=== PATIENT | male | born 1950 | race Asian ===

== ENCOUNTER 2016-07-26 00:45 | Inpatient (IN) | payer MEDICARE, MEDICAID ==
[~2016-07-26] VITALS: Ht 167.6 cm; Wt 73.5 kg
[2016-07-26] VITALS (15 sets, daily range): BP systolic 139–184; BP diastolic 77–111
[2016-07-26] MEDS ORDERED: NKM (00:52)
[2016-07-26 01:32] LABS: APPEARANCE,URINE CLEAR; KETONES,URINE 4+ (NEGATIVE); LEUKOCYTE ESTERASE ,URINE 1+ (NEGATIVE); NITRITE,URINE NEGATIVE (NEGATIVE); PH,URINE 9 (4.5-8.0); PROTEIN,URINE 2+ (NEGATIVE); UROBILINOGEN,URINE NORMAL MG/DL (0.0-1.0)
[2016-07-26 01:33] LABS: MEAN CORPUSCULAR HEMOGLOBIN 31.2 PG (27.0-31.0); MEAN CORPUSCULAR HGB CONC 32.1 G/DL (32.0-36.0); MEAN CORPUSCULAR VOLUME 97 FL (80-99); MEAN PLATELET VOLUME 7.1 FL (6.5-10.1); PLATELET COUNT 266 K/UL (150-450); RED BLOOD COUNT 5.06 M/UL (4.70-6.10); RED CELL DISTRIBUTION WIDTH 14.2 % (11.6-14.8); WHITE BLOOD COUNT 13.6 K/UL (4.8-10.8)
[2016-07-26 01:40] LABS: PROTHROMBIN TIME 10.1 SEC (9.30-11.50)
[2016-07-26] MEDS ORDERED: Morphine Sulfate 4mg/ml Inj IVP ONE ×2 (01:45→04:00)
[2016-07-26 02:05] LABS: RBC,URINE 0-2 /HPF (0 - 0)
[2016-07-26 02:06] LABS: AMORPHOUS SEDIMENT,UR MANY /LPF; BACTERIA,URINE FEW /HPF; SQUAMOUS EPITHELIAL CELL,UR OCCASIONAL /LPF (NONE/OCC)
[2016-07-26 02:13] LABS: ALANINE AMINOTRANSFERASE 15 U/L (3-41); ALBUMIN/GLOBULIN RATIO 1.5 (1.0-2.7); ANION GAP 21 (5-15); ASPARTATE AMINO TRANSFERASE 18 U/L (5-40); CALCIUM 9.4 mg/dL (8.6-10.2); CARBON DIOXIDE 21 mEQ/L (20-30); CHLORIDE 100 mEQ/L (98-107); CREATININE 1.1 mg/dL (0.7-1.2); GLOMERULAR FILTRATION RATE > 60 mL/min (>60); HEMOLYSIS 6; POTASSIUM 3.6 mEQ/L (3.4-4.9); SODIUM 142 mEQ/L (135-145); TOTAL PROTEIN 7.5 g/dL (6.6-8.7)
[2016-07-26 02:15] LABS: TROPONIN I < 0.30 ng/mL (<=0.30)
[2016-07-26 02:28] LABS: CKMB 2.7 ng/mL (< 6.7)
[2016-07-26] MEDS ORDERED: Metoclopramide 10mg/2ml Inj IVP ONE (03:00)
[2016-07-26] MEDS ORDERED: Famotidine 20 MG/ 2ML VIAL IVP ONE (03:00)
[2016-07-26] MEDS ORDERED: DiphenhydrAMINE 50mg/ml Inj IVP ONE (03:00)
--- NOTE | 2016-07-26 03:22 | Emergency Room Report ---
History of Present Illness General Chief Complaint: Abdominal Pain Source: Patient Present Illness HPI Patient presents with diffuse abdominal pain Started approximately 8 hours prior to arrival patient reports eating a heavy meal with a lot of meat fish soon after becoming nauseated and felt very heavy Patient's pain is 8/10 diffuse He has had vomiting Denies any diarrhea He feels warm but denies any obvious fever Denies any chest pain or shortness of breath denies any rash Allergies: Coded Allergies: No Known Allergies (Unverified , 07/26/16) Patient History Past Medical History: see triage record Pertinent Family History: none Reviewed Nursing Documentation: PMH: Agreed, PSxH: Agreed Nursing Documentation-PMH Past Medical History: No Stated History Review of Systems All Other Systems: negative except mentioned in HPI Physical Exam Vital Signs Date Time Temp Pulse Resp B/P Pulse Ox O2 Delivery O2 Flow Rate FiO2 07/26/16 00:44 96.4 83 16 147/85 100 Room Air Sp02 EP Interpretation: reviewed, normal General Appearance: moderate distress - Actively vomiting Head: normocephalic, atraumatic Eyes: bilateral eye EOMI, bilateral eye PERRL ENT: hearing grossly normal, normal pharynx, TMs + canals normal, uvula midline Neck: full range of motion, supple, no meningismus, no bony tend Respiratory: lungs clear, normal breath sounds, no rhonchi, no respiratory distress, no retraction, no accessory muscle use Cardiovascular #1: normal peripheral pulses, regular rate, rhythm, no edema, no gallop, no JVD, no murmur Gastrointestinal: normal bowel sounds, soft, no mass, no organomegaly, non- distended, no guarding, no hernia, no pulsatile mass, no rebound, other - Uncomfortable diffusely Genitourinary: no CVA tenderness Musculoskeletal: normal inspection Neurologic: oriented x3, responsive, associate web developer III-XII nml as tested, motor strength/ tone normal, sensory intact Psychiatric: mood/affect normal Skin: normal color, no rash, warm/dry, palpation normal Lymphatic: normal inspection, no adenopathy Medical Decision Making Diagnostic Impression: Primary Impression: Abdominal pain Additional Impressions: SBO (small bowel obstruction) Ileus Enteritis ER Course With the history exam and presentation, multiple differentials considered, including but not limited to appendicitis, gastritis, cholecystitis, diverticulitis Patient has had a previous history of appendicitis making that differential unlikely Patient's CAT scan did reveal evidence of multiple dilated fluid filled loops of small bowel Reason concern of possible obstruction versus ileus versus enterocolitis Patient has a NG. ordered N.p.o. status and admitted for further inpatient care Labs Test 07/26/16 01:10 07/26/16 01:15 White Blood Count 13.6 K/UL (4.8-10.8) Red Blood Count 5.06 M/UL (4.70-6.10) Hemoglobin 15.8 G/DL (14.2-18.0) Hematocrit 49.1 % (42.0-52.0) Mean Corpuscular Volume 97 FL (80-99) Mean Corpuscular Hemoglobin 31.2 PG (27.0-31.0) Mean Corpuscular Hemoglobin Concent 32.1 G/DL (32.0-36.0) Red Cell Distribution Width 14.2 % (11.6-14.8) Platelet Count 266 K/UL (150-450) Mean Platelet Volume 7.1 FL (6.5-10.1) Neutrophils (%) (Auto) % (45.0-75.0) Lymphocytes (%) (Auto) % (20.0-45.0) Monocytes (%) (Auto) % (1.0-10.0) Eosinophils (%) (Auto) % (0.0-3.0) Basophils (%) (Auto) % (0.0-2.0) Prothrombin Time 10.1 SEC (9.30-11.50) Prothromb Time International Ratio 1.0 (0.9-1.1) Activated Partial Thromboplast Time 23 SEC (23-33) Sodium Level 142 mEQ/L (135-145) Potassium Level 3.6 mEQ/L (3.4-4.9) Chloride Level 100 mEQ/L (98-107) Carbon Dioxide Level 21 mEQ/L (20-30) Anion Gap 21 (5-15) Blood Urea Nitrogen 17 mg/dL (7-23) Creatinine 1.1 mg/dL (0.7-1.2) Estimat Glomerular Filtration Rate > 60 mL/min (>60) Glucose Level 171 mg/dL (74-106) Calcium Level 9.4 mg/dL (8.6-10.2) Total Bilirubin 0.5 mg/dL (0.0-1.2) Aspartate Amino Transf (AST/SGOT) 18 U/L (5-40) Alanine Aminotransferase (ALT/SGPT) 15 U/L (3-41) Alkaline Phosphatase 77 U/L (40-129) Total Creatine Kinase 129 U/L (38-174) Creatine Kinase MB 2.7 ng/mL (< 6.7) Creatine Kinase MB Relative Index 2.0 Troponin I < 0.30 ng/mL (<=0.30) Total Protein 7.5 g/dL (6.6-8.7) Albumin 4.6 g/dL (3.5-5.2) Globulin 2.9 g/dL Albumin/Globulin Ratio 1.5 (1.0-2.7) Urine Color Yellow Urine Appearance Clear Urine pH 9 (4.5-8.0) Urine Specific [place] 1.015 (1.005-1.035) Urine Protein 2+ (NEGATIVE) Urine Glucose (UA) Negative (NEGATIVE) Urine Ketones 4+ (NEGATIVE) Urine Occult Blood Negative (NEGATIVE) Urine Nitrite Negative (NEGATIVE) Urine Bilirubin Negative (NEGATIVE) Urine Urobilinogen Normal MG/DL (0.0-1.0) Urine Leukocyte Esterase 1+ (NEGATIVE) Urine RBC 0-2 /HPF (0 - 0) Urine WBC 2-4 /HPF (0 - 0) Urine Squamous Epithelial Cells Occasional /LPF Urine Amorphous Sediment Many /LPF (NONE) Urine Bacteria Few /HPF (NONE) Rhythm Strip Diag. Results EP Interpretation: yes Rate: 66 Rhythm: NSR, no PVC's, no ectopy CT/MRI/US Diagnostic Results CT/MRI/US Diagnostic Results : Impression CT abdomen pelvis multiple dilated fluid-filled loops of small bowel raising concern of possible obstruction versus ileus versus enterocolitis Last Vital Signs Date Time Temp Pulse Resp B/P Pulse Ox O2 Delivery O2 Flow Rate FiO2 07/26/16 01:37 97.2 78 16 145/81 100 Room Air Status: improved Disposition: ADMITTED INPATIENT Condition: Serious Referrals: NOT CHOSEN IPA/,REFERRING (PCP) GOPAL ESCALANTE D.O. Jul 26, 2016 03:22
[2016-07-26 08:12] LABS: ANISOCYTOSIS 1+; BAND NEUTROPHILS % (MANUAL) 0 % (0-8); BASOPHILS % (MANUAL) 0 % (0-2); EOSINOPHILS % (MANUAL) 0 % (0-3); LYMPHOCYTES % (MANUAL) 4 % (20-45); NEUTROPHILS % (MANUAL) 92 % (45-75); PLATELET ESTIMATE ADEQUATE; PLATELET MORPHOLOGY NORMAL; TOTAL CELLS COUNTED 100
[2016-07-26] MEDS ORDERED: HYDROmorphone 1mg/ml Carpuject IVP PRN ×2 (08:15→17:45)
[2016-07-26] MEDS ORDERED: Metoclopramide 10mg/2ml Inj IVP PRN ×2 (08:15→17:45)
--- NOTE | 2016-07-26 08:19 | General Surgery Progress Note ---
General Surgery-Progress Note Subjective Chief Complaint: abdominal pain & vomiting Objective Last 24 Hour Vital Signs Date Time Temp Pulse Resp B/P Pulse Ox O2 Delivery O2 Flow Rate FiO2 07/26/16 04:30 98.1 85 16 139/77 99 Room Air 07/26/16 04:30 85 16 139/77 99 Room Air 07/26/16 04:00 97.0 84 16 152/94 95 Room Air 07/26/16 03:30 97.1 81 14 142/79 98 Room Air 07/26/16 02:19 96.5 07/26/16 01:37 97.2 78 16 145/81 100 Room Air 07/26/16 00:44 96.4 83 16 147/85 100 Room Air I&O Intake and Output 07/25/16 07/26/16 19:00 07:00 Intake Total 500 ml Balance 500 ml Intake IV Total 500 ml # Voids 2 Respiratory: clear Abdomen: soft, distended, tenderness, present bowel sounds Extremities: no edema, no tenderness Laboratory Tests Test 07/26/16 01:10 07/26/16 01:15 White Blood Count 13.6 K/UL (4.8-10.8) H Red Blood Count 5.06 M/UL (4.70-6.10) Hemoglobin 15.8 G/DL (14.2-18.0) Hematocrit 49.1 % (42.0-52.0) Mean Corpuscular Volume 97 FL (80-99) Mean Corpuscular Hemoglobin 31.2 PG (27.0-31.0) H Mean Corpuscular Hemoglobin Concent 32.1 G/DL (32.0-36.0) Red Cell Distribution Width 14.2 % (11.6-14.8) Platelet Count 266 K/UL (150-450) Mean Platelet Volume 7.1 FL (6.5-10.1) Neutrophils (%) (Auto) % (45.0-75.0) Lymphocytes (%) (Auto) % (20.0-45.0) Monocytes (%) (Auto) % (1.0-10.0) Eosinophils (%) (Auto) % (0.0-3.0) Basophils (%) (Auto) % (0.0-2.0) Neutrophils % (Manual) Pending Lymphocytes % (Manual) Pending Platelet Estimate Pending Platelet Morphology Pending Prothrombin Time 10.1 SEC (9.30-11.50) Prothromb Time International Ratio 1.0 (0.9-1.1) Activated Partial Thromboplast Time 23 SEC (23-33) Sodium Level 142 mEQ/L (135-145) Potassium Level 3.6 mEQ/L (3.4-4.9) Chloride Level 100 mEQ/L (98-107) Carbon Dioxide Level 21 mEQ/L (20-30) Anion Gap 21 (5-15) H Blood Urea Nitrogen 17 mg/dL (7-23) Creatinine 1.1 mg/dL (0.7-1.2) Estimat Glomerular Filtration Rate > 60 mL/min (>60) Glucose Level 171 mg/dL (74-106) H Calcium Level 9.4 mg/dL (8.6-10.2) Total Bilirubin 0.5 mg/dL (0.0-1.2) Aspartate Amino Transf (AST/SGOT) 18 U/L (5-40) Alanine Aminotransferase (ALT/SGPT) 15 U/L (3-41) Alkaline Phosphatase 77 U/L (40-129) Total Creatine Kinase 129 U/L (38-174) Creatine Kinase MB 2.7 ng/mL (< 6.7) Creatine Kinase MB Relative Index 2.0 Troponin I < 0.30 ng/mL (<=0.30) Total Protein 7.5 g/dL (6.6-8.7) Albumin 4.6 g/dL (3.5-5.2) Globulin 2.9 g/dL Albumin/Globulin Ratio 1.5 (1.0-2.7) Urine Color Yellow Urine Appearance Clear Urine pH 9 (4.5-8.0) Urine Specific [place] 1.015 (1.005-1.035) Urine Protein 2+ (NEGATIVE) H Urine Glucose (UA) Negative (NEGATIVE) Urine Ketones 4+ (NEGATIVE) H Urine Occult Blood Negative (NEGATIVE) Urine Nitrite Negative (NEGATIVE) Urine Bilirubin Negative (NEGATIVE) Urine Urobilinogen Normal MG/DL (0.0-1.0) Urine Leukocyte Esterase 1+ (NEGATIVE) H Urine RBC 0-2 /HPF (0 - 0) H Urine WBC 2-4 /HPF (0 - 0) Urine Squamous Epithelial Cells Occasional /LPF Urine Amorphous Sediment Many /LPF (NONE) H Urine Bacteria Few /HPF (NONE) Assessment Additional Comments SBO Plan Additional Comments conservative treatment if not effective he will require Ex Lap EDWIN NOGUEIRA Jul 26, 2016 08:19
[2016-07-26] MEDS ORDERED: Pantoprazole Inj IVP SCH (09:00)
--- NOTE | 2016-07-26 09:13 | Diagnostic Imaging Report ---
Indication: Abdominal pain Technique: Continuous helical transaxial imaging of the abdomen and pelvis was obtained from the lung bases to the pubic symphysis during intravenous contrast administration. Coronal 2-D reformats were also obtained. Study obtained in a Siemens sensation [address] Total Dose length Product (DLP): [address] Dose Index Volume (CTDIvol): 17.3 mGy Comparison: None Findings: Within the mid and lower abdomen region there is a segment of moderately dilated fluid-filled small bowel with associated mesenteric edema suspicious for closed-loop bowel obstruction. Both proximal and distal ends of the dilated segment transition to small caliber bowel toward the right side. There is no pneumatosis or free air. There is a small amount of ascites. Proximal jejunum does not appear dilated. Hiatal hernia is present. The lung bases are clear. The gallbladder, liver, spleen, adrenal glands and kidneys are unremarkable in appearance. Appendix is not seen. Urinary bladder is unremarkable. Small bilateral inguinal hernias containing fat noted. Prostate is somewhat prominent there is prostate calcification. Prostate size is about 5.5 x 4.5 x 5.0 CM. Impression: Suspicion of a mid to distal small bowel obstruction (closed-loop type) as discussed above. Findings may be due to an adhesion or internal hernia. No evidence of perforation or pneumatosis. Mild associated ascites. Small hiatal hernia Prostate hypertrophy Bilateral inguinal hernias containing fat Critical value communication. Findings were discussed and reviewed with Dr. Murrieta @ 9:04 am, 07/26/16. [facility] has communicated the preliminary results to the Emergency Department. Their findings are largely concordant with this report. Preliminary results transmitted at 02:51 to the emergency department. The CT scanner at [facility] is accredited by the [employer] and the scans are performed using protocols designed to limit radiation exposure to as low as reasonably achievable to attain images of sufficient resolution adequate for diagnostic evaluation.
[2016-07-26] MEDS ORDERED: D5 1/2NS w/KCl 20mEq 1,000 ML IV SCH (10:00)
--- NOTE | 2016-07-26 10:07 | Consultation ---
DATE OF CONSULTATION: 07/26/2016 REASON FOR CONSULTATION: Abdominal pain and vomiting. REQUESTING PHYSICIAN: Teo Love M.D. HISTORY OF PRESENT ILLNESS: This is a 65-year-old [place] male who presented to emergency room complaining of abdominal pain since yesterday afternoon. He stated that the pain started about 5 o'clock yesterday afternoon. The pain is located periumbilical and all over the abdomen. Apparently, the pain is steady with a crampy component. He has vomited. He claims that after the onset of pain, he had one small bowel movement but did not pass any gas. He denies any previous history of similar pain. He had only surgery that he has had an appendectomy about 40 years ago. He denies fever, cough, dysuria, or frequency. PAST MEDICAL HISTORY: Asthma, diabetes, hypertension, cardiac and renal diseases. PAST SURGICAL HISTORY: Appendectomy. MEDICATIONS: Vitamins. ALLERGIES: He denies allergies. SOCIAL HISTORY: This is a 65-year-old [place] male with two children. He is retired. He denies smoking, but drinks occasionally. REVIEW OF SYSTEMS: He has nocturia twice at night. PHYSICAL EXAMINATION: GENERAL: The patient appeared to be a well-developed and well-nourished 65-year-old, oriental male, lying on the bed complaining of abdominal pain. HEENT: Head is normocephalic and atraumatic. Eyes, pupils are equal, round, reactive to light. Mouth is clear. NECK: There is no palpable thyromegaly or adenopathy. CHEST: Clear to auscultation and percussion. HEART: There is no gallop or murmur. S1 and S2 are within normal limits. ABDOMEN: Mildly distended, but soft. He has tenderness at the lower abdomen, but there is no rebound tenderness or guarding. Bowel sounds are present. GENITAL: There is no hernia. EXTREMITIES: Within normal limits. LABORATORY DATA: CBC has shown a WBC of 13,600. Differential is not available. Chemistry is normal. UA normal. CAT scan of the abdomen has been interpreted as small bowel obstruction. ASSESSMENT: Small bowel obstruction. RECOMMENDATION: At this time, the patient on conservative treatment with IV fluids and NG tube. If it does not open up he will require an exploratory laparotomy. This has been explained to the patient. He understood and accepted. Wisam Murrieta M.D. DR: Jose Alberto JOB#: [id number] CC:
--- NOTE | 2016-07-26 12:01 | Infectious Diseases Prog Note ---
Assessment/Plan Problems: (1) Sepsis Assessment & Plan: will start zosyn empirically, and send blood culture , source most likely GI tract (2) SBO (small bowel obstruction) Assessment & Plan: will order lactic acid, and lipase , keep NPO, continue IVF , and pain management , general surgery is following (3) Abdominal pain Assessment & Plan: due to SBO, continue pain management, surgery is following Subjective Allergies: Coded Allergies: No Known Allergies (Unverified , 07/26/16) Objective Vital Signs Last 24 Hour Vital Signs Date Time Temp Pulse Resp B/P Pulse Ox O2 Delivery O2 Flow Rate FiO2 07/26/16 08:00 98.2 100 20 148/97 98 Room Air 07/26/16 04:30 98.1 85 16 139/77 99 Room Air 07/26/16 04:30 85 16 139/77 99 Room Air 07/26/16 04:00 97.0 84 16 152/94 95 Room Air 07/26/16 03:30 97.1 81 14 142/79 98 Room Air 07/26/16 02:19 96.5 07/26/16 01:37 97.2 78 16 145/81 100 Room Air 07/26/16 00:44 96.4 83 16 147/85 100 Room Air Height (Feet): 5 Height (Inches): 6.00 Weight (Pounds): 162 Laboratory Tests Test 07/26/16 01:10 07/26/16 01:15 White Blood Count 13.6 K/UL (4.8-10.8) H Red Blood Count 5.06 M/UL (4.70-6.10) Hemoglobin 15.8 G/DL (14.2-18.0) Hematocrit 49.1 % (42.0-52.0) Mean Corpuscular Volume 97 FL (80-99) Mean Corpuscular Hemoglobin 31.2 PG (27.0-31.0) H Mean Corpuscular Hemoglobin Concent 32.1 G/DL (32.0-36.0) Red Cell Distribution Width 14.2 % (11.6-14.8) Platelet Count 266 K/UL (150-450) Mean Platelet Volume 7.1 FL (6.5-10.1) Neutrophils (%) (Auto) % (45.0-75.0) Lymphocytes (%) (Auto) % (20.0-45.0) Monocytes (%) (Auto) % (1.0-10.0) Eosinophils (%) (Auto) % (0.0-3.0) Basophils (%) (Auto) % (0.0-2.0) Differential Total Cells Counted 100 Neutrophils % (Manual) 92 % (45-75) H Lymphocytes % (Manual) 4 % (20-45) L Monocytes % (Manual) 4 % (1-10) Eosinophils % (Manual) 0 % (0-3) Basophils % (Manual) 0 % (0-2) Band Neutrophils 0 % (0-8) Platelet Estimate Adequate Platelet Morphology Normal Anisocytosis 1+ Prothrombin Time 10.1 SEC (9.30-11.50) Prothromb Time International Ratio 1.0 (0.9-1.1) Activated Partial Thromboplast Time 23 SEC (23-33) Sodium Level 142 mEQ/L (135-145) Potassium Level 3.6 mEQ/L (3.4-4.9) Chloride Level 100 mEQ/L (98-107) Carbon Dioxide Level 21 mEQ/L (20-30) Anion Gap 21 (5-15) H Blood Urea Nitrogen 17 mg/dL (7-23) Creatinine 1.1 mg/dL (0.7-1.2) Estimat Glomerular Filtration Rate > 60 mL/min (>60) Glucose Level 171 mg/dL (74-106) H Calcium Level 9.4 mg/dL (8.6-10.2) Total Bilirubin 0.5 mg/dL (0.0-1.2) Aspartate Amino Transf (AST/SGOT) 18 U/L (5-40) Alanine Aminotransferase (ALT/SGPT) 15 U/L (3-41) Alkaline Phosphatase 77 U/L (40-129) Total Creatine Kinase 129 U/L (38-174) Creatine Kinase MB 2.7 ng/mL (< 6.7) Creatine Kinase MB Relative Index 2.0 Troponin I < 0.30 ng/mL (<=0.30) Total Protein 7.5 g/dL (6.6-8.7) Albumin 4.6 g/dL (3.5-5.2) Globulin 2.9 g/dL Albumin/Globulin Ratio 1.5 (1.0-2.7) Urine Color Yellow Urine Appearance Clear Urine pH 9 (4.5-8.0) Urine Specific [place] 1.015 (1.005-1.035) Urine Protein 2+ (NEGATIVE) H Urine Glucose (UA) Negative (NEGATIVE) Urine Ketones 4+ (NEGATIVE) H Urine Occult Blood Negative (NEGATIVE) Urine Nitrite Negative (NEGATIVE) Urine Bilirubin Negative (NEGATIVE) Urine Urobilinogen Normal MG/DL (0.0-1.0) Urine Leukocyte Esterase 1+ (NEGATIVE) H Urine RBC 0-2 /HPF (0 - 0) H Urine WBC 2-4 /HPF (0 - 0) Urine Squamous Epithelial Cells Occasional /LPF Urine Amorphous Sediment Many /LPF (NONE) H Urine Bacteria Few /HPF (NONE) Current Medications Medications (Trade) Dose Ordered Sig/Arti Route PRN Reason Start Time Stop Time Status Last Admin Dose Admin Dextrose/ Electrolytes (D5 0.45%NS W/ KCl 20mEq) 1,000 ml @ 100 mls/hr Q10H IV 07/26/16 10:00 08/25/16 09:59 07/26/16 11:11 Hydromorphone HCl (Dilaudid) 1 mg Q4H PRN IVP For Pain 07/26/16 08:15 08/02/16 08:14 07/26/16 11:10 Metoclopramide HCl (Reglan) 10 mg Q8H PRN IVP Nausea & Vomiting 07/26/16 08:15 08/25/16 08:14 07/26/16 11:04 Pantoprazole (Protonix) 40 mg DAILY IVP 07/26/16 09:00 08/25/16 08:59 07/26/16 11:04 Piyush Harris M.D. Jul 26, 2016 12:01
--- NOTE | 2016-07-26 15:13 | Pre-Procedure Note/Attestation ---
Pre-Procedure Note/Attestation Complete Prior to Procedure Planned Procedure: not applicable Procedure Narrative: Exploratory Laparotomy Indications for Procedure Pre-Operative Diagnosis: Small bowel obstruction Attestation I attest that I discussed the nature of the procedure; its benefits; risks and complications; and alternatives (and the risks and benefits of such alternatives ), prior to the procedure, with the patient (or the patient's legal herbicide service sales representative). I attest that, if there was a reasonable possibility of needing a blood transfusion, the patient (or the patient's legal herbicide service sales representative) was given the [facility] standardized written summary, pursuant to the Nas Ramírez Blood Safety Act ([place] Health and Safety Code # 1645, as amended). I attest that I re-evaluated the patient just prior to the surgery and that there has been no change in the patient's H&P, except as documented below: EDWIN NOGUEIRA Jul 26, 2016 15:13
--- NOTE | 2016-07-26 16:15 | Anethesia Preoperative Eval ---
Anesthesia Pre-op PMH/ROS General Date of Evaluation: Jul 26, 2016 Anesthesiologist: Anup ASA Score: ASA 2 Mallampati Score Class I : Soft palate, uvula, fauces, pillars visible Class II: Soft palate, uvula, fauces visible Class III: Soft palate, base of uvula visible Class IV: Only hard plate visible Mallampati Classification: Class III Surgeon: Lit Diagnosis: Bowel obstruction Surgical Procedure: Ex-lap, release of SBO Anesthesia History: none Family History: no anesthesia problems Allergies: Coded Allergies: No Known Allergies (Unverified , 07/26/16) Medications: see eMAR Past Medical History Cardiovascular: Reports: HTN, Denies: CAD, ID, arrhythmia, other, valve dz Pulmonary: Denies: COPD, SOFIYA, asthma, other Gastrointestinal/Genitourinary: Reports: other - SBO, Denies: CRI, ESRD, GERD 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: Denies: CVA, TIA, dementia, depression/anxiety, other Endocrine: Denies: DM, hypothyroidism, other, steroids HEENT: Denies: PECHANGA (L), PECHANGA (R), cataract (L), cataract (R), glaucoma, other Hematology/Immune: Denies: DVT, anemia, bleeding disorder, other Musculoskeletal/Integumentary: Denies: DDD, DJD, OA, RA, edema, other PSxH Narrative: lap appy Anesthesia Pre-op Phys. Exam Physician Exam Last Vital Signs Date Time Temp Pulse Resp B/P Pulse Ox O2 Delivery O2 Flow Rate FiO2 07/26/16 12:00 99.0 97 20 152/102 99 Room Air Constitutional: NAD Cardiovascular: RRR Respiratory: CTA Airway Exam Mallampati Score: Class II MO: full ROM: full Anesthesia Pre-op A/P Labs Hematology Test 07/26/16 01:10 White Blood Count 13.6 K/UL (4.8-10.8) H Red Blood Count 5.06 M/UL (4.70-6.10) Hemoglobin 15.8 G/DL (14.2-18.0) Hematocrit 49.1 % (42.0-52.0) Mean Corpuscular Volume 97 FL (80-99) Mean Corpuscular Hemoglobin 31.2 PG (27.0-31.0) H Mean Corpuscular Hemoglobin Concent 32.1 G/DL (32.0-36.0) Red Cell Distribution Width 14.2 % (11.6-14.8) Platelet Count 266 K/UL (150-450) Mean Platelet Volume 7.1 FL (6.5-10.1) Neutrophils (%) (Auto) % (45.0-75.0) Lymphocytes (%) (Auto) % (20.0-45.0) Monocytes (%) (Auto) % (1.0-10.0) Eosinophils (%) (Auto) % (0.0-3.0) Basophils (%) (Auto) % (0.0-2.0) Differential Total Cells Counted 100 Neutrophils % (Manual) 92 % (45-75) H Lymphocytes % (Manual) 4 % (20-45) L Monocytes % (Manual) 4 % (1-10) Eosinophils % (Manual) 0 % (0-3) Basophils % (Manual) 0 % (0-2) Band Neutrophils 0 % (0-8) Platelet Estimate Adequate Platelet Morphology Normal Anisocytosis 1+ Coagulation Test 07/26/16 01:10 Prothrombin Time 10.1 SEC (9.30-11.50) Prothromb Time International Ratio 1.0 (0.9-1.1) Activated Partial Thromboplast Time 23 SEC (23-33) Chemistry Test 07/26/16 01:10 Sodium Level 142 mEQ/L (135-145) Potassium Level 3.6 mEQ/L (3.4-4.9) Chloride Level 100 mEQ/L (98-107) Carbon Dioxide Level 21 mEQ/L (20-30) Anion Gap 21 (5-15) H Blood Urea Nitrogen 17 mg/dL (7-23) Creatinine 1.1 mg/dL (0.7-1.2) Estimat Glomerular Filtration Rate > 60 mL/min (>60) Glucose Level 171 mg/dL (74-106) H Calcium Level 9.4 mg/dL (8.6-10.2) Total Bilirubin 0.5 mg/dL (0.0-1.2) Aspartate Amino Transf (AST/SGOT) 18 U/L (5-40) Alanine Aminotransferase (ALT/SGPT) 15 U/L (3-41) Alkaline Phosphatase 77 U/L (40-129) Total Creatine Kinase 129 U/L (38-174) Creatine Kinase MB 2.7 ng/mL (< 6.7) Creatine Kinase MB Relative Index 2.0 Troponin I < 0.30 ng/mL (<=0.30) Total Protein 7.5 g/dL (6.6-8.7) Albumin 4.6 g/dL (3.5-5.2) Globulin 2.9 g/dL Albumin/Globulin Ratio 1.5 (1.0-2.7) Studies Pre-op Studies: EKG - sr Risk Assessment & Plan Assessment: ASA IIE Plan: GA-ETT Status Change Before Surgery: No Pre-Antibiotics Drug: Ancef 1g Given Within 1 Hr of Incision: Yes Time Given: 16:45 MARC BARTLETT M.D. Jul 26, 2016 16:15
[2016-07-26] MEDS ORDERED: Bupivacaine 0.25% Inj 30ml INJ ONE (16:16)
[2016-07-26] MEDS ORDERED: Propofol 10mg/ml 20ml IV ONE (16:17)
[2016-07-26] MEDS ORDERED: Bacitracin 50000 Units Vial ONE (16:18)
[2016-07-26] MEDS ORDERED: Zemuron 50mg/5ml Inj IV ONE (16:30)
[2016-07-26] MEDS ORDERED: Dexamethasone 4mg/ml vial ONE (16:30)
[2016-07-26] MEDS ORDERED: Neostigmine 1mg/ml 10ml Inj ONE (16:30)
[2016-07-26] MEDS ORDERED: Glycopyrrolate 0.2mg/ml 1ml Vial ONE (16:30)
[2016-07-26] MEDS ORDERED: LR 1000ml ONE (16:30)
[2016-07-26] MEDS ORDERED: fentaNYL 250mcg/5ml ONE (16:30)
[2016-07-26] MEDS ORDERED: Lidocaine 1% MPF 10mg/ml 5ml ONE (16:30)
[2016-07-26] MEDS ORDERED: Midazolam 2mg/2ml Inj ONE (16:30)
[2016-07-26] MEDS ORDERED: NS Irrig 1000ml ONE (16:30)
[2016-07-26] MEDS ORDERED: Sterile Water Irrig 1000ml IRRIG ONE (16:30)
[2016-07-26] MEDS ORDERED: LR 1000ml 1,000 ML IVLG SCH (16:59)
[2016-07-26] MEDS ORDERED: Ketorolac 30mg Inj IV PRN (17:00)
[2016-07-26] MEDS ORDERED: DiphenhydrAMINE 50mg/ml Inj IVP PRN (17:00)
[2016-07-26] MEDS ORDERED: fentaNYL 100 mcg/2 mL IV PRN (17:00)
[2016-07-26] MEDS ORDERED: Labetalol 5mg/ml 20ml vial IV PRN (17:00)
[2016-07-26] MEDS ORDERED: Hydromorphone 0.5mg/0.5ml inj IVP PRN ×2 (17:00→17:45)
--- NOTE | 2016-07-26 17:07 | Immediate Post-Op Evaluation ---
Immediate Post-Op Evalulation Immediate Post-Op Evalulation Procedure: Exploratory laparotomy Date of Evaluation: Jul 26, 2016 Time of Evaluation: 17:53 IV Fluids: 1.4L Blood Products: 0 Estimated Blood Loss: min Urinary Output: 300 Blood Pressure Systolic: 172 Blood Pressure Diastolic: 111 Pulse Rate: 102 Respiratory Rate: 12 O2 Sat by Pulse Oximetry: 100 Temperature (Fahrenheit): 97.4 Pain Score (1-10): 0 Nausea: No Vomiting: No Complications 0 Patient Status: awake, reacts, patent, none Hydration Status: adequate Drug: Ancef 1g Given Within 1 Hr of Incision: Yes Time Given: 16:45 MARC BARTLETT M.D. Jul 26, 2016 17:07
--- NOTE | 2016-07-26 17:44 | Brief Operative Note ---
Immediate Post Operative Note Operative Note Pre-op Diagnosis: Small bowel obstruction Post-op Diagnosis: valvolus of small bowel Findings: consistent w/pre-op dx studies Surgeon: MD Alpesh Gate Clerk: none Anesthesiologist: Dr. Alanis Anesthesia: general Specimen: none Complications: none Condition: stable Drains: none Implant(s) used?: No EDWIN NOGUEIRA Jul 26, 2016 17:44
[2016-07-26] MEDS ORDERED: Acetaminophen 650 MG SUPP RECTAL PRN (17:45)
[2016-07-26 19:29] LABS: PATH BLOOD SMEAR/OMC SENT TO PATHOLOGIST
[2016-07-26] MEDS: D5 1/2NS w/KCl 20mEq 1,000 ML IV SCH (20:53)
--- NOTE | 2016-07-26 22:58 | Consultation ---
DATE OF CONSULTATION: INFECTIOUS DISEASE CONSULTATION REQUESTING PHYSICIAN: Teo Love M.D. REASON FOR CONSULTATION: Sepsis, small bowel obstruction, recommendation for antibiotic therapy. HISTORY OF PRESENT ILLNESS: The patient is a 65-year-old male, presented to the emergency room at [facility] with chief complaint of abdominal pain that started yesterday in the afternoon. The pain was mainly around the umbilicus and then became generalized. The patient had sharp dull aches, sometimes cramp like. His pain was 10/10, improved when he vomited and had bowel movement and since then, did not pass any gas. The patient never had any previous history of similar abdominal pain. He had appendectomy in the past, but no bowel surgery or colon surgery. The patient denied any fever or chills. No shortness of breath or cough. No urinary symptoms. No blood in the stool. The patient was found to have leukocytosis. CT scan of the abdomen showed bowel obstruction. I was consulted by the primary provider for antibiotics recommendation. REVIEW OF SYSTEMS: A 14-point of system reviewed were all negative apart from the one I mentioned above in my history and physical. PAST MEDICAL HISTORY: Significant for asthma, diabetes, hypertension, cardiac disease, and chronic renal disease. PAST SURGICAL HISTORY: He had appendectomy. ALLERGIES: He has no drug allergy. MEDICATIONS: He is on pantoprazole, hydromorphone, and metoclopramide. SOCIAL HISTORY: The patient is retired. Denied recent tobacco or drugs. He drinks alcohol occasionally. FAMILY HISTORY: Not contributory. PHYSICAL EXAMINATION: VITAL SIGNS: Temperature 99, pulse 97, respirations 20, blood pressure 152/102, and pulse oximetry 99% on room air. GENERAL: A middle-aged male, lying in bed, complains of abdominal discomfort, not in acute distress. HEENT: Normocephalic and atraumatic. Pupils both reactive to light equally. Moist oral mucosa. No exudate. NECK: Supple. No lymphadenopathy. CARDIOVASCULAR: Regular rate and rhythm. S1, S2 normal. LUNGS: Clear to auscultation. ABDOMEN: Soft. Tender in the lower part. No rebound or guarding. Bowel sounds are present. Mildly distended. EXTREMITIES: No edema. No cyanosis. SKIN: No rash. No ulcer. LABORATORY AND DIAGNOSTIC DATA: Imaging: CT scan, abdomen and pelvis showed mid to distal small bowel obstruction, closed loop type as discussed, finding may be due to adhesions or internal hernia. No evidence of perforation or pneumatosis. Mild associated ascites. Small hiatal hernia. Prostate hypertrophy. Bilateral inguinal hernia containing fat. CBC showed white count of 13.6, hemoglobin of 15.8, and platelet count of 266,000. BUN of 17, creatinine of 1.1. AST of 18 and ALT of 16. Urinalysis showed +4 ketones, +1 leukocyte esterase, 2 to 4 WBC, and few bacteria. ASSESSMENT AND PLAN: 1. Sepsis. The patient will be started on Zosyn empirically. We will send blood culture. This source most likely gastrointestinal tract. 2. Small bowel obstruction. We will order lactic acid and likely keep NPO. Continue intravenous fluids and pain management. General surgery is following. 3. Abdominal pain with nausea and vomiting due to small bowel obstruction. Continue pain management and hydration. Surgery is following. Piyush Harris M.D. DR: ABELARDO JOB#: [id number] CC:
[2016-07-27] VITALS (13 sets, daily range): BP systolic 81–121; BP diastolic 43–89
--- NOTE | 2016-07-27 01:58 | History and Physical Report ---
DATE OF ADMISSION: 07/26/2016 HISTORY OF PRESENT ILLNESS: The patient is being admitted for SBO and abdominal pain. The patient had couple of days, and had leukocytosis. Dr. Murrieta was consulted. The patient is to exploratory laparotomy with Dr. Murrieta. PAST MEDICAL HISTORY: Significant for hypertension, GERD, and history of ileus. PAST SURGICAL HISTORY: None. MEDICATIONS: Unknown. ALLERGIES: No known allergies. FAMILY HISTORY: Noncontributory. SOCIAL HISTORY: Denies history of smoking, alcohol, or illicit drugs. REVIEW OF SYSTEMS: HEENT: Denies headache. Respiratory: Denies shortness of breath. Denies cough. Cardiovascular: Denies chest pain. GI: Complains of nausea, vomiting, and abdominal pain . FLIGHT SERVICE SPECIALIST: Denies change in vision or speech pattern. PHYSICAL EXAMINATION: VITAL SIGNS: Temperature is 97.1 degrees, pulse is 81, and blood pressure is 142/79. HEENT: PERRLA. NECK: Supple. No lymphadenopathy. CHEST: Clear to auscultation. GI: Soft. Diffuse tenderness. Positive bowel sounds. No organomegaly. NEUROLOGIC: Reflexes are equal on both sides. LABORATORY DATA: WBC of 13.2, hemoglobin 15.8, and platelets 266,000. Sodium 142, potassium 3.6, BUN of 17, creatinine 1.1, and glucose of 171. Imaging showed SBO. Dr. Murrieta, Dr. Rai, Dr. Harris, Dr. Jennings, and consulted for the pain control and above-mentioned diagnoses and treatment for dehydation. Teo Love M.D. DR: ALYSSA JOB#: [id number] CC:
--- NOTE | 2016-07-27 02:28 | Operative Note - Dictated ---
DATE OF OPERATION: 07/26/2016 PREOPERATIVE DIAGNOSIS: Small bowel obstruction. POSTOPERATIVE DIAGNOSIS: Small bowel obstruction due to the _valvolus of the small bowel. OPERATION: Exploratory laparotomy and lysis of the adhesion. COMPLICATIONS: None. SURGEON: Wisam Murrieta M.D. IMMIGRATION MANAGER: None. ANESTHESIA: General with endotracheal tube. ANESTHESIOLOGIST: Dr. Anderson. Indication: This is a 65-year-old Malay male, who presented to emergency room complaining of abdominal pain and vomiting. He stated the pain started about 5:30 in the afternoon yesterday, was located periumbilical associated with nausea and vomiting. The only surgery that he has had was an appendectomy, which has been performed 40 years ago. Physical examination showed mildly distended abdomen with mild tenderness mainly in the lower abdomen. CBC was showed WBC of 13,000 with a left shift. Chemistry was normal. CAT scan of the abdomen was interpreted as small bowel obstruction, but long discussion with Dr. Hanks, he stated that there was an area of the edema of the mesentery and there was a possibility of the closed loop obstruction. The patient was placed on the conservative treatment, but there was no improvement and physical examination again after a few hours showed more tenderness at the lower abdomen, which seemed that contained a soft mass in the area, so the decision was made for exploratory laparotomy. Procedure: The patient was placed supine on the operating table. After general anesthesia with endotracheal tube, the abdomen was properly prepped and draped. A midline incision was given from above the umbilicus to pubis. This incision was carried sharply through subcutaneous tissue fascia and peritoneum and entering the intraperitoneal cavity, the large amount of bloody fluid was encountered, which was suctioned out. Exploration was performed, which showed a very large segment of the small bowel, which was very cyanotic. The patient had _twisted of the small bowel in this area, which was the proximal small bowel and the loop was about 24 inches. The vavulos was released. The small bowel was run and everything was normal. The small bowel was packed in the warm lap and cyanotic color gradually improved and was pink. The bowel in this area had peristalsis and so it was decided that the bowel was viable, so the resection was not performed. There was adhesion at the right lower quadrant of the abdomen, which was mainly between the omentum and abdominal wall. Enlarge adhesion of the cecum to the abdominal wall. The adhesion of the omentum to the abdominal wall was released and the bowels were returned into the intraperitoneal cavity. This cavity was irrigated with antibiotic solution and then another observation was performed, which showed that the bowel was very pink and not cyanotic anymore and so the incision was approximated with running suture of 0 Vicryl for posterior fascia and peritoneum. A #1 Prolene for the anterior fascia and multiple cristy for skin incision. The incision was infiltrated with total of 30 mL of Marcaine 0.25%. The patient tolerated the procedure very well and was transferred to recovery room in stable condition and extubated. The sponge and needle count correct. Estimated blood loss 20 mL. Condition of the patient at the end the procedure was stable. Wisam Murrieta M.D. DR: Evy JOB#: [id number] CC: DIANA
[2016-07-27 07:31] LABS: CALCIUM 8.3 mg/dL (8.6-10.2); GLOMERULAR FILTRATION RATE 21.1 mL/min (>60); POTASSIUM 5.4 mEQ/L (3.4-4.9)
[2016-07-27 07:34] LABS: MEAN CORPUSCULAR HEMOGLOBIN 30.5 PG (27.0-31.0); MEAN CORPUSCULAR VOLUME 95 FL (80-99); MEAN PLATELET VOLUME 7.3 FL (6.5-10.1); PLATELET COUNT 322 K/UL (150-450); RED BLOOD COUNT 5.87 M/UL (4.70-6.10); RED CELL DISTRIBUTION WIDTH 13.3 % (11.6-14.8); WHITE BLOOD COUNT 19.1 K/UL (4.8-10.8)
[2016-07-27 07:41] LABS: REFLEX LACTIC ACID YES OR NO YES
[2016-07-27] MEDS: D5 1/2NS w/KCl 20mEq 1,000 ML IV SCH (08:00)
--- NOTE | 2016-07-27 08:57 | Consultation ---
DATE OF CONSULTATION: 07/26/2016 GASTROENTEROLOGY CONSULTATION REPORT CHIEF COMPLAINT: I was asked to see this patient by Dr. Teo Love for evaluation of bowel obstruction. HISTORY OF PRESENT ILLNESS: The patient is a pleasant 65-year-old man, who was in his usual state of health until one day prior to admission when he noticed abdominal discomfort, pain, nausea, and vomiting. He has appendectomy 40 years ago. He has had no history of obstruction before. He has not had a colonoscopy in the past. The abdomen is distended and was found to have bowel obstruction. Therefore, admitted decompression. The patient had colonoscopy. PAST MEDICAL HISTORY: Otherwise negative. PAST SURGICAL HISTORY: Status post appendectomy. MEDICATIONS: See chart list for details. SOCIAL HISTORY: The patient is . He does not smoke. He drinks occasionally. He has two children. FAMILY HISTORY: Noncontributory. REVIEW OF SYSTEMS: Otherwise negative. PHYSICAL EXAMINATION: GENERAL: Pleasant man, seen in his room. HEENT: Normocephalic and atraumatic. Sclerae are nonicteric. Oropharynx is clear. NECK: Supple. CHEST: Clear to auscultation. CARDIOVASCULAR: Regular rhythm and rate. ABDOMEN: Soft, distended, tender to palpation diffusely with mild guarding rebound. EXTREMITIES: No edema. LABORATORY DATA: imaging studies as noted. ASSESSMENT: This patient presents with nausea, vomiting, abdominal distention, abdominal discomfort, and bowel obstruction . He appears to be uncomfortable and not salvaged by nasogastric suction therefore I favor surgical approach to decompress the bowel and obstruction. nasogastric tube suction to be continued and I will keep the patient NPO with IV fluids blockers. RECOMMENDATIONS: Per above discussion and per orders written in the chart. Thank you for asking me to participate in the care of this patient. Erlin Jennings M.D. DR: Meredith JOB#: [id number] CC:
--- NOTE | 2016-07-27 08:58 | Consultation ---
History of Present Illness General Date patient seen: Jul 27, 2016 Chief Complaint: Abdominal Pain Present Illness Allergies: Coded Allergies: No Known Allergies (Unverified , 07/26/16) Medication History Scheduled No Known Medications* (NKM - No Known Medications*), 0 ., (Reported) Patient History Healthcare decision maker Resuscitation status Full Code Advanced Directive on File Physical Exam Last 24 Hour Vital Signs Date Time Temp Pulse Resp B/P Pulse Ox O2 Delivery O2 Flow Rate FiO2 07/27/16 04:00 97.0 110 20 118/86 96 Room Air 07/27/16 00:00 96.8 100 16 121/89 95 Room Air 07/26/16 19:15 98.0 93 16 164/105 100 Nasal Cannula 3.0 07/26/16 19:00 88 18 152/110 100 Nasal Cannula 3.0 07/26/16 18:45 92 16 166/106 100 Nasal Cannula 3.0 07/26/16 18:45 97.1 07/26/16 18:28 98 15 167/104 100 Nasal Cannula 3.0 07/26/16 18:15 97 17 181/110 100 Nasal Cannula 3.0 07/26/16 18:00 92 15 165/102 100 Simple Mask 6.0 07/26/16 17:51 102 12 100 07/26/16 17:50 91 10 168/108 100 Simple Mask 6.0 07/26/16 17:45 100 20 184/106 100 Simple Mask 6.0 07/26/16 17:39 97.4 102 12 172/111 100 Simple Mask 6.0 07/26/16 12:00 99.0 97 20 152/102 99 Room Air Intake and Output 07/26/16 07/27/16 19:00 07:00 Intake Total 1025 ml Output Total 650 ml Balance 375 ml Intake Oral 0 ml IV Total 1025 ml Output Urine Total 650 ml # Voids 3 Laboratory Tests Test 07/27/16 06:10 White Blood Count 19.1 K/UL (4.8-10.8) H Red Blood Count 5.87 M/UL (4.70-6.10) Hemoglobin 17.9 G/DL (14.2-18.0) Hematocrit 56.0 % (42.0-52.0) H Mean Corpuscular Volume 95 FL (80-99) Mean Corpuscular Hemoglobin 30.5 PG (27.0-31.0) Mean Corpuscular Hemoglobin Concent 32.0 G/DL (32.0-36.0) Red Cell Distribution Width 13.3 % (11.6-14.8) Platelet Count 322 K/UL (150-450) Mean Platelet Volume 7.3 FL (6.5-10.1) Neutrophils (%) (Auto) % (45.0-75.0) Lymphocytes (%) (Auto) % (20.0-45.0) Monocytes (%) (Auto) % (1.0-10.0) Eosinophils (%) (Auto) % (0.0-3.0) Basophils (%) (Auto) % (0.0-2.0) Neutrophils % (Manual) Pending Lymphocytes % (Manual) Pending Platelet Estimate Pending Platelet Morphology Pending Sodium Level 139 mEQ/L (135-145) Potassium Level 5.4 mEQ/L (3.4-4.9) H Chloride Level 99 mEQ/L (98-107) Carbon Dioxide Level 14 mEQ/L (20-30) L Anion Gap 26 (5-15) H Blood Urea Nitrogen 28 mg/dL (7-23) H Creatinine 3.0 mg/dL (0.7-1.2) #H Estimat Glomerular Filtration Rate 21.1 mL/min (>60) Glucose Level 266 mg/dL (74-106) H Lactic Acid Level 8.00 mmol/L (0.66-2.22) H Calcium Level 8.3 mg/dL (8.6-10.2) L Lipase 22 U/L (< 60) Height (Feet): 5 Height (Inches): 6.00 Weight (Pounds): 162 Medications Current Medications Medications (Trade) Dose Ordered Sig/Arti Route PRN Reason Start Time Stop Time Status Last Admin Dose Admin Acetaminophen (Tylenol) 650 mg Q4H PRN RECTAL FEVER 07/26/16 17:45 08/25/16 17:44 Cefazolin Sodium/ Dextrose (Ancef/D5W 50ml) 50 ml @ 100 mls/hr Q8H IV 07/27/16 01:00 07/27/16 09:29 07/27/16 01:40 Dextrose/ Electrolytes (D5 0.45%NS W/ KCl 20mEq) 1,000 ml @ 100 mls/hr Q10H IV 07/26/16 22:00 08/25/16 21:59 07/26/16 20:53 Enoxaparin Sodium (Lovenox) 40 mg DAILY SUBQ 07/27/16 09:00 08/26/16 08:59 Fentanyl Citrate 25 mcg 25 mcg Q10M PRN IV Moderate Pain (Pain Scale 4-6) 07/26/16 17:00 07/27/16 20:30 Hydromorphone HCl (Dilaudid) 1 mg Q3H PRN IVP pain score 4-6 07/26/16 17:45 08/02/16 17:44 Hydromorphone HCl (Dilaudid) 2 mg Q3H PRN IVP pain score 7-10 07/26/16 17:45 08/02/16 17:44 07/27/16 05:39 Hydromorphone HCl 0.5 mg 0.5 mg Q3H PRN IVP Pain Score 1-3 07/26/16 17:45 08/02/16 17:44 Metoclopramide HCl (Reglan) 10 mg Q6H PRN IVP Nausea & Vomiting 07/26/16 17:45 08/25/16 17:44 Ondansetron HCl (Zofran) 4 mg Q6H PRN IVP Nausea & Vomiting 07/26/16 17:45 08/25/16 17:44 Pantoprazole 40 mg 40 mg DAILY IVP 07/27/16 09:00 08/26/16 08:59 Piperacillin Sod/ Tazobactam Sod/ Dextrose (Zosyn/D5W 100ml) 100 ml @ 25 mls/hr EVERY 8 HOURS IVPB 07/26/16 22:00 08/02/16 21:59 07/27/16 05:38 Assessment/Plan Assessment/Plan (1) Small bowel obstruction (2) Status post exploratory laparotomy (3) Intractable abdominal pain Seen dictated SHA BOSE Jul 27, 2016 08:58
[2016-07-27] MEDS ORDERED: Enoxaparin 40mg Inj SUBQ SCH (09:00)
[2016-07-27] MEDS ORDERED: Pantoprazole Inj IVP SCH ×2 (09:00→21:00)
[2016-07-27 09:08] LABS: BAND NEUTROPHILS % (MANUAL) 2 % (0-8); BASOPHILS % (MANUAL) 0 % (0-2); EOSINOPHILS % (MANUAL) 0 % (0-3); LYMPHOCYTES % (MANUAL) 6 % (20-45); NEUTROPHILS % (MANUAL) 78 % (45-75); PLATELET ESTIMATE ADEQUATE; PLATELET MORPHOLOGY NORMAL; TOTAL CELLS COUNTED 100
--- NOTE | 2016-07-27 09:09 | 48 Hour Post Anesthesia Eval ---
Post Anesthesia Evaluation Procedure: Exploratory laparotomy Date of Evaluation: Jul 27, 2016 Time of Evaluation: 09:07 Blood Pressure Systolic: 128 0: 59 Pulse Rate: 76 Respiratory Rate: 22 Temperature (Fahrenheit): 97.6 O2 Sat by Pulse Oximetry: 99 Airway: patent Nausea: No Vomiting: No Pain Intensity: 3 Hydration Status: adequate Cardiopulmonary Status: stable Mental Status/LOC: patient returned to baseline Follow-up Care/Observations: n/a Post-Anesthesia Complications: none Follow-up care needed: N/A AMY GOLDMAN M.D. Jul 27, 2016 09:09
[2016-07-27] MEDS ORDERED: D5 1/2NS 1,000 ML IV SCH (10:00)
--- NOTE | 2016-07-27 10:08 | Consultation ---
DATE OF CONSULTATION: 07/26/2016 NOTE: "POOR AUDIO QUALITY" HEMATOLOGY/ONCOLOGY CONSULTATION CONSULTING PHYSICIAN: Andrew Mendez M.D. REQUESTING PHYSICIAN: Teo Love M.D. REASON FOR CONSULTATION: Evaluation of leukocytosis. IDENTIFICATION DATA: Dear Dr. Teo Love, This is a pleasant 65-year-old male without any past medical history at this time presents to ER with abdominal pain that began yesterday, approximately ___ 12 o'clock in the morning located in the periumbilical side. The patient was consulted with surgical service, was noted to have a small bowel obstruction. CAT scan of the abdomen was reviewed. The patient was noted to have leukocytosis. Hematology service was consulted. The patient is currently on conservative measures IV fluids and NG-tube placed. PAST MEDICAL HISTORY: None noted. PAST SURGICAL HISTORY: Appendectomy. MEDICATIONS: ALLERGIES: No known drug allergies. SOCIAL HISTORY: . Two children. Retired. Multiple . REVIEW OF SYSTEMS: Constitutional: No fevers, chills, or night sweats. Skin: No rashes, lumps, or itching. HEENT: No headache, hearing, or vision changes. Breasts: No lumps, pain, or discharge. Pulmonary: No cough, sputum, or shortness of breath. Cardiovascular: No chest pain, tightness, or palpitations. Gastrointestinal: No nausea, vomiting, or diarrhea. Genitourinary: No dysuria, frequency, or urgency. Musculoskeletal: No joint swelling, muscle pain, or trauma. PHYSICAL EXAMINATION: GENERAL: is in no acute distress. VITAL SIGNS: Temperature is 98.0 degrees Fahrenheit, pulse rate 98, respiratory rate 12, blood pressure 162/104, and pulse oximetry was 100% on nasal cannula 3 liters. PULMONARY: CARDIOVASCULAR: Regular rhythm . GASTROINTESTINAL: Abdomen is soft, nontender, and nondistended. EXTREMITIES: An 1+ edema. LABORATORY DATA: INR of 1. WBC 13.6, hemoglobin 15.8, hematocrit 49, and platelet count 262,000. ASSESSMENT: 1. Leukocytosis. 2. Small bowel obstruction. 3. , status post exploratory laparotomy. 4. Surgery on board. 5. . 6. Sepsis, likely contributing to leukocytosis. 7. Abdominal pain due to small bowel obstruction. Surgery is on board following closely. RECOMMENDATIONS: 1. Peripheral smear has been ordered. 2. Continue to monitor CBC. 3. Follow up on Surgery and Infectious Diseases . 4. surgical report. 5. Imaging has been reviewed. 6. Closely monitor. Thank you, Dr. Teo Love, for this kind referral. Please do not hesitate to contact me with any further questions. Andrew Mendez M.D. DR: Kade JOB#: [id number] CC:
--- NOTE | 2016-07-27 11:41 | General Progress Note ---
Assessment/Plan Problem List: (1) Ileus ICD Codes: K56.7 - Ileus, unspecified SNOMED: 921986441 (2) Sepsis ICD Codes: A41.9 - Sepsis, unspecified organism SNOMED: 88629308 (3) Abdominal pain ICD Codes: R10.9 - Unspecified abdominal pain SNOMED: 27778992 (4) SBO (small bowel obstruction) ICD Codes: K56.69 - Other intestinal obstruction SNOMED: 488555588 (5) Abdominal gas pain ICD Codes: R14.1 - Gas pain SNOMED: 51611602 (6) Enteritis ICD Codes: K52.9 - Noninfective gastroenteritis and colitis, unspecified SNOMED: 56602823 Status: progressing Assessment/Plan sbo s/p exploratory lap by dr yayo atkinson closely r/o sepsis Subjective ROS Limited/Unobtainable: Yes Allergies: Coded Allergies: No Known Allergies (Unverified , 07/26/16) Objective Last 24 Hour Vital Signs Date Time Temp Pulse Resp B/P Pulse Ox O2 Delivery O2 Flow Rate FiO2 07/27/16 09:09 76 22 99 07/27/16 08:00 97.3 123 20 120/58 97 Room Air 07/27/16 04:00 97.0 110 20 118/86 96 Room Air 07/27/16 00:00 96.8 100 16 121/89 95 Room Air 07/26/16 19:15 98.0 93 16 164/105 100 Nasal Cannula 3.0 07/26/16 19:00 88 18 152/110 100 Nasal Cannula 3.0 07/26/16 18:45 92 16 166/106 100 Nasal Cannula 3.0 07/26/16 18:45 97.1 07/26/16 18:28 98 15 167/104 100 Nasal Cannula 3.0 07/26/16 18:15 97 17 181/110 100 Nasal Cannula 3.0 07/26/16 18:00 92 15 165/102 100 Simple Mask 6.0 07/26/16 17:51 102 12 100 07/26/16 17:50 91 10 168/108 100 Simple Mask 6.0 07/26/16 17:45 100 20 184/106 100 Simple Mask 6.0 07/26/16 17:39 97.4 102 12 172/111 100 Simple Mask 6.0 07/26/16 12:00 99.0 97 20 152/102 99 Room Air Intake and Output 07/26/16 07/27/16 19:00 07:00 Intake Total 1025 ml Output Total 650 ml Balance 375 ml Intake Oral 0 ml IV Total 1025 ml Output Urine Total 650 ml # Voids 3 Laboratory Tests 07/27/16 06:10: White Blood Count 19.1H, Red Blood Count 5.87, Hemoglobin 17.9, Hematocrit 56.0H , Mean Corpuscular Volume 95, Mean Corpuscular Hemoglobin 30.5, Mean Corpuscular Hemoglobin Concent 32.0, Red Cell Distribution Width 13.3, Platelet Count 322, Mean Platelet Volume 7.3, Neutrophils (%) (Auto) , Lymphocytes (%) ( Auto) , Monocytes (%) (Auto) , Eosinophils (%) (Auto) , Basophils (%) (Auto) , Differential Total Cells Counted 100, Neutrophils % (Manual) 78H, Lymphocytes % (Manual) 6L, Monocytes % (Manual) 14H, Eosinophils % (Manual) 0, Basophils % ( Manual) 0, Band Neutrophils 2, Platelet Estimate Adequate, Platelet Morphology Normal, Red Blood Cell Morphology Normal, Sodium Level 139, Potassium Level 5.4H , Chloride Level 99, Carbon Dioxide Level 14L, Anion Gap 26H, Blood Urea Nitrogen 28H, Creatinine 3.0#H, Estimat Glomerular Filtration Rate 21.1, Glucose Level 266H, Lactic Acid Level 8.00H, Calcium Level 8.3L, Lipase 22 07/27/16 09:30: Lactic Acid Level 6.70H Height (Feet): 5 Height (Inches): 6.00 Weight (Pounds): 162 EENT: PERRL/EOMI Cardiovascular: normal rate Respiratory/Chest: lungs clear Teo Love MD Jul 27, 2016 11:41
[2016-07-27] MEDS ORDERED: D5NS 1,000 ML IV SCH (14:15)
--- NOTE | 2016-07-27 14:22 | Consultation ---
Consult Note Consult Note asked to evaluate at the request of Dr syed for renal failure- admitted through ER yesterday- Had laparascopy and lysis of adhesions- at ER: Chief Complaint: Abdominal Pain HPI Patient presents with diffuse abdominal pain Started approximately 8 hours prior to arrival patient reports eating a heavy meal with a lot of meat fish soon after becoming nauseated and felt very heavy Patient's pain is 8/10 diffuse He has had vomiting Denies any diarrhea He feels warm but denies any obvious fever Denies any chest pain or shortness of breath denies any rash today Cr high- BP low, and leukocytosis Toxic appearance Assessment/Plan Status; Septic Shock leading to acute renal failure- Abdominal Surgery 07/26/16 Plan; Fluid challenge- Antibiotics- Protonix IV REBECCA SCHULTE Jul 27, 2016 14:22
[2016-07-27 14:52] LABS: ABG BASE EXCESS -8.9; ABG PCO2 35.3 mmHg (35.0-45.0)
--- NOTE | 2016-07-27 16:53 | Infectious Diseases Prog Note ---
Assessment/Plan Problems: (1) Septic shock Assessment & Plan: not responding to IVF, received vancomycin by [employer] worker , will start clindamycin to avoid nephrotoxicity , continue zosyn for now, consider pressors to keep SBP>100, monitor in ICU, will order blood culture (2) SBO (small bowel obstruction) Assessment & Plan: S/P laparoscopic laparotomy , monitor lactic acid, and lipase , continue IVF, and pain management , general surgery is following (3) Abdominal pain Assessment & Plan: continue pain management, surgery is following (4) MIGNON (acute kidney injury) Assessment & Plan: due to sepsis and hypotension, continue IVF, give boluses, consider pressors to keep SBP >100, consult renal Subjective Constitutional: Reports: no symptoms HEENT: Reports: no symptoms Respiratory: Reports: no symptoms Cardiovascular: Reports: no symptoms Gastrointestinal/Abdominal: Reports: bloating, nausea Genitourinary: Reports: no symptoms Neurologic: Reports: no symptoms Psychiatric: Reports: no symptoms Skin: Reports: no symptoms Endocrine: Reports: no symptoms Allergies: Coded Allergies: No Known Allergies (Unverified , 07/26/16) Subjective denied any significant abdominal pain, no bowel movement , no fever or chills, no SOB Objective Vital Signs Last 24 Hour Vital Signs Date Time Temp Pulse Resp B/P Pulse Ox O2 Delivery O2 Flow Rate FiO2 07/27/16 16:00 97.3 117 20 94/53 98 Room Air 07/27/16 15:22 97.9 07/27/16 15:00 120 21 86/43 96 Room Air 07/27/16 14:00 113 16 87/62 98 Room Air 07/27/16 13:00 117 17 93/64 98 Room Air 07/27/16 12:57 97.9 118 17 89/59 97 Room Air 07/27/16 09:09 76 22 99 07/27/16 08:00 97.3 123 20 120/58 97 Room Air 07/27/16 04:00 97.0 110 20 118/86 96 Room Air 07/27/16 00:00 96.8 100 16 121/89 95 Room Air 07/26/16 19:15 98.0 93 16 164/105 100 Nasal Cannula 3.0 07/26/16 19:00 88 18 152/110 100 Nasal Cannula 3.0 07/26/16 18:45 92 16 166/106 100 Nasal Cannula 3.0 07/26/16 18:45 97.1 07/26/16 18:28 98 15 167/104 100 Nasal Cannula 3.0 07/26/16 18:15 97 17 181/110 100 Nasal Cannula 3.0 07/26/16 18:00 92 15 165/102 100 Simple Mask 6.0 07/26/16 17:51 102 12 100 07/26/16 17:50 91 10 168/108 100 Simple Mask 6.0 07/26/16 17:45 100 20 184/106 100 Simple Mask 6.0 07/26/16 17:39 97.4 102 12 172/111 100 Simple Mask 6.0 Height (Feet): 5 Height (Inches): 6.00 Weight (Pounds): 162 General Appearance: WD/WN, no acute distress HEENT: normocephalic, atraumatic, mucous membranes moist Respiratory/Chest: chest wall non-tender, normal breath sounds, no respiratory distress, no accessory muscle use, decreased breath sounds Cardiovascular: normal peripheral pulses, regular rhythm, no gallop/murmur, no JVD, tachycardia Abdomen: soft, non tender, no organomegaly, no mass, no scars, hypoactive bowel sounds, distended, tender, other - surgical scars are clean Extremities: no cyanosis, no clubbing Skin: no rash, no lesions Laboratory Tests Test 07/27/16 06:10 07/27/16 09:30 07/27/16 14:39 White Blood Count 19.1 K/UL (4.8-10.8) H Red Blood Count 5.87 M/UL (4.70-6.10) Hemoglobin 17.9 G/DL (14.2-18.0) Hematocrit 56.0 % (42.0-52.0) H Mean Corpuscular Volume 95 FL (80-99) Mean Corpuscular Hemoglobin 30.5 PG (27.0-31.0) Mean Corpuscular Hemoglobin Concent 32.0 G/DL (32.0-36.0) Red Cell Distribution Width 13.3 % (11.6-14.8) Platelet Count 322 K/UL (150-450) Mean Platelet Volume 7.3 FL (6.5-10.1) Neutrophils (%) (Auto) % (45.0-75.0) Lymphocytes (%) (Auto) % (20.0-45.0) Monocytes (%) (Auto) % (1.0-10.0) Eosinophils (%) (Auto) % (0.0-3.0) Basophils (%) (Auto) % (0.0-2.0) Differential Total Cells Counted 100 Neutrophils % (Manual) 78 % (45-75) H Lymphocytes % (Manual) 6 % (20-45) L Monocytes % (Manual) 14 % (1-10) H Eosinophils % (Manual) 0 % (0-3) Basophils % (Manual) 0 % (0-2) Band Neutrophils 2 % (0-8) Platelet Estimate Adequate Platelet Morphology Normal Red Blood Cell Morphology Normal Sodium Level 139 mEQ/L (135-145) Potassium Level 5.4 mEQ/L (3.4-4.9) H Chloride Level 99 mEQ/L (98-107) Carbon Dioxide Level 14 mEQ/L (20-30) L Anion Gap 26 (5-15) H Blood Urea Nitrogen 28 mg/dL (7-23) H Creatinine 3.0 mg/dL (0.7-1.2) #H Estimat Glomerular Filtration Rate 21.1 mL/min (>60) Glucose Level 266 mg/dL (74-106) H Lactic Acid Level 8.00 mmol/L (0.66-2.22) H 6.70 mmol/L (0.66-2.22) H Calcium Level 8.3 mg/dL (8.6-10.2) L Lipase 22 U/L (< 60) Arterial Blood pH 7.290 (7.350-7.450) Arterial Blood Partial Pressure CO2 35.3 mmHg (35.0-45.0) Arterial Blood Partial Pressure O2 78.0 mmHg (75.0-100.0) Arterial Blood HCO3 16.7 mmol/L (22.0-26.0) L Arterial Blood Oxygen Saturation 94.0 % (92.0-98.0) Arterial Blood Base Excess -8.9 Oliver Test Current Medications Medications (Trade) Dose Ordered Sig/Arti Route PRN Reason Start Time Stop Time Status Last Admin Dose Admin Acetaminophen 650 mg 650 mg Q4H PRN RECTAL FEVER 07/26/16 17:45 08/25/16 17:44 Dextrose/Sodium Chloride (D5ns) 1,000 ml @ 200 mls/hr Q5H IV 07/27/16 16:30 08/26/16 16:29 Enoxaparin Sodium (Lovenox) 40 mg DAILY SUBQ 07/27/16 09:00 08/26/16 08:59 07/27/16 09:26 Fentanyl Citrate (Sublimaze 100 mcg/2 mL) 25 mcg Q10M PRN IV Moderate Pain (Pain Scale 4-6) 07/26/16 17:00 07/27/16 20:30 Hydromorphone HCl (Dilaudid) 0.5 mg Q3H PRN IVP Pain Score 1-3 07/26/16 17:45 08/02/16 17:44 Hydromorphone HCl (Dilaudid) 1 mg Q3H PRN IVP pain score 4-6 07/26/16 17:45 08/02/16 17:44 07/27/16 14:52 Hydromorphone HCl (Dilaudid) 2 mg Q3H PRN IVP pain score 7-10 07/26/16 17:45 08/02/16 17:44 07/27/16 09:53 Metoclopramide HCl (Reglan) 10 mg Q6H PRN IVP Nausea & Vomiting 07/26/16 17:45 08/25/16 17:44 Pantoprazole 40 mg 40 mg Q12HR IVP 07/27/16 21:00 08/26/16 20:59 Piperacillin Sod/ Tazobactam Sod/ Dextrose (Zosyn/D5W 100ml) 100 ml @ 25 mls/hr EVERY 8 HOURS IVPB 07/26/16 22:00 08/02/16 21:59 07/27/16 14:12 Vancomycin HCl 1 gm/Dextrose 250 ml @ 167 mls/hr ONCE ONCE IVPB 07/27/16 15:30 07/27/16 16:59 07/27/16 16:09 Piyush Harris M.D. Jul 27, 2016 16:53
[2016-07-27] MEDS: D5NS 1,000 ML IV SCH ×3 (16:55→23:55)
--- NOTE | 2016-07-27 17:58 | General Surgery Progress Note ---
General Surgery-Progress Note Subjective Symptoms: other - bp has dropped he is tachycardic lactic acid is high urine out put very low Objective Last 24 Hour Vital Signs Date Time Temp Pulse Resp B/P Pulse Ox O2 Delivery O2 Flow Rate FiO2 07/27/16 17:00 113 20 81/57 100 Room Air 07/27/16 16:00 118 07/27/16 16:00 97.3 117 20 94/53 98 Room Air 07/27/16 15:22 97.9 07/27/16 15:00 120 21 86/43 96 Room Air 07/27/16 14:00 113 16 87/62 98 Room Air 07/27/16 13:00 117 17 93/64 98 Room Air 07/27/16 12:57 97.9 118 17 89/59 97 Room Air 07/27/16 09:09 76 22 99 07/27/16 08:00 97.3 123 20 120/58 97 Room Air 07/27/16 04:00 97.0 110 20 118/86 96 Room Air 07/27/16 00:00 96.8 100 16 121/89 95 Room Air 07/26/16 19:15 98.0 93 16 164/105 100 Nasal Cannula 3.0 07/26/16 19:00 88 18 152/110 100 Nasal Cannula 3.0 07/26/16 18:45 92 16 166/106 100 Nasal Cannula 3.0 07/26/16 18:45 97.1 07/26/16 18:28 98 15 167/104 100 Nasal Cannula 3.0 07/26/16 18:15 97 17 181/110 100 Nasal Cannula 3.0 07/26/16 18:00 92 15 165/102 100 Simple Mask 6.0 07/26/16 17:51 102 12 100 I&O Intake and Output 07/26/16 07/27/16 19:00 07:00 Intake Total 1025 ml Output Total 650 ml Balance 375 ml Intake Oral 0 ml IV Total 1025 ml Output Urine Total 650 ml # Voids 3 Dressing: dry Drains: none Respiratory: clear Abdomen: distended, tenderness, absent bowel sounds Extremities: no tenderness Laboratory Tests Test 07/27/16 06:10 07/27/16 09:30 07/27/16 14:39 White Blood Count 19.1 K/UL (4.8-10.8) H Red Blood Count 5.87 M/UL (4.70-6.10) Hemoglobin 17.9 G/DL (14.2-18.0) Hematocrit 56.0 % (42.0-52.0) H Mean Corpuscular Volume 95 FL (80-99) Mean Corpuscular Hemoglobin 30.5 PG (27.0-31.0) Mean Corpuscular Hemoglobin Concent 32.0 G/DL (32.0-36.0) Red Cell Distribution Width 13.3 % (11.6-14.8) Platelet Count 322 K/UL (150-450) Mean Platelet Volume 7.3 FL (6.5-10.1) Neutrophils (%) (Auto) % (45.0-75.0) Lymphocytes (%) (Auto) % (20.0-45.0) Monocytes (%) (Auto) % (1.0-10.0) Eosinophils (%) (Auto) % (0.0-3.0) Basophils (%) (Auto) % (0.0-2.0) Differential Total Cells Counted 100 Neutrophils % (Manual) 78 % (45-75) H Lymphocytes % (Manual) 6 % (20-45) L Monocytes % (Manual) 14 % (1-10) H Eosinophils % (Manual) 0 % (0-3) Basophils % (Manual) 0 % (0-2) Band Neutrophils 2 % (0-8) Platelet Estimate Adequate Platelet Morphology Normal Red Blood Cell Morphology Normal Sodium Level 139 mEQ/L (135-145) Potassium Level 5.4 mEQ/L (3.4-4.9) H Chloride Level 99 mEQ/L (98-107) Carbon Dioxide Level 14 mEQ/L (20-30) L Anion Gap 26 (5-15) H Blood Urea Nitrogen 28 mg/dL (7-23) H Creatinine 3.0 mg/dL (0.7-1.2) #H Estimat Glomerular Filtration Rate 21.1 mL/min (>60) Glucose Level 266 mg/dL (74-106) H Lactic Acid Level 8.00 mmol/L (0.66-2.22) H 6.70 mmol/L (0.66-2.22) H Calcium Level 8.3 mg/dL (8.6-10.2) L Lipase 22 U/L (< 60) Arterial Blood pH 7.290 (7.350-7.450) Arterial Blood Partial Pressure CO2 35.3 mmHg (35.0-45.0) Arterial Blood Partial Pressure O2 78.0 mmHg (75.0-100.0) Arterial Blood HCO3 16.7 mmol/L (22.0-26.0) L Arterial Blood Oxygen Saturation 94.0 % (92.0-98.0) Arterial Blood Base Excess -8.9 Oliver Test Assessment Post-op Diagnosis valvolus of small bowel Plan Additional Comments possible bowel necrosis EDWIN NOGUEIRA Jul 27, 2016 17:58
--- NOTE | 2016-07-27 18:04 | General Progress Note ---
Assessment/Plan Assessment/Plan ASSESSMENT: 1. Leukocytosis. Likely 2/2 unferlying infection 2. Small bowel obstruction. status post exploratory laparotomy. 3. Sepsis, likely contributing to leukocytosis. 4. Abdominal pain due to small bowel obstruction. Surgery is on board following closely. RECOMMENDATIONS: 1. Peripheral smear has been ordered. 2. Continue to monitor CBC. 3. Follow up on Surgery and Infectious Diseases recs 4. Imaging has been reviewed. 5. Closely monitor. 6. DW staff Thank you, Andrew Mendez MD Subjective Constitutional: Reports: no symptoms HEENT: Reports: no symptoms Cardiovascular: Reports: no symptoms Respiratory: Reports: no symptoms Gastrointestinal/Abdominal: Reports: poor appetite Genitourinary: Reports: no symptoms 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: Reports: no symptoms Endocrine: Reports: no symptoms Hematologic/Lymphatic: Reports: anemia Allergies: Coded Allergies: No Known Allergies (Unverified , 07/26/16) Subjective stable, no bleeding reported, no fevers, no chills Objective Last 24 Hour Vital Signs Date Time Temp Pulse Resp B/P Pulse Ox O2 Delivery O2 Flow Rate FiO2 07/27/16 17:00 113 20 81/57 100 Room Air 07/27/16 16:00 118 07/27/16 16:00 97.3 117 20 94/53 98 Room Air 07/27/16 15:22 97.9 07/27/16 15:00 120 21 86/43 96 Room Air 07/27/16 14:00 113 16 87/62 98 Room Air 07/27/16 13:00 117 17 93/64 98 Room Air 07/27/16 12:57 97.9 118 17 89/59 97 Room Air 07/27/16 09:09 76 22 99 07/27/16 08:00 97.3 123 20 120/58 97 Room Air 07/27/16 04:00 97.0 110 20 118/86 96 Room Air 07/27/16 00:00 96.8 100 16 121/89 95 Room Air 07/26/16 19:15 98.0 93 16 164/105 100 Nasal Cannula 3.0 07/26/16 19:00 88 18 152/110 100 Nasal Cannula 3.0 07/26/16 18:45 92 16 166/106 100 Nasal Cannula 3.0 07/26/16 18:45 97.1 07/26/16 18:28 98 15 167/104 100 Nasal Cannula 3.0 07/26/16 18:15 97 17 181/110 100 Nasal Cannula 3.0 Intake and Output 07/26/16 07/27/16 18:59 06:59 Intake Total 1025 ml Output Total 650 ml Balance 375 ml Intake Oral 0 ml IV Total 1025 ml Output Urine Total 650 ml # Voids 3 Laboratory Tests 07/27/16 06:10: White Blood Count 19.1H, Red Blood Count 5.87, Hemoglobin 17.9, Hematocrit 56.0H , Mean Corpuscular Volume 95, Mean Corpuscular Hemoglobin 30.5, Mean Corpuscular Hemoglobin Concent 32.0, Red Cell Distribution Width 13.3, Platelet Count 322, Mean Platelet Volume 7.3, Neutrophils (%) (Auto) , Lymphocytes (%) ( Auto) , Monocytes (%) (Auto) , Eosinophils (%) (Auto) , Basophils (%) (Auto) , Differential Total Cells Counted 100, Neutrophils % (Manual) 78H, Lymphocytes % (Manual) 6L, Monocytes % (Manual) 14H, Eosinophils % (Manual) 0, Basophils % ( Manual) 0, Band Neutrophils 2, Platelet Estimate Adequate, Platelet Morphology Normal, Red Blood Cell Morphology Normal, Sodium Level 139, Potassium Level 5.4H , Chloride Level 99, Carbon Dioxide Level 14L, Anion Gap 26H, Blood Urea Nitrogen 28H, Creatinine 3.0#H, Estimat Glomerular Filtration Rate 21.1, Glucose Level 266H, Lactic Acid Level 8.00H, Calcium Level 8.3L, Lipase 22 07/27/16 09:30: Lactic Acid Level 6.70H 07/27/16 14:39: Arterial Blood pH 7.290L, Arterial Blood Partial Pressure CO2 35.3, Arterial Blood Partial Pressure O2 78.0, Arterial Blood HCO3 16.7L, Arterial Blood Oxygen Saturation 94.0, Arterial Blood Base Excess -8.9, Oliver Test Height (Feet): 5 Height (Inches): 6.00 Weight (Pounds): 162 General Appearance: no apparent distress EENT: TMs normal Neck: supple Cardiovascular: regular rhythm Respiratory/Chest: no respiratory distress Abdomen: soft Extremities: normal range of motion Edema: mild edema Neurologic: alert Skin: warm/dry Andrew Mendez Jul 27, 2016 18:04
--- NOTE | 2016-07-27 18:10 | Cardiac Electrophysiology PN ---
Subjective Subjective [id number]. Septic shock. Start Levophed. IV bolus 2 liter and D51/2 NS at 200cc/ hr. 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 Objective Last 24 Hour Vital Signs Date Time Temp Pulse Resp B/P Pulse Ox O2 Delivery O2 Flow Rate FiO2 07/27/16 17:00 113 20 81/57 100 Room Air 07/27/16 16:00 118 07/27/16 16:00 97.3 117 20 94/53 98 Room Air 07/27/16 15:22 97.9 07/27/16 15:00 120 21 86/43 96 Room Air 07/27/16 14:00 113 16 87/62 98 Room Air 07/27/16 13:00 117 17 93/64 98 Room Air 07/27/16 12:57 97.9 118 17 89/59 97 Room Air 07/27/16 09:09 76 22 99 07/27/16 08:00 97.3 123 20 120/58 97 Room Air 07/27/16 04:00 97.0 110 20 118/86 96 Room Air 07/27/16 00:00 96.8 100 16 121/89 95 Room Air 07/26/16 19:15 98.0 93 16 164/105 100 Nasal Cannula 3.0 07/26/16 19:00 88 18 152/110 100 Nasal Cannula 3.0 07/26/16 18:45 92 16 166/106 100 Nasal Cannula 3.0 07/26/16 18:45 97.1 07/26/16 18:28 98 15 167/104 100 Nasal Cannula 3.0 07/26/16 18:15 97 17 181/110 100 Nasal Cannula 3.0 Intake and Output 07/26/16 07/27/16 19:00 07:00 Intake Total 1025 ml Output Total 650 ml Balance 375 ml Intake Oral 0 ml IV Total 1025 ml Output Urine Total 650 ml # Voids 3 Laboratory Tests Test 07/27/16 06:10 07/27/16 09:30 07/27/16 14:39 White Blood Count 19.1 K/UL (4.8-10.8) H Red Blood Count 5.87 M/UL (4.70-6.10) Hemoglobin 17.9 G/DL (14.2-18.0) Hematocrit 56.0 % (42.0-52.0) H Mean Corpuscular Volume 95 FL (80-99) Mean Corpuscular Hemoglobin 30.5 PG (27.0-31.0) Mean Corpuscular Hemoglobin Concent 32.0 G/DL (32.0-36.0) Red Cell Distribution Width 13.3 % (11.6-14.8) Platelet Count 322 K/UL (150-450) Mean Platelet Volume 7.3 FL (6.5-10.1) Neutrophils (%) (Auto) % (45.0-75.0) Lymphocytes (%) (Auto) % (20.0-45.0) Monocytes (%) (Auto) % (1.0-10.0) Eosinophils (%) (Auto) % (0.0-3.0) Basophils (%) (Auto) % (0.0-2.0) Differential Total Cells Counted 100 Neutrophils % (Manual) 78 % (45-75) H Lymphocytes % (Manual) 6 % (20-45) L Monocytes % (Manual) 14 % (1-10) H Eosinophils % (Manual) 0 % (0-3) Basophils % (Manual) 0 % (0-2) Band Neutrophils 2 % (0-8) Platelet Estimate Adequate Platelet Morphology Normal Red Blood Cell Morphology Normal Sodium Level 139 mEQ/L (135-145) Potassium Level 5.4 mEQ/L (3.4-4.9) H Chloride Level 99 mEQ/L (98-107) Carbon Dioxide Level 14 mEQ/L (20-30) L Anion Gap 26 (5-15) H Blood Urea Nitrogen 28 mg/dL (7-23) H Creatinine 3.0 mg/dL (0.7-1.2) #H Estimat Glomerular Filtration Rate 21.1 mL/min (>60) Glucose Level 266 mg/dL (74-106) H Lactic Acid Level 8.00 mmol/L (0.66-2.22) H 6.70 mmol/L (0.66-2.22) H Calcium Level 8.3 mg/dL (8.6-10.2) L Lipase 22 U/L (< 60) Arterial Blood pH 7.290 (7.350-7.450) Arterial Blood Partial Pressure CO2 35.3 mmHg (35.0-45.0) Arterial Blood Partial Pressure O2 78.0 mmHg (75.0-100.0) Arterial Blood HCO3 16.7 mmol/L (22.0-26.0) L Arterial Blood Oxygen Saturation 94.0 % (92.0-98.0) Arterial Blood Base Excess -8.9 Oliver Test [facility] [place] Jul 27, 2016 18:10
[2016-07-27 19:12] LABS: MEAN CORPUSCULAR HGB CONC 33.4 G/DL (32.0-36.0); MEAN CORPUSCULAR VOLUME 93 FL (80-99); MEAN PLATELET VOLUME 7.6 FL (6.5-10.1); PLATELET COUNT 219 K/UL (150-450); RED BLOOD COUNT 4.57 M/UL (4.70-6.10); RED CELL DISTRIBUTION WIDTH 12.7 % (11.6-14.8)
[2016-07-27 19:27] LABS: CALCIUM 6.9 mg/dL (8.6-10.2); CREATININE 4.4 mg/dL (0.7-1.2); GLOMERULAR FILTRATION RATE 13.6 mL/min (>60); POTASSIUM 5.2 mEQ/L (3.4-4.9)
[2016-07-27 19:31] LABS: REFLEX LACTIC ACID YES OR NO YES
--- NOTE | 2016-07-27 19:39 | Pulmonolgy Critical Care Note ---
Critical Care - Asmt/Plan Problems: (1) Septic shock (2) MIGNON (acute kidney injury) (3) SBO (small bowel obstruction) Respiratory: monitor respiratory rate, adjust FIO2 Cardiac: continue to monitor HR/BP Renal: F/U I&O, keep IV fluid, other - NS boluses multple times until urine output peaks up. 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 Discussed with: nurses, consultants, outsole caser, family member Critical Care - Objective Last 24 Hour Vital Signs Date Time Temp Pulse Resp B/P Pulse Ox O2 Delivery O2 Flow Rate FiO2 07/27/16 19:34 123 20 121/53 98 Room Air 07/27/16 19:00 120 20 110/81 99 Room Air 07/27/16 18:00 115 20 103/75 97 Room Air 07/27/16 17:00 113 20 81/57 100 Room Air 07/27/16 16:00 118 07/27/16 16:00 97.3 117 20 94/53 98 Room Air 07/27/16 15:22 97.9 07/27/16 15:00 120 21 86/43 96 Room Air 07/27/16 14:00 113 16 87/62 98 Room Air 07/27/16 13:00 117 17 93/64 98 Room Air 07/27/16 12:57 97.9 118 17 89/59 97 Room Air 07/27/16 09:09 76 22 99 07/27/16 08:00 97.3 123 20 120/58 97 Room Air 07/27/16 04:00 97.0 110 20 118/86 96 Room Air 07/27/16 00:00 96.8 100 16 121/89 95 Room Air Status: awake Condition: critical, grave Neck: full ROM Lungs: clear Heart: HR/BP stable, HR/BP unstable Abdomen: soft, non-tender, active bowel sounds Extremities: no C/C/E, edema Critical Care - Subjective ROS Limited/Unobtainable: Yes ICU Day: 1 Interval Events: Patient had lap coli earlier and developed shock and MOF and transferred to ICU. Pt is awake and anxious, tachycardic with zero urine output. EKG Rhythm: Sinus Rhythm Fluids: NS 100 cc.hour I&O: Intake and Output 07/26/16 07/27/16 19:00 07:00 Intake Total 1025 ml Output Total 650 ml Balance 375 ml Intake Oral 0 ml IV Total 1025 ml Output Urine Total 650 ml # Voids 3 Labs: Laboratory Tests Test 07/27/16 14:39 07/27/16 19:00 07/27/16 23:50 07/28/16 05:00 Arterial Blood pH 7.290 (7.350-7.450) Arterial Blood Partial Pressure CO2 35.3 mmHg (35.0-45.0) Arterial Blood Partial Pressure O2 78.0 mmHg (75.0-100.0) Arterial Blood HCO3 16.7 mmol/L (22.0-26.0) L Arterial Blood Oxygen Saturation 94.0 % (92.0-98.0) Arterial Blood Base Excess -8.9 Oliver Test White Blood Count 22.2 K/UL (4.8-10.8) *H 9.9 K/UL (4.8-10.8) # 9.0 K/UL (4.8-10.8) Red Blood Count 4.57 M/UL (4.70-6.10) L 3.90 M/UL (4.70-6.10) L 3.54 M/UL (4.70-6.10) L Hemoglobin 14.2 G/DL (14.2-18.0) 12.2 G/DL (14.2-18.0) L 10.9 G/DL (14.2-18.0) L Hematocrit 42.4 % (42.0-52.0) 35.6 % (42.0-52.0) L 32.8 % (42.0-52.0) L Mean Corpuscular Volume 93 FL (80-99) 91 FL (80-99) 92 FL (80-99) Mean Corpuscular Hemoglobin 31.0 PG (27.0-31.0) 31.3 PG (27.0-31.0) H 30.8 PG (27.0-31.0) Mean Corpuscular Hemoglobin Concent 33.4 G/DL (32.0-36.0) 34.3 G/DL (32.0-36.0) 33.3 G/DL (32.0-36.0) Red Cell Distribution Width 12.7 % (11.6-14.8) 12.6 % (11.6-14.8) 12.4 % (11.6-14.8) Platelet Count 219 K/UL (150-450) 161 K/UL (150-450) 149 K/UL (150-450) L Mean Platelet Volume 7.6 FL (6.5-10.1) 8.6 FL (6.5-10.1) 8.2 FL (6.5-10.1) Neutrophils (%) (Auto) % (45.0-75.0) 81.5 % (45.0-75.0) H 81.3 % (45.0-75.0) H Lymphocytes (%) (Auto) % (20.0-45.0) 11.3 % (20.0-45.0) L 8.8 % (20.0-45.0) L Monocytes (%) (Auto) % (1.0-10.0) 6.8 % (1.0-10.0) 9.3 % (1.0-10.0) Eosinophils (%) (Auto) % (0.0-3.0) 0.0 % (0.0-3.0) 0.0 % (0.0-3.0) Basophils (%) (Auto) % (0.0-2.0) 0.4 % (0.0-2.0) 0.6 % (0.0-2.0) Differential Total Cells Counted 100 Neutrophils % (Manual) 73 % (45-75) Lymphocytes % (Manual) 9 % (20-45) L Monocytes % (Manual) 11 % (1-10) H Eosinophils % (Manual) 1 % (0-3) Basophils % (Manual) 0 % (0-2) Band Neutrophils 6 % (0-8) Platelet Estimate Adequate Platelet Morphology Normal Red Blood Cell Morphology Normal Sodium Level 136 mEQ/L (135-145) 138 mEQ/L (135-145) 140 mEQ/L (135-145) Potassium Level 5.2 mEQ/L (3.4-4.9) H 6.1 mEQ/L (3.4-4.9) *H 5.0 mEQ/L (3.4-4.9) H Chloride Level 100 mEQ/L (98-107) 101 mEQ/L (98-107) 104 mEQ/L (98-107) Carbon Dioxide Level 15 mEQ/L (20-30) L 17 mEQ/L (20-30) L 19 mEQ/L (20-30) L Anion Gap 21 (5-15) H 20 (5-15) H 17 (5-15) H Blood Urea Nitrogen 40 mg/dL (7-23) H 45 mg/dL (7-23) H 48 mg/dL (7-23) H Creatinine 4.4 mg/dL (0.7-1.2) H 4.3 mg/dL (0.7-1.2) H 4.4 mg/dL (0.7-1.2) H Estimat Glomerular Filtration Rate 13.6 mL/min (>60) 13.9 mL/min (>60) 13.6 mL/min (>60) Glucose Level 178 mg/dL (74-106) H 167 mg/dL (74-106) H 211 mg/dL (74-106) H Osmolality Pending Lactic Acid Level 2.90 mmol/L (0.66-2.22) H 2.70 mmol/L (0.66-2.22) H 2.60 mmol/L (0.66-2.22) H Uric Acid 7.7 mg/dL (3.0-7.5) H 7.1 mg/dL (3.0-7.5) Calcium Level 6.9 mg/dL (8.6-10.2) L 6.9 mg/dL (8.6-10.2) L 7.1 mg/dL (8.6-10.2) L Phosphorus Level 6.7 mg/dL (2.5-4.8) H 5.1 mg/dL (2.5-4.8) H Magnesium Level 1.6 mg/dL (1.7-2.5) L 1.6 mg/dL (1.7-2.5) L Total Creatine Kinase 604 U/L (38-174) H 1180 U/L (38-174) H Free Thyroxine 1.69 ng/dL (0.86-1.85) 1.41 ng/dL (0.86-1.85) Cortisol Pending Total Bilirubin 0.6 mg/dL (0.0-1.2) 0.5 mg/dL (0.0-1.2) Aspartate Amino Transf (AST/SGOT) 780 U/L (5-40) H 713 U/L (5-40) H Alanine Aminotransferase (ALT/SGPT) 633 U/L (3-41) H 541 U/L (3-41) H Alkaline Phosphatase 36 U/L (40-129) L 35 U/L (40-129) L Total Protein 4.6 g/dL (6.6-8.7) L 4.4 g/dL (6.6-8.7) L Albumin 2.8 g/dL (3.5-5.2) L 2.5 g/dL (3.5-5.2) L Globulin 1.8 g/dL 1.9 g/dL Albumin/Globulin Ratio 1.5 (1.0-2.7) 1.3 (1.0-2.7) Thyroid Stimulating Hormone (TSH) 1.070 uIU/mL (0.300-4.500) 0.590 uIU/mL (0.300-4.500) Free Triiodothyronine 1.6 pg/mL (2.3-4.2) L Hemoglobin A1c 5.6 % (< 6.0) Gamma Glutamyl Transpeptidase 26 U/L (8-61) Troponin I 1.35 ng/mL (<=0.30) *H C-Reactive Protein, Quantitative 12.6 mg/dL (< 0.5) H Pro-B-Type Natriuretic Peptide 1040 pg/mL (0-125) H Triglycerides Level 89 mg/dL (< 150) Cholesterol Level 95 mg/dL (< 200) LDL Cholesterol 46 mg/dL (60-99) L HDL Cholesterol 31 mg/dL (> 60) Cholesterol/HDL Ratio 3.1 (3.3-4.4) L Test 07/28/16 07:20 07/28/16 09:59 Urine Color Pale yellow Urine Appearance Slightly cloudy Urine pH 5 (4.5-8.0) Urine Specific [place] 1.015 (1.005-1.035) Urine Protein 3+ (NEGATIVE) H Urine Glucose (UA) 1+ (NEGATIVE) H Urine Ketones Negative (NEGATIVE) Urine Occult Blood 5+ (NEGATIVE) H Urine Nitrite Negative (NEGATIVE) Urine Bilirubin Negative (NEGATIVE) Urine Urobilinogen Normal MG/DL (0.0-1.0) Urine Leukocyte Esterase Negative (NEGATIVE) Urine RBC 2-4 /HPF (0 - 0) H Urine WBC 0-2 /HPF (0 - 0) Urine Squamous Epithelial Cells Occasional /LPF Urine Amorphous Sediment Few /LPF (NONE) H Urine Bacteria Few /HPF (NONE) Urine Eosinophils None seen Urine Osmolality Pending Urine Random Sodium 50 mmol/L Urine Random Chloride 48 mmol/L Urine Potassium Timed 43 mmol/L Arterial Blood pH 7.417 (7.350-7.450) Arterial Blood Partial Pressure CO2 30.7 mmHg (35.0-45.0) L Arterial Blood Partial Pressure O2 83.5 mmHg (75.0-100.0) Arterial Blood HCO3 19.3 mmol/L (22.0-26.0) L Arterial Blood Oxygen Saturation 95.9 % (92.0-98.0) Arterial Blood Base Excess -4.3 Oliver Test Positive MAIKEL ESPINOSA Jul 27, 2016 19:39
[2016-07-27 19:57] LABS: WHITE BLOOD COUNT 22.2 K/UL (4.8-10.8)
[2016-07-27] MEDS ORDERED: Propofol 10mg/ml 20ml IV ONE (20:00)
[2016-07-27] MEDS: Clindamycin 600mg 50 ML IV SCH (20:00)
[2016-07-27] MEDS ORDERED: Lidocaine 1% MPF 10mg/ml 5ml ONE (20:00)
[2016-07-27] MEDS ORDERED: Metoprolol 5mg/5ml Inj ONE (20:00)
[2016-07-27] MEDS ORDERED: Zemuron 50mg/5ml Inj IV ONE (20:00)
[2016-07-27] MEDS ORDERED: LR 1000ml ONE (20:00)
--- NOTE | 2016-07-27 20:14 | Pre-Procedure Note/Attestation ---
Pre-Procedure Note/Attestation Complete Prior to Procedure Planned Procedure: not applicable Procedure Narrative: Exploratory Laparotomy Indications for Procedure Pre-Operative Diagnosis: Acute abdomen Attestation I attest that I discussed the nature of the procedure; its benefits; risks and complications; and alternatives (and the risks and benefits of such alternatives ), prior to the procedure, with the patient (or the patient's legal financial services sales representative). I attest that, if there was a reasonable possibility of needing a blood transfusion, the patient (or the patient's legal financial services sales representative) was given the [facility] standardized written summary, pursuant to the Nas Ramírez Blood Safety Act ([place] Health and Safety Code # 1645, as amended). I attest that I re-evaluated the patient just prior to the surgery and that there has been no change in the patient's H&P, except as documented below: EDWIN NOGUEIRA Jul 27, 2016 20:14
--- NOTE | 2016-07-27 20:28 | Cardiology Report ---
APPROVED REPORT EKG Measurement Heart [id number] Sinus rhythm with premature atrial complexes with aberrant conduction Prolonged QT Abnormal ECG
[2016-07-27 20:53] LABS: MAGNESIUM 1.6 mg/dL (1.7-2.5); PHOSPHORUS 6.7 mg/dL (2.5-4.8); URIC ACID 7.7 mg/dL (3.0-7.5)
--- NOTE | 2016-07-27 21:02 | Immediate Post-Op Evaluation ---
Immediate Post-Op Evalulation Immediate Post-Op Evalulation Procedure: Exploratory laparotomy Date of Evaluation: Jul 27, 2016 Time of Evaluation: 23:30 IV Fluids: 1300 LR Blood Products: 500 Albumin Estimated Blood Loss: 300 Urinary Output: 150 Blood Pressure Systolic: 109 Blood Pressure Diastolic: 61 Pulse Rate: 98 Respiratory Rate: 16 - Vent, Left intubated as pt was not protecting airway at start of case. O2 Sat by Pulse Oximetry: 100 Temperature (Fahrenheit): 98.2 Pain Score (1-10): 2 Nausea: No Vomiting: No Complications 0 Patient Status: no response, patent, ventilated, none Hydration Status: adequate Drug: Already On Demetrius Almaraz MD Jul 27, 2016 21:02
[2016-07-27 21:04] LABS: BAND NEUTROPHILS % (MANUAL) 6 % (0-8); BASOPHILS % (MANUAL) 0 % (0-2); EOSINOPHILS % (MANUAL) 1 % (0-3); LYMPHOCYTES % (MANUAL) 9 % (20-45); NEUTROPHILS % (MANUAL) 73 % (45-75); PLATELET ESTIMATE ADEQUATE; PLATELET MORPHOLOGY NORMAL; TOTAL CELLS COUNTED 100
[2016-07-27] MEDS ORDERED: NS Irrig 1000ml IRRIG ONE ×2 (21:05→22:04)
--- NOTE | 2016-07-27 21:10 | General Progress Note ---
Assessment/Plan Assessment/Plan Assessment - SBO - septic shock - ATN - lactic acidosis - s/p ex lap Recommendations NPO IVF pressors abx PPI supportive ICU care no tube feeds Subjective Allergies: Coded Allergies: No Known Allergies (Unverified , 07/26/16) Subjective above all noted patient seen early am today at time of visit c/o mild wound pain but was comfortable subsequently had worsening status with septic shock taken back to OR now in ICU Objective Last 24 Hour Vital Signs Date Time Temp Pulse Resp B/P Pulse Ox O2 Delivery O2 Flow Rate FiO2 07/27/16 19:34 123 20 121/53 98 Room Air 07/27/16 19:00 120 20 110/81 99 Room Air 07/27/16 18:00 115 20 103/75 97 Room Air 07/27/16 17:00 113 20 81/57 100 Room Air 07/27/16 16:00 118 07/27/16 16:00 97.3 117 20 94/53 98 Room Air 07/27/16 15:22 97.9 07/27/16 15:00 120 21 86/43 96 Room Air 07/27/16 14:00 113 16 87/62 98 Room Air 07/27/16 13:00 117 17 93/64 98 Room Air 07/27/16 12:57 97.9 118 17 89/59 97 Room Air 07/27/16 09:09 76 22 99 07/27/16 08:00 97.3 123 20 120/58 97 Room Air 07/27/16 04:00 97.0 110 20 118/86 96 Room Air 07/27/16 00:00 96.8 100 16 121/89 95 Room Air Intake and Output 07/26/16 07/27/16 19:00 07:00 Intake Total 1025 ml Output Total 650 ml Balance 375 ml Intake Oral 0 ml IV Total 1025 ml Output Urine Total 650 ml # Voids 3 Laboratory Tests 07/27/16 06:10: White Blood Count 19.1H, Red Blood Count 5.87, Hemoglobin 17.9, Hematocrit 56.0H , Mean Corpuscular Volume 95, Mean Corpuscular Hemoglobin 30.5, Mean Corpuscular Hemoglobin Concent 32.0, Red Cell Distribution Width 13.3, Platelet Count 322, Mean Platelet Volume 7.3, Neutrophils (%) (Auto) , Lymphocytes (%) ( Auto) , Monocytes (%) (Auto) , Eosinophils (%) (Auto) , Basophils (%) (Auto) , Differential Total Cells Counted 100, Neutrophils % (Manual) 78H, Lymphocytes % (Manual) 6L, Monocytes % (Manual) 14H, Eosinophils % (Manual) 0, Basophils % ( Manual) 0, Band Neutrophils 2, Platelet Estimate Adequate, Platelet Morphology Normal, Red Blood Cell Morphology Normal, Sodium Level 139, Potassium Level 5.4H , Chloride Level 99, Carbon Dioxide Level 14L, Anion Gap 26H, Blood Urea Nitrogen 28H, Creatinine 3.0#H, Estimat Glomerular Filtration Rate 21.1, Glucose Level 266H, Lactic Acid Level 8.00H, Calcium Level 8.3L, Lipase 22 07/27/16 09:30: Lactic Acid Level 6.70H 07/27/16 14:39: Arterial Blood pH 7.290L, Arterial Blood Partial Pressure CO2 35.3, Arterial Blood Partial Pressure O2 78.0, Arterial Blood HCO3 16.7L, Arterial Blood Oxygen Saturation 94.0, Arterial Blood Base Excess -8.9, Oliver Test 07/27/16 19:00: White Blood Count 22.2*H, Red Blood Count 4.57L, Hemoglobin 14.2, Hematocrit 42.4, Mean Corpuscular Volume 93, Mean Corpuscular Hemoglobin 31.0, Mean Corpuscular Hemoglobin Concent 33.4, Red Cell Distribution Width 12.7, Platelet Count 219, Mean Platelet Volume 7.6, Neutrophils (%) (Auto) , Lymphocytes (%) ( Auto) , Monocytes (%) (Auto) , Eosinophils (%) (Auto) , Basophils (%) (Auto) , Differential Total Cells Counted 100, Neutrophils % (Manual) 73, Lymphocytes % ( Manual) 9L, Monocytes % (Manual) 11H, Eosinophils % (Manual) 1, Basophils % ( Manual) 0, Band Neutrophils 6, Platelet Estimate Adequate, Platelet Morphology Normal, Red Blood Cell Morphology Normal, Sodium Level 136, Potassium Level 5.2H , Chloride Level 100, Carbon Dioxide Level 15L, Anion Gap 21H, Blood Urea Nitrogen 40H, Creatinine 4.4H, Estimat Glomerular Filtration Rate 13.6, Glucose Level 178H, Lactic Acid Level 2.90H, Calcium Level 6.9L, Osmolality [Pending], Uric Acid 7.7H, Phosphorus Level 6.7H, Magnesium Level 1.6L, Total Creatine Kinase 604H, Free Thyroxine 1.69, Cortisol [Pending] Height (Feet): 5 Height (Inches): 6.00 Weight (Pounds): 162 Objective WDWN man exam reflects status early am - I was not notified of any subsequent issues all day NCAT supple CTA RR abd mild distended, (+)large abd wound, dressing dry no edema ALVAREZ MARTINEZ Jul 27, 2016 21:10
[2016-07-27] MEDS ORDERED: Triple abx Irrig 1000ml IRRIG ONE (22:04)
[2016-07-27] MEDS ORDERED: Acetaminophen 650 MG SUPP RECTAL PRN (22:45)
[2016-07-27] MEDS ORDERED: HYDROmorphone 1mg/ml Carpuject IVP PRN (22:45)
[2016-07-27] MEDS ORDERED: Metoclopramide 10mg/2ml Inj IVP PRN (22:45)
[2016-07-27] MEDS ORDERED: Hydromorphone 0.5mg/0.5ml inj IVP PRN (22:45)
--- NOTE | 2016-07-27 23:02 | Brief Operative Note ---
Immediate Post Operative Note Operative Note Pre-op Diagnosis: acute abdomen Procedure: Exploratory Laparotomy small bowel resection Post-op Diagnosis: Gangrene of small bowel Surgeon: MD Alpesh Juke Box Servicer: None Anesthesiologist: Dr. Koenig Anesthesia: general Specimen: yes Complications: none Condition: unstable Estimated Blood Loss: volume - 100 ml Drains: DAKOTA Implant(s) used?: No EDWIN NOGUEIRA Jul 27, 2016 23:02
[2016-07-28] VITALS (25 sets, daily range): BP systolic 105–175; BP diastolic 55–87
[2016-07-28 00:18] LABS: BASOPHILS % (AUTO) 0.4 % (0.0-2.0); LYMPHOCYTES % (AUTO) 11.3 % (20.0-45.0); MEAN CORPUSCULAR HEMOGLOBIN 31.3 PG (27.0-31.0); MEAN CORPUSCULAR HGB CONC 34.3 G/DL (32.0-36.0); MEAN CORPUSCULAR VOLUME 91 FL (80-99); MEAN PLATELET VOLUME 8.6 FL (6.5-10.1); MONOCYTES % (AUTO) 6.8 % (1.0-10.0); NEUTROPHILS % (AUTO) 81.5 % (45.0-75.0); PLATELET COUNT 161 K/UL (150-450); RED CELL DISTRIBUTION WIDTH 12.6 % (11.6-14.8); WHITE BLOOD COUNT 9.9 K/UL (4.8-10.8)
[2016-07-28 00:33] LABS: ALBUMIN/GLOBULIN RATIO 1.5 (1.0-2.7); CALCIUM 6.9 mg/dL (8.6-10.2); CREATININE 4.3 mg/dL (0.7-1.2); GLOMERULAR FILTRATION RATE 13.9 mL/min (>60); TOTAL PROTEIN 4.6 g/dL (6.6-8.7)
[2016-07-28 00:37] LABS: POTASSIUM 6.1 mEQ/L (3.4-4.9)
[2016-07-28 00:39] LABS: FREE T3 1.6 pg/mL (2.3-4.2); THYROID STIMULATING HORMONE 1.07 uIU/mL (0.300-4.500)
--- NOTE | 2016-07-28 00:47 | Consultation ---
DATE OF CONSULTATION: 07/27/2016 CARDIOLOGY CONSULTATION REASON FOR CONSULTATION: Tachycardia and hypotension. HISTORY OF PRESENT ILLNESS: The patient is a 65-year-old gentleman with no major past medical history, who was brought to the emergency room with severe abdominal pain. The patient was found to have a leukocytosis and underwent emergency surgery by Dr. Murrieta with exploratory laparotomy with lysis of adhesions for small bowel obstruction. No bowel resection was performed. The patient was then brought to intensive care unit. Today the patient's white count noted to be elevated raising from 13,000 to 19,000 and the patient currently has severe abdominal pain. His heart rate is also in 120s and has still severe abdominal pain. At the time of my evaluation, Dr. Murrieta is also at the bedside evaluating the patient and discussion with the patient's as well as intensive care unit nurse and charge nurse. REVIEW OF SYSTEMS: Cannot be performed, as the patient primarily has severe abdominal pain. PAST MEDICAL HISTORY: Small bowel obstruction, status post surgery as mentioned above. Diabetes, hypertension and chronic renal disease. PAST SURGICAL HISTORY: History of appendectomy. ALLERGIES: He has no known drug allergies. MEDICATIONS: Per reconciliation sheet. SOCIAL HISTORY: He is retired and lives with his . Drinks alcohol occasionally. PHYSICAL EXAMINATION: VITAL SIGNS: Blood pressure is now 100/70, pulse 110 to 120, and respirations 20. HEAD AND NECK: No JVD. He has an NG-tube. LUNGS: Coarse rhonchi. CARDIOVASCULAR: Regular S1 and S2 with no gallop or murmur. Tachycardic. ABDOMEN: Very distended status post median laparotomy. EXTREMITIES: There is no , no pitting edema. LABORATORY AND DIAGNOSTIC DATA: White count of 19.1, hemoglobin of 17.9, hematocrit of 56 and platelet count of 322,000. Sodium was 139, potassium 5.4, BUN of 28, creatinine of 3 and glucose of 266. The first troponin is negative. Sodium 142, potassium 3.3, hematocrit of 17, creatinine 1.1, and glucose of 171. ASSESSMENT AND PLAN: 1. Tachycardia and hypotension, likely due to septic shock in this patient who also just underwent Mohs surgery for small bowel obstruction. I discussed the case in detail with Dr. Murrieta. They both recommended that the patient is to have emergency reevaluation of her abdomen with exploratory laparotomy. Again, as the abdomen is very tense, the patient continues to be hypotensive and tachycardic. We will give the patient another liter of normal saline and start the patient on Levophed. The patient will receive IV antibiotics. I did earlier stat EKG that showed sinus tachycardia at 120, otherwise normal electrocardiogram with no evidence of ischemia and an echocardiogram also be ordered, but it will be done most likely after surgery, as the patient is going to the operating room emergently. 2. Small bowel obstruction status post laparotomy. Repeat the laboratories again. The patient will go back to surgery. 3. Renal failure, creatinine 3. Further evaluation by Dr. Rai. Thank very much, Dr. Love, for allowing me to participate in the care of this patient. Please do not hesitate to contact me for any questions regarding my evaluation. Selwyn Golden M.D. DR: TAM JOB#: [id number] CC:
--- NOTE | 2016-07-28 03:17 | Operative Note - Dictated ---
DATE OF OPERATION: 07/27/2016 PREOPERATIVE DIAGNOSIS: Acute abdomen. POSTOPERATIVE DIAGNOSIS: Gangrene of the small bowel. OPERATION: 1. Exploratory laparotomy.lysis of adhesions 2. Resection of the small bowel with primary anastomosis. COMPLICATIONS: None. SURGEON: Wisam Murrieta M.D. TEACHER MUSIC: None. ANESTHESIA: General with endotracheal tube. ANESTHESIOLOGIST: Dr. Almaraz. INDICATION: This is a 65-year-old oriental male, who presented to emergency room two days ago for abdominal pain and vomiting. the patient underwent an exploratory laparotomy, during which volvulus proximal part of the jejunum was encountered. The volvulus was reduced. The bowel, which was completely dusky, recovered and was completely pink. The exploration was performed as there was no other complication. The patient was returned to bed 1. This morning, I was at noon, I was notified that the urine output was low and then it was noticed that the patient had hypotension and tachycardia and finally the physical examination showed rigid abdomen and the WBC was about 19,000. So, the decision for exploratory laparotomy was made. PROCEDURE: The patient was placed supine on the operating table and after general anesthesia with endotracheal tube, the abdomen was properly prepped and draped. The previous incision was opened up and it was extended about 2 inches cephalad in entering the intra-abdominal cavity, large amount of bloody fluid was encountered, which was suctioned out and then exploration was performed. It was noticed that about 40% to 50% of the small bowel was gangrenous and this small bowel was from cecum, extending proximal. Initially all the adhesions were released. Adhesion of the omentum to the abdominal wall was released. The cecum was released and the small bowel was completely ran from Treitz ligament to the cecum and then the gangrenous part of the small bowel was isolated with the help of the RADHA stapler, which was placed on the small bowel proximal to the cecum and at the normal bowel proximal to the gangrenous part. This part of the small bowel was removed with multiple ligation of the mesentery with the 0 silk ties. The specimen was removed from the field. Functional end-to-end anastomoses was performed between the small bowel and the cecum with the help of the RADHA stapler. The defect in the mesentery was approximated with multiple sutures of 3-0 silk. After this the intraperitoneal cavity was thoroughly irrigated with antibiotic solution and normal saline. The Kyree drain was placed in the pelvis and was brought out from a separate stab wound at the right upper quadrant of the abdomen. Another exploration was performed. There was no complication. The incision was approximated with running suture of #1 Vicryl for posterior fascia, #1 Prolene for anterior fascia, and multiple skin cristy. The patient tolerated the procedure and was transferred to the ICU in guarded condition. It should be noted that during the whole procedure, the blood pressure of the patient was relatively low. Condition of the patient at the end of procedure guarded. Estimated blood loss 100 mL. The sponge and needle counts correct. Wisam Murrieta M.D. DR: Evy JOB#: [id number] CC: DIANA
[2016-07-28] MEDS: Clindamycin 600mg 50 ML IV SCH ×3 (04:08→20:00)
[2016-07-28 05:28] LABS: BASOPHILS % (AUTO) 0.6 % (0.0-2.0); LYMPHOCYTES % (AUTO) 8.8 % (20.0-45.0); MEAN CORPUSCULAR HEMOGLOBIN 30.8 PG (27.0-31.0); MEAN CORPUSCULAR HGB CONC 33.3 G/DL (32.0-36.0); MEAN CORPUSCULAR VOLUME 92 FL (80-99); MEAN PLATELET VOLUME 8.2 FL (6.5-10.1); MONOCYTES % (AUTO) 9.3 % (1.0-10.0); NEUTROPHILS % (AUTO) 81.3 % (45.0-75.0); PLATELET COUNT 149 K/UL (150-450); RED BLOOD COUNT 3.54 M/UL (4.70-6.10); RED CELL DISTRIBUTION WIDTH 12.4 % (11.6-14.8)
[2016-07-28 06:15] LABS: REFLEX LACTIC ACID YES OR NO YES
[2016-07-28 06:48] LABS: HEMOGLOBIN A1C 5.6 % (< 6.0)
[2016-07-28 06:49] LABS: ALANINE AMINOTRANSFERASE 541 U/L (3-41); ALBUMIN/GLOBULIN RATIO 1.3 (1.0-2.7); ANION GAP 17 (5-15); ASPARTATE AMINO TRANSFERASE 713 U/L (5-40); CALCIUM 7.1 mg/dL (8.6-10.2); CARBON DIOXIDE 19 mEQ/L (20-30); CHLORIDE 104 mEQ/L (98-107); CHOLESTEROL 95 mg/dL (< 200); CHOLESTEROL/HDL RATIO 3.1 (3.3-4.4); CREATININE 4.4 mg/dL (0.7-1.2); CRP QUANT 12.6 mg/dL (< 0.5); GLOMERULAR FILTRATION RATE 13.6 mL/min (>60); HEMOLYSIS 51; LDL CHOLESTEROL (CALC.) 46 mg/dL (60-99); MAGNESIUM 1.6 mg/dL (1.7-2.5); PHOSPHORUS 5.1 mg/dL (2.5-4.8); SODIUM 140 mEQ/L (135-145); TOTAL PROTEIN 4.4 g/dL (6.6-8.7); URIC ACID 7.1 mg/dL (3.0-7.5)
[2016-07-28 06:55] LABS: TROPONIN I 1.35 ng/mL (<=0.30)
[2016-07-28 07:44] LABS: APPEARANCE,URINE SLIGHTLY CLOUDY; KETONES,URINE NEGATIVE (NEGATIVE); LEUKOCYTE ESTERASE ,URINE NEGATIVE (NEGATIVE); NITRITE,URINE NEGATIVE (NEGATIVE); PH,URINE 5 (4.5-8.0); PROTEIN,URINE 3+ (NEGATIVE); UROBILINOGEN,URINE NORMAL MG/DL (0.0-1.0)
[2016-07-28 07:52] LABS: AMORPHOUS SEDIMENT,UR FEW /LPF; BACTERIA,URINE FEW /HPF; SQUAMOUS EPITHELIAL CELL,UR OCCASIONAL /LPF (NONE/OCC); WBC,URINE 0-2 /HPF (0 - 0)
[2016-07-28] MEDS ORDERED: Pantoprazole Inj IVP SCH (09:00)
--- NOTE | 2016-07-28 10:02 | General Progress Note ---
Assessment/Plan Assessment/Plan (1) Small bowel obstruction (2) Intractable abdominal pain (3) Gangrene of the small bowel (4) S/p Exploratory Laparotomy resection of the small bowel with primary anastomosis. Pt will be continued on Dilaudid as needed. Parameters were placed if SBP <90 or DBP <60 to hold the opioids. Pt was d/w Dr. Aguirre and he concurred. Subjective Date patient seen: Jul 28, 2016 Time patient seen: 08:00 - am ROS Limited/Unobtainable: Yes Allergies: Coded Allergies: No Known Allergies (Unverified , 07/26/16) Subjective Patient has been brought to ICU s/p 2nd exploratory laparotomy found to have gangrenous bowel as per surgeon. At this time pt is on ventilator Awake alert and oriented with hand gestures pain is a 5/10. Son in law is at bed side. Objective Last 24 Hour Vital Signs Date Time Temp Pulse Resp B/P Pulse Ox O2 Delivery O2 Flow Rate FiO2 07/28/16 07:25 99 21 35 07/28/16 07:00 98 20 124/70 100 Mechanical Ventilator 40 07/28/16 06:00 99 19 122/64 99 Mechanical Ventilator 40 07/28/16 05:24 102 25 40 07/28/16 05:00 99 22 122/78 100 Mechanical Ventilator 40 07/28/16 04:00 98.9 97 21 127/79 100 Mechanical Ventilator 40 07/28/16 04:00 97 07/28/16 03:30 96 25 60 07/28/16 03:00 99 21 118/81 100 Mechanical Ventilator 60 07/28/16 02:00 106 23 123/80 100 Mechanical Ventilator 60 07/28/16 01:27 104 21 80 07/28/16 01:00 112 22 146/75 100 Mechanical Ventilator 80 07/28/16 00:30 114 19 149/81 100 Mechanical Ventilator 80 07/28/16 00:00 120 16 175/55 100 Mechanical Ventilator 80 07/28/16 00:00 120 07/27/16 23:30 98.7 108 17 121/53 100 Mechanical Ventilator 100 07/27/16 23:20 110 16 100 07/27/16 23:17 98 16 100 07/27/16 19:34 123 20 121/53 98 Room Air 07/27/16 19:00 120 20 110/81 99 Room Air 07/27/16 18:00 115 20 103/75 97 Room Air 07/27/16 17:00 113 20 81/57 100 Room Air 07/27/16 16:00 118 07/27/16 16:00 97.3 117 20 94/53 98 Room Air 07/27/16 15:22 97.9 07/27/16 15:00 120 21 86/43 96 Room Air 07/27/16 14:00 113 16 87/62 98 Room Air 07/27/16 13:00 117 17 93/64 98 Room Air 07/27/16 12:57 97.9 118 17 89/59 97 Room Air Intake and Output 07/27/16 07/28/16 19:00 07:00 Intake Total 1550 ml 1175 ml Output Total 410 ml 605 ml Balance 1140 ml 570 ml IV Total 1550 ml 1175 ml Output Urine Total 410 ml 405 ml Gastric Drainage Total 100 ml Drainage Total 100 ml Laboratory Tests 07/27/16 14:39: Arterial Blood pH 7.290L, Arterial Blood Partial Pressure CO2 35.3, Arterial Blood Partial Pressure O2 78.0, Arterial Blood HCO3 16.7L, Arterial Blood Oxygen Saturation 94.0, Arterial Blood Base Excess -8.9, Oliver Test 07/27/16 19:00: White Blood Count 22.2*H, Red Blood Count 4.57L, Hemoglobin 14.2, Hematocrit 42.4, Mean Corpuscular Volume 93, Mean Corpuscular Hemoglobin 31.0, Mean Corpuscular Hemoglobin Concent 33.4, Red Cell Distribution Width 12.7, Platelet Count 219, Mean Platelet Volume 7.6, Neutrophils (%) (Auto) , Lymphocytes (%) ( Auto) , Monocytes (%) (Auto) , Eosinophils (%) (Auto) , Basophils (%) (Auto) , Differential Total Cells Counted 100, Neutrophils % (Manual) 73, Lymphocytes % ( Manual) 9L, Monocytes % (Manual) 11H, Eosinophils % (Manual) 1, Basophils % ( Manual) 0, Band Neutrophils 6, Platelet Estimate Adequate, Platelet Morphology Normal, Red Blood Cell Morphology Normal, Sodium Level 136, Potassium Level 5.2H , Chloride Level 100, Carbon Dioxide Level 15L, Anion Gap 21H, Blood Urea Nitrogen 40H, Creatinine 4.4H, Estimat Glomerular Filtration Rate 13.6, Glucose Level 178H, Osmolality [Pending], Lactic Acid Level 2.90H, Uric Acid 7.7H, Calcium Level 6.9L, Phosphorus Level 6.7H, Magnesium Level 1.6L, Total Creatine Kinase 604H, Free Thyroxine 1.69, Cortisol [Pending] 07/27/16 23:50: White Blood Count 9.9#, Red Blood Count 3.90L, Hemoglobin 12.2L, Hematocrit 35.6L, Mean Corpuscular Volume 91, Mean Corpuscular Hemoglobin 31.3H, Mean Corpuscular Hemoglobin Concent 34.3, Red Cell Distribution Width 12.6, Platelet Count 161, Mean Platelet Volume 8.6, Neutrophils (%) (Auto) 81.5H, Lymphocytes ( %) (Auto) 11.3L, Monocytes (%) (Auto) 6.8, Eosinophils (%) (Auto) 0.0, Basophils (%) (Auto) 0.4, Sodium Level 138, Potassium Level 6.1*H, Chloride Level 101, Carbon Dioxide Level 17L, Anion Gap 20H, Blood Urea Nitrogen 45H, Creatinine 4.3H, Estimat Glomerular Filtration Rate 13.9, Glucose Level 167H, Lactic Acid Level 2.70H, Calcium Level 6.9L, Total Bilirubin 0.6, Aspartate Amino Transf (AST/SGOT) 780H, Alanine Aminotransferase (ALT/SGPT) 633H, Alkaline Phosphatase 36L, Total Protein 4.6L, Albumin 2.8L, Globulin 1.8, Albumin/Globulin Ratio 1.5, Thyroid Stimulating Hormone (TSH) 1.070, Free Triiodothyronine 1.6L 07/28/16 05:00: White Blood Count 9.0, Red Blood Count 3.54L, Hemoglobin 10.9L, Hematocrit 32.8L , Mean Corpuscular Volume 92, Mean Corpuscular Hemoglobin 30.8, Mean Corpuscular Hemoglobin Concent 33.3, Red Cell Distribution Width 12.4, Platelet Count 149L, Mean Platelet Volume 8.2, Neutrophils (%) (Auto) 81.3H, Lymphocytes (%) (Auto) 8.8L, Monocytes (%) (Auto) 9.3, Eosinophils (%) (Auto) 0.0, Basophils (%) (Auto) 0.6, Sodium Level 140, Potassium Level 5.0H, Chloride Level 104, Carbon Dioxide Level 19L, Anion Gap 17H, Blood Urea Nitrogen 48H, Creatinine 4.4H, Estimat Glomerular Filtration Rate 13.6, Glucose Level 211H, Lactic Acid Level 2.60H, Uric Acid 7.1, Calcium Level 7.1L, Phosphorus Level 5.1H, Magnesium Level 1.6L, Total Creatine Kinase 1180H, Free Thyroxine 1.41, Total Bilirubin 0.5, Aspartate Amino Transf (AST/SGOT) 713H, Alanine Aminotransferase (ALT/SGPT) 541H, Alkaline Phosphatase 35L, Total Protein 4.4L, Albumin 2.5L, Globulin 1.9, Albumin/Globulin Ratio 1.3, Thyroid Stimulating Hormone (TSH) 0.590, Hemoglobin A1c 5.6, Gamma Glutamyl Transpeptidase 26, Troponin I 1.35*H, C-Reactive Protein, Quantitative 12.6H, Pro-B-Type Natriuretic Peptide 1040H, Triglycerides Level 89, Cholesterol Level 95, LDL Cholesterol 46L, HDL Cholesterol 31, Cholesterol/HDL Ratio 3.1L 07/28/16 07:20: Urine Color Pale yellow, Urine Appearance Slightly cloudy, Urine pH 5, Urine Specific [place] 1.015, Urine Protein 3+H, Urine Glucose (UA) 1+H, Urine Ketones Negative, Urine Occult Blood 5+H, Urine Nitrite Negative, Urine Bilirubin Negative, Urine Urobilinogen Normal, Urine Leukocyte Esterase Negative , Urine RBC 2-4H, Urine WBC 0-2, Urine Squamous Epithelial Cells Occasional, Urine Amorphous Sediment FewH, Urine Bacteria Few, Urine Eosinophils None seen, Urine Osmolality [Pending], Urine Random Sodium 50, Urine Random Chloride 48, Urine Potassium Timed 43 Height (Feet): 5 Height (Inches): 6.00 Weight (Pounds): 162 General Appearance: alert EENT: PERRL/EOMI Neck: non-tender, supple Cardiovascular: normal rate, regular rhythm Respiratory/Chest: lungs clear, other - on ventilator Abdomen: other - tenderness to palpation bandages applied Extremities: normal inspection Neurologic: alert, responsive Skin: warm/dry SHA BOSE PEzequiel Jul 28, 2016 10:02
[2016-07-28 10:06] LABS: ABG ALLEN TEST POSITIVE; ABG BASE EXCESS -4.3; ABG PCO2 30.7 mmHg (35.0-45.0)
[2016-07-28] MEDS: Enoxaparin 30mg Inj SUBQ SCH (10:19)
[2016-07-28] MEDS: D5NS 1,000 ML IV SCH ×3 (10:20→18:40)
--- NOTE | 2016-07-28 10:45 | General Progress Note ---
Assessment/Plan Status: unchanged Assessment/Plan status: Septic Shock leading to acute renal failure- Abdominal Surgery 07/26/16 then again 05/27 Plan; Fluid challenge- Antibiotics- Protonix IV monitor renal parameters- Subjective ROS Limited/Unobtainable: Yes Allergies: Coded Allergies: No Known Allergies (Unverified , 07/26/16) Objective Last 24 Hour Vital Signs Date Time Temp Pulse Resp B/P Pulse Ox O2 Delivery O2 Flow Rate FiO2 07/28/16 07:25 99 21 35 07/28/16 07:00 98 20 124/70 100 Mechanical Ventilator 40 07/28/16 06:00 99 19 122/64 99 Mechanical Ventilator 40 07/28/16 05:24 102 25 40 07/28/16 05:00 99 22 122/78 100 Mechanical Ventilator 40 07/28/16 04:00 98.9 97 21 127/79 100 Mechanical Ventilator 40 07/28/16 04:00 97 07/28/16 03:30 96 25 60 07/28/16 03:00 99 21 118/81 100 Mechanical Ventilator 60 07/28/16 02:00 106 23 123/80 100 Mechanical Ventilator 60 07/28/16 01:27 104 21 80 07/28/16 01:00 112 22 146/75 100 Mechanical Ventilator 80 07/28/16 00:30 114 19 149/81 100 Mechanical Ventilator 80 07/28/16 00:00 120 16 175/55 100 Mechanical Ventilator 80 07/28/16 00:00 120 07/27/16 23:30 98.7 108 17 121/53 100 Mechanical Ventilator 100 07/27/16 23:20 110 16 100 07/27/16 23:17 98 16 100 07/27/16 19:34 123 20 121/53 98 Room Air 07/27/16 19:00 120 20 110/81 99 Room Air 07/27/16 18:00 115 20 103/75 97 Room Air 07/27/16 17:00 113 20 81/57 100 Room Air 07/27/16 16:00 118 07/27/16 16:00 97.3 117 20 94/53 98 Room Air 07/27/16 15:22 97.9 07/27/16 15:00 120 21 86/43 96 Room Air 07/27/16 14:00 113 16 87/62 98 Room Air 07/27/16 13:00 117 17 93/64 98 Room Air 07/27/16 12:57 97.9 118 17 89/59 97 Room Air Intake and Output 07/27/16 07/28/16 19:00 07:00 Intake Total 1550 ml 1175 ml Output Total 410 ml 605 ml Balance 1140 ml 570 ml IV Total 1550 ml 1175 ml Output Urine Total 410 ml 405 ml Gastric Drainage Total 100 ml Drainage Total 100 ml Laboratory Tests 07/27/16 14:39: Arterial Blood pH 7.290L, Arterial Blood Partial Pressure CO2 35.3, Arterial Blood Partial Pressure O2 78.0, Arterial Blood HCO3 16.7L, Arterial Blood Oxygen Saturation 94.0, Arterial Blood Base Excess -8.9, Oliver Test 07/27/16 19:00: White Blood Count 22.2*H, Red Blood Count 4.57L, Hemoglobin 14.2, Hematocrit 42.4, Mean Corpuscular Volume 93, Mean Corpuscular Hemoglobin 31.0, Mean Corpuscular Hemoglobin Concent 33.4, Red Cell Distribution Width 12.7, Platelet Count 219, Mean Platelet Volume 7.6, Neutrophils (%) (Auto) , Lymphocytes (%) ( Auto) , Monocytes (%) (Auto) , Eosinophils (%) (Auto) , Basophils (%) (Auto) , Differential Total Cells Counted 100, Neutrophils % (Manual) 73, Lymphocytes % ( Manual) 9L, Monocytes % (Manual) 11H, Eosinophils % (Manual) 1, Basophils % ( Manual) 0, Band Neutrophils 6, Platelet Estimate Adequate, Platelet Morphology Normal, Red Blood Cell Morphology Normal, Sodium Level 136, Potassium Level 5.2H , Chloride Level 100, Carbon Dioxide Level 15L, Anion Gap 21H, Blood Urea Nitrogen 40H, Creatinine 4.4H, Estimat Glomerular Filtration Rate 13.6, Glucose Level 178H, Osmolality [Pending], Lactic Acid Level 2.90H, Uric Acid 7.7H, Calcium Level 6.9L, Phosphorus Level 6.7H, Magnesium Level 1.6L, Total Creatine Kinase 604H, Free Thyroxine 1.69, Cortisol [Pending] 07/27/16 23:50: White Blood Count 9.9#, Red Blood Count 3.90L, Hemoglobin 12.2L, Hematocrit 35.6L, Mean Corpuscular Volume 91, Mean Corpuscular Hemoglobin 31.3H, Mean Corpuscular Hemoglobin Concent 34.3, Red Cell Distribution Width 12.6, Platelet Count 161, Mean Platelet Volume 8.6, Neutrophils (%) (Auto) 81.5H, Lymphocytes ( %) (Auto) 11.3L, Monocytes (%) (Auto) 6.8, Eosinophils (%) (Auto) 0.0, Basophils (%) (Auto) 0.4, Sodium Level 138, Potassium Level 6.1*H, Chloride Level 101, Carbon Dioxide Level 17L, Anion Gap 20H, Blood Urea Nitrogen 45H, Creatinine 4.3H, Estimat Glomerular Filtration Rate 13.9, Glucose Level 167H, Lactic Acid Level 2.70H, Calcium Level 6.9L, Total Bilirubin 0.6, Aspartate Amino Transf (AST/SGOT) 780H, Alanine Aminotransferase (ALT/SGPT) 633H, Alkaline Phosphatase 36L, Total Protein 4.6L, Albumin 2.8L, Globulin 1.8, Albumin/Globulin Ratio 1.5, Thyroid Stimulating Hormone (TSH) 1.070, Free Triiodothyronine 1.6L 07/28/16 05:00: White Blood Count 9.0, Red Blood Count 3.54L, Hemoglobin 10.9L, Hematocrit 32.8L , Mean Corpuscular Volume 92, Mean Corpuscular Hemoglobin 30.8, Mean Corpuscular Hemoglobin Concent 33.3, Red Cell Distribution Width 12.4, Platelet Count 149L, Mean Platelet Volume 8.2, Neutrophils (%) (Auto) 81.3H, Lymphocytes (%) (Auto) 8.8L, Monocytes (%) (Auto) 9.3, Eosinophils (%) (Auto) 0.0, Basophils (%) (Auto) 0.6, Sodium Level 140, Potassium Level 5.0H, Chloride Level 104, Carbon Dioxide Level 19L, Anion Gap 17H, Blood Urea Nitrogen 48H, Creatinine 4.4H, Estimat Glomerular Filtration Rate 13.6, Glucose Level 211H, Lactic Acid Level 2.60H, Uric Acid 7.1, Calcium Level 7.1L, Phosphorus Level 5.1H, Magnesium Level 1.6L, Total Creatine Kinase 1180H, Free Thyroxine 1.41, Total Bilirubin 0.5, Aspartate Amino Transf (AST/SGOT) 713H, Alanine Aminotransferase (ALT/SGPT) 541H, Alkaline Phosphatase 35L, Total Protein 4.4L, Albumin 2.5L, Globulin 1.9, Albumin/Globulin Ratio 1.3, Thyroid Stimulating Hormone (TSH) 0.590, Hemoglobin A1c 5.6, Gamma Glutamyl Transpeptidase 26, Troponin I 1.35*H, C-Reactive Protein, Quantitative 12.6H, Pro-B-Type Natriuretic Peptide 1040H, Triglycerides Level 89, Cholesterol Level 95, LDL Cholesterol 46L, HDL Cholesterol 31, Cholesterol/HDL Ratio 3.1L 07/28/16 07:20: Urine Color Pale yellow, Urine Appearance Slightly cloudy, Urine pH 5, Urine Specific [place] 1.015, Urine Protein 3+H, Urine Glucose (UA) 1+H, Urine Ketones Negative, Urine Occult Blood 5+H, Urine Nitrite Negative, Urine Bilirubin Negative, Urine Urobilinogen Normal, Urine Leukocyte Esterase Negative , Urine RBC 2-4H, Urine WBC 0-2, Urine Squamous Epithelial Cells Occasional, Urine Amorphous Sediment FewH, Urine Bacteria Few, Urine Eosinophils None seen, Urine Osmolality [Pending], Urine Random Sodium 50, Urine Random Chloride 48, Urine Potassium Timed 43 07/28/16 09:59: Arterial Blood pH 7.417, Arterial Blood Partial Pressure CO2 30.7L, Arterial Blood Partial Pressure O2 83.5, Arterial Blood HCO3 19.3L, Arterial Blood Oxygen Saturation 95.9, Arterial Blood Base Excess -4.3, Oliver Test Positive Height (Feet): 5 Height (Inches): 6.00 Weight (Pounds): 162 General Appearance: other - intubated- awake Cardiovascular: tachycardia Respiratory/Chest: decreased breath sounds Abdomen: distended, other - silent REBECCA SCHULTE Jul 28, 2016 10:45
--- NOTE | 2016-07-28 10:47 | Cardiac Electrophysiology PN ---
Assessment/Plan Assessment/Plan 1. NSTEMI with elevated troponin due to demand ischemia vs renal failure. ECG last night non ischemic. Will repeat ECG . ECho report pending.Get serial cardiac enzymes. Hold off on betablocker for low BP. 2. Septic shock due to small bowel obstruction and gangrene. Off pressors.On iv fluid and antibiotics. 3. Small bowel obstruction status post laparotomy and small bowel resection. Follow up Dr Murrieta. 4. Respiratory failur on vent 5. Renal failure, creatinine 3 rising to more than 4. Further evaluation by Dr. Rai. DW Dr Carpio and RN Subjective Subjective In ICU on vent since second surgery with small bowel resection for gangrenous bowl.Off pressors. Mildly tachycardic but alert and responsive. Objective Last 24 Hour Vital Signs Date Time Temp Pulse Resp B/P Pulse Ox O2 Delivery O2 Flow Rate FiO2 07/28/16 07:25 99 21 35 07/28/16 07:00 98 20 124/70 100 Mechanical Ventilator 40 07/28/16 06:00 99 19 122/64 99 Mechanical Ventilator 40 07/28/16 05:24 102 25 40 07/28/16 05:00 99 22 122/78 100 Mechanical Ventilator 40 07/28/16 04:00 98.9 97 21 127/79 100 Mechanical Ventilator 40 07/28/16 04:00 97 07/28/16 03:30 96 25 60 07/28/16 03:00 99 21 118/81 100 Mechanical Ventilator 60 07/28/16 02:00 106 23 123/80 100 Mechanical Ventilator 60 07/28/16 01:27 104 21 80 07/28/16 01:00 112 22 146/75 100 Mechanical Ventilator 80 07/28/16 00:30 114 19 149/81 100 Mechanical Ventilator 80 07/28/16 00:00 120 16 175/55 100 Mechanical Ventilator 80 07/28/16 00:00 120 07/27/16 23:30 98.7 108 17 121/53 100 Mechanical Ventilator 100 07/27/16 23:20 110 16 100 07/27/16 23:17 98 16 100 07/27/16 19:34 123 20 121/53 98 Room Air 07/27/16 19:00 120 20 110/81 99 Room Air 07/27/16 18:00 115 20 103/75 97 Room Air 07/27/16 17:00 113 20 81/57 100 Room Air 07/27/16 16:00 118 07/27/16 16:00 97.3 117 20 94/53 98 Room Air 07/27/16 15:22 97.9 07/27/16 15:00 120 21 86/43 96 Room Air 07/27/16 14:00 113 16 87/62 98 Room Air 07/27/16 13:00 117 17 93/64 98 Room Air 07/27/16 12:57 97.9 118 17 89/59 97 Room Air Intake and Output 07/27/16 07/28/16 18:59 06:59 Intake Total 350 ml 2225 ml Output Total 410 ml 545 ml Balance -60 ml 1680 ml IV Total 350 ml 2225 ml Output Urine Total 410 ml 345 ml Gastric Drainage Total 100 ml Drainage Total 100 ml Laboratory Tests Test 07/27/16 14:39 07/27/16 19:00 07/27/16 23:50 07/28/16 05:00 Arterial Blood pH 7.290 (7.350-7.450) Arterial Blood Partial Pressure CO2 35.3 mmHg (35.0-45.0) Arterial Blood Partial Pressure O2 78.0 mmHg (75.0-100.0) Arterial Blood HCO3 16.7 mmol/L (22.0-26.0) L Arterial Blood Oxygen Saturation 94.0 % (92.0-98.0) Arterial Blood Base Excess -8.9 Oliver Test White Blood Count 22.2 K/UL (4.8-10.8) *H 9.9 K/UL (4.8-10.8) # 9.0 K/UL (4.8-10.8) Red Blood Count 4.57 M/UL (4.70-6.10) L 3.90 M/UL (4.70-6.10) L 3.54 M/UL (4.70-6.10) L Hemoglobin 14.2 G/DL (14.2-18.0) 12.2 G/DL (14.2-18.0) L 10.9 G/DL (14.2-18.0) L Hematocrit 42.4 % (42.0-52.0) 35.6 % (42.0-52.0) L 32.8 % (42.0-52.0) L Mean Corpuscular Volume 93 FL (80-99) 91 FL (80-99) 92 FL (80-99) Mean Corpuscular Hemoglobin 31.0 PG (27.0-31.0) 31.3 PG (27.0-31.0) H 30.8 PG (27.0-31.0) Mean Corpuscular Hemoglobin Concent 33.4 G/DL (32.0-36.0) 34.3 G/DL (32.0-36.0) 33.3 G/DL (32.0-36.0) Red Cell Distribution Width 12.7 % (11.6-14.8) 12.6 % (11.6-14.8) 12.4 % (11.6-14.8) Platelet Count 219 K/UL (150-450) 161 K/UL (150-450) 149 K/UL (150-450) L Mean Platelet Volume 7.6 FL (6.5-10.1) 8.6 FL (6.5-10.1) 8.2 FL (6.5-10.1) Neutrophils (%) (Auto) % (45.0-75.0) 81.5 % (45.0-75.0) H 81.3 % (45.0-75.0) H Lymphocytes (%) (Auto) % (20.0-45.0) 11.3 % (20.0-45.0) L 8.8 % (20.0-45.0) L Monocytes (%) (Auto) % (1.0-10.0) 6.8 % (1.0-10.0) 9.3 % (1.0-10.0) Eosinophils (%) (Auto) % (0.0-3.0) 0.0 % (0.0-3.0) 0.0 % (0.0-3.0) Basophils (%) (Auto) % (0.0-2.0) 0.4 % (0.0-2.0) 0.6 % (0.0-2.0) Differential Total Cells Counted 100 Neutrophils % (Manual) 73 % (45-75) Lymphocytes % (Manual) 9 % (20-45) L Monocytes % (Manual) 11 % (1-10) H Eosinophils % (Manual) 1 % (0-3) Basophils % (Manual) 0 % (0-2) Band Neutrophils 6 % (0-8) Platelet Estimate Adequate Platelet Morphology Normal Red Blood Cell Morphology Normal Sodium Level 136 mEQ/L (135-145) 138 mEQ/L (135-145) 140 mEQ/L (135-145) Potassium Level 5.2 mEQ/L (3.4-4.9) H 6.1 mEQ/L (3.4-4.9) *H 5.0 mEQ/L (3.4-4.9) H Chloride Level 100 mEQ/L (98-107) 101 mEQ/L (98-107) 104 mEQ/L (98-107) Carbon Dioxide Level 15 mEQ/L (20-30) L 17 mEQ/L (20-30) L 19 mEQ/L (20-30) L Anion Gap 21 (5-15) H 20 (5-15) H 17 (5-15) H Blood Urea Nitrogen 40 mg/dL (7-23) H 45 mg/dL (7-23) H 48 mg/dL (7-23) H Creatinine 4.4 mg/dL (0.7-1.2) H 4.3 mg/dL (0.7-1.2) H 4.4 mg/dL (0.7-1.2) H Estimat Glomerular Filtration Rate 13.6 mL/min (>60) 13.9 mL/min (>60) 13.6 mL/min (>60) Glucose Level 178 mg/dL (74-106) H 167 mg/dL (74-106) H 211 mg/dL (74-106) H Osmolality Pending Lactic Acid Level 2.90 mmol/L (0.66-2.22) H 2.70 mmol/L (0.66-2.22) H 2.60 mmol/L (0.66-2.22) H Uric Acid 7.7 mg/dL (3.0-7.5) H 7.1 mg/dL (3.0-7.5) Calcium Level 6.9 mg/dL (8.6-10.2) L 6.9 mg/dL (8.6-10.2) L 7.1 mg/dL (8.6-10.2) L Phosphorus Level 6.7 mg/dL (2.5-4.8) H 5.1 mg/dL (2.5-4.8) H Magnesium Level 1.6 mg/dL (1.7-2.5) L 1.6 mg/dL (1.7-2.5) L Total Creatine Kinase 604 U/L (38-174) H 1180 U/L (38-174) H Free Thyroxine 1.69 ng/dL (0.86-1.85) 1.41 ng/dL (0.86-1.85) Cortisol Pending Total Bilirubin 0.6 mg/dL (0.0-1.2) 0.5 mg/dL (0.0-1.2) Aspartate Amino Transf (AST/SGOT) 780 U/L (5-40) H 713 U/L (5-40) H Alanine Aminotransferase (ALT/SGPT) 633 U/L (3-41) H 541 U/L (3-41) H Alkaline Phosphatase 36 U/L (40-129) L 35 U/L (40-129) L Total Protein 4.6 g/dL (6.6-8.7) L 4.4 g/dL (6.6-8.7) L Albumin 2.8 g/dL (3.5-5.2) L 2.5 g/dL (3.5-5.2) L Globulin 1.8 g/dL 1.9 g/dL Albumin/Globulin Ratio 1.5 (1.0-2.7) 1.3 (1.0-2.7) Thyroid Stimulating Hormone (TSH) 1.070 uIU/mL (0.300-4.500) 0.590 uIU/mL (0.300-4.500) Free Triiodothyronine 1.6 pg/mL (2.3-4.2) L Hemoglobin A1c 5.6 % (< 6.0) Gamma Glutamyl Transpeptidase 26 U/L (8-61) Troponin I 1.35 ng/mL (<=0.30) *H C-Reactive Protein, Quantitative 12.6 mg/dL (< 0.5) H Pro-B-Type Natriuretic Peptide 1040 pg/mL (0-125) H Triglycerides Level 89 mg/dL (< 150) Cholesterol Level 95 mg/dL (< 200) LDL Cholesterol 46 mg/dL (60-99) L HDL Cholesterol 31 mg/dL (> 60) Cholesterol/HDL Ratio 3.1 (3.3-4.4) L Test 07/28/16 07:20 07/28/16 09:59 Urine Color Pale yellow Urine Appearance Slightly cloudy Urine pH 5 (4.5-8.0) Urine Specific [place] 1.015 (1.005-1.035) Urine Protein 3+ (NEGATIVE) H Urine Glucose (UA) 1+ (NEGATIVE) H Urine Ketones Negative (NEGATIVE) Urine Occult Blood 5+ (NEGATIVE) H Urine Nitrite Negative (NEGATIVE) Urine Bilirubin Negative (NEGATIVE) Urine Urobilinogen Normal MG/DL (0.0-1.0) Urine Leukocyte Esterase Negative (NEGATIVE) Urine RBC 2-4 /HPF (0 - 0) H Urine WBC 0-2 /HPF (0 - 0) Urine Squamous Epithelial Cells Occasional /LPF Urine Amorphous Sediment Few /LPF (NONE) H Urine Bacteria Few /HPF (NONE) Urine Eosinophils None seen Urine Osmolality Pending Urine Random Sodium 50 mmol/L Urine Random Chloride 48 mmol/L Urine Potassium Timed 43 mmol/L Arterial Blood pH 7.417 (7.350-7.450) Arterial Blood Partial Pressure CO2 30.7 mmHg (35.0-45.0) L Arterial Blood Partial Pressure O2 83.5 mmHg (75.0-100.0) Arterial Blood HCO3 19.3 mmol/L (22.0-26.0) L Arterial Blood Oxygen Saturation 95.9 % (92.0-98.0) Arterial Blood Base Excess -4.3 Oliver Test Positive Objective HEAD AND NECK: No JVD. He has an NG-tube.Orally intubated. LUNGS: Coarse rhonchi. CARDIOVASCULAR: Tachycardic S1 and S2 with no gallop or murmur. ABDOMEN: Post median laparotomy.DAKOTA drain. EXTREMITIES: There is no pitting edema. HONEY DUKE Jul 28, 2016 10:47
--- NOTE | 2016-07-28 11:09 | Diagnostic Imaging Report ---
Indication: Chest Pain Comparison: 07/27/16 A single view chest radiograph was obtained. Findings: Endotracheal tube, right jugular central line appear in good position. There is basilar atelectasis present. Nasogastric tube is noted. The tube is entirely in the esophagus and should be advanced much further. Impression: Nasogastric tube suboptimal location. Basilar atelectasis.
--- NOTE | 2016-07-28 11:09 | Pulmonolgy Critical Care Note ---
Critical Care - Asmt/Plan Problems: (1) Septic shock (2) MIGNON (acute kidney injury) (3) SBO (small bowel obstruction) Respiratory: monitor respiratory rate, adjust FIO2, CXR, weaning trial, other - extubate if tolerated Cardiac: continue to monitor HR/BP Renal: F/U I&O, keep IV fluid, check electrolytes Infectious Disease: check cultures, continue antibiotics Gastrointestinal: continue feedings/current rate Endocrine: monitor blood sugar, check TSH, check HgA1C, continue sliding scale insulin Hematologic: transfuse if hgb<8.5 Neurologic: PRN Morphine, keep patient comfortable Affect: PRN ativan Prophylaxis: Heparin Disposition: keep in ICU Notes Reviewed: renal Discussed with: nurses, consultants, case hardenerpayment manager - Objective Last 24 Hour Vital Signs Date Time Temp Pulse Resp B/P Pulse Ox O2 Delivery O2 Flow Rate FiO2 07/28/16 07:25 99 21 35 07/28/16 07:00 98 20 124/70 100 Mechanical Ventilator 40 07/28/16 06:00 99 19 122/64 99 Mechanical Ventilator 40 07/28/16 05:24 102 25 40 07/28/16 05:00 99 22 122/78 100 Mechanical Ventilator 40 07/28/16 04:00 98.9 97 21 127/79 100 Mechanical Ventilator 40 07/28/16 04:00 97 07/28/16 03:30 96 25 60 07/28/16 03:00 99 21 118/81 100 Mechanical Ventilator 60 07/28/16 02:00 106 23 123/80 100 Mechanical Ventilator 60 07/28/16 01:27 104 21 80 07/28/16 01:00 112 22 146/75 100 Mechanical Ventilator 80 07/28/16 00:30 114 19 149/81 100 Mechanical Ventilator 80 07/28/16 00:00 120 16 175/55 100 Mechanical Ventilator 80 07/28/16 00:00 120 07/27/16 23:30 98.7 108 17 121/53 100 Mechanical Ventilator 100 07/27/16 23:20 110 16 100 07/27/16 23:17 98 16 100 07/27/16 19:34 123 20 121/53 98 Room Air 07/27/16 19:00 120 20 110/81 99 Room Air 07/27/16 18:00 115 20 103/75 97 Room Air 07/27/16 17:00 113 20 81/57 100 Room Air 07/27/16 16:00 118 07/27/16 16:00 97.3 117 20 94/53 98 Room Air 07/27/16 15:22 97.9 07/27/16 15:00 120 21 86/43 96 Room Air 07/27/16 14:00 113 16 87/62 98 Room Air 07/27/16 13:00 117 17 93/64 98 Room Air 07/27/16 12:57 97.9 118 17 89/59 97 Room Air Status: awake Condition: critical, grave HEENT: atraumatic, normocephalic Lungs: clear Heart: HR/BP stable, HR/BP unstable Abdomen: soft, non-tender, feeding tube Extremities: no C/C/E, edema Decubiti: location Critical Care - Subjective ROS Limited/Unobtainable: Yes ICU Day: 2 Intubation Day: 2 Interval Events: pt underwent laparotomy last night, had ischemic bowel. looks comfortable now. Condition: critical EKG Rhythm: Sinus Rhythm FI02: 35 Vent Support Breath Rate: 14 Vent Support Mode: AC Vent Tidal Volume: 600 Sputum Amount: Small PIP: 21 Fluids: NS 100 cc/hour Drips: none I&O: Intake and Output 07/27/16 07/28/16 19:00 07:00 Intake Total 1550 ml 1175 ml Output Total 410 ml 605 ml Balance 1140 ml 570 ml IV Total 1550 ml 1175 ml Output Urine Total 410 ml 405 ml Gastric Drainage Total 100 ml Drainage Total 100 ml CXR: ET too high ET-Tube: 8.5 ET Position: 20 Labs: Laboratory Tests Test 07/27/16 14:39 07/27/16 19:00 07/27/16 23:50 07/28/16 05:00 Arterial Blood pH 7.290 (7.350-7.450) Arterial Blood Partial Pressure CO2 35.3 mmHg (35.0-45.0) Arterial Blood Partial Pressure O2 78.0 mmHg (75.0-100.0) Arterial Blood HCO3 16.7 mmol/L (22.0-26.0) L Arterial Blood Oxygen Saturation 94.0 % (92.0-98.0) Arterial Blood Base Excess -8.9 Oliver Test White Blood Count 22.2 K/UL (4.8-10.8) *H 9.9 K/UL (4.8-10.8) # 9.0 K/UL (4.8-10.8) Red Blood Count 4.57 M/UL (4.70-6.10) L 3.90 M/UL (4.70-6.10) L 3.54 M/UL (4.70-6.10) L Hemoglobin 14.2 G/DL (14.2-18.0) 12.2 G/DL (14.2-18.0) L 10.9 G/DL (14.2-18.0) L Hematocrit 42.4 % (42.0-52.0) 35.6 % (42.0-52.0) L 32.8 % (42.0-52.0) L Mean Corpuscular Volume 93 FL (80-99) 91 FL (80-99) 92 FL (80-99) Mean Corpuscular Hemoglobin 31.0 PG (27.0-31.0) 31.3 PG (27.0-31.0) H 30.8 PG (27.0-31.0) Mean Corpuscular Hemoglobin Concent 33.4 G/DL (32.0-36.0) 34.3 G/DL (32.0-36.0) 33.3 G/DL (32.0-36.0) Red Cell Distribution Width 12.7 % (11.6-14.8) 12.6 % (11.6-14.8) 12.4 % (11.6-14.8) Platelet Count 219 K/UL (150-450) 161 K/UL (150-450) 149 K/UL (150-450) L Mean Platelet Volume 7.6 FL (6.5-10.1) 8.6 FL (6.5-10.1) 8.2 FL (6.5-10.1) Neutrophils (%) (Auto) % (45.0-75.0) 81.5 % (45.0-75.0) H 81.3 % (45.0-75.0) H Lymphocytes (%) (Auto) % (20.0-45.0) 11.3 % (20.0-45.0) L 8.8 % (20.0-45.0) L Monocytes (%) (Auto) % (1.0-10.0) 6.8 % (1.0-10.0) 9.3 % (1.0-10.0) Eosinophils (%) (Auto) % (0.0-3.0) 0.0 % (0.0-3.0) 0.0 % (0.0-3.0) Basophils (%) (Auto) % (0.0-2.0) 0.4 % (0.0-2.0) 0.6 % (0.0-2.0) Differential Total Cells Counted 100 Neutrophils % (Manual) 73 % (45-75) Lymphocytes % (Manual) 9 % (20-45) L Monocytes % (Manual) 11 % (1-10) H Eosinophils % (Manual) 1 % (0-3) Basophils % (Manual) 0 % (0-2) Band Neutrophils 6 % (0-8) Platelet Estimate Adequate Platelet Morphology Normal Red Blood Cell Morphology Normal Sodium Level 136 mEQ/L (135-145) 138 mEQ/L (135-145) 140 mEQ/L (135-145) Potassium Level 5.2 mEQ/L (3.4-4.9) H 6.1 mEQ/L (3.4-4.9) *H 5.0 mEQ/L (3.4-4.9) H Chloride Level 100 mEQ/L (98-107) 101 mEQ/L (98-107) 104 mEQ/L (98-107) Carbon Dioxide Level 15 mEQ/L (20-30) L 17 mEQ/L (20-30) L 19 mEQ/L (20-30) L Anion Gap 21 (5-15) H 20 (5-15) H 17 (5-15) H Blood Urea Nitrogen 40 mg/dL (7-23) H 45 mg/dL (7-23) H 48 mg/dL (7-23) H Creatinine 4.4 mg/dL (0.7-1.2) H 4.3 mg/dL (0.7-1.2) H 4.4 mg/dL (0.7-1.2) H Estimat Glomerular Filtration Rate 13.6 mL/min (>60) 13.9 mL/min (>60) 13.6 mL/min (>60) Glucose Level 178 mg/dL (74-106) H 167 mg/dL (74-106) H 211 mg/dL (74-106) H Osmolality Pending Lactic Acid Level 2.90 mmol/L (0.66-2.22) H 2.70 mmol/L (0.66-2.22) H 2.60 mmol/L (0.66-2.22) H Uric Acid 7.7 mg/dL (3.0-7.5) H 7.1 mg/dL (3.0-7.5) Calcium Level 6.9 mg/dL (8.6-10.2) L 6.9 mg/dL (8.6-10.2) L 7.1 mg/dL (8.6-10.2) L Phosphorus Level 6.7 mg/dL (2.5-4.8) H 5.1 mg/dL (2.5-4.8) H Magnesium Level 1.6 mg/dL (1.7-2.5) L 1.6 mg/dL (1.7-2.5) L Total Creatine Kinase 604 U/L (38-174) H 1180 U/L (38-174) H Free Thyroxine 1.69 ng/dL (0.86-1.85) 1.41 ng/dL (0.86-1.85) Cortisol Pending Total Bilirubin 0.6 mg/dL (0.0-1.2) 0.5 mg/dL (0.0-1.2) Aspartate Amino Transf (AST/SGOT) 780 U/L (5-40) H 713 U/L (5-40) H Alanine Aminotransferase (ALT/SGPT) 633 U/L (3-41) H 541 U/L (3-41) H Alkaline Phosphatase 36 U/L (40-129) L 35 U/L (40-129) L Total Protein 4.6 g/dL (6.6-8.7) L 4.4 g/dL (6.6-8.7) L Albumin 2.8 g/dL (3.5-5.2) L 2.5 g/dL (3.5-5.2) L Globulin 1.8 g/dL 1.9 g/dL Albumin/Globulin Ratio 1.5 (1.0-2.7) 1.3 (1.0-2.7) Thyroid Stimulating Hormone (TSH) 1.070 uIU/mL (0.300-4.500) 0.590 uIU/mL (0.300-4.500) Free Triiodothyronine 1.6 pg/mL (2.3-4.2) L Hemoglobin A1c 5.6 % (< 6.0) Gamma Glutamyl Transpeptidase 26 U/L (8-61) Troponin I 1.35 ng/mL (<=0.30) *H C-Reactive Protein, Quantitative 12.6 mg/dL (< 0.5) H Pro-B-Type Natriuretic Peptide 1040 pg/mL (0-125) H Triglycerides Level 89 mg/dL (< 150) Cholesterol Level 95 mg/dL (< 200) LDL Cholesterol 46 mg/dL (60-99) L HDL Cholesterol 31 mg/dL (> 60) Cholesterol/HDL Ratio 3.1 (3.3-4.4) L Test 07/28/16 07:20 07/28/16 09:59 Urine Color Pale yellow Urine Appearance Slightly cloudy Urine pH 5 (4.5-8.0) Urine Specific [place] 1.015 (1.005-1.035) Urine Protein 3+ (NEGATIVE) H Urine Glucose (UA) 1+ (NEGATIVE) H Urine Ketones Negative (NEGATIVE) Urine Occult Blood 5+ (NEGATIVE) H Urine Nitrite Negative (NEGATIVE) Urine Bilirubin Negative (NEGATIVE) Urine Urobilinogen Normal MG/DL (0.0-1.0) Urine Leukocyte Esterase Negative (NEGATIVE) Urine RBC 2-4 /HPF (0 - 0) H Urine WBC 0-2 /HPF (0 - 0) Urine Squamous Epithelial Cells Occasional /LPF Urine Amorphous Sediment Few /LPF (NONE) H Urine Bacteria Few /HPF (NONE) Urine Eosinophils None seen Urine Osmolality Pending Urine Random Sodium 50 mmol/L Urine Random Chloride 48 mmol/L Urine Potassium Timed 43 mmol/L Arterial Blood pH 7.417 (7.350-7.450) Arterial Blood Partial Pressure CO2 30.7 mmHg (35.0-45.0) L Arterial Blood Partial Pressure O2 83.5 mmHg (75.0-100.0) Arterial Blood HCO3 19.3 mmol/L (22.0-26.0) L Arterial Blood Oxygen Saturation 95.9 % (92.0-98.0) Arterial Blood Base Excess -4.3 Oliver Test Positive MAIKEL ESPINOSA Jul 28, 2016 11:09
--- NOTE | 2016-07-28 11:33 | General Progress Note ---
Assessment/Plan Assessment/Plan ASSESSMENT: 1. Leukocytosis. Likely 2/2 underlying infection. Peripheral smear within normal limits 2. Anemia 2/2 chronic disease, has no iron defiicnecy 3. Sepsis, likely contributing to leukocytosis. 4. Abdominal pain due to small bowel obstruction. Surgery is on board following closely. 5. Small bowel obstruction. status post exploratory laparotomy. RECOMMENDATIONS: 1. Monitor counts 2. Check iron panel and ferritin and b12/folate 3. Follow up on Surgery and Infectious Diseases recs 4. Imaging has been reviewed. 5. Transfuse if hgb <7. 6. staff Thank you, Andrew Mendez MD Subjective Constitutional: Reports: no symptoms HEENT: Reports: no symptoms Cardiovascular: Reports: no symptoms Respiratory: Reports: no symptoms Gastrointestinal/Abdominal: Reports: no symptoms Genitourinary: Reports: no symptoms 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: Reports: no symptoms Endocrine: Reports: no symptoms Hematologic/Lymphatic: Reports: anemia Allergies: Coded Allergies: No Known Allergies (Unverified , 07/26/16) Subjective stable, no bleeding reported Objective Last 24 Hour Vital Signs Date Time Temp Pulse Resp B/P Pulse Ox O2 Delivery O2 Flow Rate FiO2 07/28/16 11:00 98 21 35 07/28/16 09:25 99 20 35 07/28/16 07:25 99 21 35 07/28/16 07:00 98 20 124/70 100 Mechanical Ventilator 40 07/28/16 06:00 99 19 122/64 99 Mechanical Ventilator 40 07/28/16 05:24 102 25 40 07/28/16 05:00 99 22 122/78 100 Mechanical Ventilator 40 07/28/16 04:00 98.9 97 21 127/79 100 Mechanical Ventilator 40 07/28/16 04:00 97 07/28/16 03:30 96 25 60 07/28/16 03:00 99 21 118/81 100 Mechanical Ventilator 60 07/28/16 02:00 106 23 123/80 100 Mechanical Ventilator 60 07/28/16 01:27 104 21 80 07/28/16 01:00 112 22 146/75 100 Mechanical Ventilator 80 07/28/16 00:30 114 19 149/81 100 Mechanical Ventilator 80 07/28/16 00:00 120 16 175/55 100 Mechanical Ventilator 80 07/28/16 00:00 120 07/27/16 23:30 98.7 108 17 121/53 100 Mechanical Ventilator 100 07/27/16 23:20 110 16 100 07/27/16 23:17 98 16 100 07/27/16 19:34 123 20 121/53 98 Room Air 07/27/16 19:00 120 20 110/81 99 Room Air 07/27/16 18:00 115 20 103/75 97 Room Air 07/27/16 17:00 113 20 81/57 100 Room Air 07/27/16 16:00 118 07/27/16 16:00 97.3 117 20 94/53 98 Room Air 07/27/16 15:22 97.9 07/27/16 15:00 120 21 86/43 96 Room Air 07/27/16 14:00 113 16 87/62 98 Room Air 07/27/16 13:00 117 17 93/64 98 Room Air 07/27/16 12:57 97.9 118 17 89/59 97 Room Air Intake and Output 07/27/16 07/28/16 19:00 07:00 Intake Total 1550 ml 1175 ml Output Total 410 ml 605 ml Balance 1140 ml 570 ml IV Total 1550 ml 1175 ml Output Urine Total 410 ml 405 ml Gastric Drainage Total 100 ml Drainage Total 100 ml Laboratory Tests 07/27/16 14:39: Arterial Blood pH 7.290L, Arterial Blood Partial Pressure CO2 35.3, Arterial Blood Partial Pressure O2 78.0, Arterial Blood HCO3 16.7L, Arterial Blood Oxygen Saturation 94.0, Arterial Blood Base Excess -8.9, Oliver Test 07/27/16 19:00: White Blood Count 22.2*H, Red Blood Count 4.57L, Hemoglobin 14.2, Hematocrit 42.4, Mean Corpuscular Volume 93, Mean Corpuscular Hemoglobin 31.0, Mean Corpuscular Hemoglobin Concent 33.4, Red Cell Distribution Width 12.7, Platelet Count 219, Mean Platelet Volume 7.6, Neutrophils (%) (Auto) , Lymphocytes (%) ( Auto) , Monocytes (%) (Auto) , Eosinophils (%) (Auto) , Basophils (%) (Auto) , Differential Total Cells Counted 100, Neutrophils % (Manual) 73, Lymphocytes % ( Manual) 9L, Monocytes % (Manual) 11H, Eosinophils % (Manual) 1, Basophils % ( Manual) 0, Band Neutrophils 6, Platelet Estimate Adequate, Platelet Morphology Normal, Red Blood Cell Morphology Normal, Sodium Level 136, Potassium Level 5.2H , Chloride Level 100, Carbon Dioxide Level 15L, Anion Gap 21H, Blood Urea Nitrogen 40H, Creatinine 4.4H, Estimat Glomerular Filtration Rate 13.6, Glucose Level 178H, Osmolality [Pending], Lactic Acid Level 2.90H, Uric Acid 7.7H, Calcium Level 6.9L, Phosphorus Level 6.7H, Magnesium Level 1.6L, Total Creatine Kinase 604H, Free Thyroxine 1.69, Cortisol [Pending] 07/27/16 23:50: White Blood Count 9.9#, Red Blood Count 3.90L, Hemoglobin 12.2L, Hematocrit 35.6L, Mean Corpuscular Volume 91, Mean Corpuscular Hemoglobin 31.3H, Mean Corpuscular Hemoglobin Concent 34.3, Red Cell Distribution Width 12.6, Platelet Count 161, Mean Platelet Volume 8.6, Neutrophils (%) (Auto) 81.5H, Lymphocytes ( %) (Auto) 11.3L, Monocytes (%) (Auto) 6.8, Eosinophils (%) (Auto) 0.0, Basophils (%) (Auto) 0.4, Sodium Level 138, Potassium Level 6.1*H, Chloride Level 101, Carbon Dioxide Level 17L, Anion Gap 20H, Blood Urea Nitrogen 45H, Creatinine 4.3H, Estimat Glomerular Filtration Rate 13.9, Glucose Level 167H, Lactic Acid Level 2.70H, Calcium Level 6.9L, Total Bilirubin 0.6, Aspartate Amino Transf (AST/SGOT) 780H, Alanine Aminotransferase (ALT/SGPT) 633H, Alkaline Phosphatase 36L, Total Protein 4.6L, Albumin 2.8L, Globulin 1.8, Albumin/Globulin Ratio 1.5, Thyroid Stimulating Hormone (TSH) 1.070, Free Triiodothyronine 1.6L 07/28/16 05:00: White Blood Count 9.0, Red Blood Count 3.54L, Hemoglobin 10.9L, Hematocrit 32.8L , Mean Corpuscular Volume 92, Mean Corpuscular Hemoglobin 30.8, Mean Corpuscular Hemoglobin Concent 33.3, Red Cell Distribution Width 12.4, Platelet Count 149L, Mean Platelet Volume 8.2, Neutrophils (%) (Auto) 81.3H, Lymphocytes (%) (Auto) 8.8L, Monocytes (%) (Auto) 9.3, Eosinophils (%) (Auto) 0.0, Basophils (%) (Auto) 0.6, Sodium Level 140, Potassium Level 5.0H, Chloride Level 104, Carbon Dioxide Level 19L, Anion Gap 17H, Blood Urea Nitrogen 48H, Creatinine 4.4H, Estimat Glomerular Filtration Rate 13.6, Glucose Level 211H, Lactic Acid Level 2.60H, Uric Acid 7.1, Calcium Level 7.1L, Phosphorus Level 5.1H, Magnesium Level 1.6L, Total Creatine Kinase 1180H, Free Thyroxine 1.41, Total Bilirubin 0.5, Aspartate Amino Transf (AST/SGOT) 713H, Alanine Aminotransferase (ALT/SGPT) 541H, Alkaline Phosphatase 35L, Total Protein 4.4L, Albumin 2.5L, Globulin 1.9, Albumin/Globulin Ratio 1.3, Thyroid Stimulating Hormone (TSH) 0.590, Hemoglobin A1c 5.6, Gamma Glutamyl Transpeptidase 26, Troponin I 1.35*H, C-Reactive Protein, Quantitative 12.6H, Pro-B-Type Natriuretic Peptide 1040H, Triglycerides Level 89, Cholesterol Level 95, LDL Cholesterol 46L, HDL Cholesterol 31, Cholesterol/HDL Ratio 3.1L 07/28/16 07:20: Urine Color Pale yellow, Urine Appearance Slightly cloudy, Urine pH 5, Urine Specific [place] 1.015, Urine Protein 3+H, Urine Glucose (UA) 1+H, Urine Ketones Negative, Urine Occult Blood 5+H, Urine Nitrite Negative, Urine Bilirubin Negative, Urine Urobilinogen Normal, Urine Leukocyte Esterase Negative , Urine RBC 2-4H, Urine WBC 0-2, Urine Squamous Epithelial Cells Occasional, Urine Amorphous Sediment FewH, Urine Bacteria Few, Urine Eosinophils None seen, Urine Osmolality [Pending], Urine Random Sodium 50, Urine Random Chloride 48, Urine Potassium Timed 43 07/28/16 09:59: Arterial Blood pH 7.417, Arterial Blood Partial Pressure CO2 30.7L, Arterial Blood Partial Pressure O2 83.5, Arterial Blood HCO3 19.3L, Arterial Blood Oxygen Saturation 95.9, Arterial Blood Base Excess -4.3, Oliver Test Positive Height (Feet): 5 Height (Inches): 6.00 Weight (Pounds): 162 General Appearance: alert EENT: TMs normal Neck: supple Cardiovascular: regular rhythm Respiratory/Chest: lungs clear Abdomen: normal bowel sounds Extremities: normal range of motion Edema: 1+ Leg (L), 1+ Leg (R) Edema: mild edema Neurologic: alert Skin: warm/dry Andrew Mendez Jul 28, 2016 11:33
[2016-07-28 14:03] LABS: ABG PCO2 29.9 mmHg (35.0-45.0)
[2016-07-28 14:04] LABS: ABG ALLEN TEST POSITIVE; ABG BASE EXCESS -6.4
--- NOTE | 2016-07-28 14:15 | Diagnostic Imaging Report ---
Indication: Chest Pain Comparison: None A single view chest radiograph was obtained. Findings: NG tube is high in location above the GE junction and should be advanced further. Mild basilar atelectasis demonstrated on this exam with low lung volumes. Heart size is prominent. Impression: Basal atelectasis. Nasogastric tube needs repositioning
[2016-07-28] MEDS ORDERED: D5NS 1,000 ML IV SCH (15:30)
[2016-07-28] MEDS ORDERED: Tubing IV Secondary IV ONE ×2 (17:45→18:37)
[2016-07-28] MEDS ORDERED: D5 1/2NS 1000ml IV ONE (17:45)
[2016-07-28] MEDS ORDERED: NS Irrig 1000ml ONE ×2 (17:45→18:37)
[2016-07-28] MEDS ORDERED: NS 550ML IV ONE (18:37)
[2016-07-28] MEDS ORDERED: NS 275ml ONE (18:37)
--- NOTE | 2016-07-28 19:43 | Infectious Diseases Prog Note ---
Assessment/Plan Problems: (1) Septic shock Assessment & Plan: improving, with IVF and pressor, will continue clindamycin for MRSA coverage and zosyn for now, titrate pressors to keep SBP>100, monitor in ICU, await blood culture (2) SBO (small bowel obstruction) Assessment & Plan: S/P EX LAP , monitor lactic acid, and lipase , continue IVF , and pain management , general surgery is following (3) Abdominal pain Assessment & Plan: continue pain management, surgery is following (4) MIGNON (acute kidney injury) Assessment & Plan: due to sepsis and hypotension, continue IVF, titrate pressors to keep SBP >100, renal is following Subjective Constitutional: Reports: no symptoms HEENT: Reports: no symptoms Respiratory: Reports: no symptoms Cardiovascular: Reports: no symptoms Gastrointestinal/Abdominal: Reports: bloating, constipation Allergies: Coded Allergies: No Known Allergies (Unverified , 07/26/16) All Systems: reviewed and negative except above Subjective no fever or chills, no cough or SOB, has mild abdominal pain, no bowel movement. Objective Vital Signs Last 24 Hour Vital Signs Date Time Temp Pulse Resp B/P Pulse Ox O2 Delivery O2 Flow Rate FiO2 07/28/16 18:00 103 27 142/72 99 Nasal Cannula 3.0 07/28/16 17:00 104 27 147/75 100 Nasal Cannula 3.0 07/28/16 16:43 109 07/28/16 16:00 98.6 107 23 143/86 100 Nasal Cannula 3.0 07/28/16 15:00 111 27 142/82 100 Nasal Cannula 3.0 07/28/16 14:00 101 27 142/76 100 Nasal Cannula 3.0 07/28/16 13:00 101 20 105/87 100 Nasal Cannula 3.0 07/28/16 12:00 100 07/28/16 12:00 98.9 98 20 153/75 100 Nasal Cannula 3.0 07/28/16 12:00 99 Nasal Cannula 3.0 32 07/28/16 12:00 Nasal Cannula 3.0 32 07/28/16 11:00 98 21 35 07/28/16 11:00 108 20 148/72 100 Mechanical Ventilator 40 07/28/16 10:00 104 20 134/75 100 Mechanical Ventilator 40 07/28/16 09:25 99 20 35 07/28/16 09:00 98 20 127/70 100 Mechanical Ventilator 40 07/28/16 08:00 97.7 97 23 125/66 100 Mechanical Ventilator 40 07/28/16 08:00 98 07/28/16 07:25 99 21 35 07/28/16 07:00 98 20 124/70 100 Mechanical Ventilator 40 07/28/16 06:00 99 19 122/64 99 Mechanical Ventilator 40 07/28/16 05:24 102 25 40 07/28/16 05:00 99 22 122/78 100 Mechanical Ventilator 40 07/28/16 04:00 98.9 97 21 127/79 100 Mechanical Ventilator 40 07/28/16 04:00 97 07/28/16 03:30 96 25 60 07/28/16 03:00 99 21 118/81 100 Mechanical Ventilator 60 07/28/16 02:00 106 23 123/80 100 Mechanical Ventilator 60 07/28/16 01:27 104 21 80 07/28/16 01:00 112 22 146/75 100 Mechanical Ventilator 80 07/28/16 00:30 114 19 149/81 100 Mechanical Ventilator 80 07/28/16 00:00 120 16 175/55 100 Mechanical Ventilator 80 07/28/16 00:00 120 07/27/16 23:30 98.7 108 17 121/53 100 Mechanical Ventilator 100 07/27/16 23:20 110 16 100 07/27/16 23:17 98 16 100 Height (Feet): 5 Height (Inches): 6.00 Weight (Pounds): 162 General Appearance: WD/WN, no acute distress HEENT: normocephalic, atraumatic, anicteric, mucous membranes moist Respiratory/Chest: chest wall non-tender, normal breath sounds, no respiratory distress, no accessory muscle use Cardiovascular: normal peripheral pulses, normal rate, regular rhythm, no gallop/murmur, no JVD Abdomen: no organomegaly, no mass, no scars, absent bowel sounds, distended, other - [place] drainage in the right side with bloody fluids Extremities: no cyanosis, no clubbing Skin: no rash Microbiology Date/Time Source Procedure Growth Status 07/27/16 21:00 Abdominal Fluid Gram Stain - Final Resulted 07/27/16 21:00 Abdominal Fluid Aerobic Culture Pending Resulted 07/27/16 21:00 Abdominal Fluid Anaerobic Culture Pending Resulted Laboratory Tests Test 07/27/16 23:50 1/13/17 05:00 07/28/16 06:30 07/28/16 07:20 White Blood Count 9.9 K/UL (4.8-10.8) # 9.0 K/UL (4.8-10.8) Red Blood Count 3.90 M/UL (4.70-6.10) L 3.54 M/UL (4.70-6.10) L Hemoglobin 12.2 G/DL (14.2-18.0) L 10.9 G/DL (14.2-18.0) L Hematocrit 35.6 % (42.0-52.0) L 32.8 % (42.0-52.0) L Mean Corpuscular Volume 91 FL (80-99) 92 FL (80-99) Mean Corpuscular Hemoglobin 31.3 PG (27.0-31.0) H 30.8 PG (27.0-31.0) Mean Corpuscular Hemoglobin Concent 34.3 G/DL (32.0-36.0) 33.3 G/DL (32.0-36.0) Red Cell Distribution Width 12.6 % (11.6-14.8) 12.4 % (11.6-14.8) Platelet Count 161 K/UL (150-450) 149 K/UL (150-450) L Mean Platelet Volume 8.6 FL (6.5-10.1) 8.2 FL (6.5-10.1) Neutrophils (%) (Auto) 81.5 % (45.0-75.0) H 81.3 % (45.0-75.0) H Lymphocytes (%) (Auto) 11.3 % (20.0-45.0) L 8.8 % (20.0-45.0) L Monocytes (%) (Auto) 6.8 % (1.0-10.0) 9.3 % (1.0-10.0) Eosinophils (%) (Auto) 0.0 % (0.0-3.0) 0.0 % (0.0-3.0) Basophils (%) (Auto) 0.4 % (0.0-2.0) 0.6 % (0.0-2.0) Sodium Level 138 mEQ/L (135-145) 140 mEQ/L (135-145) Potassium Level 6.1 mEQ/L (3.4-4.9) *H 5.0 mEQ/L (3.4-4.9) H Chloride Level 101 mEQ/L (98-107) 104 mEQ/L (98-107) Carbon Dioxide Level 17 mEQ/L (20-30) L 19 mEQ/L (20-30) L Anion Gap 20 (5-15) H 17 (5-15) H Blood Urea Nitrogen 45 mg/dL (7-23) H 48 mg/dL (7-23) H Creatinine 4.3 mg/dL (0.7-1.2) H 4.4 mg/dL (0.7-1.2) H Estimat Glomerular Filtration Rate 13.9 mL/min (>60) 13.6 mL/min (>60) Glucose Level 167 mg/dL (74-106) H 211 mg/dL (74-106) H Lactic Acid Level 2.70 mmol/L (0.66-2.22) H 2.60 mmol/L (0.66-2.22) H Calcium Level 6.9 mg/dL (8.6-10.2) L 7.1 mg/dL (8.6-10.2) L Total Bilirubin 0.6 mg/dL (0.0-1.2) 0.5 mg/dL (0.0-1.2) Aspartate Amino Transf (AST/SGOT) 780 U/L (5-40) H 713 U/L (5-40) H Alanine Aminotransferase (ALT/SGPT) 633 U/L (3-41) H 541 U/L (3-41) H Alkaline Phosphatase 36 U/L (40-129) L 35 U/L (40-129) L Total Protein 4.6 g/dL (6.6-8.7) L 4.4 g/dL (6.6-8.7) L Albumin 2.8 g/dL (3.5-5.2) L 2.5 g/dL (3.5-5.2) L Globulin 1.8 g/dL 1.9 g/dL Albumin/Globulin Ratio 1.5 (1.0-2.7) 1.3 (1.0-2.7) Thyroid Stimulating Hormone (TSH) 1.070 uIU/mL (0.300-4.500) 0.590 uIU/mL (0.300-4.500) Free Triiodothyronine 1.6 pg/mL (2.3-4.2) L Hemoglobin A1c 5.6 % (< 6.0) Uric Acid 7.1 mg/dL (3.0-7.5) Phosphorus Level 5.1 mg/dL (2.5-4.8) H Magnesium Level 1.6 mg/dL (1.7-2.5) L Gamma Glutamyl Transpeptidase 26 U/L (8-61) Total Creatine Kinase 1180 U/L (38-174) H Troponin I 1.35 ng/mL (<=0.30) *H C-Reactive Protein, Quantitative 12.6 mg/dL (< 0.5) H Pro-B-Type Natriuretic Peptide 1040 pg/mL (0-125) H Triglycerides Level 89 mg/dL (< 150) Cholesterol Level 95 mg/dL (< 200) LDL Cholesterol 46 mg/dL (60-99) L HDL Cholesterol 31 mg/dL (> 60) Cholesterol/HDL Ratio 3.1 (3.3-4.4) L Free Thyroxine 1.41 ng/dL (0.86-1.85) Reticulocyte Count 1.0 % (0.0-2.0) Urine Color Pale yellow Urine Appearance Slightly cloudy Urine pH 5 (4.5-8.0) Urine Specific [place] 1.015 (1.005-1.035) Urine Protein 3+ (NEGATIVE) H Urine Glucose (UA) 1+ (NEGATIVE) H Urine Ketones Negative (NEGATIVE) Urine Occult Blood 5+ (NEGATIVE) H Urine Nitrite Negative (NEGATIVE) Urine Bilirubin Negative (NEGATIVE) Urine Urobilinogen Normal MG/DL (0.0-1.0) Urine Leukocyte Esterase Negative (NEGATIVE) Urine RBC 2-4 /HPF (0 - 0) H Urine WBC 0-2 /HPF (0 - 0) Urine Squamous Epithelial Cells Occasional /LPF Urine Amorphous Sediment Few /LPF (NONE) H Urine Bacteria Few /HPF (NONE) Urine Eosinophils None seen Urine Osmolality Pending Urine Random Sodium 50 mmol/L Urine Random Chloride 48 mmol/L Urine Potassium Timed 43 mmol/L Test 07/28/16 09:59 07/28/16 13:00 Arterial Blood pH 7.417 (7.350-7.450) 7.387 (7.350-7.450) Arterial Blood Partial Pressure CO2 30.7 mmHg (35.0-45.0) L 29.9 mmHg (35.0-45.0) L Arterial Blood Partial Pressure O2 83.5 mmHg (75.0-100.0) 98.7 mmHg (75.0-100.0) Arterial Blood HCO3 19.3 mmol/L (22.0-26.0) L 17.6 mmol/L (22.0-26.0) L Arterial Blood Oxygen Saturation 95.9 % (92.0-98.0) 96.7 % (92.0-98.0) Arterial Blood Base Excess -4.3 -6.4 Oliver Test Positive Positive Current Medications Medications (Trade) Dose Ordered Sig/Arti Route PRN Reason Start Time Stop Time Status Last Admin Dose Admin Acetaminophen 650 mg 650 mg Q4H PRN RECTAL FEVER 07/26/16 17:45 08/25/16 17:44 Clindamycin HCl/ Dextrose 50 ml @ 100 mls/hr Q8HR@0400,1200,2000 IV 07/28/16 12:00 08/03/16 18:59 07/28/16 12:00 Dextrose/Sodium Chloride (D5ns) 1,000 ml @ 150 mls/hr Q6H40M IV 07/28/16 12:00 08/27/16 11:59 07/28/16 12:00 Enoxaparin Sodium (Lovenox) 30 mg DAILY SUBQ 07/28/16 09:00 08/27/16 08:59 07/28/16 10:19 Hydromorphone HCl (Dilaudid) 0.5 mg Q3H PRN IVP Pain Score 1-3 07/27/16 22:45 08/03/16 22:44 Hydromorphone HCl (Dilaudid) 1 mg Q3H PRN IVP pain score 4-6 07/27/16 22:45 08/03/16 22:44 Hydromorphone HCl (Dilaudid) 2 mg Q3H PRN IVP pain score 7-10 07/27/16 22:45 08/03/16 22:44 07/28/16 18:01 Metoclopramide HCl 10 mg 10 mg Q6H PRN IVP Nausea & Vomiting 07/27/16 22:45 08/26/16 22:44 Norepinephrine Bitartrate 4 mg/ Dextrose 250 ml @ 0 mls/hr Q24H IV 07/27/16 21:30 08/26/16 21:29 Ondansetron HCl (Zofran) 4 mg Q6H PRN IVP Nausea & Vomiting 07/27/16 22:45 08/26/16 22:44 Pantoprazole (Protonix) 40 mg Q12HR IVP 07/28/16 21:00 08/27/16 20:59 Piperacillin Sod/ Tazobactam Sod/ Dextrose (Zosyn/D5W 100ml) 100 ml @ 25 mls/hr EVERY 8 HOURS IVPB 07/28/16 06:00 08/04/16 05:59 07/28/16 14:00 Piyush Harris M.D. Jul 28, 2016 19:43
[2016-07-28] MEDS: Pantoprazole Inj IVP SCH (21:09)
--- NOTE | 2016-07-28 22:03 | General Progress Note ---
Assessment/Plan Assessment/Plan Assessment - SBO - septic shock - ATN - abnormal LFt - ? shocked liver - lactic acidosis - s/p ex lap Recommendations NPO IVF pressors abx PPI supportive ICU care surgical f/u no tube feeds Subjective Allergies: Coded Allergies: No Known Allergies (Unverified , 07/26/16) Subjective above all noted patient seen early am today awake and responsive Objective Last 24 Hour Vital Signs Date Time Temp Pulse Resp B/P Pulse Ox O2 Delivery O2 Flow Rate FiO2 07/28/16 21:15 143/86 07/28/16 18:40 Nasal Cannula 3.0 32 07/28/16 18:00 103 27 142/72 99 Nasal Cannula 3.0 07/28/16 17:00 104 27 147/75 100 Nasal Cannula 3.0 07/28/16 16:43 109 07/28/16 16:00 98.6 107 23 143/86 100 Nasal Cannula 3.0 07/28/16 15:00 111 27 142/82 100 Nasal Cannula 3.0 07/28/16 14:00 101 27 142/76 100 Nasal Cannula 3.0 07/28/16 13:00 101 20 105/87 100 Nasal Cannula 3.0 07/28/16 12:00 100 07/28/16 12:00 98.9 98 20 153/75 100 Nasal Cannula 3.0 07/28/16 12:00 99 Nasal Cannula 3.0 32 07/28/16 12:00 Nasal Cannula 3.0 32 07/28/16 11:00 98 21 35 07/28/16 11:00 108 20 148/72 100 Mechanical Ventilator 40 07/28/16 10:00 104 20 134/75 100 Mechanical Ventilator 40 07/28/16 09:25 99 20 35 07/28/16 09:00 98 20 127/70 100 Mechanical Ventilator 40 07/28/16 08:00 97.7 97 23 125/66 100 Mechanical Ventilator 40 07/28/16 08:00 98 07/28/16 07:25 99 21 35 07/28/16 07:00 98 20 124/70 100 Mechanical Ventilator 40 07/28/16 06:00 99 19 122/64 99 Mechanical Ventilator 40 07/28/16 05:24 102 25 40 07/28/16 05:00 99 22 122/78 100 Mechanical Ventilator 40 07/28/16 04:00 98.9 97 21 127/79 100 Mechanical Ventilator 40 07/28/16 04:00 97 07/28/16 03:30 96 25 60 07/28/16 03:00 99 21 118/81 100 Mechanical Ventilator 60 07/28/16 02:00 106 23 123/80 100 Mechanical Ventilator 60 07/28/16 01:27 104 21 80 07/28/16 01:00 112 22 146/75 100 Mechanical Ventilator 80 07/28/16 00:30 114 19 149/81 100 Mechanical Ventilator 80 07/28/16 00:00 120 16 175/55 100 Mechanical Ventilator 80 07/28/16 00:00 120 07/27/16 23:30 98.7 108 17 121/53 100 Mechanical Ventilator 100 07/27/16 23:20 110 16 100 07/27/16 23:17 98 16 100 Intake and Output 07/27/16 07/28/16 19:00 07:00 Intake Total 1550 ml 1175 ml Output Total 410 ml 605 ml Balance 1140 ml 570 ml IV Total 1550 ml 1175 ml Output Urine Total 410 ml 405 ml Gastric Drainage Total 100 ml Drainage Total 100 ml Laboratory Tests 07/27/16 23:50: White Blood Count 9.9#, Red Blood Count 3.90L, Hemoglobin 12.2L, Hematocrit 35.6L, Mean Corpuscular Volume 91, Mean Corpuscular Hemoglobin 31.3H, Mean Corpuscular Hemoglobin Concent 34.3, Red Cell Distribution Width 12.6, Platelet Count 161, Mean Platelet Volume 8.6, Neutrophils (%) (Auto) 81.5H, Lymphocytes ( %) (Auto) 11.3L, Monocytes (%) (Auto) 6.8, Eosinophils (%) (Auto) 0.0, Basophils (%) (Auto) 0.4, Sodium Level 138, Potassium Level 6.1*H, Chloride Level 101, Carbon Dioxide Level 17L, Anion Gap 20H, Blood Urea Nitrogen 45H, Creatinine 4.3H, Estimat Glomerular Filtration Rate 13.9, Glucose Level 167H, Lactic Acid Level 2.70H, Calcium Level 6.9L, Total Bilirubin 0.6, Aspartate Amino Transf (AST/SGOT) 780H, Alanine Aminotransferase (ALT/SGPT) 633H, Alkaline Phosphatase 36L, Total Protein 4.6L, Albumin 2.8L, Globulin 1.8, Albumin/Globulin Ratio 1.5, Thyroid Stimulating Hormone (TSH) 1.070, Free Triiodothyronine 1.6L 07/28/16 05:00: White Blood Count 9.0, Red Blood Count 3.54L, Hemoglobin 10.9L, Hematocrit 32.8L , Mean Corpuscular Volume 92, Mean Corpuscular Hemoglobin 30.8, Mean Corpuscular Hemoglobin Concent 33.3, Red Cell Distribution Width 12.4, Platelet Count 149L, Mean Platelet Volume 8.2, Neutrophils (%) (Auto) 81.3H, Lymphocytes (%) (Auto) 8.8L, Monocytes (%) (Auto) 9.3, Eosinophils (%) (Auto) 0.0, Basophils (%) (Auto) 0.6, Sodium Level 140, Potassium Level 5.0H, Chloride Level 104, Carbon Dioxide Level 19L, Anion Gap 17H, Blood Urea Nitrogen 48H, Creatinine 4.4H, Estimat Glomerular Filtration Rate 13.6, Glucose Level 211H, Lactic Acid Level 2.60H, Calcium Level 7.1L, Total Bilirubin 0.5, Aspartate Amino Transf (AST/SGOT) 713H, Alanine Aminotransferase (ALT/SGPT) 541H, Alkaline Phosphatase 35L, Total Protein 4.4L, Albumin 2.5L, Globulin 1.9, Albumin/Globulin Ratio 1.3, Thyroid Stimulating Hormone (TSH) 0.590, Hemoglobin A1c 5.6, Uric Acid 7.1, Phosphorus Level 5.1H, Magnesium Level 1.6L, Gamma Glutamyl Transpeptidase 26, Total Creatine Kinase 1180H, Troponin I 1.35*H, C- Reactive Protein, Quantitative 12.6H, Pro-B-Type Natriuretic Peptide 1040H, Triglycerides Level 89, Cholesterol Level 95, LDL Cholesterol 46L, HDL Cholesterol 31, Cholesterol/HDL Ratio 3.1L, Free Thyroxine 1.41 07/28/16 06:30: Reticulocyte Count 1.0 07/28/16 07:20: Urine Color Pale yellow, Urine Appearance Slightly cloudy, Urine pH 5, Urine Specific [place] 1.015, Urine Protein 3+H, Urine Glucose (UA) 1+H, Urine Ketones Negative, Urine Occult Blood 5+H, Urine Nitrite Negative, Urine Bilirubin Negative, Urine Urobilinogen Normal, Urine Leukocyte Esterase Negative , Urine RBC 2-4H, Urine WBC 0-2, Urine Squamous Epithelial Cells Occasional, Urine Amorphous Sediment FewH, Urine Bacteria Few, Urine Eosinophils None seen, Urine Osmolality [Pending], Urine Random Sodium 50, Urine Random Chloride 48, Urine Potassium Timed 43 07/28/16 09:59: Arterial Blood pH 7.417, Arterial Blood Partial Pressure CO2 30.7L, Arterial Blood Partial Pressure O2 83.5, Arterial Blood HCO3 19.3L, Arterial Blood Oxygen Saturation 95.9, Arterial Blood Base Excess -4.3, Oliver Test Positive 07/28/16 13:00: Arterial Blood pH 7.387, Arterial Blood Partial Pressure CO2 29.9L, Arterial Blood Partial Pressure O2 98.7, Arterial Blood HCO3 17.6L, Arterial Blood Oxygen Saturation 96.7, Arterial Blood Base Excess -6.4, Oliver Test Positive Height (Feet): 5 Height (Inches): 6.00 Weight (Pounds): 162 Objective WDWN man NCAT supple CTA RR abd mild distended, (+)large abd wound, dressing dry no edema ALVAREZ MARTINEZ Jul 28, 2016 22:03
[2016-07-29] VITALS (16 sets, daily range): BP systolic 111–189; BP diastolic 37–102
[2016-07-29] MEDS: D5NS 1,000 ML IV SCH ×2 (02:08→08:28)
[2016-07-29] MEDS: Clindamycin 600mg 50 ML IV SCH ×3 (04:00→19:53)
[2016-07-29 05:23] LABS: BASOPHILS % (AUTO) 0.3 % (0.0-2.0); EOSINOPHILS % (AUTO) 0.1 % (0.0-3.0); LYMPHOCYTES % (AUTO) 4.7 % (20.0-45.0); MEAN CORPUSCULAR HEMOGLOBIN 30.5 PG (27.0-31.0); MEAN CORPUSCULAR HGB CONC 33.9 G/DL (32.0-36.0); MEAN CORPUSCULAR VOLUME 90 FL (80-99); MEAN PLATELET VOLUME 8.2 FL (6.5-10.1); MONOCYTES % (AUTO) 10.7 % (1.0-10.0); NEUTROPHILS % (AUTO) 84.2 % (45.0-75.0); PLATELET COUNT 142 K/UL (150-450); RED BLOOD COUNT 3.16 M/UL (4.70-6.10); RED CELL DISTRIBUTION WIDTH 12.5 % (11.6-14.8)
[2016-07-29 05:33] LABS: ALANINE AMINOTRANSFERASE 223 U/L (3-41); ANION GAP 16 (5-15); ASPARTATE AMINO TRANSFERASE 176 U/L (5-40); CALCIUM 7.7 mg/dL (8.6-10.2); CARBON DIOXIDE 21 mEQ/L (20-30); CHLORIDE 109 mEQ/L (98-107); CREATININE 4.7 mg/dL (0.7-1.2); CRP QUANT 21.7 mg/dL (< 0.5); GLOMERULAR FILTRATION RATE 12.6 mL/min (>60); HEMOLYSIS 7; LIPASE 11 U/L (< 60); PHOSPHORUS 4.5 mg/dL (2.5-4.8); POTASSIUM 4.4 mEQ/L (3.4-4.9); SODIUM 146 mEQ/L (135-145); TOTAL PROTEIN 4.9 g/dL (6.6-8.7); URIC ACID 7.2 mg/dL (3.0-7.5)
[2016-07-29 05:35] LABS: CALCIUM 7.6 mg/dL (8.6-10.2); CREATININE 4.6 mg/dL (0.7-1.2); GLOMERULAR FILTRATION RATE 12.9 mL/min (>60); POTASSIUM 4.4 mEQ/L (3.4-4.9)
[2016-07-29 05:45] LABS: CKMB 9.4 ng/mL (< 6.7)
[2016-07-29 05:47] LABS: TROPONIN I 0.38 ng/mL (<=0.30)
[2016-07-29] MEDS: Pantoprazole Inj IVP SCH ×2 (08:29→22:19)
--- NOTE | 2016-07-29 08:29 | Diagnostic Imaging Report ---
Indication: Abdominal pain Comparison: None Single view of the abdomen obtained Mildly distended small bowel in the right side of abdomen noted. Patient has had very recent abdominal surgery with skin cristy still noted in the mid and lower abdomen. Canales catheter is present. Impression: Nonspecific mild dilatation of small bowel in the right side the abdomen. The findings are probably due to postoperative ileus. Suggest followup and clinical correlation.
[2016-07-29] MEDS: Enoxaparin 30mg Inj SUBQ SCH (08:30)
--- NOTE | 2016-07-29 08:43 | Pulmonolgy Critical Care Note ---
Critical Care - Asmt/Plan Problems: (1) Septic shock (2) MIGNON (acute kidney injury) (3) SBO (small bowel obstruction) (4) Ileus (5) Enteritis (6) Non-ST elevation (NSTEMI) myocardial infarction Respiratory: adjust FIO2 Cardiac: continue to monitor HR/BP Renal: F/U I&O, keep IV fluid Infectious Disease: check cultures Gastrointestinal: hold feedings Endocrine: monitor blood sugar, continue sliding scale insulin Hematologic: monitor H/H, transfuse if hgb<8.5 Neurologic: PRN Morphine, keep patient comfortable Affect: PRN ativan Time Spent (Minutes): 40 Notes Reviewed: cardio, renal Discussed with: nurses, consultants, family service caseworkermanager area - Objective Last 24 Hour Vital Signs Date Time Temp Pulse Resp B/P Pulse Ox O2 Delivery O2 Flow Rate FiO2 07/29/16 07:00 85 15 158/96 100 Nasal Cannula 3.0 07/29/16 06:00 89 14 146/97 100 Nasal Cannula 3.0 07/29/16 05:00 92 12 111/60 96 Nasal Cannula 3.0 07/29/16 04:00 101 07/29/16 04:00 98.9 92 13 189/102 97 Nasal Cannula 3.0 07/29/16 03:00 95 16 158/89 98 Nasal Cannula 3.0 07/29/16 02:00 94 12 133/80 96 Nasal Cannula 3.0 07/29/16 01:00 97 15 165/83 98 Nasal Cannula 3.0 07/29/16 00:00 95 16 158/89 98 Nasal Cannula 3.0 07/29/16 00:00 122 07/28/16 23:00 98.9 92 11 129/82 96 Nasal Cannula 3.0 07/28/16 22:00 96 13 133/81 98 Nasal Cannula 3.0 07/28/16 21:15 143/86 07/28/16 21:00 96 13 133/81 98 Nasal Cannula 3.0 07/28/16 20:00 97 19 143/86 99 Nasal Cannula 3.0 07/28/16 20:00 136 07/28/16 19:00 98.9 98 27 142/77 99 Nasal Cannula 3.0 07/28/16 18:40 Nasal Cannula 3.0 32 07/28/16 18:40 96 Nasal Cannula 3.0 32 07/28/16 18:00 103 27 142/72 99 Nasal Cannula 3.0 07/28/16 17:00 104 27 147/75 100 Nasal Cannula 3.0 07/28/16 16:43 109 07/28/16 16:00 98.6 107 23 143/86 100 Nasal Cannula 3.0 07/28/16 15:00 111 27 142/82 100 Nasal Cannula 3.0 07/28/16 14:00 101 27 142/76 100 Nasal Cannula 3.0 07/28/16 13:00 101 20 105/87 100 Nasal Cannula 3.0 07/28/16 12:00 100 07/28/16 12:00 98.9 98 20 153/75 100 Nasal Cannula 3.0 07/28/16 12:00 99 Nasal Cannula 3.0 32 07/28/16 12:00 Nasal Cannula 3.0 32 07/28/16 11:00 98 21 35 07/28/16 11:00 108 20 148/72 100 Mechanical Ventilator 40 07/28/16 10:00 104 20 134/75 100 Mechanical Ventilator 40 07/28/16 09:25 99 20 35 07/28/16 09:00 98 20 127/70 100 Mechanical Ventilator 40 Status: awake Condition: critical, improving HEENT: atraumatic, normocephalic Neck: full ROM Lungs: rhonchi Heart: HR/BP stable, regular Abdomen: soft, active bowel sounds, feeding tube Extremities: edema Decubiti: location Micro: Microbiology Date/Time Source Procedure Growth Status 07/27/16 06:10 Blood Blood Culture - Preliminary NO GROWTH AFTER 24 HOURS Resulted 07/27/16 21:00 Abdominal Fluid Gram Stain - Final Resulted 07/27/16 21:00 Abdominal Fluid Aerobic Culture Pending Resulted 07/27/16 21:00 Abdominal Fluid Anaerobic Culture Pending Resulted Critical Care - Subjective ROS Limited/Unobtainable: No ICU Day: 3 Condition: improving EKG Rhythm: Sinus Rhythm FI02: 32 Vent Support Breath Rate: 14 Vent Support Mode: CPAP Vent Tidal Volume: 600 Sputum Amount: Small PIP: 11 Fluids: 1/2 NS 150 cc.hour I&O: Intake and Output 07/28/16 07/29/16 19:00 07:00 Intake Total 1550 ml 1225 ml Output Total 960 ml 990 ml Balance 590 ml 235 ml IV Total 1550 ml 1225 ml Output Urine Total 700 ml 690 ml Gastric Drainage Total 160 ml Drainage Total 100 ml 300 ml CXR: clear ET-Tube: 8.5 ET Position: 20 Labs: Laboratory Tests Test 07/28/16 09:59 07/28/16 13:00 07/29/16 04:00 07/29/16 06:00 Arterial Blood pH 7.417 (7.350-7.450) 7.387 (7.350-7.450) Arterial Blood Partial Pressure CO2 30.7 mmHg (35.0-45.0) L 29.9 mmHg (35.0-45.0) L Arterial Blood Partial Pressure O2 83.5 mmHg (75.0-100.0) 98.7 mmHg (75.0-100.0) Arterial Blood HCO3 19.3 mmol/L (22.0-26.0) L 17.6 mmol/L (22.0-26.0) L Arterial Blood Oxygen Saturation 95.9 % (92.0-98.0) 96.7 % (92.0-98.0) Arterial Blood Base Excess -4.3 -6.4 Oliver Test Positive Positive White Blood Count 10.0 K/UL (4.8-10.8) Red Blood Count 3.16 M/UL (4.70-6.10) L Hemoglobin 9.6 G/DL (14.2-18.0) L Hematocrit 28.4 % (42.0-52.0) L Mean Corpuscular Volume 90 FL (80-99) Mean Corpuscular Hemoglobin 30.5 PG (27.0-31.0) Mean Corpuscular Hemoglobin Concent 33.9 G/DL (32.0-36.0) Red Cell Distribution Width 12.5 % (11.6-14.8) Platelet Count 142 K/UL (150-450) L Mean Platelet Volume 8.2 FL (6.5-10.1) Neutrophils (%) (Auto) 84.2 % (45.0-75.0) H Lymphocytes (%) (Auto) 4.7 % (20.0-45.0) L Monocytes (%) (Auto) 10.7 % (1.0-10.0) H Eosinophils (%) (Auto) 0.1 % (0.0-3.0) Basophils (%) (Auto) 0.3 % (0.0-2.0) Sodium Level 146 mEQ/L (135-145) H Potassium Level 4.4 mEQ/L (3.4-4.9) Chloride Level 110 mEQ/L (98-107) H Carbon Dioxide Level 21 mEQ/L (20-30) Anion Gap 15 (5-15) Blood Urea Nitrogen 55 mg/dL (7-23) H Creatinine 4.6 mg/dL (0.7-1.2) H Estimat Glomerular Filtration Rate 12.9 mL/min (>60) Glucose Level 169 mg/dL (74-106) H Uric Acid 7.2 mg/dL (3.0-7.5) Calcium Level 7.6 mg/dL (8.6-10.2) L Phosphorus Level 4.5 mg/dL (2.5-4.8) Magnesium Level 2.0 mg/dL (1.7-2.5) Total Bilirubin 0.8 mg/dL (0.0-1.2) Gamma Glutamyl Transpeptidase 60 U/L (8-61) Aspartate Amino Transf (AST/SGOT) 176 U/L (5-40) H Alanine Aminotransferase (ALT/SGPT) 223 U/L (3-41) H Alkaline Phosphatase 72 U/L (40-129) Total Creatine Kinase 1041 U/L (38-174) H Creatine Kinase MB 9.4 ng/mL (< 6.7) H Troponin I 0.38 ng/mL (<=0.30) *H C-Reactive Protein, Quantitative 21.7 mg/dL (< 0.5) H Pro-B-Type Natriuretic Peptide 1185 pg/mL (0-125) H Total Protein 4.9 g/dL (6.6-8.7) L Albumin 2.5 g/dL (3.5-5.2) L Globulin 2.4 g/dL Albumin/Globulin Ratio 1.0 (1.0-2.7) Lipase 11 U/L (< 60) Urine Random Sodium Pending MAIKEL ESPINOSA Jul 29, 2016 08:43
--- NOTE | 2016-07-29 09:24 | General Surgery Progress Note ---
General Surgery-Progress Note Subjective Procedure Performed Exploratory Laparotomy small bowel resection Symptoms: improved Objective Last 24 Hour Vital Signs Date Time Temp Pulse Resp B/P Pulse Ox O2 Delivery O2 Flow Rate FiO2 07/29/16 08:00 98.5 88 15 150/93 100 Nasal Cannula 3.0 07/29/16 07:00 85 15 158/96 100 Nasal Cannula 3.0 07/29/16 06:00 89 14 146/97 100 Nasal Cannula 3.0 07/29/16 05:00 92 12 111/60 96 Nasal Cannula 3.0 07/29/16 04:00 101 07/29/16 04:00 98.9 92 13 189/102 97 Nasal Cannula 3.0 07/29/16 03:00 95 16 158/89 98 Nasal Cannula 3.0 07/29/16 02:00 94 12 133/80 96 Nasal Cannula 3.0 07/29/16 01:00 97 15 165/83 98 Nasal Cannula 3.0 07/29/16 00:00 95 16 158/89 98 Nasal Cannula 3.0 07/29/16 00:00 122 07/28/16 23:00 98.9 92 11 129/82 96 Nasal Cannula 3.0 07/28/16 22:00 96 13 133/81 98 Nasal Cannula 3.0 07/28/16 21:15 143/86 07/28/16 21:00 96 13 133/81 98 Nasal Cannula 3.0 07/28/16 20:00 97 19 143/86 99 Nasal Cannula 3.0 07/28/16 20:00 136 07/28/16 19:00 98.9 98 27 142/77 99 Nasal Cannula 3.0 07/28/16 18:40 Nasal Cannula 3.0 32 07/28/16 18:40 96 Nasal Cannula 3.0 32 07/28/16 18:00 103 27 142/72 99 Nasal Cannula 3.0 07/28/16 17:00 104 27 147/75 100 Nasal Cannula 3.0 07/28/16 16:43 109 07/28/16 16:00 98.6 107 23 143/86 100 Nasal Cannula 3.0 07/28/16 15:00 111 27 142/82 100 Nasal Cannula 3.0 07/28/16 14:00 101 27 142/76 100 Nasal Cannula 3.0 07/28/16 13:00 101 20 105/87 100 Nasal Cannula 3.0 07/28/16 12:00 100 07/28/16 12:00 98.9 98 20 153/75 100 Nasal Cannula 3.0 07/28/16 12:00 99 Nasal Cannula 3.0 32 07/28/16 12:00 Nasal Cannula 3.0 32 07/28/16 11:00 98 21 35 07/28/16 11:00 108 20 148/72 100 Mechanical Ventilator 40 07/28/16 10:00 104 20 134/75 100 Mechanical Ventilator 40 07/28/16 09:25 99 20 35 I&O Intake and Output 07/28/16 07/29/16 19:00 07:00 Intake Total 1550 ml 1225 ml Output Total 960 ml 990 ml Balance 590 ml 235 ml IV Total 1550 ml 1225 ml Output Urine Total 700 ml 690 ml Gastric Drainage Total 160 ml Drainage Total 100 ml 300 ml Dressing: dry Drains: curtis Respiratory: clear Abdomen: soft, tenderness, absent bowel sounds Extremities: no edema, no tenderness Laboratory Tests Test 07/28/16 09:59 07/28/16 13:00 07/29/16 04:00 07/29/16 06:00 Arterial Blood pH 7.417 (7.350-7.450) 7.387 (7.350-7.450) Arterial Blood Partial Pressure CO2 30.7 mmHg (35.0-45.0) L 29.9 mmHg (35.0-45.0) L Arterial Blood Partial Pressure O2 83.5 mmHg (75.0-100.0) 98.7 mmHg (75.0-100.0) Arterial Blood HCO3 19.3 mmol/L (22.0-26.0) L 17.6 mmol/L (22.0-26.0) L Arterial Blood Oxygen Saturation 95.9 % (92.0-98.0) 96.7 % (92.0-98.0) Arterial Blood Base Excess -4.3 -6.4 Oliver Test Positive Positive White Blood Count 10.0 K/UL (4.8-10.8) Red Blood Count 3.16 M/UL (4.70-6.10) L Hemoglobin 9.6 G/DL (14.2-18.0) L Hematocrit 28.4 % (42.0-52.0) L Mean Corpuscular Volume 90 FL (80-99) Mean Corpuscular Hemoglobin 30.5 PG (27.0-31.0) Mean Corpuscular Hemoglobin Concent 33.9 G/DL (32.0-36.0) Red Cell Distribution Width 12.5 % (11.6-14.8) Platelet Count 142 K/UL (150-450) L Mean Platelet Volume 8.2 FL (6.5-10.1) Neutrophils (%) (Auto) 84.2 % (45.0-75.0) H Lymphocytes (%) (Auto) 4.7 % (20.0-45.0) L Monocytes (%) (Auto) 10.7 % (1.0-10.0) H Eosinophils (%) (Auto) 0.1 % (0.0-3.0) Basophils (%) (Auto) 0.3 % (0.0-2.0) Sodium Level 146 mEQ/L (135-145) H Potassium Level 4.4 mEQ/L (3.4-4.9) Chloride Level 110 mEQ/L (98-107) H Carbon Dioxide Level 21 mEQ/L (20-30) Anion Gap 15 (5-15) Blood Urea Nitrogen 55 mg/dL (7-23) H Creatinine 4.6 mg/dL (0.7-1.2) H Estimat Glomerular Filtration Rate 12.9 mL/min (>60) Glucose Level 169 mg/dL (74-106) H Uric Acid 7.2 mg/dL (3.0-7.5) Calcium Level 7.6 mg/dL (8.6-10.2) L Phosphorus Level 4.5 mg/dL (2.5-4.8) Magnesium Level 2.0 mg/dL (1.7-2.5) Total Bilirubin 0.8 mg/dL (0.0-1.2) Gamma Glutamyl Transpeptidase 60 U/L (8-61) Aspartate Amino Transf (AST/SGOT) 176 U/L (5-40) H Alanine Aminotransferase (ALT/SGPT) 223 U/L (3-41) H Alkaline Phosphatase 72 U/L (40-129) Total Creatine Kinase 1041 U/L (38-174) H Creatine Kinase MB 9.4 ng/mL (< 6.7) H Troponin I 0.38 ng/mL (<=0.30) *H C-Reactive Protein, Quantitative 21.7 mg/dL (< 0.5) H Pro-B-Type Natriuretic Peptide 1185 pg/mL (0-125) H Total Protein 4.9 g/dL (6.6-8.7) L Albumin 2.5 g/dL (3.5-5.2) L Globulin 2.4 g/dL Albumin/Globulin Ratio 1.0 (1.0-2.7) Lipase 11 U/L (< 60) Urine Random Sodium Pending Assessment Post-op Diagnosis Gangrene of small bowel Plan Additional Comments continue as before EDWIN NOGUEIRA Jul 29, 2016 09:24
--- NOTE | 2016-07-29 10:17 | General Progress Note ---
Assessment/Plan Status: unchanged Assessment/Plan status: Septic Shock leading to acute renal failure- Abdominal Surgery 07/26/16 then again 05/27 Plan; Fluids Antibiotics- Protonix IV monitor renal parameters- discussed with surgeon- and daughter Jackie Subjective ROS Limited/Unobtainable: No Constitutional: Reports: malaise, weakness Allergies: Coded Allergies: No Known Allergies (Unverified , 07/26/16) Objective Last 24 Hour Vital Signs Date Time Temp Pulse Resp B/P Pulse Ox O2 Delivery O2 Flow Rate FiO2 07/29/16 09:00 83 15 153/96 100 Nasal Cannula 3.0 07/29/16 08:00 98.5 88 15 150/93 100 Nasal Cannula 3.0 07/29/16 08:00 90 07/29/16 07:00 85 15 158/96 100 Nasal Cannula 3.0 07/29/16 06:00 89 14 146/97 100 Nasal Cannula 3.0 07/29/16 05:00 92 12 111/60 96 Nasal Cannula 3.0 07/29/16 04:00 101 07/29/16 04:00 98.9 92 13 189/102 97 Nasal Cannula 3.0 07/29/16 03:00 95 16 158/89 98 Nasal Cannula 3.0 07/29/16 02:00 94 12 133/80 96 Nasal Cannula 3.0 07/29/16 01:00 97 15 165/83 98 Nasal Cannula 3.0 07/29/16 00:00 95 16 158/89 98 Nasal Cannula 3.0 07/29/16 00:00 122 07/28/16 23:00 98.9 92 11 129/82 96 Nasal Cannula 3.0 07/28/16 22:00 96 13 133/81 98 Nasal Cannula 3.0 07/28/16 21:15 143/86 07/28/16 21:00 96 13 133/81 98 Nasal Cannula 3.0 07/28/16 20:00 97 19 143/86 99 Nasal Cannula 3.0 07/28/16 20:00 136 07/28/16 19:00 98.9 98 27 142/77 99 Nasal Cannula 3.0 07/28/16 18:40 Nasal Cannula 3.0 32 07/28/16 18:40 96 Nasal Cannula 3.0 32 07/28/16 18:00 103 27 142/72 99 Nasal Cannula 3.0 07/28/16 17:00 104 27 147/75 100 Nasal Cannula 3.0 07/28/16 16:43 109 07/28/16 16:00 98.6 107 23 143/86 100 Nasal Cannula 3.0 07/28/16 15:00 111 27 142/82 100 Nasal Cannula 3.0 07/28/16 14:00 101 27 142/76 100 Nasal Cannula 3.0 07/28/16 13:00 101 20 105/87 100 Nasal Cannula 3.0 07/28/16 12:00 100 07/28/16 12:00 98.9 98 20 153/75 100 Nasal Cannula 3.0 07/28/16 12:00 99 Nasal Cannula 3.0 32 07/28/16 12:00 Nasal Cannula 3.0 32 07/28/16 11:00 98 21 35 07/28/16 11:00 108 20 148/72 100 Mechanical Ventilator 40 Intake and Output 07/28/16 07/29/16 19:00 07:00 Intake Total 1550 ml 1225 ml Output Total 960 ml 990 ml Balance 590 ml 235 ml IV Total 1550 ml 1225 ml Output Urine Total 700 ml 690 ml Gastric Drainage Total 160 ml Drainage Total 100 ml 300 ml Laboratory Tests 07/28/16 13:00: Arterial Blood pH 7.387, Arterial Blood Partial Pressure CO2 29.9L, Arterial Blood Partial Pressure O2 98.7, Arterial Blood HCO3 17.6L, Arterial Blood Oxygen Saturation 96.7, Arterial Blood Base Excess -6.4, Oliver Test Positive 07/29/16 04:00: White Blood Count 10.0, Red Blood Count 3.16L, Hemoglobin 9.6L, Hematocrit 28.4L , Mean Corpuscular Volume 90, Mean Corpuscular Hemoglobin 30.5, Mean Corpuscular Hemoglobin Concent 33.9, Red Cell Distribution Width 12.5, Platelet Count 142L, Mean Platelet Volume 8.2, Neutrophils (%) (Auto) 84.2H, Lymphocytes (%) (Auto) 4.7L, Monocytes (%) (Auto) 10.7H, Eosinophils (%) (Auto) 0.1, Basophils (%) (Auto) 0.3, Sodium Level 146H, Potassium Level 4.4, Chloride Level 110H, Carbon Dioxide Level 21, Anion Gap 15, Blood Urea Nitrogen 55H, Creatinine 4.6H, Estimat Glomerular Filtration Rate 12.9, Glucose Level 169H, Uric Acid 7.2, Calcium Level 7.6L, Phosphorus Level 4.5, Magnesium Level 2.0, Total Bilirubin 0.8, Gamma Glutamyl Transpeptidase 60, Aspartate Amino Transf ( AST/SGOT) 176H, Alanine Aminotransferase (ALT/SGPT) 223H, Alkaline Phosphatase 72, Total Creatine Kinase 1041H, Creatine Kinase MB 9.4H, Troponin I 0.38*H, C- Reactive Protein, Quantitative 21.7H, Pro-B-Type Natriuretic Peptide 1185H, Total Protein 4.9L, Albumin 2.5L, Globulin 2.4, Albumin/Globulin Ratio 1.0, Lipase 11 07/29/16 06:00: Urine Random Sodium [Pending] Height (Feet): 5 Height (Inches): 6.00 Weight (Pounds): 162 General Appearance: mild distress Cardiovascular: tachycardia Respiratory/Chest: decreased breath sounds Abdomen: distended REBECCA SCHULTE Jul 29, 2016 10:17
[2016-07-29 11:27] LABS: CREATININE 4.8 mg/dL (0.7-1.2); GLOMERULAR FILTRATION RATE 12.3 mL/min (>60)
--- NOTE | 2016-07-29 11:59 | Consultation ---
History of Present Illness General Date patient seen: Jul 29, 2016 Time patient seen: 11:56 Chief Complaint: Abdominal Pain Reason for Consultation: elevated creatinine low urine output Present Illness HPI 65 yo male recovering from bowel, sepsis. Initially had low urine output that is now better. creatinine still elevated. negative CT regarding bladder, prostate, kidneys. Allergies: Coded Allergies: No Known Allergies (Unverified , 07/26/16) Medication History Scheduled No Known Medications* (NKM - No Known Medications*), 0 ., (Reported) Patient History Healthcare decision maker Resuscitation status Full Code Advanced Directive on File Past Medical/Surgical History Past Medical/Surgical History: (1) MIGNON (acute kidney injury) (2) SBO (small bowel obstruction) Review of Systems Constitutional: Reports: weakness Eye: Denies: acuity changes, blurred vision, discharge, double vision, eye pain , no symptoms, nose congestion, nose pain, other, see HPI, tearing ENT: Denies: ear discharge, ear pain, hearing loss, mouth pain, nasal discharge , no symptoms, nose congestion, nose pain, other, see HPI, throat pain, throat swelling Respiratory: Denies: HAIRSTON, cough, no symptoms, orthopnea, other, see HPI, shortness of breath, sputum, stridor, wheezing Cardiovascular: Denies: PND, chest pain, edema, no symptoms, other, palpitations, see HPI, syncope Gastrointestinal: Reports: abdominal pain Genitourinary: Denies: discharge, dysuria, frequency, hematuria, incontinence, no symptoms, other, pain, retention, see HPI, urgency, vag bleed/dc Musculoskeletal: Denies: back pain, gout, joint pain, joint swelling, muscle pain, muscle stiffness, no symptoms, other, see HPI Skin: Denies: change in color, change in hair/nails, dryness, lesions, no symptoms, other, rash, see HPI Psychiatric: Denies: HI, SI, anxiety, depressed feelings, emotional problems, hallucinations, no symptoms, other, prior hx, see HPI Neurological: Denies: dizziness, focal weakness, headache, no symptoms, numbness, other, paresthesia, see HPI, seizure, syncope, tingling, tremors Endocrine: Denies: excessive sweating, flushing, increased thirst, increased urine, intolerance to temperature, no symptoms, other, see HPI, unexplained weight loss Hematologic/Lymphatic: Denies: anemia, blood clots, diathesis, easy bleeding, easy bruising, no symptoms, other, see HPI, swollen glands Physical Exam General Appearance: WD/WN Abdomen: soft Genitourinary/Rectal: normal genital exam Last 24 Hour Vital Signs Date Time Temp Pulse Resp B/P Pulse Ox O2 Delivery O2 Flow Rate FiO2 07/29/16 11:00 80 15 156/82 100 Nasal Cannula 3.0 07/29/16 10:00 89 15 159/97 100 Nasal Cannula 3.0 07/29/16 09:00 83 15 153/96 100 Nasal Cannula 3.0 07/29/16 08:00 98.5 88 15 150/93 100 Nasal Cannula 3.0 07/29/16 08:00 90 07/29/16 07:00 85 15 158/96 100 Nasal Cannula 3.0 07/29/16 06:00 89 14 146/97 100 Nasal Cannula 3.0 07/29/16 05:00 92 12 111/60 96 Nasal Cannula 3.0 07/29/16 04:00 101 07/29/16 04:00 98.9 92 13 189/102 97 Nasal Cannula 3.0 07/29/16 03:00 95 16 158/89 98 Nasal Cannula 3.0 07/29/16 02:00 94 12 133/80 96 Nasal Cannula 3.0 07/29/16 01:00 97 15 165/83 98 Nasal Cannula 3.0 07/29/16 00:00 95 16 158/89 98 Nasal Cannula 3.0 07/29/16 00:00 122 07/28/16 23:00 98.9 92 11 129/82 96 Nasal Cannula 3.0 07/28/16 22:00 96 13 133/81 98 Nasal Cannula 3.0 07/28/16 21:15 143/86 07/28/16 21:00 96 13 133/81 98 Nasal Cannula 3.0 07/28/16 20:00 97 19 143/86 99 Nasal Cannula 3.0 07/28/16 20:00 136 07/28/16 19:00 98.9 98 27 142/77 99 Nasal Cannula 3.0 07/28/16 18:40 Nasal Cannula 3.0 32 07/28/16 18:40 96 Nasal Cannula 3.0 32 07/28/16 18:00 103 27 142/72 99 Nasal Cannula 3.0 07/28/16 17:00 104 27 147/75 100 Nasal Cannula 3.0 07/28/16 16:43 109 07/28/16 16:00 98.6 107 23 143/86 100 Nasal Cannula 3.0 07/28/16 15:00 111 27 142/82 100 Nasal Cannula 3.0 07/28/16 14:00 101 27 142/76 100 Nasal Cannula 3.0 07/28/16 13:00 101 20 105/87 100 Nasal Cannula 3.0 07/28/16 12:00 100 07/28/16 12:00 98.9 98 20 153/75 100 Nasal Cannula 3.0 07/28/16 12:00 99 Nasal Cannula 3.0 32 07/28/16 12:00 Nasal Cannula 3.0 32 Intake and Output 07/28/16 07/29/16 19:00 07:00 Intake Total 1550 ml 1250 ml Output Total 960 ml 990 ml Balance 590 ml 260 ml IV Total 1550 ml 1250 ml Output Urine Total 700 ml 690 ml Gastric Drainage Total 160 ml Drainage Total 100 ml 300 ml Laboratory Tests Test 07/28/16 13:00 07/29/16 04:00 07/29/16 06:00 07/29/16 10:50 Arterial Blood pH 7.387 (7.350-7.450) Arterial Blood Partial Pressure CO2 29.9 mmHg (35.0-45.0) L Arterial Blood Partial Pressure O2 98.7 mmHg (75.0-100.0) Arterial Blood HCO3 17.6 mmol/L (22.0-26.0) L Arterial Blood Oxygen Saturation 96.7 % (92.0-98.0) Arterial Blood Base Excess -6.4 Oliver Test Positive White Blood Count 10.0 K/UL (4.8-10.8) Red Blood Count 3.16 M/UL (4.70-6.10) L Hemoglobin 9.6 G/DL (14.2-18.0) L Hematocrit 28.4 % (42.0-52.0) L Mean Corpuscular Volume 90 FL (80-99) Mean Corpuscular Hemoglobin 30.5 PG (27.0-31.0) Mean Corpuscular Hemoglobin Concent 33.9 G/DL (32.0-36.0) Red Cell Distribution Width 12.5 % (11.6-14.8) Platelet Count 142 K/UL (150-450) L Mean Platelet Volume 8.2 FL (6.5-10.1) Neutrophils (%) (Auto) 84.2 % (45.0-75.0) H Lymphocytes (%) (Auto) 4.7 % (20.0-45.0) L Monocytes (%) (Auto) 10.7 % (1.0-10.0) H Eosinophils (%) (Auto) 0.1 % (0.0-3.0) Basophils (%) (Auto) 0.3 % (0.0-2.0) Sodium Level 146 mEQ/L (135-145) H Potassium Level 4.4 mEQ/L (3.4-4.9) Chloride Level 110 mEQ/L (98-107) H Carbon Dioxide Level 21 mEQ/L (20-30) Anion Gap 15 (5-15) Blood Urea Nitrogen 55 mg/dL (7-23) H 54 mg/dL (7-23) H Creatinine 4.6 mg/dL (0.7-1.2) H 4.8 mg/dL (0.7-1.2) H Estimat Glomerular Filtration Rate 12.9 mL/min (>60) 12.3 mL/min (>60) Glucose Level 169 mg/dL (74-106) H Uric Acid 7.2 mg/dL (3.0-7.5) Calcium Level 7.6 mg/dL (8.6-10.2) L Phosphorus Level 4.5 mg/dL (2.5-4.8) Magnesium Level 2.0 mg/dL (1.7-2.5) Total Bilirubin 0.8 mg/dL (0.0-1.2) Gamma Glutamyl Transpeptidase 60 U/L (8-61) Aspartate Amino Transf (AST/SGOT) 176 U/L (5-40) H Alanine Aminotransferase (ALT/SGPT) 223 U/L (3-41) H Alkaline Phosphatase 72 U/L (40-129) Total Creatine Kinase 1041 U/L (38-174) H Creatine Kinase MB 9.4 ng/mL (< 6.7) H Troponin I 0.38 ng/mL (<=0.30) *H C-Reactive Protein, Quantitative 21.7 mg/dL (< 0.5) H Pro-B-Type Natriuretic Peptide 1185 pg/mL (0-125) H Total Protein 4.9 g/dL (6.6-8.7) L Albumin 2.5 g/dL (3.5-5.2) L Globulin 2.4 g/dL Albumin/Globulin Ratio 1.0 (1.0-2.7) Lipase 11 U/L (< 60) Urine Random Sodium 57 mmol/L Height (Feet): 5 Height (Inches): 6.00 Weight (Pounds): 162 Medications Current Medications Medications (Trade) Dose Ordered Sig/Arti Route PRN Reason Start Time Stop Time Status Last Admin Dose Admin Acetaminophen (Tylenol) 650 mg Q4H PRN RECTAL FEVER 07/29/16 13:45 08/28/16 13:44 UNV Clindamycin HCl/ Dextrose 50 ml @ 100 mls/hr Q8HR@0400,1200,2000 IV 07/29/16 12:00 08/05/16 11:59 UNV Dextrose 1,000 ml @ 100 mls/hr Q10H IV 07/29/16 11:15 08/28/16 11:14 UNV Enoxaparin Sodium (Lovenox) 30 mg DAILY SUBQ 07/30/16 09:00 08/29/16 08:59 UNV Hydromorphone HCl (Dilaudid) 0.5 mg Q3H PRN IVP Pain Score 1-3 07/29/16 13:45 08/05/16 13:44 UNV Hydromorphone HCl (Dilaudid) 1 mg Q3H PRN IVP pain score 4-6 07/29/16 13:45 08/05/16 13:44 UNV Hydromorphone HCl (Dilaudid) 2 mg Q3H PRN IVP pain score 7-10 07/29/16 13:45 08/05/16 13:44 UNV Metoclopramide HCl (Reglan) 10 mg Q6H PRN IVP Nausea & Vomiting 07/29/16 16:45 08/28/16 16:44 UNV Ondansetron HCl (Zofran) 4 mg Q6H PRN IVP Nausea & Vomiting 07/29/16 16:45 08/28/16 16:44 UNV Pantoprazole (Protonix) 40 mg Q12HR IVP 07/29/16 21:00 08/28/16 20:59 UNV Piperacillin Sod/ Tazobactam Sod/ Dextrose (Zosyn/D5W 100ml) 100 ml @ 25 mls/hr EVERY 8 HOURS IVPB 07/29/16 14:00 08/05/16 13:[address]: negative for hydro Assessment/Plan Status: stable Assessment/Plan 65 yo male with likely sepsis from bowel. recovering. initial concerns for low urine output resolving likely now that patient is improving from sepsis. At this time no intervention necessary for purposes. Creatinine elevation likely intrinsic renal issue due to sepsis. 1. no intervention Tito Castano M.D. Jul 29, 2016 11:59
[2016-07-29] MEDS ORDERED: Metoclopramide 10mg/2ml Inj IVP PRN (13:00)
--- NOTE | 2016-07-29 13:06 | Cardiac Electrophysiology PN ---
Assessment/Plan Assessment/Plan 1. NSTEMI with elevated troponin due to demand ischemia vs renal failure. ECG non ischemic. Troponin down to 0.38. ECho NL EF. Hold off on betablocker for low BP. 2. S/P Septic shock due to small bowel obstruction and gangrene. Off pressors.On iv fluid and antibiotics. 3. Small bowel obstruction status post laparotomy and small bowel resection. Follow up Dr Murrieta. 4. Respiratory failur on vent 5. Renal failure, creatinine 4.8. Further evaluation by Dr. Rai. SERGIO RN Subjective Subjective Transferred out of ICU.Off pressors. Mildly tachycardic but alert and responsive. Objective Last 24 Hour Vital Signs Date Time Temp Pulse Resp B/P Pulse Ox O2 Delivery O2 Flow Rate FiO2 07/29/16 11:00 80 15 156/82 100 Nasal Cannula 3.0 07/29/16 10:00 89 15 159/97 100 Nasal Cannula 3.0 07/29/16 09:00 83 15 153/96 100 Nasal Cannula 3.0 07/29/16 08:00 98.5 88 15 150/93 100 Nasal Cannula 3.0 07/29/16 08:00 90 07/29/16 07:00 85 15 158/96 100 Nasal Cannula 3.0 07/29/16 06:00 89 14 146/97 100 Nasal Cannula 3.0 07/29/16 05:00 92 12 111/60 96 Nasal Cannula 3.0 07/29/16 04:00 101 07/29/16 04:00 98.9 92 13 189/102 97 Nasal Cannula 3.0 07/29/16 03:00 95 16 158/89 98 Nasal Cannula 3.0 07/29/16 02:00 94 12 133/80 96 Nasal Cannula 3.0 07/29/16 01:00 97 15 165/83 98 Nasal Cannula 3.0 07/29/16 00:00 95 16 158/89 98 Nasal Cannula 3.0 07/29/16 00:00 122 07/28/16 23:00 98.9 92 11 129/82 96 Nasal Cannula 3.0 07/28/16 22:00 96 13 133/81 98 Nasal Cannula 3.0 07/28/16 21:15 143/86 07/28/16 21:00 96 13 133/81 98 Nasal Cannula 3.0 07/28/16 20:00 97 19 143/86 99 Nasal Cannula 3.0 07/28/16 20:00 136 07/28/16 19:00 98.9 98 27 142/77 99 Nasal Cannula 3.0 07/28/16 18:40 Nasal Cannula 3.0 32 07/28/16 18:40 96 Nasal Cannula 3.0 32 07/28/16 18:00 103 27 142/72 99 Nasal Cannula 3.0 07/28/16 17:00 104 27 147/75 100 Nasal Cannula 3.0 07/28/16 16:43 109 07/28/16 16:00 98.6 107 23 143/86 100 Nasal Cannula 3.0 07/28/16 15:00 111 27 142/82 100 Nasal Cannula 3.0 07/28/16 14:00 101 27 142/76 100 Nasal Cannula 3.0 Intake and Output 07/28/16 07/29/16 19:00 07:00 Intake Total 1550 ml 1250 ml Output Total 960 ml 990 ml Balance 590 ml 260 ml IV Total 1550 ml 1250 ml Output Urine Total 700 ml 690 ml Gastric Drainage Total 160 ml Drainage Total 100 ml 300 ml Laboratory Tests Test 07/29/16 04:00 07/29/16 06:00 07/29/16 10:50 White Blood Count 10.0 K/UL (4.8-10.8) Red Blood Count 3.16 M/UL (4.70-6.10) L Hemoglobin 9.6 G/DL (14.2-18.0) L Hematocrit 28.4 % (42.0-52.0) L Mean Corpuscular Volume 90 FL (80-99) Mean Corpuscular Hemoglobin 30.5 PG (27.0-31.0) Mean Corpuscular Hemoglobin Concent 33.9 G/DL (32.0-36.0) Red Cell Distribution Width 12.5 % (11.6-14.8) Platelet Count 142 K/UL (150-450) L Mean Platelet Volume 8.2 FL (6.5-10.1) Neutrophils (%) (Auto) 84.2 % (45.0-75.0) H Lymphocytes (%) (Auto) 4.7 % (20.0-45.0) L Monocytes (%) (Auto) 10.7 % (1.0-10.0) H Eosinophils (%) (Auto) 0.1 % (0.0-3.0) Basophils (%) (Auto) 0.3 % (0.0-2.0) Sodium Level 146 mEQ/L (135-145) H Potassium Level 4.4 mEQ/L (3.4-4.9) Chloride Level 110 mEQ/L (98-107) H Carbon Dioxide Level 21 mEQ/L (20-30) Anion Gap 15 (5-15) Blood Urea Nitrogen 55 mg/dL (7-23) H 54 mg/dL (7-23) H Creatinine 4.6 mg/dL (0.7-1.2) H 4.8 mg/dL (0.7-1.2) H Estimat Glomerular Filtration Rate 12.9 mL/min (>60) 12.3 mL/min (>60) Glucose Level 169 mg/dL (74-106) H Uric Acid 7.2 mg/dL (3.0-7.5) Calcium Level 7.6 mg/dL (8.6-10.2) L Phosphorus Level 4.5 mg/dL (2.5-4.8) Magnesium Level 2.0 mg/dL (1.7-2.5) Total Bilirubin 0.8 mg/dL (0.0-1.2) Gamma Glutamyl Transpeptidase 60 U/L (8-61) Aspartate Amino Transf (AST/SGOT) 176 U/L (5-40) H Alanine Aminotransferase (ALT/SGPT) 223 U/L (3-41) H Alkaline Phosphatase 72 U/L (40-129) Total Creatine Kinase 1041 U/L (38-174) H Creatine Kinase MB 9.4 ng/mL (< 6.7) H Troponin I 0.38 ng/mL (<=0.30) *H C-Reactive Protein, Quantitative 21.7 mg/dL (< 0.5) H Pro-B-Type Natriuretic Peptide 1185 pg/mL (0-125) H Total Protein 4.9 g/dL (6.6-8.7) L Albumin 2.5 g/dL (3.5-5.2) L Globulin 2.4 g/dL Albumin/Globulin Ratio 1.0 (1.0-2.7) Lipase 11 U/L (< 60) Urine Random Sodium 57 mmol/L Microbiology Date/Time Source Procedure Growth Status 07/27/16 06:10 Blood Blood Culture - Preliminary NO GROWTH AFTER 24 HOURS Resulted 07/27/16 21:00 Abdominal Fluid Gram Stain - Final Resulted 07/27/16 21:00 Abdominal Fluid Aerobic Culture - Preliminary NO GROWTH AFTER 24 HOURS Resulted 07/27/16 21:00 Abdominal Fluid Anaerobic Culture Pending Resulted Objective HEAD AND NECK: No JVD. LUNGS: Coarse rhonchi. CARDIOVASCULAR: Tachycardic S1 and S2 with no gallop or murmur. ABDOMEN: Post median laparotomy.DAKOTA drain. EXTREMITIES: There is no pitting edema. HONEY DUKE Jul 29, 2016 13:06
--- NOTE | 2016-07-29 13:30 | General Progress Note ---
Assessment/Plan Problem List: (1) Ileus ICD Codes: K56.7 - Ileus, unspecified SNOMED: 314365569 (2) Sepsis ICD Codes: A41.9 - Sepsis, unspecified organism SNOMED: 72821904 (3) Abdominal pain ICD Codes: R10.9 - Unspecified abdominal pain SNOMED: 51765557 (4) SBO (small bowel obstruction) ICD Codes: K56.69 - Other intestinal obstruction SNOMED: 942008107 (5) Abdominal gas pain ICD Codes: R14.1 - Gas pain SNOMED: 50650544 (6) Enteritis ICD Codes: K52.9 - Noninfective gastroenteritis and colitis, unspecified SNOMED: 88190508 Status: deteriorating Assessment/Plan sbo s/p exploratory lap by dr yayo atkinson closely r/o septic shock lactic acidosis dry] decreased urine output Subjective ROS Limited/Unobtainable: Yes Allergies: Coded Allergies: No Known Allergies (Unverified , 07/26/16) Objective Last 24 Hour Vital Signs Date Time Temp Pulse Resp B/P Pulse Ox O2 Delivery O2 Flow Rate FiO2 07/29/16 11:00 80 15 156/82 100 Nasal Cannula 3.0 07/29/16 10:00 89 15 159/97 100 Nasal Cannula 3.0 07/29/16 09:00 83 15 153/96 100 Nasal Cannula 3.0 07/29/16 08:00 98.5 88 15 150/93 100 Nasal Cannula 3.0 07/29/16 08:00 90 07/29/16 07:00 85 15 158/96 100 Nasal Cannula 3.0 07/29/16 06:00 89 14 146/97 100 Nasal Cannula 3.0 07/29/16 05:00 92 12 111/60 96 Nasal Cannula 3.0 07/29/16 04:00 101 07/29/16 04:00 98.9 92 13 189/102 97 Nasal Cannula 3.0 07/29/16 03:00 95 16 158/89 98 Nasal Cannula 3.0 07/29/16 02:00 94 12 133/80 96 Nasal Cannula 3.0 07/29/16 01:00 97 15 165/83 98 Nasal Cannula 3.0 07/29/16 00:00 95 16 158/89 98 Nasal Cannula 3.0 07/29/16 00:00 122 07/28/16 23:00 98.9 92 11 129/82 96 Nasal Cannula 3.0 07/28/16 22:00 96 13 133/81 98 Nasal Cannula 3.0 07/28/16 21:15 143/86 07/28/16 21:00 96 13 133/81 98 Nasal Cannula 3.0 07/28/16 20:00 97 19 143/86 99 Nasal Cannula 3.0 07/28/16 20:00 136 07/28/16 19:00 98.9 98 27 142/77 99 Nasal Cannula 3.0 07/28/16 18:40 Nasal Cannula 3.0 32 07/28/16 18:40 96 Nasal Cannula 3.0 32 07/28/16 18:00 103 27 142/72 99 Nasal Cannula 3.0 07/28/16 17:00 104 27 147/75 100 Nasal Cannula 3.0 07/28/16 16:43 109 07/28/16 16:00 98.6 107 23 143/86 100 Nasal Cannula 3.0 07/28/16 15:00 111 27 142/82 100 Nasal Cannula 3.0 07/28/16 14:00 101 27 142/76 100 Nasal Cannula 3.0 Intake and Output 07/28/16 07/29/16 19:00 07:00 Intake Total 1550 ml 1250 ml Output Total 960 ml 990 ml Balance 590 ml 260 ml IV Total 1550 ml 1250 ml Output Urine Total 700 ml 690 ml Gastric Drainage Total 160 ml Drainage Total 100 ml 300 ml Laboratory Tests 07/29/16 04:00: White Blood Count 10.0, Red Blood Count 3.16L, Hemoglobin 9.6L, Hematocrit 28.4L , Mean Corpuscular Volume 90, Mean Corpuscular Hemoglobin 30.5, Mean Corpuscular Hemoglobin Concent 33.9, Red Cell Distribution Width 12.5, Platelet Count 142L, Mean Platelet Volume 8.2, Neutrophils (%) (Auto) 84.2H, Lymphocytes (%) (Auto) 4.7L, Monocytes (%) (Auto) 10.7H, Eosinophils (%) (Auto) 0.1, Basophils (%) (Auto) 0.3, Sodium Level 146H, Potassium Level 4.4, Chloride Level 110H, Carbon Dioxide Level 21, Anion Gap 15, Blood Urea Nitrogen 55H, Creatinine 4.6H, Estimat Glomerular Filtration Rate 12.9, Glucose Level 169H, Uric Acid 7.2, Calcium Level 7.6L, Phosphorus Level 4.5, Magnesium Level 2.0, Total Bilirubin 0.8, Gamma Glutamyl Transpeptidase 60, Aspartate Amino Transf ( AST/SGOT) 176H, Alanine Aminotransferase (ALT/SGPT) 223H, Alkaline Phosphatase 72, Total Creatine Kinase 1041H, Creatine Kinase MB 9.4H, Troponin I 0.38*H, C- Reactive Protein, Quantitative 21.7H, Pro-B-Type Natriuretic Peptide 1185H, Total Protein 4.9L, Albumin 2.5L, Globulin 2.4, Albumin/Globulin Ratio 1.0, Lipase 11 07/29/16 06:00: Urine Random Sodium 57 07/29/16 10:50: Blood Urea Nitrogen 54H, Creatinine 4.8H, Estimat Glomerular Filtration Rate 12.3 Height (Feet): 5 Height (Inches): 6.00 Weight (Pounds): 162 General Appearance: lethargic Teo Love MD Jul 29, 2016 13:30
[2016-07-29] MEDS ORDERED: Acetaminophen 650 MG SUPP RECTAL PRN (13:45)
[2016-07-29] MEDS ORDERED: Hydromorphone 0.5mg/0.5ml inj IVP PRN (13:45)
[2016-07-29] MEDS: D5W IV SCH ×2 (14:00→22:19)
[2016-07-29] MEDS: ZOSYN IV SCH ×2 (14:00→22:19)
--- NOTE | 2016-07-29 14:43 | Infectious Diseases Prog Note ---
Assessment/Plan Problems: (1) Septic shock Assessment & Plan: improving, with IVF , off pressor today , will continue clindamycin for MRSA coverage and zosyn for now, await blood culture and abdominal fluids culture (2) SBO (small bowel obstruction) Assessment & Plan: S/P EX LAP , still has ileus, continue IVF, and pain management , general surgery is following (3) Abdominal pain Assessment & Plan: continue pain management, surgery is following (4) MIGNON (acute kidney injury) Assessment & Plan: due to sepsis and hypotension, continue IVF, titrate to keep SBP >100, renal is following Subjective Gastrointestinal/Abdominal: Reports: bloating, constipation, other - pain Allergies: Coded Allergies: No Known Allergies (Unverified , 07/26/16) All Systems: reviewed and negative except above Subjective he didn't pass mich, no fever or chills, no cough or SOB, has mild abdominal pain, no bowel movement. Objective Vital Signs Last 24 Hour Vital Signs Date Time Temp Pulse Resp B/P Pulse Ox O2 Delivery O2 Flow Rate FiO2 07/29/16 12:00 98.1 90 20 155/93 95 Nasal Cannula 3.0 07/29/16 11:00 80 15 156/82 100 Nasal Cannula 3.0 07/29/16 10:00 89 15 159/97 100 Nasal Cannula 3.0 07/29/16 09:00 83 15 153/96 100 Nasal Cannula 3.0 07/29/16 08:00 98.5 88 15 150/93 100 Nasal Cannula 3.0 07/29/16 08:00 90 07/29/16 07:00 85 15 158/96 100 Nasal Cannula 3.0 07/29/16 06:00 89 14 146/97 100 Nasal Cannula 3.0 07/29/16 05:00 92 12 111/60 96 Nasal Cannula 3.0 07/29/16 04:00 101 07/29/16 04:00 98.9 92 13 189/102 97 Nasal Cannula 3.0 07/29/16 03:00 95 16 158/89 98 Nasal Cannula 3.0 07/29/16 02:00 94 12 133/80 96 Nasal Cannula 3.0 07/29/16 01:00 97 15 165/83 98 Nasal Cannula 3.0 07/29/16 00:00 95 16 158/89 98 Nasal Cannula 3.0 07/29/16 00:00 122 07/28/16 23:00 98.9 92 11 129/82 96 Nasal Cannula 3.0 07/28/16 22:00 96 13 133/81 98 Nasal Cannula 3.0 07/28/16 21:15 143/86 07/28/16 21:00 96 13 133/81 98 Nasal Cannula 3.0 07/28/16 20:00 97 19 143/86 99 Nasal Cannula 3.0 07/28/16 20:00 136 07/28/16 19:00 98.9 98 27 142/77 99 Nasal Cannula 3.0 07/28/16 18:40 Nasal Cannula 3.0 32 07/28/16 18:40 96 Nasal Cannula 3.0 32 07/28/16 18:00 103 27 142/72 99 Nasal Cannula 3.0 07/28/16 17:00 104 27 147/75 100 Nasal Cannula 3.0 07/28/16 16:43 109 07/28/16 16:00 98.6 107 23 143/86 100 Nasal Cannula 3.0 07/28/16 15:00 111 27 142/82 100 Nasal Cannula 3.0 Height (Feet): 5 Height (Inches): 6.00 Weight (Pounds): 162 General Appearance: WD/WN, no acute distress HEENT: normocephalic, atraumatic, anicteric, mucous membranes moist Respiratory/Chest: chest wall non-tender, normal breath sounds, no respiratory distress, no accessory muscle use, decreased breath sounds, crackles/rales Cardiovascular: normal peripheral pulses, normal rate, regular rhythm, no gallop/murmur Abdomen: normal bowel sounds, soft, non tender, no organomegaly, non distended , no mass Extremities: no cyanosis, no clubbing Skin: no rash, no lesions, no ulcers Microbiology Date/Time Source Procedure Growth Status 07/27/16 06:10 Blood Blood Culture - Preliminary NO GROWTH AFTER 24 HOURS Resulted 07/27/16 21:00 Abdominal Fluid Gram Stain - Final Resulted 07/27/16 21:00 Abdominal Fluid Aerobic Culture - Preliminary NO GROWTH AFTER 24 HOURS Resulted 07/27/16 21:00 Abdominal Fluid Anaerobic Culture Pending Resulted Laboratory Tests Test 07/29/16 04:00 07/29/16 06:00 07/29/16 10:50 White Blood Count 10.0 K/UL (4.8-10.8) Red Blood Count 3.16 M/UL (4.70-6.10) L Hemoglobin 9.6 G/DL (14.2-18.0) L Hematocrit 28.4 % (42.0-52.0) L Mean Corpuscular Volume 90 FL (80-99) Mean Corpuscular Hemoglobin 30.5 PG (27.0-31.0) Mean Corpuscular Hemoglobin Concent 33.9 G/DL (32.0-36.0) Red Cell Distribution Width 12.5 % (11.6-14.8) Platelet Count 142 K/UL (150-450) L Mean Platelet Volume 8.2 FL (6.5-10.1) Neutrophils (%) (Auto) 84.2 % (45.0-75.0) H Lymphocytes (%) (Auto) 4.7 % (20.0-45.0) L Monocytes (%) (Auto) 10.7 % (1.0-10.0) H Eosinophils (%) (Auto) 0.1 % (0.0-3.0) Basophils (%) (Auto) 0.3 % (0.0-2.0) Sodium Level 146 mEQ/L (135-145) H Potassium Level 4.4 mEQ/L (3.4-4.9) Chloride Level 110 mEQ/L (98-107) H Carbon Dioxide Level 21 mEQ/L (20-30) Anion Gap 15 (5-15) Blood Urea Nitrogen 55 mg/dL (7-23) H 54 mg/dL (7-23) H Creatinine 4.6 mg/dL (0.7-1.2) H 4.8 mg/dL (0.7-1.2) H Estimat Glomerular Filtration Rate 12.9 mL/min (>60) 12.3 mL/min (>60) Glucose Level 169 mg/dL (74-106) H Uric Acid 7.2 mg/dL (3.0-7.5) Calcium Level 7.6 mg/dL (8.6-10.2) L Phosphorus Level 4.5 mg/dL (2.5-4.8) Magnesium Level 2.0 mg/dL (1.7-2.5) Total Bilirubin 0.8 mg/dL (0.0-1.2) Gamma Glutamyl Transpeptidase 60 U/L (8-61) Aspartate Amino Transf (AST/SGOT) 176 U/L (5-40) H Alanine Aminotransferase (ALT/SGPT) 223 U/L (3-41) H Alkaline Phosphatase 72 U/L (40-129) Total Creatine Kinase 1041 U/L (38-174) H Creatine Kinase MB 9.4 ng/mL (< 6.7) H Troponin I 0.38 ng/mL (<=0.30) *H C-Reactive Protein, Quantitative 21.7 mg/dL (< 0.5) H Pro-B-Type Natriuretic Peptide 1185 pg/mL (0-125) H Total Protein 4.9 g/dL (6.6-8.7) L Albumin 2.5 g/dL (3.5-5.2) L Globulin 2.4 g/dL Albumin/Globulin Ratio 1.0 (1.0-2.7) Lipase 11 U/L (< 60) Urine Random Sodium 57 mmol/L Current Medications Medications (Trade) Dose Ordered Sig/Arti Route PRN Reason Start Time Stop Time Status Last Admin Dose Admin Acetaminophen (Tylenol) 650 mg Q4H PRN RECTAL FEVER 07/29/16 13:45 08/28/16 13:44 Clindamycin HCl/ Dextrose 50 ml @ 100 mls/hr Q8HR@0400,1200,2000 IV 07/29/16 12:00 08/05/16 11:59 Dextrose (D5W 1000ml) 1,000 ml @ 100 mls/hr Q10H IV 07/29/16 13:00 08/28/16 12:59 Enoxaparin Sodium (Lovenox) 30 mg DAILY SUBQ 07/30/16 09:00 08/29/16 08:59 Hydromorphone HCl (Dilaudid) 0.5 mg Q3H PRN IVP Pain Score 1-3 07/29/16 13:45 08/05/16 13:44 Hydromorphone HCl (Dilaudid) 1 mg Q3H PRN IVP pain score 4-6 07/29/16 13:45 08/05/16 13:44 Hydromorphone HCl (Dilaudid) 2 mg Q3H PRN IVP pain score 7-10 07/29/16 13:45 08/05/16 13:44 Metoclopramide HCl (Reglan) 10 mg Q6H PRN IVP Nausea & Vomiting 07/29/16 13:00 08/28/16 12:59 Ondansetron HCl (Zofran) 4 mg Q6H PRN IVP Nausea & Vomiting 07/29/16 13:00 08/28/16 12:59 Pantoprazole 40 mg 40 mg Q12HR IVP 07/29/16 21:00 08/28/16 20:59 Piperacillin Sod/ Tazobactam Sod/ Dextrose (Zosyn/D5W 50ml) 55 ml @ 110 mls/hr Q8HR IV 07/29/16 14:00 08/03/16 13:59 07/29/16 14:00 Piyush Harris M.D. Jul 29, 2016 14:43
--- NOTE | 2016-07-29 14:45 | General Progress Note ---
Assessment/Plan Assessment/Plan ASSESSMENT: 1. Leukocytosis. Likely 2/2 underlying infection. Peripheral smear within normal limits 2. Anemia 2/2 chronic disease, has no iron defiicnecy 3. Sepsis, likely contributing to leukocytosis. 4. Abdominal pain due to small bowel obstruction. Surgery is on board 5. Small bowel obstruction. status post exploratory laparotomy 6. Anemia 2/2 hemodilution RECOMMENDATIONS: 1. Monitor counts 2. Check iron panel and ferritin and b12/folate 3. Follow up on Surgery and Infectious Diseases recs 4. Imaging has been reviewed. 5. Transfuse if hgb <7. 6. staff Thank you, Estelita Mendez MD Subjective Constitutional: Reports: no symptoms HEENT: Reports: no symptoms Cardiovascular: Reports: no symptoms Respiratory: Reports: no symptoms Gastrointestinal/Abdominal: Reports: no symptoms Genitourinary: Reports: no symptoms 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: Reports: no symptoms Endocrine: Reports: no symptoms Hematologic/Lymphatic: Reports: anemia Allergies: Coded Allergies: No Known Allergies (Unverified , 07/26/16) Objective Last 24 Hour Vital Signs Date Time Temp Pulse Resp B/P Pulse Ox O2 Delivery O2 Flow Rate FiO2 07/29/16 12:00 98.1 90 20 155/93 95 Nasal Cannula 3.0 07/29/16 11:00 80 15 156/82 100 Nasal Cannula 3.0 07/29/16 10:00 89 15 159/97 100 Nasal Cannula 3.0 07/29/16 09:00 83 15 153/96 100 Nasal Cannula 3.0 07/29/16 08:00 98.5 88 15 150/93 100 Nasal Cannula 3.0 07/29/16 08:00 90 07/29/16 07:00 85 15 158/96 100 Nasal Cannula 3.0 07/29/16 06:00 89 14 146/97 100 Nasal Cannula 3.0 07/29/16 05:00 92 12 111/60 96 Nasal Cannula 3.0 07/29/16 04:00 101 07/29/16 04:00 98.9 92 13 189/102 97 Nasal Cannula 3.0 07/29/16 03:00 95 16 158/89 98 Nasal Cannula 3.0 07/29/16 02:00 94 12 133/80 96 Nasal Cannula 3.0 07/29/16 01:00 97 15 165/83 98 Nasal Cannula 3.0 07/29/16 00:00 95 16 158/89 98 Nasal Cannula 3.0 07/29/16 00:00 122 07/28/16 23:00 98.9 92 11 129/82 96 Nasal Cannula 3.0 07/28/16 22:00 96 13 133/81 98 Nasal Cannula 3.0 07/28/16 21:15 143/86 07/28/16 21:00 96 13 133/81 98 Nasal Cannula 3.0 07/28/16 20:00 97 19 143/86 99 Nasal Cannula 3.0 07/28/16 20:00 136 07/28/16 19:00 98.9 98 27 142/77 99 Nasal Cannula 3.0 07/28/16 18:40 Nasal Cannula 3.0 32 07/28/16 18:40 96 Nasal Cannula 3.0 32 07/28/16 18:00 103 27 142/72 99 Nasal Cannula 3.0 07/28/16 17:00 104 27 147/75 100 Nasal Cannula 3.0 07/28/16 16:43 109 07/28/16 16:00 98.6 107 23 143/86 100 Nasal Cannula 3.0 07/28/16 15:00 111 27 142/82 100 Nasal Cannula 3.0 Intake and Output 07/28/16 07/29/16 19:00 07:00 Intake Total 1550 ml 1250 ml Output Total 960 ml 990 ml Balance 590 ml 260 ml IV Total 1550 ml 1250 ml Output Urine Total 700 ml 690 ml Gastric Drainage Total 160 ml Drainage Total 100 ml 300 ml Laboratory Tests 07/29/16 04:00: White Blood Count 10.0, Red Blood Count 3.16L, Hemoglobin 9.6L, Hematocrit 28.4L , Mean Corpuscular Volume 90, Mean Corpuscular Hemoglobin 30.5, Mean Corpuscular Hemoglobin Concent 33.9, Red Cell Distribution Width 12.5, Platelet Count 142L, Mean Platelet Volume 8.2, Neutrophils (%) (Auto) 84.2H, Lymphocytes (%) (Auto) 4.7L, Monocytes (%) (Auto) 10.7H, Eosinophils (%) (Auto) 0.1, Basophils (%) (Auto) 0.3, Sodium Level 146H, Potassium Level 4.4, Chloride Level 110H, Carbon Dioxide Level 21, Anion Gap 15, Blood Urea Nitrogen 55H, Creatinine 4.6H, Estimat Glomerular Filtration Rate 12.9, Glucose Level 169H, Uric Acid 7.2, Calcium Level 7.6L, Phosphorus Level 4.5, Magnesium Level 2.0, Total Bilirubin 0.8, Gamma Glutamyl Transpeptidase 60, Aspartate Amino Transf ( AST/SGOT) 176H, Alanine Aminotransferase (ALT/SGPT) 223H, Alkaline Phosphatase 72, Total Creatine Kinase 1041H, Creatine Kinase MB 9.4H, Troponin I 0.38*H, C- Reactive Protein, Quantitative 21.7H, Pro-B-Type Natriuretic Peptide 1185H, Total Protein 4.9L, Albumin 2.5L, Globulin 2.4, Albumin/Globulin Ratio 1.0, Lipase 11 07/29/16 06:00: Urine Random Sodium 57 07/29/16 10:50: Blood Urea Nitrogen 54H, Creatinine 4.8H, Estimat Glomerular Filtration Rate 12.3 Height (Feet): 5 Height (Inches): 6.00 Weight (Pounds): 162 General Appearance: no apparent distress EENT: TMs normal Cardiovascular: normal rate Respiratory/Chest: lungs clear Abdomen: non tender Extremities: non-tender Edema: no edema noted Leg (L), no edema noted Leg (R) Edema: mild edema Neurologic: no motor/sensory deficits Skin: warm/dry ESTELITA MENDEZ Jul 29, 2016 14:45
[2016-07-29 15:35] LABS: HEMOLYSIS 2; IRON 19 ug/dL (59-158); TOTAL IRON BINDING CAPACITY 119 ug/dL (250-400)
--- NOTE | 2016-07-29 15:35 | General Progress Note ---
Assessment/Plan Assessment/Plan Assessment - SBO - septic shock - ATN - abnormal LFT - ? shocked liver - lactic acidosis - s/p ex lap Recommendations NPO IVF abx PPI follow labs supportive ICU care surgical f/u no tube feeds Subjective Allergies: Coded Allergies: No Known Allergies (Unverified , 07/26/16) Subjective above all noted patient seen early am today extubated and responsive Objective Last 24 Hour Vital Signs Date Time Temp Pulse Resp B/P Pulse Ox O2 Delivery O2 Flow Rate FiO2 07/29/16 12:00 95 07/29/16 12:00 98.1 90 20 155/93 95 Nasal Cannula 3.0 07/29/16 11:00 80 15 156/82 100 Nasal Cannula 3.0 07/29/16 10:00 89 15 159/97 100 Nasal Cannula 3.0 07/29/16 09:00 83 15 153/96 100 Nasal Cannula 3.0 07/29/16 08:00 98.5 88 15 150/93 100 Nasal Cannula 3.0 07/29/16 08:00 90 07/29/16 07:00 85 15 158/96 100 Nasal Cannula 3.0 07/29/16 06:00 89 14 146/97 100 Nasal Cannula 3.0 07/29/16 05:00 92 12 111/60 96 Nasal Cannula 3.0 07/29/16 04:00 101 07/29/16 04:00 98.9 92 13 189/102 97 Nasal Cannula 3.0 07/29/16 03:00 95 16 158/89 98 Nasal Cannula 3.0 07/29/16 02:00 94 12 133/80 96 Nasal Cannula 3.0 07/29/16 01:00 97 15 165/83 98 Nasal Cannula 3.0 07/29/16 00:00 95 16 158/89 98 Nasal Cannula 3.0 07/29/16 00:00 122 07/28/16 23:00 98.9 92 11 129/82 96 Nasal Cannula 3.0 07/28/16 22:00 96 13 133/81 98 Nasal Cannula 3.0 07/28/16 21:15 143/86 07/28/16 21:00 96 13 133/81 98 Nasal Cannula 3.0 07/28/16 20:00 97 19 143/86 99 Nasal Cannula 3.0 07/28/16 20:00 136 07/28/16 19:00 98.9 98 27 142/77 99 Nasal Cannula 3.0 07/28/16 18:40 Nasal Cannula 3.0 32 07/28/16 18:40 96 Nasal Cannula 3.0 32 07/28/16 18:00 103 27 142/72 99 Nasal Cannula 3.0 07/28/16 17:00 104 27 147/75 100 Nasal Cannula 3.0 07/28/16 16:43 109 07/28/16 16:00 98.6 107 23 143/86 100 Nasal Cannula 3.0 Intake and Output 07/28/16 07/29/16 19:00 07:00 Intake Total 1550 ml 1250 ml Output Total 960 ml 990 ml Balance 590 ml 260 ml IV Total 1550 ml 1250 ml Output Urine Total 700 ml 690 ml Gastric Drainage Total 160 ml Drainage Total 100 ml 300 ml Laboratory Tests 07/29/16 04:00: White Blood Count 10.0, Red Blood Count 3.16L, Hemoglobin 9.6L, Hematocrit 28.4L , Mean Corpuscular Volume 90, Mean Corpuscular Hemoglobin 30.5, Mean Corpuscular Hemoglobin Concent 33.9, Red Cell Distribution Width 12.5, Platelet Count 142L, Mean Platelet Volume 8.2, Neutrophils (%) (Auto) 84.2H, Lymphocytes (%) (Auto) 4.7L, Monocytes (%) (Auto) 10.7H, Eosinophils (%) (Auto) 0.1, Basophils (%) (Auto) 0.3, Sodium Level 146H, Potassium Level 4.4, Chloride Level 110H, Carbon Dioxide Level 21, Anion Gap 15, Blood Urea Nitrogen 55H, Creatinine 4.6H, Estimat Glomerular Filtration Rate 12.9, Glucose Level 169H, Uric Acid 7.2, Calcium Level 7.6L, Phosphorus Level 4.5, Magnesium Level 2.0, Total Bilirubin 0.8, Gamma Glutamyl Transpeptidase 60, Aspartate Amino Transf ( AST/SGOT) 176H, Alanine Aminotransferase (ALT/SGPT) 223H, Alkaline Phosphatase 72, Total Creatine Kinase 1041H, Creatine Kinase MB 9.4H, Troponin I 0.38*H, C- Reactive Protein, Quantitative 21.7H, Pro-B-Type Natriuretic Peptide 1185H, Total Protein 4.9L, Albumin 2.5L, Globulin 2.4, Albumin/Globulin Ratio 1.0, Lipase 11 07/29/16 06:00: Urine Random Sodium 57 07/29/16 10:50: Blood Urea Nitrogen 54H, Creatinine 4.8H, Estimat Glomerular Filtration Rate 12.3 07/29/16 15:00: Troponin I [Pending], Iron Level [Pending], Unsaturated Iron Binding [Pending], Ferritin [Pending] Height (Feet): 5 Height (Inches): 6.00 Weight (Pounds): 162 Objective WDWN man NCAT , (+) NGT supple CTA RR abd mild distended, (+)large abd wound, dressing dry, (+) [place] no edema ALVAREZ MARTINEZ Jul 29, 2016 15:35
[2016-07-29 15:38] LABS: TROPONIN I 0.33 ng/mL (<=0.30)
[2016-07-29 15:46] LABS: FERRITIN 890 ng/mL (10-230)
[2016-07-29] MEDS: HYDROmorphone 1mg/ml Carpuject IVP PRN (19:41)
[2016-07-30] VITALS: BP 164/104
[2016-07-30] MEDS: Clindamycin 600mg 50 ML IV SCH ×3 (03:51→20:33)
[2016-07-30] MEDS: HYDROmorphone 1mg/ml Carpuject IVP PRN ×3 (03:52→20:32)
[2016-07-30 04:00] VITALS: BP 166/100
[2016-07-30 04:58] LABS: MEAN CORPUSCULAR HEMOGLOBIN 30.2 PG (27.0-31.0); MEAN CORPUSCULAR HGB CONC 33.1 G/DL (32.0-36.0); MEAN CORPUSCULAR VOLUME 91 FL (80-99); MEAN PLATELET VOLUME 7.8 FL (6.5-10.1); PLATELET COUNT 156 K/UL (150-450); RED BLOOD COUNT 3.12 M/UL (4.70-6.10); RED CELL DISTRIBUTION WIDTH 12.2 % (11.6-14.8); WHITE BLOOD COUNT 10.2 K/UL (4.8-10.8)
[2016-07-30 05:36] LABS: ALBUMIN/GLOBULIN RATIO 0.8 (1.0-2.7); CALCIUM 7.6 mg/dL (8.6-10.2); CREATININE 4.6 mg/dL (0.7-1.2); GLOMERULAR FILTRATION RATE 12.9 mL/min (>60); TOTAL PROTEIN 4.8 g/dL (6.6-8.7)
[2016-07-30] MEDS: ZOSYN IV SCH (06:01)
[2016-07-30] MEDS: D5W IV SCH (06:01)
[2016-07-30 07:12] LABS: PHOSPHORUS 3.5 mg/dL (2.5-4.8); URIC ACID 6.8 mg/dL (3.0-7.5)
--- NOTE | 2016-07-30 07:55 | General Progress Note ---
Assessment/Plan Assessment/Plan ASSESSMENT: 1. Leukocytosis. Likely 2/2 underlying infection. Peripheral smear has been within normal limits 2. Anemia 2/2 chronic disease, does not require iron 3. Sepsis, likely contributing to leukocytosis. 4. Abdominal pain due to small bowel obstruction. Now improved 5. Small bowel obstruction. status post exploratory laparotomy 6. Anemia 2/2 hemodilution RECOMMENDATIONS: 1. Monitor counts 2. Have reviewed anemia workup 3. Follow up on Surgery and ID recs 4. Imaging has been reviewed. 5. Transfuse if hgb <7. 6. Simethicone started for gas symptoms 7. staff Thank you, Estelita Mendez MD Subjective Constitutional: Reports: no symptoms HEENT: Reports: no symptoms Cardiovascular: Reports: no symptoms Respiratory: Reports: no symptoms Gastrointestinal/Abdominal: Reports: poor appetite Genitourinary: Reports: no symptoms 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: Reports: no symptoms Endocrine: Reports: no symptoms Hematologic/Lymphatic: Reports: anemia Allergies: Coded Allergies: No Known Allergies (Unverified , 07/26/16) Subjective no bleeding, no fevers or chills Objective Last 24 Hour Vital Signs Date Time Temp Pulse Resp B/P Pulse Ox O2 Delivery O2 Flow Rate FiO2 07/30/16 04:00 86 07/30/16 04:00 97.6 84 20 166/100 97 Nasal Cannula 3.0 07/30/16 00:00 98.4 89 18 164/104 96 Nasal Cannula 3.0 07/30/16 00:00 85 07/29/16 20:00 86 07/29/16 20:00 97.7 93 20 157/100 97 Nasal Cannula 3.0 07/29/16 19:18 97 Nasal Cannula 3.0 32 07/29/16 19:18 Nasal Cannula 3.0 32 07/29/16 17:31 98.2 91 18 160/90 96 Nasal Cannula 3.0 07/29/16 16:00 90 07/29/16 12:00 95 07/29/16 12:00 98.1 90 20 155/93 95 Nasal Cannula 3.0 07/29/16 11:00 80 15 156/82 100 Nasal Cannula 3.0 07/29/16 10:00 89 15 159/97 100 Nasal Cannula 3.0 07/29/16 09:00 83 15 153/96 100 Nasal Cannula 3.0 07/29/16 08:00 98.5 88 15 150/93 100 Nasal Cannula 3.0 07/29/16 08:00 90 Intake and Output 07/29/16 07/30/16 18:59 06:59 Intake Total 200 ml 705 ml Output Total 1470 ml 1690 ml Balance -1270 ml -985 ml IV Total 200 ml 705 ml Output Urine Total 1110 ml 1400 ml Gastric Drainage Total 0 ml Drainage Total 360 ml 290 ml # Bowel Movements 3 Laboratory Tests 07/29/16 10:50: Blood Urea Nitrogen 54H, Creatinine 4.8H, Estimat Glomerular Filtration Rate 12.3 07/29/16 15:00: Iron Level 19L, Total Iron Binding Capacity 119L, Percent Iron Saturation 16, Unsaturated Iron Binding 100L, Ferritin 890H, Troponin I 0.33*H 07/30/16 04:00: Blood Urea Nitrogen 51H, Creatinine 4.6H, Estimat Glomerular Filtration Rate 12.9, White Blood Count 10.2, Red Blood Count 3.12L, Hemoglobin 9.4L, Hematocrit 28.5L, Mean Corpuscular Volume 91, Mean Corpuscular Hemoglobin 30.2, Mean Corpuscular Hemoglobin Concent 33.1, Red Cell Distribution Width 12.2, Platelet Count 156, Mean Platelet Volume 7.8, Neutrophils (%) (Auto) , Lymphocytes (%) (Auto) , Monocytes (%) (Auto) , Eosinophils (%) (Auto) , Basophils (%) (Auto) , Neutrophils % (Manual) [Pending], Lymphocytes % (Manual) [Pending], Platelet Estimate [Pending], Platelet Morphology [Pending], Sodium Level 143, Potassium Level 4.0, Chloride Level 110H, Carbon Dioxide Level 22, Anion Gap 11, Glucose Level 165H, Uric Acid 6.8, Calcium Level 7.6L, Phosphorus Level 3.5, Magnesium Level 2.0, Total Bilirubin 0.9, Gamma Glutamyl Transpeptidase 173H, Aspartate Amino Transf (AST/SGOT) 89H, Alanine Aminotransferase (ALT/SGPT) 127H, Alkaline Phosphatase 190H, C-Reactive Protein , Quantitative 10.0H, Pro-B-Type Natriuretic Peptide 2534H, Total Protein 4.8L, Albumin 2.2L, Globulin 2.6, Albumin/Globulin Ratio 0.8L Height (Feet): 5 Height (Inches): 6.00 Weight (Pounds): 162 General Appearance: no apparent distress EENT: TMs normal Neck: supple Cardiovascular: normal rate Respiratory/Chest: no respiratory distress Abdomen: soft Extremities: normal range of motion Edema: 1+ Leg (L), 1+ Leg (R) Edema: mild edema Neurologic: alert Skin: warm/dry ESTELITA MENDEZ Jul 30, 2016 07:54
[2016-07-30 08:00] VITALS: BP 153/89
[2016-07-30] MEDS ORDERED: Simethicone 80mg tab NG PRN (08:00)
[2016-07-30] MEDS: Pantoprazole Inj IVP SCH ×2 (09:04→20:33)
[2016-07-30] MEDS: Enoxaparin 30mg Inj SUBQ SCH (09:04)
[2016-07-30 09:18] LABS: BAND NEUTROPHILS % (MANUAL) 6 % (0-8); LYMPHOCYTES % (MANUAL) 5 % (20-45); NEUTROPHILS % (MANUAL) 82 % (45-75); TOTAL CELLS COUNTED 100
[2016-07-30 09:19] LABS: BASOPHILS % (MANUAL) 0 % (0-2); EOSINOPHILS % (MANUAL) 0 % (0-3); HYPOCHROMASIA 1+; PLATELET ESTIMATE ADEQUATE; PLATELET MORPHOLOGY NORMAL
--- NOTE | 2016-07-30 09:59 | General Progress Note ---
Assessment/Plan Assessment/Plan Assessment - SBO - septic shock - ATN - abnormal LFT - ? shocked liver - lactic acidosis - s/p ex lap Recommendations NPO IVF abx PPI follow labs supportive ICU care surgical f/u no tube feeds Subjective Allergies: Coded Allergies: No Known Allergies (Unverified , 07/26/16) Subjective above all noted c/o wound pain seen in [facility] Objective Last 24 Hour Vital Signs Date Time Temp Pulse Resp B/P Pulse Ox O2 Delivery O2 Flow Rate FiO2 07/30/16 04:00 86 07/30/16 04:00 97.6 84 20 166/100 97 Nasal Cannula 3.0 07/30/16 00:00 98.4 89 18 164/104 96 Nasal Cannula 3.0 07/30/16 00:00 85 07/29/16 20:00 86 07/29/16 20:00 97.7 93 20 157/100 97 Nasal Cannula 3.0 07/29/16 19:18 97 Nasal Cannula 3.0 32 07/29/16 19:18 Nasal Cannula 3.0 32 07/29/16 17:31 98.2 91 18 160/90 96 Nasal Cannula 3.0 07/29/16 16:00 90 07/29/16 12:00 95 07/29/16 12:00 98.1 90 20 155/93 95 Nasal Cannula 3.0 07/29/16 11:00 80 15 156/82 100 Nasal Cannula 3.0 07/29/16 10:00 89 15 159/97 100 Nasal Cannula 3.0 Intake and Output 07/29/16 07/30/16 19:00 07:00 Intake Total 175 ml 760 ml Output Total 1440 ml 1690 ml Balance -1265 ml -930 ml IV Total 175 ml 760 ml Output Urine Total 1080 ml 1400 ml Gastric Drainage Total 0 ml Drainage Total 360 ml 290 ml # Bowel Movements 3 Laboratory Tests 07/29/16 10:50: Blood Urea Nitrogen 54H, Creatinine 4.8H, Estimat Glomerular Filtration Rate 12.3 07/29/16 15:00: Iron Level 19L, Total Iron Binding Capacity 119L, Percent Iron Saturation 16, Unsaturated Iron Binding 100L, Ferritin 890H, Troponin I 0.33*H 07/30/16 04:00: Blood Urea Nitrogen 51H, Creatinine 4.6H, Estimat Glomerular Filtration Rate 12.9, White Blood Count 10.2, Red Blood Count 3.12L, Hemoglobin 9.4L, Hematocrit 28.5L, Mean Corpuscular Volume 91, Mean Corpuscular Hemoglobin 30.2, Mean Corpuscular Hemoglobin Concent 33.1, Red Cell Distribution Width 12.2, Platelet Count 156, Mean Platelet Volume 7.8, Neutrophils (%) (Auto) , Lymphocytes (%) (Auto) , Monocytes (%) (Auto) , Eosinophils (%) (Auto) , Basophils (%) (Auto) , Differential Total Cells Counted 100, Neutrophils % ( Manual) 82H, Lymphocytes % (Manual) 5L, Monocytes % (Manual) 7, Eosinophils % ( Manual) 0, Basophils % (Manual) 0, Band Neutrophils 6, Platelet Estimate Adequate, Platelet Morphology Normal, Hypochromasia 1+, Sodium Level 143, Potassium Level 4.0, Chloride Level 110H, Carbon Dioxide Level 22, Anion Gap 11 , Glucose Level 165H, Uric Acid 6.8, Calcium Level 7.6L, Phosphorus Level 3.5, Magnesium Level 2.0, Total Bilirubin 0.9, Gamma Glutamyl Transpeptidase 173H, Aspartate Amino Transf (AST/SGOT) 89H, Alanine Aminotransferase (ALT/SGPT) 127H , Alkaline Phosphatase 190H, C-Reactive Protein, Quantitative 10.0H, Pro-B-Type Natriuretic Peptide 2534H, Total Protein 4.8L, Albumin 2.2L, Globulin 2.6, Albumin/Globulin Ratio 0.8L Height (Feet): 5 Height (Inches): 6.00 Weight (Pounds): 162 Objective WDWN man NCAT , (+) NGT supple CTA RR abd mild distended, (+)large abd wound, dressing dry no edema ALVAREZ MARTINEZ Jul 30, 2016 09:59
--- NOTE | 2016-07-30 10:08 | Diagnostic Imaging Report ---
Indications: Elevated renal function tests Technique: Transabdominal real-time grayscale and duplex Doppler imaging of the kidneys, retroperitoneum, and urinary bladder was performed Findings: Comparison: CT abdomen pelvis 07/26/16 Right kidney measures 12 cm in length. Normal contour, echotexture, cortical thickness. No stones, other focal lesions, hydronephrosis, or obvious perinephric abnormalities. Left kidney measures 11.4 cm in length. Normal contour, echotexture, cortical thickness. No stones, other focal lesions, hydronephrosis, or obvious perinephric abnormalities. The intrahepatic portion of inferior vena cava is patent and normal caliber. Minimal free fluid in Morison's pouch. Left pleural effusion. The urinary bladder is collapsed around Canales catheter.. IMPRESSION: Sonographically unremarkable kidneys Trace ascites, nonspecific, also previously demonstrated Left pleural effusion, nonspecific, new
--- NOTE | 2016-07-30 10:08 | General Progress Note ---
Assessment/Plan Assessment/Plan (1) Small bowel obstruction (2) Intractable abdominal pain (3) Gangrene of the small bowel (4) S/p Exploratory Laparotomy resection of the small bowel with primary anastomosis. Pt will be continued on Dilaudid as needed. Pt was d/w Dr. Aguirre and he concurred. Subjective Date patient seen: Jul 30, 2016 Time patient seen: 07:45 - am Constitutional: Reports: weakness, Denies: chills, diaphoresis, fever, malaise HEENT: Denies: blurred vision, double vision, ear discharge, ear pain, eye pain , mouth pain, mouth swelling, nose congestion, nose pain, tearing, throat pain, throat swelling Cardiovascular: Denies: chest pain, edema, irregular heart rate, lightheadedness, palpitations, syncope Respiratory: Reports: shortness of breath, Denies: SOB at rest, SOB with excertion, cough, orthopnea, sputum, stridor, wheezing Gastrointestinal/Abdominal: Reports: abdomen distended, abdominal pain, nausea , Denies: black stools, blood in stool, constipated, diarrhea, difficulty swallowing, poor appetite, poor fluid intake, rectal bleeding, tarry stools, vomiting Genitourinary: Denies: burning, discharge, flank pain, frequency, hematuria, incontinence, pain, urgency 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: Reports: weakness, Denies: anxiety, depressed, emotional problems, headache, numbness, paresthesia, pre-existing deficit, seizure, tingling, tremors Endocrine: Denies: excessive sweating, flushing, increased hunger, increased thirst, increased urine, intolerance to cold, intolerance to heat, unexplained weight gain, unexplained weight loss Hematologic/Lymphatic: Denies: anemia, easy bleeding, easy bruising Allergies: Coded Allergies: No Known Allergies (Unverified , 07/26/16) Subjective Pt has been transferred to [facility] and taken off the Vent. Family at bedside. He continues to have pain, I explained to pt to use the Dilaudid sparingly. He understands. Objective Last 24 Hour Vital Signs Date Time Temp Pulse Resp B/P Pulse Ox O2 Delivery O2 Flow Rate FiO2 07/30/16 04:00 86 07/30/16 04:00 97.6 84 20 166/100 97 Nasal Cannula 3.0 07/30/16 00:00 98.4 89 18 164/104 96 Nasal Cannula 3.0 07/30/16 00:00 85 07/29/16 20:00 86 07/29/16 20:00 97.7 93 20 157/100 97 Nasal Cannula 3.0 07/29/16 19:18 97 Nasal Cannula 3.0 32 07/29/16 19:18 Nasal Cannula 3.0 32 07/29/16 17:31 98.2 91 18 160/90 96 Nasal Cannula 3.0 07/29/16 16:00 90 07/29/16 12:00 95 07/29/16 12:00 98.1 90 20 155/93 95 Nasal Cannula 3.0 07/29/16 11:00 80 15 156/82 100 Nasal Cannula 3.0 Intake and Output 07/29/16 07/30/16 19:00 07:00 Intake Total 175 ml 760 ml Output Total 1440 ml 1690 ml Balance -1265 ml -930 ml IV Total 175 ml 760 ml Output Urine Total 1080 ml 1400 ml Gastric Drainage Total 0 ml Drainage Total 360 ml 290 ml # Bowel Movements 3 Laboratory Tests 07/29/16 10:50: Blood Urea Nitrogen 54H, Creatinine 4.8H, Estimat Glomerular Filtration Rate 12.3 07/29/16 15:00: Iron Level 19L, Total Iron Binding Capacity 119L, Percent Iron Saturation 16, Unsaturated Iron Binding 100L, Ferritin 890H, Troponin I 0.33*H 07/30/16 04:00: Blood Urea Nitrogen 51H, Creatinine 4.6H, Estimat Glomerular Filtration Rate 12.9, White Blood Count 10.2, Red Blood Count 3.12L, Hemoglobin 9.4L, Hematocrit 28.5L, Mean Corpuscular Volume 91, Mean Corpuscular Hemoglobin 30.2, Mean Corpuscular Hemoglobin Concent 33.1, Red Cell Distribution Width 12.2, Platelet Count 156, Mean Platelet Volume 7.8, Neutrophils (%) (Auto) , Lymphocytes (%) (Auto) , Monocytes (%) (Auto) , Eosinophils (%) (Auto) , Basophils (%) (Auto) , Differential Total Cells Counted 100, Neutrophils % ( Manual) 82H, Lymphocytes % (Manual) 5L, Monocytes % (Manual) 7, Eosinophils % ( Manual) 0, Basophils % (Manual) 0, Band Neutrophils 6, Platelet Estimate Adequate, Platelet Morphology Normal, Hypochromasia 1+, Sodium Level 143, Potassium Level 4.0, Chloride Level 110H, Carbon Dioxide Level 22, Anion Gap 11 , Glucose Level 165H, Uric Acid 6.8, Calcium Level 7.6L, Phosphorus Level 3.5, Magnesium Level 2.0, Total Bilirubin 0.9, Gamma Glutamyl Transpeptidase 173H, Aspartate Amino Transf (AST/SGOT) 89H, Alanine Aminotransferase (ALT/SGPT) 127H , Alkaline Phosphatase 190H, C-Reactive Protein, Quantitative 10.0H, Pro-B-Type Natriuretic Peptide 2534H, Total Protein 4.8L, Albumin 2.2L, Globulin 2.6, Albumin/Globulin Ratio 0.8L Height (Feet): 5 Height (Inches): 6.00 Weight (Pounds): 162 Objective General Appearance: alert EENT: PERRL/EOMI Neck: non-tender, supple Cardiovascular: normal rate, regular rhythm Respiratory/Chest: lungs clear Abdomen: other - tenderness to palpation bandages applied Extremities: normal inspection Neurologic: alert, responsive Skin: warm/dry SHA BOSE N. P.Shaun Jul 30, 2016 10:08
--- NOTE | 2016-07-30 10:43 | General Progress Note ---
Assessment/Plan Status: unchanged Assessment/Plan status: Septic Shock leading to acute renal failure- Cr leveling Abdominal Surgery 07/26/16 then again 05/27 Plan; post op care- Fluids Antibiotics- Protonix IV monitor renal parameters- discussed with misha daughter Jackie Subjective ROS Limited/Unobtainable: No Constitutional: Reports: malaise, weakness Gastrointestinal/Abdominal: Reports: abdomen distended - and discomfort Allergies: Coded Allergies: No Known Allergies (Unverified , 07/26/16) Objective Last 24 Hour Vital Signs Date Time Temp Pulse Resp B/P Pulse Ox O2 Delivery O2 Flow Rate FiO2 07/30/16 08:00 76 07/30/16 08:00 98.2 84 20 153/89 98 Nasal Cannula 2.0 07/30/16 07:51 Nasal Cannula 3.0 32 07/30/16 07:50 97 Nasal Cannula 3.0 32 07/30/16 04:00 86 07/30/16 04:00 97.6 84 20 166/100 97 Nasal Cannula 3.0 07/30/16 00:00 98.4 89 18 164/104 96 Nasal Cannula 3.0 07/30/16 00:00 85 07/29/16 20:00 86 07/29/16 20:00 97.7 93 20 157/100 97 Nasal Cannula 3.0 07/29/16 19:18 97 Nasal Cannula 3.0 32 07/29/16 19:18 Nasal Cannula 3.0 32 07/29/16 17:31 98.2 91 18 160/90 96 Nasal Cannula 3.0 07/29/16 16:00 90 07/29/16 12:00 95 07/29/16 12:00 98.1 90 20 155/93 95 Nasal Cannula 3.0 07/29/16 11:00 80 15 156/82 100 Nasal Cannula 3.0 Intake and Output 07/29/16 07/30/16 19:00 07:00 Intake Total 175 ml 760 ml Output Total 1440 ml 1690 ml Balance -1265 ml -930 ml IV Total 175 ml 760 ml Output Urine Total 1080 ml 1400 ml Gastric Drainage Total 0 ml Drainage Total 360 ml 290 ml # Bowel Movements 3 Laboratory Tests 07/29/16 10:50: Blood Urea Nitrogen 54H, Creatinine 4.8H, Estimat Glomerular Filtration Rate 12.3 07/29/16 15:00: Iron Level 19L, Total Iron Binding Capacity 119L, Percent Iron Saturation 16, Unsaturated Iron Binding 100L, Ferritin 890H, Troponin I 0.33*H 07/30/16 04:00: Blood Urea Nitrogen 51H, Creatinine 4.6H, Estimat Glomerular Filtration Rate 12.9, White Blood Count 10.2, Red Blood Count 3.12L, Hemoglobin 9.4L, Hematocrit 28.5L, Mean Corpuscular Volume 91, Mean Corpuscular Hemoglobin 30.2, Mean Corpuscular Hemoglobin Concent 33.1, Red Cell Distribution Width 12.2, Platelet Count 156, Mean Platelet Volume 7.8, Neutrophils (%) (Auto) , Lymphocytes (%) (Auto) , Monocytes (%) (Auto) , Eosinophils (%) (Auto) , Basophils (%) (Auto) , Differential Total Cells Counted 100, Neutrophils % ( Manual) 82H, Lymphocytes % (Manual) 5L, Monocytes % (Manual) 7, Eosinophils % ( Manual) 0, Basophils % (Manual) 0, Band Neutrophils 6, Platelet Estimate Adequate, Platelet Morphology Normal, Hypochromasia 1+, Sodium Level 143, Potassium Level 4.0, Chloride Level 110H, Carbon Dioxide Level 22, Anion Gap 11 , Glucose Level 165H, Uric Acid 6.8, Calcium Level 7.6L, Phosphorus Level 3.5, Magnesium Level 2.0, Total Bilirubin 0.9, Gamma Glutamyl Transpeptidase 173H, Aspartate Amino Transf (AST/SGOT) 89H, Alanine Aminotransferase (ALT/SGPT) 127H , Alkaline Phosphatase 190H, C-Reactive Protein, Quantitative 10.0H, Pro-B-Type Natriuretic Peptide 2534H, Total Protein 4.8L, Albumin 2.2L, Globulin 2.6, Albumin/Globulin Ratio 0.8L Height (Feet): 5 Height (Inches): 6.00 Weight (Pounds): 162 General Appearance: mild distress Cardiovascular: regular rhythm, tachycardia Respiratory/Chest: decreased breath sounds Abdomen: distended Objective no other changes in PE REBECCA SCHULTE Jul 30, 2016 10:43
[2016-07-30 12:00] VITALS: BP 178/94
--- NOTE | 2016-07-30 12:29 | Pulmonology Progress Note ---
Assessment/Plan Problems: (1) SBO (small bowel obstruction) (2) MIGNON (acute kidney injury) (3) Ileus (4) Enteritis (5) Non-ST elevation (NSTEMI) myocardial infarction Assessment/Plan improving continue antibiotics check electrolytes Keep NPO keep same IV fluids check electrolytes daily Subjective ROS Limited/Unobtainable: No Interval Events: doing better, large diarrhia, passing gas Allergies: Coded Allergies: No Known Allergies (Unverified , 07/26/16) Objective Last 24 Hour Vital Signs Date Time Temp Pulse Resp B/P Pulse Ox O2 Delivery O2 Flow Rate FiO2 07/30/16 08:00 76 07/30/16 08:00 98.2 84 20 153/89 98 Nasal Cannula 2.0 07/30/16 07:51 Nasal Cannula 3.0 32 07/30/16 07:50 97 Nasal Cannula 3.0 32 07/30/16 04:00 86 07/30/16 04:00 97.6 84 20 166/100 97 Nasal Cannula 3.0 07/30/16 00:00 98.4 89 18 164/104 96 Nasal Cannula 3.0 07/30/16 00:00 85 07/29/16 20:00 86 07/29/16 20:00 97.7 93 20 157/100 97 Nasal Cannula 3.0 07/29/16 19:18 97 Nasal Cannula 3.0 32 07/29/16 19:18 Nasal Cannula 3.0 32 07/29/16 17:31 98.2 91 18 160/90 96 Nasal Cannula 3.0 07/29/16 16:00 90 Intake and Output 07/29/16 07/30/16 19:00 07:00 Intake Total 175 ml 760 ml Output Total 1440 ml 1690 ml Balance -1265 ml -930 ml IV Total 175 ml 760 ml Output Urine Total 1080 ml 1400 ml Gastric Drainage Total 0 ml Drainage Total 360 ml 290 ml # Bowel Movements 3 General Appearance: WD/WN HEENT: normocephalic, atraumatic Respiratory/Chest: chest wall non-tender, lungs clear Cardiovascular: normal peripheral pulses, normal rate Abdomen: normal bowel sounds, soft, non tender Genitourinary: normal external genitalia Extremities: no cyanosis 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: meat wrapper II-XII grossly normal, no motor/sensory deficits Microbiology Date/Time Source Procedure Growth Status 07/27/16 21:00 Abdominal Fluid Gram Stain - Final Resulted 07/27/16 21:00 Abdominal Fluid Aerobic Culture - Preliminary NO GROWTH AFTER 24 HOURS Resulted 07/27/16 21:00 Abdominal Fluid Anaerobic Culture - Preliminary NO GROWTH AFTER 48 HOURS Resulted Laboratory Tests 07/29/16 15:00: Iron Level 19L, Total Iron Binding Capacity 119L, Percent Iron Saturation 16, Unsaturated Iron Binding 100L, Ferritin 890H, Troponin I 0.33*H 07/30/16 04:00: White Blood Count 10.2, Red Blood Count 3.12L, Hemoglobin 9.4L, Hematocrit 28.5L , Mean Corpuscular Volume 91, Mean Corpuscular Hemoglobin 30.2, Mean Corpuscular Hemoglobin Concent 33.1, Red Cell Distribution Width 12.2, Platelet Count 156, Mean Platelet Volume 7.8, Neutrophils (%) (Auto) , Lymphocytes (%) ( Auto) , Monocytes (%) (Auto) , Eosinophils (%) (Auto) , Basophils (%) (Auto) , Differential Total Cells Counted 100, Neutrophils % (Manual) 82H, Lymphocytes % (Manual) 5L, Monocytes % (Manual) 7, Eosinophils % (Manual) 0, Basophils % ( Manual) 0, Band Neutrophils 6, Platelet Estimate Adequate, Platelet Morphology Normal, Hypochromasia 1+, Sodium Level 143, Potassium Level 4.0, Chloride Level 110H, Carbon Dioxide Level 22, Anion Gap 11, Blood Urea Nitrogen 51H, Creatinine 4.6H, Estimat Glomerular Filtration Rate 12.9, Glucose Level 165H, Uric Acid 6.8, Calcium Level 7.6L, Phosphorus Level 3.5, Magnesium Level 2.0, Total Bilirubin 0.9, Gamma Glutamyl Transpeptidase 173H, Aspartate Amino Transf (AST/SGOT) 89H, Alanine Aminotransferase (ALT/SGPT) 127H, Alkaline Phosphatase 190H, C-Reactive Protein, Quantitative 10.0H, Pro-B-Type Natriuretic Peptide 2534H, Total Protein 4.8L, Albumin 2.2L, Globulin 2.6, Albumin/Globulin Ratio 0.8L Current Medications Medications (Trade) Dose Ordered Sig/Arti Route PRN Reason Start Time Stop Time Status Last Admin Dose Admin Acetaminophen (Tylenol) 650 mg Q4H PRN RECTAL FEVER 07/29/16 13:45 08/28/16 13:44 Clindamycin HCl/ Dextrose 50 ml @ 100 mls/hr Q8HR@0400,1200,2000 IV 07/29/16 12:00 08/05/16 11:59 07/30/16 11:47 Dextrose (D5W 1000ml) 1,000 ml @ 100 mls/hr Q10H IV 07/29/16 13:00 08/28/16 12:59 07/30/16 08:46 Enoxaparin Sodium (Lovenox) 30 mg DAILY SUBQ 07/30/16 09:00 08/29/16 08:59 07/30/16 09:04 Hydromorphone HCl (Dilaudid) 0.5 mg Q3H PRN IVP Pain Score 1-3 07/29/16 13:45 08/05/16 13:44 Hydromorphone HCl (Dilaudid) 1 mg Q3H PRN IVP pain score 4-6 07/29/16 13:45 08/05/16 13:44 07/30/16 11:52 Hydromorphone HCl (Dilaudid) 2 mg Q3H PRN IVP pain score 7-10 07/29/16 13:45 08/05/16 13:44 Metoclopramide HCl (Reglan) 10 mg Q6H PRN IVP Nausea & Vomiting 07/29/16 13:00 08/28/16 12:59 Pantoprazole (Protonix) 40 mg Q12HR IVP 07/29/16 21:00 08/28/16 20:59 07/30/16 09:04 Piperacillin Sod/ Tazobactam Sod/ Dextrose (Zosyn/D5W 100ml) 110 ml @ 27.5 mls/hr Q12HR@0600,1800 IVPB 07/30/16 18:00 08/06/16 17:59 Simethicone 80 mg 80 mg QIDPRN PRN NG GAS PAIN 07/30/16 08:00 08/29/16 07:59 07/30/16 11:00 MAIKEL ESPINOSA Jul 30, 2016 12:29
--- NOTE | 2016-07-30 13:11 | General Progress Note ---
Assessment/Plan Problem List: (1) Ileus ICD Codes: K56.7 - Ileus, unspecified SNOMED: 239934488 (2) Sepsis ICD Codes: A41.9 - Sepsis, unspecified organism SNOMED: 61524622 (3) Abdominal pain ICD Codes: R10.9 - Unspecified abdominal pain SNOMED: 15642804 (4) SBO (small bowel obstruction) ICD Codes: K56.69 - Other intestinal obstruction SNOMED: 090091247 (5) Abdominal gas pain ICD Codes: R14.1 - Gas pain SNOMED: 96665419 (6) Enteritis ICD Codes: K52.9 - Noninfective gastroenteritis and colitis, unspecified SNOMED: 62301926 Status: progressing Assessment/Plan sbo s/p exploratory lap by dr yayo atkinson closely r/o septic shock lactic acidosis decreased urine output abx per id afebrile needs iv fluid Subjective ROS Limited/Unobtainable: Yes Allergies: Coded Allergies: No Known Allergies (Unverified , 07/26/16) Objective Last 24 Hour Vital Signs Date Time Temp Pulse Resp B/P Pulse Ox O2 Delivery O2 Flow Rate FiO2 07/30/16 08:00 76 07/30/16 08:00 98.2 84 20 153/89 98 Nasal Cannula 2.0 07/30/16 07:51 Nasal Cannula 3.0 32 07/30/16 07:50 97 Nasal Cannula 3.0 32 07/30/16 04:00 86 07/30/16 04:00 97.6 84 20 166/100 97 Nasal Cannula 3.0 07/30/16 00:00 98.4 89 18 164/104 96 Nasal Cannula 3.0 07/30/16 00:00 85 07/29/16 20:00 86 07/29/16 20:00 97.7 93 20 157/100 97 Nasal Cannula 3.0 07/29/16 19:18 97 Nasal Cannula 3.0 32 07/29/16 19:18 Nasal Cannula 3.0 32 07/29/16 17:31 98.2 91 18 160/90 96 Nasal Cannula 3.0 07/29/16 16:00 90 Intake and Output 07/29/16 07/30/16 19:00 07:00 Intake Total 175 ml 760 ml Output Total 1440 ml 1690 ml Balance -1265 ml -930 ml IV Total 175 ml 760 ml Output Urine Total 1080 ml 1400 ml Gastric Drainage Total 0 ml Drainage Total 360 ml 290 ml # Bowel Movements 3 Laboratory Tests 07/29/16 15:00: Iron Level 19L, Total Iron Binding Capacity 119L, Percent Iron Saturation 16, Unsaturated Iron Binding 100L, Ferritin 890H, Troponin I 0.33*H 07/30/16 04:00: White Blood Count 10.2, Red Blood Count 3.12L, Hemoglobin 9.4L, Hematocrit 28.5L , Mean Corpuscular Volume 91, Mean Corpuscular Hemoglobin 30.2, Mean Corpuscular Hemoglobin Concent 33.1, Red Cell Distribution Width 12.2, Platelet Count 156, Mean Platelet Volume 7.8, Neutrophils (%) (Auto) , Lymphocytes (%) ( Auto) , Monocytes (%) (Auto) , Eosinophils (%) (Auto) , Basophils (%) (Auto) , Differential Total Cells Counted 100, Neutrophils % (Manual) 82H, Lymphocytes % (Manual) 5L, Monocytes % (Manual) 7, Eosinophils % (Manual) 0, Basophils % ( Manual) 0, Band Neutrophils 6, Platelet Estimate Adequate, Platelet Morphology Normal, Hypochromasia 1+, Sodium Level 143, Potassium Level 4.0, Chloride Level 110H, Carbon Dioxide Level 22, Anion Gap 11, Blood Urea Nitrogen 51H, Creatinine 4.6H, Estimat Glomerular Filtration Rate 12.9, Glucose Level 165H, Uric Acid 6.8, Calcium Level 7.6L, Phosphorus Level 3.5, Magnesium Level 2.0, Total Bilirubin 0.9, Gamma Glutamyl Transpeptidase 173H, Aspartate Amino Transf (AST/SGOT) 89H, Alanine Aminotransferase (ALT/SGPT) 127H, Alkaline Phosphatase 190H, C-Reactive Protein, Quantitative 10.0H, Pro-B-Type Natriuretic Peptide 2534H, Total Protein 4.8L, Albumin 2.2L, Globulin 2.6, Albumin/Globulin Ratio 0.8L Height (Feet): 5 Height (Inches): 6.00 Weight (Pounds): 162 General Appearance: confused Cardiovascular: normal rate Respiratory/Chest: lungs clear Abdomen: soft Teo Love MD Jul 30, 2016 13:11
--- NOTE | 2016-07-30 15:43 | Infectious Diseases Prog Note ---
Assessment/Plan Problems: (1) Septic shock Assessment & Plan: improving, with IVF , off pressor today , will continue clindamycin and zosyn for now, blood culture is negative so far , and abdominal fluids culture showed no growth (2) SBO (small bowel obstruction) Assessment & Plan: S/P EX LAP , still has ileus, continue IVF, and pain management , general surgery is following (3) Abdominal pain Assessment & Plan: continue pain management, surgery is following (4) MIGNON (acute kidney injury) Assessment & Plan: due to sepsis and hypotension, continue IVF, titrate to keep SBP >100, renal is following (5) Ileus Assessment & Plan: due to EX LAP, improved, had large bowel movement with dark stool. Subjective Gastrointestinal/Abdominal: Reports: blood in stool, diarrhea, other - pain Allergies: Coded Allergies: No Known Allergies (Unverified , 07/26/16) All Systems: reviewed and negative except above Subjective he passed dark stool, had large bowel movement , no fever or chills, no cough or SOB, has abdominal pain. Objective Vital Signs Last 24 Hour Vital Signs Date Time Temp Pulse Resp B/P Pulse Ox O2 Delivery O2 Flow Rate FiO2 07/30/16 13:57 97.0 07/30/16 12:00 97.9 97 20 178/94 99 Nasal Cannula 2.0 07/30/16 12:00 90 07/30/16 08:00 76 07/30/16 08:00 98.2 84 20 153/89 98 Nasal Cannula 2.0 07/30/16 07:51 Nasal Cannula 3.0 32 07/30/16 07:50 97 Nasal Cannula 3.0 32 07/30/16 04:00 86 07/30/16 04:00 97.6 84 20 166/100 97 Nasal Cannula 3.0 07/30/16 00:00 98.4 89 18 164/104 96 Nasal Cannula 3.0 07/30/16 00:00 85 07/29/16 20:00 86 07/29/16 20:00 97.7 93 20 157/100 97 Nasal Cannula 3.0 07/29/16 19:18 97 Nasal Cannula 3.0 32 07/29/16 19:18 Nasal Cannula 3.0 32 07/29/16 17:31 98.2 91 18 160/90 96 Nasal Cannula 3.0 07/29/16 16:00 90 Height (Feet): 5 Height (Inches): 6.00 Weight (Pounds): 162 General Appearance: WD/WN, no acute distress HEENT: normocephalic, atraumatic, anicteric, mucous membranes moist Respiratory/Chest: chest wall non-tender, normal breath sounds, no respiratory distress, no accessory muscle use Cardiovascular: normal peripheral pulses, normal rate, regular rhythm, no gallop/murmur Abdomen: soft, non tender, no organomegaly, non distended, no mass, no scars, hypoactive bowel sounds, distended Extremities: no cyanosis, no clubbing Skin: no rash, no lesions Microbiology Date/Time Source Procedure Growth Status 07/27/16 21:00 Abdominal Fluid Gram Stain - Final Resulted 07/27/16 21:00 Abdominal Fluid Aerobic Culture - Preliminary NO GROWTH AFTER 24 HOURS Resulted 07/27/16 21:00 Abdominal Fluid Anaerobic Culture - Preliminary NO GROWTH AFTER 48 HOURS Resulted Laboratory Tests Test 07/30/16 04:00 White Blood Count 10.2 K/UL (4.8-10.8) Red Blood Count 3.12 M/UL (4.70-6.10) L Hemoglobin 9.4 G/DL (14.2-18.0) L Hematocrit 28.5 % (42.0-52.0) L Mean Corpuscular Volume 91 FL (80-99) Mean Corpuscular Hemoglobin 30.2 PG (27.0-31.0) Mean Corpuscular Hemoglobin Concent 33.1 G/DL (32.0-36.0) Red Cell Distribution Width 12.2 % (11.6-14.8) Platelet Count 156 K/UL (150-450) Mean Platelet Volume 7.8 FL (6.5-10.1) Neutrophils (%) (Auto) % (45.0-75.0) Lymphocytes (%) (Auto) % (20.0-45.0) Monocytes (%) (Auto) % (1.0-10.0) Eosinophils (%) (Auto) % (0.0-3.0) Basophils (%) (Auto) % (0.0-2.0) Differential Total Cells Counted 100 Neutrophils % (Manual) 82 % (45-75) H Lymphocytes % (Manual) 5 % (20-45) L Monocytes % (Manual) 7 % (1-10) Eosinophils % (Manual) 0 % (0-3) Basophils % (Manual) 0 % (0-2) Band Neutrophils 6 % (0-8) Platelet Estimate Adequate Platelet Morphology Normal Hypochromasia 1+ Sodium Level 143 mEQ/L (135-145) Potassium Level 4.0 mEQ/L (3.4-4.9) Chloride Level 110 mEQ/L (98-107) H Carbon Dioxide Level 22 mEQ/L (20-30) Anion Gap 11 (5-15) Blood Urea Nitrogen 51 mg/dL (7-23) H Creatinine 4.6 mg/dL (0.7-1.2) H Estimat Glomerular Filtration Rate 12.9 mL/min (>60) Glucose Level 165 mg/dL (74-106) H Uric Acid 6.8 mg/dL (3.0-7.5) Calcium Level 7.6 mg/dL (8.6-10.2) L Phosphorus Level 3.5 mg/dL (2.5-4.8) Magnesium Level 2.0 mg/dL (1.7-2.5) Total Bilirubin 0.9 mg/dL (0.0-1.2) Gamma Glutamyl Transpeptidase 173 U/L (8-61) H Aspartate Amino Transf (AST/SGOT) 89 U/L (5-40) H Alanine Aminotransferase (ALT/SGPT) 127 U/L (3-41) H Alkaline Phosphatase 190 U/L (40-129) H C-Reactive Protein, Quantitative 10.0 mg/dL (< 0.5) H Pro-B-Type Natriuretic Peptide 2534 pg/mL (0-125) H Total Protein 4.8 g/dL (6.6-8.7) L Albumin 2.2 g/dL (3.5-5.2) L Globulin 2.6 g/dL Albumin/Globulin Ratio 0.8 (1.0-2.7) L Current Medications Medications (Trade) Dose Ordered Sig/Arti Route PRN Reason Start Time Stop Time Status Last Admin Dose Admin Acetaminophen (Tylenol) 650 mg Q4H PRN RECTAL FEVER 07/29/16 13:45 08/28/16 13:44 Clindamycin HCl/ Dextrose 50 ml @ 100 mls/hr Q8HR@0400,1200,2000 IV 07/29/16 12:00 08/05/16 11:59 07/30/16 11:47 Dextrose (D5W 1000ml) 1,000 ml @ 100 mls/hr Q10H IV 07/29/16 13:00 08/28/16 12:59 07/30/16 08:46 Enoxaparin Sodium (Lovenox) 30 mg DAILY SUBQ 07/30/16 09:00 08/29/16 08:59 07/30/16 09:04 Hydromorphone HCl (Dilaudid) 0.5 mg Q3H PRN IVP Pain Score 1-3 07/29/16 13:45 08/05/16 13:44 07/30/16 13:27 Hydromorphone HCl (Dilaudid) 1 mg Q3H PRN IVP pain score 4-6 07/29/16 13:45 08/05/16 13:44 07/30/16 11:52 Hydromorphone HCl (Dilaudid) 2 mg Q3H PRN IVP pain score 7-10 07/29/16 13:45 08/05/16 13:44 Metoclopramide HCl (Reglan) 10 mg Q6H PRN IVP Nausea & Vomiting 07/29/16 13:00 08/28/16 12:59 Pantoprazole (Protonix) 40 mg Q12HR IVP 07/29/16 21:00 08/28/16 20:59 07/30/16 09:04 Piperacillin Sod/ Tazobactam Sod/ Dextrose (Zosyn/D5W 100ml) 110 ml @ 27.5 mls/hr Q12HR@0600,1800 IVPB 07/30/16 18:00 08/06/16 17:59 Simethicone 80 mg 80 mg QIDPRN PRN NG GAS PAIN 07/30/16 08:00 08/29/16 07:59 07/30/16 11:00 Piyush Harris M.D. Jul 30, 2016 15:43
[2016-07-30 16:00] VITALS: BP 157/95
--- NOTE | 2016-07-30 16:47 | General Surgery Progress Note ---
General Surgery-Progress Note Subjective Procedure Performed Exploratory Laparotomy small bowel resection Symptoms: improved, BM Objective Last 24 Hour Vital Signs Date Time Temp Pulse Resp B/P Pulse Ox O2 Delivery O2 Flow Rate FiO2 07/30/16 16:00 98.0 89 20 157/95 97 Nasal Cannula 2.0 07/30/16 16:00 89 07/30/16 13:57 97.0 07/30/16 12:00 97.9 97 20 178/94 99 Nasal Cannula 2.0 07/30/16 12:00 90 07/30/16 08:00 76 07/30/16 08:00 98.2 84 20 153/89 98 Nasal Cannula 2.0 07/30/16 07:51 Nasal Cannula 3.0 32 07/30/16 07:50 97 Nasal Cannula 3.0 32 07/30/16 04:00 86 07/30/16 04:00 97.6 84 20 166/100 97 Nasal Cannula 3.0 07/30/16 00:00 98.4 89 18 164/104 96 Nasal Cannula 3.0 07/30/16 00:00 85 07/29/16 20:00 86 07/29/16 20:00 97.7 93 20 157/100 97 Nasal Cannula 3.0 07/29/16 19:18 97 Nasal Cannula 3.0 32 07/29/16 19:18 Nasal Cannula 3.0 32 07/29/16 17:31 98.2 91 18 160/90 96 Nasal Cannula 3.0 I&O Intake and Output 07/29/16 07/30/16 18:59 06:59 Intake Total 200 ml 705 ml Output Total 1470 ml 1690 ml Balance -1270 ml -985 ml IV Total 200 ml 705 ml Output Urine Total 1110 ml 1400 ml Gastric Drainage Total 0 ml Drainage Total 360 ml 290 ml # Bowel Movements 3 Dressing: dry Drains: curtis Respiratory: clear Abdomen: soft, flat, tenderness, present bowel sounds Extremities: no tenderness Laboratory Tests Test 07/30/16 04:00 White Blood Count 10.2 K/UL (4.8-10.8) Red Blood Count 3.12 M/UL (4.70-6.10) L Hemoglobin 9.4 G/DL (14.2-18.0) L Hematocrit 28.5 % (42.0-52.0) L Mean Corpuscular Volume 91 FL (80-99) Mean Corpuscular Hemoglobin 30.2 PG (27.0-31.0) Mean Corpuscular Hemoglobin Concent 33.1 G/DL (32.0-36.0) Red Cell Distribution Width 12.2 % (11.6-14.8) Platelet Count 156 K/UL (150-450) Mean Platelet Volume 7.8 FL (6.5-10.1) Neutrophils (%) (Auto) % (45.0-75.0) Lymphocytes (%) (Auto) % (20.0-45.0) Monocytes (%) (Auto) % (1.0-10.0) Eosinophils (%) (Auto) % (0.0-3.0) Basophils (%) (Auto) % (0.0-2.0) Differential Total Cells Counted 100 Neutrophils % (Manual) 82 % (45-75) H Lymphocytes % (Manual) 5 % (20-45) L Monocytes % (Manual) 7 % (1-10) Eosinophils % (Manual) 0 % (0-3) Basophils % (Manual) 0 % (0-2) Band Neutrophils 6 % (0-8) Platelet Estimate Adequate Platelet Morphology Normal Hypochromasia 1+ Sodium Level 143 mEQ/L (135-145) Potassium Level 4.0 mEQ/L (3.4-4.9) Chloride Level 110 mEQ/L (98-107) H Carbon Dioxide Level 22 mEQ/L (20-30) Anion Gap 11 (5-15) Blood Urea Nitrogen 51 mg/dL (7-23) H Creatinine 4.6 mg/dL (0.7-1.2) H Estimat Glomerular Filtration Rate 12.9 mL/min (>60) Glucose Level 165 mg/dL (74-106) H Uric Acid 6.8 mg/dL (3.0-7.5) Calcium Level 7.6 mg/dL (8.6-10.2) L Phosphorus Level 3.5 mg/dL (2.5-4.8) Magnesium Level 2.0 mg/dL (1.7-2.5) Total Bilirubin 0.9 mg/dL (0.0-1.2) Gamma Glutamyl Transpeptidase 173 U/L (8-61) H Aspartate Amino Transf (AST/SGOT) 89 U/L (5-40) H Alanine Aminotransferase (ALT/SGPT) 127 U/L (3-41) H Alkaline Phosphatase 190 U/L (40-129) H C-Reactive Protein, Quantitative 10.0 mg/dL (< 0.5) H Pro-B-Type Natriuretic Peptide 2534 pg/mL (0-125) H Total Protein 4.8 g/dL (6.6-8.7) L Albumin 2.2 g/dL (3.5-5.2) L Globulin 2.6 g/dL Albumin/Globulin Ratio 0.8 (1.0-2.7) L Assessment Post-op Diagnosis Gangrene of small bowel Plan Additional Comments clear liquid diet EDWIN NOGUEIRA Jul 30, 2016 16:47
[2016-07-30] MEDS: Zosyn 3.375gm q12h **Extended infusion IVPB SCH ×2 (17:15)
--- NOTE | 2016-07-30 19:52 | Cardiology Report ---
APPROVED REPORT EKG Measurement Heart [id number] Sinus tachycardia Otherwise normal ECG
[2016-07-30 20:00] VITALS: BP 163/98
[2016-07-31] VITALS (7 sets, daily range): BP systolic 153–179; BP diastolic 84–100
[2016-07-31] MEDS: HYDROmorphone 1mg/ml Carpuject IVP PRN ×4 (02:17→20:00)
[2016-07-31] MEDS: Clindamycin 600mg 50 ML IV SCH ×3 (03:55→21:03)
[2016-07-31] MEDS: Zosyn 3.375gm q12h **Extended infusion IVPB SCH ×4 (05:15→18:06)
[2016-07-31 06:16] LABS: MEAN CORPUSCULAR HEMOGLOBIN 31.4 PG (27.0-31.0); MEAN CORPUSCULAR HGB CONC 33.9 G/DL (32.0-36.0); MEAN CORPUSCULAR VOLUME 93 FL (80-99); MEAN PLATELET VOLUME 6.8 FL (6.5-10.1); PLATELET COUNT 168 K/UL (150-450); RED BLOOD COUNT 2.98 M/UL (4.70-6.10); WHITE BLOOD COUNT 12.3 K/UL (4.8-10.8)
[2016-07-31 06:20] LABS: ALANINE AMINOTRANSFERASE 91 U/L (3-41); ALBUMIN/GLOBULIN RATIO 0.9 (1.0-2.7); ANION GAP 15 (5-15); ASPARTATE AMINO TRANSFERASE 60 U/L (5-40); CALCIUM 7.8 mg/dL (8.6-10.2); CARBON DIOXIDE 22 mEQ/L (20-30); CHLORIDE 104 mEQ/L (98-107); CREATININE 4.1 mg/dL (0.7-1.2); CRP QUANT 10.2 mg/dL (< 0.5); GLOMERULAR FILTRATION RATE 14.7 mL/min (>60); PHOSPHORUS 3.6 mg/dL (2.5-4.8); POTASSIUM 3.5 mEQ/L (3.4-4.9); SODIUM 141 mEQ/L (135-145); TOTAL PROTEIN 5.1 g/dL (6.6-8.7); URIC ACID 6.7 mg/dL (3.0-7.5)
[2016-07-31 07:02] LABS: BILIRUBIN,DIRECT 0.6 mg/dL (0.1-0.3); HEMOLYSIS 3
--- NOTE | 2016-07-31 07:46 | General Progress Note ---
Assessment/Plan Assessment/Plan (1) Small bowel obstruction (2) Intractable abdominal pain (3) Gangrene of the small bowel (4) S/p Exploratory Laparotomy resection of the small bowel with primary anastomosis. Pt will be continued on Dilaudid as needed. Pt was d/w Dr. Aguirre and he concurred. Subjective Date patient seen: Jul 31, 2016 Time patient seen: 07:15 - am Allergies: Coded Allergies: No Known Allergies (Unverified , 07/26/16) Subjective Constitutional: Reports: weakness, Denies: chills, diaphoresis, fever, malaise HEENT: Reports: other, Denies: blurred vision, double vision, ear discharge, ear pain, eye pain, mouth pain, mouth swelling, nose congestion, nose pain, tearing, throat pain, throat swelling Cardiovascular: Denies: chest pain, edema, irregular heart rate, lightheadedness, palpitations, syncope Respiratory: Reports: shortness of breath, Denies: SOB at rest, SOB with excertion, cough, orthopnea, sputum, stridor, wheezing Gastrointestinal/Abdominal: Reports: abdomen distended, abdominal pain, nausea , Denies: black stools, blood in stool, constipated, diarrhea, difficulty swallowing, poor appetite, poor fluid intake, rectal bleeding, tarry stools, vomiting Genitourinary: Denies: burning, discharge, flank pain, frequency, hematuria, incontinence, pain, urgency 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: Reports: weakness, Denies: anxiety, depressed, emotional problems, headache, numbness, paresthesia, pre-existing deficit, seizure, tingling, tremors Endocrine: Denies: excessive sweating, flushing, increased hunger, increased thirst, increased urine, intolerance to cold, intolerance to heat, unexplained weight gain, unexplained weight loss Hematologic/Lymphatic: Denies: anemia, easy bleeding, easy bruising Subjective His pain has been stable and uses the dialudid as needed. He has had a BM and was change to clear liquid diet. Objective Last 24 Hour Vital Signs Date Time Temp Pulse Resp B/P Pulse Ox O2 Delivery O2 Flow Rate FiO2 07/31/16 04:00 98.4 86 20 162/95 95 Nasal Cannula 2.0 07/31/16 04:00 86 07/31/16 00:00 92 07/31/16 00:00 97.7 97 20 165/100 95 Nasal Cannula 2.0 07/30/16 20:00 96.8 91 18 163/98 95 07/30/16 20:00 86 07/30/16 16:00 98.0 89 20 157/95 97 Nasal Cannula 2.0 07/30/16 16:00 89 07/30/16 13:57 97.0 07/30/16 12:00 97.9 97 20 178/94 99 Nasal Cannula 2.0 07/30/16 12:00 90 07/30/16 08:00 76 07/30/16 08:00 98.2 84 20 153/89 98 Nasal Cannula 2.0 07/30/16 07:51 Nasal Cannula 3.0 32 07/30/16 07:50 97 Nasal Cannula 3.0 32 Intake and Output 07/30/16 07/31/16 19:00 07:00 Intake Total 1300 ml 850 ml Output Total 810 ml 1530 ml Balance 490 ml -680 ml IV Total 1200 ml 850 ml Other 100 ml Output Urine Total 600 ml 1450 ml Drainage Total 210 ml 80 ml # Bowel Movements 3 2 Laboratory Tests 07/31/16 04:00: White Blood Count 12.3H, Red Blood Count 2.98L, Hemoglobin 9.3L, Hematocrit 27.6L, Mean Corpuscular Volume 93, Mean Corpuscular Hemoglobin 31.4H, Mean Corpuscular Hemoglobin Concent 33.9, Red Cell Distribution Width 12.0, Platelet Count 168, Mean Platelet Volume 6.8, Neutrophils (%) (Auto) , Lymphocytes (%) ( Auto) , Monocytes (%) (Auto) , Eosinophils (%) (Auto) , Basophils (%) (Auto) , Neutrophils % (Manual) [Pending], Lymphocytes % (Manual) [Pending], Platelet Estimate [Pending], Platelet Morphology [Pending], Sodium Level 141, Potassium Level 3.5, Chloride Level 104, Carbon Dioxide Level 22, Anion Gap 15, Blood Urea Nitrogen 52H, Creatinine 4.1H, Estimat Glomerular Filtration Rate 14.7, Glucose Level 148H, Uric Acid 6.7, Calcium Level 7.8L, Phosphorus Level 3.6, Magnesium Level 2.0, Total Bilirubin 1.3H, Direct Bilirubin 0.6H, Gamma Glutamyl Transpeptidase 280H, Aspartate Amino Transf (AST/SGOT) 60H, Alanine Aminotransferase (ALT/SGPT) 91H, Alkaline Phosphatase 204H, Total Creatine Kinase 137, C-Reactive Protein, Quantitative 10.2H, Pro-B-Type Natriuretic Peptide 2885H, Total Protein 5.1L, Albumin 2.5L, Globulin 2.6, Albumin/Globulin Ratio 0.9L Height (Feet): 5 Height (Inches): 6.00 Weight (Pounds): 162 Objective General Appearance: alert EENT: PERRL/EOMI Neck: non-tender, supple Cardiovascular: normal rate, regular rhythm Respiratory/Chest: lungs clear Abdomen: other - tenderness to palpation bandages applied Extremities: normal inspection Neurologic: alert, responsive Skin: warm/dry SHA BOSE Jul 31, 2016 07:46
--- NOTE | 2016-07-31 08:21 | Cardiology Report ---
APPROVED REPORT EXAM: Two-dimensional and M-mode echocardiogram with Doppler and color Doppler. INDICATION Tachycardia M-Mode DIMENSIONS IVSd.8 (0.7-1.1cm)Left Atrium (MM)2.3 (1.6-4.0cm) LVDd4.4 (3.5-5.6cm)Aortic Root3.3 (2.0-3.7cm) PWd.8 (0.7-1.1cm)Aortic Cusp Exc.2.0 (1.5-2.0cm) LVDs2.0 (2.5-4.0cm) PWs1.6 cm Technically difficult study due to patient position and ventilator. Study quality precludes accurate assessment of regional wall motion. Normal left ventricular chamber size, systolic function and wall motion. Left ventricular ejection fraction estimated to be 60-65%. No evidence of ventricular hypertrophy. Small posterior pericardial effusion. Large posterior plural effusion. All other cardiac chamber sizes are within normal limits. Mild focal aortic valve sclerosis with adequate cusp excursion Mildly thickened mitral valve leaflets with normal excursion. Mild mitral annulus and aortic root calcification. Pulmonic valve not well visualized. Normal tricuspid valve structure. IVC not obtainable. A color flow and spectral Doppler study was performed and revealed: No aortic regurgitation. Trace mitral regurgitation. Mitral diastolic velocities suggest reduced left ventricular relaxation (Grade I). Trace tricuspid regurgitation. Tricuspid systolic velocities suggests peak right ventricular systolic pressure of 17mmHg. Pulmonic regurgitation present.
--- NOTE | 2016-07-31 08:25 | General Progress Note ---
Assessment/Plan Assessment/Plan ASSESSMENT: 1. Leukocytosis. Likely 2/2 underlying infection. Peripheral smear has been within normal limits 2. Anemia 2/2 chronic disease, does not require iron 3. Sepsis, likely contributing to leukocytosis. Now improved 4. Abdominal pain due to small bowel obstruction. Now improved 5. Small bowel obstruction. status post exploratory laparotomy 6. Anemia 2/2 hemodilution RECOMMENDATIONS: 1. Monitor counts 2. Have reviewed anemia workup, does not need iron 3. Follow up on Surgery, Pulm, ID recs 4. Imaging reviewed. 5. Transfuse if hgb <7. 6. DVT ppx lovenox 7. GI ppx ppi 8. DW staff Thank you, Andrew Mendez MD Subjective Constitutional: Reports: no symptoms HEENT: Reports: no symptoms Cardiovascular: Reports: no symptoms Respiratory: Reports: no symptoms Gastrointestinal/Abdominal: Reports: poor appetite Genitourinary: Reports: no symptoms 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: Reports: no symptoms Endocrine: Reports: no symptoms Hematologic/Lymphatic: Reports: anemia Allergies: Coded Allergies: No Known Allergies (Unverified , 07/26/16) Subjective stable, no bleeding reported, having some abd pain Objective Last 24 Hour Vital Signs Date Time Temp Pulse Resp B/P Pulse Ox O2 Delivery O2 Flow Rate FiO2 07/31/16 04:00 98.4 86 20 162/95 95 Nasal Cannula 2.0 07/31/16 04:00 86 07/31/16 00:00 92 07/31/16 00:00 97.7 97 20 165/100 95 Nasal Cannula 2.0 07/30/16 20:00 96.8 91 18 163/98 95 07/30/16 20:00 86 07/30/16 16:00 98.0 89 20 157/95 97 Nasal Cannula 2.0 07/30/16 16:00 89 07/30/16 13:57 97.0 07/30/16 12:00 97.9 97 20 178/94 99 Nasal Cannula 2.0 07/30/16 12:00 90 Intake and Output 07/30/16 07/31/16 18:59 06:59 Intake Total 1355 ml 850 ml Output Total 810 ml 1530 ml Balance 545 ml -680 ml IV Total 1255 ml 850 ml Other 100 ml Output Urine Total 600 ml 1450 ml Drainage Total 210 ml 80 ml # Bowel Movements 3 2 Laboratory Tests 07/31/16 04:00: White Blood Count 12.3H, Red Blood Count 2.98L, Hemoglobin 9.3L, Hematocrit 27.6L, Mean Corpuscular Volume 93, Mean Corpuscular Hemoglobin 31.4H, Mean Corpuscular Hemoglobin Concent 33.9, Red Cell Distribution Width 12.0, Platelet Count 168, Mean Platelet Volume 6.8, Neutrophils (%) (Auto) , Lymphocytes (%) ( Auto) , Monocytes (%) (Auto) , Eosinophils (%) (Auto) , Basophils (%) (Auto) , Neutrophils % (Manual) [Pending], Lymphocytes % (Manual) [Pending], Platelet Estimate [Pending], Platelet Morphology [Pending], Sodium Level 141, Potassium Level 3.5, Chloride Level 104, Carbon Dioxide Level 22, Anion Gap 15, Blood Urea Nitrogen 52H, Creatinine 4.1H, Estimat Glomerular Filtration Rate 14.7, Glucose Level 148H, Uric Acid 6.7, Calcium Level 7.8L, Phosphorus Level 3.6, Magnesium Level 2.0, Total Bilirubin 1.3H, Direct Bilirubin 0.6H, Gamma Glutamyl Transpeptidase 280H, Aspartate Amino Transf (AST/SGOT) 60H, Alanine Aminotransferase (ALT/SGPT) 91H, Alkaline Phosphatase 204H, Total Creatine Kinase 137, C-Reactive Protein, Quantitative 10.2H, Pro-B-Type Natriuretic Peptide 2885H, Total Protein 5.1L, Albumin 2.5L, Globulin 2.6, Albumin/Globulin Ratio 0.9L Height (Feet): 5 Height (Inches): 6.00 Weight (Pounds): 162 General Appearance: no apparent distress EENT: TMs normal Neck: supple Cardiovascular: regular rhythm Respiratory/Chest: normal breath sounds Abdomen: non tender Genitourinary/Rectal: normal rectal exam Edema: 1+ Leg (L), 1+ Leg (R) Edema: mild edema Neurologic: no motor/sensory deficits Skin: warm/dry Andrew Mendez Jul 31, 2016 08:25
[2016-07-31] MEDS: Pantoprazole Inj IVP SCH ×2 (08:48→21:01)
[2016-07-31] MEDS: Enoxaparin 30mg Inj SUBQ SCH (08:50)
--- NOTE | 2016-07-31 09:52 | General Progress Note ---
Assessment/Plan Status: stable Assessment/Plan status: Septic Shock leading to acute renal failure- Cr leveling and lowering Abdominal Surgery 07/26/16 then again 05/27 Plan; post op care- Fluids Antibiotics- Protonix IV monitor renal parameters- Subjective ROS Limited/Unobtainable: Yes Allergies: Coded Allergies: No Known Allergies (Unverified , 07/26/16) Objective Last 24 Hour Vital Signs Date Time Temp Pulse Resp B/P Pulse Ox O2 Delivery O2 Flow Rate FiO2 07/31/16 08:00 98.2 85 24 179/98 95 Room Air 07/31/16 04:00 98.4 86 20 162/95 95 Nasal Cannula 2.0 07/31/16 04:00 86 07/31/16 00:00 92 07/31/16 00:00 97.7 97 20 165/100 95 Nasal Cannula 2.0 07/30/16 20:00 96.8 91 18 163/98 95 07/30/16 20:00 86 07/30/16 16:00 98.0 89 20 157/95 97 Nasal Cannula 2.0 07/30/16 16:00 89 07/30/16 13:57 97.0 07/30/16 12:00 97.9 97 20 178/94 99 Nasal Cannula 2.0 07/30/16 12:00 90 Intake and Output 07/30/16 07/31/16 19:00 07:00 Intake Total 1300 ml 850 ml Output Total 810 ml 1530 ml Balance 490 ml -680 ml IV Total 1200 ml 850 ml Other 100 ml Output Urine Total 600 ml 1450 ml Drainage Total 210 ml 80 ml # Bowel Movements 3 2 Laboratory Tests 07/31/16 04:00: White Blood Count 12.3H, Red Blood Count 2.98L, Hemoglobin 9.3L, Hematocrit 27.6L, Mean Corpuscular Volume 93, Mean Corpuscular Hemoglobin 31.4H, Mean Corpuscular Hemoglobin Concent 33.9, Red Cell Distribution Width 12.0, Platelet Count 168, Mean Platelet Volume 6.8, Neutrophils (%) (Auto) , Lymphocytes (%) ( Auto) , Monocytes (%) (Auto) , Eosinophils (%) (Auto) , Basophils (%) (Auto) , Neutrophils % (Manual) [Pending], Lymphocytes % (Manual) [Pending], Platelet Estimate [Pending], Platelet Morphology [Pending], Sodium Level 141, Potassium Level 3.5, Chloride Level 104, Carbon Dioxide Level 22, Anion Gap 15, Blood Urea Nitrogen 52H, Creatinine 4.1H, Estimat Glomerular Filtration Rate 14.7, Glucose Level 148H, Uric Acid 6.7, Calcium Level 7.8L, Phosphorus Level 3.6, Magnesium Level 2.0, Total Bilirubin 1.3H, Direct Bilirubin 0.6H, Gamma Glutamyl Transpeptidase 280H, Aspartate Amino Transf (AST/SGOT) 60H, Alanine Aminotransferase (ALT/SGPT) 91H, Alkaline Phosphatase 204H, Total Creatine Kinase 137, C-Reactive Protein, Quantitative 10.2H, Pro-B-Type Natriuretic Peptide 2885H, Total Protein 5.1L, Albumin 2.5L, Globulin 2.6, Albumin/Globulin Ratio 0.9L Height (Feet): 5 Height (Inches): 6.00 Weight (Pounds): 162 General Appearance: no apparent distress Cardiovascular: tachycardia - slightly Respiratory/Chest: decreased breath sounds Abdomen: distended Objective no other changes in PE REBECCA SCHULTE Jul 31, 2016 09:52
--- NOTE | 2016-07-31 11:21 | Pulmonology Progress Note ---
Assessment/Plan Problems: (1) SBO (small bowel obstruction) (2) MIGNON (acute kidney injury) (3) Ileus (4) Enteritis (5) Non-ST elevation (NSTEMI) myocardial infarction Assessment/Plan improving continue antibiotics check electrolytes Jtube still draining advance diet keep same IV fluids check electrolytes daily med/surg d/w dr luna Subjective ROS Limited/Unobtainable: No Interval Events: improving, started diet Allergies: Coded Allergies: No Known Allergies (Unverified , 07/26/16) Objective Last 24 Hour Vital Signs Date Time Temp Pulse Resp B/P Pulse Ox O2 Delivery O2 Flow Rate FiO2 07/31/16 10:22 84 162/100 07/31/16 08:00 98.2 85 24 179/98 95 Room Air 07/31/16 08:00 85 07/31/16 04:00 98.4 86 20 162/95 95 Nasal Cannula 2.0 07/31/16 04:00 86 07/31/16 00:00 92 07/31/16 00:00 97.7 97 20 165/100 95 Nasal Cannula 2.0 07/30/16 20:00 96.8 91 18 163/98 95 07/30/16 20:00 86 07/30/16 16:00 98.0 89 20 157/95 97 Nasal Cannula 2.0 07/30/16 16:00 89 07/30/16 13:57 97.0 07/30/16 12:00 97.9 97 20 178/94 99 Nasal Cannula 2.0 07/30/16 12:00 90 Intake and Output 07/30/16 07/31/16 19:00 07:00 Intake Total 1300 ml 850 ml Output Total 810 ml 1530 ml Balance 490 ml -680 ml IV Total 1200 ml 850 ml Other 100 ml Output Urine Total 600 ml 1450 ml Drainage Total 210 ml 80 ml # Bowel Movements 3 2 General Appearance: WD/WN HEENT: normocephalic, atraumatic Respiratory/Chest: lungs clear Cardiovascular: normal peripheral pulses, normal rate Abdomen: normal bowel sounds, soft, non tender Genitourinary: normal external genitalia Extremities: no cyanosis 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: 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 cresylate II-XII grossly normal Laboratory Tests 07/31/16 04:00: White Blood Count 12.3H, Red Blood Count 2.98L, Hemoglobin 9.3L, Hematocrit 27.6L, Mean Corpuscular Volume 93, Mean Corpuscular Hemoglobin 31.4H, Mean Corpuscular Hemoglobin Concent 33.9, Red Cell Distribution Width 12.0, Platelet Count 168, Mean Platelet Volume 6.8, Neutrophils (%) (Auto) , Lymphocytes (%) ( Auto) , Monocytes (%) (Auto) , Eosinophils (%) (Auto) , Basophils (%) (Auto) , Neutrophils % (Manual) [Pending], Lymphocytes % (Manual) [Pending], Platelet Estimate [Pending], Platelet Morphology [Pending], Sodium Level 141, Potassium Level 3.5, Chloride Level 104, Carbon Dioxide Level 22, Anion Gap 15, Blood Urea Nitrogen 52H, Creatinine 4.1H, Estimat Glomerular Filtration Rate 14.7, Glucose Level 148H, Uric Acid 6.7, Calcium Level 7.8L, Phosphorus Level 3.6, Magnesium Level 2.0, Total Bilirubin 1.3H, Direct Bilirubin 0.6H, Gamma Glutamyl Transpeptidase 280H, Aspartate Amino Transf (AST/SGOT) 60H, Alanine Aminotransferase (ALT/SGPT) 91H, Alkaline Phosphatase 204H, Total Creatine Kinase 137, C-Reactive Protein, Quantitative 10.2H, Pro-B-Type Natriuretic Peptide 2885H, Total Protein 5.1L, Albumin 2.5L, Globulin 2.6, Albumin/Globulin Ratio 0.9L Current Medications Medications (Trade) Dose Ordered Sig/Arti Route PRN Reason Start Time Stop Time Status Last Admin Dose Admin Acetaminophen (Tylenol) 650 mg Q4H PRN RECTAL FEVER 07/29/16 13:45 08/28/16 13:44 Clindamycin HCl/ Dextrose 50 ml @ 100 mls/hr Q8HR@0400,1200,2000 IV 07/29/16 12:00 08/05/16 11:59 07/31/16 03:55 Dextrose (D5W 1000ml) 1,000 ml @ 100 mls/hr Q10H IV 07/29/16 13:00 08/28/16 12:59 07/30/16 20:35 Enoxaparin Sodium (Lovenox) 30 mg DAILY SUBQ 07/30/16 09:00 08/29/16 08:59 07/31/16 08:50 Hydromorphone HCl (Dilaudid) 0.5 mg Q3H PRN IVP Pain Score 1-3 07/29/16 13:45 08/05/16 13:44 07/30/16 13:27 Hydromorphone HCl (Dilaudid) 1 mg Q3H PRN IVP pain score 4-6 07/29/16 13:45 08/05/16 13:44 07/31/16 06:41 Hydromorphone HCl (Dilaudid) 2 mg Q3H PRN IVP pain score 7-10 07/29/16 13:45 08/05/16 13:44 Metoclopramide HCl (Reglan) 10 mg Q6H PRN IVP Nausea & Vomiting 07/29/16 13:00 08/28/16 12:59 Pantoprazole (Protonix) 40 mg Q12HR IVP 07/29/16 21:00 08/28/16 20:59 07/31/16 08:48 Piperacillin Sod/ Tazobactam Sod/ Dextrose (Zosyn/D5W 100ml) 110 ml @ 27.5 mls/hr Q12HR@0600,1800 IVPB 07/30/16 18:00 08/06/16 17:59 07/31/16 05:15 Simethicone 80 mg 80 mg QIDPRN PRN NG GAS PAIN 07/30/16 08:00 08/29/16 07:59 07/30/16 11:00 MAIKEL ESPINOSA Jul 31, 2016 11:21
--- NOTE | 2016-07-31 11:24 | Cardiac Electrophysiology PN ---
Assessment/Plan Assessment/Plan 1. NSTEMI with elevated troponin due to demand ischemia vs renal failure. ECG non ischemic. Troponin down to 0.33. Echo NL EF. Start Lopressor 25 bid. 2. S/P Septic shock due to small bowel obstruction and gangrene. Off pressors.On iv fluid and antibiotics. 3. HTN. Start Lopressor 25 bid.Avoid ACEI or ARB for renal failure 4. Small bowel obstruction status post laparotomy and small bowel resection. Follow up Dr Murrieta. 5. Respiratory failure . Extubated 6. Renal failure, creatinine 4.4. Further evaluation by Dr. Rai. DW Dr Carpio and RN Subjective Subjective On GARCIA. No arrhythmias. RN and family at bedside. Still has the abdominal drain. Objective Last 24 Hour Vital Signs Date Time Temp Pulse Resp B/P Pulse Ox O2 Delivery O2 Flow Rate FiO2 07/31/16 10:22 84 162/100 07/31/16 08:00 98.2 85 24 179/98 95 Room Air 07/31/16 08:00 85 07/31/16 04:00 98.4 86 20 162/95 95 Nasal Cannula 2.0 07/31/16 04:00 86 07/31/16 00:00 92 07/31/16 00:00 97.7 97 20 165/100 95 Nasal Cannula 2.0 07/30/16 20:00 96.8 91 18 163/98 95 07/30/16 20:00 86 07/30/16 16:00 98.0 89 20 157/95 97 Nasal Cannula 2.0 07/30/16 16:00 89 07/30/16 13:57 97.0 07/30/16 12:00 97.9 97 20 178/94 99 Nasal Cannula 2.0 07/30/16 12:00 90 Intake and Output 07/30/16 07/31/16 19:00 07:00 Intake Total 1300 ml 850 ml Output Total 810 ml 1530 ml Balance 490 ml -680 ml IV Total 1200 ml 850 ml Other 100 ml Output Urine Total 600 ml 1450 ml Drainage Total 210 ml 80 ml # Bowel Movements 3 2 Laboratory Tests Test 07/31/16 04:00 White Blood Count 12.3 K/UL (4.8-10.8) H Red Blood Count 2.98 M/UL (4.70-6.10) L Hemoglobin 9.3 G/DL (14.2-18.0) L Hematocrit 27.6 % (42.0-52.0) L Mean Corpuscular Volume 93 FL (80-99) Mean Corpuscular Hemoglobin 31.4 PG (27.0-31.0) H Mean Corpuscular Hemoglobin Concent 33.9 G/DL (32.0-36.0) Red Cell Distribution Width 12.0 % (11.6-14.8) Platelet Count 168 K/UL (150-450) Mean Platelet Volume 6.8 FL (6.5-10.1) Neutrophils (%) (Auto) % (45.0-75.0) Lymphocytes (%) (Auto) % (20.0-45.0) Monocytes (%) (Auto) % (1.0-10.0) Eosinophils (%) (Auto) % (0.0-3.0) Basophils (%) (Auto) % (0.0-2.0) Neutrophils % (Manual) Pending Lymphocytes % (Manual) Pending Platelet Estimate Pending Platelet Morphology Pending Sodium Level 141 mEQ/L (135-145) Potassium Level 3.5 mEQ/L (3.4-4.9) Chloride Level 104 mEQ/L (98-107) Carbon Dioxide Level 22 mEQ/L (20-30) Anion Gap 15 (5-15) Blood Urea Nitrogen 52 mg/dL (7-23) H Creatinine 4.1 mg/dL (0.7-1.2) H Estimat Glomerular Filtration Rate 14.7 mL/min (>60) Glucose Level 148 mg/dL (74-106) H Uric Acid 6.7 mg/dL (3.0-7.5) Calcium Level 7.8 mg/dL (8.6-10.2) L Phosphorus Level 3.6 mg/dL (2.5-4.8) Magnesium Level 2.0 mg/dL (1.7-2.5) Total Bilirubin 1.3 mg/dL (0.0-1.2) H Direct Bilirubin 0.6 mg/dL (0.1-0.3) H Gamma Glutamyl Transpeptidase 280 U/L (8-61) H Aspartate Amino Transf (AST/SGOT) 60 U/L (5-40) H Alanine Aminotransferase (ALT/SGPT) 91 U/L (3-41) H Alkaline Phosphatase 204 U/L (40-129) H Total Creatine Kinase 137 U/L (38-174) C-Reactive Protein, Quantitative 10.2 mg/dL (< 0.5) H Pro-B-Type Natriuretic Peptide 2885 pg/mL (0-125) H Total Protein 5.1 g/dL (6.6-8.7) L Albumin 2.5 g/dL (3.5-5.2) L Globulin 2.6 g/dL Albumin/Globulin Ratio 0.9 (1.0-2.7) L Objective HEAD AND NECK: No JVD. LUNGS: Clear CARDIOVASCULAR: Nl S1 and S2 with no gallop or murmur. ABDOMEN: Post median laparotomy.DAKOTA drain still draining. EXTREMITIES: No pitting edema. HONEY DUKE Jul 31, 2016 11:24
--- NOTE | 2016-07-31 11:24 | General Progress Note ---
Assessment/Plan Problem List: (1) Ileus ICD Codes: K56.7 - Ileus, unspecified SNOMED: 302487868 (2) Sepsis ICD Codes: A41.9 - Sepsis, unspecified organism SNOMED: 75048723 (3) Abdominal pain ICD Codes: R10.9 - Unspecified abdominal pain SNOMED: 46407370 (4) SBO (small bowel obstruction) ICD Codes: K56.69 - Other intestinal obstruction SNOMED: 988015575 (5) Abdominal gas pain ICD Codes: R14.1 - Gas pain SNOMED: 76362830 (6) Enteritis ICD Codes: K52.9 - Noninfective gastroenteritis and colitis, unspecified SNOMED: 17508214 Status: progressing Assessment/Plan sbo s/p exploratory lap by dr zee moniter closely r/o septic shock lactic acidosis decreased urine out moniter closely abx per id no fever Subjective ROS Limited/Unobtainable: Yes Constitutional: Reports: no symptoms Allergies: Coded Allergies: No Known Allergies (Unverified , 07/26/16) Objective Last 24 Hour Vital Signs Date Time Temp Pulse Resp B/P Pulse Ox O2 Delivery O2 Flow Rate FiO2 07/31/16 10:22 84 162/100 07/31/16 08:00 98.2 85 24 179/98 95 Room Air 07/31/16 08:00 85 07/31/16 04:00 98.4 86 20 162/95 95 Nasal Cannula 2.0 07/31/16 04:00 86 07/31/16 00:00 92 07/31/16 00:00 97.7 97 20 165/100 95 Nasal Cannula 2.0 07/30/16 20:00 96.8 91 18 163/98 95 07/30/16 20:00 86 07/30/16 16:00 98.0 89 20 157/95 97 Nasal Cannula 2.0 07/30/16 16:00 89 07/30/16 13:57 97.0 07/30/16 12:00 97.9 97 20 178/94 99 Nasal Cannula 2.0 07/30/16 12:00 90 Intake and Output 07/30/16 07/31/16 19:00 07:00 Intake Total 1300 ml 850 ml Output Total 810 ml 1530 ml Balance 490 ml -680 ml IV Total 1200 ml 850 ml Other 100 ml Output Urine Total 600 ml 1450 ml Drainage Total 210 ml 80 ml # Bowel Movements 3 2 Laboratory Tests 07/31/16 04:00: White Blood Count 12.3H, Red Blood Count 2.98L, Hemoglobin 9.3L, Hematocrit 27.6L, Mean Corpuscular Volume 93, Mean Corpuscular Hemoglobin 31.4H, Mean Corpuscular Hemoglobin Concent 33.9, Red Cell Distribution Width 12.0, Platelet Count 168, Mean Platelet Volume 6.8, Neutrophils (%) (Auto) , Lymphocytes (%) ( Auto) , Monocytes (%) (Auto) , Eosinophils (%) (Auto) , Basophils (%) (Auto) , Neutrophils % (Manual) [Pending], Lymphocytes % (Manual) [Pending], Platelet Estimate [Pending], Platelet Morphology [Pending], Sodium Level 141, Potassium Level 3.5, Chloride Level 104, Carbon Dioxide Level 22, Anion Gap 15, Blood Urea Nitrogen 52H, Creatinine 4.1H, Estimat Glomerular Filtration Rate 14.7, Glucose Level 148H, Uric Acid 6.7, Calcium Level 7.8L, Phosphorus Level 3.6, Magnesium Level 2.0, Total Bilirubin 1.3H, Direct Bilirubin 0.6H, Gamma Glutamyl Transpeptidase 280H, Aspartate Amino Transf (AST/SGOT) 60H, Alanine Aminotransferase (ALT/SGPT) 91H, Alkaline Phosphatase 204H, Total Creatine Kinase 137, C-Reactive Protein, Quantitative 10.2H, Pro-B-Type Natriuretic Peptide 2885H, Total Protein 5.1L, Albumin 2.5L, Globulin 2.6, Albumin/Globulin Ratio 0.9L Height (Feet): 5 Height (Inches): 6.00 Weight (Pounds): 162 EENT: PERRL/EOMI Neck: supple Cardiovascular: normal rate Respiratory/Chest: lungs clear Abdomen: soft Teo Love MD Jul 31, 2016 11:24
[2016-07-31 11:39] LABS: ANISOCYTOSIS 1+; BAND NEUTROPHILS % (MANUAL) 0 % (0-8); BASOPHILS % (MANUAL) 0 % (0-2); EOSINOPHILS % (MANUAL) 0 % (0-3); HYPOCHROMASIA 2+; LYMPHOCYTES % (MANUAL) 3 % (20-45); NEUTROPHILS % (MANUAL) 92 % (45-75); PLATELET ESTIMATE DECREASED; PLATELET MORPHOLOGY NORMAL; TOTAL CELLS COUNTED 100
[2016-07-31 14:36] LABS: CORTISOL 45.3 ug/dL; OSMOLALITY SERUM 305 mOsm/kg (278-305)
--- NOTE | 2016-07-31 15:27 | Infectious Diseases Prog Note ---
Assessment/Plan Problems: (1) Septic shock Assessment & Plan: improving, with IVF , will continue clindamycin and zosyn for now, blood culture is negative so far , and abdominal fluids culture showed no growth (2) SBO (small bowel obstruction) Assessment & Plan: S/P EX LAP , has ileus post OP, now improving, continue IVF , and pain management , general surgery is following (3) Abdominal pain Assessment & Plan: continue pain management, surgery is following (4) MIGNON (acute kidney injury) Assessment & Plan: due to sepsis and hypotension, continue IVF, titrate to keep SBP >100, renal is following (5) Ileus Assessment & Plan: due to EX LAP, improved, had large bowel movement with dark stool. Subjective Gastrointestinal/Abdominal: Reports: bloating, other - pain Allergies: Coded Allergies: No Known Allergies (Unverified , 07/26/16) All Systems: reviewed and negative except above Subjective he had large bowel movement yesterday , no fever or chills, no cough or SOB, has mild abdominal pain, tolerated liquid diet today. Objective Vital Signs Last 24 Hour Vital Signs Date Time Temp Pulse Resp B/P Pulse Ox O2 Delivery O2 Flow Rate FiO2 07/31/16 14:22 97.0 07/31/16 12:00 97.3 95 22 160/99 91 Room Air 07/31/16 12:00 89 07/31/16 10:22 84 162/100 07/31/16 08:00 98.2 85 24 179/98 95 Room Air 07/31/16 08:00 85 07/31/16 04:00 98.4 86 20 162/95 95 Nasal Cannula 2.0 07/31/16 04:00 86 07/31/16 00:00 92 07/31/16 00:00 97.7 97 20 165/100 95 Nasal Cannula 2.0 07/30/16 20:00 96.8 91 18 163/98 95 07/30/16 20:00 86 07/30/16 16:00 98.0 89 20 157/95 97 Nasal Cannula 2.0 07/30/16 16:00 89 Height (Feet): 5 Height (Inches): 6.00 Weight (Pounds): 162 General Appearance: WD/WN HEENT: normocephalic, atraumatic, anicteric, mucous membranes moist, PERRL Respiratory/Chest: chest wall non-tender, lungs clear, normal breath sounds, no respiratory distress, no accessory muscle use Cardiovascular: normal peripheral pulses, normal rate, regular rhythm, no gallop/murmur Abdomen: soft, non tender, no organomegaly, non distended, no mass, no scars, hypoactive bowel sounds, other - surgical abdominal wound with DAKOTA drainage in place Extremities: no cyanosis, no clubbing Skin: no rash, no lesions, no ulcers Laboratory Tests Test 07/31/16 04:00 White Blood Count 12.3 K/UL (4.8-10.8) H Red Blood Count 2.98 M/UL (4.70-6.10) L Hemoglobin 9.3 G/DL (14.2-18.0) L Hematocrit 27.6 % (42.0-52.0) L Mean Corpuscular Volume 93 FL (80-99) Mean Corpuscular Hemoglobin 31.4 PG (27.0-31.0) H Mean Corpuscular Hemoglobin Concent 33.9 G/DL (32.0-36.0) Red Cell Distribution Width 12.0 % (11.6-14.8) Platelet Count 168 K/UL (150-450) Mean Platelet Volume 6.8 FL (6.5-10.1) Neutrophils (%) (Auto) % (45.0-75.0) Lymphocytes (%) (Auto) % (20.0-45.0) Monocytes (%) (Auto) % (1.0-10.0) Eosinophils (%) (Auto) % (0.0-3.0) Basophils (%) (Auto) % (0.0-2.0) Differential Total Cells Counted 100 Neutrophils % (Manual) 92 % (45-75) H Lymphocytes % (Manual) 3 % (20-45) L Monocytes % (Manual) 5 % (1-10) Eosinophils % (Manual) 0 % (0-3) Basophils % (Manual) 0 % (0-2) Band Neutrophils 0 % (0-8) Platelet Estimate Decreased L Platelet Morphology Normal Hypochromasia 2+ Anisocytosis 1+ Sodium Level 141 mEQ/L (135-145) Potassium Level 3.5 mEQ/L (3.4-4.9) Chloride Level 104 mEQ/L (98-107) Carbon Dioxide Level 22 mEQ/L (20-30) Anion Gap 15 (5-15) Blood Urea Nitrogen 52 mg/dL (7-23) H Creatinine 4.1 mg/dL (0.7-1.2) H Estimat Glomerular Filtration Rate 14.7 mL/min (>60) Glucose Level 148 mg/dL (74-106) H Uric Acid 6.7 mg/dL (3.0-7.5) Calcium Level 7.8 mg/dL (8.6-10.2) L Phosphorus Level 3.6 mg/dL (2.5-4.8) Magnesium Level 2.0 mg/dL (1.7-2.5) Total Bilirubin 1.3 mg/dL (0.0-1.2) H Direct Bilirubin 0.6 mg/dL (0.1-0.3) H Gamma Glutamyl Transpeptidase 280 U/L (8-61) H Aspartate Amino Transf (AST/SGOT) 60 U/L (5-40) H Alanine Aminotransferase (ALT/SGPT) 91 U/L (3-41) H Alkaline Phosphatase 204 U/L (40-129) H Total Creatine Kinase 137 U/L (38-174) C-Reactive Protein, Quantitative 10.2 mg/dL (< 0.5) H Pro-B-Type Natriuretic Peptide 2885 pg/mL (0-125) H Total Protein 5.1 g/dL (6.6-8.7) L Albumin 2.5 g/dL (3.5-5.2) L Globulin 2.6 g/dL Albumin/Globulin Ratio 0.9 (1.0-2.7) L Current Medications Medications (Trade) Dose Ordered Sig/Arti Route PRN Reason Start Time Stop Time Status Last Admin Dose Admin Acetaminophen (Tylenol) 650 mg Q4H PRN RECTAL FEVER 07/29/16 13:45 08/28/16 13:44 Clindamycin HCl/ Dextrose 50 ml @ 100 mls/hr Q8HR@0400,1200,2000 IV 07/29/16 12:00 08/05/16 11:59 07/31/16 11:43 Dextrose (D5W 1000ml) 1,000 ml @ 100 mls/hr Q10H IV 07/29/16 13:00 08/28/16 12:59 07/31/16 14:23 Enoxaparin Sodium (Lovenox) 30 mg DAILY SUBQ 07/30/16 09:00 08/29/16 08:59 07/31/16 08:50 Hydromorphone HCl (Dilaudid) 0.5 mg Q3H PRN IVP Pain Score 1-3 07/29/16 13:45 08/05/16 13:44 07/30/16 13:27 Hydromorphone HCl (Dilaudid) 1 mg Q3H PRN IVP pain score 4-6 07/29/16 13:45 08/05/16 13:44 07/31/16 13:36 Hydromorphone HCl (Dilaudid) 2 mg Q3H PRN IVP pain score 7-10 07/29/16 13:45 08/05/16 13:44 Metoclopramide HCl (Reglan) 10 mg Q6H PRN IVP Nausea & Vomiting 07/29/16 13:00 08/28/16 12:59 Pantoprazole (Protonix) 40 mg Q12HR IVP 07/29/16 21:00 08/28/16 20:59 07/31/16 08:48 Piperacillin Sod/ Tazobactam Sod/ Dextrose (Zosyn/D5W 100ml) 110 ml @ 27.5 mls/hr Q12HR@0600,1800 IVPB 07/30/16 18:00 08/06/16 17:59 07/31/16 05:15 Simethicone 80 mg 80 mg QIDPRN PRN NG GAS PAIN 07/30/16 08:00 08/29/16 07:59 07/30/16 11:00 Piyush Harris M.D. Jul 31, 2016 15:27
--- NOTE | 2016-07-31 16:16 | General Surgery Progress Note ---
General Surgery-Progress Note Subjective Procedure Performed Exploratory Laparotomy small bowel resection Symptoms: improved, BM Objective Last 24 Hour Vital Signs Date Time Temp Pulse Resp B/P Pulse Ox O2 Delivery O2 Flow Rate FiO2 07/31/16 14:22 97.0 07/31/16 12:00 97.3 95 22 160/99 91 Room Air 07/31/16 12:00 89 07/31/16 10:22 84 162/100 07/31/16 08:00 98.2 85 24 179/98 95 Room Air 07/31/16 08:00 85 07/31/16 04:00 98.4 86 20 162/95 95 Nasal Cannula 2.0 07/31/16 04:00 86 07/31/16 00:00 92 07/31/16 00:00 97.7 97 20 165/100 95 Nasal Cannula 2.0 07/30/16 20:00 96.8 91 18 163/98 95 07/30/16 20:00 86 I&O Intake and Output 07/30/16 07/31/16 19:00 07:00 Intake Total 1300 ml 850 ml Output Total 810 ml 1530 ml Balance 490 ml -680 ml IV Total 1200 ml 850 ml Other 100 ml Output Urine Total 600 ml 1450 ml Drainage Total 210 ml 80 ml # Bowel Movements 3 2 Dressing: dry Drains: curtis Respiratory: clear Abdomen: soft, flat, tenderness, present bowel sounds Extremities: no tenderness Laboratory Tests Test 07/31/16 04:00 White Blood Count 12.3 K/UL (4.8-10.8) H Red Blood Count 2.98 M/UL (4.70-6.10) L Hemoglobin 9.3 G/DL (14.2-18.0) L Hematocrit 27.6 % (42.0-52.0) L Mean Corpuscular Volume 93 FL (80-99) Mean Corpuscular Hemoglobin 31.4 PG (27.0-31.0) H Mean Corpuscular Hemoglobin Concent 33.9 G/DL (32.0-36.0) Red Cell Distribution Width 12.0 % (11.6-14.8) Platelet Count 168 K/UL (150-450) Mean Platelet Volume 6.8 FL (6.5-10.1) Neutrophils (%) (Auto) % (45.0-75.0) Lymphocytes (%) (Auto) % (20.0-45.0) Monocytes (%) (Auto) % (1.0-10.0) Eosinophils (%) (Auto) % (0.0-3.0) Basophils (%) (Auto) % (0.0-2.0) Differential Total Cells Counted 100 Neutrophils % (Manual) 92 % (45-75) H Lymphocytes % (Manual) 3 % (20-45) L Monocytes % (Manual) 5 % (1-10) Eosinophils % (Manual) 0 % (0-3) Basophils % (Manual) 0 % (0-2) Band Neutrophils 0 % (0-8) Platelet Estimate Decreased L Platelet Morphology Normal Hypochromasia 2+ Anisocytosis 1+ Sodium Level 141 mEQ/L (135-145) Potassium Level 3.5 mEQ/L (3.4-4.9) Chloride Level 104 mEQ/L (98-107) Carbon Dioxide Level 22 mEQ/L (20-30) Anion Gap 15 (5-15) Blood Urea Nitrogen 52 mg/dL (7-23) H Creatinine 4.1 mg/dL (0.7-1.2) H Estimat Glomerular Filtration Rate 14.7 mL/min (>60) Glucose Level 148 mg/dL (74-106) H Uric Acid 6.7 mg/dL (3.0-7.5) Calcium Level 7.8 mg/dL (8.6-10.2) L Phosphorus Level 3.6 mg/dL (2.5-4.8) Magnesium Level 2.0 mg/dL (1.7-2.5) Total Bilirubin 1.3 mg/dL (0.0-1.2) H Direct Bilirubin 0.6 mg/dL (0.1-0.3) H Gamma Glutamyl Transpeptidase 280 U/L (8-61) H Aspartate Amino Transf (AST/SGOT) 60 U/L (5-40) H Alanine Aminotransferase (ALT/SGPT) 91 U/L (3-41) H Alkaline Phosphatase 204 U/L (40-129) H Total Creatine Kinase 137 U/L (38-174) C-Reactive Protein, Quantitative 10.2 mg/dL (< 0.5) H Pro-B-Type Natriuretic Peptide 2885 pg/mL (0-125) H Total Protein 5.1 g/dL (6.6-8.7) L Albumin 2.5 g/dL (3.5-5.2) L Globulin 2.6 g/dL Albumin/Globulin Ratio 0.9 (1.0-2.7) L Assessment Post-op Diagnosis Gangrene of small bowel Plan Additional Comments advance diet, pulmonary toilet EDWIN NOGUEIRA Jul 31, 2016 16:16
--- NOTE | 2016-07-31 20:49 | General Progress Note ---
Assessment/Plan Assessment/Plan Assessment - SBO / gangrene - resected - septic shock - recovered - ATN - improved - abnormal LFT - ? shocked liver - resolving - lactic acidosis - improved - s/p ex lap Recommendations IVF abx PPI follow labs supportive care surgical f/u Subjective Allergies: Coded Allergies: No Known Allergies (Unverified , 07/26/16) Subjective above all noted c/o wound pain seen in [facility] (+) flatus and BM (+) tolerating clears Objective Last 24 Hour Vital Signs Date Time Temp Pulse Resp B/P Pulse Ox O2 Delivery O2 Flow Rate FiO2 07/31/16 16:00 98.2 83 20 153/84 07/31/16 16:00 83 07/31/16 14:22 97.0 07/31/16 12:00 97.3 95 22 160/99 91 Room Air 07/31/16 12:00 89 07/31/16 10:22 84 162/100 07/31/16 08:00 98.2 85 24 179/98 95 Room Air 07/31/16 08:00 85 07/31/16 04:00 98.4 86 20 162/95 95 Nasal Cannula 2.0 07/31/16 04:00 86 07/31/16 00:00 92 07/31/16 00:00 97.7 97 20 165/100 95 Nasal Cannula 2.0 Intake and Output 07/30/16 07/31/16 19:00 07:00 Intake Total 1300 ml 850 ml Output Total 810 ml 1530 ml Balance 490 ml -680 ml IV Total 1200 ml 850 ml Other 100 ml Output Urine Total 600 ml 1450 ml Drainage Total 210 ml 80 ml # Bowel Movements 3 2 Laboratory Tests 07/31/16 04:00: White Blood Count 12.3H, Red Blood Count 2.98L, Hemoglobin 9.3L, Hematocrit 27.6L, Mean Corpuscular Volume 93, Mean Corpuscular Hemoglobin 31.4H, Mean Corpuscular Hemoglobin Concent 33.9, Red Cell Distribution Width 12.0, Platelet Count 168, Mean Platelet Volume 6.8, Neutrophils (%) (Auto) , Lymphocytes (%) ( Auto) , Monocytes (%) (Auto) , Eosinophils (%) (Auto) , Basophils (%) (Auto) , Differential Total Cells Counted 100, Neutrophils % (Manual) 92H, Lymphocytes % (Manual) 3L, Monocytes % (Manual) 5, Eosinophils % (Manual) 0, Basophils % ( Manual) 0, Band Neutrophils 0, Platelet Estimate DecreasedL, Platelet Morphology Normal, Hypochromasia 2+, Anisocytosis 1+, Sodium Level 141, Potassium Level 3.5, Chloride Level 104, Carbon Dioxide Level 22, Anion Gap 15, Blood Urea Nitrogen 52H, Creatinine 4.1H, Estimat Glomerular Filtration Rate 14.7, Glucose Level 148H, Uric Acid 6.7, Calcium Level 7.8L, Phosphorus Level 3.6, Magnesium Level 2.0, Total Bilirubin 1.3H, Direct Bilirubin 0.6H, Gamma Glutamyl Transpeptidase 280H, Aspartate Amino Transf (AST/SGOT) 60H, Alanine Aminotransferase (ALT/SGPT) 91H, Alkaline Phosphatase 204H, Total Creatine Kinase 137, C-Reactive Protein, Quantitative 10.2H, Pro-B-Type Natriuretic Peptide 2885H, Total Protein 5.1L, Albumin 2.5L, Globulin 2.6, Albumin/Globulin Ratio 0.9L Height (Feet): 5 Height (Inches): 6.00 Weight (Pounds): 162 Objective WDWN man NCAT supple CTA RR abd mild distended, (+)large abd wound, dressing dry no edema ALVAREZ MARTINEZ Jul 31, 2016 20:49
[2016-08-01] VITALS (8 sets, daily range): BP systolic 145–164; BP diastolic 89–110
[2016-08-01] MEDS: Clindamycin 600mg 50 ML IV SCH ×3 (03:47→20:54)
[2016-08-01] MEDS ORDERED: Hydromorphone 0.5mg/0.5ml inj IVP PRN (04:45)
[2016-08-01] MEDS: Piperacillin/Tazobactam 3.375 GM in D5W 110 ML IVPB SCH ×2 (05:24→18:48)
[2016-08-01] MEDS ORDERED: Acetaminophen 650 MG SUPP RECTAL PRN (05:45)
[2016-08-01 06:15] LABS: MEAN CORPUSCULAR HEMOGLOBIN 31.1 PG (27.0-31.0); MEAN CORPUSCULAR VOLUME 89 FL (80-99); MEAN PLATELET VOLUME 7.7 FL (6.5-10.1); PLATELET COUNT 205 K/UL (150-450); RED BLOOD COUNT 3.08 M/UL (4.70-6.10); RED CELL DISTRIBUTION WIDTH 11.8 % (11.6-14.8); WHITE BLOOD COUNT 17.2 K/UL (4.8-10.8)
[2016-08-01 06:39] LABS: ALBUMIN/GLOBULIN RATIO 0.8 (1.0-2.7); CALCIUM 7.7 mg/dL (8.6-10.2); CREATININE 3.6 mg/dL (0.7-1.2); GLOMERULAR FILTRATION RATE 17.1 mL/min (>60); MAGNESIUM 1.9 mg/dL (1.7-2.5); PHOSPHORUS 3.4 mg/dL (2.5-4.8); POTASSIUM 3.2 mEQ/L (3.4-4.9); TOTAL PROTEIN 5.4 g/dL (6.6-8.7)
[2016-08-01 06:54] LABS: BILIRUBIN,DIRECT 0.6 mg/dL (0.1-0.3)
[2016-08-01] MEDS ORDERED: Metoclopramide 10mg/2ml Inj IVP PRN (07:00)
[2016-08-01] MEDS ORDERED: Simethicone 80mg tab NG PRN (08:00)
--- NOTE | 2016-08-01 08:08 | General Progress Note ---
Assessment/Plan Assessment/Plan (1) Small bowel obstruction (2) Intractable abdominal pain (3) Gangrene of the small bowel (4) S/p Exploratory Laparotomy resection of the small bowel with primary anastomosis. Pt will be continued on Dilaudid as needed. Pt was d/w Dr. Aguirre and he concurred. Subjective Date patient seen: Aug 01, 2016 Time patient seen: 07:30 - am Allergies: Coded Allergies: No Known Allergies (Unverified , 07/26/16) Subjective Constitutional: Reports: weakness, Denies: chills, diaphoresis, fever, malaise HEENT: Denies: blurred vision, double vision, ear discharge, ear pain, eye pain , mouth pain, mouth swelling, nose congestion, nose pain, tearing, throat pain, throat swelling Cardiovascular: Denies: chest pain, edema, irregular heart rate, lightheadedness, palpitations, syncope Respiratory: Denies: SOB at rest, SOB with exertion, cough, orthopnea, sputum, stridor, wheezing Gastrointestinal/Abdominal: Reports: abdomen distended, abdominal pain Denies: black stools, blood in stool, constipated, diarrhea, difficulty swallowing, poor appetite, poor fluid intake, rectal bleeding, tarry stools, vomiting Genitourinary: Denies: burning, discharge, flank pain, frequency, hematuria, incontinence, pain, urgency 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: Reports: weakness, Denies: anxiety, depressed, emotional problems, headache, numbness, paresthesia, pre-existing deficit, seizure, tingling, tremors Endocrine: Denies: excessive sweating, flushing, increased hunger, increased thirst, increased urine, intolerance to cold, intolerance to heat, unexplained weight gain, unexplained weight loss Hematologic/Lymphatic: Denies: anemia, easy bleeding, easy bruising Subjective Pt reports abdominal pain with gas, at this time at a 7/10 and tolerated on the Dilaudid. He has been transferred to med surg floor. D/w nurse and patient to use Dilaudid sparingly, as per nurse pt had another bowel movement earlier this morning. Objective Last 24 Hour Vital Signs Date Time Temp Pulse Resp B/P Pulse Ox O2 Delivery O2 Flow Rate FiO2 08/01/16 06:55 97.8 89 18 163/89 97 Room Air 08/01/16 03:53 85 20 160/96 96 08/01/16 00:00 98.2 90 20 154/101 96 Room Air 07/31/16 20:59 97.9 86 20 153/93 97 Room Air 07/31/16 19:49 88 07/31/16 16:00 98.2 83 20 153/84 07/31/16 16:00 83 07/31/16 14:22 97.0 07/31/16 12:00 97.3 95 22 160/99 91 Room Air 07/31/16 12:00 89 07/31/16 10:22 84 162/100 Intake and Output 07/31/16 08/01/16 19:00 07:00 Intake Total 2227.5 ml 1667.5 ml Output Total 1110 ml 775 ml Balance 1117.5 ml 892.5 ml Intake Oral 400 ml 240 ml IV Total 1027.5 ml 1427.5 ml Other 800 ml Output Urine Total 900 ml 600 ml Drainage Total 210 ml 175 ml # Bowel Movements 1 1 Laboratory Tests 08/01/16 05:30: White Blood Count 17.2H, Red Blood Count 3.08L, Hemoglobin 9.6L, Hematocrit 27.4L, Mean Corpuscular Volume 89, Mean Corpuscular Hemoglobin 31.1H, Mean Corpuscular Hemoglobin Concent 35.0, Red Cell Distribution Width 11.8, Platelet Count 205, Mean Platelet Volume 7.7, Neutrophils (%) (Auto) , Lymphocytes (%) ( Auto) , Monocytes (%) (Auto) , Eosinophils (%) (Auto) , Basophils (%) (Auto) , Neutrophils % (Manual) [Pending], Lymphocytes % (Manual) [Pending], Platelet Estimate [Pending], Platelet Morphology [Pending], Sodium Level 136, Potassium Level 3.2L, Chloride Level 101, Carbon Dioxide Level 21, Anion Gap 14, Blood Urea Nitrogen 45H, Creatinine 3.6H, Estimat Glomerular Filtration Rate 17.1, Glucose Level 154H, Calcium Level 7.7L, Phosphorus Level 3.4, Magnesium Level 1.9, Total Bilirubin 1.2, Direct Bilirubin 0.6H, Aspartate Amino Transf (AST/ SGOT) 54H, Alanine Aminotransferase (ALT/SGPT) 83H, Alkaline Phosphatase 232H, Total Protein 5.4L, Albumin 2.4L, Globulin 3.0, Albumin/Globulin Ratio 0.8L Height (Feet): 5 Height (Inches): 6.00 Weight (Pounds): 162 Objective General Appearance: alert EENT: PERRL/EOMI Neck: non-tender, supple Cardiovascular: normal rate, regular rhythm Respiratory/Chest: lungs clear Abdomen: other - tenderness to palpation Extremities: normal inspection Neurologic: alert, responsive Skin: warm/dry SHA BOSE Aug 01, 2016 08:08
[2016-08-01] MEDS: Enoxaparin 30mg Inj SUBQ SCH (08:12)
[2016-08-01] MEDS ORDERED: Pantoprazole Inj IVP SCH (09:00)
[2016-08-01 10:06] LABS: BAND NEUTROPHILS % (MANUAL) 0 % (0-8); BASOPHILS % (MANUAL) 0 % (0-2); EOSINOPHILS % (MANUAL) 2 % (0-3); HYPOCHROMASIA 1+; LYMPHOCYTES % (MANUAL) 8 % (20-45); NEUTROPHILS % (MANUAL) 81 % (45-75); PLATELET ESTIMATE ADEQUATE; PLATELET MORPHOLOGY NORMAL; TOTAL CELLS COUNTED 100
--- NOTE | 2016-08-01 11:06 | General Progress Note ---
Assessment/Plan Status: stable - from renal stand Assessment/Plan status: Septic Shock leading to acute renal failure- Cr leveling and lowering Abdominal Surgery 07/26/16 then again 05/27 Plan; post op care- Fluids Antibiotics- Protonix IV monitor renal parameters- Subjective ROS Limited/Unobtainable: No Constitutional: Reports: malaise, weakness Allergies: Coded Allergies: No Known Allergies (Unverified , 07/26/16) Objective Last 24 Hour Vital Signs Date Time Temp Pulse Resp B/P Pulse Ox O2 Delivery O2 Flow Rate FiO2 08/01/16 08:11 86 152/110 08/01/16 08:00 97.7 86 18 152/110 95 Room Air 08/01/16 06:55 97.8 89 18 163/89 97 Room Air 08/01/16 03:53 85 20 160/96 96 08/01/16 00:00 98.2 90 20 154/101 96 Room Air 07/31/16 20:59 97.9 86 20 153/93 97 Room Air 07/31/16 19:49 88 07/31/16 16:00 98.2 83 20 153/84 07/31/16 16:00 83 07/31/16 14:22 97.0 07/31/16 12:00 97.3 95 22 160/99 91 Room Air 07/31/16 12:00 89 Intake and Output 07/31/16 08/01/16 18:59 06:59 Intake Total 2050 ml 1845.0 ml Output Total 1110 ml 775 ml Balance 940 ml 1070.0 ml Intake Oral 400 ml 240 ml IV Total 850 ml 1605.0 ml Other 800 ml Output Urine Total 900 ml 600 ml Drainage Total 210 ml 175 ml # Bowel Movements 1 1 Laboratory Tests 08/01/16 05:30: White Blood Count 17.2H, Red Blood Count 3.08L, Hemoglobin 9.6L, Hematocrit 27.4L, Mean Corpuscular Volume 89, Mean Corpuscular Hemoglobin 31.1H, Mean Corpuscular Hemoglobin Concent 35.0, Red Cell Distribution Width 11.8, Platelet Count 205, Mean Platelet Volume 7.7, Neutrophils (%) (Auto) , Lymphocytes (%) ( Auto) , Monocytes (%) (Auto) , Eosinophils (%) (Auto) , Basophils (%) (Auto) , Differential Total Cells Counted 100, Neutrophils % (Manual) 81H, Lymphocytes % (Manual) 8L, Monocytes % (Manual) 9, Eosinophils % (Manual) 2, Basophils % ( Manual) 0, Band Neutrophils 0, Platelet Estimate Adequate, Platelet Morphology Normal, Hypochromasia 1+, Sodium Level 136, Potassium Level 3.2L, Chloride Level 101, Carbon Dioxide Level 21, Anion Gap 14, Blood Urea Nitrogen 45H, Creatinine 3.6H, Estimat Glomerular Filtration Rate 17.1, Glucose Level 154H, Calcium Level 7.7L, Phosphorus Level 3.4, Magnesium Level 1.9, Total Bilirubin 1.2, Direct Bilirubin 0.6H, Aspartate Amino Transf (AST/SGOT) 54H, Alanine Aminotransferase (ALT/SGPT) 83H, Alkaline Phosphatase 232H, Total Protein 5.4L, Albumin 2.4L, Globulin 3.0, Albumin/Globulin Ratio 0.8L Height (Feet): 5 Height (Inches): 6.00 Weight (Pounds): 162 General Appearance: mild distress Respiratory/Chest: decreased breath sounds Abdomen: distended Objective no other changes in PE REBECCA SCHULTE Aug 01, 2016 11:06
--- NOTE | 2016-08-01 12:49 | General Progress Note ---
Assessment/Plan Problem List: (1) Ileus ICD Codes: K56.7 - Ileus, unspecified SNOMED: 653122335 (2) Sepsis ICD Codes: A41.9 - Sepsis, unspecified organism SNOMED: 18947094 (3) Abdominal pain ICD Codes: R10.9 - Unspecified abdominal pain SNOMED: 20462407 (4) SBO (small bowel obstruction) ICD Codes: K56.69 - Other intestinal obstruction SNOMED: 906573867 (5) Abdominal gas pain ICD Codes: R14.1 - Gas pain SNOMED: 89190495 (6) Enteritis ICD Codes: K52.9 - Noninfective gastroenteritis and colitis, unspecified SNOMED: 52999677 Status: unchanged Assessment/Plan sbo s/p exploratory lap by dr zee moniter closely r/o septic shock lactic acidosis urine output is improved afebrile npo need to moniter very closely Subjective ROS Limited/Unobtainable: Yes Allergies: Coded Allergies: No Known Allergies (Unverified , 07/26/16) Objective Last 24 Hour Vital Signs Date Time Temp Pulse Resp B/P Pulse Ox O2 Delivery O2 Flow Rate FiO2 08/01/16 08:11 86 152/110 08/01/16 08:00 97.7 86 18 152/110 95 Room Air 08/01/16 06:55 97.8 89 18 163/89 97 Room Air 08/01/16 03:53 85 20 160/96 96 08/01/16 00:00 98.2 90 20 154/101 96 Room Air 07/31/16 20:59 97.9 86 20 153/93 97 Room Air 07/31/16 19:49 88 07/31/16 16:00 98.2 83 20 153/84 07/31/16 16:00 83 07/31/16 14:22 97.0 Intake and Output 07/31/16 08/01/16 19:00 07:00 Intake Total 2227.5 ml 1667.5 ml Output Total 1110 ml 775 ml Balance 1117.5 ml 892.5 ml Intake Oral 400 ml 240 ml IV Total 1027.5 ml 1427.5 ml Other 800 ml Output Urine Total 900 ml 600 ml Drainage Total 210 ml 175 ml # Bowel Movements 1 1 Laboratory Tests 08/01/16 05:30: White Blood Count 17.2H, Red Blood Count 3.08L, Hemoglobin 9.6L, Hematocrit 27.4L, Mean Corpuscular Volume 89, Mean Corpuscular Hemoglobin 31.1H, Mean Corpuscular Hemoglobin Concent 35.0, Red Cell Distribution Width 11.8, Platelet Count 205, Mean Platelet Volume 7.7, Neutrophils (%) (Auto) , Lymphocytes (%) ( Auto) , Monocytes (%) (Auto) , Eosinophils (%) (Auto) , Basophils (%) (Auto) , Differential Total Cells Counted 100, Neutrophils % (Manual) 81H, Lymphocytes % (Manual) 8L, Monocytes % (Manual) 9, Eosinophils % (Manual) 2, Basophils % ( Manual) 0, Band Neutrophils 0, Platelet Estimate Adequate, Platelet Morphology Normal, Hypochromasia 1+, Sodium Level 136, Potassium Level 3.2L, Chloride Level 101, Carbon Dioxide Level 21, Anion Gap 14, Blood Urea Nitrogen 45H, Creatinine 3.6H, Estimat Glomerular Filtration Rate 17.1, Glucose Level 154H, Calcium Level 7.7L, Phosphorus Level 3.4, Magnesium Level 1.9, Total Bilirubin 1.2, Direct Bilirubin 0.6H, Aspartate Amino Transf (AST/SGOT) 54H, Alanine Aminotransferase (ALT/SGPT) 83H, Alkaline Phosphatase 232H, Total Protein 5.4L, Albumin 2.4L, Globulin 3.0, Albumin/Globulin Ratio 0.8L Height (Feet): 5 Height (Inches): 6.00 Weight (Pounds): 162 General Appearance: confused Cardiovascular: normal rate Respiratory/Chest: lungs clear Abdomen: soft Teo Love MD Aug 01, 2016 12:49
[2016-08-01] MEDS: HYDROmorphone 1mg/ml Carpuject IVP PRN (14:25)
--- NOTE | 2016-08-01 15:25 | General Surgery Progress Note ---
General Surgery-Progress Note Subjective Procedure Performed Exploratory Laparotomy small bowel resection Symptoms: improved, BM Objective Last 24 Hour Vital Signs Date Time Temp Pulse Resp B/P Pulse Ox O2 Delivery O2 Flow Rate FiO2 08/01/16 12:00 97.7 95 22 145/93 97 Room Air 08/01/16 08:11 86 152/110 08/01/16 08:00 97.7 86 18 152/110 95 Room Air 08/01/16 06:55 97.8 89 18 163/89 97 Room Air 08/01/16 03:53 85 20 160/96 96 08/01/16 00:00 98.2 90 20 154/101 96 Room Air 07/31/16 20:59 97.9 86 20 153/93 97 Room Air 07/31/16 19:49 88 07/31/16 16:00 98.2 83 20 153/84 07/31/16 16:00 83 I&O Intake and Output 07/31/16 08/01/16 19:00 07:00 Intake Total 2227.5 ml 1667.5 ml Output Total 1110 ml 775 ml Balance 1117.5 ml 892.5 ml Intake Oral 400 ml 240 ml IV Total 1027.5 ml 1427.5 ml Other 800 ml Output Urine Total 900 ml 600 ml Drainage Total 210 ml 175 ml # Bowel Movements 1 1 Wound: clean, intact Drains: curtis Respiratory: clear Abdomen: soft, distended, non-tender, present bowel sounds Extremities: edema, no tenderness Laboratory Tests Test 08/01/16 05:30 White Blood Count 17.2 K/UL (4.8-10.8) H Red Blood Count 3.08 M/UL (4.70-6.10) L Hemoglobin 9.6 G/DL (14.2-18.0) L Hematocrit 27.4 % (42.0-52.0) L Mean Corpuscular Volume 89 FL (80-99) Mean Corpuscular Hemoglobin 31.1 PG (27.0-31.0) H Mean Corpuscular Hemoglobin Concent 35.0 G/DL (32.0-36.0) Red Cell Distribution Width 11.8 % (11.6-14.8) Platelet Count 205 K/UL (150-450) Mean Platelet Volume 7.7 FL (6.5-10.1) Neutrophils (%) (Auto) % (45.0-75.0) Lymphocytes (%) (Auto) % (20.0-45.0) Monocytes (%) (Auto) % (1.0-10.0) Eosinophils (%) (Auto) % (0.0-3.0) Basophils (%) (Auto) % (0.0-2.0) Differential Total Cells Counted 100 Neutrophils % (Manual) 81 % (45-75) H Lymphocytes % (Manual) 8 % (20-45) L Monocytes % (Manual) 9 % (1-10) Eosinophils % (Manual) 2 % (0-3) Basophils % (Manual) 0 % (0-2) Band Neutrophils 0 % (0-8) Platelet Estimate Adequate Platelet Morphology Normal Hypochromasia 1+ Sodium Level 136 mEQ/L (135-145) Potassium Level 3.2 mEQ/L (3.4-4.9) L Chloride Level 101 mEQ/L (98-107) Carbon Dioxide Level 21 mEQ/L (20-30) Anion Gap 14 (5-15) Blood Urea Nitrogen 45 mg/dL (7-23) H Creatinine 3.6 mg/dL (0.7-1.2) H Estimat Glomerular Filtration Rate 17.1 mL/min (>60) Glucose Level 154 mg/dL (74-106) H Calcium Level 7.7 mg/dL (8.6-10.2) L Phosphorus Level 3.4 mg/dL (2.5-4.8) Magnesium Level 1.9 mg/dL (1.7-2.5) Total Bilirubin 1.2 mg/dL (0.0-1.2) Direct Bilirubin 0.6 mg/dL (0.1-0.3) H Aspartate Amino Transf (AST/SGOT) 54 U/L (5-40) H Alanine Aminotransferase (ALT/SGPT) 83 U/L (3-41) H Alkaline Phosphatase 232 U/L (40-129) H Total Protein 5.4 g/dL (6.6-8.7) L Albumin 2.4 g/dL (3.5-5.2) L Globulin 3.0 g/dL Albumin/Globulin Ratio 0.8 (1.0-2.7) L Assessment Post-op Diagnosis Gangrene of small bowel Additional Comments leukocytosis R/O intra abdominal infection Plan Additional Comments advance diet continue IV Antibiotics EDWIN NOGUEIRA Aug 01, 2016 15:25
--- NOTE | 2016-08-01 15:53 | Diagnostic Imaging Report ---
Indications: DYSPNEA Technique: Portable AP chest Findings: Comparison: 07/28/16 Endotracheal tube has been removed. Remaining lines and tubes remain in place. Pulmonary bibasal parenchymal opacities, suggestion of bilateral pleural effusions persist, unchanged. Cardiac mediastinal silhouette stable. No new abnormality demonstrated. IMPRESSION: Endotracheal extubation No other significant change from 2 days prior
--- NOTE | 2016-08-01 16:41 | Cardiac Electrophysiology PN ---
Assessment/Plan Assessment/Plan 1. NSTEMI with elevated troponin due to demand ischemia vs renal failure. ECG non ischemic. Troponin down to 0.33. Echo NL EF.Continue Lopressor 25 bid. 2. S/P Septic shock due to small bowel obstruction and gangrene. Off pressors.On iv fluid and antibiotics.WBC rising again. 3. HTN.Better with Lopressor 25 bid.Avoid ACEI or ARB for renal failure 4. Small bowel obstruction status post laparotomy and small bowel resection. Follow up Dr Murrieta. 5. Respiratory failure . Extubated 6. Renal failure, creatinine 4.4. Down to 3.[address] Rai. DW family and RN Subjective Subjective Transferred to [facility]. RN and family at bedside. Abdominal drain in place. Objective Last 24 Hour Vital Signs Date Time Temp Pulse Resp B/P Pulse Ox O2 Delivery O2 Flow Rate FiO2 08/01/16 16:27 97.9 94 20 164/100 98 08/01/16 12:00 97.7 95 22 145/93 97 Room Air 08/01/16 08:11 86 152/110 08/01/16 08:00 97.7 86 18 152/110 95 Room Air 08/01/16 06:55 97.8 89 18 163/89 97 Room Air 08/01/16 03:53 85 20 160/96 96 08/01/16 00:00 98.2 90 20 154/101 96 Room Air 07/31/16 20:59 97.9 86 20 153/93 97 Room Air 07/31/16 19:49 88 Intake and Output 07/31/16 08/01/16 19:00 07:00 Intake Total 2227.5 ml 1667.5 ml Output Total 1110 ml 775 ml Balance 1117.5 ml 892.5 ml Intake Oral 400 ml 240 ml IV Total 1027.5 ml 1427.5 ml Other 800 ml Output Urine Total 900 ml 600 ml Drainage Total 210 ml 175 ml # Bowel Movements 1 1 Laboratory Tests Test 08/01/16 05:30 White Blood Count 17.2 K/UL (4.8-10.8) H Red Blood Count 3.08 M/UL (4.70-6.10) L Hemoglobin 9.6 G/DL (14.2-18.0) L Hematocrit 27.4 % (42.0-52.0) L Mean Corpuscular Volume 89 FL (80-99) Mean Corpuscular Hemoglobin 31.1 PG (27.0-31.0) H Mean Corpuscular Hemoglobin Concent 35.0 G/DL (32.0-36.0) Red Cell Distribution Width 11.8 % (11.6-14.8) Platelet Count 205 K/UL (150-450) Mean Platelet Volume 7.7 FL (6.5-10.1) Neutrophils (%) (Auto) % (45.0-75.0) Lymphocytes (%) (Auto) % (20.0-45.0) Monocytes (%) (Auto) % (1.0-10.0) Eosinophils (%) (Auto) % (0.0-3.0) Basophils (%) (Auto) % (0.0-2.0) Differential Total Cells Counted 100 Neutrophils % (Manual) 81 % (45-75) H Lymphocytes % (Manual) 8 % (20-45) L Monocytes % (Manual) 9 % (1-10) Eosinophils % (Manual) 2 % (0-3) Basophils % (Manual) 0 % (0-2) Band Neutrophils 0 % (0-8) Platelet Estimate Adequate Platelet Morphology Normal Hypochromasia 1+ Sodium Level 136 mEQ/L (135-145) Potassium Level 3.2 mEQ/L (3.4-4.9) L Chloride Level 101 mEQ/L (98-107) Carbon Dioxide Level 21 mEQ/L (20-30) Anion Gap 14 (5-15) Blood Urea Nitrogen 45 mg/dL (7-23) H Creatinine 3.6 mg/dL (0.7-1.2) H Estimat Glomerular Filtration Rate 17.1 mL/min (>60) Glucose Level 154 mg/dL (74-106) H Calcium Level 7.7 mg/dL (8.6-10.2) L Phosphorus Level 3.4 mg/dL (2.5-4.8) Magnesium Level 1.9 mg/dL (1.7-2.5) Total Bilirubin 1.2 mg/dL (0.0-1.2) Direct Bilirubin 0.6 mg/dL (0.1-0.3) H Aspartate Amino Transf (AST/SGOT) 54 U/L (5-40) H Alanine Aminotransferase (ALT/SGPT) 83 U/L (3-41) H Alkaline Phosphatase 232 U/L (40-129) H Total Protein 5.4 g/dL (6.6-8.7) L Albumin 2.4 g/dL (3.5-5.2) L Globulin 3.0 g/dL Albumin/Globulin Ratio 0.8 (1.0-2.7) L Objective HEAD AND NECK: No JVD. LUNGS: Clear CARDIOVASCULAR: Nl S1 and S2 with no gallop or murmur. ABDOMEN: Post median laparotomy.DAKOTA drain still draining. EXTREMITIES: No pitting edema. HONEY DUKE Aug 01, 2016 16:41
--- NOTE | 2016-08-01 16:47 | Infectious Diseases Prog Note ---
Assessment/Plan Problems: (1) Septic shock Assessment & Plan: had leukocytosis today while on zosyn and clindamycin, will repeat blood culture and check stool for C diff, continue clindamycin and zosyn for now, initial blood culture was negative so far , and abdominal fluids culture showed no growth. (2) SBO (small bowel obstruction) Assessment & Plan: S/P EX LAP , has ileus post OP, now improving, continue IVF , and pain management , general surgery is following (3) Abdominal pain Assessment & Plan: continue pain management, surgery is following (4) MIGNON (acute kidney injury) Assessment & Plan: due to sepsis and hypotension, continue IVF, titrate to keep SBP >100, renal is following (5) Ileus Assessment & Plan: due to EX LAP, improved, had multiple bowel movements, tolerated diet well Subjective Constitutional: Reports: no symptoms HEENT: Reports: no symptoms Respiratory: Reports: no symptoms Breasts: Reports: no symptoms Cardiovascular: Reports: no symptoms Gastrointestinal/Abdominal: Reports: bloating, diarrhea, other - abdominal pain Genitourinary: Reports: no symptoms Neurologic: Reports: no symptoms Psychiatric: Reports: no symptoms Skin: Reports: no symptoms Endocrine: Reports: no symptoms Allergies: Coded Allergies: No Known Allergies (Unverified , 07/26/16) Subjective he had two bowel movement today watery ,nonbloody, no fever or chills, no cough or SOB, has more abdominal pain today , tolerated liquid diet Objective Vital Signs Last 24 Hour Vital Signs Date Time Temp Pulse Resp B/P Pulse Ox O2 Delivery O2 Flow Rate FiO2 08/01/16 16:27 97.9 94 20 164/100 98 08/01/16 12:00 97.7 95 22 145/93 97 Room Air 08/01/16 08:11 86 152/110 08/01/16 08:00 97.7 86 18 152/110 95 Room Air 08/01/16 06:55 97.8 89 18 163/89 97 Room Air 08/01/16 03:53 85 20 160/96 96 08/01/16 00:00 98.2 90 20 154/101 96 Room Air 07/31/16 20:59 97.9 86 20 153/93 97 Room Air 07/31/16 19:49 88 Height (Feet): 5 Height (Inches): 6.00 Weight (Pounds): 162 General Appearance: WD/WN, no acute distress HEENT: normocephalic, atraumatic, anicteric, mucous membranes moist Respiratory/Chest: chest wall non-tender, normal breath sounds, no respiratory distress, no accessory muscle use, decreased breath sounds, crackles/rales Cardiovascular: normal peripheral pulses, normal rate, regular rhythm, no gallop/murmur Abdomen: no organomegaly, no mass, no scars, hyperactive bowel sounds, distended, tender Extremities: no cyanosis, no clubbing Skin: no rash, no lesions, no ulcers Laboratory Tests Test 08/01/16 05:30 White Blood Count 17.2 K/UL (4.8-10.8) H Red Blood Count 3.08 M/UL (4.70-6.10) L Hemoglobin 9.6 G/DL (14.2-18.0) L Hematocrit 27.4 % (42.0-52.0) L Mean Corpuscular Volume 89 FL (80-99) Mean Corpuscular Hemoglobin 31.1 PG (27.0-31.0) H Mean Corpuscular Hemoglobin Concent 35.0 G/DL (32.0-36.0) Red Cell Distribution Width 11.8 % (11.6-14.8) Platelet Count 205 K/UL (150-450) Mean Platelet Volume 7.7 FL (6.5-10.1) Neutrophils (%) (Auto) % (45.0-75.0) Lymphocytes (%) (Auto) % (20.0-45.0) Monocytes (%) (Auto) % (1.0-10.0) Eosinophils (%) (Auto) % (0.0-3.0) Basophils (%) (Auto) % (0.0-2.0) Differential Total Cells Counted 100 Neutrophils % (Manual) 81 % (45-75) H Lymphocytes % (Manual) 8 % (20-45) L Monocytes % (Manual) 9 % (1-10) Eosinophils % (Manual) 2 % (0-3) Basophils % (Manual) 0 % (0-2) Band Neutrophils 0 % (0-8) Platelet Estimate Adequate Platelet Morphology Normal Hypochromasia 1+ Sodium Level 136 mEQ/L (135-145) Potassium Level 3.2 mEQ/L (3.4-4.9) L Chloride Level 101 mEQ/L (98-107) Carbon Dioxide Level 21 mEQ/L (20-30) Anion Gap 14 (5-15) Blood Urea Nitrogen 45 mg/dL (7-23) H Creatinine 3.6 mg/dL (0.7-1.2) H Estimat Glomerular Filtration Rate 17.1 mL/min (>60) Glucose Level 154 mg/dL (74-106) H Calcium Level 7.7 mg/dL (8.6-10.2) L Phosphorus Level 3.4 mg/dL (2.5-4.8) Magnesium Level 1.9 mg/dL (1.7-2.5) Total Bilirubin 1.2 mg/dL (0.0-1.2) Direct Bilirubin 0.6 mg/dL (0.1-0.3) H Aspartate Amino Transf (AST/SGOT) 54 U/L (5-40) H Alanine Aminotransferase (ALT/SGPT) 83 U/L (3-41) H Alkaline Phosphatase 232 U/L (40-129) H Total Protein 5.4 g/dL (6.6-8.7) L Albumin 2.4 g/dL (3.5-5.2) L Globulin 3.0 g/dL Albumin/Globulin Ratio 0.8 (1.0-2.7) L Current Medications Medications (Trade) Dose Ordered Sig/Arti Route PRN Reason Start Time Stop Time Status Last Admin Dose Admin Acetaminophen (Tylenol) 650 mg Q4H PRN ORAL Mild Pain/Temp > 100.5 08/01/16 16:15 08/31/16 16:14 Amlodipine Besylate (Norvasc) 5 mg Q12HR ORAL 08/01/16 21:00 08/31/16 20:59 Clindamycin HCl/ Dextrose 50 ml @ 100 mls/hr Q8HR@0400,1200,2000 IV 08/01/16 12:00 08/08/16 11:59 08/01/16 11:33 Dextrose/ Electrolytes (D5 0.45%NS W/ KCl 20mEq) 1,000 ml @ 20 mls/hr Q24H IV 08/01/16 18:00 08/31/16 17:59 Enoxaparin Sodium (Lovenox) 30 mg DAILY SUBQ 08/01/16 09:00 2/16/17 08:59 08/01/16 08:12 Hydromorphone HCl (Dilaudid) 0.5 mg Q3H PRN IVP Pain Score 1-3 08/01/16 04:45 08/08/16 04:44 Hydromorphone HCl (Dilaudid) 1 mg Q3H PRN IVP pain score 4-6 08/01/16 04:45 08/08/16 04:44 08/01/16 14:25 Hydromorphone HCl (Dilaudid) 2 mg Q3H PRN IVP pain score 7-10 08/01/16 04:45 08/08/16 04:44 08/01/16 06:43 Pantoprazole 40 mg 40 mg DAILY ORAL 08/02/16 09:00 09/01/16 08:59 Piperacillin Sod/ Tazobactam Sod/ Dextrose (Zosyn/D5W 100ml) 110 ml @ 27.5 mls/hr Q12HR@0600,1800 IVPB 08/01/16 06:00 08/08/16 05:59 08/01/16 05:24 Simethicone (Mylicon) 80 mg QIDPRN PRN NG GAS PAIN 08/01/16 08:00 08/31/16 07:59 Piyush Harris M.D. Aug 01, 2016 16:47
--- NOTE | 2016-08-01 17:06 | Pulmonology Progress Note ---
Assessment/Plan Problems: (1) SBO (small bowel obstruction) (2) MIGNON (acute kidney injury) (3) Ileus (4) Enteritis (5) Non-ST elevation (NSTEMI) myocardial infarction Assessment/Plan improving continue antibiotics check electrolytes Jtube still draining advance diet keep same IV fluids check electrolytes daily med/surg d/w dr luna Subjective Gastrointestinal/Abdominal: Reports: bloating, constipation, nausea Allergies: Coded Allergies: No Known Allergies (Unverified , 07/26/16) Objective Last 24 Hour Vital Signs Date Time Temp Pulse Resp B/P Pulse Ox O2 Delivery O2 Flow Rate FiO2 08/01/16 16:27 97.9 94 20 164/100 98 08/01/16 12:00 97.7 95 22 145/93 97 Room Air 08/01/16 08:11 86 152/110 08/01/16 08:00 97.7 86 18 152/110 95 Room Air 08/01/16 06:55 97.8 89 18 163/89 97 Room Air 08/01/16 03:53 85 20 160/96 96 08/01/16 00:00 98.2 90 20 154/101 96 Room Air 07/31/16 20:59 97.9 86 20 153/93 97 Room Air 07/31/16 19:49 88 Intake and Output 07/31/16 08/01/16 19:00 07:00 Intake Total 2227.5 ml 1667.5 ml Output Total 1110 ml 775 ml Balance 1117.5 ml 892.5 ml Intake Oral 400 ml 240 ml IV Total 1027.5 ml 1427.5 ml Other 800 ml Output Urine Total 900 ml 600 ml Drainage Total 210 ml 175 ml # Bowel Movements 1 1 General Appearance: no acute distress HEENT: normocephalic, atraumatic, anicteric, PERRL Respiratory/Chest: chest wall non-tender, decreased breath sounds, accessory muscle use Cardiovascular: normal peripheral pulses, normal rate, regular rhythm Abdomen: absent bowel sounds, distended, guarding, tender, rebound tenderness Genitourinary: normal external genitalia Extremities: no cyanosis Skin: no rash, no lesions 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: blueprint reader II-XII grossly normal, no motor/sensory deficits Laboratory Tests 08/01/16 05:30: White Blood Count 17.2H, Red Blood Count 3.08L, Hemoglobin 9.6L, Hematocrit 27.4L, Mean Corpuscular Volume 89, Mean Corpuscular Hemoglobin 31.1H, Mean Corpuscular Hemoglobin Concent 35.0, Red Cell Distribution Width 11.8, Platelet Count 205, Mean Platelet Volume 7.7, Neutrophils (%) (Auto) , Lymphocytes (%) ( Auto) , Monocytes (%) (Auto) , Eosinophils (%) (Auto) , Basophils (%) (Auto) , Differential Total Cells Counted 100, Neutrophils % (Manual) 81H, Lymphocytes % (Manual) 8L, Monocytes % (Manual) 9, Eosinophils % (Manual) 2, Basophils % ( Manual) 0, Band Neutrophils 0, Platelet Estimate Adequate, Platelet Morphology Normal, Hypochromasia 1+, Sodium Level 136, Potassium Level 3.2L, Chloride Level 101, Carbon Dioxide Level 21, Anion Gap 14, Blood Urea Nitrogen 45H, Creatinine 3.6H, Estimat Glomerular Filtration Rate 17.1, Glucose Level 154H, Calcium Level 7.7L, Phosphorus Level 3.4, Magnesium Level 1.9, Total Bilirubin 1.2, Direct Bilirubin 0.6H, Aspartate Amino Transf (AST/SGOT) 54H, Alanine Aminotransferase (ALT/SGPT) 83H, Alkaline Phosphatase 232H, Total Protein 5.4L, Albumin 2.4L, Globulin 3.0, Albumin/Globulin Ratio 0.8L Current Medications Medications (Trade) Dose Ordered Sig/Arti Route PRN Reason Start Time Stop Time Status Last Admin Dose Admin Acetaminophen (Tylenol) 650 mg Q4H PRN ORAL Mild Pain/Temp > 100.5 08/01/16 16:15 08/31/16 16:14 Amlodipine Besylate (Norvasc) 5 mg Q12HR ORAL 08/01/16 21:00 08/31/16 20:59 Clindamycin HCl/ Dextrose 50 ml @ 100 mls/hr Q8HR@0400,1200,2000 IV 08/01/16 12:00 08/08/16 11:59 08/01/16 11:33 Dextrose/ Electrolytes (D5 0.45%NS W/ KCl 20mEq) 1,000 ml @ 20 mls/hr Q24H IV 08/01/16 18:00 08/31/16 17:59 Enoxaparin Sodium (Lovenox) 30 mg DAILY SUBQ 08/01/16 09:00 08/31/16 08:59 08/01/16 08:12 Hydromorphone HCl (Dilaudid) 0.5 mg Q3H PRN IVP Pain Score 1-3 08/01/16 04:45 08/08/16 04:44 Hydromorphone HCl (Dilaudid) 1 mg Q3H PRN IVP pain score 4-6 08/01/16 04:45 08/08/16 04:44 08/01/16 14:25 Hydromorphone HCl (Dilaudid) 2 mg Q3H PRN IVP pain score 7-10 08/01/16 04:45 08/08/16 04:44 08/01/16 06:43 Metoprolol Tartrate (Lopressor) 25 mg Q12HR ORAL 08/01/16 18:00 08/31/16 17:59 Pantoprazole 40 mg 40 mg DAILY ORAL 08/02/16 09:00 09/01/16 08:59 Piperacillin Sod/ Tazobactam Sod/ Dextrose (Zosyn/D5W 100ml) 110 ml @ 27.5 mls/hr Q12HR@0600,1800 IVPB 08/01/16 06:00 08/08/16 05:59 08/01/16 05:24 Simethicone (Mylicon) 80 mg QIDPRN PRN NG GAS PAIN 08/01/16 08:00 08/31/16 07:59 MAIKEL ESPINOSA Aug 01, 2016 17:06
[2016-08-01] MEDS: D5 1/2NS w/KCl 20mEq 1,000 ML IV SCH ×2 (18:00→22:26)
[2016-08-01] MEDS: Metoprolol 25mg tab ORAL SCH (18:48)
--- NOTE | 2016-08-01 22:37 | General Progress Note ---
Assessment/Plan Assessment/Plan Assessment - SBO / gangrene - resected - septic shock - recovered - ATN - improved - abnormal LFT - ? shocked liver - resolving - lactic acidosis - improved - s/p ex lap Recommendations IVF abx PPI follow labs supportive care surgical f/u Subjective Allergies: Coded Allergies: No Known Allergies (Unverified , 07/26/16) Subjective above all noted less pain (+) flatus and BM (+) tolerating solids Objective Last 24 Hour Vital Signs Date Time Temp Pulse Resp B/P Pulse Ox O2 Delivery O2 Flow Rate FiO2 08/01/16 21:27 98.2 08/01/16 20:55 73 149/105 08/01/16 20:38 98.2 73 19 149/105 98 Room Air 08/01/16 18:48 94 164/100 08/01/16 16:27 97.9 94 20 164/100 98 08/01/16 12:00 97.7 95 22 145/93 97 Room Air 08/01/16 08:11 86 152/110 08/01/16 08:00 97.7 86 18 152/110 95 Room Air 08/01/16 06:55 97.8 89 18 163/89 97 Room Air 08/01/16 03:53 85 20 160/96 96 08/01/16 00:00 98.2 90 20 154/101 96 Room Air Intake and Output 07/31/16 08/01/16 19:00 07:00 Intake Total 2227.5 ml 1667.5 ml Output Total 1110 ml 775 ml Balance 1117.5 ml 892.5 ml Intake Oral 400 ml 240 ml IV Total 1027.5 ml 1427.5 ml Other 800 ml Output Urine Total 900 ml 600 ml Drainage Total 210 ml 175 ml # Bowel Movements 1 1 Laboratory Tests 08/01/16 05:30: White Blood Count 17.2H, Red Blood Count 3.08L, Hemoglobin 9.6L, Hematocrit 27.4L, Mean Corpuscular Volume 89, Mean Corpuscular Hemoglobin 31.1H, Mean Corpuscular Hemoglobin Concent 35.0, Red Cell Distribution Width 11.8, Platelet Count 205, Mean Platelet Volume 7.7, Neutrophils (%) (Auto) , Lymphocytes (%) ( Auto) , Monocytes (%) (Auto) , Eosinophils (%) (Auto) , Basophils (%) (Auto) , Differential Total Cells Counted 100, Neutrophils % (Manual) 81H, Lymphocytes % (Manual) 8L, Monocytes % (Manual) 9, Eosinophils % (Manual) 2, Basophils % ( Manual) 0, Band Neutrophils 0, Platelet Estimate Adequate, Platelet Morphology Normal, Hypochromasia 1+, Sodium Level 136, Potassium Level 3.2L, Chloride Level 101, Carbon Dioxide Level 21, Anion Gap 14, Blood Urea Nitrogen 45H, Creatinine 3.6H, Estimat Glomerular Filtration Rate 17.1, Glucose Level 154H, Calcium Level 7.7L, Phosphorus Level 3.4, Magnesium Level 1.9, Total Bilirubin 1.2, Direct Bilirubin 0.6H, Aspartate Amino Transf (AST/SGOT) 54H, Alanine Aminotransferase (ALT/SGPT) 83H, Alkaline Phosphatase 232H, Total Protein 5.4L, Albumin 2.4L, Globulin 3.0, Albumin/Globulin Ratio 0.8L Height (Feet): 5 Height (Inches): 6.00 Weight (Pounds): 162 Objective WDWN man NCAT supple CTA RR abd mild distended, (+)large abd wound, dressing dry no edema ALVAREZ MARTINEZ Aug 01, 2016 22:37
--- NOTE | 2016-08-01 22:48 | General Progress Note ---
Assessment/Plan Assessment/Plan ASSESSMENT: 1. Leukocytosis. Likely 2/2 underlying infection. Peripheral smear has been within normal limits 2. Anemia 2/2 chronic disease, does not require iron 3. Sepsis, likely contributing to leukocytosis. Now improved 4. Abdominal pain due to small bowel obstruction. Now improved 5. Small bowel obstruction. status post exploratory laparotomy 6. Anemia 2/2 hemodilution RECOMMENDATIONS: 1. Monitor counts 2. Have reviewed anemia workup, does not need iron 3. Follow up on Surgery, Pulm, ID recs 4. Imaging reviewed. 5. Transfuse if hgb <7. 6. DVT ppx lovenox 7. GI ppx ppi 8. DW staff Thank you, Andrew Mendez MD Subjective Constitutional: Reports: no symptoms HEENT: Reports: no symptoms Respiratory: Reports: no symptoms 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: Reports: no symptoms Endocrine: Reports: no symptoms Hematologic/Lymphatic: Reports: anemia Allergies: Coded Allergies: No Known Allergies (Unverified , 07/26/16) Subjective stable, no bleeding reported.no hematochezia or hematemesis Objective Last 24 Hour Vital Signs Date Time Temp Pulse Resp B/P Pulse Ox O2 Delivery O2 Flow Rate FiO2 08/01/16 21:27 98.2 08/01/16 20:55 73 149/105 08/01/16 20:38 98.2 73 19 149/105 98 Room Air 08/01/16 18:48 94 164/100 08/01/16 16:27 97.9 94 20 164/100 98 08/01/16 12:00 97.7 95 22 145/93 97 Room Air 08/01/16 08:11 86 152/110 08/01/16 08:00 97.7 86 18 152/110 95 Room Air 08/01/16 06:55 97.8 89 18 163/89 97 Room Air Intake and Output 08/01/16 08/01/16 11:00 23:00 Intake Total 940 ml 480 ml Output Total 700 ml 560 ml Balance 240 ml -80 ml Intake Oral 240 ml 480 ml IV Total 700 ml Output Urine Total 600 ml 200 ml Drainage Total 100 ml 360 ml # Voids 2 # Bowel Movements 1 1 Laboratory Tests 08/01/16 05:30: White Blood Count 17.2H, Red Blood Count 3.08L, Hemoglobin 9.6L, Hematocrit 27.4L, Mean Corpuscular Volume 89, Mean Corpuscular Hemoglobin 31.1H, Mean Corpuscular Hemoglobin Concent 35.0, Red Cell Distribution Width 11.8, Platelet Count 205, Mean Platelet Volume 7.7, Neutrophils (%) (Auto) , Lymphocytes (%) ( Auto) , Monocytes (%) (Auto) , Eosinophils (%) (Auto) , Basophils (%) (Auto) , Differential Total Cells Counted 100, Neutrophils % (Manual) 81H, Lymphocytes % (Manual) 8L, Monocytes % (Manual) 9, Eosinophils % (Manual) 2, Basophils % ( Manual) 0, Band Neutrophils 0, Platelet Estimate Adequate, Platelet Morphology Normal, Hypochromasia 1+, Sodium Level 136, Potassium Level 3.2L, Chloride Level 101, Carbon Dioxide Level 21, Anion Gap 14, Blood Urea Nitrogen 45H, Creatinine 3.6H, Estimat Glomerular Filtration Rate 17.1, Glucose Level 154H, Calcium Level 7.7L, Phosphorus Level 3.4, Magnesium Level 1.9, Total Bilirubin 1.2, Direct Bilirubin 0.6H, Aspartate Amino Transf (AST/SGOT) 54H, Alanine Aminotransferase (ALT/SGPT) 83H, Alkaline Phosphatase 232H, Total Protein 5.4L, Albumin 2.4L, Globulin 3.0, Albumin/Globulin Ratio 0.8L Height (Feet): 5 Height (Inches): 6.00 Weight (Pounds): 162 Andrew Mendez Aug 01, 2016 22:48
[2016-08-02] VITALS (13 sets, daily range): BP systolic 123–155; BP diastolic 73–93
[2016-08-02] MEDS: Clindamycin 600mg 50 ML IV SCH ×3 (04:13→22:00)
[2016-08-02] MEDS: HYDROmorphone 1mg/ml Carpuject IVP PRN (04:37)
[2016-08-02] MEDS: Piperacillin/Tazobactam 3.375 GM in D5W 110 ML IVPB SCH ×2 (05:22→17:20)
[2016-08-02 07:22] LABS: BASOPHILS % (AUTO) 0.5 % (0.0-2.0); LYMPHOCYTES % (AUTO) 3.2 % (20.0-45.0); MEAN CORPUSCULAR HEMOGLOBIN 30.4 PG (27.0-31.0); MEAN CORPUSCULAR HGB CONC 33.8 G/DL (32.0-36.0); MEAN CORPUSCULAR VOLUME 90 FL (80-99); MEAN PLATELET VOLUME 7.8 FL (6.5-10.1); MONOCYTES % (AUTO) 8.9 % (1.0-10.0); NEUTROPHILS % (AUTO) 84.5 % (45.0-75.0); PLATELET COUNT 241 K/UL (150-450); RED BLOOD COUNT 3.08 M/UL (4.70-6.10); RED CELL DISTRIBUTION WIDTH 12.2 % (11.6-14.8); WHITE BLOOD COUNT 17.4 K/UL (4.8-10.8)
[2016-08-02 07:35] LABS: ALBUMIN/GLOBULIN RATIO 0.9 (1.0-2.7); CALCIUM 8.1 mg/dL (8.6-10.2); CREATININE 3.6 mg/dL (0.7-1.2); CRP QUANT 16.1 mg/dL (< 0.5); GLOMERULAR FILTRATION RATE 17.1 mL/min (>60); MAGNESIUM 1.9 mg/dL (1.7-2.5); PHOSPHORUS 3.6 mg/dL (2.5-4.8); POTASSIUM 3.6 mEQ/L (3.4-4.9); TOTAL PROTEIN 5.7 g/dL (6.6-8.7)
--- NOTE | 2016-08-02 08:00 | General Progress Note ---
Subjective Allergies: Coded Allergies: No Known Allergies (Unverified , 07/26/16) SHA BOSE Aug 02, 2016 08:00
--- NOTE | 2016-08-02 08:13 | General Progress Note ---
Assessment/Plan Assessment/Plan (1) Small bowel obstruction (2) Intractable abdominal pain (3) Gangrene of the small bowel (4) S/p Exploratory Laparotomy resection of the small bowel with primary anastomosis. Pt will be continued on Dilaudid as needed. Pt was d/w Dr. Aguirre and he concurred. Subjective Date patient seen: Aug 02, 2016 Time patient seen: 07:15 - am Allergies: Coded Allergies: No Known Allergies (Unverified , 07/26/16) Subjective Constitutional: Reports: weakness, Denies: chills, diaphoresis, fever, malaise HEENT: Denies: blurred vision, double vision, ear discharge, ear pain, eye pain , mouth pain, mouth swelling, nose congestion, nose pain, tearing, throat pain, throat swelling Cardiovascular: Denies: chest pain, edema, irregular heart rate, lightheadedness, palpitations, syncope Respiratory: Denies: SOB at rest, SOB with exertion, cough, orthopnea, sputum, stridor, wheezing Gastrointestinal/Abdominal: Reports: abdomen distended, abdominal pain Denies: black stools, blood in stool, constipated, diarrhea, difficulty swallowing, poor appetite, poor fluid intake, rectal bleeding, tarry stools, vomiting Genitourinary: Denies: burning, discharge, flank pain, frequency, hematuria, incontinence, pain, urgency 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: Reports: weakness, Denies: anxiety, depressed, emotional problems, headache, numbness, paresthesia, pre-existing deficit, seizure, tingling, tremors Endocrine: Denies: excessive sweating, flushing, increased hunger, increased thirst, increased urine, intolerance to cold, intolerance to heat, unexplained weight gain, unexplained weight loss Hematologic/Lymphatic: Denies: anemia, easy bleeding, easy bruising Subjective Pt is c/o gas and nausea, pain fluctuates and uses the medication as needed, which has been tolerating his pain. Objective Last 24 Hour Vital Signs Date Time Temp Pulse Resp B/P Pulse Ox O2 Delivery O2 Flow Rate FiO2 08/02/16 05:07 98.2 08/02/16 04:00 97.7 83 21 152/93 97 Room Air 08/02/16 00:00 98.2 77 21 144/89 95 Room Air 08/01/16 21:27 98.2 08/01/16 20:55 73 149/105 08/01/16 20:38 98.2 73 19 149/105 98 Room Air 08/01/16 18:48 94 164/100 08/01/16 17:30 91 148/98 08/01/16 16:27 97.9 94 20 164/100 98 08/01/16 12:00 97.7 95 22 145/93 97 Room Air Intake and Output 08/01/16 08/02/16 19:00 07:00 Intake Total 240 ml 390 ml Output Total 440 ml 810 ml Balance -200 ml -420 ml Intake Oral 240 ml 240 ml IV Total 150 ml Output Urine Total 200 ml 580 ml Drainage Total 240 ml 230 ml # Voids 2 4 # Bowel Movements 1 Laboratory Tests 08/02/16 05:40: White Blood Count 17.4H, Red Blood Count 3.08L, Hemoglobin 9.3L, Hematocrit 27.6L, Mean Corpuscular Volume 90, Mean Corpuscular Hemoglobin 30.4, Mean Corpuscular Hemoglobin Concent 33.8, Red Cell Distribution Width 12.2, Platelet Count 241, Mean Platelet Volume 7.8, Neutrophils (%) (Auto) 84.5H, Lymphocytes ( %) (Auto) 3.2L, Monocytes (%) (Auto) 8.9, Eosinophils (%) (Auto) 3.0, Basophils (%) (Auto) 0.5, Sodium Level 138, Potassium Level 3.6, Chloride Level 100, Carbon Dioxide Level 20, Anion Gap 18H, Blood Urea Nitrogen 46H, Creatinine 3.6H , Estimat Glomerular Filtration Rate 17.1, Glucose Level 155H, Uric Acid 6.0, Calcium Level 8.1L, Phosphorus Level 3.6, Magnesium Level 1.9, Total Bilirubin 1.0, Gamma Glutamyl Transpeptidase 368H, Aspartate Amino Transf (AST/SGOT) 62H, Alanine Aminotransferase (ALT/SGPT) 90H, Alkaline Phosphatase 322H, C-Reactive Protein, Quantitative 16.1H, Pro-B-Type Natriuretic Peptide 1161H, Total Protein 5.7L, Albumin 2.7L, Globulin 3.0, Albumin/Globulin Ratio 0.9L Height (Feet): 5 Height (Inches): 6.00 Weight (Pounds): 162 Objective General Appearance: alert EENT: PERRL/EOMI Neck: non-tender, supple Cardiovascular: normal rate, regular rhythm Respiratory/Chest: lungs clear Abdomen: other - tenderness to palpation bandages applied Extremities: normal inspection Neurologic: alert, responsive Skin: warm/dry SHA BOSE Aug 02, 2016 08:13
[2016-08-02] MEDS: Metoprolol 25mg tab ORAL SCH ×2 (09:06→21:00)
[2016-08-02] MEDS: Enoxaparin 30mg Inj SUBQ SCH (09:09)
--- NOTE | 2016-08-02 11:38 | General Progress Note ---
Assessment/Plan Problem List: (1) Ileus ICD Codes: K56.7 - Ileus, unspecified SNOMED: 443908080 (2) Sepsis ICD Codes: A41.9 - Sepsis, unspecified organism SNOMED: 70483178 (3) Abdominal pain ICD Codes: R10.9 - Unspecified abdominal pain SNOMED: 52728856 (4) SBO (small bowel obstruction) ICD Codes: K56.69 - Other intestinal obstruction SNOMED: 096462922 (5) Abdominal gas pain ICD Codes: R14.1 - Gas pain SNOMED: 54945395 (6) Enteritis ICD Codes: K52.9 - Noninfective gastroenteritis and colitis, unspecified SNOMED: 42567222 Status: progressing Assessment/Plan sbo s/p exploratory lap by dr yayo atkinson closely r/o septic shock lactic acidosis will discuss w surgeon and gi and id re finding afebrile still has abdominal pain Subjective Gastrointestinal/Abdominal: Reports: abdominal pain Allergies: Coded Allergies: No Known Allergies (Unverified , 07/26/16) Objective Last 24 Hour Vital Signs Date Time Temp Pulse Resp B/P Pulse Ox O2 Delivery O2 Flow Rate FiO2 08/02/16 09:06 86 140/87 08/02/16 09:05 86 140/87 08/02/16 08:00 98.2 86 20 140/87 98 Room Air 08/02/16 05:07 98.2 08/02/16 04:00 97.7 83 21 152/93 97 Room Air 08/02/16 00:00 98.2 77 21 144/89 95 Room Air 08/01/16 21:27 98.2 08/01/16 20:55 73 149/105 08/01/16 20:38 98.2 73 19 149/105 98 Room Air 08/01/16 18:48 94 164/100 08/01/16 17:30 91 148/98 08/01/16 16:27 97.9 94 20 164/100 98 08/01/16 12:00 97.7 95 22 145/93 97 Room Air Intake and Output 08/01/16 08/02/16 19:00 07:00 Intake Total 240 ml 390 ml Output Total 440 ml 810 ml Balance -200 ml -420 ml Intake Oral 240 ml 240 ml IV Total 150 ml Output Urine Total 200 ml 580 ml Drainage Total 240 ml 230 ml # Voids 2 4 # Bowel Movements 1 Laboratory Tests 08/02/16 05:40: White Blood Count 17.4H, Red Blood Count 3.08L, Hemoglobin 9.3L, Hematocrit 27.6L, Mean Corpuscular Volume 90, Mean Corpuscular Hemoglobin 30.4, Mean Corpuscular Hemoglobin Concent 33.8, Red Cell Distribution Width 12.2, Platelet Count 241, Mean Platelet Volume 7.8, Neutrophils (%) (Auto) 84.5H, Lymphocytes ( %) (Auto) 3.2L, Monocytes (%) (Auto) 8.9, Eosinophils (%) (Auto) 3.0, Basophils (%) (Auto) 0.5, Sodium Level 138, Potassium Level 3.6, Chloride Level 100, Carbon Dioxide Level 20, Anion Gap 18H, Blood Urea Nitrogen 46H, Creatinine 3.6H , Estimat Glomerular Filtration Rate 17.1, Glucose Level 155H, Uric Acid 6.0, Calcium Level 8.1L, Phosphorus Level 3.6, Magnesium Level 1.9, Total Bilirubin 1.0, Gamma Glutamyl Transpeptidase 368H, Aspartate Amino Transf (AST/SGOT) 62H, Alanine Aminotransferase (ALT/SGPT) 90H, Alkaline Phosphatase 322H, C-Reactive Protein, Quantitative 16.1H, Pro-B-Type Natriuretic Peptide 1161H, Total Protein 5.7L, Albumin 2.7L, Globulin 3.0, Albumin/Globulin Ratio 0.9L Height (Feet): 5 Height (Inches): 6.00 Weight (Pounds): 162 Abdomen: tender Teo Love MD Aug 02, 2016 11:38
[2016-08-02] MEDS: D5NS 1,000 ML IV SCH (13:00)
--- NOTE | 2016-08-02 14:58 | General Progress Note ---
Assessment/Plan Status: stable, unchanged - from renal stand Status Narrative today Cr 3.6 Assessment/Plan status: Septic Shock leading to acute renal failure- Cr leveling and lowering Abdominal Surgery 07/26/16 then again 05/27 Plan; Sandhu out post op care- Resume IV Fluids Antibiotics- Protonix IV monitor renal parameters- Subjective ROS Limited/Unobtainable: No Constitutional: Reports: malaise, weakness Gastrointestinal/Abdominal: Reports: abdomen distended, abdominal pain Allergies: Coded Allergies: No Known Allergies (Unverified , 07/26/16) Objective Last 24 Hour Vital Signs Date Time Temp Pulse Resp B/P Pulse Ox O2 Delivery O2 Flow Rate FiO2 08/02/16 12:00 98.1 67 20 137/91 98 Room Air 08/02/16 09:06 86 140/87 08/02/16 09:05 86 140/87 08/02/16 08:00 98.2 86 20 140/87 98 Room Air 08/02/16 05:07 98.2 08/02/16 04:00 97.7 83 21 152/93 97 Room Air 08/02/16 00:00 98.2 77 21 144/89 95 Room Air 08/01/16 21:27 98.2 08/01/16 20:55 73 149/105 08/01/16 20:38 98.2 73 19 149/105 98 Room Air 08/01/16 18:48 94 164/100 08/01/16 17:30 91 148/98 08/01/16 16:27 97.9 94 20 164/100 98 Intake and Output 08/01/16 08/02/16 19:00 07:00 Intake Total 240 ml 390 ml Output Total 440 ml 810 ml Balance -200 ml -420 ml Intake Oral 240 ml 240 ml IV Total 150 ml Output Urine Total 200 ml 580 ml Drainage Total 240 ml 230 ml # Voids 2 4 # Bowel Movements 1 Laboratory Tests 08/02/16 05:40: White Blood Count 17.4H, Red Blood Count 3.08L, Hemoglobin 9.3L, Hematocrit 27.6L, Mean Corpuscular Volume 90, Mean Corpuscular Hemoglobin 30.4, Mean Corpuscular Hemoglobin Concent 33.8, Red Cell Distribution Width 12.2, Platelet Count 241, Mean Platelet Volume 7.8, Neutrophils (%) (Auto) 84.5H, Lymphocytes ( %) (Auto) 3.2L, Monocytes (%) (Auto) 8.9, Eosinophils (%) (Auto) 3.0, Basophils (%) (Auto) 0.5, Sodium Level 138, Potassium Level 3.6, Chloride Level 100, Carbon Dioxide Level 20, Anion Gap 18H, Blood Urea Nitrogen 46H, Creatinine 3.6H , Estimat Glomerular Filtration Rate 17.1, Glucose Level 155H, Uric Acid 6.0, Calcium Level 8.1L, Phosphorus Level 3.6, Magnesium Level 1.9, Total Bilirubin 1.0, Gamma Glutamyl Transpeptidase 368H, Aspartate Amino Transf (AST/SGOT) 62H, Alanine Aminotransferase (ALT/SGPT) 90H, Alkaline Phosphatase 322H, C-Reactive Protein, Quantitative 16.1H, Pro-B-Type Natriuretic Peptide 1161H, Total Protein 5.7L, Albumin 2.7L, Globulin 3.0, Albumin/Globulin Ratio 0.9L Height (Feet): 5 Height (Inches): 6.00 Weight (Pounds): 162 General Appearance: mild distress Respiratory/Chest: decreased breath sounds Abdomen: distended Genitourinary/Rectal: other - sandhu out Objective no other changes in PE REBECCA SCHULTE Aug 02, 2016 14:58
--- NOTE | 2016-08-02 15:28 | Cardiac Electrophysiology PN ---
Assessment/Plan Assessment/Plan 1. NSTEMI with elevated troponin due to demand ischemia vs renal failure. ECG non ischemic. Troponin 0.33. Echo NL EF.Continue Lopressor 25 bid. 2. S/P Septic shock due to small bowel obstruction and gangrene. Off pressors.On iv fluid and antibiotics.WBC still 17K 3. HTN. Continue Lopressor 25 bid.Avoid ACEI or ARB for renal failure 4. Small bowel obstruction status post laparotomy and small bowel resection. Follow up Dr Murrieta. 5. Respiratory failure . Extubated 6. Renal failure, creatinine 4.4. Today 3.6. follow up with Dr. Rai. DW family and RN Subjective Subjective Feeling better.Has been going to bathroom today. RN and family at bedside. Abdominal drain still in place. Objective Last 24 Hour Vital Signs Date Time Temp Pulse Resp B/P Pulse Ox O2 Delivery O2 Flow Rate FiO2 08/02/16 12:00 98.1 67 20 137/91 98 Room Air 08/02/16 09:06 86 140/87 08/02/16 09:05 86 140/87 08/02/16 08:00 98.2 86 20 140/87 98 Room Air 08/02/16 05:07 98.2 08/02/16 04:00 97.7 83 21 152/93 97 Room Air 08/02/16 00:00 98.2 77 21 144/89 95 Room Air 08/01/16 21:27 98.2 08/01/16 20:55 73 149/105 08/01/16 20:38 98.2 73 19 149/105 98 Room Air 08/01/16 18:48 94 164/100 08/01/16 17:30 91 148/98 08/01/16 16:27 97.9 94 20 164/100 98 Intake and Output 08/01/16 08/02/16 19:00 07:00 Intake Total 240 ml 390 ml Output Total 440 ml 810 ml Balance -200 ml -420 ml Intake Oral 240 ml 240 ml IV Total 150 ml Output Urine Total 200 ml 580 ml Drainage Total 240 ml 230 ml # Voids 2 4 # Bowel Movements 1 Laboratory Tests Test 08/02/16 05:40 White Blood Count 17.4 K/UL (4.8-10.8) H Red Blood Count 3.08 M/UL (4.70-6.10) L Hemoglobin 9.3 G/DL (14.2-18.0) L Hematocrit 27.6 % (42.0-52.0) L Mean Corpuscular Volume 90 FL (80-99) Mean Corpuscular Hemoglobin 30.4 PG (27.0-31.0) Mean Corpuscular Hemoglobin Concent 33.8 G/DL (32.0-36.0) Red Cell Distribution Width 12.2 % (11.6-14.8) Platelet Count 241 K/UL (150-450) Mean Platelet Volume 7.8 FL (6.5-10.1) Neutrophils (%) (Auto) 84.5 % (45.0-75.0) H Lymphocytes (%) (Auto) 3.2 % (20.0-45.0) L Monocytes (%) (Auto) 8.9 % (1.0-10.0) Eosinophils (%) (Auto) 3.0 % (0.0-3.0) Basophils (%) (Auto) 0.5 % (0.0-2.0) Sodium Level 138 mEQ/L (135-145) Potassium Level 3.6 mEQ/L (3.4-4.9) Chloride Level 100 mEQ/L (98-107) Carbon Dioxide Level 20 mEQ/L (20-30) Anion Gap 18 (5-15) H Blood Urea Nitrogen 46 mg/dL (7-23) H Creatinine 3.6 mg/dL (0.7-1.2) H Estimat Glomerular Filtration Rate 17.1 mL/min (>60) Glucose Level 155 mg/dL (74-106) H Uric Acid 6.0 mg/dL (3.0-7.5) Calcium Level 8.1 mg/dL (8.6-10.2) L Phosphorus Level 3.6 mg/dL (2.5-4.8) Magnesium Level 1.9 mg/dL (1.7-2.5) Total Bilirubin 1.0 mg/dL (0.0-1.2) Gamma Glutamyl Transpeptidase 368 U/L (8-61) H Aspartate Amino Transf (AST/SGOT) 62 U/L (5-40) H Alanine Aminotransferase (ALT/SGPT) 90 U/L (3-41) H Alkaline Phosphatase 322 U/L (40-129) H C-Reactive Protein, Quantitative 16.1 mg/dL (< 0.5) H Pro-B-Type Natriuretic Peptide 1161 pg/mL (0-125) H Total Protein 5.7 g/dL (6.6-8.7) L Albumin 2.7 g/dL (3.5-5.2) L Globulin 3.0 g/dL Albumin/Globulin Ratio 0.9 (1.0-2.7) L Microbiology Date/Time Source Procedure Growth Status 08/01/16 18:00 Stool Clostridium difficile Toxin Assay - Final Complete Objective HEAD AND NECK: No JVD. LUNGS: Clear CARDIOVASCULAR: Nl S1 and S2 with no gallop or murmur. ABDOMEN: Post median laparotomy.DAKOTA drain still draining. EXTREMITIES: No pitting edema. HONEY DUKE Aug 02, 2016 15:28
--- NOTE | 2016-08-02 16:21 | Pulmonology Progress Note ---
Assessment/Plan Problems: (1) SBO (small bowel obstruction) (2) MIGNON (acute kidney injury) (3) Ileus (4) Enteritis (5) Non-ST elevation (NSTEMI) myocardial infarction Assessment/Plan CT of abdomein pending continue antibiotics check electrolytes advance diet wbc stays high pathology report reviewed. ischemic colitis Subjective Interval Events: still has some abdominal pain Allergies: Coded Allergies: No Known Allergies (Unverified , 07/26/16) Objective Last 24 Hour Vital Signs Date Time Temp Pulse Resp B/P Pulse Ox O2 Delivery O2 Flow Rate FiO2 08/02/16 16:13 97.7 76 18 123/73 99 Room Air 08/02/16 12:00 98.1 67 20 137/91 98 Room Air 08/02/16 09:06 86 140/87 08/02/16 09:05 86 140/87 08/02/16 08:00 98.2 86 20 140/87 98 Room Air 08/02/16 05:07 98.2 08/02/16 04:00 97.7 83 21 152/93 97 Room Air 08/02/16 00:00 98.2 77 21 144/89 95 Room Air 08/01/16 21:27 98.2 08/01/16 20:55 73 149/105 08/01/16 20:38 98.2 73 19 149/105 98 Room Air 08/01/16 18:48 94 164/100 08/01/16 17:30 91 148/98 08/01/16 16:27 97.9 94 20 164/100 98 Intake and Output 08/01/16 08/02/16 19:00 07:00 Intake Total 240 ml 390 ml Output Total 440 ml 810 ml Balance -200 ml -420 ml Intake Oral 240 ml 240 ml IV Total 150 ml Output Urine Total 200 ml 580 ml Drainage Total 240 ml 230 ml # Voids 2 4 # Bowel Movements 1 General Appearance: WD/WN HEENT: normocephalic, atraumatic Respiratory/Chest: chest wall non-tender, lungs clear Cardiovascular: normal peripheral pulses, normal rate Abdomen: normal bowel sounds, soft, non tender 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 Microbiology Date/Time Source Procedure Growth Status 08/01/16 18:00 Stool Clostridium difficile Toxin Assay - Final Complete Laboratory Tests 08/02/16 05:40: White Blood Count 17.4H, Red Blood Count 3.08L, Hemoglobin 9.3L, Hematocrit 27.6L, Mean Corpuscular Volume 90, Mean Corpuscular Hemoglobin 30.4, Mean Corpuscular Hemoglobin Concent 33.8, Red Cell Distribution Width 12.2, Platelet Count 241, Mean Platelet Volume 7.8, Neutrophils (%) (Auto) 84.5H, Lymphocytes ( %) (Auto) 3.2L, Monocytes (%) (Auto) 8.9, Eosinophils (%) (Auto) 3.0, Basophils (%) (Auto) 0.5, Sodium Level 138, Potassium Level 3.6, Chloride Level 100, Carbon Dioxide Level 20, Anion Gap 18H, Blood Urea Nitrogen 46H, Creatinine 3.6H , Estimat Glomerular Filtration Rate 17.1, Glucose Level 155H, Uric Acid 6.0, Calcium Level 8.1L, Phosphorus Level 3.6, Magnesium Level 1.9, Total Bilirubin 1.0, Gamma Glutamyl Transpeptidase 368H, Aspartate Amino Transf (AST/SGOT) 62H, Alanine Aminotransferase (ALT/SGPT) 90H, Alkaline Phosphatase 322H, C-Reactive Protein, Quantitative 16.1H, Pro-B-Type Natriuretic Peptide 1161H, Total Protein 5.7L, Albumin 2.7L, Globulin 3.0, Albumin/Globulin Ratio 0.9L Current Medications Medications (Trade) Dose Ordered Sig/Arti Route PRN Reason Start Time Stop Time Status Last Admin Dose Admin Acetaminophen (Tylenol) 650 mg Q4H PRN ORAL Mild Pain/Temp > 100.5 08/01/16 16:15 08/31/16 16:14 Amlodipine Besylate (Norvasc) 5 mg Q12HR ORAL 08/01/16 21:00 08/31/16 20:59 08/02/16 09:05 Clindamycin HCl/ Dextrose 50 ml @ 100 mls/hr Q8HR@0400,1200,2000 IV 08/01/16 12:00 08/08/16 11:59 08/02/16 13:00 Dextrose/Sodium Chloride (D5ns) 1,000 ml @ 100 mls/hr Q10H IV 08/02/16 12:45 09/01/16 12:44 08/02/16 13:00 Enoxaparin Sodium (Lovenox) 30 mg DAILY SUBQ 08/01/16 09:00 08/31/16 08:59 08/02/16 09:09 Hydromorphone HCl (Dilaudid) 0.5 mg Q3H PRN IVP Pain Score 1-3 08/01/16 04:45 08/08/16 04:44 Hydromorphone HCl (Dilaudid) 1 mg Q3H PRN IVP pain score 4-6 08/01/16 04:45 08/08/16 04:44 08/02/16 04:37 Hydromorphone HCl (Dilaudid) 2 mg Q3H PRN IVP pain score 7-10 08/01/16 04:45 08/08/16 04:44 08/01/16 20:57 Metoprolol Tartrate 25 mg 25 mg Q12HR ORAL 08/01/16 18:00 08/31/16 17:59 08/02/16 09:06 Pantoprazole (Protonix) 40 mg DAILY ORAL 08/02/16 09:00 09/01/16 08:59 08/02/16 09:06 Piperacillin Sod/ Tazobactam Sod/ Dextrose (Zosyn/D5W 100ml) 110 ml @ 27.5 mls/hr Q12HR@0600,1800 IVPB 08/01/16 06:00 08/08/16 05:59 08/02/16 05:22 Simethicone (Mylicon) 80 mg QIDPRN PRN NG GAS PAIN 08/01/16 08:00 08/31/16 07:59 08/02/16 09:05 Tamsulosin HCl (Flomax) 0.4 mg BEDTIME ORAL 08/02/16 21:00 09/01/16 20:59 MAIKEL ESPINOSA Aug 02, 2016 16:20
--- NOTE | 2016-08-02 17:03 | Infectious Diseases Prog Note ---
Assessment/Plan Problems: (1) Septic shock Assessment & Plan: had persistent leukocytosis today while on zosyn and clindamycin, will switch clindamycin to zyvox for VRE coverage, and continue zosyn, repeated blood culture is pending, stool for C diff is negative , abdominal fluids culture showed no growth. recommend CT ABD/PELVIS to rule out abscess or anastomosis leak (2) SBO (small bowel obstruction) Assessment & Plan: S/P EX LAP , has ileus post OP, now with persistant abdominal pain, due to possible anastomosis leak, continue IVF, and pain management , general surgery is following (3) Abdominal pain Assessment & Plan: continue pain management, surgery is following (4) MIGNON (acute kidney injury) Assessment & Plan: due to sepsis and hypotension, continue IVF, titrate to keep SBP >100, renal is following (5) Ileus Assessment & Plan: due to EX LAP, improved, had multiple bowel movements, tolerated diet well Subjective Constitutional: Reports: anorexia Gastrointestinal/Abdominal: Reports: bloating, blood in stool, diarrhea, other - abdominal pain Allergies: Coded Allergies: No Known Allergies (Unverified , 07/26/16) All Systems: reviewed and negative except above Subjective he had bowel movement today bloody, no fever or chills, no cough or SOB, has more abdominal pain today , tolerated liquid diet Objective Vital Signs Last 24 Hour Vital Signs Date Time Temp Pulse Resp B/P Pulse Ox O2 Delivery O2 Flow Rate FiO2 08/02/16 16:13 97.7 76 18 123/73 99 Room Air 08/02/16 12:00 98.1 67 20 137/91 98 Room Air 08/02/16 09:06 86 140/87 08/02/16 09:05 86 140/87 08/02/16 08:00 98.2 86 20 140/87 98 Room Air 08/02/16 05:07 98.2 08/02/16 04:00 97.7 83 21 152/93 97 Room Air 08/02/16 00:00 98.2 77 21 144/89 95 Room Air 08/01/16 21:27 98.2 08/01/16 20:55 73 149/105 08/01/16 20:38 98.2 73 19 149/105 98 Room Air 08/01/16 18:48 94 164/100 08/01/16 17:30 91 148/98 Height (Feet): 5 Height (Inches): 6.00 Weight (Pounds): 162 General Appearance: WD/WN, no acute distress HEENT: normocephalic, atraumatic, anicteric, mucous membranes moist, PERRL, supple, no JVD Respiratory/Chest: chest wall non-tender, lungs clear, normal breath sounds, no respiratory distress, no accessory muscle use Cardiovascular: normal peripheral pulses, normal rate, regular rhythm, no gallop/murmur Abdomen: no organomegaly, no mass, hypoactive bowel sounds, distended, tender Extremities: no cyanosis, no clubbing Skin: no rash, no lesions, no ulcers Microbiology Date/Time Source Procedure Growth Status 08/01/16 18:00 Stool Clostridium difficile Toxin Assay - Final Complete Laboratory Tests Test 08/02/16 05:40 White Blood Count 17.4 K/UL (4.8-10.8) H Red Blood Count 3.08 M/UL (4.70-6.10) L Hemoglobin 9.3 G/DL (14.2-18.0) L Hematocrit 27.6 % (42.0-52.0) L Mean Corpuscular Volume 90 FL (80-99) Mean Corpuscular Hemoglobin 30.4 PG (27.0-31.0) Mean Corpuscular Hemoglobin Concent 33.8 G/DL (32.0-36.0) Red Cell Distribution Width 12.2 % (11.6-14.8) Platelet Count 241 K/UL (150-450) Mean Platelet Volume 7.8 FL (6.5-10.1) Neutrophils (%) (Auto) 84.5 % (45.0-75.0) H Lymphocytes (%) (Auto) 3.2 % (20.0-45.0) L Monocytes (%) (Auto) 8.9 % (1.0-10.0) Eosinophils (%) (Auto) 3.0 % (0.0-3.0) Basophils (%) (Auto) 0.5 % (0.0-2.0) Sodium Level 138 mEQ/L (135-145) Potassium Level 3.6 mEQ/L (3.4-4.9) Chloride Level 100 mEQ/L (98-107) Carbon Dioxide Level 20 mEQ/L (20-30) Anion Gap 18 (5-15) H Blood Urea Nitrogen 46 mg/dL (7-23) H Creatinine 3.6 mg/dL (0.7-1.2) H Estimat Glomerular Filtration Rate 17.1 mL/min (>60) Glucose Level 155 mg/dL (74-106) H Uric Acid 6.0 mg/dL (3.0-7.5) Calcium Level 8.1 mg/dL (8.6-10.2) L Phosphorus Level 3.6 mg/dL (2.5-4.8) Magnesium Level 1.9 mg/dL (1.7-2.5) Total Bilirubin 1.0 mg/dL (0.0-1.2) Gamma Glutamyl Transpeptidase 368 U/L (8-61) H Aspartate Amino Transf (AST/SGOT) 62 U/L (5-40) H Alanine Aminotransferase (ALT/SGPT) 90 U/L (3-41) H Alkaline Phosphatase 322 U/L (40-129) H C-Reactive Protein, Quantitative 16.1 mg/dL (< 0.5) H Pro-B-Type Natriuretic Peptide 1161 pg/mL (0-125) H Total Protein 5.7 g/dL (6.6-8.7) L Albumin 2.7 g/dL (3.5-5.2) L Globulin 3.0 g/dL Albumin/Globulin Ratio 0.9 (1.0-2.7) L Current Medications Medications (Trade) Dose Ordered Sig/Arti Route PRN Reason Start Time Stop Time Status Last Admin Dose Admin Acetaminophen (Tylenol) 650 mg Q4H PRN ORAL Mild Pain/Temp > 100.5 08/01/16 16:15 08/31/16 16:14 Amlodipine Besylate (Norvasc) 5 mg Q12HR ORAL 08/01/16 21:00 08/31/16 20:59 08/02/16 09:05 Clindamycin HCl/ Dextrose 50 ml @ 100 mls/hr Q8HR@0400,1200,2000 IV 08/01/16 12:00 08/08/16 11:59 08/02/16 13:00 Dextrose/Sodium Chloride (D5ns) 1,000 ml @ 100 mls/hr Q10H IV 08/02/16 12:45 09/01/16 12:44 08/02/16 13:00 Enoxaparin Sodium (Lovenox) 30 mg DAILY SUBQ 08/01/16 09:00 08/31/16 08:59 08/02/16 09:09 Hydromorphone HCl (Dilaudid) 0.5 mg Q3H PRN IVP Pain Score 1-3 08/01/16 04:45 08/08/16 04:44 Hydromorphone HCl (Dilaudid) 1 mg Q3H PRN IVP pain score 4-6 08/01/16 04:45 08/08/16 04:44 08/02/16 04:37 Hydromorphone HCl (Dilaudid) 2 mg Q3H PRN IVP pain score 7-10 08/01/16 04:45 08/08/16 04:44 08/01/16 20:57 Metoprolol Tartrate 25 mg 25 mg Q12HR ORAL 08/01/16 18:00 08/31/16 17:59 08/02/16 09:06 Pantoprazole (Protonix) 40 mg DAILY ORAL 08/02/16 09:00 09/01/16 08:59 08/02/16 09:06 Piperacillin Sod/ Tazobactam Sod/ Dextrose (Zosyn/D5W 100ml) 110 ml @ 27.5 mls/hr Q12HR@0600,1800 IVPB 08/01/16 06:00 08/08/16 05:59 08/02/16 05:22 Simethicone (Mylicon) 80 mg QIDPRN PRN NG GAS PAIN 08/01/16 08:00 08/31/16 07:59 08/02/16 09:05 Tamsulosin HCl (Flomax) 0.4 mg BEDTIME ORAL 08/02/16 21:00 09/01/16 20:59 Piyush Harris M.D. Aug 02, 2016 17:03
--- NOTE | 2016-08-02 18:35 | General Surgery Progress Note ---
General Surgery-Progress Note Subjective Procedure Performed Exploratory Laparotomy small bowel resection Symptoms: BM Objective Last 24 Hour Vital Signs Date Time Temp Pulse Resp B/P Pulse Ox O2 Delivery O2 Flow Rate FiO2 08/02/16 16:13 97.7 76 18 123/73 99 Room Air 08/02/16 12:00 98.1 67 20 137/91 98 Room Air 08/02/16 09:06 86 140/87 08/02/16 09:05 86 140/87 08/02/16 08:00 98.2 86 20 140/87 98 Room Air 08/02/16 05:07 98.2 08/02/16 04:00 97.7 83 21 152/93 97 Room Air 08/02/16 00:00 98.2 77 21 144/89 95 Room Air 08/01/16 21:27 98.2 08/01/16 20:55 73 149/105 08/01/16 20:38 98.2 73 19 149/105 98 Room Air 08/01/16 18:48 94 164/100 I&O Intake and Output 08/01/16 08/02/16 19:00 07:00 Intake Total 240 ml 390 ml Output Total 440 ml 810 ml Balance -200 ml -420 ml Intake Oral 240 ml 240 ml IV Total 150 ml Output Urine Total 200 ml 580 ml Drainage Total 240 ml 230 ml # Voids 2 4 # Bowel Movements 1 Wound: clean, intact Drains: curtis Respiratory: clear Abdomen: soft, distended, present bowel sounds Extremities: edema Laboratory Tests Test 08/02/16 05:40 White Blood Count 17.4 K/UL (4.8-10.8) H Red Blood Count 3.08 M/UL (4.70-6.10) L Hemoglobin 9.3 G/DL (14.2-18.0) L Hematocrit 27.6 % (42.0-52.0) L Mean Corpuscular Volume 90 FL (80-99) Mean Corpuscular Hemoglobin 30.4 PG (27.0-31.0) Mean Corpuscular Hemoglobin Concent 33.8 G/DL (32.0-36.0) Red Cell Distribution Width 12.2 % (11.6-14.8) Platelet Count 241 K/UL (150-450) Mean Platelet Volume 7.8 FL (6.5-10.1) Neutrophils (%) (Auto) 84.5 % (45.0-75.0) H Lymphocytes (%) (Auto) 3.2 % (20.0-45.0) L Monocytes (%) (Auto) 8.9 % (1.0-10.0) Eosinophils (%) (Auto) 3.0 % (0.0-3.0) Basophils (%) (Auto) 0.5 % (0.0-2.0) Sodium Level 138 mEQ/L (135-145) Potassium Level 3.6 mEQ/L (3.4-4.9) Chloride Level 100 mEQ/L (98-107) Carbon Dioxide Level 20 mEQ/L (20-30) Anion Gap 18 (5-15) H Blood Urea Nitrogen 46 mg/dL (7-23) H Creatinine 3.6 mg/dL (0.7-1.2) H Estimat Glomerular Filtration Rate 17.1 mL/min (>60) Glucose Level 155 mg/dL (74-106) H Uric Acid 6.0 mg/dL (3.0-7.5) Calcium Level 8.1 mg/dL (8.6-10.2) L Phosphorus Level 3.6 mg/dL (2.5-4.8) Magnesium Level 1.9 mg/dL (1.7-2.5) Total Bilirubin 1.0 mg/dL (0.0-1.2) Gamma Glutamyl Transpeptidase 368 U/L (8-61) H Aspartate Amino Transf (AST/SGOT) 62 U/L (5-40) H Alanine Aminotransferase (ALT/SGPT) 90 U/L (3-41) H Alkaline Phosphatase 322 U/L (40-129) H C-Reactive Protein, Quantitative 16.1 mg/dL (< 0.5) H Pro-B-Type Natriuretic Peptide 1161 pg/mL (0-125) H Total Protein 5.7 g/dL (6.6-8.7) L Albumin 2.7 g/dL (3.5-5.2) L Globulin 3.0 g/dL Albumin/Globulin Ratio 0.9 (1.0-2.7) L Assessment Post-op Diagnosis Gangrene of small bowel Plan Additional Comments CAT scan of abdomen this Pm showed anastomosis leakage.Considering that previously he had necrosis of bowel I feel it is risky to allow spotaneous closure. He is scheduled for emergency EX LAP tonight. EDWIN NOGUEIRA Aug 02, 2016 18:35
--- NOTE | 2016-08-02 18:37 | Pre-Procedure Note/Attestation ---
Pre-Procedure Note/Attestation Complete Prior to Procedure Planned Procedure: not applicable Procedure Narrative: Exploratory Laparotomy possible bowel resection Indications for Procedure Pre-Operative Diagnosis: Anastomotic leakage Attestation I attest that I discussed the nature of the procedure; its benefits; risks and complications; and alternatives (and the risks and benefits of such alternatives ), prior to the procedure, with the patient (or the patient's legal solar manufacturer's representative). I attest that, if there was a reasonable possibility of needing a blood transfusion, the patient (or the patient's legal solar manufacturer's representative) was given the [facility] standardized written summary, pursuant to the [place] Blood Safety Act ([place] Health and Safety Code # 1645, as amended). I attest that I re-evaluated the patient just prior to the surgery and that there has been no change in the patient's H&P, except as documented below: EDWIN NOGUEIRA Aug 02, 2016 18:37
[2016-08-02] MEDS ORDERED: LR 1000ml ONE (20:00)
[2016-08-02] MEDS ORDERED: NS Irrig 1000ml ONE (20:00)
[2016-08-02] MEDS ORDERED: Propofol 10mg/ml 20ml IV ONE (20:00)
[2016-08-02] MEDS ORDERED: Glycopyrrolate 0.2mg/ml 1ml Vial ONE (20:00)
[2016-08-02] MEDS ORDERED: Zemuron 50mg/5ml Inj IV ONE (20:00)
[2016-08-02] MEDS ORDERED: Sterile Water Irrig 1000ml IRRIG ONE (20:00)
[2016-08-02] MEDS ORDERED: Midazolam 2mg/2ml Inj ONE ×2 (20:00→23:19)
[2016-08-02] MEDS ORDERED: fentaNYL 250mcg/5ml ONE (20:00)
[2016-08-02] MEDS ORDERED: Neostigmine 1mg/ml 10ml Inj ONE (20:00)
--- NOTE | 2016-08-02 20:16 | Anethesia Preoperative Eval ---
Anesthesia Pre-op PMH/ROS General Date of Evaluation: Aug 02, 2016 Time of Evaluation: 20:10 Anesthesiologist: Duane ASA Score: ASA 3 Mallampati Score Class I : Soft palate, uvula, fauces, pillars visible Class II: Soft palate, uvula, fauces visible Class III: Soft palate, base of uvula visible Class IV: Only hard plate visible Mallampati Classification: Class III Surgeon: Lit Diagnosis: Sepsis Bowel obstruction Surgical Procedure: Exploratory laparotomy Anesthesia History: none Family History: no anesthesia problems Allergies: Coded Allergies: No Known Allergies (Unverified , 07/26/16) Past Medical History Cardiovascular: Reports: HTN, Denies: CAD, MS, arrhythmia, other, valve dz Pulmonary: Denies: COPD, SOFIYA, asthma, other Gastrointestinal/Genitourinary: Reports: CRI, GERD, Denies: ESRD, other 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: Reports: depression/anxiety, Denies: CVA, TIA, dementia, other Endocrine: Denies: DM, hypothyroidism, other, steroids HEENT: Denies: PILOT STATION (L), PILOT STATION (R), cataract (L), cataract (R), glaucoma, other Hematology/Immune: Reports: anemia, Denies: DVT, bleeding disorder, other Musculoskeletal/Integumentary: Denies: DDD, DJD, OA, RA, edema, other PMH Narrative: see chart , recently reassessed CT scan showed anastomosis leakage PSxH Narrative: see chart Anesthesia Pre-op Phys. Exam Physician Exam Last Vital Signs Date Time Temp Pulse Resp B/P Pulse Ox O2 Delivery O2 Flow Rate FiO2 08/02/16 16:13 97.7 76 18 123/73 99 Room Air 07/31/16 04:00 2.0 07/30/16 07:51 32 Constitutional: NAD Neurologic: CN 2-12 intact Cardiovascular: RRR, no M/R/G Respiratory: CTA Gastrointestinal: other - midline suture line Airway Exam Mallampati Score: Class II MO: limited Neck: stiff ROM: limited Teeth: missing Dentures: no lower, no upper Anesthesia Pre-op A/P Labs Hematology Test 08/02/16 05:40 White Blood Count 17.4 K/UL (4.8-10.8) H Red Blood Count 3.08 M/UL (4.70-6.10) L Hemoglobin 9.3 G/DL (14.2-18.0) L Hematocrit 27.6 % (42.0-52.0) L Mean Corpuscular Volume 90 FL (80-99) Mean Corpuscular Hemoglobin 30.4 PG (27.0-31.0) Mean Corpuscular Hemoglobin Concent 33.8 G/DL (32.0-36.0) Red Cell Distribution Width 12.2 % (11.6-14.8) Platelet Count 241 K/UL (150-450) Mean Platelet Volume 7.8 FL (6.5-10.1) Neutrophils (%) (Auto) 84.5 % (45.0-75.0) H Lymphocytes (%) (Auto) 3.2 % (20.0-45.0) L Monocytes (%) (Auto) 8.9 % (1.0-10.0) Eosinophils (%) (Auto) 3.0 % (0.0-3.0) Basophils (%) (Auto) 0.5 % (0.0-2.0) Chemistry Test 08/02/16 05:40 Sodium Level 138 mEQ/L (135-145) Potassium Level 3.6 mEQ/L (3.4-4.9) Chloride Level 100 mEQ/L (98-107) Carbon Dioxide Level 20 mEQ/L (20-30) Anion Gap 18 (5-15) H Blood Urea Nitrogen 46 mg/dL (7-23) H Creatinine 3.6 mg/dL (0.7-1.2) H Estimat Glomerular Filtration Rate 17.1 mL/min (>60) Glucose Level 155 mg/dL (74-106) H Uric Acid 6.0 mg/dL (3.0-7.5) Calcium Level 8.1 mg/dL (8.6-10.2) L Phosphorus Level 3.6 mg/dL (2.5-4.8) Magnesium Level 1.9 mg/dL (1.7-2.5) Total Bilirubin 1.0 mg/dL (0.0-1.2) Gamma Glutamyl Transpeptidase 368 U/L (8-61) H Aspartate Amino Transf (AST/SGOT) 62 U/L (5-40) H Alanine Aminotransferase (ALT/SGPT) 90 U/L (3-41) H Alkaline Phosphatase 322 U/L (40-129) H C-Reactive Protein, Quantitative 16.1 mg/dL (< 0.5) H Pro-B-Type Natriuretic Peptide 1161 pg/mL (0-125) H Total Protein 5.7 g/dL (6.6-8.7) L Albumin 2.7 g/dL (3.5-5.2) L Globulin 3.0 g/dL Albumin/Globulin Ratio 0.9 (1.0-2.7) L Risk Assessment & Plan Assessment: ASA 3 Plan: GA with ETT Status Change Before Surgery: No Pre-Antibiotics Drug: as scheduled AMY GOLDMAN M.D. Aug 02, 2016 20:16
--- NOTE | 2016-08-02 20:19 | General Progress Note ---
Assessment/Plan Assessment/Plan Assessment - SBO / gangrene - resected - septic shock - recovered - ATN - improved - abnormal LFT - ? shocked liver - resolving - lactic acidosis - improved - s/p ex lap - Leuokocytosis and CT evidence of possible anastomotic leak Recommendations IVF NPO abx PPI follow labs and exam surgical re-intervention per Dr. Murrieta Subjective Allergies: Coded Allergies: No Known Allergies (Unverified , 07/26/16) Subjective patient seen earlier today c/o abdominal discomfort tolerated po solids (+) BM but persistent leukocytosis noted State CT ordered D/w radiology and surgeon re results anastomotic leak suspected pt made NPO Objective Last 24 Hour Vital Signs Date Time Temp Pulse Resp B/P Pulse Ox O2 Delivery O2 Flow Rate FiO2 08/02/16 16:13 97.7 76 18 123/73 99 Room Air 08/02/16 12:00 98.1 67 20 137/91 98 Room Air 08/02/16 09:06 86 140/87 08/02/16 09:05 86 140/87 08/02/16 08:00 98.2 86 20 140/87 98 Room Air 08/02/16 05:07 98.2 08/02/16 04:00 97.7 83 21 152/93 97 Room Air 08/02/16 00:00 98.2 77 21 144/89 95 Room Air 08/01/16 21:27 98.2 08/01/16 20:55 73 149/105 08/01/16 20:38 98.2 73 19 149/105 98 Room Air Intake and Output 08/01/16 08/02/16 19:00 07:00 Intake Total 240 ml 390 ml Output Total 440 ml 810 ml Balance -200 ml -420 ml Intake Oral 240 ml 240 ml IV Total 150 ml Output Urine Total 200 ml 580 ml Drainage Total 240 ml 230 ml # Voids 2 4 # Bowel Movements 1 Laboratory Tests 08/02/16 05:40: White Blood Count 17.4H, Red Blood Count 3.08L, Hemoglobin 9.3L, Hematocrit 27.6L, Mean Corpuscular Volume 90, Mean Corpuscular Hemoglobin 30.4, Mean Corpuscular Hemoglobin Concent 33.8, Red Cell Distribution Width 12.2, Platelet Count 241, Mean Platelet Volume 7.8, Neutrophils (%) (Auto) 84.5H, Lymphocytes ( %) (Auto) 3.2L, Monocytes (%) (Auto) 8.9, Eosinophils (%) (Auto) 3.0, Basophils (%) (Auto) 0.5, Sodium Level 138, Potassium Level 3.6, Chloride Level 100, Carbon Dioxide Level 20, Anion Gap 18H, Blood Urea Nitrogen 46H, Creatinine 3.6H , Estimat Glomerular Filtration Rate 17.1, Glucose Level 155H, Uric Acid 6.0, Calcium Level 8.1L, Phosphorus Level 3.6, Magnesium Level 1.9, Total Bilirubin 1.0, Gamma Glutamyl Transpeptidase 368H, Aspartate Amino Transf (AST/SGOT) 62H, Alanine Aminotransferase (ALT/SGPT) 90H, Alkaline Phosphatase 322H, C-Reactive Protein, Quantitative 16.1H, Pro-B-Type Natriuretic Peptide 1161H, Total Protein 5.7L, Albumin 2.7L, Globulin 3.0, Albumin/Globulin Ratio 0.9L Height (Feet): 5 Height (Inches): 6.00 Weight (Pounds): 162 Objective WDWN man NCAT supple CTA RR abd distended, (+)large abd wound, dressing dry no edema ALVAREZ MARTINEZ Aug 02, 2016 20:19
[2016-08-02] MEDS ORDERED: NS Irrig 1000ml IRRIG ONE (20:30)
[2016-08-02] MEDS ORDERED: Tamsulosin 0.4mg cap ORAL SCH (21:00)
[2016-08-02] MEDS ORDERED: Bacitracin 50000 Units Vial ONE (21:54)
[2016-08-02] MEDS ORDERED: PCA HYDROmorphone 1mg/ml 30 ML IV PRN (22:15)
[2016-08-02] MEDS ORDERED: Rate Change PCA 1 Each MISC PRN (22:15)
[2016-08-02] MEDS ORDERED: DiphenhydrAMINE 50mg/ml Inj IVP PRN ×2 (22:15)
[2016-08-02] MEDS ORDERED: Naloxone 0.4mg/ml Inj IVP PRN (22:15)
[2016-08-02] MEDS ORDERED: LR 1000ml 1,000 ML IVLG SCH (22:30)
[2016-08-02] MEDS: PCA shift volume MISC SCH (23:00)
[2016-08-02] MEDS: D5 1/2NS w/KCl 20mEq 1,000 ML IV SCH (23:11)
--- NOTE | 2016-08-02 23:11 | Brief Operative Note ---
Immediate Post Operative Note Operative Note Pre-op Diagnosis: Anastomotic leakage Procedure: Exploratory Laparotomy and resection of anastomosis with anstomosis of small bowel to colon Post-op Diagnosis: anastomosis leakage Post-op Diagnosis: same as pre-op Surgeon: Becca Nogueira MD Lead Business Analyst: none Anesthesiologist: Dr. Zepeda Anesthesia: general Specimen: yes Complications: none Condition: stable Estimated Blood Loss: volume - 100 ml Drains: DAKOTA Implant(s) used?: No EDWIN NOGUEIRA Aug 02, 2016 23:10
[2016-08-02] MEDS: Hydromorphone 0.5mg/0.5ml inj IVP PRN ×2 (23:15→23:33)
[2016-08-02] MEDS ORDERED: Metoclopramide 10mg/2ml Inj IVP PRN (23:15)
[2016-08-02] MEDS: Midazolam 2mg/2ml Inj IVP PRN ×2 (23:19→23:40)
--- NOTE | 2016-08-02 23:25 | Immediate Post-Op Evaluation ---
Immediate Post-Op Evalulation Immediate Post-Op Evalulation Procedure: Exploratory laparotomy partial bowel resection Date of Evaluation: Aug 02, 2016 Time of Evaluation: 23:23 IV Fluids: 600 Blood Products: [id number] Estimated Blood Loss: 150 Urinary Output: 100 Blood Pressure Systolic: 126 Blood Pressure Diastolic: 79 Pulse Rate: 84 Respiratory Rate: 22 O2 Sat by Pulse Oximetry: 99 Temperature (Fahrenheit): 97.6 Pain Score (1-10): 3 Nausea: No Vomiting: No Complications none Patient Status: awake, patent, extubated, none Hydration Status: adequate AMY GOLDMAN M.D. Aug 02, 2016 23:25
--- NOTE | 2016-08-02 23:27 | General Progress Note ---
Assessment/Plan Assessment/Plan ASSESSMENT: 1. Leukocytosis getting worse Likely 2/2 underlying sepsis vs reactive. Peripheral smear has been within normal limits 2. Anemia 2/2 chronic disease, does not require iron 3. Sepsis, likely contributing to leukocytosis. 4. Abdominal pain due to small bowel obstruction. 5. Small bowel obstruction. status post exploratory laparotomy 6. CT of the abdomen showed anatomotic leakage. patient to have emergency exploratory LAP tonight 7. Anemia 2/2 hemodilution 8. Platelet counts is improved. Normal range RECOMMENDATIONS: 1. Monitor counts 2. Have reviewed anemia workup, does not need iron 3. Follow up on Surgery, ID recs 4. Imaging reviewed. 5. Transfuse if hgb <7. 6. DVT ppx lovenox 7. GI ppx ppi 8. DW staff Thank you, Andrew Mendez MD Subjective Constitutional: Reports: no symptoms HEENT: Reports: no symptoms Cardiovascular: Reports: no symptoms Respiratory: Reports: no symptoms Gastrointestinal/Abdominal: Reports: no symptoms 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: Reports: no symptoms Endocrine: Reports: no symptoms Hematologic/Lymphatic: Reports: anemia Allergies: Coded Allergies: No Known Allergies (Unverified , 07/26/16) Subjective no bleeding reported.no hematochezia or hematemesis Objective Last 24 Hour Vital Signs Date Time Temp Pulse Resp B/P Pulse Ox O2 Delivery O2 Flow Rate FiO2 08/02/16 20:00 98.6 82 19 155/91 97 Room Air 08/02/16 16:13 97.7 76 18 123/73 99 Room Air 08/02/16 12:00 98.1 67 20 137/91 98 Room Air 08/02/16 09:06 86 140/87 08/02/16 09:05 86 140/87 08/02/16 08:00 98.2 86 20 140/87 98 Room Air Intake and Output 08/02/16 08/02/16 11:00 23:00 Intake Total 270 ml 510 ml Output Total 530 ml 60 ml Balance -260 ml 450 ml Intake Oral 120 ml 360 ml IV Total 150 ml 150 ml Output Urine Total 400 ml Drainage Total 130 ml 60 ml # Voids 5 2 # Bowel Movements 3 Laboratory Tests 08/02/16 05:40: White Blood Count 17.4H, Red Blood Count 3.08L, Hemoglobin 9.3L, Hematocrit 27.6L, Mean Corpuscular Volume 90, Mean Corpuscular Hemoglobin 30.4, Mean Corpuscular Hemoglobin Concent 33.8, Red Cell Distribution Width 12.2, Platelet Count 241, Mean Platelet Volume 7.8, Neutrophils (%) (Auto) 84.5H, Lymphocytes ( %) (Auto) 3.2L, Monocytes (%) (Auto) 8.9, Eosinophils (%) (Auto) 3.0, Basophils (%) (Auto) 0.5, Sodium Level 138, Potassium Level 3.6, Chloride Level 100, Carbon Dioxide Level 20, Anion Gap 18H, Blood Urea Nitrogen 46H, Creatinine 3.6H , Estimat Glomerular Filtration Rate 17.1, Glucose Level 155H, Uric Acid 6.0, Calcium Level 8.1L, Phosphorus Level 3.6, Magnesium Level 1.9, Total Bilirubin 1.0, Gamma Glutamyl Transpeptidase 368H, Aspartate Amino Transf (AST/SGOT) 62H, Alanine Aminotransferase (ALT/SGPT) 90H, Alkaline Phosphatase 322H, C-Reactive Protein, Quantitative 16.1H, Pro-B-Type Natriuretic Peptide 1161H, Total Protein 5.7L, Albumin 2.7L, Globulin 3.0, Albumin/Globulin Ratio 0.9L Height (Feet): 5 Height (Inches): 6.00 Weight (Pounds): 162 General Appearance: no apparent distress EENT: PERRL/EOMI Neck: supple Cardiovascular: normal rate Respiratory/Chest: lungs clear Abdomen: tender Edema: 1+ Leg (L), 1+ Leg (R) Skin: warm/dry Andrew Mendez Aug 02, 2016 23:27
[2016-08-03] VITALS (22 sets, daily range): BP systolic 120–168; BP diastolic 56–106
--- NOTE | 2016-08-03 01:37 | Operative Note - Dictated ---
DATE OF OPERATION: 08/02/2016 PREOPERATIVE DIAGNOSIS: Anastomosis leakage. POSTOPERATIVE DIAGNOSIS: Anastomosis leakage. OPERATION: 1. Exploratory laparotomy. 2. Bowel resection. COMPLICATIONS: None. SURGEON: Wisam Murrieta M.D. FOOD SERVICE TEAM MEMBER: None. ANESTHESIA: General with endotracheal tube. ANESTHESIOLOGIST: John Zepeda M.D. INDICATIONS: This is a 65-year-old Turk[place] male, who presented to emergency room on 07/26/2016 late at night with abdominal pain and vomiting. The next day, which was 07/27/2016, he underwent exploratory laparotomy, then it was noticed that the patient had a volvulus of the proximal part of the small bowel, so the volvulus was released and the color returned to normal. The next day, the patient developed septic shock and acute abdomen, so again he underwent the exploratory laparotomy, which was noticed that the patient had gangrene of the distal part of the small bowel, so about 50% of the small bowel was resected and the anastomoses between small bowel and cecum was performed with the RADHA stapler. The postop course was progressing very nicely, but the patient had a large amount of drainage and besides two days ago, the WBC, which was normal raised to 12,000 and then to 17,000. Today, it was 17.4 and the patient has been complaining of abdominal pain, so a CAT scan was obtained, which showed the leakage most probably from the anastomosis, so the decision was made for exploratory laparotomy. The procedure and the situation was explained in detail to the son inlaw and daughter of the patient and even to one of the relatives who is an anesthesiologist, I explained the whole situation. DESCRIPTION OF PROCEDURE: The patient was placed supine on the operating table and after general anesthesia with endotracheal tube, the abdomen was properly prepped and draped. The cristy were removed and the incision was opened up and the sutures were removed and intraperitoneal cavity was entered. In entering the intraperitoneal cavity, the abdomen was very nice and clean. Obviously, there was adhesion of the bowels. Exploration of the right lower quadrant performed and the cecum and the anastomosis was identified, which seemed to be intact. The small bowel was elevated and suddenly, it was noticed that there was a puddle of bilious fluid. The extensive exploration was performed and it was noticed that at the peak of the anastomosis, there was a small opening through which the fluid was draining, so the decision was made to revise the anastomosis. The ascending colon was released and the hepatic flexure was released. The RADHA stapler was placed above the area of the anastomosis and another RADHA stapler was placed over the small bowel proximal to anastomosis and the mesentery was ligated with a 0 silk and was transected and the anastomosis with the small part of the ascending colon, the small bowel was removed. The bowel at this time was very pink without any ischemia. There was no leakage, so initially, the cavity that had bilious fluid was thoroughly irrigated and this extended to the midline and even to the left side. The whole area was copiously irrigated with antibiotic solution and then another anastomosis between the small bowel and the ascending colon at the area of the hepatic flexure was performed with a RADHA stapler to make sure that there was no more leakage. This anastomosis was reinforced with a suture of 3-0 silk. After this, the exploration was performed and it was noticed that the sigmoid colon, which was at the area of the anastomosis had a laceration of the seromuscular layer and the mucosa was bulging out, so this layer was repaired with multiple interrupted suture of a 3-0 silk. Further exploration did not show any complication. The intraperitoneal cavity was thoroughly irrigated with antibiotic solution and the previous drain was left in place, but another Kyree drain was placed at the area of the abscess and was brought out from a separate stab wound at the right lower quadrant. The incision was approximated with running suture of #1 Vicryl for the posterior fascia and peritoneum and #1 Prolene for anterior fascia. The skin was approximated with multiple skin cristy. The patient tolerated the procedure well and was transferred to recovery room in stable condition and extubated. The sponge and needle count were correct. Estimated blood loss was 100 mL. Condition of the patient at the end of procedure is stable. Wisam Murrieta M.D. DR: DAVID JOB#: [id number] CC: DIANA
[2016-08-03] MEDS: D5NS 1,000 ML IV SCH ×2 (01:57→06:27)
[2016-08-03] MEDS: Clindamycin 600mg 50 ML IV SCH (04:00)
[2016-08-03 05:48] LABS: BASOPHILS % (AUTO) 0.6 % (0.0-2.0); EOSINOPHILS % (AUTO) 2.5 % (0.0-3.0); LYMPHOCYTES % (AUTO) 4.6 % (20.0-45.0); MEAN CORPUSCULAR HEMOGLOBIN 30.7 PG (27.0-31.0); MEAN CORPUSCULAR HGB CONC 33.1 G/DL (32.0-36.0); MEAN CORPUSCULAR VOLUME 93 FL (80-99); MEAN PLATELET VOLUME 6.4 FL (6.5-10.1); MONOCYTES % (AUTO) 8.1 % (1.0-10.0); NEUTROPHILS % (AUTO) 84.2 % (45.0-75.0); PLATELET COUNT 290 K/UL (150-450); RED BLOOD COUNT 2.72 M/UL (4.70-6.10); RED CELL DISTRIBUTION WIDTH 12.4 % (11.6-14.8); WHITE BLOOD COUNT 15.9 K/UL (4.8-10.8)
[2016-08-03 05:54] LABS: CREATININE 3.4 mg/dL (0.7-1.2); GLOMERULAR FILTRATION RATE 18.3 mL/min (>60); POTASSIUM 3.5 mEQ/L (3.4-4.9)
[2016-08-03] MEDS: Piperacillin/Tazobactam 3.375 GM in D5W 110 ML IVPB SCH ×4 (06:23→21:47)
[2016-08-03] MEDS: PCA shift volume MISC SCH ×4 (07:00→19:36)
[2016-08-03] MEDS ORDERED: Acetaminophen 650 MG SUPP RECTAL PRN ×2 (08:40→19:00)
--- NOTE | 2016-08-03 08:53 | General Progress Note ---
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 Pt was d/w Dr. Aguirre and he concurred. Subjective Date patient seen: Aug 03, 2016 Time patient seen: 08:00 - am Allergies: Coded Allergies: No Known Allergies (Unverified , 07/26/16) Subjective Constitutional: Reports: weakness, Denies: chills, diaphoresis, fever, malaise HEENT: Denies: blurred vision, double vision, ear discharge, ear pain, eye pain , mouth pain, mouth swelling, nose congestion, nose pain, tearing, throat pain, throat swelling Cardiovascular: Denies: chest pain, edema, irregular heart rate, lightheadedness, palpitations, syncope Respiratory: Denies: SOB at rest, SOB with exertion, cough, orthopnea, sputum, stridor, wheezing Gastrointestinal/Abdominal: Reports: abdomen distended, abdominal pain Denies: black stools, blood in stool, constipated, diarrhea, difficulty swallowing, poor appetite, poor fluid intake, rectal bleeding, tarry stools, vomiting Genitourinary: Denies: burning, discharge, flank pain, frequency, hematuria, incontinence, pain, urgency 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: Reports: weakness, Denies: anxiety, depressed, emotional problems, headache, numbness, paresthesia, pre-existing deficit, seizure, tingling, tremors Endocrine: Denies: excessive sweating, flushing, increased hunger, increased thirst, increased urine, intolerance to cold, intolerance to heat, unexplained weight gain, unexplained weight loss Hematologic/Lymphatic: Denies: anemia, easy bleeding, easy bruising Subjective Pt is s/p exploratory laparotomy due to leakage seen on CT scan. He now is in ICU family at bed side. Pt was started on RIVETING MACHINE OPERATOR TAPE CONTROL 0.4mg Q6min and has used 6.79 mg since surgery. At this time I d/w family who explained to patient that narcotics should be used as sparingly as possible and only if needed for severe pain. Pt and family would like as needed medication and would not like the RIVETING MACHINE OPERATOR TAPE CONTROL at this time. I explained that it the pain is not tolerated on the as needed medication we can reassess and order other medication if warranted. Objective Last 24 Hour Vital Signs Date Time Temp Pulse Resp B/P Pulse Ox O2 Delivery O2 Flow Rate FiO2 08/03/16 07:00 107 20 148/79 100 Nasal Cannula 2.0 08/03/16 06:00 94 20 141/86 100 Nasal Cannula 2.0 08/03/16 05:00 96 22 141/86 100 Nasal Cannula 2.0 08/03/16 04:00 98.1 96 22 141/86 100 Nasal Cannula 2.0 08/03/16 04:00 95 08/03/16 04:00 12 08/03/16 03:00 92 18 168/106 100 Nasal Cannula 2.0 08/03/16 02:15 12 08/03/16 02:00 94 20 161/87 100 Nasal Cannula 2.0 08/03/16 01:00 93 19 136/84 100 Nasal Cannula 2.0 08/03/16 00:27 94 08/03/16 00:20 21 08/03/16 00:08 98.9 95 23 145/82 100 Nasal Cannula 2.0 08/03/16 00:05 22 08/02/16 23:50 93 20 130/82 99 Simple Mask 8.0 08/02/16 23:50 20 08/02/16 23:39 18 08/02/16 23:39 94 20 135/85 99 Simple Mask 8.0 08/02/16 23:33 95 20 139/84 100 Simple Mask 8.0 08/02/16 23:25 84 22 99 08/02/16 23:22 97 20 139/84 100 Simple Mask 8.0 08/02/16 23:17 100 20 126/79 100 Simple Mask 8.0 08/02/16 23:15 100 20 126/79 100 Simple Mask 8.0 08/02/16 23:12 99.6 108 20 133/79 100 Simple Mask 8.0 08/02/16 21:00 95 144/85 08/02/16 21:00 96 144/85 08/02/16 20:00 98.6 82 19 155/91 97 Room Air 08/02/16 16:13 97.7 76 18 123/73 99 Room Air 08/02/16 12:00 98.1 67 20 137/91 98 Room Air 08/02/16 09:06 86 140/87 08/02/16 09:05 86 140/87 Intake and Output 08/02/16 08/03/16 18:59 06:59 Intake Total 630 ml 1800 ml Output Total 80 ml 925 ml Balance 550 ml 875 ml Intake Oral 480 ml IV Total 150 ml 1300 ml Other 500 ml Output Urine Total 775 ml Drainage Total 80 ml Estimated Blood Loss 150 ml # Voids 3 # Bowel Movements 3 Laboratory Tests 08/03/16 04:00: White Blood Count 15.9H, Red Blood Count 2.72L, Hemoglobin 8.3L, Hematocrit 25.2L, Mean Corpuscular Volume 93, Mean Corpuscular Hemoglobin 30.7, Mean Corpuscular Hemoglobin Concent 33.1, Red Cell Distribution Width 12.4, Platelet Count 290, Mean Platelet Volume 6.4L, Neutrophils (%) (Auto) 84.2H, Lymphocytes (%) (Auto) 4.6L, Monocytes (%) (Auto) 8.1, Eosinophils (%) (Auto) 2.5, Basophils (%) (Auto) 0.6, Sodium Level 140, Potassium Level 3.5, Chloride Level 105, Carbon Dioxide Level 21, Anion Gap 14, Blood Urea Nitrogen 40H, Creatinine 3.4H, Estimat Glomerular Filtration Rate 18.3, Glucose Level 250H, Calcium Level 7.0L Objective General Appearance: alert EENT: PERRL/EOMI, NG tube seen Neck: non-tender, supple Cardiovascular: normal rate, regular rhythm Respiratory/Chest: lungs clear Abdomen: other - tenderness to palpation bandages applied Extremities: normal inspection Neurologic: alert, responsive Skin: warm/dry SHA BOSE N. P.Shaun Aug 03, 2016 08:53
[2016-08-03] MEDS ORDERED: Hydromorphone 0.5mg/0.5ml inj IVP PRN (09:00)
[2016-08-03] MEDS ORDERED: HYDROmorphone 1mg/ml Carpuject IVP PRN (09:00)
[2016-08-03] MEDS ORDERED: Pantoprazole Inj IVP SCH (09:00)
[2016-08-03] MEDS: Enoxaparin 30mg Inj SUBQ SCH (09:00)
[2016-08-03] MEDS: Metoprolol 25mg tab ORAL SCH ×2 (09:00→21:15)
[2016-08-03] MEDS: D5 1/2NS w/KCl 20mEq 1,000 ML IV SCH (09:11)
[2016-08-03] MEDS ORDERED: Simethicone 80mg tab NG PRN (09:30)
[2016-08-03] MEDS ORDERED: Clindamycin 600mg 50 ML IVPB SCH (09:30)
[2016-08-03] MEDS ORDERED: Metoprolol 25mg tab ORAL SCH (10:00)
[2016-08-03] MEDS ORDERED: Enoxaparin 30mg Inj SUBQ SCH (10:00)
[2016-08-03] MEDS ORDERED: D5NS 1,000 ML IV SCH ×2 (10:30→19:00)
[2016-08-03] MEDS ORDERED: PCA HYDROmorphone 1mg/ml 30 ML IV PRN ×2 (10:30→19:00)
[2016-08-03] MEDS ORDERED: Rate Change PCA 1 Each MISC PRN ×2 (10:30→19:00)
[2016-08-03] MEDS ORDERED: Naloxone 0.4mg/ml Inj IVP PRN ×2 (10:30→19:00)
[2016-08-03] MEDS ORDERED: DiphenhydrAMINE 50mg/ml Inj IVP PRN ×2 (10:30→19:00)
--- NOTE | 2016-08-03 10:38 | General Progress Note ---
Assessment/Plan Status: unchanged Status Narrative Cr lower 3.4 Assessment/Plan status: Septic Shock leading to acute renal failure- Cr leveling and lowering Abdominal Surgery 07/26/16 then again 05/27 and revison 08/02 Plan; in ICU- start TPN [place] post op care- IV Fluids for now until TPN starts Antibiotics- Protonix IV monitor renal parameters- Subjective ROS Limited/Unobtainable: No Constitutional: Reports: malaise Allergies: Coded Allergies: No Known Allergies (Unverified , 07/26/16) Objective Last 24 Hour Vital Signs Date Time Temp Pulse Resp B/P Pulse Ox O2 Delivery O2 Flow Rate FiO2 08/03/16 10:10 92 143/90 08/03/16 10:10 92 143/90 08/03/16 07:00 107 20 148/79 100 Nasal Cannula 2.0 08/03/16 06:00 94 20 141/86 100 Nasal Cannula 2.0 08/03/16 05:00 96 22 141/86 100 Nasal Cannula 2.0 08/03/16 04:00 98.1 96 22 141/86 100 Nasal Cannula 2.0 08/03/16 04:00 95 08/03/16 04:00 12 08/03/16 03:00 92 18 168/106 100 Nasal Cannula 2.0 08/03/16 02:15 12 08/03/16 02:00 94 20 161/87 100 Nasal Cannula 2.0 08/03/16 01:00 93 19 136/84 100 Nasal Cannula 2.0 08/03/16 00:27 94 08/03/16 00:20 21 08/03/16 00:08 98.9 95 23 145/82 100 Nasal Cannula 2.0 08/03/16 00:05 22 08/02/16 23:50 93 20 130/82 99 Simple Mask 8.0 08/02/16 23:50 20 08/02/16 23:39 18 08/02/16 23:39 94 20 135/85 99 Simple Mask 8.0 08/02/16 23:33 95 20 139/84 100 Simple Mask 8.0 08/02/16 23:25 84 22 99 08/02/16 23:22 97 20 139/84 100 Simple Mask 8.0 08/02/16 23:17 100 20 126/79 100 Simple Mask 8.0 08/02/16 23:15 100 20 126/79 100 Simple Mask 8.0 08/02/16 23:12 99.6 108 20 133/79 100 Simple Mask 8.0 08/02/16 21:00 95 144/85 08/02/16 21:00 96 144/85 08/02/16 20:00 98.6 82 19 155/91 97 Room Air 08/02/16 16:13 97.7 76 18 123/73 99 Room Air 08/02/16 12:00 98.1 67 20 137/91 98 Room Air Intake and Output 08/02/16 08/03/16 19:00 07:00 Intake Total 630 ml 2227.5 ml Output Total 80 ml 1035 ml Balance 550 ml 1192.5 ml Intake Oral 480 ml IV Total 150 ml 1727.5 ml Other 500 ml Output Urine Total 835 ml Drainage Total 80 ml 50 ml Estimated Blood Loss 150 ml # Voids 3 # Bowel Movements 3 Laboratory Tests 08/03/16 04:00: White Blood Count 15.9H, Red Blood Count 2.72L, Hemoglobin 8.3L, Hematocrit 25.2L, Mean Corpuscular Volume 93, Mean Corpuscular Hemoglobin 30.7, Mean Corpuscular Hemoglobin Concent 33.1, Red Cell Distribution Width 12.4, Platelet Count 290, Mean Platelet Volume 6.4L, Neutrophils (%) (Auto) 84.2H, Lymphocytes (%) (Auto) 4.6L, Monocytes (%) (Auto) 8.1, Eosinophils (%) (Auto) 2.5, Basophils (%) (Auto) 0.6, Sodium Level 140, Potassium Level 3.5, Chloride Level 105, Carbon Dioxide Level 21, Anion Gap 14, Blood Urea Nitrogen 40H, Creatinine 3.4H, Estimat Glomerular Filtration Rate 18.3, Glucose Level 250H, Calcium Level 7.0L General Appearance: no apparent distress Cardiovascular: tachycardia Respiratory/Chest: decreased breath sounds Abdomen: distended Objective no other changes in PE REBECCA SCHULTE Aug 03, 2016 10:38
--- NOTE | 2016-08-03 10:45 | General Progress Note ---
Assessment/Plan Problem List: (1) Ileus ICD Codes: K56.7 - Ileus, unspecified SNOMED: 979788482 (2) Sepsis ICD Codes: A41.9 - Sepsis, unspecified organism SNOMED: 79542840 (3) Abdominal pain ICD Codes: R10.9 - Unspecified abdominal pain SNOMED: 30373354 (4) SBO (small bowel obstruction) ICD Codes: K56.69 - Other intestinal obstruction SNOMED: 404532933 (5) Abdominal gas pain ICD Codes: R14.1 - Gas pain SNOMED: 91357346 (6) Enteritis ICD Codes: K52.9 - Noninfective gastroenteritis and colitis, unspecified SNOMED: 21648764 Status: unchanged Assessment/Plan sbo s/p another exploratory lap by dr zee for possible anasamosis leak in icu has abdominal pain sepsis abx per id guarded condition Subjective ROS Limited/Unobtainable: Yes Constitutional: Reports: no symptoms Allergies: Coded Allergies: No Known Allergies (Unverified , 07/26/16) Objective Last 24 Hour Vital Signs Date Time Temp Pulse Resp B/P Pulse Ox O2 Delivery O2 Flow Rate FiO2 08/03/16 10:10 92 143/90 08/03/16 10:10 92 143/90 08/03/16 07:00 107 20 148/79 100 Nasal Cannula 2.0 08/03/16 06:00 94 20 141/86 100 Nasal Cannula 2.0 08/03/16 05:00 96 22 141/86 100 Nasal Cannula 2.0 08/03/16 04:00 98.1 96 22 141/86 100 Nasal Cannula 2.0 08/03/16 04:00 95 08/03/16 04:00 12 08/03/16 03:00 92 18 168/106 100 Nasal Cannula 2.0 08/03/16 02:15 12 08/03/16 02:00 94 20 161/87 100 Nasal Cannula 2.0 08/03/16 01:00 93 19 136/84 100 Nasal Cannula 2.0 08/03/16 00:27 94 08/03/16 00:20 21 08/03/16 00:08 98.9 95 23 145/82 100 Nasal Cannula 2.0 08/03/16 00:05 22 08/02/16 23:50 93 20 130/82 99 Simple Mask 8.0 08/02/16 23:50 20 08/02/16 23:39 18 08/02/16 23:39 94 20 135/85 99 Simple Mask 8.0 08/02/16 23:33 95 20 139/84 100 Simple Mask 8.0 08/02/16 23:25 84 22 99 08/02/16 23:22 97 20 139/84 100 Simple Mask 8.0 08/02/16 23:17 100 20 126/79 100 Simple Mask 8.0 08/02/16 23:15 100 20 126/79 100 Simple Mask 8.0 08/02/16 23:12 99.6 108 20 133/79 100 Simple Mask 8.0 08/02/16 21:00 95 144/85 08/02/16 21:00 96 144/85 08/02/16 20:00 98.6 82 19 155/91 97 Room Air 08/02/16 16:13 97.7 76 18 123/73 99 Room Air 08/02/16 12:00 98.1 67 20 137/91 98 Room Air Intake and Output 08/02/16 08/03/16 19:00 07:00 Intake Total 630 ml 2227.5 ml Output Total 80 ml 1035 ml Balance 550 ml 1192.5 ml Intake Oral 480 ml IV Total 150 ml 1727.5 ml Other 500 ml Output Urine Total 835 ml Drainage Total 80 ml 50 ml Estimated Blood Loss 150 ml # Voids 3 # Bowel Movements 3 Laboratory Tests 08/03/16 04:00: White Blood Count 15.9H, Red Blood Count 2.72L, Hemoglobin 8.3L, Hematocrit 25.2L, Mean Corpuscular Volume 93, Mean Corpuscular Hemoglobin 30.7, Mean Corpuscular Hemoglobin Concent 33.1, Red Cell Distribution Width 12.4, Platelet Count 290, Mean Platelet Volume 6.4L, Neutrophils (%) (Auto) 84.2H, Lymphocytes (%) (Auto) 4.6L, Monocytes (%) (Auto) 8.1, Eosinophils (%) (Auto) 2.5, Basophils (%) (Auto) 0.6, Sodium Level 140, Potassium Level 3.5, Chloride Level 105, Carbon Dioxide Level 21, Anion Gap 14, Blood Urea Nitrogen 40H, Creatinine 3.4H, Estimat Glomerular Filtration Rate 18.3, Glucose Level 250H, Calcium Level 7.0L Abdomen: tender Teo Love MD Aug 03, 2016 10:45
--- NOTE | 2016-08-03 10:52 | Pulmonolgy Critical Care Note ---
Critical Care - Asmt/Plan Problems: (1) Septic shock (2) MIGNON (acute kidney injury) (3) SBO (small bowel obstruction) (4) Ileus (5) Enteritis (6) Non-ST elevation (NSTEMI) myocardial infarction Respiratory: monitor respiratory rate, adjust FIO2, CXR Cardiac: continue to monitor HR/BP Renal: F/U I&O, keep IV fluid, check electrolytes Infectious Disease: check cultures, continue antibiotics Gastrointestinal: hold feedings, other - start tpn soon Endocrine: monitor blood sugar, continue sliding scale insulin Hematologic: monitor H/H, transfuse if hgb<8.5 Neurologic: PRN Ativan, keep patient comfortable Prophylaxis: Protonix Disposition: transfer to Notes Reviewed: flatwork presser, cardio Discussed with: nurses, consultants, disease case managerocean export account manager - Objective Last 24 Hour Vital Signs Date Time Temp Pulse Resp B/P Pulse Ox O2 Delivery O2 Flow Rate FiO2 08/03/16 10:10 92 143/90 08/03/16 10:10 92 143/90 08/03/16 08:00 84 08/03/16 07:00 107 20 148/79 100 Nasal Cannula 2.0 08/03/16 06:00 94 20 141/86 100 Nasal Cannula 2.0 08/03/16 05:00 96 22 141/86 100 Nasal Cannula 2.0 08/03/16 04:00 98.1 96 22 141/86 100 Nasal Cannula 2.0 08/03/16 04:00 95 08/03/16 04:00 12 08/03/16 03:00 92 18 168/106 100 Nasal Cannula 2.0 08/03/16 02:15 12 08/03/16 02:00 94 20 161/87 100 Nasal Cannula 2.0 08/03/16 01:00 93 19 136/84 100 Nasal Cannula 2.0 08/03/16 00:27 94 08/03/16 00:20 21 08/03/16 00:08 98.9 95 23 145/82 100 Nasal Cannula 2.0 08/03/16 00:05 22 08/02/16 23:50 93 20 130/82 99 Simple Mask 8.0 08/02/16 23:50 20 08/02/16 23:39 18 08/02/16 23:39 94 20 135/85 99 Simple Mask 8.0 08/02/16 23:33 95 20 139/84 100 Simple Mask 8.0 08/02/16 23:25 84 22 99 08/02/16 23:22 97 20 139/84 100 Simple Mask 8.0 08/02/16 23:17 100 20 126/79 100 Simple Mask 8.0 08/02/16 23:15 100 20 126/79 100 Simple Mask 8.0 08/02/16 23:12 99.6 108 20 133/79 100 Simple Mask 8.0 08/02/16 21:00 95 144/85 08/02/16 21:00 96 144/85 08/02/16 20:00 98.6 82 19 155/91 97 Room Air 08/02/16 16:13 97.7 76 18 123/73 99 Room Air 08/02/16 12:00 98.1 67 20 137/91 98 Room Air Status: awake Condition: critical HEENT: atraumatic Neck: full ROM Lungs: clear Heart: HR/BP stable, HR/BP unstable Abdomen: feeding tube Extremities: no C/C/E, edema Micro: Microbiology Date/Time Source Procedure Growth Status 08/01/16 20:12 Blood Blood Culture - Preliminary NO GROWTH AFTER 24 HOURS Resulted 08/01/16 20:00 Blood Blood Culture - Preliminary NO GROWTH AFTER 24 HOURS Resulted 08/01/16 18:00 Stool Clostridium difficile Toxin Assay - Final Complete Critical Care - Subjective ROS Limited/Unobtainable: No ICU Day: 2 Intubation Day: extubated this morning Condition: critical, improving EKG Rhythm: Sinus Rhythm FI02: 32 Vent Support Breath Rate: 14 Vent Support Mode: CPAP Vent Tidal Volume: 600 Sputum Amount: None PIP: 11 Fluids: d5 ns 100 cc.hour Drips: transportation operations manager pump I&O: Intake and Output 08/02/16 08/03/16 19:00 07:00 Intake Total 630 ml 2227.5 ml Output Total 80 ml 1035 ml Balance 550 ml 1192.5 ml Intake Oral 480 ml IV Total 150 ml 1727.5 ml Other 500 ml Output Urine Total 835 ml Drainage Total 80 ml 50 ml Estimated Blood Loss 150 ml # Voids 3 # Bowel Movements 3 ET-Tube: 8.5 ET Position: 20 Labs: Laboratory Tests Test 08/03/16 04:00 White Blood Count 15.9 K/UL (4.8-10.8) H Red Blood Count 2.72 M/UL (4.70-6.10) L Hemoglobin 8.3 G/DL (14.2-18.0) L Hematocrit 25.2 % (42.0-52.0) L Mean Corpuscular Volume 93 FL (80-99) Mean Corpuscular Hemoglobin 30.7 PG (27.0-31.0) Mean Corpuscular Hemoglobin Concent 33.1 G/DL (32.0-36.0) Red Cell Distribution Width 12.4 % (11.6-14.8) Platelet Count 290 K/UL (150-450) Mean Platelet Volume 6.4 FL (6.5-10.1) L Neutrophils (%) (Auto) 84.2 % (45.0-75.0) H Lymphocytes (%) (Auto) 4.6 % (20.0-45.0) L Monocytes (%) (Auto) 8.1 % (1.0-10.0) Eosinophils (%) (Auto) 2.5 % (0.0-3.0) Basophils (%) (Auto) 0.6 % (0.0-2.0) Sodium Level 140 mEQ/L (135-145) Potassium Level 3.5 mEQ/L (3.4-4.9) Chloride Level 105 mEQ/L (98-107) Carbon Dioxide Level 21 mEQ/L (20-30) Anion Gap 14 (5-15) Blood Urea Nitrogen 40 mg/dL (7-23) H Creatinine 3.4 mg/dL (0.7-1.2) H Estimat Glomerular Filtration Rate 18.3 mL/min (>60) Glucose Level 250 mg/dL (74-106) H Calcium Level 7.0 mg/dL (8.6-10.2) MAIKEL PEARSON Aug 03, 2016 10:52
--- NOTE | 2016-08-03 10:55 | 48 Hour Post Anesthesia Eval ---
Post Anesthesia Evaluation Procedure: Exploratory laparotomy partial bowel resection Date of Evaluation: Jul 28, 2016 Time of Evaluation: 11:00 Blood Pressure Systolic: 148 0: 72 Pulse Rate: 98 Respiratory Rate: 20 O2 Sat by Pulse Oximetry: 100 Airway: other - intubated, on vent Nausea: No Vomiting: No Pain Intensity: 0 Hydration Status: adequate Cardiopulmonary Status: at baseline Mental Status/LOC: other - intubataed, sedated Post-Anesthesia Complications: 0 Follow-up care needed: N/A - further care as per primary team MARC BARTLETT M.D. Aug 03, 2016 10:55
--- NOTE | 2016-08-03 13:41 | General Surgery Progress Note ---
General Surgery-Progress Note Subjective Procedure Performed Exploratory Laparotomy and resection of anastomosis with anstomosis of small bowel to colon Objective Last 24 Hour Vital Signs Date Time Temp Pulse Resp B/P Pulse Ox O2 Delivery O2 Flow Rate FiO2 08/03/16 13:00 78 21 120/69 100 Nasal Cannula 2.0 08/03/16 12:00 20 08/03/16 12:00 98.1 78 21 131/85 100 Nasal Cannula 2.0 08/03/16 12:00 77 08/03/16 11:00 78 21 136/86 100 Nasal Cannula 2.0 08/03/16 10:56 98 20 100 08/03/16 10:10 92 143/90 08/03/16 10:10 92 143/90 08/03/16 10:00 79 21 146/90 100 Nasal Cannula 2.0 08/03/16 09:00 85 24 139/71 100 Nasal Cannula 2.0 08/03/16 08:00 98.5 99 20 141/56 100 Nasal Cannula 2.0 08/03/16 08:00 23 08/03/16 08:00 84 08/03/16 07:08 97 Nasal Cannula 2.0 08/03/16 07:06 Nasal Cannula 2.0 08/03/16 07:00 107 20 148/79 100 Nasal Cannula 2.0 08/03/16 06:00 94 20 141/86 100 Nasal Cannula 2.0 08/03/16 05:00 96 22 141/86 100 Nasal Cannula 2.0 08/03/16 04:00 98.1 96 22 141/86 100 Nasal Cannula 2.0 08/03/16 04:00 95 08/03/16 04:00 12 08/03/16 03:00 92 18 168/106 100 Nasal Cannula 2.0 08/03/16 02:15 12 08/03/16 02:00 94 20 161/87 100 Nasal Cannula 2.0 08/03/16 01:00 93 19 136/84 100 Nasal Cannula 2.0 08/03/16 00:27 94 08/03/16 00:20 21 08/03/16 00:08 98.9 95 23 145/82 100 Nasal Cannula 2.0 08/03/16 00:05 22 08/02/16 23:50 93 20 130/82 99 Simple Mask 8.0 08/02/16 23:50 20 08/02/16 23:39 18 08/02/16 23:39 94 20 135/85 99 Simple Mask 8.0 08/02/16 23:33 95 20 139/84 100 Simple Mask 8.0 08/02/16 23:25 84 22 99 08/02/16 23:22 97 20 139/84 100 Simple Mask 8.0 08/02/16 23:17 100 20 126/79 100 Simple Mask 8.0 08/02/16 23:15 100 20 126/79 100 Simple Mask 8.0 08/02/16 23:12 99.6 108 20 133/79 100 Simple Mask 8.0 08/02/16 21:00 95 144/85 08/02/16 21:00 96 144/85 08/02/16 20:00 98.6 82 19 155/91 97 Room Air 08/02/16 16:13 97.7 76 18 123/73 99 Room Air I&O Intake and Output 08/02/16 08/03/16 19:00 07:00 Intake Total 630 ml 2227.5 ml Output Total 80 ml 1035 ml Balance 550 ml 1192.5 ml Intake Oral 480 ml IV Total 150 ml 1727.5 ml Other 500 ml Output Urine Total 835 ml Drainage Total 80 ml 50 ml Estimated Blood Loss 150 ml # Voids 3 # Bowel Movements 3 Drains: curtis Respiratory: clear Abdomen: soft, flat, tenderness, absent bowel sounds Extremities: edema Laboratory Tests Test 08/03/16 04:00 White Blood Count 15.9 K/UL (4.8-10.8) H Red Blood Count 2.72 M/UL (4.70-6.10) L Hemoglobin 8.3 G/DL (14.2-18.0) L Hematocrit 25.2 % (42.0-52.0) L Mean Corpuscular Volume 93 FL (80-99) Mean Corpuscular Hemoglobin 30.7 PG (27.0-31.0) Mean Corpuscular Hemoglobin Concent 33.1 G/DL (32.0-36.0) Red Cell Distribution Width 12.4 % (11.6-14.8) Platelet Count 290 K/UL (150-450) Mean Platelet Volume 6.4 FL (6.5-10.1) L Neutrophils (%) (Auto) 84.2 % (45.0-75.0) H Lymphocytes (%) (Auto) 4.6 % (20.0-45.0) L Monocytes (%) (Auto) 8.1 % (1.0-10.0) Eosinophils (%) (Auto) 2.5 % (0.0-3.0) Basophils (%) (Auto) 0.6 % (0.0-2.0) Sodium Level 140 mEQ/L (135-145) Potassium Level 3.5 mEQ/L (3.4-4.9) Chloride Level 105 mEQ/L (98-107) Carbon Dioxide Level 21 mEQ/L (20-30) Anion Gap 14 (5-15) Blood Urea Nitrogen 40 mg/dL (7-23) H Creatinine 3.4 mg/dL (0.7-1.2) H Estimat Glomerular Filtration Rate 18.3 mL/min (>60) Glucose Level 250 mg/dL (74-106) H Calcium Level 7.0 mg/dL (8.6-10.2) L Assessment Post-op Diagnosis anastomosis leakage Plan Additional Comments continue IV Antibiotics & NPO EDWIN NOGUEIRA Aug 03, 2016 13:41
--- NOTE | 2016-08-03 15:27 | Cardiac Electrophysiology PN ---
Assessment/Plan Assessment/Plan 1. NSTEMI with elevated troponin due to demand ischemia vs renal failure. ECG non ischemic. Troponin 1.3 to 0.33. Echo NL EF.Continue Lopressor 25 bid. 2. S/P Septic shock due to small bowel obstruction and gangrene. Off pressors.On iv fluid and antibiotics.WBC 15.9K 3. HTN. Continue Lopressor 25 bid.Avoid ACEI or ARB for renal failure 4. Small bowel obstruction status post laparotomy and small bowel resection.S/P redo surgery last night 08/02/16. Follow up Dr Murrieta. 5. Respiratory failure . Extubated 6. Renal failure, creatinine 4.4. Today 3.4. follow up with Dr. Rai. DW and RN Subjective Subjective Had Exploratory Laparotomy and resection of anastomosis with anastomosis of small bowel to colon last night by Dr Murrieta..Extubated today. In ICU. RN and at bedside. Abdominal drain still in place. Objective Last 24 Hour Vital Signs Date Time Temp Pulse Resp B/P Pulse Ox O2 Delivery O2 Flow Rate FiO2 08/03/16 15:00 80 22 131/77 99 Nasal Cannula 2.0 08/03/16 14:00 85 22 130/69 100 Nasal Cannula 2.0 08/03/16 13:00 78 21 120/69 100 Nasal Cannula 2.0 08/03/16 12:00 20 08/03/16 12:00 98.1 78 21 131/85 100 Nasal Cannula 2.0 08/03/16 12:00 77 08/03/16 11:00 78 21 136/86 100 Nasal Cannula 2.0 08/03/16 10:56 98 20 100 08/03/16 10:10 92 143/90 08/03/16 10:10 92 143/90 08/03/16 10:00 79 21 146/90 100 Nasal Cannula 2.0 08/03/16 09:00 85 24 139/71 100 Nasal Cannula 2.0 08/03/16 08:00 98.5 99 20 141/56 100 Nasal Cannula 2.0 08/03/16 08:00 23 08/03/16 08:00 84 08/03/16 07:08 97 Nasal Cannula 2.0 08/03/16 07:06 Nasal Cannula 2.0 08/03/16 07:00 107 20 148/79 100 Nasal Cannula 2.0 08/03/16 06:00 94 20 141/86 100 Nasal Cannula 2.0 08/03/16 05:00 96 22 141/86 100 Nasal Cannula 2.0 08/03/16 04:00 98.1 96 22 141/86 100 Nasal Cannula 2.0 08/03/16 04:00 95 08/03/16 04:00 12 08/03/16 03:00 92 18 168/106 100 Nasal Cannula 2.0 08/03/16 02:15 12 08/03/16 02:00 94 20 161/87 100 Nasal Cannula 2.0 08/03/16 01:00 93 19 136/84 100 Nasal Cannula 2.0 08/03/16 00:27 94 08/03/16 00:20 21 08/03/16 00:08 98.9 95 23 145/82 100 Nasal Cannula 2.0 08/03/16 00:05 22 08/02/16 23:50 93 20 130/82 99 Simple Mask 8.0 08/02/16 23:50 20 08/02/16 23:39 18 08/02/16 23:39 94 20 135/85 99 Simple Mask 8.0 08/02/16 23:33 95 20 139/84 100 Simple Mask 8.0 08/02/16 23:25 84 22 99 08/02/16 23:22 97 20 139/84 100 Simple Mask 8.0 08/02/16 23:17 100 20 126/79 100 Simple Mask 8.0 08/02/16 23:15 100 20 126/79 100 Simple Mask 8.0 08/02/16 23:12 99.6 108 20 133/79 100 Simple Mask 8.0 08/02/16 21:00 95 144/85 08/02/16 21:00 96 144/85 08/02/16 20:00 98.6 82 19 155/91 97 Room Air 08/02/16 16:13 97.7 76 18 123/73 99 Room Air Intake and Output 08/02/16 08/03/16 19:00 07:00 Intake Total 630 ml 2227.5 ml Output Total 80 ml 1035 ml Balance 550 ml 1192.5 ml Intake Oral 480 ml IV Total 150 ml 1727.5 ml Other 500 ml Output Urine Total 835 ml Drainage Total 80 ml 50 ml Estimated Blood Loss 150 ml # Voids 3 # Bowel Movements 3 Laboratory Tests Test 08/03/16 04:00 White Blood Count 15.9 K/UL (4.8-10.8) H Red Blood Count 2.72 M/UL (4.70-6.10) L Hemoglobin 8.3 G/DL (14.2-18.0) L Hematocrit 25.2 % (42.0-52.0) L Mean Corpuscular Volume 93 FL (80-99) Mean Corpuscular Hemoglobin 30.7 PG (27.0-31.0) Mean Corpuscular Hemoglobin Concent 33.1 G/DL (32.0-36.0) Red Cell Distribution Width 12.4 % (11.6-14.8) Platelet Count 290 K/UL (150-450) Mean Platelet Volume 6.4 FL (6.5-10.1) L Neutrophils (%) (Auto) 84.2 % (45.0-75.0) H Lymphocytes (%) (Auto) 4.6 % (20.0-45.0) L Monocytes (%) (Auto) 8.1 % (1.0-10.0) Eosinophils (%) (Auto) 2.5 % (0.0-3.0) Basophils (%) (Auto) 0.6 % (0.0-2.0) Sodium Level 140 mEQ/L (135-145) Potassium Level 3.5 mEQ/L (3.4-4.9) Chloride Level 105 mEQ/L (98-107) Carbon Dioxide Level 21 mEQ/L (20-30) Anion Gap 14 (5-15) Blood Urea Nitrogen 40 mg/dL (7-23) H Creatinine 3.4 mg/dL (0.7-1.2) H Estimat Glomerular Filtration Rate 18.3 mL/min (>60) Glucose Level 250 mg/dL (74-106) H Calcium Level 7.0 mg/dL (8.6-10.2) L Microbiology Date/Time Source Procedure Growth Status 08/01/16 20:12 Blood Blood Culture - Preliminary NO GROWTH AFTER 24 HOURS Resulted 08/01/16 20:00 Blood Blood Culture - Preliminary NO GROWTH AFTER 24 HOURS Resulted 08/01/16 18:00 Stool Clostridium difficile Toxin Assay - Final Complete Objective HEAD AND NECK: No JVD. LUNGS: Clear CARDIOVASCULAR: Nl S1 and S2 with no gallop or murmur. ABDOMEN: Post median laparotomy. DAKOTA drain still draining. EXTREMITIES: No pitting edema. HONEY DUKE Aug 03, 2016 15:27
--- NOTE | 2016-08-03 17:40 | Infectious Diseases Prog Note ---
Assessment/Plan Problems: (1) Septic shock Assessment & Plan: with persistent leukocytosis while on zosyn and clindamycin , was switched zyvox and zosyn, repeated blood culture is pending, stool for C diff is negative , abdominal fluids culture showed no growth. CT ABD/ PELVIS showed anastomosis leak, S/P surgical revision (2) SBO (small bowel obstruction) Assessment & Plan: S/P EX LAP , has ileus post OP, now with persistent abdominal pain, due to anastomosis leak, S/P revision , continue IVF, and pain management , general surgery is following (3) Abdominal pain Assessment & Plan: continue pain management, surgery is following (4) MIGNON (acute kidney injury) Assessment & Plan: due to sepsis and hypotension, continue IVF, titrate to keep SBP >100, renal is following (5) Ileus Assessment & Plan: due to repeated EXP LAP, continue IVF, and NGT suctioning , surgery is following Subjective Constitutional: Reports: fatigue Respiratory: Reports: dry cough Gastrointestinal/Abdominal: Reports: bloating, constipation, other - abdominal pain Allergies: Coded Allergies: No Known Allergies (Unverified , 07/26/16) All Systems: reviewed and negative except above Subjective he had bowel movement today bloody, no fever or chills, no cough or SOB, has more abdominal pain today , tolerated liquid diet Objective Vital Signs Last 24 Hour Vital Signs Date Time Temp Pulse Resp B/P Pulse Ox O2 Delivery O2 Flow Rate FiO2 08/03/16 17:00 80 21 123/72 100 Nasal Cannula 2.0 08/03/16 16:00 99.0 82 20 132/76 100 Nasal Cannula 2.0 08/03/16 16:00 20 08/03/16 16:00 82 08/03/16 15:00 80 22 131/77 99 Nasal Cannula 2.0 08/03/16 14:00 85 22 130/69 100 Nasal Cannula 2.0 08/03/16 13:00 78 21 120/69 100 Nasal Cannula 2.0 08/03/16 12:00 20 08/03/16 12:00 98.1 78 21 131/85 100 Nasal Cannula 2.0 08/03/16 12:00 77 08/03/16 11:00 78 21 136/86 100 Nasal Cannula 2.0 08/03/16 10:56 98 20 100 08/03/16 10:10 92 143/90 1/19/17 10:10 92 143/90 08/03/16 10:00 79 21 146/90 100 Nasal Cannula 2.0 08/03/16 09:00 85 24 139/71 100 Nasal Cannula 2.0 08/03/16 08:00 98.5 99 20 141/56 100 Nasal Cannula 2.0 08/03/16 08:00 23 08/03/16 08:00 84 08/03/16 07:08 97 Nasal Cannula 2.0 08/03/16 07:06 Nasal Cannula 2.0 08/03/16 07:00 107 20 148/79 100 Nasal Cannula 2.0 08/03/16 06:00 94 20 141/86 100 Nasal Cannula 2.0 08/03/16 05:00 96 22 141/86 100 Nasal Cannula 2.0 08/03/16 04:00 98.1 96 22 141/86 100 Nasal Cannula 2.0 08/03/16 04:00 95 08/03/16 04:00 12 08/03/16 03:00 92 18 168/106 100 Nasal Cannula 2.0 08/03/16 02:15 12 08/03/16 02:00 94 20 161/87 100 Nasal Cannula 2.0 08/03/16 01:00 93 19 136/84 100 Nasal Cannula 2.0 08/03/16 00:27 94 08/03/16 00:20 21 08/03/16 00:08 98.9 95 23 145/82 100 Nasal Cannula 2.0 08/03/16 00:05 22 08/02/16 23:50 93 20 130/82 99 Simple Mask 8.0 08/02/16 23:50 20 08/02/16 23:39 18 08/02/16 23:39 94 20 135/85 99 Simple Mask 8.0 08/02/16 23:33 95 20 139/84 100 Simple Mask 8.0 08/02/16 23:25 84 22 99 08/02/16 23:22 97 20 139/84 100 Simple Mask 8.0 08/02/16 23:17 100 20 126/79 100 Simple Mask 8.0 08/02/16 23:15 100 20 126/79 100 Simple Mask 8.0 08/02/16 23:12 99.6 108 20 133/79 100 Simple Mask 8.0 08/02/16 21:00 95 144/85 08/02/16 21:00 96 144/85 08/02/16 20:00 98.6 82 19 155/91 97 Room Air General Appearance: WD/WN, no acute distress HEENT: normocephalic, atraumatic, anicteric, mucous membranes moist Respiratory/Chest: chest wall non-tender, lungs clear, normal breath sounds, no respiratory distress, no accessory muscle use, decreased breath sounds, crackles/rales Cardiovascular: normal peripheral pulses, normal rate, regular rhythm, no gallop/murmur Abdomen: no organomegaly, no mass, absent bowel sounds, distended, tender, other - surgical wound covered with dressing, with two DAKOTA drainages in place Extremities: no cyanosis, no clubbing Skin: no rash, no lesions, no ulcers Microbiology Date/Time Source Procedure Growth Status 08/01/16 20:12 Blood Blood Culture - Preliminary NO GROWTH AFTER 24 HOURS Resulted 08/01/16 20:00 Blood Blood Culture - Preliminary NO GROWTH AFTER 24 HOURS Resulted 08/01/16 18:00 Stool Clostridium difficile Toxin Assay - Final Complete Laboratory Tests Test 08/03/16 04:00 White Blood Count 15.9 K/UL (4.8-10.8) H Red Blood Count 2.72 M/UL (4.70-6.10) L Hemoglobin 8.3 G/DL (14.2-18.0) L Hematocrit 25.2 % (42.0-52.0) L Mean Corpuscular Volume 93 FL (80-99) Mean Corpuscular Hemoglobin 30.7 PG (27.0-31.0) Mean Corpuscular Hemoglobin Concent 33.1 G/DL (32.0-36.0) Red Cell Distribution Width 12.4 % (11.6-14.8) Platelet Count 290 K/UL (150-450) Mean Platelet Volume 6.4 FL (6.5-10.1) L Neutrophils (%) (Auto) 84.2 % (45.0-75.0) H Lymphocytes (%) (Auto) 4.6 % (20.0-45.0) L Monocytes (%) (Auto) 8.1 % (1.0-10.0) Eosinophils (%) (Auto) 2.5 % (0.0-3.0) Basophils (%) (Auto) 0.6 % (0.0-2.0) Sodium Level 140 mEQ/L (135-145) Potassium Level 3.5 mEQ/L (3.4-4.9) Chloride Level 105 mEQ/L (98-107) Carbon Dioxide Level 21 mEQ/L (20-30) Anion Gap 14 (5-15) Blood Urea Nitrogen 40 mg/dL (7-23) H Creatinine 3.4 mg/dL (0.7-1.2) H Estimat Glomerular Filtration Rate 18.3 mL/min (>60) Glucose Level 250 mg/dL (74-106) H Calcium Level 7.0 mg/dL (8.6-10.2) L Current Medications Medications (Trade) Dose Ordered Sig/Arti Route PRN Reason Start Time Stop Time Status Last Admin Dose Admin Acetaminophen 650 mg 650 mg Q4H PRN RECTAL FEVER>100.5 08/03/16 08:40 09/02/16 08:39 Amlodipine Besylate (Norvasc) 5 mg Q12HR ORAL 08/03/16 10:00 09/02/16 09:59 08/03/16 10:10 Dextrose (D10w) 1,000 ml @ 0 mls/hr Q24H PRN IV PN interrupted or unavailable 08/03/16 21:00 09/02/16 20:59 Dextrose (Dextrose 50%) STAT PRN IV Hypoglycemia 08/03/16 10:00 09/02/16 09:59 Dextrose/Sodium Chloride 1,000 ml @ 100 mls/hr Q10H IV 08/03/16 10:30 08/03/16 20:59 08/03/16 10:09 Diphenhydramine HCl (Benadryl) 25 mg Q6H PRN IVP Itching/Pruritis 08/03/16 10:30 08/05/16 10:29 Enoxaparin Sodium (Lovenox) 30 mg DAILY SUBQ 08/03/16 10:00 09/02/16 09:59 08/03/16 10:23 Fat Emulsion Intravenous 240 ml/Amino Acids/ Electrolytes/ Dextrose 2,232 ml @ 93 mls/hr Q24H IV 08/03/16 21:00 09/02/16 20:59 Hydromorphone HCl (Dilaudid) 0.5 mg Q3H PRN IVP Pain Score 1-3 08/05/16 10:30 08/12/16 10:29 Hydromorphone HCl (Dilaudid) 1 mg Q3H PRN IVP pain score 4-6 08/05/16 10:30 08/12/16 10:29 Hydromorphone HCl (Dilaudid) 2 mg Q3H PRN IVP pain score 7-10 08/05/16 10:30 08/12/16 10:29 Hydromorphone HCl (Dilaudid) 2 mg Q4H PRN IVP Moderate Pain (Pain Scale 4-6) 08/03/16 10:30 08/05/16 10:29 Hydromorphone HCl (Dilaudid) 2 mg q3h PRN SUBQ Severe Pain (Pain Scale 7-10) 08/03/16 10:30 08/05/16 10:29 Hydromorphone HCl (EVENT REPRESENTATIVE Dilaudid) 30 ml @ 0 mls/hr Q24H PRN IV For Pain 08/03/16 10:30 08/05/16 10:29 08/03/16 10:24 Insulin Aspart (NovoLOG) No Dose Q6HR SUBQ 08/04/16 00:00 09/03/16 00:00 Linezolid (Zyvox) 300 ml @ 300 mls/hr Q12HR@0600,1800 IVPB 08/03/16 18:00 08/10/16 17:59 08/03/16 17:34 Metoprolol Tartrate (Lopressor) 25 mg Q12HR ORAL 08/03/16 10:00 09/02/16 09:59 08/03/16 10:10 Miscellaneous Medication (EVENT REPRESENTATIVE Rate Change) 1 ea DAILY PRN MISC rate change 08/03/16 10:30 08/05/16 10:29 Miscellaneous Medication 1 ea 1 ea Q8HR@07,15,23 MISC 08/03/16 15:00 08/05/16 14:59 08/03/16 15:30 Naloxone HCl (Narcan) 0.1 mg Q1M PRN IVP RR<10/min OR SBP<90 mmHg 08/03/16 10:30 08/05/16 10:29 Ondansetron HCl (Zofran) 4 mg Q6H PRN IVP Nausea & Vomiting 08/03/16 09:00 09/02/16 08:59 Pantoprazole 40 mg 40 mg DAILY IVP 08/03/16 09:00 09/02/16 08:59 08/03/16 09:00 Piperacillin Sod/ Tazobactam Sod/ Dextrose (Zosyn/D5W) 110 ml @ 27.5 mls/hr EVERY 8 HOURS IVPB 08/03/16 10:00 08/08/16 09:59 08/03/16 16:59 Simethicone (Mylicon) 80 mg QIDPRN PRN NG GAS PAIN 08/03/16 09:30 09/02/16 09:29 Tamsulosin HCl (Flomax) 0.4 mg BEDTIME ORAL 08/03/16 21:00 09/02/16 20:59 Temazepam 7.5 mg 7.5 mg HSPRN PRN ORAL Insomnia 08/03/16 20:00 08/05/16 19:59 Piyush Harris M.D. Aug 03, 2016 17:40
--- NOTE | 2016-08-03 17:44 | 48 Hour Post Anesthesia Eval ---
Post Anesthesia Evaluation Procedure: Exploratory laparotomy partial bowel resection Date of Evaluation: Aug 03, 2016 Time of Evaluation: 13:15 Blood Pressure Systolic: 120 0: 69 Pulse Rate: 78 Respiratory Rate: 21 Temperature (Fahrenheit): 98.1 O2 Sat by Pulse Oximetry: 100 Airway: patent Nausea: No Vomiting: No Pain Intensity: 2 Hydration Status: adequate Cardiopulmonary Status: at baseline Mental Status/LOC: patient returned to baseline Post-Anesthesia Complications: 0 Follow-up care needed: N/A - further care as per primary team MARC BARTLETT M.D. Aug 03, 2016 17:44
[2016-08-03] MEDS ORDERED: Fat Emulsion Iv 20% 250 ML IV SCH (21:00)
[2016-08-03] MEDS ORDERED: Tamsulosin 0.4mg cap ORAL SCH (21:00)
[2016-08-03] MEDS ORDERED: Dextrose 10% 1,000 ML IV PRN ×2 (21:00)
[2016-08-03] MEDS ORDERED: Fat Emulsion Iv 20% 240 ML in Tpn 1,992 ML IV SCH ×4 (21:00)
[2016-08-03] MEDS: Tamsulosin 0.4mg cap ORAL SCH (21:12)
--- NOTE | 2016-08-03 22:54 | General Progress Note ---
Assessment/Plan Assessment/Plan Assessment - SBO / gangrene - resected - septic shock - recovered - ATN - improved - abnormal LFT - ? shocked liver - lactic acidosis - improved - s/p ex lap for anastomotic leak - azotemia Recommendations IVF NPO abx PPI follow labs and exam surgical f/u Subjective Allergies: Coded Allergies: No Known Allergies (Unverified , 07/26/16) Subjective patient seen earlier today in ICU d/w son at bedside c/o some wound pain Objective Last 24 Hour Vital Signs Date Time Temp Pulse Resp B/P Pulse Ox O2 Delivery O2 Flow Rate FiO2 08/03/16 21:15 83 139/81 08/03/16 21:14 83 139/81 08/03/16 20:00 98.2 83 19 139/81 100 Nasal Cannula 2.0 08/03/16 20:00 20 08/03/16 19:26 20 08/03/16 19:00 84 18 135/72 100 Nasal Cannula 2.0 08/03/16 18:00 85 18 130/74 100 Nasal Cannula 2.0 08/03/16 17:44 78 21 100 08/03/16 17:00 80 21 123/72 100 Nasal Cannula 2.0 08/03/16 16:00 99.0 82 20 132/76 100 Nasal Cannula 2.0 08/03/16 16:00 20 08/03/16 16:00 82 08/03/16 15:00 80 22 131/77 99 Nasal Cannula 2.0 08/03/16 14:00 85 22 130/69 100 Nasal Cannula 2.0 08/03/16 13:00 78 21 120/69 100 Nasal Cannula 2.0 08/03/16 12:00 20 08/03/16 12:00 98.1 78 21 131/85 100 Nasal Cannula 2.0 08/03/16 12:00 77 08/03/16 11:00 78 21 136/86 100 Nasal Cannula 2.0 08/03/16 10:56 98 20 100 08/03/16 10:10 92 143/90 08/03/16 10:10 92 143/90 08/03/16 10:00 79 21 146/90 100 Nasal Cannula 2.0 08/03/16 09:00 85 24 139/71 100 Nasal Cannula 2.0 08/03/16 08:00 98.5 99 20 141/56 100 Nasal Cannula 2.0 08/03/16 08:00 23 08/03/16 08:00 84 08/03/16 07:08 97 Nasal Cannula 2.0 08/03/16 07:06 Nasal Cannula 2.0 08/03/16 07:00 107 20 148/79 100 Nasal Cannula 2.0 08/03/16 06:00 94 20 141/86 100 Nasal Cannula 2.0 08/03/16 05:00 96 22 141/86 100 Nasal Cannula 2.0 08/03/16 04:00 98.1 96 22 141/86 100 Nasal Cannula 2.0 08/03/16 04:00 95 08/03/16 04:00 12 08/03/16 03:00 92 18 168/106 100 Nasal Cannula 2.0 08/03/16 02:15 12 08/03/16 02:00 94 20 161/87 100 Nasal Cannula 2.0 08/03/16 01:00 93 19 136/84 100 Nasal Cannula 2.0 08/03/16 00:27 94 08/03/16 00:20 21 08/03/16 00:08 98.9 95 23 145/82 100 Nasal Cannula 2.0 08/03/16 00:05 22 08/02/16 23:50 93 20 130/82 99 Simple Mask 8.0 08/02/16 23:50 20 08/02/16 23:39 18 08/02/16 23:39 94 20 135/85 99 Simple Mask 8.0 08/02/16 23:33 95 20 139/84 100 Simple Mask 8.0 08/02/16 23:25 84 22 99 08/02/16 23:22 97 20 139/84 100 Simple Mask 8.0 08/02/16 23:17 100 20 126/79 100 Simple Mask 8.0 08/02/16 23:15 100 20 126/79 100 Simple Mask 8.0 08/02/16 23:12 99.6 108 20 133/79 100 Simple Mask 8.0 Intake and Output 08/02/16 08/03/16 19:00 07:00 Intake Total 630 ml 2227.5 ml Output Total 80 ml 1035 ml Balance 550 ml 1192.5 ml Intake Oral 480 ml IV Total 150 ml 1727.5 ml Other 500 ml Output Urine Total 835 ml Drainage Total 80 ml 50 ml Estimated Blood Loss 150 ml # Voids 3 # Bowel Movements 3 Laboratory Tests 08/03/16 04:00: White Blood Count 15.9H, Red Blood Count 2.72L, Hemoglobin 8.3L, Hematocrit 25.2L, Mean Corpuscular Volume 93, Mean Corpuscular Hemoglobin 30.7, Mean Corpuscular Hemoglobin Concent 33.1, Red Cell Distribution Width 12.4, Platelet Count 290, Mean Platelet Volume 6.4L, Neutrophils (%) (Auto) 84.2H, Lymphocytes (%) (Auto) 4.6L, Monocytes (%) (Auto) 8.1, Eosinophils (%) (Auto) 2.5, Basophils (%) (Auto) 0.6, Sodium Level 140, Potassium Level 3.5, Chloride Level 105, Carbon Dioxide Level 21, Anion Gap 14, Blood Urea Nitrogen 40H, Creatinine 3.4H, Estimat Glomerular Filtration Rate 18.3, Glucose Level 250H, Calcium Level 7.0L Objective WDWN man NCAT supple CTA RR abd distended, (+)large abd wound, dressing dry no edema ALVAREZ MARTINEZ Aug 03, 2016 22:54
--- NOTE | 2016-08-03 23:42 | General Progress Note ---
Assessment/Plan Assessment/Plan ASSESSMENT: 1. Leukocytosis Likely 2/2 underlying sepsis vs reactive. improved from yesterday. 2. 5. Small bowel obstruction. status post exploratory laparotomy; s/p resection 3. Anemia 2/2 chronic disease, does not require iron 4. Sepsis, likely contributing to leukocytosis. 5. Abdominal pain due to small bowel obstruction. 6. . Anemia 2/2 hemodilution 7. Platelet counts is improved. RECOMMENDATIONS: 1. Monitor wbc counts 2. Have reviewed anemia workup, does not need iron 3. Follow up on Surgery, ID recs. 5. Transfuse if hgb <7. 6. DVT ppx lovenox 7. GI ppx ppi 8. staff Thank you, Andrew Mendez MD Subjective Constitutional: Reports: no symptoms HEENT: Reports: no symptoms Respiratory: Reports: no symptoms Gastrointestinal/Abdominal: Reports: abdominal pain, no symptoms Genitourinary: Reports: no symptoms 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: Reports: no symptoms Hematologic/Lymphatic: Reports: anemia Allergies: Coded Allergies: No Known Allergies (Unverified , 07/26/16) Subjective no bleeding reported.no hematochezia or hematemesis Objective Last 24 Hour Vital Signs Date Time Temp Pulse Resp B/P Pulse Ox O2 Delivery O2 Flow Rate FiO2 08/03/16 21:15 83 139/81 08/03/16 21:14 83 139/81 08/03/16 20:00 98.2 83 19 139/81 100 Nasal Cannula 2.0 08/03/16 20:00 20 08/03/16 19:26 20 08/03/16 19:00 84 18 135/72 100 Nasal Cannula 2.0 08/03/16 18:00 85 18 130/74 100 Nasal Cannula 2.0 08/03/16 17:44 78 21 100 08/03/16 17:00 80 21 123/72 100 Nasal Cannula 2.0 08/03/16 16:00 99.0 82 20 132/76 100 Nasal Cannula 2.0 08/03/16 16:00 20 08/03/16 16:00 82 08/03/16 15:00 80 22 131/77 99 Nasal Cannula 2.0 08/03/16 14:00 85 22 130/69 100 Nasal Cannula 2.0 08/03/16 13:00 78 21 120/69 100 Nasal Cannula 2.0 08/03/16 12:00 20 08/03/16 12:00 98.1 78 21 131/85 100 Nasal Cannula 2.0 08/03/16 12:00 77 08/03/16 11:00 78 21 136/86 100 Nasal Cannula 2.0 08/03/16 10:56 98 20 100 08/03/16 10:10 92 143/90 08/03/16 10:10 92 143/90 08/03/16 10:00 79 21 146/90 100 Nasal Cannula 2.0 08/03/16 09:00 85 24 139/71 100 Nasal Cannula 2.0 08/03/16 08:00 98.5 99 20 141/56 100 Nasal Cannula 2.0 08/03/16 08:00 23 08/03/16 08:00 84 Intake and Output 08/03/16 08/03/16 11:00 23:00 Intake Total 2655.0 ml 960.0 ml Output Total 1995 ml 925 ml Balance 660.0 ml 35.0 ml IV Total 2155.0 ml 960.0 ml Other 500 ml Output Urine Total 1795 ml 865 ml Drainage Total 50 ml 60 ml Estimated Blood Loss 150 ml Laboratory Tests 08/03/16 04:00: White Blood Count 15.9H, Red Blood Count 2.72L, Hemoglobin 8.3L, Hematocrit 25.2L, Mean Corpuscular Volume 93, Mean Corpuscular Hemoglobin 30.7, Mean Corpuscular Hemoglobin Concent 33.1, Red Cell Distribution Width 12.4, Platelet Count 290, Mean Platelet Volume 6.4L, Neutrophils (%) (Auto) 84.2H, Lymphocytes (%) (Auto) 4.6L, Monocytes (%) (Auto) 8.1, Eosinophils (%) (Auto) 2.5, Basophils (%) (Auto) 0.6, Sodium Level 140, Potassium Level 3.5, Chloride Level 105, Carbon Dioxide Level 21, Anion Gap 14, Blood Urea Nitrogen 40H, Creatinine 3.4H, Estimat Glomerular Filtration Rate 18.3, Glucose Level 250H, Calcium Level 7.0L General Appearance: no apparent distress EENT: PERRL/EOMI, normal ENT inspection Neck: supple Cardiovascular: normal rate Respiratory/Chest: lungs clear, no respiratory distress Abdomen: non tender Edema: 1+ Leg (L), 1+ Leg (R) Skin: warm/dry Andrew Mendez Aug 03, 2016 23:42
[2016-08-04] MEDS ORDERED: Insulin NovoLOG Flexpen S/S (insulin sensitive) SUBQ SCH
[2016-08-04] MEDS: NovoLOG Insulin Flexpen SUBQ SCH ×4 (00:20→18:44)
[2016-08-04 04:00] VITALS: BP 137/81
[2016-08-04] MEDS: Piperacillin/Tazobactam 3.375 GM in D5W 110 ML IVPB SCH (06:21)
[2016-08-04] MEDS: PCA shift volume MISC SCH (07:00)
[2016-08-04 08:00] VITALS: BP 145/87
[2016-08-04 08:56] LABS: MEAN CORPUSCULAR HEMOGLOBIN 30.5 PG (27.0-31.0); MEAN CORPUSCULAR HGB CONC 33.6 G/DL (32.0-36.0); MEAN CORPUSCULAR VOLUME 91 FL (80-99); MEAN PLATELET VOLUME 6.7 FL (6.5-10.1); PLATELET COUNT 371 K/UL (150-450); RED BLOOD COUNT 2.81 M/UL (4.70-6.10); RED CELL DISTRIBUTION WIDTH 12.5 % (11.6-14.8)
--- NOTE | 2016-08-04 09:06 | General Progress Note ---
Assessment/Plan Assessment/Plan ASSESSMENT: 1. Leukocytosis Likely 2/2 underlying sepsis vs reactive.Has improved from yesterday. 2. Small bowel obstruction. status post exploratory laparotomy; s/p resection 3. Anemia 2/2 chronic disease, does not require iron 4. Sepsis, likely contributing to leukocytosis. 5. Abdominal pain due to small bowel obstruction. 6. Anemia 2/2 hemodilution 7. Thrombocytopenia - better RECOMMENDATIONS: 1. Monitor wbc counts 2. Have reviewed anemia workup, does not need iron 3. Follow up on Surgery, ID recs. 5. Transfuse if hgb <7. 6. DVT ppx lovenox 7. GI ppx ppi 8. DW staff Thank you, Andrew Mendez MD Subjective Constitutional: Reports: no symptoms HEENT: Reports: no symptoms Cardiovascular: Reports: no symptoms Respiratory: Reports: no symptoms Gastrointestinal/Abdominal: Reports: poor appetite Genitourinary: Reports: no symptoms 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: Reports: no symptoms Endocrine: Reports: no symptoms Hematologic/Lymphatic: Reports: anemia Allergies: Coded Allergies: No Known Allergies (Unverified , 07/26/16) Subjective no bleeding reported.without hematochezia or hematemesis Objective Last 24 Hour Vital Signs Date Time Temp Pulse Resp B/P Pulse Ox O2 Delivery O2 Flow Rate FiO2 08/04/16 08:17 18 08/04/16 04:00 97.9 77 21 137/81 99 Room Air 08/04/16 04:00 18 08/04/16 00:00 19 08/03/16 23:51 98.1 72 20 138/81 100 Room Air 08/03/16 21:15 83 139/81 08/03/16 21:14 83 139/81 08/03/16 20:00 98.2 83 19 139/81 100 Nasal Cannula 2.0 08/03/16 20:00 20 08/03/16 19:26 20 08/03/16 19:00 84 18 135/72 100 Nasal Cannula 2.0 08/03/16 18:00 85 18 130/74 100 Nasal Cannula 2.0 08/03/16 17:44 78 21 100 08/03/16 17:00 80 21 123/72 100 Nasal Cannula 2.0 08/03/16 16:00 99.0 82 20 132/76 100 Nasal Cannula 2.0 1/19/17 16:00 20 08/03/16 16:00 82 08/03/16 15:00 80 22 131/77 99 Nasal Cannula 2.0 08/03/16 14:00 85 22 130/69 100 Nasal Cannula 2.0 08/03/16 13:00 78 21 120/69 100 Nasal Cannula 2.0 08/03/16 12:00 20 08/03/16 12:00 98.1 78 21 131/85 100 Nasal Cannula 2.0 08/03/16 12:00 77 08/03/16 11:00 78 21 136/86 100 Nasal Cannula 2.0 08/03/16 10:56 98 20 100 08/03/16 10:10 92 143/90 08/03/16 10:10 92 143/90 08/03/16 10:00 79 21 146/90 100 Nasal Cannula 2.0 Intake and Output 08/03/16 08/04/16 19:00 07:00 Intake Total 1487.5 ml 680.0 ml Output Total 1865 ml 1840 ml Balance -377.5 ml -1160.0 ml IV Total 1487.5 ml 680.0 ml Output Urine Total 1825 ml 1800 ml Drainage Total 40 ml 40 ml Laboratory Tests 08/04/16 08:15: White Blood Count 24.0#*H, Red Blood Count 2.81L, Hemoglobin 8.6L, Hematocrit 25.5L, Mean Corpuscular Volume 91, Mean Corpuscular Hemoglobin 30.5, Mean Corpuscular Hemoglobin Concent 33.6, Red Cell Distribution Width 12.5, Platelet Count 371, Mean Platelet Volume 6.7, Neutrophils (%) (Auto) , Lymphocytes (%) ( Auto) , Monocytes (%) (Auto) , Eosinophils (%) (Auto) , Basophils (%) (Auto) , Neutrophils % (Manual) [Pending], Lymphocytes % (Manual) [Pending], Platelet Estimate [Pending], Platelet Morphology [Pending], Sodium Level [Pending], Potassium Level [Pending], Chloride Level [Pending], Carbon Dioxide Level [ Pending], Blood Urea Nitrogen [Pending], Creatinine [Pending], Estimat Glomerular Filtration Rate [Pending], Glucose Level [Pending], Uric Acid [ Pending], Calcium Level [Pending], Phosphorus Level [Pending], Magnesium Level [ Pending], Total Bilirubin [Pending], Gamma Glutamyl Transpeptidase [Pending], Aspartate Amino Transf (AST/SGOT) [Pending], Alanine Aminotransferase (ALT/SGPT ) [Pending], Alkaline Phosphatase [Pending], Total Protein [Pending], Albumin [ Pending], Globulin [Pending] General Appearance: no apparent distress EENT: TMs normal Neck: supple Cardiovascular: normal rate Respiratory/Chest: chest wall non-tender Abdomen: no mass Extremities: non-tender Edema: no edema noted Leg (L), no edema noted Leg (R) Edema: mild edema Neurologic: alert Skin: warm/dry Andrew Mendez Aug 04, 2016 09:06
[2016-08-04] MEDS ORDERED: DuoNeb 0.5-3(2.5)mg/3ml neb HHN PRN (09:30)
[2016-08-04 09:33] LABS: ALBUMIN/GLOBULIN RATIO 0.8 (1.0-2.7); CALCIUM 7.4 mg/dL (8.6-10.2); CREATININE 3.3 mg/dL (0.7-1.2); GLOMERULAR FILTRATION RATE 18.9 mL/min (>60); MAGNESIUM 1.9 mg/dL (1.7-2.5); PHOSPHORUS 3.5 mg/dL (2.5-4.8); POTASSIUM 3.6 mEQ/L (3.4-4.9); TOTAL PROTEIN 5.2 g/dL (6.6-8.7); URIC ACID 4.7 mg/dL (3.0-7.5)
--- NOTE | 2016-08-04 09:37 | Pulmonology Progress Note ---
Assessment/Plan Assessment/Plan ASSESSMENT septic shock- resolved sepsis 2 to SBO and gangrenous bowel SBP with gangrenous bowel intubated for surgery s/p extubation MIGNON 2 to sepsis s/p1/ exp lap and lysis of adhesion anastomosis leak s/p 08/02 exp lap and resection of anastomosis with anastomosis of SB to colon NSTEMI HTN anemia abnormal LFT PLAN OF CARE [facility] floor TPN and lipids surgery and GI follow abx, ID follows blood cx, stool C dif, abdominal fluid cx all negative O2, HHN prn encourage IS q1 , explained to daughter rationale for it pain management with SENIOR ANALYTIC CONSULTANT elevated troponin likely 2 to demand ischemia- per cardio,. last troponin 0.33 ECG -no ischemic pattern ECHO with preserved EF, no evidence of pulmonary HTN BP management with CCB and BB, no LINNEA due to MIGNON renal parameters with small improvement, IVF, nephro follows avoid nephrotoxic, monitor renal parameters and lytes urology eval noted ( due to low UO), improved, imaging - no evidence of kidney, prostate or bladder pathology, Canales was dc when pt was on tele will check PVR today if high - reinsert Canales trend LFT anemia workup noted, no need for iron - per heme,. follows monitor HH, transfuse prn case discussed and evaluated by supervising physician Subjective Allergies: Coded Allergies: No Known Allergies (Unverified , 07/26/16) Subjective off presors on [facility] floor afebrile, leukocytosis up to 24 denies pain, but admits to pressure in abdominal area not passing gas yet using SENIOR ANALYTIC CONSULTANT sparingly no n/v/ denies SOB, chest pain daughter at the bedside Objective Last 24 Hour Vital Signs Date Time Temp Pulse Resp B/P Pulse Ox O2 Delivery O2 Flow Rate FiO2 08/04/16 08:17 18 08/04/16 08:00 98.1 79 20 145/87 100 Nasal Cannula 2.0 08/04/16 04:00 97.9 77 21 137/81 99 Room Air 08/04/16 04:00 18 08/04/16 00:00 19 08/03/16 23:51 98.1 72 20 138/81 100 Room Air 08/03/16 21:15 83 139/81 08/03/16 21:14 83 139/81 08/03/16 20:00 98.2 83 19 139/81 100 Nasal Cannula 2.0 08/03/16 20:00 20 08/03/16 19:26 20 08/03/16 19:00 84 18 135/72 100 Nasal Cannula 2.0 08/03/16 18:00 85 18 130/74 100 Nasal Cannula 2.0 08/03/16 17:44 78 21 100 08/03/16 17:00 80 21 123/72 100 Nasal Cannula 2.0 08/03/16 16:00 99.0 82 20 132/76 100 Nasal Cannula 2.0 08/03/16 16:00 20 08/03/16 16:00 82 08/03/16 15:00 80 22 131/77 99 Nasal Cannula 2.0 08/03/16 14:00 85 22 130/69 100 Nasal Cannula 2.0 08/03/16 13:00 78 21 120/69 100 Nasal Cannula 2.0 08/03/16 12:00 20 08/03/16 12:00 98.1 78 21 131/85 100 Nasal Cannula 2.0 08/03/16 12:00 77 08/03/16 11:00 78 21 136/86 100 Nasal Cannula 2.0 08/03/16 10:56 98 20 100 08/03/16 10:10 92 143/90 08/03/16 10:10 92 143/90 08/03/16 10:00 79 21 146/90 100 Nasal Cannula 2.0 Intake and Output 08/03/16 08/04/16 19:00 07:00 Intake Total 1487.5 ml 680.0 ml Output Total 1865 ml 1840 ml Balance -377.5 ml -1160.0 ml IV Total 1487.5 ml 680.0 ml Output Urine Total 1825 ml 1800 ml Drainage Total 40 ml 40 ml General Appearance: no acute distress, other - awake, alert, oriented [place]ian spekaing male in NAD HEENT: normocephalic, atraumatic, anicteric, PERRL, EOMI, supple, no JVD, other - O2 via NC , NGT to LIS Respiratory/Chest: chest wall non-tender, lungs clear, no respiratory distress , no accessory muscle use Cardiovascular: normal peripheral pulses, normal rate, regular rhythm, no JVD Abdomen: other - abdomen soft, mild distention, mild tenderness, no BS, abdominal dressing C/D/I, [place] x 2 with scant amount of serous drainage Genitourinary: normal external genitalia Extremities: no edema, pedal pulses normal 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: no motor/sensory deficits, alert, oriented x 3, responsive Musculoskeletal: normal muscle bulk Microbiology Date/Time Source Procedure Growth Status 08/01/16 20:12 Blood Blood Culture - Preliminary NO GROWTH AFTER 48 HOURS Resulted 08/01/16 20:00 Blood Blood Culture - Preliminary NO GROWTH AFTER 48 HOURS Resulted 08/01/16 18:00 Stool Clostridium difficile Toxin Assay - Final Complete Laboratory Tests 08/04/16 08:15: White Blood Count 24.0#*H, Red Blood Count 2.81L, Hemoglobin 8.6L, Hematocrit 25.5L, Mean Corpuscular Volume 91, Mean Corpuscular Hemoglobin 30.5, Mean Corpuscular Hemoglobin Concent 33.6, Red Cell Distribution Width 12.5, Platelet Count 371, Mean Platelet Volume 6.7, Neutrophils (%) (Auto) , Lymphocytes (%) ( Auto) , Monocytes (%) (Auto) , Eosinophils (%) (Auto) , Basophils (%) (Auto) , Neutrophils % (Manual) [Pending], Lymphocytes % (Manual) [Pending], Platelet Estimate [Pending], Platelet Morphology [Pending], Sodium Level [Pending], Potassium Level [Pending], Chloride Level [Pending], Carbon Dioxide Level [ Pending], Blood Urea Nitrogen [Pending], Creatinine [Pending], Estimat Glomerular Filtration Rate [Pending], Glucose Level [Pending], Uric Acid [ Pending], Calcium Level [Pending], Phosphorus Level [Pending], Magnesium Level [ Pending], Total Bilirubin [Pending], Gamma Glutamyl Transpeptidase [Pending], Aspartate Amino Transf (AST/SGOT) [Pending], Alanine Aminotransferase (ALT/SGPT ) [Pending], Alkaline Phosphatase [Pending], Total Protein [Pending], Albumin [ Pending], Globulin [Pending] Current Medications Medications (Trade) Dose Ordered Sig/Arti Route PRN Reason Start Time Stop Time Status Last Admin Dose Admin Acetaminophen (Tylenol) 650 mg Q4H PRN RECTAL FEVER>100.5 08/03/16 19:00 09/02/16 18:59 Amlodipine Besylate (Norvasc) 5 mg Q12HR ORAL 08/03/16 21:00 09/02/16 20:59 08/03/16 21:14 Dextrose 1,000 ml @ 0 mls/hr Q24H PRN IV PN interrupted or unavailable 08/03/16 21:00 09/02/16 20:59 Dextrose (Dextrose 50%) STAT PRN IV Hypoglycemia 08/03/16 19:00 09/02/16 18:59 Diphenhydramine HCl (Benadryl) 25 mg Q6H PRN IVP Itching/Pruritis 08/03/16 19:00 08/05/16 18:59 Enoxaparin Sodium (Lovenox) 30 mg DAILY SUBQ 08/04/16 09:00 09/03/16 08:59 Fat Emulsion Intravenous 240 ml/Amino Acids/ Electrolytes/ Dextrose 2,232 ml @ 93 mls/hr Q24H IV 08/03/16 21:00 09/02/16 20:59 08/03/16 21:44 Hydromorphone HCl 30 ml @ 0 mls/hr Q24H PRN IV For Pain 08/03/16 19:00 08/05/16 18:59 Hydromorphone HCl (Dilaudid) 0.5 mg Q3H PRN IVP Pain Score 1-3 08/03/16 19:30 08/10/16 19:29 Hydromorphone HCl (Dilaudid) 1 mg Q3H PRN IVP pain score 4-6 08/05/16 10:30 08/12/16 10:29 Hydromorphone HCl (Dilaudid) 2 mg Q3H PRN IVP pain score 7-10 08/05/16 10:30 08/12/16 10:29 Insulin Aspart (NovoLOG) No Dose Q6HR SUBQ 08/04/16 00:00 09/03/16 00:00 08/04/16 06:23 Linezolid 300 ml @ 300 mls/hr Q12HR@0600,1800 IVPB 08/04/16 06:00 08/09/16 05:59 08/04/16 05:04 Metoprolol Tartrate (Lopressor) 25 mg Q12HR ORAL 08/03/16 21:00 09/02/16 20:59 08/03/16 21:15 Miscellaneous Medication (SENIOR ANALYTIC CONSULTANT Rate Change) 1 ea DAILY PRN MISC rate change 08/03/16 19:00 08/05/16 18:59 Miscellaneous Medication (SENIOR ANALYTIC CONSULTANT shift volume) 1 ea Q8HR@07,15,23 MISC 08/03/16 23:00 08/05/16 22:59 08/04/16 07:00 Naloxone HCl (Narcan) 0.1 mg Q1M PRN IVP RR<10/min OR SBP<90 mmHg 08/03/16 19:00 08/05/16 18:59 Ondansetron HCl (Zofran) 4 mg Q6H PRN IVP Nausea & Vomiting 08/03/16 19:10 09/02/16 19:09 Pantoprazole (Protonix) 40 mg DAILY IVP 08/04/16 09:00 09/03/16 08:59 Piperacillin Sod/ Tazobactam Sod/ Dextrose (Zosyn/D5W) 110 ml @ 27.5 mls/hr EVERY 8 HOURS IVPB 08/03/16 22:00 08/08/16 21:59 08/04/16 06:21 Simethicone (Mylicon) 80 mg QIDPRN PRN NG GAS PAIN 08/03/16 19:00 09/02/16 18:59 Tamsulosin HCl (Flomax) 0.4 mg BEDTIME ORAL 08/03/16 21:00 09/02/16 20:59 08/03/16 21:12 Temazepam (Restoril) 7.5 mg HSPRN PRN ORAL Insomnia 08/03/16 20:00 08/10/16 19:59 Tess Javed NP (Vanchtein) Aug 04, 2016 09:37
[2016-08-04] MEDS: Metoprolol 25mg tab ORAL SCH ×2 (09:43→21:56)
[2016-08-04] MEDS: Enoxaparin 30mg Inj SUBQ SCH (09:45)
[2016-08-04] MEDS: Pantoprazole Inj IVP SCH (09:46)
[2016-08-04 10:59] LABS: BAND NEUTROPHILS % (MANUAL) 1 % (0-8); BASOPHILS % (MANUAL) 0 % (0-2); EOSINOPHILS % (MANUAL) 4 % (0-3); LYMPHOCYTES % (MANUAL) 8 % (20-45); NEUTROPHILS % (MANUAL) 78 % (45-75); PLATELET ESTIMATE ADEQUATE; PLATELET MORPHOLOGY NORMAL; TOTAL CELLS COUNTED 100
[2016-08-04 11:00] LABS: HYPOCHROMASIA 1+
--- NOTE | 2016-08-04 11:11 | General Progress Note ---
Assessment/Plan Assessment/Plan (1) Small bowel obstruction (2) Intractable abdominal pain (3) Gangrene of the small bowel (4) S/p Exploratory Laparotomy resection of the small bowel with primary anastomosis Pt will be continued on Dilaudid.RX for Percocet 10/325mg 20 tabs was written for pt in anticipation for discharge. Pt was d/w Dr. Aguirre and he concurred. Subjective Date patient seen: Aug 04, 2016 Time patient seen: 10:00 - am Allergies: Coded Allergies: No Known Allergies (Unverified , 07/26/16) Subjective Constitutional: Reports: weakness, Denies: chills, diaphoresis, fever, malaise HEENT: Denies: blurred vision, double vision, ear discharge, ear pain, eye pain , mouth pain, mouth swelling, nose congestion, nose pain, tearing, throat pain, throat swelling Cardiovascular: Denies: chest pain, edema, irregular heart rate, lightheadedness, palpitations, syncope Respiratory: Denies: SOB at rest, SOB with exertion, cough, orthopnea, sputum, stridor, wheezing Gastrointestinal/Abdominal: Reports: abdomen distended, abdominal pain Denies: black stools, blood in stool, constipated, diarrhea, difficulty swallowing, poor appetite, poor fluid intake, rectal bleeding, tarry stools, vomiting Genitourinary: Denies: burning, discharge, flank pain, frequency, hematuria, incontinence, pain, urgency 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: Reports: weakness, Denies: anxiety, depressed, emotional problems, headache, numbness, paresthesia, pre-existing deficit, seizure, tingling, tremors Endocrine: Denies: excessive sweating, flushing, increased hunger, increased thirst, increased urine, intolerance to cold, intolerance to heat, unexplained weight gain, unexplained weight loss Hematologic/Lymphatic: Denies: anemia, easy bleeding, easy bruising Subjective Pt has been transferred to med/surg floor. 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 Pt reports that pain is mild however is c/o gas pressure. Objective Last 24 Hour Vital Signs Date Time Temp Pulse Resp B/P Pulse Ox O2 Delivery O2 Flow Rate FiO2 08/04/16 09:45 79 145/87 08/04/16 09:43 79 145/87 08/04/16 08:17 18 08/04/16 08:00 98.1 79 20 145/87 100 Nasal Cannula 2.0 08/04/16 06:44 99 Nasal Cannula 2.0 08/04/16 06:43 Nasal Cannula 2.0 08/04/16 04:00 97.9 77 21 137/81 99 Room Air 08/04/16 04:00 18 08/04/16 00:00 19 08/03/16 23:51 98.1 72 20 138/81 100 Room Air 08/03/16 21:15 83 139/81 08/03/16 21:14 83 139/81 08/03/16 20:00 98.2 83 19 139/81 100 Nasal Cannula 2.0 08/03/16 20:00 20 08/03/16 19:26 20 08/03/16 19:00 84 18 135/72 100 Nasal Cannula 2.0 08/03/16 18:00 85 18 130/74 100 Nasal Cannula 2.0 08/03/16 17:44 78 21 100 08/03/16 17:00 80 21 123/72 100 Nasal Cannula 2.0 08/03/16 16:00 99.0 82 20 132/76 100 Nasal Cannula 2.0 08/03/16 16:00 20 08/03/16 16:00 82 08/03/16 15:00 80 22 131/77 99 Nasal Cannula 2.0 08/03/16 14:00 85 22 130/69 100 Nasal Cannula 2.0 08/03/16 13:00 78 21 120/69 100 Nasal Cannula 2.0 08/03/16 12:00 20 08/03/16 12:00 98.1 78 21 131/85 100 Nasal Cannula 2.0 08/03/16 12:00 77 Intake and Output 08/03/16 08/04/16 19:00 07:00 Intake Total 1487.5 ml 680.0 ml Output Total 1865 ml 1840 ml Balance -377.5 ml -1160.0 ml IV Total 1487.5 ml 680.0 ml Output Urine Total 1825 ml 1800 ml Drainage Total 40 ml 40 ml Laboratory Tests 08/04/16 08:15: White Blood Count 24.0#*H, Red Blood Count 2.81L, Hemoglobin 8.6L, Hematocrit 25.5L, Mean Corpuscular Volume 91, Mean Corpuscular Hemoglobin 30.5, Mean Corpuscular Hemoglobin Concent 33.6, Red Cell Distribution Width 12.5, Platelet Count 371, Mean Platelet Volume 6.7, Neutrophils (%) (Auto) , Lymphocytes (%) ( Auto) , Monocytes (%) (Auto) , Eosinophils (%) (Auto) , Basophils (%) (Auto) , Differential Total Cells Counted 100, Neutrophils % (Manual) 78H, Lymphocytes % (Manual) 8L, Monocytes % (Manual) 9, Eosinophils % (Manual) 4H, Basophils % ( Manual) 0, Band Neutrophils 1, Platelet Estimate Adequate, Platelet Morphology Normal, Hypochromasia 1+, Sodium Level 144, Potassium Level 3.6, Chloride Level 107, Carbon Dioxide Level 22, Anion Gap 15, Blood Urea Nitrogen 33H, Creatinine 3.3H, Estimat Glomerular Filtration Rate 18.9, Glucose Level 207H, Uric Acid 4.7 , Calcium Level 7.4L, Phosphorus Level 3.5, Magnesium Level 1.9, Total Bilirubin 0.9, Gamma Glutamyl Transpeptidase 190H, Aspartate Amino Transf (AST/ SGOT) 14, Alanine Aminotransferase (ALT/SGPT) 31, Alkaline Phosphatase 150H, Total Protein 5.2L, Albumin 2.4L, Globulin 2.8, Albumin/Globulin Ratio 0.8L Objective General Appearance: alert EENT: PERRL/EOMI, NG tube seen Neck: non-tender, supple Cardiovascular: normal rate, regular rhythm Respiratory/Chest: lungs clear Abdomen: other - tenderness to palpation bandages applied Extremities: normal inspection Neurologic: alert, responsive Skin: warm/dry SHA BOSE Aug 04, 2016 11:11
--- NOTE | 2016-08-04 11:21 | General Progress Note ---
Assessment/Plan Problem List: (1) Ileus ICD Codes: K56.7 - Ileus, unspecified SNOMED: 434557106 (2) Sepsis ICD Codes: A41.9 - Sepsis, unspecified organism SNOMED: 38883237 (3) Abdominal pain ICD Codes: R10.9 - Unspecified abdominal pain SNOMED: 02617906 (4) SBO (small bowel obstruction) ICD Codes: K56.69 - Other intestinal obstruction SNOMED: 853187428 (5) Abdominal gas pain ICD Codes: R14.1 - Gas pain SNOMED: 51790869 (6) Enteritis ICD Codes: K52.9 - Noninfective gastroenteritis and colitis, unspecified SNOMED: 86271832 Status: progressing Assessment/Plan sbo s/p another exploratory lap by dr zee for possible anasamosis leak in icu has abdominal pain sepsis shock still has abdominal pain afebrile abx per id Subjective ROS Limited/Unobtainable: Yes Constitutional: Reports: no symptoms Allergies: Coded Allergies: No Known Allergies (Unverified , 07/26/16) Objective Last 24 Hour Vital Signs Date Time Temp Pulse Resp B/P Pulse Ox O2 Delivery O2 Flow Rate FiO2 08/04/16 09:45 79 145/87 08/04/16 09:43 79 145/87 08/04/16 08:17 18 08/04/16 08:00 98.1 79 20 145/87 100 Nasal Cannula 2.0 08/04/16 06:44 99 Nasal Cannula 2.0 08/04/16 06:43 Nasal Cannula 2.0 08/04/16 04:00 97.9 77 21 137/81 99 Room Air 08/04/16 04:00 18 08/04/16 00:00 19 08/03/16 23:51 98.1 72 20 138/81 100 Room Air 08/03/16 21:15 83 139/81 08/03/16 21:14 83 139/81 08/03/16 20:00 98.2 83 19 139/81 100 Nasal Cannula 2.0 08/03/16 20:00 20 08/03/16 19:26 20 08/03/16 19:00 84 18 135/72 100 Nasal Cannula 2.0 08/03/16 18:00 85 18 130/74 100 Nasal Cannula 2.0 08/03/16 17:44 78 21 100 08/03/16 17:00 80 21 123/72 100 Nasal Cannula 2.0 08/03/16 16:00 99.0 82 20 132/76 100 Nasal Cannula 2.0 08/03/16 16:00 20 08/03/16 16:00 82 08/03/16 15:00 80 22 131/77 99 Nasal Cannula 2.0 08/03/16 14:00 85 22 130/69 100 Nasal Cannula 2.0 08/03/16 13:00 78 21 120/69 100 Nasal Cannula 2.0 08/03/16 12:00 20 08/03/16 12:00 98.1 78 21 131/85 100 Nasal Cannula 2.0 08/03/16 12:00 77 Intake and Output 08/03/16 08/04/16 19:00 07:00 Intake Total 1487.5 ml 680.0 ml Output Total 1865 ml 1840 ml Balance -377.5 ml -1160.0 ml IV Total 1487.5 ml 680.0 ml Output Urine Total 1825 ml 1800 ml Drainage Total 40 ml 40 ml Laboratory Tests 08/04/16 08:15: White Blood Count 24.0#*H, Red Blood Count 2.81L, Hemoglobin 8.6L, Hematocrit 25.5L, Mean Corpuscular Volume 91, Mean Corpuscular Hemoglobin 30.5, Mean Corpuscular Hemoglobin Concent 33.6, Red Cell Distribution Width 12.5, Platelet Count 371, Mean Platelet Volume 6.7, Neutrophils (%) (Auto) , Lymphocytes (%) ( Auto) , Monocytes (%) (Auto) , Eosinophils (%) (Auto) , Basophils (%) (Auto) , Differential Total Cells Counted 100, Neutrophils % (Manual) 78H, Lymphocytes % (Manual) 8L, Monocytes % (Manual) 9, Eosinophils % (Manual) 4H, Basophils % ( Manual) 0, Band Neutrophils 1, Platelet Estimate Adequate, Platelet Morphology Normal, Hypochromasia 1+, Sodium Level 144, Potassium Level 3.6, Chloride Level 107, Carbon Dioxide Level 22, Anion Gap 15, Blood Urea Nitrogen 33H, Creatinine 3.3H, Estimat Glomerular Filtration Rate 18.9, Glucose Level 207H, Uric Acid 4.7 , Calcium Level 7.4L, Phosphorus Level 3.5, Magnesium Level 1.9, Total Bilirubin 0.9, Gamma Glutamyl Transpeptidase 190H, Aspartate Amino Transf (AST/ SGOT) 14, Alanine Aminotransferase (ALT/SGPT) 31, Alkaline Phosphatase 150H, Total Protein 5.2L, Albumin 2.4L, Globulin 2.8, Albumin/Globulin Ratio 0.8L EENT: TMs normal Neck: supple Cardiovascular: normal rate Respiratory/Chest: lungs clear Abdomen: soft Teo Love MD Aug 04, 2016 11:21
[2016-08-04] MEDS ORDERED: Fat Emulsion Iv 20% 240 ML in Tpn 1,992 ML IV SCH (11:30)
[2016-08-04 12:00] VITALS: BP 133/79
--- NOTE | 2016-08-04 12:59 | General Surgery Progress Note ---
General Surgery-Progress Note Subjective Procedure Performed Exploratory Laparotomy and resection of anastomosis with anstomosis of small bowel to colon Symptoms: improved Objective Last 24 Hour Vital Signs Date Time Temp Pulse Resp B/P Pulse Ox O2 Delivery O2 Flow Rate FiO2 08/04/16 09:45 79 145/87 08/04/16 09:43 79 145/87 08/04/16 08:17 18 08/04/16 08:00 98.1 79 20 145/87 100 Nasal Cannula 2.0 08/04/16 06:44 99 Nasal Cannula 2.0 08/04/16 06:43 Nasal Cannula 2.0 08/04/16 04:00 97.9 77 21 137/81 99 Room Air 08/04/16 04:00 18 08/04/16 00:00 19 08/03/16 23:51 98.1 72 20 138/81 100 Room Air 08/03/16 21:15 83 139/81 08/03/16 21:14 83 139/81 08/03/16 20:00 98.2 83 19 139/81 100 Nasal Cannula 2.0 08/03/16 20:00 20 08/03/16 19:26 20 08/03/16 19:00 84 18 135/72 100 Nasal Cannula 2.0 08/03/16 18:00 85 18 130/74 100 Nasal Cannula 2.0 08/03/16 17:44 78 21 100 08/03/16 17:00 80 21 123/72 100 Nasal Cannula 2.0 08/03/16 16:00 99.0 82 20 132/76 100 Nasal Cannula 2.0 08/03/16 16:00 20 08/03/16 16:00 82 08/03/16 15:00 80 22 131/77 99 Nasal Cannula 2.0 08/03/16 14:00 85 22 130/69 100 Nasal Cannula 2.0 08/03/16 13:00 78 21 120/69 100 Nasal Cannula 2.0 I&O Intake and Output 08/03/16 08/04/16 18:59 06:59 Intake Total 1815.0 ml 780.0 ml Output Total 1850 ml 1965 ml Balance -35.0 ml -1185.0 ml IV Total 1815.0 ml 780.0 ml Output Urine Total 1760 ml 1925 ml Drainage Total 90 ml 40 ml Dressing: dry Drains: curtis Respiratory: clear Abdomen: soft, flat, tenderness, absent bowel sounds Extremities: edema, no tenderness Laboratory Tests Test 08/04/16 08:15 White Blood Count 24.0 K/UL (4.8-10.8) #*H Red Blood Count 2.81 M/UL (4.70-6.10) L Hemoglobin 8.6 G/DL (14.2-18.0) L Hematocrit 25.5 % (42.0-52.0) L Mean Corpuscular Volume 91 FL (80-99) Mean Corpuscular Hemoglobin 30.5 PG (27.0-31.0) Mean Corpuscular Hemoglobin Concent 33.6 G/DL (32.0-36.0) Red Cell Distribution Width 12.5 % (11.6-14.8) Platelet Count 371 K/UL (150-450) Mean Platelet Volume 6.7 FL (6.5-10.1) Neutrophils (%) (Auto) % (45.0-75.0) Lymphocytes (%) (Auto) % (20.0-45.0) Monocytes (%) (Auto) % (1.0-10.0) Eosinophils (%) (Auto) % (0.0-3.0) Basophils (%) (Auto) % (0.0-2.0) Differential Total Cells Counted 100 Neutrophils % (Manual) 78 % (45-75) H Lymphocytes % (Manual) 8 % (20-45) L Monocytes % (Manual) 9 % (1-10) Eosinophils % (Manual) 4 % (0-3) H Basophils % (Manual) 0 % (0-2) Band Neutrophils 1 % (0-8) Platelet Estimate Adequate Platelet Morphology Normal Hypochromasia 1+ Sodium Level 144 mEQ/L (135-145) Potassium Level 3.6 mEQ/L (3.4-4.9) Chloride Level 107 mEQ/L (98-107) Carbon Dioxide Level 22 mEQ/L (20-30) Anion Gap 15 (5-15) Blood Urea Nitrogen 33 mg/dL (7-23) H Creatinine 3.3 mg/dL (0.7-1.2) H Estimat Glomerular Filtration Rate 18.9 mL/min (>60) Glucose Level 207 mg/dL (74-106) H Uric Acid 4.7 mg/dL (3.0-7.5) Calcium Level 7.4 mg/dL (8.6-10.2) L Phosphorus Level 3.5 mg/dL (2.5-4.8) Magnesium Level 1.9 mg/dL (1.7-2.5) Total Bilirubin 0.9 mg/dL (0.0-1.2) Gamma Glutamyl Transpeptidase 190 U/L (8-61) H Aspartate Amino Transf (AST/SGOT) 14 U/L (5-40) Alanine Aminotransferase (ALT/SGPT) 31 U/L (3-41) Alkaline Phosphatase 150 U/L (40-129) H Total Protein 5.2 g/dL (6.6-8.7) L Albumin 2.4 g/dL (3.5-5.2) L Globulin 2.8 g/dL Albumin/Globulin Ratio 0.8 (1.0-2.7) L Assessment Post-op Diagnosis anastomosis leakage Additional Comments wbc is 24K Plan Additional Comments Continue IV Antibiotics NPO On TPN EDWIN NOGUEIRA Aug 04, 2016 12:59
[2016-08-04 14:27] LABS: APPEARANCE,URINE CLEAR; KETONES,URINE NEGATIVE (NEGATIVE); LEUKOCYTE ESTERASE ,URINE NEGATIVE (NEGATIVE); NITRITE,URINE NEGATIVE (NEGATIVE); PH,URINE 5 (4.5-8.0); PROTEIN,URINE 2+ (NEGATIVE); UROBILINOGEN,URINE NORMAL MG/DL (0.0-1.0)
[2016-08-04 14:38] LABS: AMORPHOUS SEDIMENT,UR FEW /LPF; BACTERIA,URINE FEW /HPF; SQUAMOUS EPITHELIAL CELL,UR OCCASIONAL /LPF (NONE/OCC); WBC,URINE 0-2 /HPF (0 - 0)
[2016-08-04] MEDS: Zosyn 2.25 gm in D5W 55ml IV SCH ×2 (14:54→21:56)
--- NOTE | 2016-08-04 15:22 | Diagnostic Imaging Report ---
Indications: Shortness of breath Technique: Portable AP chest Findings: Comparison: 08/02/2016 Cardiac silhouette remains normal in size. Pulmonary vasculature remains within normal limits. Elevation of the apparent hemidiaphragm persists. Linear densities persist in both lung bases. Lungs and pleura remain otherwise clear. Nasogastric tube has been placed, tip in the region of the proximal aspect of the stomach. IMPRESSION: Nasogastric tube tip in stomach Persistent pulmonary bibasal subsegmental atelectasis No new abnormality
[2016-08-04 16:00] VITALS: BP 138/85
--- NOTE | 2016-08-04 16:17 | General Progress Note ---
Assessment/Plan Status: unchanged Assessment/Plan status: Septic Shock leading to acute renal failure- Cr peaked 4.8 now down to 3.3 Abdominal Surgery 07/26/16 then again 05/27 and revison 08/02 Plan; on TPN post op care- Antibiotics- Protonix IV monitor renal parameters- discussed with son in law Subjective ROS Limited/Unobtainable: No Constitutional: Reports: malaise Allergies: Coded Allergies: No Known Allergies (Unverified , 07/26/16) Objective Last 24 Hour Vital Signs Date Time Temp Pulse Resp B/P Pulse Ox O2 Delivery O2 Flow Rate FiO2 08/04/16 16:00 99.3 82 20 138/85 99 Room Air 08/04/16 12:00 98.4 72 20 133/79 98 Room Air 08/04/16 09:45 79 145/87 08/04/16 09:43 79 145/87 08/04/16 08:17 18 08/04/16 08:00 98.1 79 20 145/87 100 Nasal Cannula 2.0 08/04/16 06:44 99 Nasal Cannula 2.0 08/04/16 06:43 Nasal Cannula 2.0 08/04/16 04:00 97.9 77 21 137/81 99 Room Air 08/04/16 04:00 18 08/04/16 00:00 19 08/03/16 23:51 98.1 72 20 138/81 100 Room Air 08/03/16 21:15 83 139/81 08/03/16 21:14 83 139/81 08/03/16 20:00 98.2 83 19 139/81 100 Nasal Cannula 2.0 08/03/16 20:00 20 08/03/16 19:26 20 08/03/16 19:00 84 18 135/72 100 Nasal Cannula 2.0 08/03/16 18:00 85 18 130/74 100 Nasal Cannula 2.0 08/03/16 17:44 78 21 100 08/03/16 17:00 80 21 123/72 100 Nasal Cannula 2.0 Intake and Output 08/03/16 08/04/16 19:00 07:00 Intake Total 1487.5 ml 773.0 ml Output Total 1865 ml 1840 ml Balance -377.5 ml -1067.0 ml IV Total 1487.5 ml 773.0 ml Output Urine Total 1825 ml 1800 ml Drainage Total 40 ml 40 ml Laboratory Tests 08/04/16 08:15: White Blood Count 24.0#*H, Red Blood Count 2.81L, Hemoglobin 8.6L, Hematocrit 25.5L, Mean Corpuscular Volume 91, Mean Corpuscular Hemoglobin 30.5, Mean Corpuscular Hemoglobin Concent 33.6, Red Cell Distribution Width 12.5, Platelet Count 371, Mean Platelet Volume 6.7, Neutrophils (%) (Auto) , Lymphocytes (%) ( Auto) , Monocytes (%) (Auto) , Eosinophils (%) (Auto) , Basophils (%) (Auto) , Differential Total Cells Counted 100, Neutrophils % (Manual) 78H, Lymphocytes % (Manual) 8L, Monocytes % (Manual) 9, Eosinophils % (Manual) 4H, Basophils % ( Manual) 0, Band Neutrophils 1, Platelet Estimate Adequate, Platelet Morphology Normal, Hypochromasia 1+, Sodium Level 144, Potassium Level 3.6, Chloride Level 107, Carbon Dioxide Level 22, Anion Gap 15, Blood Urea Nitrogen 33H, Creatinine 3.3H, Estimat Glomerular Filtration Rate 18.9, Glucose Level 207H, Uric Acid 4.7 , Calcium Level 7.4L, Phosphorus Level 3.5, Magnesium Level 1.9, Total Bilirubin 0.9, Gamma Glutamyl Transpeptidase 190H, Aspartate Amino Transf (AST/ SGOT) 14, Alanine Aminotransferase (ALT/SGPT) 31, Alkaline Phosphatase 150H, Total Protein 5.2L, Albumin 2.4L, Globulin 2.8, Albumin/Globulin Ratio 0.8L 08/04/16 14:00: Urine Color Yellow, Urine Appearance Clear, Urine pH 5, Urine Specific [place] 1.010, Urine Protein 2+H, Urine Glucose (UA) 2+H, Urine Ketones Negative, Urine Occult Blood 2+H, Urine Nitrite Negative, Urine Bilirubin Negative, Urine Urobilinogen Normal, Urine Leukocyte Esterase Negative, Urine RBC 2-4H, Urine WBC 0-2, Urine Squamous Epithelial Cells Occasional, Urine Amorphous Sediment FewH, Urine Bacteria Few General Appearance: no apparent distress EENT: other - has NGT Cardiovascular: regular rhythm Respiratory/Chest: decreased breath sounds Abdomen: distended Objective no other changes in PE REBECCA SCHULTE Aug 04, 2016 16:17
--- NOTE | 2016-08-04 16:17 | Cardiac Electrophysiology PN ---
Assessment/Plan Assessment/Plan 1. NSTEMI with elevated troponin due to demand ischemia vs renal failure. ECG non ischemic. Troponin 1.3 to 0.33. Echo NL EF.Continue Lopressor 25 bid.No chest pain. 2. S/P Septic shock due to small bowel obstruction and gangrene. Off pressors.On iv fluid and antibiotics.WBC increased 24K. 3. HTN. DC Norvasc. Continue Lopressor 25 bid. Avoid ACEI or ARB for renal failure 4. Small bowel obstruction status post laparotomy and small bowel resection. S/ P 3rd surgery on 08/02/16. Follow up Dr [place]ri[place]. 5. Respiratory failure. Extubated 6. Renal failure, creatinine 4.4. Today 3.3 DW , son and RN Subjective Subjective Transferred out of ICU. Son and at bedside. Abdominal drain still in place.Sat in the chair earlier. No chest pain or SOB. Objective Last 24 Hour Vital Signs Date Time Temp Pulse Resp B/P Pulse Ox O2 Delivery O2 Flow Rate FiO2 08/04/16 12:00 98.4 72 20 133/79 98 Room Air 08/04/16 09:45 79 145/87 08/04/16 09:43 79 145/87 08/04/16 08:17 18 08/04/16 08:00 98.1 79 20 145/87 100 Nasal Cannula 2.0 08/04/16 06:44 99 Nasal Cannula 2.0 08/04/16 06:43 Nasal Cannula 2.0 08/04/16 04:00 97.9 77 21 137/81 99 Room Air 08/04/16 04:00 18 08/04/16 00:00 19 08/03/16 23:51 98.1 72 20 138/81 100 Room Air 08/03/16 21:15 83 139/81 08/03/16 21:14 83 139/81 08/03/16 20:00 98.2 83 19 139/81 100 Nasal Cannula 2.0 08/03/16 20:00 20 08/03/16 19:26 20 08/03/16 19:00 84 18 135/72 100 Nasal Cannula 2.0 08/03/16 18:00 85 18 130/74 100 Nasal Cannula 2.0 08/03/16 17:44 78 21 100 08/03/16 17:00 80 21 123/72 100 Nasal Cannula 2.0 Intake and Output 08/03/16 08/04/16 19:00 07:00 Intake Total 1487.5 ml 773.0 ml Output Total 1865 ml 1840 ml Balance -377.5 ml -1067.0 ml IV Total 1487.5 ml 773.0 ml Output Urine Total 1825 ml 1800 ml Drainage Total 40 ml 40 ml Laboratory Tests Test 08/04/16 08:15 08/04/16 14:00 White Blood Count 24.0 K/UL (4.8-10.8) #*H Red Blood Count 2.81 M/UL (4.70-6.10) L Hemoglobin 8.6 G/DL (14.2-18.0) L Hematocrit 25.5 % (42.0-52.0) L Mean Corpuscular Volume 91 FL (80-99) Mean Corpuscular Hemoglobin 30.5 PG (27.0-31.0) Mean Corpuscular Hemoglobin Concent 33.6 G/DL (32.0-36.0) Red Cell Distribution Width 12.5 % (11.6-14.8) Platelet Count 371 K/UL (150-450) Mean Platelet Volume 6.7 FL (6.5-10.1) Neutrophils (%) (Auto) % (45.0-75.0) Lymphocytes (%) (Auto) % (20.0-45.0) Monocytes (%) (Auto) % (1.0-10.0) Eosinophils (%) (Auto) % (0.0-3.0) Basophils (%) (Auto) % (0.0-2.0) Differential Total Cells Counted 100 Neutrophils % (Manual) 78 % (45-75) H Lymphocytes % (Manual) 8 % (20-45) L Monocytes % (Manual) 9 % (1-10) Eosinophils % (Manual) 4 % (0-3) H Basophils % (Manual) 0 % (0-2) Band Neutrophils 1 % (0-8) Platelet Estimate Adequate Platelet Morphology Normal Hypochromasia 1+ Sodium Level 144 mEQ/L (135-145) Potassium Level 3.6 mEQ/L (3.4-4.9) Chloride Level 107 mEQ/L (98-107) Carbon Dioxide Level 22 mEQ/L (20-30) Anion Gap 15 (5-15) Blood Urea Nitrogen 33 mg/dL (7-23) H Creatinine 3.3 mg/dL (0.7-1.2) H Estimat Glomerular Filtration Rate 18.9 mL/min (>60) Glucose Level 207 mg/dL (74-106) H Uric Acid 4.7 mg/dL (3.0-7.5) Calcium Level 7.4 mg/dL (8.6-10.2) L Phosphorus Level 3.5 mg/dL (2.5-4.8) Magnesium Level 1.9 mg/dL (1.7-2.5) Total Bilirubin 0.9 mg/dL (0.0-1.2) Gamma Glutamyl Transpeptidase 190 U/L (8-61) H Aspartate Amino Transf (AST/SGOT) 14 U/L (5-40) Alanine Aminotransferase (ALT/SGPT) 31 U/L (3-41) Alkaline Phosphatase 150 U/L (40-129) H Total Protein 5.2 g/dL (6.6-8.7) L Albumin 2.4 g/dL (3.5-5.2) L Globulin 2.8 g/dL Albumin/Globulin Ratio 0.8 (1.0-2.7) L Urine Color Yellow Urine Appearance Clear Urine pH 5 (4.5-8.0) Urine Specific [place] 1.010 (1.005-1.035) Urine Protein 2+ (NEGATIVE) H Urine Glucose (UA) 2+ (NEGATIVE) H Urine Ketones Negative (NEGATIVE) Urine Occult Blood 2+ (NEGATIVE) H Urine Nitrite Negative (NEGATIVE) Urine Bilirubin Negative (NEGATIVE) Urine Urobilinogen Normal MG/DL (0.0-1.0) Urine Leukocyte Esterase Negative (NEGATIVE) Urine RBC 2-4 /HPF (0 - 0) H Urine WBC 0-2 /HPF (0 - 0) Urine Squamous Epithelial Cells Occasional /LPF Urine Amorphous Sediment Few /LPF (NONE) H Urine Bacteria Few /HPF (NONE) Microbiology Date/Time Source Procedure Growth Status 08/01/16 20:12 Blood Blood Culture - Preliminary NO GROWTH AFTER 48 HOURS Resulted 08/01/16 20:00 Blood Blood Culture - Preliminary NO GROWTH AFTER 48 HOURS Resulted 08/01/16 18:00 Stool Clostridium difficile Toxin Assay - Final Complete Objective HEAD AND NECK: No JVD. LUNGS: Clear CARDIOVASCULAR: Nl S1 and S2 with no gallop or murmur. ABDOMEN: Post median laparotomy. DAKOTA drain still draining. EXTREMITIES: No pitting edema. HONEY DUKE Aug 04, 2016 16:17
[2016-08-04] MEDS: Hydromorphone 0.5mg/0.5ml inj IVP PRN (16:55)
--- NOTE | 2016-08-04 17:07 | Infectious Diseases Prog Note ---
Assessment/Plan Problems: (1) Septic shock Assessment & Plan: with persistent leukocytosis on zyvox and zosyn, S/P three EXP LAP, complicated with anastomosis leak , S/P revision, will repeated blood culture , UA and CXR, leukocytosis is most likely due to surgical wound, will continue current regimen and monitor WBC. stool for C diff is negative , abdominal fluids culture showed no growth. (2) SBO (small bowel obstruction) Assessment & Plan: S/P EX LAP X3 , has ileus post OP, now with persistent abdominal pain, due to anastomosis leak, S/P revision , continue IVF, and pain management , general surgery is following (3) Abdominal pain Assessment & Plan: continue pain management, surgery is following (4) MIGNON (acute kidney injury) Assessment & Plan: due to sepsis and hypotension, continue IVF, titrate to keep SBP >100, renal is following (5) Ileus Assessment & Plan: due to repeated EXP LAP, continue IVF, and NGT suctioning , surgery is following Subjective Constitutional: Reports: anorexia, fatigue Gastrointestinal/Abdominal: Reports: bloating, other - pain Allergies: Coded Allergies: No Known Allergies (Unverified , 07/26/16) Subjective he had bowel movement today bloody, no fever or chills, no cough or SOB, has more abdominal pain today , tolerated liquid diet Objective Vital Signs Last 24 Hour Vital Signs Date Time Temp Pulse Resp B/P Pulse Ox O2 Delivery O2 Flow Rate FiO2 08/04/16 16:00 99.3 82 20 138/85 99 Room Air 08/04/16 12:00 98.4 72 20 133/79 98 Room Air 08/04/16 09:45 79 145/87 08/04/16 09:43 79 145/87 08/04/16 08:17 18 08/04/16 08:00 98.1 79 20 145/87 100 Nasal Cannula 2.0 08/04/16 06:44 99 Nasal Cannula 2.0 08/04/16 06:43 Nasal Cannula 2.0 08/04/16 04:00 97.9 77 21 137/81 99 Room Air 08/04/16 04:00 18 08/04/16 00:00 19 08/03/16 23:51 98.1 72 20 138/81 100 Room Air 08/03/16 21:15 83 139/81 08/03/16 21:14 83 139/81 08/03/16 20:00 98.2 83 19 139/81 100 Nasal Cannula 2.0 08/03/16 20:00 20 08/03/16 19:26 20 08/03/16 19:00 84 18 135/72 100 Nasal Cannula 2.0 08/03/16 18:00 85 18 130/74 100 Nasal Cannula 2.0 08/03/16 17:44 78 21 100 General Appearance: WD/WN, no acute distress HEENT: normocephalic, atraumatic, anicteric, mucous membranes moist Respiratory/Chest: chest wall non-tender, normal breath sounds, no respiratory distress, no accessory muscle use, decreased breath sounds Cardiovascular: normal peripheral pulses, normal rate, regular rhythm, no gallop/murmur Abdomen: no organomegaly, non distended, no mass, hypoactive bowel sounds, distended, tender, other - midline surgical wound with two DAKOTA drainage. Genitourinary: normal external genitalia Extremities: no cyanosis, no clubbing Skin: no rash, no ulcers Microbiology Date/Time Source Procedure Growth Status 08/01/16 20:12 Blood Blood Culture - Preliminary NO GROWTH AFTER 48 HOURS Resulted 08/01/16 20:00 Blood Blood Culture - Preliminary NO GROWTH AFTER 48 HOURS Resulted 08/01/16 18:00 Stool Clostridium difficile Toxin Assay - Final Complete Laboratory Tests Test 08/04/16 08:15 08/04/16 14:00 White Blood Count 24.0 K/UL (4.8-10.8) #*H Red Blood Count 2.81 M/UL (4.70-6.10) L Hemoglobin 8.6 G/DL (14.2-18.0) L Hematocrit 25.5 % (42.0-52.0) L Mean Corpuscular Volume 91 FL (80-99) Mean Corpuscular Hemoglobin 30.5 PG (27.0-31.0) Mean Corpuscular Hemoglobin Concent 33.6 G/DL (32.0-36.0) Red Cell Distribution Width 12.5 % (11.6-14.8) Platelet Count 371 K/UL (150-450) Mean Platelet Volume 6.7 FL (6.5-10.1) Neutrophils (%) (Auto) % (45.0-75.0) Lymphocytes (%) (Auto) % (20.0-45.0) Monocytes (%) (Auto) % (1.0-10.0) Eosinophils (%) (Auto) % (0.0-3.0) Basophils (%) (Auto) % (0.0-2.0) Differential Total Cells Counted 100 Neutrophils % (Manual) 78 % (45-75) H Lymphocytes % (Manual) 8 % (20-45) L Monocytes % (Manual) 9 % (1-10) Eosinophils % (Manual) 4 % (0-3) H Basophils % (Manual) 0 % (0-2) Band Neutrophils 1 % (0-8) Platelet Estimate Adequate Platelet Morphology Normal Hypochromasia 1+ Sodium Level 144 mEQ/L (135-145) Potassium Level 3.6 mEQ/L (3.4-4.9) Chloride Level 107 mEQ/L (98-107) Carbon Dioxide Level 22 mEQ/L (20-30) Anion Gap 15 (5-15) Blood Urea Nitrogen 33 mg/dL (7-23) H Creatinine 3.3 mg/dL (0.7-1.2) H Estimat Glomerular Filtration Rate 18.9 mL/min (>60) Glucose Level 207 mg/dL (74-106) H Uric Acid 4.7 mg/dL (3.0-7.5) Calcium Level 7.4 mg/dL (8.6-10.2) L Phosphorus Level 3.5 mg/dL (2.5-4.8) Magnesium Level 1.9 mg/dL (1.7-2.5) Total Bilirubin 0.9 mg/dL (0.0-1.2) Gamma Glutamyl Transpeptidase 190 U/L (8-61) H Aspartate Amino Transf (AST/SGOT) 14 U/L (5-40) Alanine Aminotransferase (ALT/SGPT) 31 U/L (3-41) Alkaline Phosphatase 150 U/L (40-129) H Total Protein 5.2 g/dL (6.6-8.7) L Albumin 2.4 g/dL (3.5-5.2) L Globulin 2.8 g/dL Albumin/Globulin Ratio 0.8 (1.0-2.7) L Urine Color Yellow Urine Appearance Clear Urine pH 5 (4.5-8.0) Urine Specific [place] 1.010 (1.005-1.035) Urine Protein 2+ (NEGATIVE) H Urine Glucose (UA) 2+ (NEGATIVE) H Urine Ketones Negative (NEGATIVE) Urine Occult Blood 2+ (NEGATIVE) H Urine Nitrite Negative (NEGATIVE) Urine Bilirubin Negative (NEGATIVE) Urine Urobilinogen Normal MG/DL (0.0-1.0) Urine Leukocyte Esterase Negative (NEGATIVE) Urine RBC 2-4 /HPF (0 - 0) H Urine WBC 0-2 /HPF (0 - 0) Urine Squamous Epithelial Cells Occasional /LPF Urine Amorphous Sediment Few /LPF (NONE) H Urine Bacteria Few /HPF (NONE) Current Medications Medications (Trade) Dose Ordered Sig/Arti Route PRN Reason Start Time Stop Time Status Last Admin Dose Admin Acetaminophen (Tylenol) 650 mg Q4H PRN RECTAL FEVER>100.5 08/03/16 19:00 09/02/16 18:59 Albuterol/ Ipratropium 3 ml 3 ml Q4H PRN HHN Shortness of Breath 08/04/16 09:30 08/09/16 09:29 Dextrose 1,000 ml @ 0 mls/hr Q24H PRN IV PN interrupted or unavailable 08/03/16 21:00 09/02/16 20:59 Dextrose (Dextrose 50%) STAT PRN IV Hypoglycemia 08/03/16 19:00 09/02/16 18:59 Diphenhydramine HCl (Benadryl) 25 mg Q6H PRN IVP Itching/Pruritis 08/03/16 19:00 08/05/16 18:59 Enoxaparin Sodium (Lovenox) 30 mg DAILY SUBQ 08/04/16 09:00 09/03/16 08:59 08/04/16 09:45 Fat Emulsion Intravenous 240 ml/Amino Acids/ Electrolytes/ Dextrose 2,232 ml @ 93 mls/hr Q24H IV 08/03/16 21:00 08/04/16 20:59 08/03/16 21:44 Fat Emulsion Intravenous/Amino Acids/ Electrolytes/ Dextrose (Intralipids/Tpn) 2,232 ml @ 93 mls/hr Q24H IV 08/04/16 21:00 09/03/16 20:59 Hydromorphone HCl (Dilaudid) 0.5 mg Q3H PRN IVP Pain Score 1-3 08/03/16 19:30 08/10/16 19:29 08/04/16 16:55 Hydromorphone HCl (Dilaudid) 1 mg Q3H PRN IVP pain score 4-6 08/05/16 10:30 08/12/16 10:29 Hydromorphone HCl (Dilaudid) 2 mg Q3H PRN IVP pain score 7-10 08/05/16 10:30 08/12/16 10:29 Insulin Aspart (NovoLOG) No Dose Q6HR SUBQ 08/04/16 00:00 09/03/16 00:00 08/04/16 11:47 Linezolid (Zyvox) 300 ml @ 300 mls/hr Q12HR@0600,1800 IVPB 08/04/16 06:00 08/09/16 05:59 08/04/16 05:04 Metoprolol Tartrate (Lopressor) 25 mg Q12HR ORAL 08/03/16 21:00 09/02/16 20:59 08/04/16 09:43 Naloxone HCl (Narcan) 0.1 mg Q1M PRN IVP RR<10/min OR SBP<90 mmHg 08/03/16 19:00 08/05/16 18:59 Ondansetron HCl (Zofran) 4 mg Q6H PRN IVP Nausea & Vomiting 08/03/16 19:10 09/02/16 19:09 Pantoprazole (Protonix) 40 mg DAILY IVP 08/04/16 09:00 09/03/16 08:59 08/04/16 09:46 Piperacillin Sod/ Tazobactam Sod 2.25 gm/Dextrose 55 ml @ 110 mls/hr Q8HR IV 08/04/16 14:00 08/09/16 13:59 08/04/16 14:54 Simethicone (Mylicon) 80 mg QIDPRN PRN NG GAS PAIN 08/03/16 19:00 09/02/16 18:59 Tamsulosin HCl (Flomax) 0.4 mg BEDTIME ORAL 08/03/16 21:00 09/02/16 20:59 08/03/16 21:12 Temazepam (Restoril) 7.5 mg HSPRN PRN ORAL Insomnia 08/03/16 20:00 08/10/16 19:59 Piyush Harris M.D. Aug 04, 2016 17:07
--- NOTE | 2016-08-04 19:33 | General Progress Note ---
Assessment/Plan Assessment/Plan Assessment - SBO / gangrene - resected - septic shock - recovered - ATN - abnormal LFT - ? shocked liver - lactic acidosis - improved - s/p ex lap for anastomotic leak - azotemia Recommendations IVF NPO NGT TPN abx PPI follow labs and exam surgical f/u OOB Subjective Allergies: Coded Allergies: No Known Allergies (Unverified , 07/26/16) Subjective patient seen earlier today d/w DTR at bedside pt on TPN c/o abdominal discomfort and distention POD # 2 after 3rd abdominal surgery advised to use incentive spirometry several times per hour Objective Last 24 Hour Vital Signs Date Time Temp Pulse Resp B/P Pulse Ox O2 Delivery O2 Flow Rate FiO2 08/04/16 19:15 85 18 Room Air 08/04/16 19:15 98 Room Air 21 08/04/16 19:15 Room Air 08/04/16 16:00 99.3 82 20 138/85 99 Room Air 08/04/16 12:00 98.4 72 20 133/79 98 Room Air 08/04/16 09:45 79 145/87 08/04/16 09:43 79 145/87 08/04/16 08:17 18 08/04/16 08:00 98.1 79 20 145/87 100 Nasal Cannula 2.0 08/04/16 06:44 99 Nasal Cannula 2.0 08/04/16 06:43 Nasal Cannula 2.0 08/04/16 04:00 97.9 77 21 137/81 99 Room Air 08/04/16 04:00 18 08/04/16 00:00 19 08/03/16 23:51 98.1 72 20 138/81 100 Room Air 08/03/16 21:15 83 139/81 08/03/16 21:14 83 139/81 08/03/16 20:00 98.2 83 19 139/81 100 Nasal Cannula 2.0 08/03/16 20:00 20 Intake and Output 08/03/16 08/04/16 19:00 07:00 Intake Total 1487.5 ml 773.0 ml Output Total 1865 ml 1840 ml Balance -377.5 ml -1067.0 ml IV Total 1487.5 ml 773.0 ml Output Urine Total 1825 ml 1800 ml Drainage Total 40 ml 40 ml Laboratory Tests 08/04/16 08:15: White Blood Count 24.0#*H, Red Blood Count 2.81L, Hemoglobin 8.6L, Hematocrit 25.5L, Mean Corpuscular Volume 91, Mean Corpuscular Hemoglobin 30.5, Mean Corpuscular Hemoglobin Concent 33.6, Red Cell Distribution Width 12.5, Platelet Count 371, Mean Platelet Volume 6.7, Neutrophils (%) (Auto) , Lymphocytes (%) ( Auto) , Monocytes (%) (Auto) , Eosinophils (%) (Auto) , Basophils (%) (Auto) , Differential Total Cells Counted 100, Neutrophils % (Manual) 78H, Lymphocytes % (Manual) 8L, Monocytes % (Manual) 9, Eosinophils % (Manual) 4H, Basophils % ( Manual) 0, Band Neutrophils 1, Platelet Estimate Adequate, Platelet Morphology Normal, Hypochromasia 1+, Sodium Level 144, Potassium Level 3.6, Chloride Level 107, Carbon Dioxide Level 22, Anion Gap 15, Blood Urea Nitrogen 33H, Creatinine 3.3H, Estimat Glomerular Filtration Rate 18.9, Glucose Level 207H, Uric Acid 4.7 , Calcium Level 7.4L, Phosphorus Level 3.5, Magnesium Level 1.9, Total Bilirubin 0.9, Gamma Glutamyl Transpeptidase 190H, Aspartate Amino Transf (AST/ SGOT) 14, Alanine Aminotransferase (ALT/SGPT) 31, Alkaline Phosphatase 150H, Total Protein 5.2L, Albumin 2.4L, Globulin 2.8, Albumin/Globulin Ratio 0.8L 08/04/16 14:00: Urine Color Yellow, Urine Appearance Clear, Urine pH 5, Urine Specific [place] 1.010, Urine Protein 2+H, Urine Glucose (UA) 2+H, Urine Ketones Negative, Urine Occult Blood 2+H, Urine Nitrite Negative, Urine Bilirubin Negative, Urine Urobilinogen Normal, Urine Leukocyte Esterase Negative, Urine RBC 2-4H, Urine WBC 0-2, Urine Squamous Epithelial Cells Occasional, Urine Amorphous Sediment FewH, Urine Bacteria Few Objective WDWN man NCAT (+) NGT supple CTA RR abd distended, (+)large abd wound, dressing dry, (+) DAK[place] no edema ALVAREZ MARTINEZ Aug 04, 2016 19:33
[2016-08-04] MEDS: Simethicone 80mg tab NG PRN (19:39)
[2016-08-04 20:00] VITALS: BP 163/99
[2016-08-04] MEDS: Tamsulosin 0.4mg cap ORAL SCH (21:56)
[2016-08-04] MEDS: Fat Emulsion Iv 20% 240 ML in Tpn 1,992 ML IV SCH (22:00)
[2016-08-05 00:29] VITALS: BP_SYST 146; BP_SYST 174; BP_DIAS 84; BP_DIAS 91
[2016-08-05] MEDS: NovoLOG Insulin Flexpen SUBQ SCH ×4 (01:43→17:58)
[2016-08-05 04:00] VITALS: BP 149/84
[2016-08-05 05:52] LABS: MEAN CORPUSCULAR HEMOGLOBIN 30.6 PG (27.0-31.0); MEAN CORPUSCULAR HGB CONC 33.7 G/DL (32.0-36.0); MEAN CORPUSCULAR VOLUME 91 FL (80-99); MEAN PLATELET VOLUME 6.7 FL (6.5-10.1); PLATELET COUNT 420 K/UL (150-450); RED BLOOD COUNT 2.88 M/UL (4.70-6.10); RED CELL DISTRIBUTION WIDTH 12.6 % (11.6-14.8)
[2016-08-05 06:03] LABS: WHITE BLOOD COUNT 25.4 K/UL (4.8-10.8)
[2016-08-05] MEDS: Zosyn 2.25 gm in D5W 55ml IV SCH ×3 (06:11→21:07)
[2016-08-05 06:21] LABS: ALBUMIN/GLOBULIN RATIO 0.8 (1.0-2.7); CALCIUM 7.9 mg/dL (8.6-10.2); CREATININE 3.2 mg/dL (0.7-1.2); CRP QUANT 15.8 mg/dL (< 0.5); GLOMERULAR FILTRATION RATE 19.6 mL/min (>60); MAGNESIUM 1.9 mg/dL (1.7-2.5); PHOSPHORUS 3.1 mg/dL (2.5-4.8); POTASSIUM 3.5 mEQ/L (3.4-4.9); TOTAL PROTEIN 5.6 g/dL (6.6-8.7)
[2016-08-05 08:00] VITALS: BP 153/80
--- NOTE | 2016-08-05 08:50 | General Progress Note ---
Assessment/Plan Assessment/Plan Assessment - SBO / gangrene - resected - septic shock - recovered - ATN - abnormal LFT - ? shocked liver - lactic acidosis - improved - s/p ex lap for anastomotic leak - azotemia Recommendations IVF NPO NGT TPN abx PPI follow labs and exam surgical f/u OOB Subjective ROS Limited/Unobtainable: Yes Allergies: Coded Allergies: No Known Allergies (Unverified , 07/26/16) Subjective passed some gas still has abd pain Objective Last 24 Hour Vital Signs Date Time Temp Pulse Resp B/P Pulse Ox O2 Delivery O2 Flow Rate FiO2 08/05/16 04:00 97.3 84 19 149/84 99 Room Air 08/05/16 00:29 98.1 84 21 146/84 98 Room Air 08/04/16 21:56 92 163/99 08/04/16 20:00 98.6 92 18 163/99 100 Room Air 08/04/16 19:15 85 18 Room Air 08/04/16 19:15 98 Room Air 21 08/04/16 19:15 Room Air 08/04/16 16:00 99.3 82 20 138/85 99 Room Air 08/04/16 12:00 98.4 72 20 133/79 98 Room Air 08/04/16 09:45 79 145/87 08/04/16 09:43 79 145/87 Intake and Output 08/04/16 08/05/16 19:00 07:00 Intake Total 1116 ml 541 ml Output Total 2780 ml Balance 1116 ml -2239 ml IV Total 1116 ml 541 ml Output Urine Total 2750 ml Drainage Total 30 ml Laboratory Tests 08/04/16 14:00: Urine Color Yellow, Urine Appearance Clear, Urine pH 5, Urine Specific [place] 1.010, Urine Protein 2+H, Urine Glucose (UA) 2+H, Urine Ketones Negative, Urine Occult Blood 2+H, Urine Nitrite Negative, Urine Bilirubin Negative, Urine Urobilinogen Normal, Urine Leukocyte Esterase Negative, Urine RBC 2-4H, Urine WBC 0-2, Urine Squamous Epithelial Cells Occasional, Urine Amorphous Sediment FewH, Urine Bacteria Few 08/05/16 05:00: White Blood Count 25.4*H, Red Blood Count 2.88L, Hemoglobin 8.8L, Hematocrit 26.2L, Mean Corpuscular Volume 91, Mean Corpuscular Hemoglobin 30.6, Mean Corpuscular Hemoglobin Concent 33.7, Red Cell Distribution Width 12.6, Platelet Count 420, Mean Platelet Volume 6.7, Neutrophils (%) (Auto) , Lymphocytes (%) ( Auto) , Monocytes (%) (Auto) , Eosinophils (%) (Auto) , Basophils (%) (Auto) , Neutrophils % (Manual) [Pending], Lymphocytes % (Manual) [Pending], Platelet Estimate [Pending], Platelet Morphology [Pending], Sodium Level 143, Potassium Level 3.5, Chloride Level 104, Carbon Dioxide Level 23, Anion Gap 16H, Blood Urea Nitrogen 33H, Creatinine 3.2H, Estimat Glomerular Filtration Rate 19.6, Glucose Level 264H, Uric Acid 4.0, Calcium Level 7.9L, Phosphorus Level 3.1, Magnesium Level 1.9, Total Bilirubin 0.7, Aspartate Amino Transf (AST/SGOT) 20, Alanine Aminotransferase (ALT/SGPT) 31, Alkaline Phosphatase 247H, C-Reactive Protein, Quantitative 15.8H, Pro-B-Type Natriuretic Peptide 1415H, Total Protein 5.6L, Albumin 2.5L, Globulin 3.1, Albumin/Globulin Ratio 0.8L General Appearance: alert EENT: normal ENT inspection Neck: supple Cardiovascular: normal rate Respiratory/Chest: decreased breath sounds Abdomen: absent bowel sounds, distended, tender Extremities: non-tender RIDGE STATON Aug 05, 2016 08:50
[2016-08-05] MEDS: Pantoprazole Inj IVP SCH (09:00)
[2016-08-05] MEDS: Metoprolol 25mg tab ORAL SCH ×2 (09:00→21:07)
[2016-08-05] MEDS: Enoxaparin 30mg Inj SUBQ SCH (09:00)
--- NOTE | 2016-08-05 10:15 | General Progress Note ---
Assessment/Plan Assessment/Plan ASSESSMENT: 1. Leukocytosis Likely 2/2 underlying sepsis vs reactive.Has improved from yesterday. 2. Small bowel obstruction. status post exploratory laparotomy; s/p resection gangrene 3. Anemia 2/2 chronic disease, does not require iron 4. Sepsis, likely contributing to leukocytosis. 5. Abdominal pain due to small bowel obstruction. 6. Anemia 2/2 hemodilution 7. Thrombocytopenia - better RECOMMENDATIONS: 1. Monitor wbc counts 2. Have reviewed anemia workup, does not need iron 3. Follow up on Surgery, GI, ID recs. 5. Transfuse if hgb <7. 6. DVT ppx lovenox 7. GI ppx ppi 8. staff Thank you, Estelita Mendez MD Subjective Constitutional: Reports: no symptoms HEENT: Reports: no symptoms Cardiovascular: Reports: no symptoms Respiratory: Reports: no symptoms Gastrointestinal/Abdominal: Reports: poor appetite Genitourinary: Reports: no symptoms 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: Reports: no symptoms Endocrine: Reports: no symptoms Hematologic/Lymphatic: Reports: anemia Allergies: Coded Allergies: No Known Allergies (Unverified , 07/26/16) Subjective no bleeding, passed gas, still some abd bloating Objective Last 24 Hour Vital Signs Date Time Temp Pulse Resp B/P Pulse Ox O2 Delivery O2 Flow Rate FiO2 08/05/16 09:00 90 153/85 08/05/16 08:00 97.2 90 20 153/80 99 Room Air 08/05/16 04:00 97.3 84 19 149/84 99 Room Air 08/05/16 00:29 98.1 84 21 146/84 98 Room Air 08/04/16 21:56 92 163/99 08/04/16 20:00 98.6 92 18 163/99 100 Room Air 08/04/16 19:15 85 18 Room Air 08/04/16 19:15 98 Room Air 21 08/04/16 19:15 Room Air 08/04/16 16:00 99.3 82 20 138/85 99 Room Air 08/04/16 12:00 98.4 72 20 133/79 98 Room Air Intake and Output 08/04/16 08/05/16 19:00 07:00 Intake Total 1116 ml 541 ml Output Total 2780 ml Balance 1116 ml -2239 ml IV Total 1116 ml 541 ml Output Urine Total 2750 ml Drainage Total 30 ml Laboratory Tests 08/04/16 14:00: Urine Color Yellow, Urine Appearance Clear, Urine pH 5, Urine Specific [place] 1.010, Urine Protein 2+H, Urine Glucose (UA) 2+H, Urine Ketones Negative, Urine Occult Blood 2+H, Urine Nitrite Negative, Urine Bilirubin Negative, Urine Urobilinogen Normal, Urine Leukocyte Esterase Negative, Urine RBC 2-4H, Urine WBC 0-2, Urine Squamous Epithelial Cells Occasional, Urine Amorphous Sediment FewH, Urine Bacteria Few 08/05/16 05:00: White Blood Count 25.4*H, Red Blood Count 2.88L, Hemoglobin 8.8L, Hematocrit 26.2L, Mean Corpuscular Volume 91, Mean Corpuscular Hemoglobin 30.6, Mean Corpuscular Hemoglobin Concent 33.7, Red Cell Distribution Width 12.6, Platelet Count 420, Mean Platelet Volume 6.7, Neutrophils (%) (Auto) , Lymphocytes (%) ( Auto) , Monocytes (%) (Auto) , Eosinophils (%) (Auto) , Basophils (%) (Auto) , Neutrophils % (Manual) [Pending], Lymphocytes % (Manual) [Pending], Platelet Estimate [Pending], Platelet Morphology [Pending], Sodium Level 143, Potassium Level 3.5, Chloride Level 104, Carbon Dioxide Level 23, Anion Gap 16H, Blood Urea Nitrogen 33H, Creatinine 3.2H, Estimat Glomerular Filtration Rate 19.6, Glucose Level 264H, Uric Acid 4.0, Calcium Level 7.9L, Phosphorus Level 3.1, Magnesium Level 1.9, Total Bilirubin 0.7, Aspartate Amino Transf (AST/SGOT) 20, Alanine Aminotransferase (ALT/SGPT) 31, Alkaline Phosphatase 247H, C-Reactive Protein, Quantitative 15.8H, Pro-B-Type Natriuretic Peptide 1415H, Total Protein 5.6L, Albumin 2.5L, Globulin 3.1, Albumin/Globulin Ratio 0.8L General Appearance: no apparent distress EENT: TMs normal Neck: supple Cardiovascular: regular rhythm Respiratory/Chest: lungs clear Extremities: non-tender Edema: 1+ Leg (L), 1+ Leg (R) Edema: mild edema Neurologic: alert Skin: warm/dry ESTELITA MENDEZ Aug 05, 2016 10:15
[2016-08-05] MEDS ORDERED: HYDROmorphone 1mg/ml Carpuject IVP PRN (10:30)
[2016-08-05] MEDS ORDERED: Hydromorphone 0.5mg/0.5ml inj IVP PRN (10:30)
--- NOTE | 2016-08-05 11:08 | General Surgery Progress Note ---
General Surgery-Progress Note Subjective Procedure Performed Exploratory Laparotomy and resection of anastomosis with anstomosis of small bowel to colon Symptoms: passing flatus Objective Last 24 Hour Vital Signs Date Time Temp Pulse Resp B/P Pulse Ox O2 Delivery O2 Flow Rate FiO2 08/05/16 09:00 90 153/85 08/05/16 08:00 97.2 90 20 153/80 99 Room Air 08/05/16 04:00 97.3 84 19 149/84 99 Room Air 08/05/16 00:29 98.1 84 21 146/84 98 Room Air 08/04/16 21:56 92 163/99 08/04/16 20:00 98.6 92 18 163/99 100 Room Air 08/04/16 19:15 85 18 Room Air 08/04/16 19:15 98 Room Air 21 08/04/16 19:15 Room Air 08/04/16 16:00 99.3 82 20 138/85 99 Room Air 08/04/16 12:00 98.4 72 20 133/79 98 Room Air I&O Intake and Output 08/04/16 08/05/16 19:00 07:00 Intake Total 1116 ml 541 ml Output Total 2780 ml Balance 1116 ml -2239 ml IV Total 1116 ml 541 ml Output Urine Total 2750 ml Drainage Total 30 ml Drains: curtis Respiratory: clear Abdomen: soft, flat, tenderness, absent bowel sounds Extremities: edema Laboratory Tests Test 08/04/16 14:00 08/05/16 05:00 Urine Color Yellow Urine Appearance Clear Urine pH 5 (4.5-8.0) Urine Specific [place] 1.010 (1.005-1.035) Urine Protein 2+ (NEGATIVE) H Urine Glucose (UA) 2+ (NEGATIVE) H Urine Ketones Negative (NEGATIVE) Urine Occult Blood 2+ (NEGATIVE) H Urine Nitrite Negative (NEGATIVE) Urine Bilirubin Negative (NEGATIVE) Urine Urobilinogen Normal MG/DL (0.0-1.0) Urine Leukocyte Esterase Negative (NEGATIVE) Urine RBC 2-4 /HPF (0 - 0) H Urine WBC 0-2 /HPF (0 - 0) Urine Squamous Epithelial Cells Occasional /LPF Urine Amorphous Sediment Few /LPF (NONE) H Urine Bacteria Few /HPF (NONE) White Blood Count 25.4 K/UL (4.8-10.8) *H Red Blood Count 2.88 M/UL (4.70-6.10) L Hemoglobin 8.8 G/DL (14.2-18.0) L Hematocrit 26.2 % (42.0-52.0) L Mean Corpuscular Volume 91 FL (80-99) Mean Corpuscular Hemoglobin 30.6 PG (27.0-31.0) Mean Corpuscular Hemoglobin Concent 33.7 G/DL (32.0-36.0) Red Cell Distribution Width 12.6 % (11.6-14.8) Platelet Count 420 K/UL (150-450) Mean Platelet Volume 6.7 FL (6.5-10.1) Neutrophils (%) (Auto) % (45.0-75.0) Lymphocytes (%) (Auto) % (20.0-45.0) Monocytes (%) (Auto) % (1.0-10.0) Eosinophils (%) (Auto) % (0.0-3.0) Basophils (%) (Auto) % (0.0-2.0) Neutrophils % (Manual) Pending Lymphocytes % (Manual) Pending Platelet Estimate Pending Platelet Morphology Pending Sodium Level 143 mEQ/L (135-145) Potassium Level 3.5 mEQ/L (3.4-4.9) Chloride Level 104 mEQ/L (98-107) Carbon Dioxide Level 23 mEQ/L (20-30) Anion Gap 16 (5-15) H Blood Urea Nitrogen 33 mg/dL (7-23) H Creatinine 3.2 mg/dL (0.7-1.2) H Estimat Glomerular Filtration Rate 19.6 mL/min (>60) Glucose Level 264 mg/dL (74-106) H Uric Acid 4.0 mg/dL (3.0-7.5) Calcium Level 7.9 mg/dL (8.6-10.2) L Phosphorus Level 3.1 mg/dL (2.5-4.8) Magnesium Level 1.9 mg/dL (1.7-2.5) Total Bilirubin 0.7 mg/dL (0.0-1.2) Aspartate Amino Transf (AST/SGOT) 20 U/L (5-40) Alanine Aminotransferase (ALT/SGPT) 31 U/L (3-41) Alkaline Phosphatase 247 U/L (40-129) H C-Reactive Protein, Quantitative 15.8 mg/dL (< 0.5) H Pro-B-Type Natriuretic Peptide 1415 pg/mL (0-125) H Total Protein 5.6 g/dL (6.6-8.7) L Albumin 2.5 g/dL (3.5-5.2) L Globulin 3.1 g/dL Albumin/Globulin Ratio 0.8 (1.0-2.7) L Assessment Post-op Diagnosis anastomosis leakage Plan Additional Comments continue IV antibiotics EDWIN NOGUEIRA Aug 05, 2016 11:08
--- NOTE | 2016-08-05 11:15 | General Progress Note ---
Assessment/Plan Problem List: (1) Ileus ICD Codes: K56.7 - Ileus, unspecified SNOMED: 633525359 (2) Sepsis ICD Codes: A41.9 - Sepsis, unspecified organism SNOMED: 94730306 (3) Abdominal pain ICD Codes: R10.9 - Unspecified abdominal pain SNOMED: 30580430 (4) SBO (small bowel obstruction) ICD Codes: K56.69 - Other intestinal obstruction SNOMED: 451379458 (5) Abdominal gas pain ICD Codes: R14.1 - Gas pain SNOMED: 77935113 (6) Enteritis ICD Codes: K52.9 - Noninfective gastroenteritis and colitis, unspecified SNOMED: 06912519 Status: progressing Assessment/Plan s/p third explo lap s/p re anstamosis by dr zee sepsis persistent leukocytosis abx per id s/ leak at anastamosis site Subjective ROS Limited/Unobtainable: Yes Constitutional: Reports: no symptoms Allergies: Coded Allergies: No Known Allergies (Unverified , 07/26/16) Objective Last 24 Hour Vital Signs Date Time Temp Pulse Resp B/P Pulse Ox O2 Delivery O2 Flow Rate FiO2 08/05/16 09:00 90 153/85 08/05/16 08:00 97.2 90 20 153/80 99 Room Air 08/05/16 04:00 97.3 84 19 149/84 99 Room Air 08/05/16 00:29 98.1 84 21 146/84 98 Room Air 08/04/16 21:56 92 163/99 08/04/16 20:00 98.6 92 18 163/99 100 Room Air 08/04/16 19:15 85 18 Room Air 08/04/16 19:15 98 Room Air 21 08/04/16 19:15 Room Air 08/04/16 16:00 99.3 82 20 138/85 99 Room Air 08/04/16 12:00 98.4 72 20 133/79 98 Room Air Intake and Output 08/04/16 08/05/16 18:59 06:59 Intake Total 1116 ml 634 ml Output Total 2780 ml Balance 1116 ml -2146 ml IV Total 1116 ml 634 ml Output Urine Total 2750 ml Drainage Total 30 ml Laboratory Tests 08/04/16 14:00: Urine Color Yellow, Urine Appearance Clear, Urine pH 5, Urine Specific [place] 1.010, Urine Protein 2+H, Urine Glucose (UA) 2+H, Urine Ketones Negative, Urine Occult Blood 2+H, Urine Nitrite Negative, Urine Bilirubin Negative, Urine Urobilinogen Normal, Urine Leukocyte Esterase Negative, Urine RBC 2-4H, Urine WBC 0-2, Urine Squamous Epithelial Cells Occasional, Urine Amorphous Sediment FewH, Urine Bacteria Few 08/05/16 05:00: White Blood Count 25.4*H, Red Blood Count 2.88L, Hemoglobin 8.8L, Hematocrit 26.2L, Mean Corpuscular Volume 91, Mean Corpuscular Hemoglobin 30.6, Mean Corpuscular Hemoglobin Concent 33.7, Red Cell Distribution Width 12.6, Platelet Count 420, Mean Platelet Volume 6.7, Neutrophils (%) (Auto) , Lymphocytes (%) ( Auto) , Monocytes (%) (Auto) , Eosinophils (%) (Auto) , Basophils (%) (Auto) , Neutrophils % (Manual) [Pending], Lymphocytes % (Manual) [Pending], Platelet Estimate [Pending], Platelet Morphology [Pending], Sodium Level 143, Potassium Level 3.5, Chloride Level 104, Carbon Dioxide Level 23, Anion Gap 16H, Blood Urea Nitrogen 33H, Creatinine 3.2H, Estimat Glomerular Filtration Rate 19.6, Glucose Level 264H, Uric Acid 4.0, Calcium Level 7.9L, Phosphorus Level 3.1, Magnesium Level 1.9, Total Bilirubin 0.7, Aspartate Amino Transf (AST/SGOT) 20, Alanine Aminotransferase (ALT/SGPT) 31, Alkaline Phosphatase 247H, C-Reactive Protein, Quantitative 15.8H, Pro-B-Type Natriuretic Peptide 1415H, Total Protein 5.6L, Albumin 2.5L, Globulin 3.1, Albumin/Globulin Ratio 0.8L General Appearance: alert Cardiovascular: normal rate Respiratory/Chest: lungs clear Abdomen: soft Teo Love MD Aug 05, 2016 11:15
[2016-08-05 11:30] LABS: BAND NEUTROPHILS % (MANUAL) 2 % (0-8); BASOPHILS % (MANUAL) 0 % (0-2); EOSINOPHILS % (MANUAL) 3 % (0-3); LYMPHOCYTES % (MANUAL) 6 % (20-45); NEUTROPHILS % (MANUAL) 82 % (45-75); PLATELET ESTIMATE INCREASED; PLATELET MORPHOLOGY NORMAL; TOTAL CELLS COUNTED 100
--- NOTE | 2016-08-05 11:48 | Pulmonology Progress Note ---
Assessment/Plan Assessment/Plan ASSESSMENT septic shock- resolved sepsis 2 to SBO and gangrenous bowel SBP with gangrenous bowel intubated for surgery s/p extubation MIGNON 2 to sepsis s/p1/ exp lap and lysis of adhesion anastomosis leak s/p 08/02 exp lap and resection of anastomosis with anastomosis of SB to colon NSTEMI HTN anemia abnormal LFT PLAN OF CARE [facility] floor TPN and lipids surgery and GI follow abx, ID follows blood cx, stool C dif, abdominal fluid cx all negative persistent leukocytosis CT A/P today O2, HHN prn encourage IS q1 , pain management with EVP MANAGING DIRECTOR elevated troponin likely 2 to demand ischemia- per cardio,. last troponin 0.33 ECG -no ischemic pattern ECHO with preserved EF, no evidence of pulmonary HTN BP management with CCB and BB, no LINNEA due to MIGNON renal parameters with small improvement, IVF, nephro follows avoid nephrotoxic, monitor renal parameters and lytes Canales in, episode of urinary retention 08/04 on PVR, s/p Canales imaging - no evidence of kidney, prostate or bladder pathology, trend LFT anemia workup noted, no need for iron - per heme,. follows monitor HH, transfuse prn , HH at baseline case discussed and evaluated by supervising physician Subjective Allergies: Coded Allergies: No Known Allergies (Unverified , 07/26/16) Subjective on [facility] floor afebrile, still with significant leukocytosis denies pain, passing gas using EVP MANAGING DIRECTOR sparingly no n/v/ denies SOB, chest pain urinary retention 08/04, noted on PVR, s/p Canales daughter at the bedside Objective Last 24 Hour Vital Signs Date Time Temp Pulse Resp B/P Pulse Ox O2 Delivery O2 Flow Rate FiO2 08/05/16 09:00 90 153/85 08/05/16 08:00 97.2 90 20 153/80 99 Room Air 08/05/16 04:00 97.3 84 19 149/84 99 Room Air 08/05/16 00:29 98.1 84 21 146/84 98 Room Air 08/04/16 21:56 92 163/99 08/04/16 20:00 98.6 92 18 163/99 100 Room Air 08/04/16 19:15 85 18 Room Air 08/04/16 19:15 98 Room Air 21 08/04/16 19:15 Room Air 08/04/16 16:00 99.3 82 20 138/85 99 Room Air 08/04/16 12:00 98.4 72 20 133/79 98 Room Air Intake and Output 08/04/16 08/05/16 19:00 07:00 Intake Total 1116 ml 541 ml Output Total 2780 ml Balance 1116 ml -2239 ml IV Total 1116 ml 541 ml Output Urine Total 2750 ml Drainage Total 30 ml Objective General Appearance: no acute distress, other - awake, alert, oriented Romansh speaking male in NAD HEENT: normocephalic, atraumatic, anicteric, PERRL, EOMI, supple, no JVD, O2 via NC , NGT to LIS Respiratory/Chest: chest wall non-tender, lungs clear, no respiratory distress , no accessory muscle use Cardiovascular: normal peripheral pulses, normal rate, regular rhythm, no JVD Abdomen: other - abdomen soft, mild distention, mild tenderness, no BS, abdominal dressing C/D/I, [place] x2 with scant amount of serous drainage Genitourinary: normal external genitalia Extremities: no edema, pedal pulses normal 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: no motor/sensory deficits, alert, oriented x 3, responsive Musculoskeletal: normal muscle bulk Laboratory Tests 08/04/16 14:00: Urine Color Yellow, Urine Appearance Clear, Urine pH 5, Urine Specific [place] 1.010, Urine Protein 2+H, Urine Glucose (UA) 2+H, Urine Ketones Negative, Urine Occult Blood 2+H, Urine Nitrite Negative, Urine Bilirubin Negative, Urine Urobilinogen Normal, Urine Leukocyte Esterase Negative, Urine RBC 2-4H, Urine WBC 0-2, Urine Squamous Epithelial Cells Occasional, Urine Amorphous Sediment FewH, Urine Bacteria Few 08/05/16 05:00: White Blood Count 25.4*H, Red Blood Count 2.88L, Hemoglobin 8.8L, Hematocrit 26.2L, Mean Corpuscular Volume 91, Mean Corpuscular Hemoglobin 30.6, Mean Corpuscular Hemoglobin Concent 33.7, Red Cell Distribution Width 12.6, Platelet Count 420, Mean Platelet Volume 6.7, Neutrophils (%) (Auto) , Lymphocytes (%) ( Auto) , Monocytes (%) (Auto) , Eosinophils (%) (Auto) , Basophils (%) (Auto) , Differential Total Cells Counted 100, Neutrophils % (Manual) 82H, Lymphocytes % (Manual) 6L, Monocytes % (Manual) 7, Eosinophils % (Manual) 3, Basophils % ( Manual) 0, Band Neutrophils 2, Platelet Estimate IncreasedH, Platelet Morphology Normal, Red Blood Cell Morphology Normal, Sodium Level 143, Potassium Level 3.5, Chloride Level 104, Carbon Dioxide Level 23, Anion Gap 16H , Blood Urea Nitrogen 33H, Creatinine 3.2H, Estimat Glomerular Filtration Rate 19.6, Glucose Level 264H, Uric Acid 4.0, Calcium Level 7.9L, Phosphorus Level 3.1, Magnesium Level 1.9, Total Bilirubin 0.7, Aspartate Amino Transf (AST/SGOT ) 20, Alanine Aminotransferase (ALT/SGPT) 31, Alkaline Phosphatase 247H, C- Reactive Protein, Quantitative 15.8H, Pro-B-Type Natriuretic Peptide 1415H, Total Protein 5.6L, Albumin 2.5L, Globulin 3.1, Albumin/Globulin Ratio 0.8L Current Medications Medications (Trade) Dose Ordered Sig/Arti Route PRN Reason Start Time Stop Time Status Last Admin Dose Admin Acetaminophen (Tylenol) 650 mg Q4H PRN RECTAL FEVER>100.5 08/03/16 19:00 09/02/16 18:59 Albuterol/ Ipratropium 3 ml 3 ml Q4H PRN HHN Shortness of Breath 08/04/16 09:30 08/09/16 09:29 Dextrose 1,000 ml @ 0 mls/hr Q24H PRN IV PN interrupted or unavailable 08/03/16 21:00 09/02/16 20:59 Dextrose (Dextrose 50%) STAT PRN IV Hypoglycemia 08/03/16 19:00 09/02/16 18:59 Diphenhydramine HCl (Benadryl) 25 mg Q6H PRN IVP Itching/Pruritis 08/03/16 19:00 08/05/16 18:59 Enoxaparin Sodium (Lovenox) 30 mg DAILY SUBQ 08/04/16 09:00 09/03/16 08:59 08/05/16 09:00 Fat Emulsion Intravenous 240 ml/Amino Acids/ Electrolytes/ Dextrose 2,232 ml @ 93 mls/hr Q24H IV 08/04/16 21:00 09/03/16 20:59 08/04/16 22:00 Fluconazole/ Sodium Chloride (Diflucan 400mg/ 200ml Premix) 200 ml @ 100 mls/hr Q24H IV 08/05/16 09:00 08/12/16 08:59 08/05/16 09:00 Hydromorphone HCl (Dilaudid) 0.5 mg Q3H PRN IVP Pain Score 1-3 08/03/16 19:30 08/10/16 19:29 08/04/16 16:55 Hydromorphone HCl (Dilaudid) 1 mg Q3H PRN IVP pain score 4-6 08/04/16 20:30 08/11/16 20:29 Hydromorphone HCl (Dilaudid) 2 mg Q3H PRN IVP pain score 7-10 08/04/16 20:30 08/11/16 20:29 08/04/16 23:59 Insulin Aspart (NovoLOG) No Dose Q6HR SUBQ 08/04/16 00:00 09/03/16 00:00 08/05/16 06:11 Linezolid (Zyvox) 300 ml @ 300 mls/hr Q12HR@0600,1800 IVPB 08/04/16 06:00 08/09/16 05:59 08/05/16 06:11 Metoprolol Tartrate (Lopressor) 25 mg Q12HR ORAL 08/03/16 21:00 09/02/16 20:59 08/05/16 09:00 Naloxone HCl (Narcan) 0.1 mg Q1M PRN IVP RR<10/min OR SBP<90 mmHg 08/03/16 19:00 08/05/16 18:59 Ondansetron HCl (Zofran) 4 mg Q6H PRN IVP Nausea & Vomiting 08/03/16 19:10 09/02/16 19:09 Pantoprazole (Protonix) 40 mg DAILY IVP 08/04/16 09:00 09/03/16 08:59 08/05/16 09:00 Piperacillin Sod/ Tazobactam Sod 2.25 gm/Dextrose 55 ml @ 110 mls/hr Q8HR IV 08/04/16 14:00 08/09/16 13:59 08/05/16 06:11 Simethicone (Mylicon) 80 mg QIDPRN PRN NG GAS PAIN 08/03/16 19:00 09/02/16 18:59 08/04/16 19:39 Tamsulosin HCl (Flomax) 0.4 mg BEDTIME ORAL 08/03/16 21:00 09/02/16 20:59 08/04/16 21:56 Temazepam (Restoril) 7.5 mg HSPRN PRN ORAL Insomnia 08/03/16 20:00 08/10/16 19:59 [facility] ([facility]),Tess SANTIAGO Aug 05, 2016 11:48
[2016-08-05 12:00] VITALS: BP 164/93
[2016-08-05] MEDS ORDERED: DiphenhydrAMINE 50mg/ml Inj IVP PRN (13:00)
--- NOTE | 2016-08-05 14:24 | General Progress Note ---
Assessment/Plan Status: stable - from renal stand, deteriorating - leukocytosis Assessment/Plan status: Septic Shock leading to acute renal failure- Cr peaked 4.8 now down to 3.3 Abdominal Surgery 07/26/16 then again 05/27 and revison 08/02 Plan; re image- CT with po contrast on TPN post op care- Antibiotics- Protonix IV monitor renal parameters- discussed with son in law Subjective ROS Limited/Unobtainable: No Constitutional: Reports: malaise, weakness Gastrointestinal/Abdominal: Reports: abdomen distended, abdominal pain Allergies: Coded Allergies: No Known Allergies (Unverified , 07/26/16) Objective Last 24 Hour Vital Signs Date Time Temp Pulse Resp B/P Pulse Ox O2 Delivery O2 Flow Rate FiO2 08/05/16 12:00 97.3 78 18 164/93 99 Room Air 08/05/16 09:00 90 153/85 08/05/16 08:00 97.2 90 20 153/80 99 Room Air 08/05/16 07:25 90 19 Room Air 08/05/16 04:00 97.3 84 19 149/84 99 Room Air 08/05/16 00:29 98.1 84 21 146/84 98 Room Air 08/04/16 21:56 92 163/99 08/04/16 20:00 98.6 92 18 163/99 100 Room Air 08/04/16 19:15 85 18 Room Air 08/04/16 19:15 98 Room Air 21 08/04/16 19:15 Room Air 08/04/16 16:00 99.3 82 20 138/85 99 Room Air Intake and Output 08/04/16 08/05/16 19:00 07:00 Intake Total 1116 ml 541 ml Output Total 2780 ml Balance 1116 ml -2239 ml IV Total 1116 ml 541 ml Output Urine Total 2750 ml Drainage Total 30 ml Laboratory Tests 08/05/16 05:00: White Blood Count 25.4*H, Red Blood Count 2.88L, Hemoglobin 8.8L, Hematocrit 26.2L, Mean Corpuscular Volume 91, Mean Corpuscular Hemoglobin 30.6, Mean Corpuscular Hemoglobin Concent 33.7, Red Cell Distribution Width 12.6, Platelet Count 420, Mean Platelet Volume 6.7, Neutrophils (%) (Auto) , Lymphocytes (%) ( Auto) , Monocytes (%) (Auto) , Eosinophils (%) (Auto) , Basophils (%) (Auto) , Differential Total Cells Counted 100, Neutrophils % (Manual) 82H, Lymphocytes % (Manual) 6L, Monocytes % (Manual) 7, Eosinophils % (Manual) 3, Basophils % ( Manual) 0, Band Neutrophils 2, Platelet Estimate IncreasedH, Platelet Morphology Normal, Red Blood Cell Morphology Normal, Sodium Level 143, Potassium Level 3.5, Chloride Level 104, Carbon Dioxide Level 23, Anion Gap 16H , Blood Urea Nitrogen 33H, Creatinine 3.2H, Estimat Glomerular Filtration Rate 19.6, Glucose Level 264H, Uric Acid 4.0, Calcium Level 7.9L, Phosphorus Level 3.1, Magnesium Level 1.9, Total Bilirubin 0.7, Aspartate Amino Transf (AST/SGOT ) 20, Alanine Aminotransferase (ALT/SGPT) 31, Alkaline Phosphatase 247H, C- Reactive Protein, Quantitative 15.8H, Pro-B-Type Natriuretic Peptide 1415H, Total Protein 5.6L, Albumin 2.5L, Globulin 3.1, Albumin/Globulin Ratio 0.8L General Appearance: mild distress Cardiovascular: regular rhythm Respiratory/Chest: decreased breath sounds Abdomen: distended Objective no other changes in PE REBECCA SCHULTE Aug 05, 2016 14:24
--- NOTE | 2016-08-05 14:28 | Infectious Diseases Prog Note ---
Assessment/Plan Problems: (1) Septic shock Assessment & Plan: with persistent leukocytosis on zyvox and zosyn, S/P three EXP LAP, complicated with anastomosis leak , S/P revision, repeated blood culture is pending, UA and CXR are OK , leukocytosis is most likely due to his recent surgery , will order CT ABD without contrast to rule out abscess, continue current antibiotics regimen and add fluconazole . stool for C diff is negative , abdominal fluids culture showed no growth. (2) SBO (small bowel obstruction) Assessment & Plan: S/P EX LAP X3 , has ileus post OP, now with persistent abdominal pain, due to anastomosis leak, S/P revision , continue IVF, and pain management , general surgery is following (3) Abdominal pain Assessment & Plan: continue pain management, surgery is following (4) MIGNON (acute kidney injury) Assessment & Plan: due to sepsis and hypotension, continue IVF, titrate to keep SBP >100, renal is following (5) Ileus Assessment & Plan: due to repeated EXP LAP, continue IVF, and NGT suctioning , surgery is following Subjective Constitutional: Reports: no symptoms HEENT: Reports: no symptoms Respiratory: Reports: no symptoms Breasts: Reports: no symptoms Cardiovascular: Reports: no symptoms Gastrointestinal/Abdominal: Reports: bloating, other - pain and pressure in his abdomen Genitourinary: Reports: no symptoms Neurologic: Reports: no symptoms Psychiatric: Reports: no symptoms Skin: Reports: no symptoms Endocrine: Reports: no symptoms Allergies: Coded Allergies: No Known Allergies (Unverified , 07/26/16) Subjective he had bowel movement today non bloody, no fever or chills, no cough or SOB, passed mich, tolerated liquid diet Objective Vital Signs Last 24 Hour Vital Signs Date Time Temp Pulse Resp B/P Pulse Ox O2 Delivery O2 Flow Rate FiO2 08/05/16 12:00 97.3 78 18 164/93 99 Room Air 08/05/16 09:00 90 153/85 08/05/16 08:00 97.2 90 20 153/80 99 Room Air 08/05/16 07:25 90 19 Room Air 08/05/16 04:00 97.3 84 19 149/84 99 Room Air 08/05/16 00:29 98.1 84 21 146/84 98 Room Air 08/04/16 21:56 92 163/99 08/04/16 20:00 98.6 92 18 163/99 100 Room Air 08/04/16 19:15 85 18 Room Air 08/04/16 19:15 98 Room Air 21 08/04/16 19:15 Room Air 08/04/16 16:00 99.3 82 20 138/85 99 Room Air General Appearance: WD/WN, no acute distress HEENT: normocephalic, atraumatic, anicteric, mucous membranes moist Respiratory/Chest: chest wall non-tender, lungs clear, normal breath sounds, no respiratory distress, no accessory muscle use Cardiovascular: normal peripheral pulses, normal rate, regular rhythm, no gallop/murmur Abdomen: no organomegaly, no mass, no scars, absent bowel sounds, distended, tender Extremities: no cyanosis, no clubbing Skin: no rash, no lesions, no ulcers Laboratory Tests Test 08/05/16 05:00 White Blood Count 25.4 K/UL (4.8-10.8) *H Red Blood Count 2.88 M/UL (4.70-6.10) L Hemoglobin 8.8 G/DL (14.2-18.0) L Hematocrit 26.2 % (42.0-52.0) L Mean Corpuscular Volume 91 FL (80-99) Mean Corpuscular Hemoglobin 30.6 PG (27.0-31.0) Mean Corpuscular Hemoglobin Concent 33.7 G/DL (32.0-36.0) Red Cell Distribution Width 12.6 % (11.6-14.8) Platelet Count 420 K/UL (150-450) Mean Platelet Volume 6.7 FL (6.5-10.1) Neutrophils (%) (Auto) % (45.0-75.0) Lymphocytes (%) (Auto) % (20.0-45.0) Monocytes (%) (Auto) % (1.0-10.0) Eosinophils (%) (Auto) % (0.0-3.0) Basophils (%) (Auto) % (0.0-2.0) Differential Total Cells Counted 100 Neutrophils % (Manual) 82 % (45-75) H Lymphocytes % (Manual) 6 % (20-45) L Monocytes % (Manual) 7 % (1-10) Eosinophils % (Manual) 3 % (0-3) Basophils % (Manual) 0 % (0-2) Band Neutrophils 2 % (0-8) Platelet Estimate Increased H Platelet Morphology Normal Red Blood Cell Morphology Normal Sodium Level 143 mEQ/L (135-145) Potassium Level 3.5 mEQ/L (3.4-4.9) Chloride Level 104 mEQ/L (98-107) Carbon Dioxide Level 23 mEQ/L (20-30) Anion Gap 16 (5-15) H Blood Urea Nitrogen 33 mg/dL (7-23) H Creatinine 3.2 mg/dL (0.7-1.2) H Estimat Glomerular Filtration Rate 19.6 mL/min (>60) Glucose Level 264 mg/dL (74-106) H Uric Acid 4.0 mg/dL (3.0-7.5) Calcium Level 7.9 mg/dL (8.6-10.2) L Phosphorus Level 3.1 mg/dL (2.5-4.8) Magnesium Level 1.9 mg/dL (1.7-2.5) Total Bilirubin 0.7 mg/dL (0.0-1.2) Aspartate Amino Transf (AST/SGOT) 20 U/L (5-40) Alanine Aminotransferase (ALT/SGPT) 31 U/L (3-41) Alkaline Phosphatase 247 U/L (40-129) H C-Reactive Protein, Quantitative 15.8 mg/dL (< 0.5) H Pro-B-Type Natriuretic Peptide 1415 pg/mL (0-125) H Total Protein 5.6 g/dL (6.6-8.7) L Albumin 2.5 g/dL (3.5-5.2) L Globulin 3.1 g/dL Albumin/Globulin Ratio 0.8 (1.0-2.7) L Current Medications Medications (Trade) Dose Ordered Sig/Arti Route PRN Reason Start Time Stop Time Status Last Admin Dose Admin Acetaminophen (Tylenol) 650 mg Q4H PRN RECTAL FEVER>100.5 08/03/16 19:00 09/02/16 18:59 Albuterol/ Ipratropium 3 ml 3 ml Q4H PRN HHN Shortness of Breath 08/04/16 09:30 08/09/16 09:29 Dextrose 1,000 ml @ 0 mls/hr Q24H PRN IV PN interrupted or unavailable 08/03/16 21:00 09/02/16 20:59 Dextrose (Dextrose 50%) STAT PRN IV Hypoglycemia 08/03/16 19:00 09/02/16 18:59 Diphenhydramine HCl (Benadryl) 25 mg Q6H PRN IVP Itching/Pruritis 08/05/16 13:00 08/07/16 23:59 Enoxaparin Sodium (Lovenox) 30 mg DAILY SUBQ 08/04/16 09:00 09/03/16 08:59 08/05/16 09:00 Fat Emulsion Intravenous 240 ml/Amino Acids/ Electrolytes/ Dextrose 2,232 ml @ 93 mls/hr Q24H IV 08/04/16 21:00 09/03/16 20:59 08/04/16 22:00 Fluconazole/ Sodium Chloride (Diflucan 400mg/ 200ml Premix) 200 ml @ 100 mls/hr Q24H IV 08/05/16 09:00 08/12/16 08:59 08/05/16 09:00 Hydromorphone HCl (Dilaudid) 0.5 mg Q3H PRN IVP Pain Score 1-3 08/03/16 19:30 08/10/16 19:29 08/04/16 16:55 Hydromorphone HCl (Dilaudid) 1 mg Q3H PRN IVP pain score 4-6 08/04/16 20:30 08/11/16 20:29 Hydromorphone HCl (Dilaudid) 2 mg Q3H PRN IVP pain score 7-10 08/04/16 20:30 08/11/16 20:29 08/04/16 23:59 Insulin Aspart (NovoLOG) No Dose Q6HR SUBQ 08/04/16 00:00 09/03/16 00:00 08/05/16 11:56 Linezolid (Zyvox) 300 ml @ 300 mls/hr Q12HR@0600,1800 IVPB 08/04/16 06:00 08/09/16 05:59 08/05/16 06:11 Metoprolol Tartrate (Lopressor) 25 mg Q12HR ORAL 08/03/16 21:00 09/02/16 20:59 08/05/16 09:00 Naloxone HCl (Narcan) 0.1 mg Q1M PRN IVP RR<10/min OR SBP<90 mmHg 08/03/16 19:00 08/05/16 18:59 Ondansetron HCl (Zofran) 4 mg Q6H PRN IVP Nausea & Vomiting 08/03/16 19:10 09/02/16 19:09 Pantoprazole (Protonix) 40 mg DAILY IVP 08/04/16 09:00 09/03/16 08:59 08/05/16 09:00 Piperacillin Sod/ Tazobactam Sod 2.25 gm/Dextrose 55 ml @ 110 mls/hr Q8HR IV 08/04/16 14:00 08/09/16 13:59 08/05/16 06:11 Simethicone (Mylicon) 80 mg QIDPRN PRN NG GAS PAIN 08/03/16 19:00 09/02/16 18:59 08/04/16 19:39 Tamsulosin HCl (Flomax) 0.4 mg BEDTIME ORAL 08/03/16 21:00 09/02/16 20:59 08/04/16 21:56 Temazepam (Restoril) 7.5 mg HSPRN PRN ORAL Insomnia 08/03/16 20:00 08/10/16 19:59 Piyush Harris M.D. Aug 05, 2016 14:28
[2016-08-05] MEDS ORDERED: Tubing IV Secondary IV ONE ×2 (15:05→15:59)
[2016-08-05] MEDS ORDERED: D5NS 1000ml IV ONE ×2 (15:08→15:59)
[2016-08-05] MEDS ORDERED: 1/2 NS 1000ml IV ONE (15:08)
[2016-08-05 16:00] VITALS: BP 168/88
[2016-08-05] MEDS: HYDROmorphone 1mg/ml Carpuject IVP PRN ×2 (16:03→19:03)
--- NOTE | 2016-08-05 17:48 | Cardiac Electrophysiology PN ---
Assessment/Plan Assessment/Plan 1. Elevated troponin due to demand ischemia vs renal failure. ECG non ischemic. Troponin 1.3 to 0.33. Echo NL EF.Continue Lopressor 25 bid.No chest pain. 2. S/P Septic shock due to small bowel obstruction and gangrene. Off pressors.On iv fluid and antibiotics. WBC 25K 3. HTN. Continue Lopressor 25 bid. Avoid ACEI or ARB for renal failure 4. Small bowel obstruction status post laparotomy and small bowel resection. S/ P 3rd surgery on 08/02/16. Follow up Dr [place]ri[place]. 5. Respiratory failure. Extubated 6. Renal failure, creatinine 4.4. Today 3.2 DW , son and RN Subjective Subjective Still NPO on TPN.Son and at bedside. Abdominal drain still in place. . No chest pain or SOB. Objective Last 24 Hour Vital Signs Date Time Temp Pulse Resp B/P Pulse Ox O2 Delivery O2 Flow Rate FiO2 08/05/16 16:00 97.7 83 20 168/88 99 Room Air 08/05/16 12:00 97.3 78 18 164/93 99 Room Air 08/05/16 09:00 90 153/85 08/05/16 08:00 97.2 90 20 153/80 99 Room Air 08/05/16 07:30 98 Room Air 21 08/05/16 07:30 Room Air 21 08/05/16 07:25 90 19 Room Air 08/05/16 04:00 97.3 84 19 149/84 99 Room Air 08/05/16 00:29 98.1 84 21 146/84 98 Room Air 08/04/16 21:56 92 163/99 08/04/16 20:00 98.6 92 18 163/99 100 Room Air 08/04/16 19:15 85 18 Room Air 08/04/16 19:15 98 Room Air 21 08/04/16 19:15 Room Air Intake and Output 08/04/16 08/05/16 19:00 07:00 Intake Total 1116 ml 634 ml Output Total 2780 ml Balance 1116 ml -2146 ml IV Total 1116 ml 634 ml Output Urine Total 2750 ml Drainage Total 30 ml Laboratory Tests Test 08/05/16 05:00 White Blood Count 25.4 K/UL (4.8-10.8) *H Red Blood Count 2.88 M/UL (4.70-6.10) L Hemoglobin 8.8 G/DL (14.2-18.0) L Hematocrit 26.2 % (42.0-52.0) L Mean Corpuscular Volume 91 FL (80-99) Mean Corpuscular Hemoglobin 30.6 PG (27.0-31.0) Mean Corpuscular Hemoglobin Concent 33.7 G/DL (32.0-36.0) Red Cell Distribution Width 12.6 % (11.6-14.8) Platelet Count 420 K/UL (150-450) Mean Platelet Volume 6.7 FL (6.5-10.1) Neutrophils (%) (Auto) % (45.0-75.0) Lymphocytes (%) (Auto) % (20.0-45.0) Monocytes (%) (Auto) % (1.0-10.0) Eosinophils (%) (Auto) % (0.0-3.0) Basophils (%) (Auto) % (0.0-2.0) Differential Total Cells Counted 100 Neutrophils % (Manual) 82 % (45-75) H Lymphocytes % (Manual) 6 % (20-45) L Monocytes % (Manual) 7 % (1-10) Eosinophils % (Manual) 3 % (0-3) Basophils % (Manual) 0 % (0-2) Band Neutrophils 2 % (0-8) Platelet Estimate Increased H Platelet Morphology Normal Red Blood Cell Morphology Normal Sodium Level 143 mEQ/L (135-145) Potassium Level 3.5 mEQ/L (3.4-4.9) Chloride Level 104 mEQ/L (98-107) Carbon Dioxide Level 23 mEQ/L (20-30) Anion Gap 16 (5-15) H Blood Urea Nitrogen 33 mg/dL (7-23) H Creatinine 3.2 mg/dL (0.7-1.2) H Estimat Glomerular Filtration Rate 19.6 mL/min (>60) Glucose Level 264 mg/dL (74-106) H Uric Acid 4.0 mg/dL (3.0-7.5) Calcium Level 7.9 mg/dL (8.6-10.2) L Phosphorus Level 3.1 mg/dL (2.5-4.8) Magnesium Level 1.9 mg/dL (1.7-2.5) Total Bilirubin 0.7 mg/dL (0.0-1.2) Aspartate Amino Transf (AST/SGOT) 20 U/L (5-40) Alanine Aminotransferase (ALT/SGPT) 31 U/L (3-41) Alkaline Phosphatase 247 U/L (40-129) H C-Reactive Protein, Quantitative 15.8 mg/dL (< 0.5) H Pro-B-Type Natriuretic Peptide 1415 pg/mL (0-125) H Total Protein 5.6 g/dL (6.6-8.7) L Albumin 2.5 g/dL (3.5-5.2) L Globulin 3.1 g/dL Albumin/Globulin Ratio 0.8 (1.0-2.7) L Objective HEAD AND NECK: No JVD. NG to suction LUNGS: Clear CARDIOVASCULAR: Nl S1 and S2 with no gallop or murmur. ABDOMEN: Post median laparotomy. [place] drain still draining. EXTREMITIES: No pitting edema. HONEY DUKE Aug 05, 2016 17:48
[2016-08-05 20:00] VITALS: BP 161/88
[2016-08-05] MEDS: Tamsulosin 0.4mg cap ORAL SCH (21:07)
[2016-08-05] MEDS: Fat Emulsion Iv 20% 240 ML in Tpn 1,992 ML IV SCH (21:25)
[2016-08-06] VITALS: BP 164/94
[2016-08-06 04:00] VITALS: BP 159/98
[2016-08-06] MEDS: NovoLOG Insulin Flexpen SUBQ SCH ×4 (05:57→18:15)
[2016-08-06] MEDS: Zosyn 2.25 gm in D5W 55ml IV SCH ×3 (05:59→21:14)
[2016-08-06 07:24] LABS: MEAN CORPUSCULAR HEMOGLOBIN 30.7 PG (27.0-31.0); MEAN CORPUSCULAR HGB CONC 32.8 G/DL (32.0-36.0); MEAN CORPUSCULAR VOLUME 94 FL (80-99); MEAN PLATELET VOLUME 6.4 FL (6.5-10.1); PLATELET COUNT 448 K/UL (150-450); RED CELL DISTRIBUTION WIDTH 12.6 % (11.6-14.8)
[2016-08-06 07:32] LABS: WHITE BLOOD COUNT 24.7 K/UL (4.8-10.8)
[2016-08-06 07:45] LABS: MAGNESIUM 1.8 MG/DL (1.5-2.4); PHOSPHORUS 3.1 MG/DL (2.5-4.9); URIC ACID 3.4 MG/DL (2.6-7.2)
[2016-08-06 08:00] VITALS: BP 171/97
--- NOTE | 2016-08-06 08:57 | General Progress Note ---
Assessment/Plan Problem List: (1) Pancreatitis ICD Codes: K85.90 - Acute pancreatitis without necrosis or infection, unspecified SNOMED: 39389673 (2) Leak of anastomosis between gastrointestinal structures ICD Codes: K91.89 - Other postprocedural complications and disorders of digestive system SNOMED: 168520000 (3) SBO (small bowel obstruction) ICD Codes: K56.69 - Other intestinal obstruction SNOMED: 362383528 (4) Abdominal pain ICD Codes: R10.9 - Unspecified abdominal pain SNOMED: 16101469 (5) Sepsis ICD Codes: A41.9 - Sepsis, unspecified organism SNOMED: 82769235 Assessment/Plan Assessment - SBO / gangrene - resected - septic shock - recovered - ATN - abnormal LFT - ? shocked liver - lactic acidosis - improved - s/p ex lap for anastomotic leak - azotemia Recommendations IVF NPO NGT TPN abx PPI follow labs and exam surgical f/u OOB repeat amylase and lipase Subjective ROS Limited/Unobtainable: Yes Allergies: Coded Allergies: No Known Allergies (Unverified , 07/26/16) Subjective still has abd pain Objective Last 24 Hour Vital Signs Date Time Temp Pulse Resp B/P Pulse Ox O2 Delivery O2 Flow Rate FiO2 08/06/16 04:00 97.7 89 20 159/98 98 Room Air 08/06/16 00:00 97.2 83 21 164/94 99 Room Air 08/05/16 21:07 97 161/88 08/05/16 20:22 Room Air 08/05/16 20:22 99 Room Air 08/05/16 20:22 97 20 Room Air 08/05/16 20:00 97.0 84 14 161/88 98 Room Air 08/05/16 16:00 97.7 83 20 168/88 99 Room Air 08/05/16 12:00 97.3 78 18 164/93 99 Room Air 08/05/16 09:00 90 153/85 Intake and Output 08/05/16 08/06/16 19:00 07:00 Intake Total 2059 ml 186 ml Output Total 1653 ml 3508 ml Balance 406 ml -3322 ml IV Total 2059 ml 186 ml Output Urine Total 1500 ml 3325 ml Drainage Total 13 ml 133 ml Other 140 ml 50 ml # Bowel Movements 2 2 Laboratory Tests 08/06/16 05:40: White Blood Count 24.7*H, Red Blood Count 2.90L, Hemoglobin 8.9L, Hematocrit 27.2L, Mean Corpuscular Volume 94, Mean Corpuscular Hemoglobin 30.7, Mean Corpuscular Hemoglobin Concent 32.8, Red Cell Distribution Width 12.6, Platelet Count 448, Mean Platelet Volume 6.4L, Neutrophils (%) (Auto) , Lymphocytes (%) ( Auto) , Monocytes (%) (Auto) , Eosinophils (%) (Auto) , Basophils (%) (Auto) , Neutrophils % (Manual) [Pending], Lymphocytes % (Manual) [Pending], Platelet Estimate [Pending], Platelet Morphology [Pending], Uric Acid 3.4, Phosphorus Level 3.1, Magnesium Level 1.8, Gamma Glutamyl Transpeptidase 389H, Pro-B-Type Natriuretic Peptide 1937H, Lipase 218H General Appearance: alert EENT: normal ENT inspection Neck: supple Cardiovascular: normal rate Respiratory/Chest: decreased breath sounds Abdomen: soft, hypoactive bowel sounds, tender Extremities: non-tender RIDGE STATON Aug 06, 2016 08:57
--- NOTE | 2016-08-06 09:10 | General Progress Note ---
Assessment/Plan Assessment/Plan ASSESSMENT: 1. Leukocytosis Likely 2/2 underlying sepsis vs reactive. Improved from yesterday. 2. Small bowel obstruction. status post 3rd exploratory laparotomy; s/p resection gangrene 3. Anemia 2/2 chronic disease, does not require iron 4. Sepsis, likely contributing to leukocytosis. 5. Abdominal pain due to small bowel obstruction. 6. Thrombocytopenia - better RECOMMENDATIONS: 1. Monitor wbc counts 2. Have reviewed anemia workup, does not need iron 3. Follow up on Surgery, GI, ID recs 5. Transfuse to hgb >7. 6. DVT ppx lovenox 7. GI ppx ppi 8. DW staff Thank you, Estelita Mendez MD Subjective Constitutional: Reports: no symptoms HEENT: Reports: no symptoms Cardiovascular: Reports: no symptoms Respiratory: Reports: no symptoms Gastrointestinal/Abdominal: Reports: poor appetite Genitourinary: Reports: no symptoms 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: Reports: no symptoms Endocrine: Reports: no symptoms Hematologic/Lymphatic: Reports: anemia Allergies: Coded Allergies: No Known Allergies (Unverified , 07/26/16) Subjective no bleeding, has passed gas, still some abd bloating Objective Last 24 Hour Vital Signs Date Time Temp Pulse Resp B/P Pulse Ox O2 Delivery O2 Flow Rate FiO2 08/06/16 04:00 97.7 89 20 159/98 98 Room Air 08/06/16 00:00 97.2 83 21 164/94 99 Room Air 08/05/16 21:07 97 161/88 08/05/16 20:22 Room Air 08/05/16 20:22 99 Room Air 08/05/16 20:22 97 20 Room Air 08/05/16 20:00 97.0 84 14 161/88 98 Room Air 08/05/16 16:00 97.7 83 20 168/88 99 Room Air 08/05/16 12:00 97.3 78 18 164/93 99 Room Air Intake and Output 08/05/16 08/06/16 19:00 07:00 Intake Total 2059 ml 186 ml Output Total 1653 ml 3508 ml Balance 406 ml -3322 ml IV Total 2059 ml 186 ml Output Urine Total 1500 ml 3325 ml Drainage Total 13 ml 133 ml Other 140 ml 50 ml # Bowel Movements 2 2 Laboratory Tests 08/06/16 05:40: White Blood Count 24.7*H, Red Blood Count 2.90L, Hemoglobin 8.9L, Hematocrit 27.2L, Mean Corpuscular Volume 94, Mean Corpuscular Hemoglobin 30.7, Mean Corpuscular Hemoglobin Concent 32.8, Red Cell Distribution Width 12.6, Platelet Count 448, Mean Platelet Volume 6.4L, Neutrophils (%) (Auto) , Lymphocytes (%) ( Auto) , Monocytes (%) (Auto) , Eosinophils (%) (Auto) , Basophils (%) (Auto) , Neutrophils % (Manual) [Pending], Lymphocytes % (Manual) [Pending], Platelet Estimate [Pending], Platelet Morphology [Pending], Uric Acid 3.4, Phosphorus Level 3.1, Magnesium Level 1.8, Gamma Glutamyl Transpeptidase 389H, Pro-B-Type Natriuretic Peptide 1937H, Lipase 218H General Appearance: no apparent distress EENT: TMs normal Neck: supple Cardiovascular: regular rhythm Respiratory/Chest: normal breath sounds Genitourinary/Rectal: normal prostate exam Extremities: non-tender Edema: 1+ Leg (L), 1+ Leg (R) Edema: mild edema Neurologic: no motor/sensory deficits Skin: warm/dry ESTELITA MENDEZ Aug 06, 2016 09:10
[2016-08-06] MEDS: Metoprolol 25mg tab ORAL SCH ×2 (09:40→20:22)
[2016-08-06] MEDS: Pantoprazole Inj IVP SCH (09:40)
[2016-08-06] MEDS: Enoxaparin 30mg Inj SUBQ SCH (09:43)
--- NOTE | 2016-08-06 09:47 | Pulmonology Progress Note ---
Assessment/Plan Assessment/Plan ASSESSMENT septic shock- resolved sepsis 2 to SBO and gangrenous bowel SBO with gangrenous bowel intubated for surgery s/p extubation MIGNON 2 to sepsis s/p1/ exp lap and lysis of adhesion anastomosis leak s/p 08/02 exp lap and resection of anastomosis with anastomosis of SB to colon NSTEMI HTN anemia abnormal LFT PLAN OF CARE [facility] floor TPN and lipids surgery and GI follow abx, ID follows blood cx, stool C dif, abdominal fluid cx- all negative O2, HHN prn encourage IS q1 , pain management with [employer]OM[employer]UDIES PROFESSOR elevated troponin likely 2 to demand ischemia- per cardio,. last troponin 0.33 ECG -no ischemic pattern ECHO with preserved EF, no evidence of pulmonary HTN BP management with CCB and BB, no LINNEA due to MIGNON renal parameters with small improvement, IVF, nephro follows avoid nephrotoxic, monitor renal parameters and lytes with Canales ( due to urinary retention), imaging - no evidence of kidney, prostate or bladder pathology, trend LFT, likely 2 to shocked liver, anemia workup noted, no need for iron - per heme,. follows monitor HH, transfuse prn had BM, passing gas - ? start diet as per surgery discretion no output from NGT -? dc NGT - per surgery CT A/P done 08/05, no results yet case discussed and evaluated by supervising physician Subjective Allergies: Coded Allergies: No Known Allergies (Unverified , 07/26/16) Subjective on [facility] floor sitting in the chair afebrile, still with significant leukocytosis denies pain, passing gas, had BM using WOMEN'S STUDIES PROFESSOR sparingly no n/v/ denies SOB, chest pain no further output form NGT daughter at the bedside Objective Last 24 Hour Vital Signs Date Time Temp Pulse Resp B/P Pulse Ox O2 Delivery O2 Flow Rate FiO2 08/06/16 08:00 96.8 98 20 171/97 99 Room Air 08/06/16 04:00 97.7 89 20 159/98 98 Room Air 08/06/16 00:00 97.2 83 21 164/94 99 Room Air 08/05/16 21:07 97 161/88 08/05/16 20:22 Room Air 08/05/16 20:22 99 Room Air 08/05/16 20:22 97 20 Room Air 08/05/16 20:00 97.0 84 14 161/88 98 Room Air 08/05/16 16:00 97.7 83 20 168/88 99 Room Air 08/05/16 12:00 97.3 78 18 164/93 99 Room Air Intake and Output 08/05/16 08/06/16 18:59 06:59 Intake Total 2059 ml 279 ml Output Total 1653 ml 3508 ml Balance 406 ml -3229 ml IV Total 2059 ml 279 ml Output Urine Total 1500 ml 3325 ml Drainage Total 13 ml 133 ml Other 140 ml 50 ml # Bowel Movements 2 2 Objective General Appearance: no acute distress, other - awake, alert, oriented German speaking male in NAD HEENT: normocephalic, atraumatic, anicteric, PERRL, EOMI, supple, no JVD, O2 via NC , NGT to LIS Respiratory/Chest: chest wall non-tender, lungs clear, no respiratory distress , no accessory muscle use Cardiovascular: normal peripheral pulses, normal rate, regular rhythm, no JVD Abdomen: other - abdomen soft, mild distention, mild tenderness, no BS, abdominal dressing C/D/I, [place] x2 with scant amount of serous drainage Genitourinary: normal external genitalia Extremities: no edema, pedal pulses normal 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: no motor/sensory deficits, alert, oriented x 3, responsive Musculoskeletal: normal muscle bulk Microbiology Date/Time Source Procedure Growth Status 08/04/16 11:30 Blood Blood Culture - Preliminary NO GROWTH AFTER 24 HOURS Resulted 08/04/16 11:15 Blood Blood Culture - Preliminary NO GROWTH AFTER 24 HOURS Resulted Laboratory Tests 08/06/16 03:30: Sodium Level [Pending], Potassium Level [Pending], Chloride Level [Pending], Carbon Dioxide Level [Pending], Blood Urea Nitrogen [Pending], Creatinine [ Pending], Estimat Glomerular Filtration Rate [Pending], Glucose Level [Pending] , Calcium Level [Pending], Total Bilirubin [Pending], Aspartate Amino Transf ( AST/SGOT) [Pending], Alanine Aminotransferase (ALT/SGPT) [Pending], Alkaline Phosphatase [Pending], C-Reactive Protein, Quantitative [Pending], Total Protein [Pending], Albumin [Pending], Globulin [Pending] 08/06/16 05:40: White Blood Count 24.7*H, Red Blood Count 2.90L, Hemoglobin 8.9L, Hematocrit 27.2L, Mean Corpuscular Volume 94, Mean Corpuscular Hemoglobin 30.7, Mean Corpuscular Hemoglobin Concent 32.8, Red Cell Distribution Width 12.6, Platelet Count 448, Mean Platelet Volume 6.4L, Neutrophils (%) (Auto) , Lymphocytes (%) ( Auto) , Monocytes (%) (Auto) , Eosinophils (%) (Auto) , Basophils (%) (Auto) , Neutrophils % (Manual) [Pending], Lymphocytes % (Manual) [Pending], Platelet Estimate [Pending], Platelet Morphology [Pending], Uric Acid 3.4, Phosphorus Level 3.1, Magnesium Level 1.8, Gamma Glutamyl Transpeptidase 389H, Pro-B-Type Natriuretic Peptide 1937H, Lipase 218H Current Medications Medications (Trade) Dose Ordered Sig/Arti Route PRN Reason Start Time Stop Time Status Last Admin Dose Admin Acetaminophen (Tylenol) 650 mg Q4H PRN RECTAL FEVER>100.5 08/03/16 19:00 09/02/16 18:59 Albuterol/ Ipratropium 3 ml 3 ml Q4H PRN HHN Shortness of Breath 08/04/16 09:30 08/09/16 09:29 Dextrose 1,000 ml @ 0 mls/hr Q24H PRN IV PN interrupted or unavailable 08/03/16 21:00 09/02/16 20:59 Dextrose (Dextrose 50%) STAT PRN IV Hypoglycemia 08/03/16 19:00 09/02/16 18:59 Diphenhydramine HCl (Benadryl) 25 mg Q6H PRN IVP Itching/Pruritis 08/05/16 13:00 08/07/16 23:59 Enoxaparin Sodium (Lovenox) 30 mg DAILY SUBQ 08/04/16 09:00 09/03/16 08:59 08/05/16 09:00 Fat Emulsion Intravenous 240 ml/Amino Acids/ Electrolytes/ Dextrose 2,232 ml @ 93 mls/hr Q24H IV 08/04/16 21:00 09/03/16 20:59 08/05/16 21:25 Fluconazole/ Sodium Chloride (Diflucan 400mg/ 200ml Premix) 200 ml @ 100 mls/hr Q24H IV 08/05/16 09:00 08/12/16 08:59 08/05/16 09:00 Hydromorphone HCl (Dilaudid) 0.5 mg Q3H PRN IVP Pain Score 1-3 08/03/16 19:30 08/10/16 19:29 08/04/16 16:55 Hydromorphone HCl (Dilaudid) 1 mg Q3H PRN IVP pain score 4-6 08/04/16 20:30 08/11/16 20:29 08/05/16 19:03 Hydromorphone HCl (Dilaudid) 2 mg Q3H PRN IVP pain score 7-10 08/04/16 20:30 08/11/16 20:29 08/06/16 08:24 Insulin Aspart (NovoLOG) No Dose Q6HR SUBQ 08/04/16 00:00 09/03/16 00:00 08/06/16 05:57 Linezolid (Zyvox) 300 ml @ 300 mls/hr Q12HR@0600,1800 IVPB 08/04/16 06:00 08/09/16 05:59 08/06/16 05:59 Metoprolol Tartrate (Lopressor) 25 mg Q12HR ORAL 08/03/16 21:00 09/02/16 20:59 08/05/16 21:07 Ondansetron HCl (Zofran) 4 mg Q6H PRN IVP Nausea & Vomiting 08/03/16 19:10 09/02/16 19:09 Pantoprazole (Protonix) 40 mg DAILY IVP 08/04/16 09:00 09/03/16 08:59 08/05/16 09:00 Piperacillin Sod/ Tazobactam Sod 2.25 gm/Dextrose 55 ml @ 110 mls/hr Q8HR IV 08/04/16 14:00 08/09/16 13:59 08/06/16 05:59 Simethicone (Mylicon) 80 mg QIDPRN PRN NG GAS PAIN 08/03/16 19:00 09/02/16 18:59 08/04/16 19:39 Tamsulosin HCl (Flomax) 0.4 mg BEDTIME ORAL 08/03/16 21:00 09/02/16 20:59 08/05/16 21:07 Temazepam (Restoril) 7.5 mg HSPRN PRN ORAL Insomnia 08/03/16 20:00 08/10/16 19:59 08/06/16 01:50 Tello ([facility])Tess NP Aug 06, 2016 09:47
--- NOTE | 2016-08-06 10:15 | Diagnostic Imaging Report ---
Indication: Abdominal pain Technique: CT of the abdomen and pelvis utilizing automated exposure control with oral contrast. Venous scanning performed. CT dose: Total DLP 922 mGycm; CTDI vol 15.5 mGy Comparison: 08/02/16 Findings: Small bilateral pleural effusions are seen with lung base atelectasis. Nasogastric tube is present within the stomach. There is gastric thickening versus underdistention. Liver, adrenal glands, spleen and and pancreas are unremarkable. Nonobstructive calculi are seen of the bilateral kidneys. There is no hydronephrosis. Canales catheter is noted in the bladder. Surgical drains are seen in the pelvis and central abdomen. Scattered foci of extraluminal air are demonstrated. There is wall thickening involving small bowel loops and portions of the colon for example the sigmoid colon and proximal ascending colon. No drainable abscess is seen at this time. Tiny fat-containing bilateral inguinal hernias are present. Midline skin cristy are seen. Degenerative changes of the spine are noted. Impression: Interval decrease in right lower quadrant and mesenteric extraluminal air and high density presumed oral contrast. Some residual fluid and extraluminal air noted within the mesentery and right lower quadrant. No drainable abscess. Persistence of bowel leak not completely excluded. Followup recommended as indicated. Wall thickening of small bowel and within portions of the colon for example the sigmoid and ascending colon suggestive of nonspecific enteritis. Clinical correlation recommended. No obvious mechanical obstruction with passage of contrast the colon. Nonobstructive bilateral renal calculi. Nasogastric tube, surgical drains and Canales catheter. Bilateral pleural effusions. Other findings as above. The CT scanner at [facility] is accredited by the [employer] and the scans are performed using protocols designed to limit radiation exposure to as low as reasonably achievable to attain images of sufficient resolution adequate for diagnostic evaluation.
[2016-08-06 10:31] LABS: ALBUMIN/GLOBULIN RATIO 0.8 (1.0-2.7); CALCIUM 7.8 mg/dL (8.6-10.2); CREATININE 2.8 mg/dL (0.7-1.2); CRP QUANT 8.9 mg/dL (< 0.5); GLOMERULAR FILTRATION RATE 22.9 mL/min (>60); POTASSIUM 4.4 mEQ/L (3.4-4.9); TOTAL PROTEIN 5.5 g/dL (6.6-8.7)
[2016-08-06 10:38] LABS: BAND NEUTROPHILS % (MANUAL) 2 % (0-8); BASOPHILS % (MANUAL) 0 % (0-2); EOSINOPHILS % (MANUAL) 1 % (0-3); LYMPHOCYTES % (MANUAL) 5 % (20-45); NEUTROPHILS % (MANUAL) 86 % (45-75); PLATELET ESTIMATE ADEQUATE; PLATELET MORPHOLOGY NORMAL; TOTAL CELLS COUNTED 100
[2016-08-06 10:39] LABS: HYPOCHROMASIA 1+
--- NOTE | 2016-08-06 11:07 | General Progress Note ---
Assessment/Plan Status: stable - from renal stand Assessment/Plan status: Septic Shock leading to acute renal failure- Cr peaked 4.8 now down to 2.7 Abdominal Surgery 07/26/16 then again 05/27 and revision 08/02 Plan; re image- CT with po contrast negative- on TPN post op care- Antibiotics- Protonix IV monitor renal parameters- discussed with daughter Subjective ROS Limited/Unobtainable: No Constitutional: Reports: malaise Gastrointestinal/Abdominal: Reports: abdomen distended, abdominal pain Allergies: Coded Allergies: No Known Allergies (Unverified , 07/26/16) Objective Last 24 Hour Vital Signs Date Time Temp Pulse Resp B/P Pulse Ox O2 Delivery O2 Flow Rate FiO2 08/06/16 09:43 87 18 Room Air 21 08/06/16 09:40 98 171/97 08/06/16 08:54 97.7 08/06/16 08:00 96.8 98 20 171/97 99 Room Air 08/06/16 04:00 97.7 89 20 159/98 98 Room Air 08/06/16 00:00 97.2 83 21 164/94 99 Room Air 08/05/16 21:07 97 161/88 08/05/16 20:22 Room Air 08/05/16 20:22 99 Room Air 08/05/16 20:22 97 20 Room Air 08/05/16 20:00 97.0 84 14 161/88 98 Room Air 08/05/16 16:00 97.7 83 20 168/88 99 Room Air 08/05/16 12:00 97.3 78 18 164/93 99 Room Air Intake and Output 08/05/16 08/06/16 19:00 07:00 Intake Total 2059 ml 186 ml Output Total 1653 ml 3508 ml Balance 406 ml -3322 ml IV Total 2059 ml 186 ml Output Urine Total 1500 ml 3325 ml Drainage Total 13 ml 133 ml Other 140 ml 50 ml # Bowel Movements 2 2 Laboratory Tests 08/06/16 03:30: Sodium Level 145, Potassium Level 4.4, Chloride Level 105, Carbon Dioxide Level 20, Anion Gap 20H, Blood Urea Nitrogen 31H, Creatinine 2.8H, Estimat Glomerular Filtration Rate 22.9, Glucose Level 186H, Calcium Level 7.8L, Total Bilirubin 1.0, Aspartate Amino Transf (AST/SGOT) 39, Alanine Aminotransferase (ALT/SGPT) 35, Alkaline Phosphatase 299H, C-Reactive Protein, Quantitative 8.9H, Total Protein 5.5L, Albumin 2.6L, Globulin 2.9, Albumin/Globulin Ratio 0.8L 08/06/16 05:40: White Blood Count 24.7*H, Red Blood Count 2.90L, Hemoglobin 8.9L, Hematocrit 27.2L, Mean Corpuscular Volume 94, Mean Corpuscular Hemoglobin 30.7, Mean Corpuscular Hemoglobin Concent 32.8, Red Cell Distribution Width 12.6, Platelet Count 448, Mean Platelet Volume 6.4L, Neutrophils (%) (Auto) , Lymphocytes (%) ( Auto) , Monocytes (%) (Auto) , Eosinophils (%) (Auto) , Basophils (%) (Auto) , Differential Total Cells Counted 100, Neutrophils % (Manual) 86H, Lymphocytes % (Manual) 5L, Monocytes % (Manual) 6, Eosinophils % (Manual) 1, Basophils % ( Manual) 0, Band Neutrophils 2, Platelet Estimate Adequate, Platelet Morphology Normal, Hypochromasia 1+, Anisocytosis , Uric Acid 3.4, Phosphorus Level 3.1, Magnesium Level 1.8, Gamma Glutamyl Transpeptidase 389H, Pro-B-Type Natriuretic Peptide 1937H, Lipase 218H General Appearance: mild distress Respiratory/Chest: decreased breath sounds Abdomen: distended Objective no other changes in PE REBECCA SCHULTE Aug 06, 2016 11:07
--- NOTE | 2016-08-06 11:37 | General Progress Note ---
Assessment/Plan Problem List: (1) Ileus ICD Codes: K56.7 - Ileus, unspecified SNOMED: 830864309 (2) Sepsis ICD Codes: A41.9 - Sepsis, unspecified organism SNOMED: 24328967 (3) Abdominal pain ICD Codes: R10.9 - Unspecified abdominal pain SNOMED: 61802126 (4) SBO (small bowel obstruction) ICD Codes: K56.69 - Other intestinal obstruction SNOMED: 217955388 (5) Abdominal gas pain ICD Codes: R14.1 - Gas pain SNOMED: 61617918 (6) Enteritis ICD Codes: K52.9 - Noninfective gastroenteritis and colitis, unspecified SNOMED: 78560194 Assessment/Plan s/p third explo lap s/p re anstamosis by dr zee sepsis persistent leukocytosis abx per id s/ leak at anastamosis site s/p repair of leak with new anastamosis afebrile Subjective Gastrointestinal/Abdominal: Reports: abdominal pain Allergies: Coded Allergies: No Known Allergies (Unverified , 07/26/16) Objective Last 24 Hour Vital Signs Date Time Temp Pulse Resp B/P Pulse Ox O2 Delivery O2 Flow Rate FiO2 08/06/16 09:43 87 18 Room Air 21 08/06/16 09:40 98 171/97 08/06/16 08:54 97.7 08/06/16 08:00 96.8 98 20 171/97 99 Room Air 08/06/16 04:00 97.7 89 20 159/98 98 Room Air 08/06/16 00:00 97.2 83 21 164/94 99 Room Air 08/05/16 21:07 97 161/88 08/05/16 20:22 Room Air 08/05/16 20:22 99 Room Air 08/05/16 20:22 97 20 Room Air 08/05/16 20:00 97.0 84 14 161/88 98 Room Air 08/05/16 16:00 97.7 83 20 168/88 99 Room Air 08/05/16 12:00 97.3 78 18 164/93 99 Room Air Intake and Output 08/05/16 08/06/16 19:00 07:00 Intake Total 2059 ml 186 ml Output Total 1653 ml 3508 ml Balance 406 ml -3322 ml IV Total 2059 ml 186 ml Output Urine Total 1500 ml 3325 ml Drainage Total 13 ml 133 ml Other 140 ml 50 ml # Bowel Movements 2 2 Laboratory Tests 08/06/16 03:30: Sodium Level 145, Potassium Level 4.4, Chloride Level 105, Carbon Dioxide Level 20, Anion Gap 20H, Blood Urea Nitrogen 31H, Creatinine 2.8H, Estimat Glomerular Filtration Rate 22.9, Glucose Level 186H, Calcium Level 7.8L, Total Bilirubin 1.0, Aspartate Amino Transf (AST/SGOT) 39, Alanine Aminotransferase (ALT/SGPT) 35, Alkaline Phosphatase 299H, C-Reactive Protein, Quantitative 8.9H, Total Protein 5.5L, Albumin 2.6L, Globulin 2.9, Albumin/Globulin Ratio 0.8L 08/06/16 05:40: White Blood Count 24.7*H, Red Blood Count 2.90L, Hemoglobin 8.9L, Hematocrit 27.2L, Mean Corpuscular Volume 94, Mean Corpuscular Hemoglobin 30.7, Mean Corpuscular Hemoglobin Concent 32.8, Red Cell Distribution Width 12.6, Platelet Count 448, Mean Platelet Volume 6.4L, Neutrophils (%) (Auto) , Lymphocytes (%) ( Auto) , Monocytes (%) (Auto) , Eosinophils (%) (Auto) , Basophils (%) (Auto) , Differential Total Cells Counted 100, Neutrophils % (Manual) 86H, Lymphocytes % (Manual) 5L, Monocytes % (Manual) 6, Eosinophils % (Manual) 1, Basophils % ( Manual) 0, Band Neutrophils 2, Platelet Estimate Adequate, Platelet Morphology Normal, Hypochromasia 1+, Anisocytosis , Uric Acid 3.4, Phosphorus Level 3.1, Magnesium Level 1.8, Gamma Glutamyl Transpeptidase 389H, Pro-B-Type Natriuretic Peptide 1937H, Lipase 218H Abdomen: tender Teo Love MD Aug 06, 2016 11:37
--- NOTE | 2016-08-06 11:45 | Diagnostic Imaging Report ---
Indication: Chest Pain Comparison: None A single view chest radiograph was obtained. Findings: There is a right central line present in good position. Heart size is normal. There is mild left basal atelectasis. Lungs are clear otherwise. Impression: Right jugular line in good position Mild left basal atelectasis
--- NOTE | 2016-08-06 11:45 | Diagnostic Imaging Report ---
Indication: Abdominal pain Technique: Continuous helical transaxial imaging of the abdomen and pelvis was obtained from the lung bases to the pubic symphysis. No intravenous contrast was administered. Coronal 2-D reformats were also obtained. Total Dose length Product (DLP): [address] Dose Index Volume (CTDIvol): 13 mGy Comparison: none Findings: There is an approximately 4 x 1 x 4 cm extraluminal air-fluid level containing high density within the midabdomen (images 84 - 102, series 3). There are surgical clips just right of the collection. The presence of high density suggests the possibility of a small anastomotic leak with extravasation of enteric contrast material. There are small bilateral pleural effusions present. There is posterior basilar atelectasis present. There is thickening of the gallbladder wall. No gallstones are demonstrated on the current examination which is more limited than ultrasound. The patient is status post recent abdominal surgery with skin cristy noted vertically in the midline. There is a surgical drain present in the abdomen and trainee the right side terminating in the left lower quadrant. Mesenteric stranding, trace amount of free fluid and air noted in the abdomen especially in the area of the mesenteric root. There is some distention of small bowel but there is contrast noted throughout the small bowel as well as colon and there is no obstruction. Findings likely on the basis of a postoperative ileus. Small bilateral punctate stones within both kidneys. There is no hydronephrosis. There is air in the urinary bladder. Prostate calcium noted. Bilateral inguinal hernias again noted. Impression: Small extraluminal fluid and air collection in the mesenteric root adjacent to the area of anastomosis and surgery. The collection is partially high density and suspicious for extravasated contrast which suggests an anastomotic leak. Followup and clinical correlation is recommended. No evidence of small bowel obstruction. Some dilatation of small bowel likely ileus. Some scattered fluid not unexpected given recent surgery. Limited examination due to absence of IV contrast. Small basilar effusions and posterior basal atelectasis. Mild thickening of the gallbladder wall nonspecific Tiny nonobstructive stones within both kidneys. Bilateral hernias containing fat Critical value communication. Findings were discussed via telephone with Dr. Jennings and Dr. Murrieta via telephone at 08/02/16 4:44pm . The CT scanner at [facility] is accredited by the [employer] and the scans are performed using protocols designed to limit radiation exposure to as low as reasonably achievable to attain images of sufficient resolution adequate for diagnostic evaluation.
[2016-08-06 12:00] VITALS: BP 170/102
--- NOTE | 2016-08-06 12:14 | General Surgery Progress Note ---
General Surgery-Progress Note Subjective Procedure Performed Exploratory Laparotomy and resection of anastomosis with anstomosis of small bowel to colon Symptoms: improved Objective Last 24 Hour Vital Signs Date Time Temp Pulse Resp B/P Pulse Ox O2 Delivery O2 Flow Rate FiO2 08/06/16 09:43 87 18 Room Air 21 08/06/16 09:40 98 171/97 08/06/16 08:54 97.7 08/06/16 08:00 96.8 98 20 171/97 99 Room Air 08/06/16 04:00 97.7 89 20 159/98 98 Room Air 08/06/16 00:00 97.2 83 21 164/94 99 Room Air 08/05/16 21:07 97 161/88 08/05/16 20:22 Room Air 08/05/16 20:22 99 Room Air 08/05/16 20:22 97 20 Room Air 08/05/16 20:00 97.0 84 14 161/88 98 Room Air 08/05/16 16:00 97.7 83 20 168/88 99 Room Air 08/05/16 12:00 97.3 78 18 164/93 99 Room Air I&O Intake and Output 08/05/16 08/06/16 19:00 07:00 Intake Total 2059 ml 186 ml Output Total 1653 ml 3508 ml Balance 406 ml -3322 ml IV Total 2059 ml 186 ml Output Urine Total 1500 ml 3325 ml Drainage Total 13 ml 133 ml Other 140 ml 50 ml # Bowel Movements 2 2 Wound: clean Drains: curtis Respiratory: clear Abdomen: soft, non-tender, present bowel sounds Extremities: no tenderness Laboratory Tests Test 08/06/16 03:30 08/06/16 05:40 Sodium Level 145 mEQ/L (135-145) Potassium Level 4.4 mEQ/L (3.4-4.9) Chloride Level 105 mEQ/L (98-107) Carbon Dioxide Level 20 mEQ/L (20-30) Anion Gap 20 (5-15) H Blood Urea Nitrogen 31 mg/dL (7-23) H Creatinine 2.8 mg/dL (0.7-1.2) H Estimat Glomerular Filtration Rate 22.9 mL/min (>60) Glucose Level 186 mg/dL (74-106) H Calcium Level 7.8 mg/dL (8.6-10.2) L Total Bilirubin 1.0 mg/dL (0.0-1.2) Aspartate Amino Transf (AST/SGOT) 39 U/L (5-40) Alanine Aminotransferase (ALT/SGPT) 35 U/L (3-41) Alkaline Phosphatase 299 U/L (40-129) H C-Reactive Protein, Quantitative 8.9 mg/dL (< 0.5) H Total Protein 5.5 g/dL (6.6-8.7) L Albumin 2.6 g/dL (3.5-5.2) L Globulin 2.9 g/dL Albumin/Globulin Ratio 0.8 (1.0-2.7) L White Blood Count 24.7 K/UL (4.8-10.8) *H Red Blood Count 2.90 M/UL (4.70-6.10) L Hemoglobin 8.9 G/DL (14.2-18.0) L Hematocrit 27.2 % (42.0-52.0) L Mean Corpuscular Volume 94 FL (80-99) Mean Corpuscular Hemoglobin 30.7 PG (27.0-31.0) Mean Corpuscular Hemoglobin Concent 32.8 G/DL (32.0-36.0) Red Cell Distribution Width 12.6 % (11.6-14.8) Platelet Count 448 K/UL (150-450) Mean Platelet Volume 6.4 FL (6.5-10.1) L Neutrophils (%) (Auto) % (45.0-75.0) Lymphocytes (%) (Auto) % (20.0-45.0) Monocytes (%) (Auto) % (1.0-10.0) Eosinophils (%) (Auto) % (0.0-3.0) Basophils (%) (Auto) % (0.0-2.0) Differential Total Cells Counted 100 Neutrophils % (Manual) 86 % (45-75) H Lymphocytes % (Manual) 5 % (20-45) L Monocytes % (Manual) 6 % (1-10) Eosinophils % (Manual) 1 % (0-3) Basophils % (Manual) 0 % (0-2) Band Neutrophils 2 % (0-8) Platelet Estimate Adequate Platelet Morphology Normal Hypochromasia 1+ Anisocytosis Uric Acid 3.4 MG/DL (2.6-7.2) Phosphorus Level 3.1 MG/DL (2.5-4.9) Magnesium Level 1.8 MG/DL (1.5-2.4) Gamma Glutamyl Transpeptidase 389 U/L (8-61) H Pro-B-Type Natriuretic Peptide 1937 pg/mL (0-125) H Lipase 218 U/L (< 60) H Assessment Post-op Diagnosis anastomosis leakage Plan Additional Comments continue IV antibiotics EDWIN NOGUEIRA Aug 06, 2016 12:14
--- NOTE | 2016-08-06 13:53 | General Progress Note ---
Assessment/Plan Problem List: (1) Ischemic bowel disease ICD Codes: K55.9 - Vascular disorder of intestine, unspecified SNOMED: 40639859 (2) Abdominal pain ICD Codes: R10.9 - Unspecified abdominal pain SNOMED: 39571937 (3) SBO (small bowel obstruction) ICD Codes: K56.69 - Other intestinal obstruction SNOMED: 960621674 Status: stable Subjective Constitutional: Denies: weakness HEENT: Denies: blurred vision, double vision, ear discharge, ear pain, eye pain , mouth pain, mouth swelling, no symptoms, nose congestion, nose pain, other, tearing, throat pain, throat swelling Cardiovascular: Denies: chest pain, edema, irregular heart rate, lightheadedness, no symptoms, other, palpitations, syncope Respiratory: Denies: SOB at rest, SOB with excertion, cough, no symptoms, orthopnea, other, shortness of breath, sputum, stridor, wheezing Gastrointestinal/Abdominal: Reports: black stools, blood in stool, constipated , diarrhea, difficulty swallowing, nausea, no symptoms, other, poor appetite, poor fluid intake, rectal bleeding, tarry stools, vomiting Genitourinary: Denies: burning, discharge, flank pain, frequency, hematuria, incontinence, no symptoms, other, pain, urgency 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: Denies: anxiety, depressed, emotional problems, headache, no symptoms, numbness, other, paresthesia, pre-existing deficit, seizure, tingling, tremors, weakness Allergies: Coded Allergies: No Known Allergies (Unverified , 07/26/16) Subjective Pain is controlled on current regimen. Pain score 2-3/10. Objective Last 24 Hour Vital Signs Date Time Temp Pulse Resp B/P Pulse Ox O2 Delivery O2 Flow Rate FiO2 08/06/16 12:00 98.1 75 20 170/102 97 Room Air 08/06/16 09:43 87 18 Room Air 21 08/06/16 09:40 98 171/97 08/06/16 08:54 97.7 08/06/16 08:00 96.8 98 20 171/97 99 Room Air 08/06/16 04:00 97.7 89 20 159/98 98 Room Air 08/06/16 00:00 97.2 83 21 164/94 99 Room Air 08/05/16 21:07 97 161/88 08/05/16 20:22 Room Air 08/05/16 20:22 99 Room Air 08/05/16 20:22 97 20 Room Air 08/05/16 20:00 97.0 84 14 161/88 98 Room Air 08/05/16 16:00 97.7 83 20 168/88 99 Room Air Intake and Output 08/05/16 08/06/16 19:00 07:00 Intake Total 2059 ml 279 ml Output Total 1653 ml 3508 ml Balance 406 ml -3229 ml IV Total 2059 ml 279 ml Output Urine Total 1500 ml 3325 ml Drainage Total 13 ml 133 ml Other 140 ml 50 ml # Bowel Movements 2 2 Laboratory Tests 08/06/16 03:30: Sodium Level 145, Potassium Level 4.4, Chloride Level 105, Carbon Dioxide Level 20, Anion Gap 20H, Blood Urea Nitrogen 31H, Creatinine 2.8H, Estimat Glomerular Filtration Rate 22.9, Glucose Level 186H, Calcium Level 7.8L, Total Bilirubin 1.0, Aspartate Amino Transf (AST/SGOT) 39, Alanine Aminotransferase (ALT/SGPT) 35, Alkaline Phosphatase 299H, C-Reactive Protein, Quantitative 8.9H, Total Protein 5.5L, Albumin 2.6L, Globulin 2.9, Albumin/Globulin Ratio 0.8L 08/06/16 05:40: White Blood Count 24.7*H, Red Blood Count 2.90L, Hemoglobin 8.9L, Hematocrit 27.2L, Mean Corpuscular Volume 94, Mean Corpuscular Hemoglobin 30.7, Mean Corpuscular Hemoglobin Concent 32.8, Red Cell Distribution Width 12.6, Platelet Count 448, Mean Platelet Volume 6.4L, Neutrophils (%) (Auto) , Lymphocytes (%) ( Auto) , Monocytes (%) (Auto) , Eosinophils (%) (Auto) , Basophils (%) (Auto) , Differential Total Cells Counted 100, Neutrophils % (Manual) 86H, Lymphocytes % (Manual) 5L, Monocytes % (Manual) 6, Eosinophils % (Manual) 1, Basophils % ( Manual) 0, Band Neutrophils 2, Platelet Estimate Adequate, Platelet Morphology Normal, Hypochromasia 1+, Anisocytosis , Uric Acid 3.4, Phosphorus Level 3.1, Magnesium Level 1.8, Gamma Glutamyl Transpeptidase 389H, Pro-B-Type Natriuretic Peptide 1937H, Lipase 218H General Appearance: alert EENT: PERRL/EOMI Neck: non-tender, supple Cardiovascular: normal rate, regular rhythm Respiratory/Chest: lungs clear Abdomen: tender Extremities: non-tender, normal inspection Edema: no edema noted Arm (L), no edema noted Arm (R), no edema noted Leg (L), no edema noted Leg (R), no edema noted Pedal (L), no edema noted Pedal (R), no edema noted Generalized 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
[2016-08-06] MEDS: Hydromorphone 0.5mg/0.5ml inj IVP PRN (14:28)
[2016-08-06] MEDS ORDERED: Tubing IV Secondary IV ONE (15:24)
[2016-08-06] MEDS ORDERED: Sterile Water Irrig 1000ml IRRIG ONE (15:24)
[2016-08-06] MEDS ORDERED: NS 275ml ONE (15:24)
[2016-08-06] MEDS ORDERED: NS Irrig 1000ml ONE (15:24)
[2016-08-06] MEDS ORDERED: D5NS 1000ml IV ONE (15:24)
[2016-08-06] MEDS ORDERED: cloNIDine 0.2mg Tab ORAL ONE (15:45)
--- NOTE | 2016-08-06 15:54 | Infectious Diseases Prog Note ---
Assessment/Plan Problems: (1) Septic shock Assessment & Plan: with persistent leukocytosis on zyvox and zosyn, S/P three EXP LAP, complicated with anastomosis leak , S/P revision, repeated blood culture so far is negative , UA is negative for infection and CXR showed atelactasis , leukocytosis is most likely due to his recent surgery , repeated CT ABD without contrast to ruled out abscess, but didn't rule out anastomosis leak , surgery is aware, will continue current antibiotics regimen , and monitor WBC. stool for C diff is negative , abdominal fluids culture showed no growth. (2) SBO (small bowel obstruction) Assessment & Plan: S/P EX LAP X3 , has ileus post OP, now with persistent abdominal pain, continue IVF, and pain management , general surgery is following (3) Abdominal pain Assessment & Plan: continue pain management, surgery is following (4) MIGNON (acute kidney injury) Assessment & Plan: due to sepsis and hypotension, continue IVF, titrate to keep SBP >100, renal is following (5) Ileus Assessment & Plan: due to repeated EXP LAP, continue IVF, and NGT suctioning , surgery is following Subjective Gastrointestinal/Abdominal: Reports: bloating, other - pressure and pain Allergies: Coded Allergies: No Known Allergies (Unverified , 07/26/16) All Systems: reviewed and negative except above Subjective he had bowel movement today non bloody, no fever or chills, no cough or SOB, passed mich, tolerated liquid diet Objective Vital Signs Last 24 Hour Vital Signs Date Time Temp Pulse Resp B/P Pulse Ox O2 Delivery O2 Flow Rate FiO2 08/06/16 14:58 98.1 08/06/16 12:00 98.1 75 20 170/102 97 Room Air 08/06/16 09:43 87 18 Room Air 21 08/06/16 09:40 98 171/97 08/06/16 08:54 97.7 08/06/16 08:00 96.8 98 20 171/97 99 Room Air 08/06/16 04:00 97.7 89 20 159/98 98 Room Air 08/06/16 00:00 97.2 83 21 164/94 99 Room Air 08/05/16 21:07 97 161/88 08/05/16 20:22 Room Air 08/05/16 20:22 99 Room Air 08/05/16 20:22 97 20 Room Air 08/05/16 20:00 97.0 84 14 161/88 98 Room Air 08/05/16 16:00 97.7 83 20 168/88 99 Room Air General Appearance: WD/WN, no acute distress HEENT: normocephalic, atraumatic, anicteric, mucous membranes moist Respiratory/Chest: chest wall non-tender, normal breath sounds, no respiratory distress, no accessory muscle use, decreased breath sounds, crackles/rales Cardiovascular: normal peripheral pulses, normal rate, regular rhythm, no gallop/murmur, no JVD Abdomen: normal bowel sounds, soft, non tender, no organomegaly, non distended , no mass, no scars Extremities: no cyanosis, no clubbing Skin: no rash, no lesions, no ulcers Microbiology Date/Time Source Procedure Growth Status 08/04/16 11:30 Blood Blood Culture - Preliminary NO GROWTH AFTER 24 HOURS Resulted 08/04/16 11:15 Blood Blood Culture - Preliminary NO GROWTH AFTER 24 HOURS Resulted Laboratory Tests Test 08/06/16 03:30 08/06/16 05:40 Sodium Level 145 mEQ/L (135-145) Potassium Level 4.4 mEQ/L (3.4-4.9) Chloride Level 105 mEQ/L (98-107) Carbon Dioxide Level 20 mEQ/L (20-30) Anion Gap 20 (5-15) H Blood Urea Nitrogen 31 mg/dL (7-23) H Creatinine 2.8 mg/dL (0.7-1.2) H Estimat Glomerular Filtration Rate 22.9 mL/min (>60) Glucose Level 186 mg/dL (74-106) H Calcium Level 7.8 mg/dL (8.6-10.2) L Total Bilirubin 1.0 mg/dL (0.0-1.2) Aspartate Amino Transf (AST/SGOT) 39 U/L (5-40) Alanine Aminotransferase (ALT/SGPT) 35 U/L (3-41) Alkaline Phosphatase 299 U/L (40-129) H C-Reactive Protein, Quantitative 8.9 mg/dL (< 0.5) H Total Protein 5.5 g/dL (6.6-8.7) L Albumin 2.6 g/dL (3.5-5.2) L Globulin 2.9 g/dL Albumin/Globulin Ratio 0.8 (1.0-2.7) L White Blood Count 24.7 K/UL (4.8-10.8) *H Red Blood Count 2.90 M/UL (4.70-6.10) L Hemoglobin 8.9 G/DL (14.2-18.0) L Hematocrit 27.2 % (42.0-52.0) L Mean Corpuscular Volume 94 FL (80-99) Mean Corpuscular Hemoglobin 30.7 PG (27.0-31.0) Mean Corpuscular Hemoglobin Concent 32.8 G/DL (32.0-36.0) Red Cell Distribution Width 12.6 % (11.6-14.8) Platelet Count 448 K/UL (150-450) Mean Platelet Volume 6.4 FL (6.5-10.1) L Neutrophils (%) (Auto) % (45.0-75.0) Lymphocytes (%) (Auto) % (20.0-45.0) Monocytes (%) (Auto) % (1.0-10.0) Eosinophils (%) (Auto) % (0.0-3.0) Basophils (%) (Auto) % (0.0-2.0) Differential Total Cells Counted 100 Neutrophils % (Manual) 86 % (45-75) H Lymphocytes % (Manual) 5 % (20-45) L Monocytes % (Manual) 6 % (1-10) Eosinophils % (Manual) 1 % (0-3) Basophils % (Manual) 0 % (0-2) Band Neutrophils 2 % (0-8) Platelet Estimate Adequate Platelet Morphology Normal Hypochromasia 1+ Anisocytosis Uric Acid 3.4 MG/DL (2.6-7.2) Phosphorus Level 3.1 MG/DL (2.5-4.9) Magnesium Level 1.8 MG/DL (1.5-2.4) Gamma Glutamyl Transpeptidase 389 U/L (8-61) H Pro-B-Type Natriuretic Peptide 1937 pg/mL (0-125) H Lipase 218 U/L (< 60) H Current Medications Medications (Trade) Dose Ordered Sig/Arti Route PRN Reason Start Time Stop Time Status Last Admin Dose Admin Acetaminophen (Tylenol) 650 mg Q4H PRN RECTAL FEVER>100.5 08/03/16 19:00 09/02/16 18:59 Albuterol/ Ipratropium 3 ml 3 ml Q4H PRN HHN Shortness of Breath 08/04/16 09:30 08/09/16 09:29 Dextrose 1,000 ml @ 0 mls/hr Q24H PRN IV PN interrupted or unavailable 08/03/16 21:00 09/02/16 20:59 Dextrose (Dextrose 50%) STAT PRN IV Hypoglycemia 08/03/16 19:00 09/02/16 18:59 Diphenhydramine HCl (Benadryl) 25 mg Q6H PRN IVP Itching/Pruritis 08/05/16 13:00 08/07/16 23:59 Enoxaparin Sodium (Lovenox) 30 mg DAILY SUBQ 08/04/16 09:00 09/03/16 08:59 08/06/16 09:43 Fat Emulsion Intravenous 240 ml/Amino Acids/ Electrolytes/ Dextrose 2,232 ml @ 93 mls/hr Q24H IV 08/04/16 21:00 09/03/16 20:59 08/05/16 21:25 Fluconazole/ Sodium Chloride (Diflucan 400mg/ 200ml Premix) 200 ml @ 100 mls/hr Q24H IV 08/05/16 09:00 08/12/16 08:59 08/06/16 09:40 Hydromorphone HCl (Dilaudid) 0.5 mg Q3H PRN IVP Pain Score 1-3 08/03/16 19:30 08/10/16 19:29 08/06/16 14:28 Hydromorphone HCl (Dilaudid) 1 mg Q3H PRN IVP pain score 4-6 08/04/16 20:30 08/11/16 20:29 08/05/16 19:03 Hydromorphone HCl (Dilaudid) 2 mg Q3H PRN IVP pain score 7-10 08/04/16 20:30 08/11/16 20:29 08/06/16 08:24 Insulin Aspart (NovoLOG) No Dose Q6HR SUBQ 08/04/16 00:00 09/03/16 00:00 08/06/16 14:36 Linezolid (Zyvox) 300 ml @ 300 mls/hr Q12HR@0600,1800 IVPB 08/04/16 06:00 08/09/16 05:59 08/06/16 05:59 Metoprolol Tartrate (Lopressor) 25 mg Q12HR ORAL 08/03/16 21:00 09/02/16 20:59 08/06/16 09:40 Ondansetron HCl (Zofran) 4 mg Q6H PRN IVP Nausea & Vomiting 08/03/16 19:10 09/02/16 19:09 Pantoprazole (Protonix) 40 mg DAILY IVP 08/04/16 09:00 09/03/16 08:59 08/06/16 09:40 Piperacillin Sod/ Tazobactam Sod 2.25 gm/Dextrose 55 ml @ 110 mls/hr Q8HR IV 08/04/16 14:00 08/09/16 13:59 08/06/16 14:28 Simethicone (Mylicon) 80 mg QIDPRN PRN NG GAS PAIN 08/03/16 19:00 09/02/16 18:59 08/04/16 19:39 Tamsulosin HCl (Flomax) 0.4 mg BEDTIME ORAL 08/03/16 21:00 09/02/16 20:59 08/05/16 21:07 Temazepam (Restoril) 7.5 mg HSPRN PRN ORAL Insomnia 08/03/16 20:00 08/10/16 19:59 08/06/16 01:50 Piyush Harris M.D. Aug 06, 2016 15:54
[2016-08-06 16:00] VITALS: BP 176/98
[2016-08-06 20:00] VITALS: BP 156/97
[2016-08-06] MEDS: Tamsulosin 0.4mg cap ORAL SCH (20:22)
[2016-08-06] MEDS: HYDROmorphone 1mg/ml Carpuject IVP PRN (20:22)
[2016-08-06] MEDS: Fat Emulsion Iv 20% 240 ML in Tpn 1,992 ML IV SCH (21:28)
[2016-08-07] VITALS: BP 154/88
[2016-08-07] MEDS: NovoLOG Insulin Flexpen SUBQ SCH ×4 (00:22→16:59)
[2016-08-07] MEDS: HYDROmorphone 1mg/ml Carpuject IVP PRN ×4 (02:16→20:31)
[2016-08-07 04:00] VITALS: BP 158/87
[2016-08-07] MEDS: Zosyn 2.25 gm in D5W 55ml IV SCH ×3 (05:37→21:33)
[2016-08-07 07:39] LABS: MEAN CORPUSCULAR HEMOGLOBIN 30.1 PG (27.0-31.0); MEAN CORPUSCULAR HGB CONC 31.7 G/DL (32.0-36.0); MEAN CORPUSCULAR VOLUME 95 FL (80-99); MEAN PLATELET VOLUME 6.1 FL (6.5-10.1); PLATELET COUNT 404 K/UL (150-450); RED BLOOD COUNT 2.62 M/UL (4.70-6.10); RED CELL DISTRIBUTION WIDTH 12.4 % (11.6-14.8); WHITE BLOOD COUNT 17.1 K/UL (4.8-10.8)
[2016-08-07 08:02] VITALS: BP 152/91
[2016-08-07 08:10] LABS: ALBUMIN/GLOBULIN RATIO 0.9 (1.0-2.7); CALCIUM 8.3 mg/dL (8.6-10.2); CREATININE 2.6 mg/dL (0.7-1.2); GLOMERULAR FILTRATION RATE 24.9 mL/min (>60); POTASSIUM 4.2 mEQ/L (3.4-4.9); TOTAL PROTEIN 5.7 g/dL (6.6-8.7)
[2016-08-07 08:20] LABS: CRP QUANT 5.9 mg/dL (< 0.5); MAGNESIUM 1.8 mg/dL (1.7-2.5); PHOSPHORUS 3.7 mg/dL (2.5-4.8); URIC ACID 3.2 mg/dL (3.0-7.5)
[2016-08-07 08:33] LABS: BILIRUBIN,DIRECT 0.8 mg/dL (0.1-0.3)
[2016-08-07] MEDS: Metoprolol 25mg tab ORAL SCH ×2 (08:56→20:31)
[2016-08-07] MEDS: Pantoprazole Inj IVP SCH (08:57)
[2016-08-07] MEDS: Fluconazole 200mg/100ml (Pre-Mix) IV SCH (08:57)
[2016-08-07] MEDS: Enoxaparin 30mg Inj SUBQ SCH (09:08)
--- NOTE | 2016-08-07 09:18 | General Progress Note ---
Assessment/Plan Status: stable Status Narrative Cr lower- WBCs lower Assessment/Plan status: Septic Shock leading to acute renal failure- Cr peaked 4.8 now down to 2.6 Abdominal Surgery 07/26/16 then again 05/27 and revision 08/02 Plan; one liter D5 re image- CT with po contrast negative- on TPN post op care- Antibiotics- Protonix IV monitor renal parameters- present Subjective ROS Limited/Unobtainable: No Constitutional: Reports: malaise, weakness Gastrointestinal/Abdominal: Reports: abdomen distended Allergies: Coded Allergies: No Known Allergies (Unverified , 07/26/16) Objective Last 24 Hour Vital Signs Date Time Temp Pulse Resp B/P Pulse Ox O2 Delivery O2 Flow Rate FiO2 08/07/16 08:56 84 152/91 08/07/16 08:02 98.2 84 20 152/91 100 Room Air 08/07/16 06:30 74 16 Room Air 2.0 21 08/07/16 04:00 98.2 78 18 158/87 99 Room Air 08/07/16 00:00 98.2 76 18 154/88 98 Room Air 08/06/16 20:30 91 18 Room Air 21 08/06/16 20:22 85 156/97 08/06/16 20:00 99.7 85 20 156/97 99 Room Air 08/06/16 18:05 176/98 08/06/16 16:00 97.9 89 20 176/98 98 Room Air 08/06/16 14:58 98.1 08/06/16 12:00 98.1 75 20 170/102 97 Room Air 08/06/16 09:43 87 18 Room Air 21 08/06/16 09:40 98 171/97 Intake and Output 08/06/16 08/07/16 19:00 07:00 Intake Total 1671 ml 985 ml Output Total 1465 ml 2416 ml Balance 206 ml -1431 ml IV Total 1671 ml 985 ml Output Urine Total 1300 ml 2300 ml Drainage Total 165 ml 116 ml # Bowel Movements 1 Laboratory Tests 08/07/16 05:50: White Blood Count 17.1H, Red Blood Count 2.62L, Hemoglobin 7.9L, Hematocrit 24.8L, Mean Corpuscular Volume 95, Mean Corpuscular Hemoglobin 30.1, Mean Corpuscular Hemoglobin Concent 31.7L, Red Cell Distribution Width 12.4, Platelet Count 404, Mean Platelet Volume 6.1L, Neutrophils (%) (Auto) , Lymphocytes (%) (Auto) , Monocytes (%) (Auto) , Eosinophils (%) (Auto) , Basophils (%) (Auto) , Neutrophils % (Manual) [Pending], Lymphocytes % (Manual) [Pending], Platelet Estimate [Pending], Platelet Morphology [Pending], Sodium Level 150H, Potassium Level 4.2, Chloride Level 109H, Carbon Dioxide Level 24, Anion Gap 17H, Blood Urea Nitrogen 31H, Creatinine 2.6H, Estimat Glomerular Filtration Rate 24.9, Glucose Level 130H, Uric Acid 3.2, Calcium Level 8.3L, Phosphorus Level 3.7, Magnesium Level 1.8, Total Bilirubin 1.3H, Direct Bilirubin 0.8H, Gamma Glutamyl Transpeptidase 354H, Aspartate Amino Transf (AST/ SGOT) 37, Alanine Aminotransferase (ALT/SGPT) 42H, Alkaline Phosphatase 248H, C- Reactive Protein, Quantitative 5.9H, Pro-B-Type Natriuretic Peptide 2263H, Total Protein 5.7L, Albumin 2.7L, Globulin 3.0, Albumin/Globulin Ratio 0.9L, Amylase Level 132H, Lipase 199H General Appearance: no apparent distress Cardiovascular: regular rhythm Respiratory/Chest: decreased breath sounds Abdomen: distended Objective no other changes in PE REBECCA SCHULTE Aug 07, 2016 09:18
[2016-08-07 09:53] LABS: BAND NEUTROPHILS % (MANUAL) 2 % (0-8); BASOPHILS % (MANUAL) 0 % (0-2); EOSINOPHILS % (MANUAL) 1 % (0-3); HYPOCHROMASIA 1+; LYMPHOCYTES % (MANUAL) 8 % (20-45); NEUTROPHILS % (MANUAL) 83 % (45-75); PLATELET ESTIMATE ADEQUATE; PLATELET MORPHOLOGY NORMAL; TOTAL CELLS COUNTED 100
[2016-08-07 12:03] VITALS: BP 154/98
--- NOTE | 2016-08-07 14:12 | General Progress Note ---
Assessment/Plan Problem List: (1) Ileus ICD Codes: K56.7 - Ileus, unspecified SNOMED: 405196246 (2) Sepsis ICD Codes: A41.9 - Sepsis, unspecified organism SNOMED: 36102318 (3) Abdominal pain ICD Codes: R10.9 - Unspecified abdominal pain SNOMED: 82250847 (4) SBO (small bowel obstruction) ICD Codes: K56.69 - Other intestinal obstruction SNOMED: 032900372 (5) Abdominal gas pain ICD Codes: R14.1 - Gas pain SNOMED: 52119806 (6) Enteritis ICD Codes: K52.9 - Noninfective gastroenteritis and colitis, unspecified SNOMED: 23959599 Status: progressing Assessment/Plan s/p third explo lap s/p re anstamosis by dr zee sepsis persistent leukocytosis afebrile dr zee on the case following patient no vomit today abx per id Subjective Gastrointestinal/Abdominal: Reports: abdominal pain Allergies: Coded Allergies: No Known Allergies (Unverified , 07/26/16) Objective Last 24 Hour Vital Signs Date Time Temp Pulse Resp B/P Pulse Ox O2 Delivery O2 Flow Rate FiO2 08/07/16 12:03 98.1 80 18 154/98 100 Room Air 08/07/16 08:56 84 152/91 08/07/16 08:40 98.2 08/07/16 08:02 98.2 84 20 152/91 100 Room Air 08/07/16 06:30 74 16 Room Air 2.0 21 08/07/16 04:00 98.2 78 18 158/87 99 Room Air 08/07/16 00:00 98.2 76 18 154/88 98 Room Air 08/06/16 20:30 91 18 Room Air 21 08/06/16 20:22 85 156/97 08/06/16 20:00 99.7 85 20 156/97 99 Room Air 08/06/16 18:05 176/98 08/06/16 16:00 97.9 89 20 176/98 98 Room Air 08/06/16 14:58 98.1 Intake and Output 08/06/16 08/07/16 19:00 07:00 Intake Total 1671 ml 985 ml Output Total 1465 ml 2416 ml Balance 206 ml -1431 ml IV Total 1671 ml 985 ml Output Urine Total 1300 ml 2300 ml Drainage Total 165 ml 116 ml # Bowel Movements 1 Laboratory Tests 08/07/16 05:50: White Blood Count 17.1H, Red Blood Count 2.62L, Hemoglobin 7.9L, Hematocrit 24.8L, Mean Corpuscular Volume 95, Mean Corpuscular Hemoglobin 30.1, Mean Corpuscular Hemoglobin Concent 31.7L, Red Cell Distribution Width 12.4, Platelet Count 404, Mean Platelet Volume 6.1L, Neutrophils (%) (Auto) , Lymphocytes (%) (Auto) , Monocytes (%) (Auto) , Eosinophils (%) (Auto) , Basophils (%) (Auto) , Differential Total Cells Counted 100, Neutrophils % ( Manual) 83H, Lymphocytes % (Manual) 8L, Monocytes % (Manual) 6, Eosinophils % ( Manual) 1, Basophils % (Manual) 0, Band Neutrophils 2, Platelet Estimate Adequate, Platelet Morphology Normal, Hypochromasia 1+, Sodium Level 150H, Potassium Level 4.2, Chloride Level 109H, Carbon Dioxide Level 24, Anion Gap 17H , Blood Urea Nitrogen 31H, Creatinine 2.6H, Estimat Glomerular Filtration Rate 24.9, Glucose Level 130H, Uric Acid 3.2, Calcium Level 8.3L, Phosphorus Level 3.7, Magnesium Level 1.8, Total Bilirubin 1.3H, Direct Bilirubin 0.8H, Gamma Glutamyl Transpeptidase 354H, Aspartate Amino Transf (AST/SGOT) 37, Alanine Aminotransferase (ALT/SGPT) 42H, Alkaline Phosphatase 248H, C-Reactive Protein, Quantitative 5.9H, Pro-B-Type Natriuretic Peptide 2263H, Total Protein 5.7L, Albumin 2.7L, Globulin 3.0, Albumin/Globulin Ratio 0.9L, Amylase Level 132H, Lipase 199H EENT: PERRL/EOMI Neck: supple Cardiovascular: normal rate Abdomen: tender Teo Love MD Aug 07, 2016 14:12
--- NOTE | 2016-08-07 15:30 | General Progress Note ---
Assessment/Plan Assessment/Plan ASSESSMENT: 1. Leukocytosis Likely 2/2 underlying sepsis vs reactive. Has improved 2. Small bowel obstruction. status post 3rd exploratory laparotomy; s/p resection gangrene 3. Anemia 2/2 chronic disease, does not require iron 4. Sepsis, likely contributing to leukocytosis. 5. Abdominal pain due to small bowel obstruction. 6. Thrombocytopenia - better RECOMMENDATIONS: 1. Monitor wbc counts 2. Have reviewed anemia workup, does not need iron 3. Follow up on Surgery, GI, ID recs 5. Transfuse to goal hgb >7. 6. DVT ppx lovenox 7. GI ppx ppi 8. DW staff Thank you, Andrew Mendez MD Subjective Constitutional: Reports: no symptoms HEENT: Reports: no symptoms Cardiovascular: Reports: no symptoms Respiratory: Reports: no symptoms Gastrointestinal/Abdominal: Reports: poor appetite Genitourinary: Reports: no symptoms 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: Reports: no symptoms Endocrine: Reports: no symptoms Hematologic/Lymphatic: Reports: anemia Allergies: Coded Allergies: No Known Allergies (Unverified , 07/26/16) Subjective no bleeding reported. is without hematochezia or hematemesis Objective Last 24 Hour Vital Signs Date Time Temp Pulse Resp B/P Pulse Ox O2 Delivery O2 Flow Rate FiO2 08/07/16 12:03 98.1 80 18 154/98 100 Room Air 08/07/16 08:56 84 152/91 08/07/16 08:40 98.2 08/07/16 08:02 98.2 84 20 152/91 100 Room Air 08/07/16 06:30 74 16 Room Air 2.0 21 08/07/16 04:00 98.2 78 18 158/87 99 Room Air 08/07/16 00:00 98.2 76 18 154/88 98 Room Air 08/06/16 20:30 91 18 Room Air 21 08/06/16 20:22 85 156/97 08/06/16 20:00 99.7 85 20 156/97 99 Room Air 08/06/16 18:05 176/98 08/06/16 16:00 97.9 89 20 176/98 98 Room Air Intake and Output 08/06/16 08/07/16 19:00 07:00 Intake Total 1671 ml 985 ml Output Total 1465 ml 2416 ml Balance 206 ml -1431 ml IV Total 1671 ml 985 ml Output Urine Total 1300 ml 2300 ml Drainage Total 165 ml 116 ml # Bowel Movements 1 Laboratory Tests 08/07/16 05:50: White Blood Count 17.1H, Red Blood Count 2.62L, Hemoglobin 7.9L, Hematocrit 24.8L, Mean Corpuscular Volume 95, Mean Corpuscular Hemoglobin 30.1, Mean Corpuscular Hemoglobin Concent 31.7L, Red Cell Distribution Width 12.4, Platelet Count 404, Mean Platelet Volume 6.1L, Neutrophils (%) (Auto) , Lymphocytes (%) (Auto) , Monocytes (%) (Auto) , Eosinophils (%) (Auto) , Basophils (%) (Auto) , Differential Total Cells Counted 100, Neutrophils % ( Manual) 83H, Lymphocytes % (Manual) 8L, Monocytes % (Manual) 6, Eosinophils % ( Manual) 1, Basophils % (Manual) 0, Band Neutrophils 2, Platelet Estimate Adequate, Platelet Morphology Normal, Hypochromasia 1+, Sodium Level 150H, Potassium Level 4.2, Chloride Level 109H, Carbon Dioxide Level 24, Anion Gap 17H , Blood Urea Nitrogen 31H, Creatinine 2.6H, Estimat Glomerular Filtration Rate 24.9, Glucose Level 130H, Uric Acid 3.2, Calcium Level 8.3L, Phosphorus Level 3.7, Magnesium Level 1.8, Total Bilirubin 1.3H, Direct Bilirubin 0.8H, Gamma Glutamyl Transpeptidase 354H, Aspartate Amino Transf (AST/SGOT) 37, Alanine Aminotransferase (ALT/SGPT) 42H, Alkaline Phosphatase 248H, C-Reactive Protein, Quantitative 5.9H, Pro-B-Type Natriuretic Peptide 2263H, Total Protein 5.7L, Albumin 2.7L, Globulin 3.0, Albumin/Globulin Ratio 0.9L, Amylase Level 132H, Lipase 199H General Appearance: WD/WN EENT: TMs normal Neck: supple Cardiovascular: regular rhythm Respiratory/Chest: no respiratory distress Abdomen: no organomegaly Extremities: non-tender Edema: 1+ Leg (L), 1+ Leg (R) Edema: mild edema Neurologic: alert Skin: warm/dry Andrew Mendez Aug 07, 2016 15:30
[2016-08-07 16:12] VITALS: BP 152/92
--- NOTE | 2016-08-07 17:07 | Infectious Diseases Prog Note ---
Assessment/Plan Problems: (1) Septic shock Assessment & Plan: now improving , S/P three EXP LAP, complicated with anastomosis leak , S/P revision, repeated blood culture so far is negative , UA is negative for infection and CXR showed atelactasis , leukocytosis is most likely due to his recent surgery , repeated CT ABD without contrast ruled out abscess, but didn't rule out anastomosis leak , surgery is aware, will continue current antibiotics regimen , and monitor WBC. stool for C diff is negative , abdominal fluids culture showed no growth. (2) SBO (small bowel obstruction) Assessment & Plan: S/P EX LAP X3 , has ileus post OP, now with persistent abdominal pain, continue IVF, and pain management , general surgery is following (3) Abdominal pain Assessment & Plan: improving, continue pain management, surgery is following (4) MIGNON (acute kidney injury) Assessment & Plan: due to sepsis and hypotension, continue IVF, titrate to keep SBP >100, renal is following (5) Ileus Assessment & Plan: due to repeated EXP LAP, continue IVF, encourage walking , surgery is following Subjective Constitutional: Denies: anorexia, chills, drenching sweats, fatigue, fever, no symptoms, other HEENT: Denies: congestion, coryza, dysphagia, hearing change, no symptoms, other, visual change Respiratory: Denies: dry cough, no symptoms, other, productive cough, shortness of breath Cardiovascular: Denies: chest pain, dyspnea on exertion, no symptoms, other, palpitations Gastrointestinal/Abdominal: Reports: bloating, other - pressure Genitourinary: Denies: dysuria, frequency, hematuria, no symptoms, nocturia, other Neurologic: Denies: confusion, headache, no symptoms, numbness, other, weakness Psychiatric: Denies: anxiety, depression, no symptoms, other Skin: Denies: no symptoms, other, rash, ulcer Endocrine: Denies: feels cold, feels warm, no symptoms, other Allergies: Coded Allergies: No Known Allergies (Unverified , 07/26/16) Subjective he feels a little better today, no bowel movement today , no fever or chills, no cough or SOB, didn't passed [place]. Objective Vital Signs Last 24 Hour Vital Signs Date Time Temp Pulse Resp B/P Pulse Ox O2 Delivery O2 Flow Rate FiO2 08/07/16 16:12 98.2 86 19 152/92 100 Room Air 08/07/16 12:03 98.1 80 18 154/98 100 Room Air 08/07/16 08:56 84 152/91 08/07/16 08:40 98.2 08/07/16 08:02 98.2 84 20 152/91 100 Room Air 08/07/16 06:30 74 16 Room Air 2.0 21 08/07/16 04:00 98.2 78 18 158/87 99 Room Air 08/07/16 00:00 98.2 76 18 154/88 98 Room Air 08/06/16 20:30 91 18 Room Air 21 08/06/16 20:22 85 156/97 08/06/16 20:00 99.7 85 20 156/97 99 Room Air 08/06/16 18:05 176/98 General Appearance: WD/WN, no acute distress HEENT: normocephalic, atraumatic, anicteric, mucous membranes moist Respiratory/Chest: chest wall non-tender, lungs clear, normal breath sounds, no respiratory distress Cardiovascular: normal peripheral pulses, normal rate, regular rhythm, no gallop/murmur Abdomen: no organomegaly, no mass, no scars, absent bowel sounds, distended, tender Extremities: no cyanosis, no clubbing Skin: no rash, no lesions, no ulcers Laboratory Tests Test 08/07/16 05:50 White Blood Count 17.1 K/UL (4.8-10.8) H Red Blood Count 2.62 M/UL (4.70-6.10) L Hemoglobin 7.9 G/DL (14.2-18.0) L Hematocrit 24.8 % (42.0-52.0) L Mean Corpuscular Volume 95 FL (80-99) Mean Corpuscular Hemoglobin 30.1 PG (27.0-31.0) Mean Corpuscular Hemoglobin Concent 31.7 G/DL (32.0-36.0) L Red Cell Distribution Width 12.4 % (11.6-14.8) Platelet Count 404 K/UL (150-450) Mean Platelet Volume 6.1 FL (6.5-10.1) L Neutrophils (%) (Auto) % (45.0-75.0) Lymphocytes (%) (Auto) % (20.0-45.0) Monocytes (%) (Auto) % (1.0-10.0) Eosinophils (%) (Auto) % (0.0-3.0) Basophils (%) (Auto) % (0.0-2.0) Differential Total Cells Counted 100 Neutrophils % (Manual) 83 % (45-75) H Lymphocytes % (Manual) 8 % (20-45) L Monocytes % (Manual) 6 % (1-10) Eosinophils % (Manual) 1 % (0-3) Basophils % (Manual) 0 % (0-2) Band Neutrophils 2 % (0-8) Platelet Estimate Adequate Platelet Morphology Normal Hypochromasia 1+ Sodium Level 150 mEQ/L (135-145) H Potassium Level 4.2 mEQ/L (3.4-4.9) Chloride Level 109 mEQ/L (98-107) H Carbon Dioxide Level 24 mEQ/L (20-30) Anion Gap 17 (5-15) H Blood Urea Nitrogen 31 mg/dL (7-23) H Creatinine 2.6 mg/dL (0.7-1.2) H Estimat Glomerular Filtration Rate 24.9 mL/min (>60) Glucose Level 130 mg/dL (74-106) H Uric Acid 3.2 mg/dL (3.0-7.5) Calcium Level 8.3 mg/dL (8.6-10.2) L Phosphorus Level 3.7 mg/dL (2.5-4.8) Magnesium Level 1.8 mg/dL (1.7-2.5) Total Bilirubin 1.3 mg/dL (0.0-1.2) H Direct Bilirubin 0.8 mg/dL (0.1-0.3) H Gamma Glutamyl Transpeptidase 354 U/L (8-61) H Aspartate Amino Transf (AST/SGOT) 37 U/L (5-40) Alanine Aminotransferase (ALT/SGPT) 42 U/L (3-41) H Alkaline Phosphatase 248 U/L (40-129) H C-Reactive Protein, Quantitative 5.9 mg/dL (< 0.5) H Pro-B-Type Natriuretic Peptide 2263 pg/mL (0-125) H Total Protein 5.7 g/dL (6.6-8.7) L Albumin 2.7 g/dL (3.5-5.2) L Globulin 3.0 g/dL Albumin/Globulin Ratio 0.9 (1.0-2.7) L Amylase Level 132 U/L (10-110) H Lipase 199 U/L (< 60) H Current Medications Medications (Trade) Dose Ordered Sig/Arti Route PRN Reason Start Time Stop Time Status Last Admin Dose Admin Acetaminophen (Tylenol) 650 mg Q4H PRN RECTAL FEVER>100.5 08/03/16 19:00 09/02/16 18:59 Albuterol/ Ipratropium 3 ml 3 ml Q4H PRN HHN Shortness of Breath 08/04/16 09:30 08/09/16 09:29 Dextrose 1,000 ml @ 0 mls/hr Q24H PRN IV PN interrupted or unavailable 08/03/16 21:00 09/02/16 20:59 Dextrose (D5W 1000ml) 1,000 ml @ 100 mls/hr Q10H ONCE IV 08/07/16 09:30 08/07/16 19:29 08/07/16 10:00 Dextrose (Dextrose 50%) STAT PRN IV Hypoglycemia 08/03/16 19:00 09/02/16 18:59 Diphenhydramine HCl 25 mg 25 mg Q6H PRN IVP Itching/Pruritis 08/05/16 13:00 08/07/16 23:59 08/07/16 02:24 Enoxaparin Sodium (Lovenox) 30 mg DAILY SUBQ 08/04/16 09:00 09/03/16 08:59 08/07/16 09:08 Fat Emulsion Intravenous/Amino Acids/ Electrolytes/ Dextrose (Intralipids/Tpn) 2,232 ml @ 93 mls/hr Q24H IV 08/04/16 21:00 09/03/16 20:59 08/06/16 21:28 Fluconazole/ Sodium Chloride 100 ml @ 100 mls/hr Q24H IV 08/07/16 09:00 08/14/16 08:59 08/07/16 08:57 Hydromorphone HCl (Dilaudid) 0.5 mg Q3H PRN IVP Pain Score 1-3 08/03/16 19:30 08/10/16 19:29 08/06/16 14:28 Hydromorphone HCl (Dilaudid) 1 mg Q3H PRN IVP pain score 4-6 08/04/16 20:30 08/11/16 20:29 08/07/16 16:57 Hydromorphone HCl (Dilaudid) 2 mg Q3H PRN IVP pain score 7-10 08/04/16 20:30 08/11/16 20:29 08/06/16 08:24 Insulin Aspart (NovoLOG) No Dose Q6HR SUBQ 08/04/16 00:00 09/03/16 00:00 08/07/16 16:59 Linezolid (Zyvox) 300 ml @ 300 mls/hr Q12HR@0600,1800 IVPB 08/04/16 06:00 08/09/16 05:59 08/07/16 16:57 Metoprolol Tartrate (Lopressor) 25 mg Q12HR ORAL 08/03/16 21:00 09/02/16 20:59 08/07/16 08:56 Ondansetron HCl (Zofran) 4 mg Q6H PRN IVP Nausea & Vomiting 08/03/16 19:10 09/02/16 19:09 Pantoprazole (Protonix) 40 mg DAILY IVP 08/04/16 09:00 09/03/16 08:59 08/07/16 08:57 Piperacillin Sod/ Tazobactam Sod 2.25 gm/Dextrose 55 ml @ 110 mls/hr Q8HR IV 08/04/16 14:00 08/09/16 13:59 08/07/16 14:29 Simethicone (Mylicon) 80 mg QIDPRN PRN NG GAS PAIN 08/03/16 19:00 09/02/16 18:59 08/04/16 19:39 Tamsulosin HCl (Flomax) 0.4 mg BEDTIME ORAL 08/03/16 21:00 09/02/16 20:59 08/06/16 20:22 Temazepam (Restoril) 7.5 mg HSPRN PRN ORAL Insomnia 08/03/16 20:00 08/10/16 19:59 08/06/16 01:50 Piyush Harris M.D. Aug 07, 2016 17:07
--- NOTE | 2016-08-07 17:24 | Pulmonology Progress Note ---
Assessment/Plan Problems: (1) SBO (small bowel obstruction) (2) MIGNON (acute kidney injury) (3) Ileus (4) Enteritis (5) Non-ST elevation (NSTEMI) myocardial infarction Assessment/Plan improving out of icu continue antibiotics check electrolytes advance diet dvt prophylaxis check cultures Subjective ROS Limited/Unobtainable: No Interval Events: less pain Respiratory: Reports: shortness of breath Allergies: Coded Allergies: No Known Allergies (Unverified , 07/26/16) Objective Last 24 Hour Vital Signs Date Time Temp Pulse Resp B/P Pulse Ox O2 Delivery O2 Flow Rate FiO2 08/07/16 16:12 98.2 86 19 152/92 100 Room Air 08/07/16 12:03 98.1 80 18 154/98 100 Room Air 08/07/16 08:56 84 152/91 08/07/16 08:40 98.2 08/07/16 08:02 98.2 84 20 152/91 100 Room Air 08/07/16 06:30 74 16 Room Air 2.0 21 08/07/16 04:00 98.2 78 18 158/87 99 Room Air 08/07/16 00:00 98.2 76 18 154/88 98 Room Air 08/06/16 20:30 91 18 Room Air 21 08/06/16 20:22 85 156/97 08/06/16 20:00 99.7 85 20 156/97 99 Room Air 08/06/16 18:05 176/98 Intake and Output 08/06/16 08/07/16 19:00 07:00 Intake Total 1671 ml 985 ml Output Total 1465 ml 2416 ml Balance 206 ml -1431 ml IV Total 1671 ml 985 ml Output Urine Total 1300 ml 2300 ml Drainage Total 165 ml 116 ml # Bowel Movements 1 General Appearance: WD/WN HEENT: normocephalic, atraumatic Respiratory/Chest: chest wall non-tender, lungs clear Cardiovascular: normal peripheral pulses, regular rhythm Abdomen: normal bowel sounds, no organomegaly Genitourinary: normal external genitalia Extremities: no clubbing 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: block paver II-XII grossly normal, no motor/sensory deficits Laboratory Tests 08/07/16 05:50: White Blood Count 17.1H, Red Blood Count 2.62L, Hemoglobin 7.9L, Hematocrit 24.8L, Mean Corpuscular Volume 95, Mean Corpuscular Hemoglobin 30.1, Mean Corpuscular Hemoglobin Concent 31.7L, Red Cell Distribution Width 12.4, Platelet Count 404, Mean Platelet Volume 6.1L, Neutrophils (%) (Auto) , Lymphocytes (%) (Auto) , Monocytes (%) (Auto) , Eosinophils (%) (Auto) , Basophils (%) (Auto) , Differential Total Cells Counted 100, Neutrophils % ( Manual) 83H, Lymphocytes % (Manual) 8L, Monocytes % (Manual) 6, Eosinophils % ( Manual) 1, Basophils % (Manual) 0, Band Neutrophils 2, Platelet Estimate Adequate, Platelet Morphology Normal, Hypochromasia 1+, Sodium Level 150H, Potassium Level 4.2, Chloride Level 109H, Carbon Dioxide Level 24, Anion Gap 17H , Blood Urea Nitrogen 31H, Creatinine 2.6H, Estimat Glomerular Filtration Rate 24.9, Glucose Level 130H, Uric Acid 3.2, Calcium Level 8.3L, Phosphorus Level 3.7, Magnesium Level 1.8, Total Bilirubin 1.3H, Direct Bilirubin 0.8H, Gamma Glutamyl Transpeptidase 354H, Aspartate Amino Transf (AST/SGOT) 37, Alanine Aminotransferase (ALT/SGPT) 42H, Alkaline Phosphatase 248H, C-Reactive Protein, Quantitative 5.9H, Pro-B-Type Natriuretic Peptide 2263H, Total Protein 5.7L, Albumin 2.7L, Globulin 3.0, Albumin/Globulin Ratio 0.9L, Amylase Level 132H, Lipase 199H Current Medications Medications (Trade) Dose Ordered Sig/Arti Route PRN Reason Start Time Stop Time Status Last Admin Dose Admin Acetaminophen (Tylenol) 650 mg Q4H PRN RECTAL FEVER>100.5 08/03/16 19:00 09/02/16 18:59 Albuterol/ Ipratropium 3 ml 3 ml Q4H PRN HHN Shortness of Breath 08/04/16 09:30 08/09/16 09:29 Dextrose 1,000 ml @ 0 mls/hr Q24H PRN IV PN interrupted or unavailable 08/03/16 21:00 09/02/16 20:59 Dextrose (D5W 1000ml) 1,000 ml @ 100 mls/hr Q10H ONCE IV 08/07/16 09:30 08/07/16 19:29 08/07/16 10:00 Dextrose (Dextrose 50%) STAT PRN IV Hypoglycemia 08/03/16 19:00 09/02/16 18:59 Diphenhydramine HCl 25 mg 25 mg Q6H PRN IVP Itching/Pruritis 08/05/16 13:00 08/07/16 23:59 08/07/16 02:24 Enoxaparin Sodium (Lovenox) 30 mg DAILY SUBQ 08/04/16 09:00 09/03/16 08:59 08/07/16 09:08 Fat Emulsion Intravenous/Amino Acids/ Electrolytes/ Dextrose (Intralipids/Tpn) 2,232 ml @ 93 mls/hr Q24H IV 08/04/16 21:00 09/03/16 20:59 08/06/16 21:28 Fluconazole/ Sodium Chloride 100 ml @ 100 mls/hr Q24H IV 08/07/16 09:00 08/14/16 08:59 08/07/16 08:57 Hydromorphone HCl (Dilaudid) 0.5 mg Q3H PRN IVP Pain Score 1-3 08/03/16 19:30 08/10/16 19:29 08/06/16 14:28 Hydromorphone HCl (Dilaudid) 1 mg Q3H PRN IVP pain score 4-6 08/04/16 20:30 08/11/16 20:29 08/07/16 16:57 Hydromorphone HCl (Dilaudid) 2 mg Q3H PRN IVP pain score 7-10 08/04/16 20:30 08/11/16 20:29 08/06/16 08:24 Insulin Aspart (NovoLOG) No Dose Q6HR SUBQ 08/04/16 00:00 09/03/16 00:00 08/07/16 16:59 Linezolid (Zyvox) 300 ml @ 300 mls/hr Q12HR@0600,1800 IVPB 08/04/16 06:00 08/09/16 05:59 08/07/16 16:57 Metoprolol Tartrate (Lopressor) 25 mg Q12HR ORAL 08/03/16 21:00 09/02/16 20:59 08/07/16 08:56 Ondansetron HCl (Zofran) 4 mg Q6H PRN IVP Nausea & Vomiting 08/03/16 19:10 09/02/16 19:09 Pantoprazole (Protonix) 40 mg DAILY IVP 08/04/16 09:00 09/03/16 08:59 08/07/16 08:57 Piperacillin Sod/ Tazobactam Sod 2.25 gm/Dextrose 55 ml @ 110 mls/hr Q8HR IV 08/04/16 14:00 08/09/16 13:59 08/07/16 14:29 Simethicone (Mylicon) 80 mg QIDPRN PRN NG GAS PAIN 08/03/16 19:00 09/02/16 18:59 08/04/16 19:39 Tamsulosin HCl (Flomax) 0.4 mg BEDTIME ORAL 08/03/16 21:00 09/02/16 20:59 08/06/16 20:22 Temazepam (Restoril) 7.5 mg HSPRN PRN ORAL Insomnia 08/03/16 20:00 08/10/16 19:59 08/06/16 01:50 MAIKEL ESPINOSA Aug 07, 2016 17:24
--- NOTE | 2016-08-07 18:02 | General Surgery Progress Note ---
General Surgery-Progress Note Subjective Procedure Performed Exploratory Laparotomy and resection of anastomosis with anstomosis of small bowel to colon Symptoms: improved, BM Objective Last 24 Hour Vital Signs Date Time Temp Pulse Resp B/P Pulse Ox O2 Delivery O2 Flow Rate FiO2 08/07/16 16:12 98.2 86 19 152/92 100 Room Air 08/07/16 12:03 98.1 80 18 154/98 100 Room Air 08/07/16 08:56 84 152/91 08/07/16 08:40 98.2 08/07/16 08:02 98.2 84 20 152/91 100 Room Air 08/07/16 06:30 74 16 Room Air 2.0 21 08/07/16 04:00 98.2 78 18 158/87 99 Room Air 08/07/16 00:00 98.2 76 18 154/88 98 Room Air 08/06/16 20:30 91 18 Room Air 21 08/06/16 20:22 85 156/97 08/06/16 20:00 99.7 85 20 156/97 99 Room Air 08/06/16 18:05 176/98 I&O Intake and Output 08/06/16 08/07/16 19:00 07:00 Intake Total 1671 ml 985 ml Output Total 1465 ml 2416 ml Balance 206 ml -1431 ml IV Total 1671 ml 985 ml Output Urine Total 1300 ml 2300 ml Drainage Total 165 ml 116 ml # Bowel Movements 1 Dressing: dry Drains: curtis Respiratory: clear Abdomen: soft, flat, non-tender, present bowel sounds Extremities: no tenderness Laboratory Tests Test 08/07/16 05:50 White Blood Count 17.1 K/UL (4.8-10.8) H Red Blood Count 2.62 M/UL (4.70-6.10) L Hemoglobin 7.9 G/DL (14.2-18.0) L Hematocrit 24.8 % (42.0-52.0) L Mean Corpuscular Volume 95 FL (80-99) Mean Corpuscular Hemoglobin 30.1 PG (27.0-31.0) Mean Corpuscular Hemoglobin Concent 31.7 G/DL (32.0-36.0) L Red Cell Distribution Width 12.4 % (11.6-14.8) Platelet Count 404 K/UL (150-450) Mean Platelet Volume 6.1 FL (6.5-10.1) L Neutrophils (%) (Auto) % (45.0-75.0) Lymphocytes (%) (Auto) % (20.0-45.0) Monocytes (%) (Auto) % (1.0-10.0) Eosinophils (%) (Auto) % (0.0-3.0) Basophils (%) (Auto) % (0.0-2.0) Differential Total Cells Counted 100 Neutrophils % (Manual) 83 % (45-75) H Lymphocytes % (Manual) 8 % (20-45) L Monocytes % (Manual) 6 % (1-10) Eosinophils % (Manual) 1 % (0-3) Basophils % (Manual) 0 % (0-2) Band Neutrophils 2 % (0-8) Platelet Estimate Adequate Platelet Morphology Normal Hypochromasia 1+ Sodium Level 150 mEQ/L (135-145) H Potassium Level 4.2 mEQ/L (3.4-4.9) Chloride Level 109 mEQ/L (98-107) H Carbon Dioxide Level 24 mEQ/L (20-30) Anion Gap 17 (5-15) H Blood Urea Nitrogen 31 mg/dL (7-23) H Creatinine 2.6 mg/dL (0.7-1.2) H Estimat Glomerular Filtration Rate 24.9 mL/min (>60) Glucose Level 130 mg/dL (74-106) H Uric Acid 3.2 mg/dL (3.0-7.5) Calcium Level 8.3 mg/dL (8.6-10.2) L Phosphorus Level 3.7 mg/dL (2.5-4.8) Magnesium Level 1.8 mg/dL (1.7-2.5) Total Bilirubin 1.3 mg/dL (0.0-1.2) H Direct Bilirubin 0.8 mg/dL (0.1-0.3) H Gamma Glutamyl Transpeptidase 354 U/L (8-61) H Aspartate Amino Transf (AST/SGOT) 37 U/L (5-40) Alanine Aminotransferase (ALT/SGPT) 42 U/L (3-41) H Alkaline Phosphatase 248 U/L (40-129) H C-Reactive Protein, Quantitative 5.9 mg/dL (< 0.5) H Pro-B-Type Natriuretic Peptide 2263 pg/mL (0-125) H Total Protein 5.7 g/dL (6.6-8.7) L Albumin 2.7 g/dL (3.5-5.2) L Globulin 3.0 g/dL Albumin/Globulin Ratio 0.9 (1.0-2.7) L Amylase Level 132 U/L (10-110) H Lipase 199 U/L (< 60) H Assessment Post-op Diagnosis anastomosis leakage Plan Additional Comments continue present treatment EDWIN NOGUEIRA Aug 07, 2016 18:02
--- NOTE | 2016-08-07 19:03 | Cardiac Electrophysiology PN ---
Assessment/Plan Assessment/Plan 1. Elevated troponin due to demand ischemia vs renal failure. ECG non ischemic. Troponin 1.3 to 0.33. Echo NL EF.Continue Lopressor 25 bid.No chest pain. 2. S/P Septic shock due to small bowel obstruction and gangrene. Off pressors.On iv fluid and antibiotics. WBC down to 17 today 3. HTN. Continue Lopressor 25 bid. Avoid ACEI or ARB for renal failure 4. Small bowel obstruction status post laparotomy and small bowel resection. S/ P 3rd surgery on 08/02/16. Follow up Dr [place]. 5. Respiratory failure. Extubated 6. Renal failure, creatinine 4.4. Today 2.6 DW daughter and RN Subjective Subjective NPO on TPN.Daughter at bedside. Abdominal drain still in place. No chest pain or SOB. Objective Last 24 Hour Vital Signs Date Time Temp Pulse Resp B/P Pulse Ox O2 Delivery O2 Flow Rate FiO2 08/07/16 16:12 98.2 86 19 152/92 100 Room Air 08/07/16 12:03 98.1 80 18 154/98 100 Room Air 08/07/16 08:56 84 152/91 08/07/16 08:40 98.2 08/07/16 08:02 98.2 84 20 152/91 100 Room Air 08/07/16 06:30 74 16 Room Air 2.0 21 08/07/16 04:00 98.2 78 18 158/87 99 Room Air 08/07/16 00:00 98.2 76 18 154/88 98 Room Air 08/06/16 20:30 91 18 Room Air 21 08/06/16 20:22 85 156/97 08/06/16 20:00 99.7 85 20 156/97 99 Room Air Intake and Output 08/06/16 08/07/16 19:00 07:00 Intake Total 1671 ml 985 ml Output Total 1465 ml 2416 ml Balance 206 ml -1431 ml IV Total 1671 ml 985 ml Output Urine Total 1300 ml 2300 ml Drainage Total 165 ml 116 ml # Bowel Movements 1 Laboratory Tests Test 08/07/16 05:50 White Blood Count 17.1 K/UL (4.8-10.8) H Red Blood Count 2.62 M/UL (4.70-6.10) L Hemoglobin 7.9 G/DL (14.2-18.0) L Hematocrit 24.8 % (42.0-52.0) L Mean Corpuscular Volume 95 FL (80-99) Mean Corpuscular Hemoglobin 30.1 PG (27.0-31.0) Mean Corpuscular Hemoglobin Concent 31.7 G/DL (32.0-36.0) L Red Cell Distribution Width 12.4 % (11.6-14.8) Platelet Count 404 K/UL (150-450) Mean Platelet Volume 6.1 FL (6.5-10.1) L Neutrophils (%) (Auto) % (45.0-75.0) Lymphocytes (%) (Auto) % (20.0-45.0) Monocytes (%) (Auto) % (1.0-10.0) Eosinophils (%) (Auto) % (0.0-3.0) Basophils (%) (Auto) % (0.0-2.0) Differential Total Cells Counted 100 Neutrophils % (Manual) 83 % (45-75) H Lymphocytes % (Manual) 8 % (20-45) L Monocytes % (Manual) 6 % (1-10) Eosinophils % (Manual) 1 % (0-3) Basophils % (Manual) 0 % (0-2) Band Neutrophils 2 % (0-8) Platelet Estimate Adequate Platelet Morphology Normal Hypochromasia 1+ Sodium Level 150 mEQ/L (135-145) H Potassium Level 4.2 mEQ/L (3.4-4.9) Chloride Level 109 mEQ/L (98-107) H Carbon Dioxide Level 24 mEQ/L (20-30) Anion Gap 17 (5-15) H Blood Urea Nitrogen 31 mg/dL (7-23) H Creatinine 2.6 mg/dL (0.7-1.2) H Estimat Glomerular Filtration Rate 24.9 mL/min (>60) Glucose Level 130 mg/dL (74-106) H Uric Acid 3.2 mg/dL (3.0-7.5) Calcium Level 8.3 mg/dL (8.6-10.2) L Phosphorus Level 3.7 mg/dL (2.5-4.8) Magnesium Level 1.8 mg/dL (1.7-2.5) Total Bilirubin 1.3 mg/dL (0.0-1.2) H Direct Bilirubin 0.8 mg/dL (0.1-0.3) H Gamma Glutamyl Transpeptidase 354 U/L (8-61) H Aspartate Amino Transf (AST/SGOT) 37 U/L (5-40) Alanine Aminotransferase (ALT/SGPT) 42 U/L (3-41) H Alkaline Phosphatase 248 U/L (40-129) H C-Reactive Protein, Quantitative 5.9 mg/dL (< 0.5) H Pro-B-Type Natriuretic Peptide 2263 pg/mL (0-125) H Total Protein 5.7 g/dL (6.6-8.7) L Albumin 2.7 g/dL (3.5-5.2) L Globulin 3.0 g/dL Albumin/Globulin Ratio 0.9 (1.0-2.7) L Amylase Level 132 U/L (10-110) H Lipase 199 U/L (< 60) H Objective HEAD AND NECK: No JVD. LUNGS: Clear CARDIOVASCULAR: Nl S1 and S2 with no gallop or murmur. ABDOMEN: Post median laparotomy. [place] drain still draining. EXTREMITIES: No pitting edema. HONEY DUKE Aug 07, 2016 19:03
--- NOTE | 2016-08-07 19:35 | General Progress Note ---
Assessment/Plan Assessment/Plan Assessment - SBO / gangrene - resected - septic shock - recovered - ATN - improving - abnormal LFT - ? shocked liver - s/p ex lap for anastomotic leak - Leukocytosis Recommendations NPO TPN abx PPI follow labs and exam surgical f/u OOB Subjective Allergies: Coded Allergies: No Known Allergies (Unverified , 07/26/16) Subjective patient seen earlier today d/w at bedside pt NPO and on TPN better (+) BM per RN Objective Last 24 Hour Vital Signs Date Time Temp Pulse Resp B/P Pulse Ox O2 Delivery O2 Flow Rate FiO2 08/07/16 16:12 98.2 86 19 152/92 100 Room Air 08/07/16 12:03 98.1 80 18 154/98 100 Room Air 08/07/16 08:56 84 152/91 08/07/16 08:40 98.2 08/07/16 08:02 98.2 84 20 152/91 100 Room Air 08/07/16 06:30 74 16 Room Air 2.0 21 08/07/16 04:00 98.2 78 18 158/87 99 Room Air 08/07/16 00:00 98.2 76 18 154/88 98 Room Air 08/06/16 20:30 91 18 Room Air 21 08/06/16 20:22 85 156/97 08/06/16 20:00 99.7 85 20 156/97 99 Room Air Intake and Output 08/06/16 08/07/16 19:00 07:00 Intake Total 1671 ml 985 ml Output Total 1465 ml 2416 ml Balance 206 ml -1431 ml IV Total 1671 ml 985 ml Output Urine Total 1300 ml 2300 ml Drainage Total 165 ml 116 ml # Bowel Movements 1 Laboratory Tests 08/07/16 05:50: White Blood Count 17.1H, Red Blood Count 2.62L, Hemoglobin 7.9L, Hematocrit 24.8L, Mean Corpuscular Volume 95, Mean Corpuscular Hemoglobin 30.1, Mean Corpuscular Hemoglobin Concent 31.7L, Red Cell Distribution Width 12.4, Platelet Count 404, Mean Platelet Volume 6.1L, Neutrophils (%) (Auto) , Lymphocytes (%) (Auto) , Monocytes (%) (Auto) , Eosinophils (%) (Auto) , Basophils (%) (Auto) , Differential Total Cells Counted 100, Neutrophils % ( Manual) 83H, Lymphocytes % (Manual) 8L, Monocytes % (Manual) 6, Eosinophils % ( Manual) 1, Basophils % (Manual) 0, Band Neutrophils 2, Platelet Estimate Adequate, Platelet Morphology Normal, Hypochromasia 1+, Sodium Level 150H, Potassium Level 4.2, Chloride Level 109H, Carbon Dioxide Level 24, Anion Gap 17H , Blood Urea Nitrogen 31H, Creatinine 2.6H, Estimat Glomerular Filtration Rate 24.9, Glucose Level 130H, Uric Acid 3.2, Calcium Level 8.3L, Phosphorus Level 3.7, Magnesium Level 1.8, Total Bilirubin 1.3H, Direct Bilirubin 0.8H, Gamma Glutamyl Transpeptidase 354H, Aspartate Amino Transf (AST/SGOT) 37, Alanine Aminotransferase (ALT/SGPT) 42H, Alkaline Phosphatase 248H, C-Reactive Protein, Quantitative 5.9H, Pro-B-Type Natriuretic Peptide 2263H, Total Protein 5.7L, Albumin 2.7L, Globulin 3.0, Albumin/Globulin Ratio 0.9L, Amylase Level 132H, Lipase 199H Objective WDWN man NCAT supple CTA RR abd less distended, (+)large abd wound, dressing dry, (+) [place] trace edema ALVAREZ MARTINEZ Aug 07, 2016 19:35
[2016-08-07 20:00] VITALS: BP 162/91
[2016-08-07] MEDS: Tamsulosin 0.4mg cap ORAL SCH (20:31)
[2016-08-07] MEDS: Fat Emulsion Iv 20% 240 ML in Tpn 1,992 ML IV SCH (20:32)
[2016-08-08] VITALS: BP 157/84
[2016-08-08 04:00] VITALS: BP 164/84
[2016-08-08] MEDS: Zosyn 2.25 gm in D5W 55ml IV SCH ×3 (05:16→21:49)
[2016-08-08] MEDS: NovoLOG Insulin Flexpen SUBQ SCH ×4 (06:00→17:48)
[2016-08-08 07:16] LABS: MEAN CORPUSCULAR HGB CONC 32.4 G/DL (32.0-36.0); MEAN CORPUSCULAR VOLUME 93 FL (80-99); MEAN PLATELET VOLUME 6.2 FL (6.5-10.1); PLATELET COUNT 358 K/UL (150-450); RED BLOOD COUNT 2.62 M/UL (4.70-6.10); RED CELL DISTRIBUTION WIDTH 12.6 % (11.6-14.8); WHITE BLOOD COUNT 15.2 K/UL (4.8-10.8)
[2016-08-08] MEDS: HYDROmorphone 1mg/ml Carpuject IVP PRN (07:24)
[2016-08-08 07:46] LABS: ALBUMIN/GLOBULIN RATIO 0.7 (1.0-2.7); CALCIUM 8.3 mg/dL (8.6-10.2); CREATININE 2.6 mg/dL (0.7-1.2); CRP QUANT 4.5 mg/dL (< 0.5); GLOMERULAR FILTRATION RATE 24.9 mL/min (>60); MAGNESIUM 1.7 mg/dL (1.7-2.5); POTASSIUM 3.9 mEQ/L (3.4-4.9); URIC ACID 2.9 mg/dL (3.0-7.5)
[2016-08-08 08:00] VITALS: BP 166/92
[2016-08-08 08:12] LABS: BILIRUBIN,DIRECT 0.7 mg/dL (0.1-0.3)
[2016-08-08] MEDS: Fluconazole 200mg/100ml (Pre-Mix) IV SCH (08:24)
[2016-08-08] MEDS: Enoxaparin 30mg Inj SUBQ SCH (08:30)
[2016-08-08] MEDS: Metoprolol 25mg tab ORAL SCH (09:08)
[2016-08-08] MEDS: Pantoprazole Inj IVP SCH (09:08)
[2016-08-08 09:12] LABS: BAND NEUTROPHILS % (MANUAL) 0 % (0-8); BASOPHILS % (MANUAL) 0 % (0-2); EOSINOPHILS % (MANUAL) 4 % (0-3); HYPOCHROMASIA 1+; LYMPHOCYTES % (MANUAL) 4 % (20-45); NEUTROPHILS % (MANUAL) 84 % (45-75); PLATELET ESTIMATE ADEQUATE; PLATELET MORPHOLOGY NORMAL; TOTAL CELLS COUNTED 100
--- NOTE | 2016-08-08 10:16 | General Progress Note ---
Assessment/Plan Status: stable - from renal stand Assessment/Plan status: Septic Shock leading to acute renal failure- Cr peaked 4.8 now down to 2.6 Abdominal Surgery 07/26/16 then again 05/27 and revision 08/02 Plan; Cr 2.6 unchanged- increase flomax- increase lopressor on TPN post op care- Antibiotics- Protonix IV monitor renal parameters- per GI / Surgeon Favor transfusion Subjective ROS Limited/Unobtainable: No Constitutional: Reports: malaise Allergies: Coded Allergies: No Known Allergies (Unverified , 07/26/16) Objective Last 24 Hour Vital Signs Date Time Temp Pulse Resp B/P Pulse Ox O2 Delivery O2 Flow Rate FiO2 08/08/16 09:08 82 166/92 08/08/16 08:22 79 18 Room Air 21 08/08/16 08:00 97.7 82 20 166/92 100 Room Air 08/08/16 07:54 97.7 08/08/16 04:00 97.7 81 20 164/84 99 Room Air 08/08/16 00:00 98.2 71 20 157/84 97 Room Air 08/07/16 21:37 74 18 Room Air 2.0 21 08/07/16 20:31 86 152/92 08/07/16 20:00 98.1 83 18 162/91 99 Room Air 08/07/16 16:12 98.2 86 19 152/92 100 Room Air 08/07/16 12:03 98.1 80 18 154/98 100 Room Air Intake and Output 08/07/16 08/08/16 19:00 07:00 Intake Total 1871 ml 988 ml Output Total 1600 ml 2536 ml Balance 271 ml -1548 ml IV Total 1871 ml 988 ml Output Urine Total 1550 ml 2450 ml Drainage Total 50 ml 86 ml # Bowel Movements 2 Laboratory Tests 08/08/16 05:55: White Blood Count 15.2H, Red Blood Count 2.62L, Hemoglobin 7.9L, Hematocrit 24.3L, Mean Corpuscular Volume 93, Mean Corpuscular Hemoglobin 30.0, Mean Corpuscular Hemoglobin Concent 32.4, Red Cell Distribution Width 12.6, Platelet Count 358, Mean Platelet Volume 6.2L, Neutrophils (%) (Auto) , Lymphocytes (%) ( Auto) , Monocytes (%) (Auto) , Eosinophils (%) (Auto) , Basophils (%) (Auto) , Differential Total Cells Counted 100, Neutrophils % (Manual) 84H, Lymphocytes % (Manual) 4L, Monocytes % (Manual) 8, Eosinophils % (Manual) 4H, Basophils % ( Manual) 0, Band Neutrophils 0, Platelet Estimate Adequate, Platelet Morphology Normal, Hypochromasia 1+, Sodium Level 144, Potassium Level 3.9, Chloride Level 105, Carbon Dioxide Level 25, Anion Gap 14, Blood Urea Nitrogen 30H, Creatinine 2.6H, Estimat Glomerular Filtration Rate 24.9, Glucose Level 173H, Uric Acid 2.9L, Calcium Level 8.3L, Phosphorus Level 4.0, Magnesium Level 1.7, Total Bilirubin 1.2, Direct Bilirubin 0.7H, Aspartate Amino Transf (AST/SGOT) 34, Alanine Aminotransferase (ALT/SGPT) 42H, Alkaline Phosphatase 218H, C-Reactive Protein, Quantitative 4.5H, Pro-B-Type Natriuretic Peptide 2179H, Total Protein 6.0L, Albumin 2.5L, Globulin 3.5, Albumin/Globulin Ratio 0.7L General Appearance: mild distress Abdomen: distended Objective no other changes in PE REBECCA SCHULTE Aug 08, 2016 10:16
[2016-08-08] MEDS ORDERED: Tamsulosin 0.4mg cap ORAL ONE (10:30)
[2016-08-08 12:00] VITALS: BP 147/88
--- NOTE | 2016-08-08 13:24 | General Surgery Progress Note ---
General Surgery-Progress Note Subjective Procedure Performed Exploratory Laparotomy and resection of anastomosis with anstomosis of small bowel to colon Symptoms: improved, BM Objective Last 24 Hour Vital Signs Date Time Temp Pulse Resp B/P Pulse Ox O2 Delivery O2 Flow Rate FiO2 08/08/16 12:00 97.7 73 20 147/88 97 Room Air 08/08/16 10:58 97.7 08/08/16 09:08 82 166/92 08/08/16 08:22 79 18 Room Air 21 08/08/16 08:00 97.7 82 20 166/92 100 Room Air 08/08/16 07:54 97.7 08/08/16 04:00 97.7 81 20 164/84 99 Room Air 08/08/16 00:00 98.2 71 20 157/84 97 Room Air 08/07/16 21:37 74 18 Room Air 2.0 21 08/07/16 20:31 86 152/92 08/07/16 20:00 98.1 83 18 162/91 99 Room Air 08/07/16 16:12 98.2 86 19 152/92 100 Room Air I&O Intake and Output 08/07/16 08/08/16 19:00 07:00 Intake Total 1871 ml 988 ml Output Total 1600 ml 2536 ml Balance 271 ml -1548 ml IV Total 1871 ml 988 ml Output Urine Total 1550 ml 2450 ml Drainage Total 50 ml 86 ml # Bowel Movements 2 Dressing: dry Drains: curtis Respiratory: clear Abdomen: soft, flat, non-tender, present bowel sounds Extremities: no tenderness Laboratory Tests Test 08/08/16 05:55 White Blood Count 15.2 K/UL (4.8-10.8) H Red Blood Count 2.62 M/UL (4.70-6.10) L Hemoglobin 7.9 G/DL (14.2-18.0) L Hematocrit 24.3 % (42.0-52.0) L Mean Corpuscular Volume 93 FL (80-99) Mean Corpuscular Hemoglobin 30.0 PG (27.0-31.0) Mean Corpuscular Hemoglobin Concent 32.4 G/DL (32.0-36.0) Red Cell Distribution Width 12.6 % (11.6-14.8) Platelet Count 358 K/UL (150-450) Mean Platelet Volume 6.2 FL (6.5-10.1) L Neutrophils (%) (Auto) % (45.0-75.0) Lymphocytes (%) (Auto) % (20.0-45.0) Monocytes (%) (Auto) % (1.0-10.0) Eosinophils (%) (Auto) % (0.0-3.0) Basophils (%) (Auto) % (0.0-2.0) Differential Total Cells Counted 100 Neutrophils % (Manual) 84 % (45-75) H Lymphocytes % (Manual) 4 % (20-45) L Monocytes % (Manual) 8 % (1-10) Eosinophils % (Manual) 4 % (0-3) H Basophils % (Manual) 0 % (0-2) Band Neutrophils 0 % (0-8) Platelet Estimate Adequate Platelet Morphology Normal Hypochromasia 1+ Sodium Level 144 mEQ/L (135-145) Potassium Level 3.9 mEQ/L (3.4-4.9) Chloride Level 105 mEQ/L (98-107) Carbon Dioxide Level 25 mEQ/L (20-30) Anion Gap 14 (5-15) Blood Urea Nitrogen 30 mg/dL (7-23) H Creatinine 2.6 mg/dL (0.7-1.2) H Estimat Glomerular Filtration Rate 24.9 mL/min (>60) Glucose Level 173 mg/dL (74-106) H Uric Acid 2.9 mg/dL (3.0-7.5) L Calcium Level 8.3 mg/dL (8.6-10.2) L Phosphorus Level 4.0 mg/dL (2.5-4.8) Magnesium Level 1.7 mg/dL (1.7-2.5) Total Bilirubin 1.2 mg/dL (0.0-1.2) Direct Bilirubin 0.7 mg/dL (0.1-0.3) H Aspartate Amino Transf (AST/SGOT) 34 U/L (5-40) Alanine Aminotransferase (ALT/SGPT) 42 U/L (3-41) H Alkaline Phosphatase 218 U/L (40-129) H C-Reactive Protein, Quantitative 4.5 mg/dL (< 0.5) H Pro-B-Type Natriuretic Peptide 2179 pg/mL (0-125) H Total Protein 6.0 g/dL (6.6-8.7) L Albumin 2.5 g/dL (3.5-5.2) L Globulin 3.5 g/dL Albumin/Globulin Ratio 0.7 (1.0-2.7) L Assessment Post-op Diagnosis anastomosis leakage Plan Additional Comments continue present treatment. clear liquid diet EDWIN NOGUEIRA Aug 08, 2016 13:24
--- NOTE | 2016-08-08 13:51 | General Progress Note ---
Assessment/Plan Problem List: (1) Ischemic bowel disease ICD Codes: K55.9 - Vascular disorder of intestine, unspecified SNOMED: 97383281 (2) Abdominal pain ICD Codes: R10.9 - Unspecified abdominal pain SNOMED: 37078646 (3) SBO (small bowel obstruction) ICD Codes: K56.69 - Other intestinal obstruction SNOMED: 172355859 Status: doing well, stable Subjective Constitutional: Denies: chills, diaphoresis, fever, malaise, no symptoms, other HEENT: Denies: blurred vision, double vision, ear discharge, ear pain, eye pain , mouth pain, mouth swelling, no symptoms, nose congestion, nose pain, other, tearing, throat pain, throat swelling Cardiovascular: Denies: chest pain, edema, irregular heart rate, lightheadedness, no symptoms, other, palpitations, syncope Respiratory: Denies: SOB at rest, SOB with excertion, cough, no symptoms, orthopnea, other, shortness of breath, sputum, stridor, wheezing Gastrointestinal/Abdominal: Reports: abdomen distended, black stools, blood in stool, constipated, diarrhea, difficulty swallowing, nausea, no symptoms, other , poor appetite, poor fluid intake, rectal bleeding, tarry stools, vomiting Genitourinary: Denies: burning, discharge, flank pain, frequency, hematuria, incontinence, no symptoms, other, pain, urgency 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: Denies: anxiety, depressed, emotional problems, headache, no symptoms, numbness, other, paresthesia, pre-existing deficit, seizure, tingling, tremors, weakness Allergies: Coded Allergies: No Known Allergies (Unverified , 07/26/16) Subjective Pain is controlled on current regimen. He took 1 Dilaudid 1 mg and 1 Dilaudid 2 mg IV yesterday. No complains. He is going to be started on clear liquid. Objective Last 24 Hour Vital Signs Date Time Temp Pulse Resp B/P Pulse Ox O2 Delivery O2 Flow Rate FiO2 08/08/16 12:00 97.7 73 20 147/88 97 Room Air 08/08/16 10:58 97.7 08/08/16 09:08 82 166/92 08/08/16 08:22 79 18 Room Air 21 08/08/16 08:00 97.7 82 20 166/92 100 Room Air 08/08/16 07:54 97.7 08/08/16 04:00 97.7 81 20 164/84 99 Room Air 08/08/16 00:00 98.2 71 20 157/84 97 Room Air 08/07/16 21:37 74 18 Room Air 2.0 21 08/07/16 20:31 86 152/92 08/07/16 20:00 98.1 83 18 162/91 99 Room Air 08/07/16 16:12 98.2 86 19 152/92 100 Room Air Intake and Output 08/07/16 08/08/16 19:00 07:00 Intake Total 1871 ml 988 ml Output Total 1600 ml 2536 ml Balance 271 ml -1548 ml IV Total 1871 ml 988 ml Output Urine Total 1550 ml 2450 ml Drainage Total 50 ml 86 ml # Bowel Movements 2 Laboratory Tests 08/08/16 05:55: White Blood Count 15.2H, Red Blood Count 2.62L, Hemoglobin 7.9L, Hematocrit 24.3L, Mean Corpuscular Volume 93, Mean Corpuscular Hemoglobin 30.0, Mean Corpuscular Hemoglobin Concent 32.4, Red Cell Distribution Width 12.6, Platelet Count 358, Mean Platelet Volume 6.2L, Neutrophils (%) (Auto) , Lymphocytes (%) ( Auto) , Monocytes (%) (Auto) , Eosinophils (%) (Auto) , Basophils (%) (Auto) , Differential Total Cells Counted 100, Neutrophils % (Manual) 84H, Lymphocytes % (Manual) 4L, Monocytes % (Manual) 8, Eosinophils % (Manual) 4H, Basophils % ( Manual) 0, Band Neutrophils 0, Platelet Estimate Adequate, Platelet Morphology Normal, Hypochromasia 1+, Sodium Level 144, Potassium Level 3.9, Chloride Level 105, Carbon Dioxide Level 25, Anion Gap 14, Blood Urea Nitrogen 30H, Creatinine 2.6H, Estimat Glomerular Filtration Rate 24.9, Glucose Level 173H, Uric Acid 2.9L, Calcium Level 8.3L, Phosphorus Level 4.0, Magnesium Level 1.7, Total Bilirubin 1.2, Direct Bilirubin 0.7H, Aspartate Amino Transf (AST/SGOT) 34, Alanine Aminotransferase (ALT/SGPT) 42H, Alkaline Phosphatase 218H, C-Reactive Protein, Quantitative 4.5H, Pro-B-Type Natriuretic Peptide 2179H, Total Protein 6.0L, Albumin 2.5L, Globulin 3.5, Albumin/Globulin Ratio 0.7L General Appearance: WD/WN EENT: PERRL/EOMI Neck: supple Cardiovascular: normal rate, regular rhythm Respiratory/Chest: lungs clear Abdomen: tender Extremities: non-tender Edema: no edema noted Arm (L), no edema noted Arm (R), no edema noted Leg (L), no edema noted Leg (R), no edema noted Pedal (L), no edema noted Pedal (R), no edema noted 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
--- NOTE | 2016-08-08 14:52 | General Progress Note ---
Assessment/Plan Problem List: (1) Ileus ICD Codes: K56.7 - Ileus, unspecified SNOMED: 462496988 (2) Sepsis ICD Codes: A41.9 - Sepsis, unspecified organism SNOMED: 02997302 (3) Abdominal pain ICD Codes: R10.9 - Unspecified abdominal pain SNOMED: 62163431 (4) SBO (small bowel obstruction) ICD Codes: K56.69 - Other intestinal obstruction SNOMED: 152557245 (5) Abdominal gas pain ICD Codes: R14.1 - Gas pain SNOMED: 38233043 (6) Enteritis ICD Codes: K52.9 - Noninfective gastroenteritis and colitis, unspecified SNOMED: 28767527 Status: progressing Assessment/Plan s/p third explo lap s/p re anstamosis by dr zee sepsis abdominal pain is improving leukocytosis is improving Subjective ROS Limited/Unobtainable: Yes Constitutional: Reports: no symptoms Allergies: Coded Allergies: No Known Allergies (Unverified , 07/26/16) Objective Last 24 Hour Vital Signs Date Time Temp Pulse Resp B/P Pulse Ox O2 Delivery O2 Flow Rate FiO2 08/08/16 12:00 97.7 73 20 147/88 97 Room Air 08/08/16 10:58 97.7 08/08/16 09:08 82 166/92 08/08/16 08:22 79 18 Room Air 21 08/08/16 08:00 97.7 82 20 166/92 100 Room Air 08/08/16 07:54 97.7 08/08/16 04:00 97.7 81 20 164/84 99 Room Air 08/08/16 00:00 98.2 71 20 157/84 97 Room Air 08/07/16 21:37 74 18 Room Air 2.0 21 08/07/16 20:31 86 152/92 08/07/16 20:00 98.1 83 18 162/91 99 Room Air 08/07/16 16:12 98.2 86 19 152/92 100 Room Air Intake and Output 08/07/16 08/08/16 19:00 07:00 Intake Total 1871 ml 988 ml Output Total 1600 ml 2536 ml Balance 271 ml -1548 ml IV Total 1871 ml 988 ml Output Urine Total 1550 ml 2450 ml Drainage Total 50 ml 86 ml # Bowel Movements 2 Laboratory Tests 08/08/16 05:55: White Blood Count 15.2H, Red Blood Count 2.62L, Hemoglobin 7.9L, Hematocrit 24.3L, Mean Corpuscular Volume 93, Mean Corpuscular Hemoglobin 30.0, Mean Corpuscular Hemoglobin Concent 32.4, Red Cell Distribution Width 12.6, Platelet Count 358, Mean Platelet Volume 6.2L, Neutrophils (%) (Auto) , Lymphocytes (%) ( Auto) , Monocytes (%) (Auto) , Eosinophils (%) (Auto) , Basophils (%) (Auto) , Differential Total Cells Counted 100, Neutrophils % (Manual) 84H, Lymphocytes % (Manual) 4L, Monocytes % (Manual) 8, Eosinophils % (Manual) 4H, Basophils % ( Manual) 0, Band Neutrophils 0, Platelet Estimate Adequate, Platelet Morphology Normal, Hypochromasia 1+, Sodium Level 144, Potassium Level 3.9, Chloride Level 105, Carbon Dioxide Level 25, Anion Gap 14, Blood Urea Nitrogen 30H, Creatinine 2.6H, Estimat Glomerular Filtration Rate 24.9, Glucose Level 173H, Uric Acid 2.9L, Calcium Level 8.3L, Phosphorus Level 4.0, Magnesium Level 1.7, Total Bilirubin 1.2, Direct Bilirubin 0.7H, Aspartate Amino Transf (AST/SGOT) 34, Alanine Aminotransferase (ALT/SGPT) 42H, Alkaline Phosphatase 218H, C-Reactive Protein, Quantitative 4.5H, Pro-B-Type Natriuretic Peptide 2179H, Total Protein 6.0L, Albumin 2.5L, Globulin 3.5, Albumin/Globulin Ratio 0.7L Abdomen: tender Teo Love MD Aug 08, 2016 14:51
--- NOTE | 2016-08-08 16:06 | General Progress Note ---
Assessment/Plan Assessment/Plan Assessment - SBO / gangrene - resected - septic shock - recovered - ATN - improving - abnormal LFT - ? shocked liver - s/p ex lap for anastomotic leak - Leukocytosis - improving - mild elevated amylase/lipase, likely due to surgery Recommendations NPO TPN abx PPI follow labs and exam surgical f/u OOB Subjective Allergies: Coded Allergies: No Known Allergies (Unverified , 07/26/16) Subjective patient seen earlier today d/w son in law at bedside pt NPO and on TPN better (+) BM abd less distended OOB to chair Objective Last 24 Hour Vital Signs Date Time Temp Pulse Resp B/P Pulse Ox O2 Delivery O2 Flow Rate FiO2 08/08/16 12:00 97.7 73 20 147/88 97 Room Air 08/08/16 10:58 97.7 08/08/16 09:08 82 166/92 08/08/16 08:22 79 18 Room Air 21 08/08/16 08:00 97.7 82 20 166/92 100 Room Air 08/08/16 07:54 97.7 08/08/16 04:00 97.7 81 20 164/84 99 Room Air 08/08/16 00:00 98.2 71 20 157/84 97 Room Air 08/07/16 21:37 74 18 Room Air 2.0 21 08/07/16 20:31 86 152/92 08/07/16 20:00 98.1 83 18 162/91 99 Room Air 08/07/16 16:12 98.2 86 19 152/92 100 Room Air Intake and Output 08/07/16 08/08/16 19:00 07:00 Intake Total 1871 ml 988 ml Output Total 1600 ml 2536 ml Balance 271 ml -1548 ml IV Total 1871 ml 988 ml Output Urine Total 1550 ml 2450 ml Drainage Total 50 ml 86 ml # Bowel Movements 2 Laboratory Tests 08/08/16 05:55: White Blood Count 15.2H, Red Blood Count 2.62L, Hemoglobin 7.9L, Hematocrit 24.3L, Mean Corpuscular Volume 93, Mean Corpuscular Hemoglobin 30.0, Mean Corpuscular Hemoglobin Concent 32.4, Red Cell Distribution Width 12.6, Platelet Count 358, Mean Platelet Volume 6.2L, Neutrophils (%) (Auto) , Lymphocytes (%) ( Auto) , Monocytes (%) (Auto) , Eosinophils (%) (Auto) , Basophils (%) (Auto) , Differential Total Cells Counted 100, Neutrophils % (Manual) 84H, Lymphocytes % (Manual) 4L, Monocytes % (Manual) 8, Eosinophils % (Manual) 4H, Basophils % ( Manual) 0, Band Neutrophils 0, Platelet Estimate Adequate, Platelet Morphology Normal, Hypochromasia 1+, Sodium Level 144, Potassium Level 3.9, Chloride Level 105, Carbon Dioxide Level 25, Anion Gap 14, Blood Urea Nitrogen 30H, Creatinine 2.6H, Estimat Glomerular Filtration Rate 24.9, Glucose Level 173H, Uric Acid 2.9L, Calcium Level 8.3L, Phosphorus Level 4.0, Magnesium Level 1.7, Total Bilirubin 1.2, Direct Bilirubin 0.7H, Aspartate Amino Transf (AST/SGOT) 34, Alanine Aminotransferase (ALT/SGPT) 42H, Alkaline Phosphatase 218H, C-Reactive Protein, Quantitative 4.5H, Pro-B-Type Natriuretic Peptide 2179H, Total Protein 6.0L, Albumin 2.5L, Globulin 3.5, Albumin/Globulin Ratio 0.7L Objective WDWN man NCAT supple CTA RR abd less distended, (+)large abd wound, dressing dry, (+) DAKOTA trace edema ALVAREZ MARTNIEZ Aug 08, 2016 16:06
[2016-08-08 16:32] VITALS: BP 157/90
--- NOTE | 2016-08-08 16:33 | General Progress Note ---
Assessment/Plan Assessment/Plan ASSESSMENT: 1. Leukocytosis Likely 2/2 underlying sepsis vs reactive. Has improved 2. Small bowel obstruction. status post 3rd exploratory laparotomy; s/p resection gangrene 3. Anemia 2/2 chronic disease, does not require iron 4. Sepsis, likely contributing to leukocytosis 5. Abdominal pain due to small bowel obstruction 6. Thrombocytopenia - improved RECOMMENDATIONS: 1. Monitor counts 2. Have reviewed anemia workup, does not need iron 3. Follow up on Surgery, GI, ID recs 5. Transfuse to goal hgb >7. 6. DVT ppx lovenox 7. GI ppx ppi 8. DW staff Thank you, Andrew Mendez MD Subjective Constitutional: Reports: no symptoms HEENT: Reports: no symptoms Cardiovascular: Reports: no symptoms Respiratory: Reports: no symptoms Gastrointestinal/Abdominal: Reports: poor appetite Genitourinary: Reports: no symptoms 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: Reports: no symptoms Endocrine: Reports: no symptoms Hematologic/Lymphatic: Reports: anemia Allergies: Coded Allergies: No Known Allergies (Unverified , 07/26/16) Subjective no bleeding reported, without hematochezia or hematemesis Objective Last 24 Hour Vital Signs Date Time Temp Pulse Resp B/P Pulse Ox O2 Delivery O2 Flow Rate FiO2 08/08/16 12:00 97.7 73 20 147/88 97 Room Air 08/08/16 10:58 97.7 08/08/16 09:08 82 166/92 08/08/16 08:22 79 18 Room Air 21 08/08/16 08:00 97.7 82 20 166/92 100 Room Air 08/08/16 07:54 97.7 08/08/16 04:00 97.7 81 20 164/84 99 Room Air 08/08/16 00:00 98.2 71 20 157/84 97 Room Air 08/07/16 21:37 74 18 Room Air 2.0 21 08/07/16 20:31 86 152/92 08/07/16 20:00 98.1 83 18 162/91 99 Room Air Intake and Output 08/07/16 08/08/16 19:00 07:00 Intake Total 1871 ml 988 ml Output Total 1600 ml 2536 ml Balance 271 ml -1548 ml IV Total 1871 ml 988 ml Output Urine Total 1550 ml 2450 ml Drainage Total 50 ml 86 ml # Bowel Movements 2 Laboratory Tests 08/08/16 05:55: White Blood Count 15.2H, Red Blood Count 2.62L, Hemoglobin 7.9L, Hematocrit 24.3L, Mean Corpuscular Volume 93, Mean Corpuscular Hemoglobin 30.0, Mean Corpuscular Hemoglobin Concent 32.4, Red Cell Distribution Width 12.6, Platelet Count 358, Mean Platelet Volume 6.2L, Neutrophils (%) (Auto) , Lymphocytes (%) ( Auto) , Monocytes (%) (Auto) , Eosinophils (%) (Auto) , Basophils (%) (Auto) , Differential Total Cells Counted 100, Neutrophils % (Manual) 84H, Lymphocytes % (Manual) 4L, Monocytes % (Manual) 8, Eosinophils % (Manual) 4H, Basophils % ( Manual) 0, Band Neutrophils 0, Platelet Estimate Adequate, Platelet Morphology Normal, Hypochromasia 1+, Sodium Level 144, Potassium Level 3.9, Chloride Level 105, Carbon Dioxide Level 25, Anion Gap 14, Blood Urea Nitrogen 30H, Creatinine 2.6H, Estimat Glomerular Filtration Rate 24.9, Glucose Level 173H, Uric Acid 2.9L, Calcium Level 8.3L, Phosphorus Level 4.0, Magnesium Level 1.7, Total Bilirubin 1.2, Direct Bilirubin 0.7H, Aspartate Amino Transf (AST/SGOT) 34, Alanine Aminotransferase (ALT/SGPT) 42H, Alkaline Phosphatase 218H, C-Reactive Protein, Quantitative 4.5H, Pro-B-Type Natriuretic Peptide 2179H, Total Protein 6.0L, Albumin 2.5L, Globulin 3.5, Albumin/Globulin Ratio 0.7L General Appearance: no apparent distress EENT: TMs normal Neck: supple Cardiovascular: regular rhythm Respiratory/Chest: lungs clear Abdomen: non tender Extremities: non-tender Edema: 1+ Leg (L), 1+ Leg (R) Edema: mild edema Neurologic: alert Skin: warm/dry Andrew Mendez Aug 08, 2016 16:33
--- NOTE | 2016-08-08 16:43 | Cardiac Electrophysiology PN ---
Assessment/Plan Assessment/Plan 1. Elevated troponin due to demand ischemia vs renal failure. ECG non ischemic. Troponin 1.3 to 0.33. Echo NL EF.Continue Lopressor 25 bid.No chest pain. 2. S/P Septic shock due to small bowel obstruction and gangrene. Off pressors.On iv fluid and antibiotics. WBC down to 15 3. HTN. Continue Lopressor 25 bid. Avoid ACEI or ARB for renal failure 4. Small bowel obstruction status post laparotomy and small bowel resection. S/ P 3rd surgery on 08/02/16. Follow up Dr [place]. 5. Respiratory failure. Extubated 6. Renal failure, creatinine 4.4. Today still 2.6 DW son, and RN Subjective Subjective NPO on TPN.Son and at bedside. 2 Abdominal drains still in place. No chest pain or SOB.Started on clear liquid diet. Objective Last 24 Hour Vital Signs Date Time Temp Pulse Resp B/P Pulse Ox O2 Delivery O2 Flow Rate FiO2 08/08/16 16:32 98.2 76 20 157/90 99 Room Air 08/08/16 12:00 97.7 73 20 147/88 97 Room Air 08/08/16 10:58 97.7 08/08/16 09:08 82 166/92 08/08/16 08:22 79 18 Room Air 21 08/08/16 08:00 97.7 82 20 166/92 100 Room Air 08/08/16 07:54 97.7 08/08/16 04:00 97.7 81 20 164/84 99 Room Air 08/08/16 00:00 98.2 71 20 157/84 97 Room Air 08/07/16 21:37 74 18 Room Air 2.0 21 08/07/16 20:31 86 152/92 08/07/16 20:00 98.1 83 18 162/91 99 Room Air Intake and Output 08/07/16 08/08/16 19:00 07:00 Intake Total 1871 ml 988 ml Output Total 1600 ml 2536 ml Balance 271 ml -1548 ml IV Total 1871 ml 988 ml Output Urine Total 1550 ml 2450 ml Drainage Total 50 ml 86 ml # Bowel Movements 2 Laboratory Tests Test 08/08/16 05:55 White Blood Count 15.2 K/UL (4.8-10.8) H Red Blood Count 2.62 M/UL (4.70-6.10) L Hemoglobin 7.9 G/DL (14.2-18.0) L Hematocrit 24.3 % (42.0-52.0) L Mean Corpuscular Volume 93 FL (80-99) Mean Corpuscular Hemoglobin 30.0 PG (27.0-31.0) Mean Corpuscular Hemoglobin Concent 32.4 G/DL (32.0-36.0) Red Cell Distribution Width 12.6 % (11.6-14.8) Platelet Count 358 K/UL (150-450) Mean Platelet Volume 6.2 FL (6.5-10.1) L Neutrophils (%) (Auto) % (45.0-75.0) Lymphocytes (%) (Auto) % (20.0-45.0) Monocytes (%) (Auto) % (1.0-10.0) Eosinophils (%) (Auto) % (0.0-3.0) Basophils (%) (Auto) % (0.0-2.0) Differential Total Cells Counted 100 Neutrophils % (Manual) 84 % (45-75) H Lymphocytes % (Manual) 4 % (20-45) L Monocytes % (Manual) 8 % (1-10) Eosinophils % (Manual) 4 % (0-3) H Basophils % (Manual) 0 % (0-2) Band Neutrophils 0 % (0-8) Platelet Estimate Adequate Platelet Morphology Normal Hypochromasia 1+ Sodium Level 144 mEQ/L (135-145) Potassium Level 3.9 mEQ/L (3.4-4.9) Chloride Level 105 mEQ/L (98-107) Carbon Dioxide Level 25 mEQ/L (20-30) Anion Gap 14 (5-15) Blood Urea Nitrogen 30 mg/dL (7-23) H Creatinine 2.6 mg/dL (0.7-1.2) H Estimat Glomerular Filtration Rate 24.9 mL/min (>60) Glucose Level 173 mg/dL (74-106) H Uric Acid 2.9 mg/dL (3.0-7.5) L Calcium Level 8.3 mg/dL (8.6-10.2) L Phosphorus Level 4.0 mg/dL (2.5-4.8) Magnesium Level 1.7 mg/dL (1.7-2.5) Total Bilirubin 1.2 mg/dL (0.0-1.2) Direct Bilirubin 0.7 mg/dL (0.1-0.3) H Aspartate Amino Transf (AST/SGOT) 34 U/L (5-40) Alanine Aminotransferase (ALT/SGPT) 42 U/L (3-41) H Alkaline Phosphatase 218 U/L (40-129) H C-Reactive Protein, Quantitative 4.5 mg/dL (< 0.5) H Pro-B-Type Natriuretic Peptide 2179 pg/mL (0-125) H Total Protein 6.0 g/dL (6.6-8.7) L Albumin 2.5 g/dL (3.5-5.2) L Globulin 3.5 g/dL Albumin/Globulin Ratio 0.7 (1.0-2.7) L Objective HEAD AND NECK: No JVD. LUNGS: Clear CARDIOVASCULAR: Nl S1 and S2 with no gallop or murmur. ABDOMEN: Post median laparotomy. DAK[place] drains still draining. EXTREMITIES: No pitting edema. HONEY DUKE Aug 08, 2016 16:43
--- NOTE | 2016-08-08 17:11 | Infectious Diseases Prog Note ---
Assessment/Plan Problems: (1) Septic shock Assessment & Plan: improving , S/P three EXP LAP, complicated with anastomosis leak , S/P revision, repeated blood culture so far is negative , UA is negative for infection and CXR showed atelactasis , leukocytosis is most likely due to his recent surgery , repeated CT ABD without contrast ruled out abscess, but didn't rule out anastomosis leak , surgery is aware, will continue current antibiotics regimen , and monitor WBC. stool for C diff is negative , abdominal fluids culture showed no growth. (2) SBO (small bowel obstruction) Assessment & Plan: S/P EX LAP X3 , has ileus post OP, now with persistent abdominal pain, continue IVF, and pain management , general surgery is following (3) Abdominal pain Assessment & Plan: improving, continue pain management, surgery is following (4) MIGNON (acute kidney injury) Assessment & Plan: due to sepsis and hypotension, continue IVF, titrate to keep SBP >100, renal is following (5) Ileus Assessment & Plan: improving, due to repeated EXP LAP, continue IVF, encourage walking , surgery is following Subjective Constitutional: Reports: fatigue Gastrointestinal/Abdominal: Reports: bloating, constipation Allergies: Coded Allergies: No Known Allergies (Unverified , 07/26/16) All Systems: reviewed and negative except above Subjective he feels a little better today, no bowel movement today , no fever or chills, no cough or SOB, passed [place]. Objective Vital Signs Last 24 Hour Vital Signs Date Time Temp Pulse Resp B/P Pulse Ox O2 Delivery O2 Flow Rate FiO2 08/08/16 16:32 98.2 76 20 157/90 99 Room Air 08/08/16 12:00 97.7 73 20 147/88 97 Room Air 08/08/16 10:58 97.7 08/08/16 09:08 82 166/92 08/08/16 08:22 79 18 Room Air 21 08/08/16 08:00 97.7 82 20 166/92 100 Room Air 08/08/16 07:54 97.7 08/08/16 04:00 97.7 81 20 164/84 99 Room Air 08/08/16 00:00 98.2 71 20 157/84 97 Room Air 08/07/16 21:37 74 18 Room Air 2.0 21 08/07/16 20:31 86 152/92 08/07/16 20:00 98.1 83 18 162/91 99 Room Air General Appearance: WD/WN, no acute distress HEENT: normocephalic, atraumatic, anicteric, mucous membranes moist, PERRL Respiratory/Chest: chest wall non-tender, lungs clear, normal breath sounds, no respiratory distress, no accessory muscle use Cardiovascular: normal peripheral pulses, normal rate, regular rhythm, no gallop/murmur, no JVD Abdomen: soft, non tender, no organomegaly, no mass, hypoactive bowel sounds, distended, tender Extremities: no cyanosis, no clubbing Skin: no rash, no lesions, no ulcers Laboratory Tests Test 08/08/16 05:55 White Blood Count 15.2 K/UL (4.8-10.8) H Red Blood Count 2.62 M/UL (4.70-6.10) L Hemoglobin 7.9 G/DL (14.2-18.0) L Hematocrit 24.3 % (42.0-52.0) L Mean Corpuscular Volume 93 FL (80-99) Mean Corpuscular Hemoglobin 30.0 PG (27.0-31.0) Mean Corpuscular Hemoglobin Concent 32.4 G/DL (32.0-36.0) Red Cell Distribution Width 12.6 % (11.6-14.8) Platelet Count 358 K/UL (150-450) Mean Platelet Volume 6.2 FL (6.5-10.1) L Neutrophils (%) (Auto) % (45.0-75.0) Lymphocytes (%) (Auto) % (20.0-45.0) Monocytes (%) (Auto) % (1.0-10.0) Eosinophils (%) (Auto) % (0.0-3.0) Basophils (%) (Auto) % (0.0-2.0) Differential Total Cells Counted 100 Neutrophils % (Manual) 84 % (45-75) H Lymphocytes % (Manual) 4 % (20-45) L Monocytes % (Manual) 8 % (1-10) Eosinophils % (Manual) 4 % (0-3) H Basophils % (Manual) 0 % (0-2) Band Neutrophils 0 % (0-8) Platelet Estimate Adequate Platelet Morphology Normal Hypochromasia 1+ Sodium Level 144 mEQ/L (135-145) Potassium Level 3.9 mEQ/L (3.4-4.9) Chloride Level 105 mEQ/L (98-107) Carbon Dioxide Level 25 mEQ/L (20-30) Anion Gap 14 (5-15) Blood Urea Nitrogen 30 mg/dL (7-23) H Creatinine 2.6 mg/dL (0.7-1.2) H Estimat Glomerular Filtration Rate 24.9 mL/min (>60) Glucose Level 173 mg/dL (74-106) H Uric Acid 2.9 mg/dL (3.0-7.5) L Calcium Level 8.3 mg/dL (8.6-10.2) L Phosphorus Level 4.0 mg/dL (2.5-4.8) Magnesium Level 1.7 mg/dL (1.7-2.5) Total Bilirubin 1.2 mg/dL (0.0-1.2) Direct Bilirubin 0.7 mg/dL (0.1-0.3) H Aspartate Amino Transf (AST/SGOT) 34 U/L (5-40) Alanine Aminotransferase (ALT/SGPT) 42 U/L (3-41) H Alkaline Phosphatase 218 U/L (40-129) H C-Reactive Protein, Quantitative 4.5 mg/dL (< 0.5) H Pro-B-Type Natriuretic Peptide 2179 pg/mL (0-125) H Total Protein 6.0 g/dL (6.6-8.7) L Albumin 2.5 g/dL (3.5-5.2) L Globulin 3.5 g/dL Albumin/Globulin Ratio 0.7 (1.0-2.7) L Current Medications Medications (Trade) Dose Ordered Sig/Arti Route PRN Reason Start Time Stop Time Status Last Admin Dose Admin Acetaminophen (Tylenol) 650 mg Q4H PRN RECTAL FEVER>100.5 08/03/16 19:00 09/02/16 18:59 Albuterol/ Ipratropium 3 ml 3 ml Q4H PRN HHN Shortness of Breath 08/04/16 09:30 08/09/16 09:29 Dextrose 1,000 ml @ 0 mls/hr Q24H PRN IV PN interrupted or unavailable 08/03/16 21:00 09/02/16 20:59 Dextrose (Dextrose 50%) STAT PRN IV Hypoglycemia 08/03/16 19:00 09/02/16 18:59 Enoxaparin Sodium (Lovenox) 30 mg DAILY SUBQ 08/04/16 09:00 09/03/16 08:59 08/08/16 08:30 Fat Emulsion Intravenous 240 ml/Amino Acids/ Electrolytes/ Dextrose 2,232 ml @ 93 mls/hr Q24H IV 08/04/16 21:00 09/03/16 20:59 08/07/16 20:32 Fluconazole/ Sodium Chloride (Diflucan 200mg/ 100ml Premix) 100 ml @ 100 mls/hr Q24H IV 08/07/16 09:00 08/14/16 08:59 08/08/16 08:24 Hydromorphone HCl (Dilaudid) 0.5 mg Q3H PRN IVP Pain Score 1-3 08/03/16 19:30 08/10/16 19:29 08/06/16 14:28 Hydromorphone HCl (Dilaudid) 1 mg Q3H PRN IVP pain score 4-6 08/04/16 20:30 08/11/16 20:29 08/08/16 07:24 Hydromorphone HCl (Dilaudid) 2 mg Q3H PRN IVP pain score 7-10 08/04/16 20:30 08/11/16 20:29 08/08/16 10:28 Insulin Aspart (NovoLOG) No Dose Q6HR SUBQ 08/04/16 00:00 09/03/16 00:00 08/08/16 11:33 Linezolid (Zyvox) 300 ml @ 300 mls/hr Q12HR@0600,1800 IVPB 08/04/16 06:00 08/09/16 05:59 08/08/16 06:10 Metoprolol Tartrate (Lopressor) 50 mg Q12HR ORAL 08/08/16 21:00 09/07/16 20:59 Mupirocin (Bactroban Oint) 1 applic Q8H PRN TOPIC dressing change 08/07/16 19:15 08/12/16 19:14 Ondansetron HCl (Zofran) 4 mg Q6H PRN IVP Nausea & Vomiting 08/03/16 19:10 09/02/16 19:09 Pantoprazole (Protonix) 40 mg DAILY IVP 08/04/16 09:00 09/03/16 08:59 08/08/16 09:08 Piperacillin Sod/ Tazobactam Sod 2.25 gm/Dextrose 55 ml @ 110 mls/hr Q8HR IV 08/04/16 14:00 08/09/16 13:59 08/08/16 13:30 Simethicone (Mylicon) 80 mg QIDPRN PRN NG GAS PAIN 08/03/16 19:00 09/02/16 18:59 08/04/16 19:39 Tamsulosin HCl (Flomax) 0.4 mg BID ORAL 08/08/16 18:00 09/07/16 17:59 Temazepam (Restoril) 7.5 mg HSPRN PRN ORAL Insomnia 08/03/16 20:00 08/10/16 19:59 08/07/16 21:39 Piyush Harris M.D. Aug 08, 2016 17:11
[2016-08-08] MEDS: Tamsulosin 0.4mg cap ORAL SCH (17:46)
[2016-08-08] MEDS: Hydromorphone 0.5mg/0.5ml inj IVP PRN (17:46)
--- NOTE | 2016-08-08 18:02 | Pulmonology Progress Note ---
Assessment/Plan Problems: (1) SBO (small bowel obstruction) (2) MIGNON (acute kidney injury) (3) Ileus (4) Enteritis (5) Non-ST elevation (NSTEMI) myocardial infarction Assessment/Plan advance diet as tolerated continue antibiotics check electrolytes wbc slowly decreasing check electrolytes daily Subjective ROS Limited/Unobtainable: No Interval Events: eating full liquied Allergies: Coded Allergies: No Known Allergies (Unverified , 07/26/16) Objective Last 24 Hour Vital Signs Date Time Temp Pulse Resp B/P Pulse Ox O2 Delivery O2 Flow Rate FiO2 08/08/16 16:32 98.2 76 20 157/90 99 Room Air 08/08/16 12:00 97.7 73 20 147/88 97 Room Air 08/08/16 10:58 97.7 08/08/16 09:08 82 166/92 08/08/16 08:22 79 18 Room Air 21 08/08/16 08:00 97.7 82 20 166/92 100 Room Air 08/08/16 07:54 97.7 08/08/16 04:00 97.7 81 20 164/84 99 Room Air 08/08/16 00:00 98.2 71 20 157/84 97 Room Air 08/07/16 21:37 74 18 Room Air 2.0 21 08/07/16 20:31 86 152/92 08/07/16 20:00 98.1 83 18 162/91 99 Room Air Intake and Output 08/07/16 08/08/16 19:00 07:00 Intake Total 1871 ml 988 ml Output Total 1600 ml 2536 ml Balance 271 ml -1548 ml IV Total 1871 ml 988 ml Output Urine Total 1550 ml 2450 ml Drainage Total 50 ml 86 ml # Bowel Movements 2 General Appearance: WD/WN HEENT: normocephalic, atraumatic Respiratory/Chest: chest wall non-tender Abdomen: normal bowel sounds, soft, non tender Laboratory Tests 08/08/16 05:55: White Blood Count 15.2H, Red Blood Count 2.62L, Hemoglobin 7.9L, Hematocrit 24.3L, Mean Corpuscular Volume 93, Mean Corpuscular Hemoglobin 30.0, Mean Corpuscular Hemoglobin Concent 32.4, Red Cell Distribution Width 12.6, Platelet Count 358, Mean Platelet Volume 6.2L, Neutrophils (%) (Auto) , Lymphocytes (%) ( Auto) , Monocytes (%) (Auto) , Eosinophils (%) (Auto) , Basophils (%) (Auto) , Differential Total Cells Counted 100, Neutrophils % (Manual) 84H, Lymphocytes % (Manual) 4L, Monocytes % (Manual) 8, Eosinophils % (Manual) 4H, Basophils % ( Manual) 0, Band Neutrophils 0, Platelet Estimate Adequate, Platelet Morphology Normal, Hypochromasia 1+, Sodium Level 144, Potassium Level 3.9, Chloride Level 105, Carbon Dioxide Level 25, Anion Gap 14, Blood Urea Nitrogen 30H, Creatinine 2.6H, Estimat Glomerular Filtration Rate 24.9, Glucose Level 173H, Uric Acid 2.9L, Calcium Level 8.3L, Phosphorus Level 4.0, Magnesium Level 1.7, Total Bilirubin 1.2, Direct Bilirubin 0.7H, Aspartate Amino Transf (AST/SGOT) 34, Alanine Aminotransferase (ALT/SGPT) 42H, Alkaline Phosphatase 218H, C-Reactive Protein, Quantitative 4.5H, Pro-B-Type Natriuretic Peptide 2179H, Total Protein 6.0L, Albumin 2.5L, Globulin 3.5, Albumin/Globulin Ratio 0.7L Current Medications Medications (Trade) Dose Ordered Sig/Arti Route PRN Reason Start Time Stop Time Status Last Admin Dose Admin Acetaminophen (Tylenol) 650 mg Q4H PRN RECTAL FEVER>100.5 08/03/16 19:00 09/02/16 18:59 Albuterol/ Ipratropium 3 ml 3 ml Q4H PRN HHN Shortness of Breath 08/04/16 09:30 08/09/16 09:29 Dextrose 1,000 ml @ 0 mls/hr Q24H PRN IV PN interrupted or unavailable 08/03/16 21:00 09/02/16 20:59 Dextrose (Dextrose 50%) STAT PRN IV Hypoglycemia 08/03/16 19:00 09/02/16 18:59 Enoxaparin Sodium (Lovenox) 30 mg DAILY SUBQ 08/04/16 09:00 09/03/16 08:59 08/08/16 08:30 Fat Emulsion Intravenous 240 ml/Amino Acids/ Electrolytes/ Dextrose 2,232 ml @ 93 mls/hr Q24H IV 08/04/16 21:00 09/03/16 20:59 08/07/16 20:32 Fluconazole/ Sodium Chloride (Diflucan 200mg/ 100ml Premix) 100 ml @ 100 mls/hr Q24H IV 08/07/16 09:00 08/14/16 08:59 08/08/16 08:24 Hydromorphone HCl (Dilaudid) 0.5 mg Q3H PRN IVP Pain Score 1-3 08/03/16 19:30 08/10/16 19:29 08/08/16 17:46 Hydromorphone HCl (Dilaudid) 1 mg Q3H PRN IVP pain score 4-6 08/04/16 20:30 08/11/16 20:29 08/08/16 07:24 Hydromorphone HCl (Dilaudid) 2 mg Q3H PRN IVP pain score 7-10 08/04/16 20:30 08/11/16 20:29 08/08/16 10:28 Insulin Aspart (NovoLOG) No Dose Q6HR SUBQ 08/04/16 00:00 09/03/16 00:00 08/08/16 17:48 Linezolid (Zyvox) 300 ml @ 300 mls/hr Q12HR@0600,1800 IVPB 08/04/16 06:00 08/09/16 05:59 08/08/16 17:46 Metoprolol Tartrate (Lopressor) 50 mg Q12HR ORAL 08/08/16 21:00 09/07/16 20:59 Mupirocin (Bactroban Oint) 1 applic Q8H PRN TOPIC dressing change 08/07/16 19:15 08/12/16 19:14 Ondansetron HCl (Zofran) 4 mg Q6H PRN IVP Nausea & Vomiting 08/03/16 19:10 09/02/16 19:09 Pantoprazole (Protonix) 40 mg DAILY IVP 08/04/16 09:00 09/03/16 08:59 08/08/16 09:08 Piperacillin Sod/ Tazobactam Sod 2.25 gm/Dextrose 55 ml @ 110 mls/hr Q8HR IV 08/04/16 14:00 08/09/16 13:59 08/08/16 13:30 Simethicone (Mylicon) 80 mg QIDPRN PRN NG GAS PAIN 08/03/16 19:00 09/02/16 18:59 08/04/16 19:39 Tamsulosin HCl (Flomax) 0.4 mg BID ORAL 08/08/16 18:00 09/07/16 17:59 08/08/16 17:46 Temazepam (Restoril) 7.5 mg HSPRN PRN ORAL Insomnia 08/03/16 20:00 08/10/16 19:59 08/07/16 21:39 MAIKEL ESPINOSA Aug 08, 2016 18:02
[2016-08-08 20:00] VITALS: BP 145/88
[2016-08-08] MEDS: Simethicone 80mg tab NG PRN (21:49)
[2016-08-08] MEDS: Fat Emulsion Iv 20% 240 ML in Tpn 1,992 ML IV SCH (21:53)
[2016-08-08] MEDS: Metoprolol 50mg tab ORAL SCH (22:01)
[2016-08-09 00:48] VITALS: BP 141/83
[2016-08-09 04:00] VITALS: BP 149/69
[2016-08-09] MEDS: Zosyn 2.25 gm in D5W 55ml IV SCH (05:52)
[2016-08-09] MEDS: NovoLOG Insulin Flexpen SUBQ SCH ×4 (05:53→19:00)
[2016-08-09 07:18] LABS: MEAN CORPUSCULAR HEMOGLOBIN 29.6 PG (27.0-31.0); MEAN CORPUSCULAR HGB CONC 32.3 G/DL (32.0-36.0); MEAN CORPUSCULAR VOLUME 92 FL (80-99); MEAN PLATELET VOLUME 6.3 FL (6.5-10.1); PLATELET COUNT 314 K/UL (150-450); RED BLOOD COUNT 2.52 M/UL (4.70-6.10); RED CELL DISTRIBUTION WIDTH 12.7 % (11.6-14.8); WHITE BLOOD COUNT 12.3 K/UL (4.8-10.8)
[2016-08-09 07:23] LABS: ALBUMIN/GLOBULIN RATIO 0.7 (1.0-2.7); CREATININE 2.6 mg/dL (0.7-1.2); CRP QUANT 4.4 mg/dL (< 0.5); GLOMERULAR FILTRATION RATE 24.9 mL/min (>60); MAGNESIUM 1.8 mg/dL (1.7-2.5); PHOSPHORUS 4.2 mg/dL (2.5-4.8); POTASSIUM 4.2 mEQ/L (3.4-4.9); TOTAL PROTEIN 6.1 g/dL (6.6-8.7)
[2016-08-09 07:43] LABS: AMYLASE 145 U/L (10-110); LIPASE 194 U/L (< 60)
[2016-08-09 08:00] VITALS: BP 153/90
[2016-08-09 08:02] LABS: BILIRUBIN,DIRECT 0.7 mg/dL (0.1-0.3)
[2016-08-09 08:55] LABS: BAND NEUTROPHILS % (MANUAL) 0 % (0-8); BASOPHILS % (MANUAL) 0 % (0-2); EOSINOPHILS % (MANUAL) 4 % (0-3); LYMPHOCYTES % (MANUAL) 8 % (20-45); NEUTROPHILS % (MANUAL) 82 % (45-75); PLATELET ESTIMATE ADEQUATE; PLATELET MORPHOLOGY NORMAL; TOTAL CELLS COUNTED 100
[2016-08-09 08:56] LABS: HYPOCHROMASIA 1+
[2016-08-09] MEDS: Pantoprazole Inj IVP SCH (08:59)
[2016-08-09] MEDS: Fluconazole 200mg/100ml (Pre-Mix) IV SCH (08:59)
[2016-08-09] MEDS: Tamsulosin 0.4mg cap ORAL SCH ×2 (08:59→09:08)
[2016-08-09] MEDS: Metoprolol 50mg tab ORAL SCH ×2 (09:09→21:21)
[2016-08-09] MEDS: Enoxaparin 30mg Inj SUBQ SCH (09:15)
--- NOTE | 2016-08-09 09:44 | General Progress Note ---
Assessment/Plan Assessment/Plan ASSESSMENT: 1. Leukocytosis Likely 2/2 underlying sepsis vs reactive. Has improved 2. Small bowel obstruction. status post 3rd exploratory laparotomy; s/p resection gangrene 3. Anemia 2/2 chronic disease, does not require iron, potential slow bleed but unlikely 4. Sepsis, likely contributing to leukocytosis 5. Abdominal pain due to small bowel obstruction 6. Thrombocytopenia - improved RECOMMENDATIONS: 1. Monitor counts 2. Does not need iron 3. Follow up on Surgery, GI, ID recs 5. Transfuse to goal hgb >7. 6. DVT ppx lovenox 7. GI ppx ppi 8. DW staff Thank you, Andrew Mendez MD Subjective Constitutional: Reports: no symptoms HEENT: Reports: no symptoms Cardiovascular: Reports: no symptoms Respiratory: Reports: no symptoms Gastrointestinal/Abdominal: Reports: poor appetite Genitourinary: Reports: no symptoms 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: Reports: no symptoms Endocrine: Reports: no symptoms Hematologic/Lymphatic: Reports: anemia Allergies: Coded Allergies: No Known Allergies (Unverified , 07/26/16) Subjective no bleeding reported, no hematochezia or hematemesis Objective Last 24 Hour Vital Signs Date Time Temp Pulse Resp B/P Pulse Ox O2 Delivery O2 Flow Rate FiO2 08/09/16 09:09 81 153/90 08/09/16 08:00 98.2 81 20 153/90 98 Room Air 08/09/16 08:00 87 16 Room Air 08/09/16 04:00 98.2 76 20 149/69 98 Room Air 08/09/16 00:48 97.9 74 20 141/83 98 Room Air 08/08/16 22:01 89 145/88 08/08/16 20:00 97.0 89 18 145/88 99 Room Air 08/08/16 19:10 82 18 Room Air 21 08/08/16 18:38 98.2 08/08/16 16:32 98.2 76 20 157/90 99 Room Air 08/08/16 12:00 97.7 73 20 147/88 97 Room Air 08/08/16 10:58 97.7 Intake and Output 08/08/16 08/09/16 19:00 07:00 Intake Total 1904 ml 1318 ml Output Total 1590 ml 2419 ml Balance 314 ml -1101 ml Intake Oral 240 ml 240 ml IV Total 1664 ml 1078 ml Output Urine Total 1550 ml 2400 ml Drainage Total 40 ml 19 ml # Bowel Movements 1 2 Laboratory Tests 08/09/16 05:50: White Blood Count 12.3H, Red Blood Count 2.52L, Hemoglobin 7.5L, Hematocrit 23.1L, Mean Corpuscular Volume 92, Mean Corpuscular Hemoglobin 29.6, Mean Corpuscular Hemoglobin Concent 32.3, Red Cell Distribution Width 12.7, Platelet Count 314, Mean Platelet Volume 6.3L, Neutrophils (%) (Auto) , Lymphocytes (%) ( Auto) , Monocytes (%) (Auto) , Eosinophils (%) (Auto) , Basophils (%) (Auto) , Differential Total Cells Counted 100, Neutrophils % (Manual) 82H, Lymphocytes % (Manual) 8L, Monocytes % (Manual) 6, Eosinophils % (Manual) 4H, Basophils % ( Manual) 0, Band Neutrophils 0, Platelet Estimate Adequate, Platelet Morphology Normal, Hypochromasia 1+, Sodium Level 144, Potassium Level 4.2, Chloride Level 105, Carbon Dioxide Level 25, Anion Gap 14, Blood Urea Nitrogen 30H, Creatinine 2.6H, Estimat Glomerular Filtration Rate 24.9, Glucose Level 195H, Calcium Level 8.0L, Phosphorus Level 4.2, Magnesium Level 1.8, Total Bilirubin 1.1, Direct Bilirubin 0.7H, Aspartate Amino Transf (AST/SGOT) 31, Alanine Aminotransferase (ALT/SGPT) 41, Alkaline Phosphatase 180H, C-Reactive Protein, Quantitative 4.4H, Pro-B-Type Natriuretic Peptide 1927H, Total Protein 6.1L, Albumin 2.6L, Globulin 3.5, Albumin/Globulin Ratio 0.7L, Amylase Level 145H, Lipase 194H General Appearance: no apparent distress EENT: normal ENT inspection Neck: normal alignment Cardiovascular: normal rate Respiratory/Chest: lungs clear Abdomen: soft Extremities: non-tender Edema: 1+ Leg (L), 1+ Leg (R) Edema: mild edema Neurologic: no motor/sensory deficits Skin: warm/dry Andrew Mendez Aug 09, 2016 09:44
[2016-08-09] MEDS: HYDROmorphone 1mg/ml Carpuject IVP PRN ×2 (11:47→15:59)
--- NOTE | 2016-08-09 11:49 | General Surgery Progress Note ---
General Surgery-Progress Note Subjective Procedure Performed Exploratory Laparotomy and resection of anastomosis with anstomosis of small bowel to colon Symptoms: BM Objective Last 24 Hour Vital Signs Date Time Temp Pulse Resp B/P Pulse Ox O2 Delivery O2 Flow Rate FiO2 08/09/16 09:09 81 153/90 08/09/16 08:00 98.2 81 20 153/90 98 Room Air 08/09/16 08:00 87 16 Room Air 21 08/09/16 04:00 98.2 76 20 149/69 98 Room Air 08/09/16 00:48 97.9 74 20 141/83 98 Room Air 08/08/16 22:01 89 145/88 08/08/16 20:00 97.0 89 18 145/88 99 Room Air 08/08/16 19:10 82 18 Room Air 21 08/08/16 18:38 98.2 08/08/16 16:32 98.2 76 20 157/90 99 Room Air 08/08/16 12:00 97.7 73 20 147/88 97 Room Air I&O Intake and Output 08/08/16 08/09/16 19:00 07:00 Intake Total 1904 ml 1318 ml Output Total 1590 ml 2419 ml Balance 314 ml -1101 ml Intake Oral 240 ml 240 ml IV Total 1664 ml 1078 ml Output Urine Total 1550 ml 2400 ml Drainage Total 40 ml 19 ml # Bowel Movements 1 2 Dressing: dry Drains: curtis Respiratory: clear Abdomen: soft, flat, non-tender, present bowel sounds Extremities: no tenderness Laboratory Tests Test 08/09/16 05:50 White Blood Count 12.3 K/UL (4.8-10.8) H Red Blood Count 2.52 M/UL (4.70-6.10) L Hemoglobin 7.5 G/DL (14.2-18.0) L Hematocrit 23.1 % (42.0-52.0) L Mean Corpuscular Volume 92 FL (80-99) Mean Corpuscular Hemoglobin 29.6 PG (27.0-31.0) Mean Corpuscular Hemoglobin Concent 32.3 G/DL (32.0-36.0) Red Cell Distribution Width 12.7 % (11.6-14.8) Platelet Count 314 K/UL (150-450) Mean Platelet Volume 6.3 FL (6.5-10.1) L Neutrophils (%) (Auto) % (45.0-75.0) Lymphocytes (%) (Auto) % (20.0-45.0) Monocytes (%) (Auto) % (1.0-10.0) Eosinophils (%) (Auto) % (0.0-3.0) Basophils (%) (Auto) % (0.0-2.0) Differential Total Cells Counted 100 Neutrophils % (Manual) 82 % (45-75) H Lymphocytes % (Manual) 8 % (20-45) L Monocytes % (Manual) 6 % (1-10) Eosinophils % (Manual) 4 % (0-3) H Basophils % (Manual) 0 % (0-2) Band Neutrophils 0 % (0-8) Platelet Estimate Adequate Platelet Morphology Normal Hypochromasia 1+ Sodium Level 144 mEQ/L (135-145) Potassium Level 4.2 mEQ/L (3.4-4.9) Chloride Level 105 mEQ/L (98-107) Carbon Dioxide Level 25 mEQ/L (20-30) Anion Gap 14 (5-15) Blood Urea Nitrogen 30 mg/dL (7-23) H Creatinine 2.6 mg/dL (0.7-1.2) H Estimat Glomerular Filtration Rate 24.9 mL/min (>60) Glucose Level 195 mg/dL (74-106) H Calcium Level 8.0 mg/dL (8.6-10.2) L Phosphorus Level 4.2 mg/dL (2.5-4.8) Magnesium Level 1.8 mg/dL (1.7-2.5) Total Bilirubin 1.1 mg/dL (0.0-1.2) Direct Bilirubin 0.7 mg/dL (0.1-0.3) H Aspartate Amino Transf (AST/SGOT) 31 U/L (5-40) Alanine Aminotransferase (ALT/SGPT) 41 U/L (3-41) Alkaline Phosphatase 180 U/L (40-129) H C-Reactive Protein, Quantitative 4.4 mg/dL (< 0.5) H Pro-B-Type Natriuretic Peptide 1927 pg/mL (0-125) H Total Protein 6.1 g/dL (6.6-8.7) L Albumin 2.6 g/dL (3.5-5.2) L Globulin 3.5 g/dL Albumin/Globulin Ratio 0.7 (1.0-2.7) L Amylase Level 145 U/L (10-110) H Lipase 194 U/L (< 60) H Assessment Post-op Diagnosis anastomosis leakage Plan Additional Comments advance diet EDWIN NOGUEIRA Aug 09, 2016 11:49
[2016-08-09 12:00] VITALS: BP 156/91
--- NOTE | 2016-08-09 13:45 | General Progress Note ---
Assessment/Plan Problem List: (1) Ileus ICD Codes: K56.7 - Ileus, unspecified SNOMED: 235621137 (2) Sepsis ICD Codes: A41.9 - Sepsis, unspecified organism SNOMED: 83426268 (3) Abdominal pain ICD Codes: R10.9 - Unspecified abdominal pain SNOMED: 37091764 (4) SBO (small bowel obstruction) ICD Codes: K56.69 - Other intestinal obstruction SNOMED: 060336775 (5) Abdominal gas pain ICD Codes: R14.1 - Gas pain SNOMED: 96892943 (6) Enteritis ICD Codes: K52.9 - Noninfective gastroenteritis and colitis, unspecified SNOMED: 29422108 Status: progressing Assessment/Plan s/p third explo lap s/p re anstamosis by dr zee sepsis abdominal pain is improving leukocytosis is improving however anemia is getting worse will discuss w gi and heme/onc re decreasing hb Subjective Gastrointestinal/Abdominal: Reports: abdominal pain Allergies: Coded Allergies: No Known Allergies (Unverified , 07/26/16) Objective Last 24 Hour Vital Signs Date Time Temp Pulse Resp B/P Pulse Ox O2 Delivery O2 Flow Rate FiO2 08/09/16 12:17 98.8 08/09/16 12:00 98.8 70 20 156/91 97 Room Air 08/09/16 09:09 81 153/90 08/09/16 08:00 98.2 81 20 153/90 98 Room Air 08/09/16 08:00 87 16 Room Air 21 08/09/16 04:00 98.2 76 20 149/69 98 Room Air 08/09/16 00:48 97.9 74 20 141/83 98 Room Air 08/08/16 22:01 89 145/88 08/08/16 20:00 97.0 89 18 145/88 99 Room Air 08/08/16 19:10 82 18 Room Air 21 08/08/16 18:38 98.2 08/08/16 16:32 98.2 76 20 157/90 99 Room Air Intake and Output 08/08/16 08/09/16 19:00 07:00 Intake Total 1904 ml 1318 ml Output Total 1590 ml 2419 ml Balance 314 ml -1101 ml Intake Oral 240 ml 240 ml IV Total 1664 ml 1078 ml Output Urine Total 1550 ml 2400 ml Drainage Total 40 ml 19 ml # Bowel Movements 1 2 Laboratory Tests 08/09/16 05:50: White Blood Count 12.3H, Red Blood Count 2.52L, Hemoglobin 7.5L, Hematocrit 23.1L, Mean Corpuscular Volume 92, Mean Corpuscular Hemoglobin 29.6, Mean Corpuscular Hemoglobin Concent 32.3, Red Cell Distribution Width 12.7, Platelet Count 314, Mean Platelet Volume 6.3L, Neutrophils (%) (Auto) , Lymphocytes (%) ( Auto) , Monocytes (%) (Auto) , Eosinophils (%) (Auto) , Basophils (%) (Auto) , Differential Total Cells Counted 100, Neutrophils % (Manual) 82H, Lymphocytes % (Manual) 8L, Monocytes % (Manual) 6, Eosinophils % (Manual) 4H, Basophils % ( Manual) 0, Band Neutrophils 0, Platelet Estimate Adequate, Platelet Morphology Normal, Hypochromasia 1+, Sodium Level 144, Potassium Level 4.2, Chloride Level 105, Carbon Dioxide Level 25, Anion Gap 14, Blood Urea Nitrogen 30H, Creatinine 2.6H, Estimat Glomerular Filtration Rate 24.9, Glucose Level 195H, Calcium Level 8.0L, Phosphorus Level 4.2, Magnesium Level 1.8, Total Bilirubin 1.1, Direct Bilirubin 0.7H, Aspartate Amino Transf (AST/SGOT) 31, Alanine Aminotransferase (ALT/SGPT) 41, Alkaline Phosphatase 180H, C-Reactive Protein, Quantitative 4.4H, Pro-B-Type Natriuretic Peptide 1927H, Total Protein 6.1L, Albumin 2.6L, Globulin 3.5, Albumin/Globulin Ratio 0.7L, Amylase Level 145H, Lipase 194H Cardiovascular: normal rate Respiratory/Chest: lungs clear Abdomen: tender Teo Love MD Aug 09, 2016 13:44
[2016-08-09] MEDS: Zoysn 3.37gm in D5W 110ml IVPB SCH (15:59)
[2016-08-09] MEDS: Simethicone 80mg tab NG PRN (15:59)
--- NOTE | 2016-08-09 16:20 | Pulmonology Progress Note ---
Assessment/Plan Problems: (1) SBO (small bowel obstruction) (2) MIGNON (acute kidney injury) (3) Ileus (4) Enteritis (5) Non-ST elevation (NSTEMI) myocardial infarction Assessment/Plan improving wbc decreasing continue antibiotics check electrolytes advance diet dvt prophylaxis check cultures Subjective ROS Limited/Unobtainable: No Constitutional: Reports: no symptoms HEENT: Repors: no symptoms Respiratory: Reports: no symptoms Allergies: Coded Allergies: No Known Allergies (Unverified , 07/26/16) Objective Last 24 Hour Vital Signs Date Time Temp Pulse Resp B/P Pulse Ox O2 Delivery O2 Flow Rate FiO2 08/09/16 12:17 98.8 08/09/16 12:00 98.8 70 20 156/91 97 Room Air 08/09/16 09:09 81 153/90 08/09/16 08:00 98.2 81 20 153/90 98 Room Air 08/09/16 08:00 87 16 Room Air 21 08/09/16 04:00 98.2 76 20 149/69 98 Room Air 08/09/16 00:48 97.9 74 20 141/83 98 Room Air 08/08/16 22:01 89 145/88 08/08/16 20:00 97.0 89 18 145/88 99 Room Air 08/08/16 19:10 82 18 Room Air 21 08/08/16 18:38 98.2 08/08/16 16:32 98.2 76 20 157/90 99 Room Air Intake and Output 08/08/16 08/09/16 19:00 07:00 Intake Total 1904 ml 1318 ml Output Total 1590 ml 2419 ml Balance 314 ml -1101 ml Intake Oral 240 ml 240 ml IV Total 1664 ml 1078 ml Output Urine Total 1550 ml 2400 ml Drainage Total 40 ml 19 ml # Bowel Movements 1 2 General Appearance: WD/WN HEENT: normocephalic, atraumatic Respiratory/Chest: chest wall non-tender, lungs clear Cardiovascular: normal peripheral pulses, normal rate Abdomen: normal bowel sounds, soft, non tender Genitourinary: normal external genitalia Extremities: no clubbing Skin: no lesions Laboratory Tests 08/09/16 05:50: White Blood Count 12.3H, Red Blood Count 2.52L, Hemoglobin 7.5L, Hematocrit 23.1L, Mean Corpuscular Volume 92, Mean Corpuscular Hemoglobin 29.6, Mean Corpuscular Hemoglobin Concent 32.3, Red Cell Distribution Width 12.7, Platelet Count 314, Mean Platelet Volume 6.3L, Neutrophils (%) (Auto) , Lymphocytes (%) ( Auto) , Monocytes (%) (Auto) , Eosinophils (%) (Auto) , Basophils (%) (Auto) , Differential Total Cells Counted 100, Neutrophils % (Manual) 82H, Lymphocytes % (Manual) 8L, Monocytes % (Manual) 6, Eosinophils % (Manual) 4H, Basophils % ( Manual) 0, Band Neutrophils 0, Platelet Estimate Adequate, Platelet Morphology Normal, Hypochromasia 1+, Sodium Level 144, Potassium Level 4.2, Chloride Level 105, Carbon Dioxide Level 25, Anion Gap 14, Blood Urea Nitrogen 30H, Creatinine 2.6H, Estimat Glomerular Filtration Rate 24.9, Glucose Level 195H, Calcium Level 8.0L, Phosphorus Level 4.2, Magnesium Level 1.8, Total Bilirubin 1.1, Direct Bilirubin 0.7H, Aspartate Amino Transf (AST/SGOT) 31, Alanine Aminotransferase (ALT/SGPT) 41, Alkaline Phosphatase 180H, C-Reactive Protein, Quantitative 4.4H, Pro-B-Type Natriuretic Peptide 1927H, Total Protein 6.1L, Albumin 2.6L, Globulin 3.5, Albumin/Globulin Ratio 0.7L, Amylase Level 145H, Lipase 194H Current Medications Medications (Trade) Dose Ordered Sig/Arti Route PRN Reason Start Time Stop Time Status Last Admin Dose Admin Acetaminophen (Tylenol) 650 mg Q4H PRN RECTAL FEVER>100.5 08/03/16 19:00 09/02/16 18:59 Dextrose (D10w) 1,000 ml @ 0 mls/hr Q24H PRN IV PN interrupted or unavailable 08/03/16 21:00 09/02/16 20:59 Dextrose (Dextrose 50%) STAT PRN IV Hypoglycemia 08/03/16 19:00 09/02/16 18:59 Enoxaparin Sodium (Lovenox) 30 mg DAILY SUBQ 08/04/16 09:00 09/03/16 08:59 08/09/16 09:15 Fat Emulsion Intravenous 240 ml/Amino Acids/ Electrolytes/ Dextrose 2,232 ml @ 93 mls/hr Q24H IV 08/04/16 21:00 09/03/16 20:59 08/08/16 21:53 Fluconazole/ Sodium Chloride (Diflucan 200mg/ 100ml Premix) 100 ml @ 100 mls/hr Q24H IV 08/07/16 09:00 08/14/16 08:59 08/09/16 08:59 Hydromorphone HCl (Dilaudid) 0.5 mg Q3H PRN IVP Pain Score 1-3 08/03/16 19:30 08/10/16 19:29 08/08/16 17:46 Hydromorphone HCl (Dilaudid) 1 mg Q3H PRN IVP pain score 4-6 08/04/16 20:30 08/11/16 20:29 08/09/16 15:59 Hydromorphone HCl (Dilaudid) 2 mg Q3H PRN IVP pain score 7-10 08/04/16 20:30 08/11/16 20:29 08/09/16 06:08 Insulin Aspart (NovoLOG) No Dose Q6HR SUBQ 08/04/16 00:00 09/03/16 00:00 08/09/16 11:57 Linezolid 300 ml @ 300 mls/hr Q12HR@0600,1800 IVPB 08/09/16 18:00 08/16/16 17:59 Metoprolol Tartrate (Lopressor) 50 mg Q12HR ORAL 08/08/16 21:00 09/07/16 20:59 08/09/16 09:09 Mupirocin (Bactroban Oint) 1 applic Q8H PRN TOPIC dressing change 08/07/16 19:15 08/12/16 19:14 Ondansetron HCl (Zofran) 4 mg Q6H PRN IVP Nausea & Vomiting 08/03/16 19:10 09/02/16 19:09 Pantoprazole (Protonix) 40 mg DAILY IVP 08/04/16 09:00 09/03/16 08:59 08/09/16 08:59 Piperacillin Sod/ Tazobactam Sod/ Dextrose (Zosyn/D5W) 110 ml @ 27.5 mls/hr EVERY 8 HOURS IVPB 08/09/16 14:30 08/14/16 14:29 08/09/16 15:59 Simethicone (Mylicon) 80 mg QIDPRN PRN NG GAS PAIN 08/03/16 19:00 09/02/16 18:59 08/09/16 15:59 Tamsulosin HCl 0.4 mg 0.4 mg BID ORAL 08/08/16 18:00 09/07/16 17:59 08/09/16 09:08 Temazepam 7.5 mg 7.5 mg HSPRN PRN ORAL Insomnia 08/03/16 20:00 08/10/16 19:59 08/08/16 22:22 MAIKEL ESPINOSA Aug 09, 2016 16:20
--- NOTE | 2016-08-09 16:30 | Infectious Diseases Prog Note ---
Assessment/Plan Problems: (1) Septic shock Assessment & Plan: improving , S/P four EXP LAP, due to anastomosis leak , S/ P revision x4 today , repeated blood culture so far is negative , UA is negative for infection and CXR showed atelactasis , will continue current antibiotics regimen , and monitor WBC. stool for C diff is negative , abdominal fluids culture showed no growth. (2) SBO (small bowel obstruction) Assessment & Plan: S/P EX LAP X 4 , has ileus post OP, now with persistent abdominal pain, continue IVF, and pain management , general surgery is following (3) Abdominal pain Assessment & Plan: due to the above, continue pain management, surgery is following (4) MIGNON (acute kidney injury) Assessment & Plan: due to sepsis and hypotension, continue IVF, titrate to keep SBP >100, renal is following (5) Ileus Assessment & Plan: improving, due to repeated EXP LAP, continue IVF, encourage walking , surgery is following Subjective Constitutional: Denies: anorexia, chills, drenching sweats, fatigue, fever, no symptoms, other HEENT: Denies: congestion, coryza, dysphagia, hearing change, no symptoms, other, visual change Respiratory: Denies: dry cough, no symptoms, other, productive cough, shortness of breath Cardiovascular: Denies: chest pain, dyspnea on exertion, no symptoms, other, palpitations Gastrointestinal/Abdominal: Denies: bloating, blood in stool, constipation, diarrhea, nausea, no symptoms, other, vomiting Genitourinary: Denies: dysuria, frequency, hematuria, no symptoms, nocturia, other Neurologic: Denies: confusion, headache, no symptoms, numbness, other, weakness Psychiatric: Denies: anxiety, depression, no symptoms, other Skin: Denies: no symptoms, other, rash, ulcer Endocrine: Denies: feels cold, feels warm, no symptoms, other Allergies: Coded Allergies: No Known Allergies (Unverified , 07/26/16) Subjective he had another surgery today, with anastomisis of small bowl to colon, was doing ok, no bowel movement today , no fever or chills, no cough or SOB. Objective Vital Signs Last 24 Hour Vital Signs Date Time Temp Pulse Resp B/P Pulse Ox O2 Delivery O2 Flow Rate FiO2 08/09/16 12:17 98.8 08/09/16 12:00 98.8 70 20 156/91 97 Room Air 08/09/16 09:09 81 153/90 08/09/16 08:00 98.2 81 20 153/90 98 Room Air 08/09/16 08:00 87 16 Room Air 21 08/09/16 04:00 98.2 76 20 149/69 98 Room Air 08/09/16 00:48 97.9 74 20 141/83 98 Room Air 08/08/16 22:01 89 145/88 08/08/16 20:00 97.0 89 18 145/88 99 Room Air 08/08/16 19:10 82 18 Room Air 21 08/08/16 18:38 98.2 08/08/16 16:32 98.2 76 20 157/90 99 Room Air General Appearance: WD/WN, no acute distress HEENT: normocephalic, atraumatic, anicteric, mucous membranes moist Respiratory/Chest: chest wall non-tender, lungs clear, normal breath sounds, no respiratory distress, no accessory muscle use Cardiovascular: normal peripheral pulses, normal rate, regular rhythm, no gallop/murmur, no JVD Abdomen: normal bowel sounds, soft, non tender, no organomegaly, non distended , no mass Extremities: no cyanosis, no clubbing Skin: no rash, no lesions, no ulcers Laboratory Tests Test 08/09/16 05:50 White Blood Count 12.3 K/UL (4.8-10.8) H Red Blood Count 2.52 M/UL (4.70-6.10) L Hemoglobin 7.5 G/DL (14.2-18.0) L Hematocrit 23.1 % (42.0-52.0) L Mean Corpuscular Volume 92 FL (80-99) Mean Corpuscular Hemoglobin 29.6 PG (27.0-31.0) Mean Corpuscular Hemoglobin Concent 32.3 G/DL (32.0-36.0) Red Cell Distribution Width 12.7 % (11.6-14.8) Platelet Count 314 K/UL (150-450) Mean Platelet Volume 6.3 FL (6.5-10.1) L Neutrophils (%) (Auto) % (45.0-75.0) Lymphocytes (%) (Auto) % (20.0-45.0) Monocytes (%) (Auto) % (1.0-10.0) Eosinophils (%) (Auto) % (0.0-3.0) Basophils (%) (Auto) % (0.0-2.0) Differential Total Cells Counted 100 Neutrophils % (Manual) 82 % (45-75) H Lymphocytes % (Manual) 8 % (20-45) L Monocytes % (Manual) 6 % (1-10) Eosinophils % (Manual) 4 % (0-3) H Basophils % (Manual) 0 % (0-2) Band Neutrophils 0 % (0-8) Platelet Estimate Adequate Platelet Morphology Normal Hypochromasia 1+ Sodium Level 144 mEQ/L (135-145) Potassium Level 4.2 mEQ/L (3.4-4.9) Chloride Level 105 mEQ/L (98-107) Carbon Dioxide Level 25 mEQ/L (20-30) Anion Gap 14 (5-15) Blood Urea Nitrogen 30 mg/dL (7-23) H Creatinine 2.6 mg/dL (0.7-1.2) H Estimat Glomerular Filtration Rate 24.9 mL/min (>60) Glucose Level 195 mg/dL (74-106) H Calcium Level 8.0 mg/dL (8.6-10.2) L Phosphorus Level 4.2 mg/dL (2.5-4.8) Magnesium Level 1.8 mg/dL (1.7-2.5) Total Bilirubin 1.1 mg/dL (0.0-1.2) Direct Bilirubin 0.7 mg/dL (0.1-0.3) H Aspartate Amino Transf (AST/SGOT) 31 U/L (5-40) Alanine Aminotransferase (ALT/SGPT) 41 U/L (3-41) Alkaline Phosphatase 180 U/L (40-129) H C-Reactive Protein, Quantitative 4.4 mg/dL (< 0.5) H Pro-B-Type Natriuretic Peptide 1927 pg/mL (0-125) H Total Protein 6.1 g/dL (6.6-8.7) L Albumin 2.6 g/dL (3.5-5.2) L Globulin 3.5 g/dL Albumin/Globulin Ratio 0.7 (1.0-2.7) L Amylase Level 145 U/L (10-110) H Lipase 194 U/L (< 60) H Current Medications Medications (Trade) Dose Ordered Sig/Arti Route PRN Reason Start Time Stop Time Status Last Admin Dose Admin Acetaminophen (Tylenol) 650 mg Q4H PRN RECTAL FEVER>100.5 08/03/16 19:00 09/02/16 18:59 Dextrose (D10w) 1,000 ml @ 0 mls/hr Q24H PRN IV PN interrupted or unavailable 08/03/16 21:00 09/02/16 20:59 Dextrose (Dextrose 50%) STAT PRN IV Hypoglycemia 08/03/16 19:00 09/02/16 18:59 Enoxaparin Sodium (Lovenox) 30 mg DAILY SUBQ 08/04/16 09:00 09/03/16 08:59 08/09/16 09:15 Fat Emulsion Intravenous 240 ml/Amino Acids/ Electrolytes/ Dextrose 2,232 ml @ 93 mls/hr Q24H IV 08/04/16 21:00 09/03/16 20:59 08/08/16 21:53 Fluconazole/ Sodium Chloride (Diflucan 200mg/ 100ml Premix) 100 ml @ 100 mls/hr Q24H IV 08/07/16 09:00 08/14/16 08:59 08/09/16 08:59 Hydromorphone HCl (Dilaudid) 0.5 mg Q3H PRN IVP Pain Score 1-3 08/03/16 19:30 08/10/16 19:29 08/08/16 17:46 Hydromorphone HCl (Dilaudid) 1 mg Q3H PRN IVP pain score 4-6 08/04/16 20:30 08/11/16 20:29 08/09/16 15:59 Hydromorphone HCl (Dilaudid) 2 mg Q3H PRN IVP pain score 7-10 08/04/16 20:30 08/11/16 20:29 08/09/16 06:08 Insulin Aspart (NovoLOG) No Dose Q6HR SUBQ 08/04/16 00:00 09/03/16 00:00 08/09/16 11:57 Linezolid 300 ml @ 300 mls/hr Q12HR@0600,1800 IVPB 08/09/16 18:00 08/16/16 17:59 Metoprolol Tartrate (Lopressor) 50 mg Q12HR ORAL 08/08/16 21:00 09/07/16 20:59 08/09/16 09:09 Mupirocin (Bactroban Oint) 1 applic Q8H PRN TOPIC dressing change 08/07/16 19:15 08/12/16 19:14 Ondansetron HCl (Zofran) 4 mg Q6H PRN IVP Nausea & Vomiting 08/03/16 19:10 09/02/16 19:09 Pantoprazole (Protonix) 40 mg DAILY IVP 08/04/16 09:00 09/03/16 08:59 08/09/16 08:59 Piperacillin Sod/ Tazobactam Sod/ Dextrose (Zosyn/D5W) 110 ml @ 27.5 mls/hr EVERY 8 HOURS IVPB 08/09/16 14:30 08/14/16 14:29 08/09/16 15:59 Simethicone (Mylicon) 80 mg QIDPRN PRN NG GAS PAIN 08/03/16 19:00 09/02/16 18:59 08/09/16 15:59 Tamsulosin HCl 0.4 mg 0.4 mg BID ORAL 08/08/16 18:00 09/07/16 17:59 08/09/16 09:08 Temazepam 7.5 mg 7.5 mg HSPRN PRN ORAL Insomnia 08/03/16 20:00 08/10/16 19:59 08/08/16 22:22 Piyush Harris M.D. Aug 09, 2016 16:30
[2016-08-09 16:37] VITALS: BP 160/102
--- NOTE | 2016-08-09 17:26 | Cardiac Electrophysiology PN ---
Assessment/Plan Assessment/Plan 1. Elevated troponin due to demand ischemia/renal failure. ECG non ischemic. Troponin 1.3 to 0.33. Echo NL EF.Continue Lopressor 25 bid.No chest pain. 2. S/P Septic shock due to small bowel obstruction and gangrene. Off pressors.On iv fluid and antibiotics. WBC down to 12 today 3. HTN. Continue Lopressor 25 bid. Avoid ACEI or ARB for renal failure 4. Small bowel obstruction status post laparotomy and small bowel resection. S/ P 3rd surgery on 08/02/16. Follow up Dr [place]ri[place]. 5. Respiratory failure. Extubated 6. Renal failure, creatinine 4.4. Today 2.6 DW son, and RN Subjective Subjective Clear liquid diet and TPN. at bedside. 2 Abdominal drains still in place. No chest pain or SOB. Objective Last 24 Hour Vital Signs Date Time Temp Pulse Resp B/P Pulse Ox O2 Delivery O2 Flow Rate FiO2 08/09/16 16:37 98.1 77 18 160/102 99 Room Air 08/09/16 12:17 98.8 08/09/16 12:00 98.8 70 20 156/91 97 Room Air 08/09/16 09:09 81 153/90 08/09/16 08:00 98.2 81 20 153/90 98 Room Air 08/09/16 08:00 87 16 Room Air 08/09/16 04:00 98.2 76 20 149/69 98 Room Air 08/09/16 00:48 97.9 74 20 141/83 98 Room Air 08/08/16 22:01 89 145/88 08/08/16 20:00 97.0 89 18 145/88 99 Room Air 08/08/16 19:10 82 18 Room Air 21 08/08/16 18:38 98.2 Intake and Output 08/08/16 08/09/16 19:00 07:00 Intake Total 1904 ml 1318 ml Output Total 1590 ml 2419 ml Balance 314 ml -1101 ml Intake Oral 240 ml 240 ml IV Total 1664 ml 1078 ml Output Urine Total 1550 ml 2400 ml Drainage Total 40 ml 19 ml # Bowel Movements 1 2 Laboratory Tests Test 08/09/16 05:50 White Blood Count 12.3 K/UL (4.8-10.8) H Red Blood Count 2.52 M/UL (4.70-6.10) L Hemoglobin 7.5 G/DL (14.2-18.0) L Hematocrit 23.1 % (42.0-52.0) L Mean Corpuscular Volume 92 FL (80-99) Mean Corpuscular Hemoglobin 29.6 PG (27.0-31.0) Mean Corpuscular Hemoglobin Concent 32.3 G/DL (32.0-36.0) Red Cell Distribution Width 12.7 % (11.6-14.8) Platelet Count 314 K/UL (150-450) Mean Platelet Volume 6.3 FL (6.5-10.1) L Neutrophils (%) (Auto) % (45.0-75.0) Lymphocytes (%) (Auto) % (20.0-45.0) Monocytes (%) (Auto) % (1.0-10.0) Eosinophils (%) (Auto) % (0.0-3.0) Basophils (%) (Auto) % (0.0-2.0) Differential Total Cells Counted 100 Neutrophils % (Manual) 82 % (45-75) H Lymphocytes % (Manual) 8 % (20-45) L Monocytes % (Manual) 6 % (1-10) Eosinophils % (Manual) 4 % (0-3) H Basophils % (Manual) 0 % (0-2) Band Neutrophils 0 % (0-8) Platelet Estimate Adequate Platelet Morphology Normal Hypochromasia 1+ Sodium Level 144 mEQ/L (135-145) Potassium Level 4.2 mEQ/L (3.4-4.9) Chloride Level 105 mEQ/L (98-107) Carbon Dioxide Level 25 mEQ/L (20-30) Anion Gap 14 (5-15) Blood Urea Nitrogen 30 mg/dL (7-23) H Creatinine 2.6 mg/dL (0.7-1.2) H Estimat Glomerular Filtration Rate 24.9 mL/min (>60) Glucose Level 195 mg/dL (74-106) H Calcium Level 8.0 mg/dL (8.6-10.2) L Phosphorus Level 4.2 mg/dL (2.5-4.8) Magnesium Level 1.8 mg/dL (1.7-2.5) Total Bilirubin 1.1 mg/dL (0.0-1.2) Direct Bilirubin 0.7 mg/dL (0.1-0.3) H Aspartate Amino Transf (AST/SGOT) 31 U/L (5-40) Alanine Aminotransferase (ALT/SGPT) 41 U/L (3-41) Alkaline Phosphatase 180 U/L (40-129) H C-Reactive Protein, Quantitative 4.4 mg/dL (< 0.5) H Pro-B-Type Natriuretic Peptide 1927 pg/mL (0-125) H Total Protein 6.1 g/dL (6.6-8.7) L Albumin 2.6 g/dL (3.5-5.2) L Globulin 3.5 g/dL Albumin/Globulin Ratio 0.7 (1.0-2.7) L Amylase Level 145 U/L (10-110) H Lipase 194 U/L (< 60) H Objective HEAD AND NECK: No JVD. LUNGS: Clear CARDIOVASCULAR: Nl S1 and S2 with no gallop or murmur. ABDOMEN: Post median laparotomy. DAKOTA drains still draining. EXTREMITIES: No pitting edema. HONEY DUKE Aug 09, 2016 17:26
[2016-08-09 20:00] VITALS: BP 164/95
[2016-08-09] MEDS: Fat Emulsion Iv 20% 240 ML in Tpn 1,992 ML IV SCH (21:21)
--- NOTE | 2016-08-09 23:33 | General Progress Note ---
Assessment/Plan Assessment/Plan Assessment - SBO / gangrene - resected - septic shock - recovered - ATN - improving - abnormal LFT - ? shocked liver, improved - s/p ex lap for anastomotic leak - Leukocytosis - improving - anemia, due to multiple surgeries and blood draws - mild elevated amylase/lipase, likely due to surgery Recommendations po diet per surgery ? transfuse PRBC - defer to heme-onc TPN abx PPI follow labs and exam surgical f/u OOB Subjective Allergies: Coded Allergies: No Known Allergies (Unverified , 07/26/16) Subjective patient seen earlier today on po clears (+) BM, loose lower H&H noted no Melena or BRBPR Objective Last 24 Hour Vital Signs Date Time Temp Pulse Resp B/P Pulse Ox O2 Delivery O2 Flow Rate FiO2 08/09/16 21:21 87 164/95 08/09/16 20:00 97.9 87 19 164/95 99 Room Air 08/09/16 18:54 91 18 Room Air 08/09/16 16:37 98.1 77 18 160/102 99 Room Air 08/09/16 12:17 98.8 08/09/16 12:00 98.8 70 20 156/91 97 Room Air 08/09/16 09:09 81 153/90 08/09/16 08:00 98.2 81 20 153/90 98 Room Air 08/09/16 08:00 87 16 Room Air 08/09/16 04:00 98.2 76 20 149/69 98 Room Air 08/09/16 00:48 97.9 74 20 141/83 98 Room Air Intake and Output 08/08/16 08/09/16 19:00 07:00 Intake Total 1904 ml 1318 ml Output Total 1590 ml 2419 ml Balance 314 ml -1101 ml Intake Oral 240 ml 240 ml IV Total 1664 ml 1078 ml Output Urine Total 1550 ml 2400 ml Drainage Total 40 ml 19 ml # Bowel Movements 1 2 Laboratory Tests 08/09/16 05:50: White Blood Count 12.3H, Red Blood Count 2.52L, Hemoglobin 7.5L, Hematocrit 23.1L, Mean Corpuscular Volume 92, Mean Corpuscular Hemoglobin 29.6, Mean Corpuscular Hemoglobin Concent 32.3, Red Cell Distribution Width 12.7, Platelet Count 314, Mean Platelet Volume 6.3L, Neutrophils (%) (Auto) , Lymphocytes (%) ( Auto) , Monocytes (%) (Auto) , Eosinophils (%) (Auto) , Basophils (%) (Auto) , Differential Total Cells Counted 100, Neutrophils % (Manual) 82H, Lymphocytes % (Manual) 8L, Monocytes % (Manual) 6, Eosinophils % (Manual) 4H, Basophils % ( Manual) 0, Band Neutrophils 0, Platelet Estimate Adequate, Platelet Morphology Normal, Hypochromasia 1+, Sodium Level 144, Potassium Level 4.2, Chloride Level 105, Carbon Dioxide Level 25, Anion Gap 14, Blood Urea Nitrogen 30H, Creatinine 2.6H, Estimat Glomerular Filtration Rate 24.9, Glucose Level 195H, Calcium Level 8.0L, Phosphorus Level 4.2, Magnesium Level 1.8, Total Bilirubin 1.1, Direct Bilirubin 0.7H, Aspartate Amino Transf (AST/SGOT) 31, Alanine Aminotransferase (ALT/SGPT) 41, Alkaline Phosphatase 180H, C-Reactive Protein, Quantitative 4.4H, Pro-B-Type Natriuretic Peptide 1927H, Total Protein 6.1L, Albumin 2.6L, Globulin 3.5, Albumin/Globulin Ratio 0.7L, Amylase Level 145H, Lipase 194H Objective WDWN man NCAT supple CTA RR abd less distended, (+)large abd wound, dressing dry, (+) DAKOTA trace edema ALVAREZ MARTINEZ Aug 09, 2016 23:33
[2016-08-10] VITALS: BP 148/86
[2016-08-10] MEDS: Zoysn 3.37gm in D5W 110ml IVPB SCH ×2 (02:17→06:40)
[2016-08-10 04:00] VITALS: BP 155/95
[2016-08-10] MEDS: NovoLOG Insulin Flexpen SUBQ SCH ×4 (05:09→17:58)
[2016-08-10 08:00] VITALS: BP 154/93
[2016-08-10] MEDS: Fluconazole 200mg/100ml (Pre-Mix) IV SCH (08:32)
[2016-08-10] MEDS: Metoprolol 50mg tab ORAL SCH ×2 (08:33→21:43)
[2016-08-10] MEDS: Tamsulosin 0.4mg cap ORAL SCH ×2 (08:33→17:56)
[2016-08-10] MEDS: Pantoprazole Inj IVP SCH (08:33)
[2016-08-10] MEDS: Enoxaparin 30mg Inj SUBQ SCH (08:40)
--- NOTE | 2016-08-10 11:30 | General Progress Note ---
Assessment/Plan Status: stable Status Narrative Cr 2.6 no change Assessment/Plan status: Septic Shock leading to acute renal failure- Cr peaked 4.8 now down to 2.6 Abdominal Surgery 07/26/16 then again 05/27 and revision 08/02 Plan; Cr 2.6 unchanged- no labs today increase flomax- increase lopressor on TPN post op care- Antibiotics- Protonix IV monitor renal parameters- per GI / Surgeon Favor transfusion Subjective ROS Limited/Unobtainable: No Constitutional: Reports: malaise, other - ambulating, weakness Allergies: Coded Allergies: No Known Allergies (Unverified , 07/26/16) Objective Last 24 Hour Vital Signs Date Time Temp Pulse Resp B/P Pulse Ox O2 Delivery O2 Flow Rate FiO2 08/10/16 08:33 72 154/93 08/10/16 08:15 98.1 08/10/16 08:00 98.1 72 20 154/93 98 Room Air 08/10/16 07:59 74 16 Room Air 08/10/16 04:00 97.9 75 18 155/95 99 Room Air 08/10/16 00:00 99.1 78 18 148/86 97 Room Air 08/09/16 21:21 87 164/95 08/09/16 20:00 97.9 87 19 164/95 99 Room Air 08/09/16 18:54 91 18 Room Air 21 08/09/16 16:37 98.1 77 18 160/102 99 Room Air 08/09/16 12:17 98.8 08/09/16 12:00 98.8 70 20 156/91 97 Room Air Intake and Output 08/09/16 08/10/16 19:00 07:00 Intake Total 1285 ml 656.0 ml Output Total 1238 ml 2406 ml Balance 47 ml -1750.0 ml Intake Oral 720 ml 360 ml IV Total 565 ml 296.0 ml Output Urine Total 1225 ml 2400 ml Drainage Total 13 ml 6 ml # Bowel Movements 1 General Appearance: lethargic Cardiovascular: regular rhythm Respiratory/Chest: decreased breath sounds Abdomen: distended Objective no other changes in PE REBECCA SCHULTE Aug 10, 2016 11:30
--- NOTE | 2016-08-10 11:44 | General Progress Note ---
Assessment/Plan Problem List: (1) Ileus ICD Codes: K56.7 - Ileus, unspecified SNOMED: 631134228 (2) Sepsis ICD Codes: A41.9 - Sepsis, unspecified organism SNOMED: 08316290 (3) Abdominal pain ICD Codes: R10.9 - Unspecified abdominal pain SNOMED: 93287176 (4) SBO (small bowel obstruction) ICD Codes: K56.69 - Other intestinal obstruction SNOMED: 171120280 (5) Abdominal gas pain ICD Codes: R14.1 - Gas pain SNOMED: 66418660 (6) Enteritis ICD Codes: K52.9 - Noninfective gastroenteritis and colitis, unspecified SNOMED: 13869436 Status: progressing Assessment/Plan s/p third explo lap s/p re anstamosis by dr zee sepsis check cultures afebrile reviewed chart and labs Subjective ROS Limited/Unobtainable: Yes Constitutional: Reports: no symptoms Allergies: Coded Allergies: No Known Allergies (Unverified , 07/26/16) Objective Last 24 Hour Vital Signs Date Time Temp Pulse Resp B/P Pulse Ox O2 Delivery O2 Flow Rate FiO2 08/10/16 08:33 72 154/93 08/10/16 08:15 98.1 08/10/16 08:00 98.1 72 20 154/93 98 Room Air 08/10/16 07:59 74 16 Room Air 08/10/16 04:00 97.9 75 18 155/95 99 Room Air 08/10/16 00:00 99.1 78 18 148/86 97 Room Air 08/09/16 21:21 87 164/95 08/09/16 20:00 97.9 87 19 164/95 99 Room Air 08/09/16 18:54 91 18 Room Air 21 08/09/16 16:37 98.1 77 18 160/102 99 Room Air 08/09/16 12:17 98.8 08/09/16 12:00 98.8 70 20 156/91 97 Room Air Intake and Output 08/09/16 08/10/16 19:00 07:00 Intake Total 1285 ml 656.0 ml Output Total 1238 ml 2406 ml Balance 47 ml -1750.0 ml Intake Oral 720 ml 360 ml IV Total 565 ml 296.0 ml Output Urine Total 1225 ml 2400 ml Drainage Total 13 ml 6 ml # Bowel Movements 1 Cardiovascular: normal rate Abdomen: tender Teo Love MD Aug 10, 2016 11:44
[2016-08-10 12:00] VITALS: BP 141/87
--- NOTE | 2016-08-10 12:40 | General Progress Note ---
Assessment/Plan Assessment/Plan ASSESSMENT: 1. Leukocytosis Likely 2/2 underlying sepsis vs reactive. Has improved 2. Small bowel obstruction. status post 3rd exploratory laparotomy; s/p resection gangrene 3. Anemia 2/2 chronic disease, does not require iron, potential slow bleed but unlikely 4. Sepsis, likely contributing to leukocytosis 5. Abdominal pain due to small bowel obstruction 6. Thrombocytopenia - which has improved RECOMMENDATIONS: 1. Monitor counts 2. Does not need require iron 3. Follow up on Surgery, GI, ID recs 5. Transfuse to goal hgb >7. 6. DVT ppx lovenox 7. GI ppx ppi 8. DW staff Thank you, Andrew Mendez MD Subjective Constitutional: Reports: no symptoms HEENT: Reports: no symptoms Cardiovascular: Reports: no symptoms Respiratory: Reports: no symptoms Gastrointestinal/Abdominal: Reports: no symptoms Genitourinary: Reports: no symptoms 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: Reports: no symptoms Endocrine: Reports: no symptoms Hematologic/Lymphatic: Reports: anemia Allergies: Coded Allergies: No Known Allergies (Unverified , 07/26/16) Subjective no bleeding reported, no hematochezia or hematemesis reported Objective Last 24 Hour Vital Signs Date Time Temp Pulse Resp B/P Pulse Ox O2 Delivery O2 Flow Rate FiO2 08/10/16 12:00 98.1 66 20 141/87 99 Room Air 08/10/16 08:33 72 154/93 08/10/16 08:15 98.1 08/10/16 08:00 98.1 72 20 154/93 98 Room Air 08/10/16 07:59 74 16 Room Air 08/10/16 04:00 97.9 75 18 155/95 99 Room Air 08/10/16 00:00 99.1 78 18 148/86 97 Room Air 08/09/16 21:21 87 164/95 08/09/16 20:00 97.9 87 19 164/95 99 Room Air 08/09/16 18:54 91 18 Room Air 21 08/09/16 16:37 98.1 77 18 160/102 99 Room Air Intake and Output 08/09/16 08/10/16 19:00 07:00 Intake Total 1285 ml 656.0 ml Output Total 1238 ml 2406 ml Balance 47 ml -1750.0 ml Intake Oral 720 ml 360 ml IV Total 565 ml 296.0 ml Output Urine Total 1225 ml 2400 ml Drainage Total 13 ml 6 ml # Bowel Movements 1 General Appearance: WD/WN EENT: normal ENT inspection Neck: normal inspection Cardiovascular: normal peripheral pulses Respiratory/Chest: lungs clear Abdomen: non tender Extremities: non-tender Edema: 1+ Leg (L), 1+ Leg (R) Edema: mild edema Neurologic: alert Skin: warm/dry Andrew Mendez Aug 10, 2016 12:40
--- NOTE | 2016-08-10 13:13 | Pulmonology Progress Note ---
Assessment/Plan Problems: (1) SBO (small bowel obstruction) (2) MIGNON (acute kidney injury) (3) Ileus (4) Enteritis (5) Non-ST elevation (NSTEMI) myocardial infarction Assessment/Plan on TPN no labs today improving wbc decreasing continue antibiotics check electrolytes advance diet dvt prophylaxis pt/ot Subjective ROS Limited/Unobtainable: No Interval Events: sitting up on the chair sipping on his Soda, no new complains Allergies: Coded Allergies: No Known Allergies (Unverified , 07/26/16) Objective Last 24 Hour Vital Signs Date Time Temp Pulse Resp B/P Pulse Ox O2 Delivery O2 Flow Rate FiO2 08/10/16 12:00 98.1 66 20 141/87 99 Room Air 08/10/16 08:33 72 154/93 08/10/16 08:15 98.1 08/10/16 08:00 98.1 72 20 154/93 98 Room Air 08/10/16 07:59 74 16 Room Air 08/10/16 04:00 97.9 75 18 155/95 99 Room Air 08/10/16 00:00 99.1 78 18 148/86 97 Room Air 08/09/16 21:21 87 164/95 08/09/16 20:00 97.9 87 19 164/95 99 Room Air 08/09/16 18:54 91 18 Room Air 21 08/09/16 16:37 98.1 77 18 160/102 99 Room Air Intake and Output 08/09/16 08/10/16 19:00 07:00 Intake Total 1285 ml 656.0 ml Output Total 1238 ml 2406 ml Balance 47 ml -1750.0 ml Intake Oral 720 ml 360 ml IV Total 565 ml 296.0 ml Output Urine Total 1225 ml 2400 ml Drainage Total 13 ml 6 ml # Bowel Movements 1 General Appearance: WD/WN HEENT: normocephalic, atraumatic Respiratory/Chest: chest wall non-tender, lungs clear Cardiovascular: normal peripheral pulses, normal rate Abdomen: normal bowel sounds, no organomegaly Genitourinary: normal external genitalia Extremities: no cyanosis Skin: no rash 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: wilton weaver II-XII grossly normal Lymphatic: no neck adenopathy Microbiology Date/Time Source Procedure Growth Status 08/09/16 08:30 Stool Clostridium difficile Toxin Assay - Final Complete 08/07/16 17:00 Stool Stool Culture - Preliminary NORMAL FECAL YOHANNES. Resulted Current Medications Medications (Trade) Dose Ordered Sig/Arti Route PRN Reason Start Time Stop Time Status Last Admin Dose Admin Acetaminophen (Tylenol) 650 mg Q4H PRN RECTAL FEVER>100.5 08/03/16 19:00 09/02/16 18:59 Dextrose (D10w) 1,000 ml @ 0 mls/hr Q24H PRN IV PN interrupted or unavailable 08/03/16 21:00 09/02/16 20:59 Dextrose (Dextrose 50%) STAT PRN IV Hypoglycemia 08/03/16 19:00 09/02/16 18:59 Enoxaparin Sodium (Lovenox) 30 mg DAILY SUBQ 08/04/16 09:00 09/03/16 08:59 08/10/16 08:40 Fat Emulsion Intravenous 240 ml/Amino Acids/ Electrolytes/ Dextrose 2,232 ml @ 93 mls/hr Q24H IV 08/04/16 21:00 09/03/16 20:59 08/09/16 21:21 Fluconazole/ Sodium Chloride (Diflucan 200mg/ 100ml Premix) 100 ml @ 100 mls/hr Q24H IV 08/07/16 09:00 08/14/16 08:59 08/10/16 08:32 Hydromorphone HCl (Dilaudid) 0.5 mg Q3H PRN IVP Pain Score 1-3 08/03/16 19:30 08/10/16 19:29 08/08/16 17:46 Hydromorphone HCl (Dilaudid) 1 mg Q3H PRN IVP pain score 4-6 08/04/16 20:30 08/11/16 20:29 08/09/16 15:59 Hydromorphone HCl (Dilaudid) 2 mg Q3H PRN IVP pain score 7-10 08/04/16 20:30 08/11/16 20:29 08/10/16 07:48 Insulin Aspart (NovoLOG) No Dose Q6HR SUBQ 08/04/16 00:00 09/03/16 00:00 08/10/16 11:59 Linezolid 300 ml @ 300 mls/hr Q12HR@0600,1800 IVPB 08/09/16 18:00 08/16/16 17:59 08/10/16 05:16 Metoprolol Tartrate (Lopressor) 50 mg Q12HR ORAL 08/08/16 21:00 09/07/16 20:59 08/10/16 08:33 Mupirocin (Bactroban Oint) 1 applic Q8H PRN TOPIC dressing change 08/07/16 19:15 08/12/16 19:14 Ondansetron HCl (Zofran) 4 mg Q6H PRN IVP Nausea & Vomiting 08/03/16 19:10 09/02/16 19:09 Pantoprazole (Protonix) 40 mg DAILY IVP 08/04/16 09:00 09/03/16 08:59 08/10/16 08:33 Piperacillin Sod/ Tazobactam Sod/ Dextrose (Zosyn/D5W) 110 ml @ 27.5 mls/hr EVERY 8 HOURS IVPB 08/10/16 14:00 08/17/16 13:59 Simethicone (Mylicon) 80 mg QIDPRN PRN NG GAS PAIN 08/03/16 19:00 09/02/16 18:59 08/09/16 15:59 Tamsulosin HCl 0.4 mg 0.4 mg BID ORAL 08/08/16 18:00 09/07/16 17:59 08/10/16 08:33 Temazepam 7.5 mg 7.5 mg HSPRN PRN ORAL Insomnia 08/03/16 20:00 08/10/16 19:59 08/08/16 22:22 MAIKEL ESPINOSA Aug 10, 2016 13:13
[2016-08-10] MEDS: Piperacillin/Tazobactam 3.375 GM in D5W 110 ML IVPB SCH ×2 (14:04→21:44)
[2016-08-10 16:00] VITALS: BP 151/95
--- NOTE | 2016-08-10 17:11 | General Surgery Progress Note ---
General Surgery-Progress Note Subjective Procedure Performed Exploratory Laparotomy and resection of anastomosis with anstomosis of small bowel to colon Symptoms: BM Objective Last 24 Hour Vital Signs Date Time Temp Pulse Resp B/P Pulse Ox O2 Delivery O2 Flow Rate FiO2 08/10/16 16:00 98.1 73 18 151/95 98 Room Air 08/10/16 12:00 98.1 66 20 141/87 99 Room Air 08/10/16 08:33 72 154/93 08/10/16 08:15 98.1 08/10/16 08:00 98.1 72 20 154/93 98 Room Air 08/10/16 07:59 74 16 Room Air 08/10/16 04:00 97.9 75 18 155/95 99 Room Air 08/10/16 00:00 99.1 78 18 148/86 97 Room Air 08/09/16 21:21 87 164/95 08/09/16 20:00 97.9 87 19 164/95 99 Room Air 08/09/16 18:54 91 18 Room Air 21 I&O Intake and Output 08/09/16 08/10/16 19:00 07:00 Intake Total 1285 ml 656.0 ml Output Total 1238 ml 2406 ml Balance 47 ml -1750.0 ml Intake Oral 720 ml 360 ml IV Total 565 ml 296.0 ml Output Urine Total 1225 ml 2400 ml Drainage Total 13 ml 6 ml # Bowel Movements 1 Dressing: dry Drains: curtis Respiratory: clear Abdomen: soft, flat, non-tender, present bowel sounds Extremities: no tenderness Assessment Post-op Diagnosis anastomosis leakage Plan Additional Comments advance diet EDWIN NOGUEIRA Aug 10, 2016 17:11
--- NOTE | 2016-08-10 17:27 | Infectious Diseases Prog Note ---
Assessment/Plan Problems: (1) Septic shock Assessment & Plan: improving , S/P four EXP LAP, due to anastomosis leak , S/ P revision x4 today , repeated blood culture so far is negative , UA is negative for infection and CXR showed atelactasis , will continue current antibiotics regimen , and monitor WBC. stool for C diff is negative , abdominal fluids culture showed no growth. (2) SBO (small bowel obstruction) Assessment & Plan: S/P EX LAP X 4 , has ileus post OP, now with persistent abdominal pain, continue IVF, and pain management , general surgery is following (3) Abdominal pain Assessment & Plan: due to the above, continue pain management, surgery is following (4) MIGNON (acute kidney injury) Assessment & Plan: due to sepsis and hypotension, continue IVF, titrate to keep SBP >100, renal is following (5) Ileus Assessment & Plan: improving, due to repeated EXP LAP, continue IVF, encourage walking , surgery is following Subjective Gastrointestinal/Abdominal: Reports: bloating, other - pressure Allergies: Coded Allergies: No Known Allergies (Unverified , 07/26/16) All Systems: reviewed and negative except above Subjective he had another surgery yesterday , with re-anastomosis of small bowl to colon, was doing ok, no bowel movement today , no fever or chills, no cough or SOB. Objective Vital Signs Last 24 Hour Vital Signs Date Time Temp Pulse Resp B/P Pulse Ox O2 Delivery O2 Flow Rate FiO2 08/10/16 16:00 98.1 73 18 151/95 98 Room Air 08/10/16 12:00 98.1 66 20 141/87 99 Room Air 08/10/16 08:33 72 154/93 08/10/16 08:15 98.1 08/10/16 08:00 98.1 72 20 154/93 98 Room Air 08/10/16 07:59 74 16 Room Air 08/10/16 04:00 97.9 75 18 155/95 99 Room Air 08/10/16 00:00 99.1 78 18 148/86 97 Room Air 08/09/16 21:21 87 164/95 08/09/16 20:00 97.9 87 19 164/95 99 Room Air 08/09/16 18:54 91 18 Room Air 21 General Appearance: WD/WN, no acute distress HEENT: normocephalic, atraumatic, anicteric Respiratory/Chest: chest wall non-tender, lungs clear, normal breath sounds, no respiratory distress, no accessory muscle use Cardiovascular: normal peripheral pulses, normal rate, regular rhythm, no gallop/murmur Abdomen: normal bowel sounds, no organomegaly, non distended, no mass, distended, tender Extremities: no cyanosis, no clubbing Skin: no rash, no lesions Microbiology Date/Time Source Procedure Growth Status 08/09/16 08:30 Stool Clostridium difficile Toxin Assay - Final Complete Current Medications Medications (Trade) Dose Ordered Sig/Arti Route PRN Reason Start Time Stop Time Status Last Admin Dose Admin Acetaminophen (Tylenol) 650 mg Q4H PRN RECTAL FEVER>100.5 08/03/16 19:00 09/02/16 18:59 Dextrose (D10w) 1,000 ml @ 0 mls/hr Q24H PRN IV PN interrupted or unavailable 08/03/16 21:00 09/02/16 20:59 Dextrose (Dextrose 50%) STAT PRN IV Hypoglycemia 08/03/16 19:00 09/02/16 18:59 Enoxaparin Sodium (Lovenox) 30 mg DAILY SUBQ 08/04/16 09:00 09/03/16 08:59 08/10/16 08:40 Fat Emulsion Intravenous 240 ml/Amino Acids/ Electrolytes/ Dextrose 2,232 ml @ 93 mls/hr Q24H IV 08/04/16 21:00 09/03/16 20:59 08/09/16 21:21 Fluconazole/ Sodium Chloride (Diflucan 200mg/ 100ml Premix) 100 ml @ 100 mls/hr Q24H IV 08/07/16 09:00 08/14/16 08:59 08/10/16 08:32 Hydromorphone HCl (Dilaudid) 0.5 mg Q3H PRN IVP Pain Score 1-3 08/03/16 19:30 08/10/16 19:29 08/08/16 17:46 Hydromorphone HCl (Dilaudid) 1 mg Q3H PRN IVP pain score 4-6 08/04/16 20:30 08/11/16 20:29 08/09/16 15:59 Hydromorphone HCl (Dilaudid) 2 mg Q3H PRN IVP pain score 7-10 08/04/16 20:30 08/11/16 20:29 08/10/16 16:49 Insulin Aspart (NovoLOG) No Dose Q6HR SUBQ 08/04/16 00:00 09/03/16 00:00 08/10/16 11:59 Linezolid 300 ml @ 300 mls/hr Q12HR@0600,1800 IVPB 08/09/16 18:00 08/16/16 17:59 08/10/16 05:16 Metoprolol Tartrate (Lopressor) 50 mg Q12HR ORAL 08/08/16 21:00 09/07/16 20:59 08/10/16 08:33 Mupirocin (Bactroban Oint) 1 applic Q8H PRN TOPIC dressing change 08/07/16 19:15 08/12/16 19:14 Ondansetron HCl (Zofran) 4 mg Q6H PRN IVP Nausea & Vomiting 08/03/16 19:10 09/02/16 19:09 Pantoprazole (Protonix) 40 mg DAILY IVP 08/04/16 09:00 09/03/16 08:59 08/10/16 08:33 Piperacillin Sod/ Tazobactam Sod/ Dextrose (Zosyn/D5W) 110 ml @ 27.5 mls/hr EVERY 8 HOURS IVPB 08/10/16 14:00 08/17/16 13:59 08/10/16 14:04 Simethicone (Mylicon) 80 mg QIDPRN PRN NG GAS PAIN 08/03/16 19:00 09/02/16 18:59 08/09/16 15:59 Tamsulosin HCl 0.4 mg 0.4 mg BID ORAL 08/08/16 18:00 09/07/16 17:59 08/10/16 08:33 Temazepam 7.5 mg 7.5 mg HSPRN PRN ORAL Insomnia 08/03/16 20:00 08/10/16 19:59 08/08/16 22:22 Piyush Harris M.D. Aug 10, 2016 17:27
--- NOTE | 2016-08-10 17:50 | Cardiac Electrophysiology PN ---
Assessment/Plan Assessment/Plan 1. Elevated troponin due to demand ischemia/renal failure. ECG non ischemic. Troponin 1.3 to 0.33. Echo NL EF.Continue Lopressor 25 bid.No chest pain. 2. S/P Septic shock due to small bowel obstruction and gangrene. Off pressors.On iv fluid and antibiotics. WBC down to 12 on 08/09/16 3. HTN. Continue Lopressor 25 bid. Avoid ACEI or ARB for renal failure 4. Small bowel obstruction status post laparotomy and small bowel resection. S/ P 3rd surgery on 08/02/16. Follow up Dr Murrieta. 5. Respiratory failure. Extubated 6. Renal failure, creatinine 2.6 on 08/09/16 DW RN Subjective Subjective No chest pain or SOB.Was evaluated by Dr Murrieta and diet was advanced. Objective Last 24 Hour Vital Signs Date Time Temp Pulse Resp B/P Pulse Ox O2 Delivery O2 Flow Rate FiO2 08/10/16 16:00 98.1 73 18 151/95 98 Room Air 08/10/16 12:00 98.1 66 20 141/87 99 Room Air 08/10/16 08:33 72 154/93 08/10/16 08:15 98.1 08/10/16 08:00 98.1 72 20 154/93 98 Room Air 08/10/16 07:59 74 16 Room Air 08/10/16 04:00 97.9 75 18 155/95 99 Room Air 08/10/16 00:00 99.1 78 18 148/86 97 Room Air 08/09/16 21:21 87 164/95 08/09/16 20:00 97.9 87 19 164/95 99 Room Air 08/09/16 18:54 91 18 Room Air 21 Intake and Output 08/09/16 08/10/16 19:00 07:00 Intake Total 1285 ml 656.0 ml Output Total 1238 ml 2406 ml Balance 47 ml -1750.0 ml Intake Oral 720 ml 360 ml IV Total 565 ml 296.0 ml Output Urine Total 1225 ml 2400 ml Drainage Total 13 ml 6 ml # Bowel Movements 1 Microbiology Date/Time Source Procedure Growth Status 08/09/16 08:30 Stool Clostridium difficile Toxin Assay - Final Complete Objective HEAD AND NECK: No JVD. LUNGS: Clear CARDIOVASCULAR: Nl S1 and S2 with no gallop or murmur. ABDOMEN: Post median laparotomy. DAKOTA drains still draining. EXTREMITIES: No pitting edema. HONEY DUKE Aug 10, 2016 17:50
[2016-08-10 18:47] LABS: BASOPHILS % (AUTO) 1.5 % (0.0-2.0); EOSINOPHILS % (AUTO) 3.1 % (0.0-3.0); LYMPHOCYTES % (AUTO) 7.4 % (20.0-45.0); MEAN CORPUSCULAR HEMOGLOBIN 29.7 PG (27.0-31.0); MEAN CORPUSCULAR HGB CONC 32.6 G/DL (32.0-36.0); MEAN CORPUSCULAR VOLUME 91 FL (80-99); MEAN PLATELET VOLUME 6.4 FL (6.5-10.1); PLATELET COUNT 274 K/UL (150-450); RED CELL DISTRIBUTION WIDTH 13.3 % (11.6-14.8); WHITE BLOOD COUNT 11.7 K/UL (4.8-10.8)
[2016-08-10 20:14] VITALS: BP 155/89
[2016-08-10] MEDS: Fat Emulsion Iv 20% 240 ML in Tpn 1,992 ML IV SCH (21:46)
--- NOTE | 2016-08-10 21:54 | General Progress Note ---
Assessment/Plan Assessment/Plan Assessment - SBO / gangrene - resected - septic shock - recovered - ATN - improving - abnormal LFT - ? shocked liver, improved - s/p ex lap for anastomotic leak - Leukocytosis - improving - anemia, due to multiple surgeries and blood draws - mild elevated amylase/lipase, likely due to surgery Recommendations po diet per surgery ? transfuse PRBC - defer to heme-onc TPN abx PPI follow labs and exam surgical f/u OOB Subjective Allergies: Coded Allergies: No Known Allergies (Unverified , 07/26/16) Subjective patient seen earlier today on po clears (+) BM, loose no Melena or BRBPR Objective Last 24 Hour Vital Signs Date Time Temp Pulse Resp B/P Pulse Ox O2 Delivery O2 Flow Rate FiO2 08/10/16 21:43 76 155/89 08/10/16 20:14 97.7 76 19 155/89 99 Room Air 08/10/16 16:00 98.1 73 18 151/95 98 Room Air 08/10/16 12:00 98.1 66 20 141/87 99 Room Air 08/10/16 08:33 72 154/93 08/10/16 08:15 98.1 08/10/16 08:00 98.1 72 20 154/93 98 Room Air 08/10/16 07:59 74 16 Room Air 08/10/16 04:00 97.9 75 18 155/95 99 Room Air 08/10/16 00:00 99.1 78 18 148/86 97 Room Air Intake and Output 08/09/16 08/10/16 19:00 07:00 Intake Total 1285 ml 656.0 ml Output Total 1238 ml 2406 ml Balance 47 ml -1750.0 ml Intake Oral 720 ml 360 ml IV Total 565 ml 296.0 ml Output Urine Total 1225 ml 2400 ml Drainage Total 13 ml 6 ml # Bowel Movements 1 Laboratory Tests 08/10/16 18:00: White Blood Count 11.7H, Red Blood Count 2.80L, Hemoglobin 8.3L, Hematocrit 25.5L, Mean Corpuscular Volume 91, Mean Corpuscular Hemoglobin 29.7, Mean Corpuscular Hemoglobin Concent 32.6, Red Cell Distribution Width 13.3, Platelet Count 274, Mean Platelet Volume 6.4L, Neutrophils (%) (Auto) 80.0H, Lymphocytes (%) (Auto) 7.4L, Monocytes (%) (Auto) 8.0, Eosinophils (%) (Auto) 3.1H, Basophils (%) (Auto) 1.5 Objective WDWN man NCAT supple CTA RR abd less distended, (+)large abd wound, dressing dry, (+) DAKOTA trace edema ALVAREZ MARTINEZ Aug 10, 2016 21:54
[2016-08-11] VITALS (7 sets, daily range): BP systolic 145–163; BP diastolic 88–96
[2016-08-11] MEDS: NovoLOG Insulin Flexpen SUBQ SCH ×4 (00:22→18:44)
[2016-08-11] MEDS: Piperacillin/Tazobactam 3.375 GM in D5W 110 ML IVPB SCH ×3 (05:32→22:05)
[2016-08-11 07:25] LABS: BASOPHILS % (AUTO) 1.2 % (0.0-2.0); EOSINOPHILS % (AUTO) 3.6 % (0.0-3.0); LYMPHOCYTES % (AUTO) 8.5 % (20.0-45.0); MEAN CORPUSCULAR HEMOGLOBIN 30.1 PG (27.0-31.0); MEAN CORPUSCULAR HGB CONC 33.3 G/DL (32.0-36.0); MEAN CORPUSCULAR VOLUME 90 FL (80-99); MEAN PLATELET VOLUME 7.1 FL (6.5-10.1); MONOCYTES % (AUTO) 8.2 % (1.0-10.0); NEUTROPHILS % (AUTO) 78.5 % (45.0-75.0); PLATELET COUNT 292 K/UL (150-450); RED BLOOD COUNT 2.77 M/UL (4.70-6.10); RED CELL DISTRIBUTION WIDTH 13.1 % (11.6-14.8); WHITE BLOOD COUNT 10.4 K/UL (4.8-10.8)
[2016-08-11 07:35] LABS: ALBUMIN/GLOBULIN RATIO 0.7 (1.0-2.7); CALCIUM 8.1 mg/dL (8.6-10.2); CREATININE 2.7 mg/dL (0.7-1.2); GLOMERULAR FILTRATION RATE 23.8 mL/min (>60); MAGNESIUM 1.8 mg/dL (1.7-2.5); PHOSPHORUS 3.6 mg/dL (2.5-4.8); POTASSIUM 4.1 mEQ/L (3.4-4.9); TOTAL PROTEIN 6.8 g/dL (6.6-8.7); URIC ACID 2.4 mg/dL (3.0-7.5)
[2016-08-11 08:29] LABS: BILIRUBIN,DIRECT 0.6 mg/dL (0.1-0.3)
[2016-08-11 08:36] LABS: AMYLASE 153 U/L (10-110); LIPASE 228 U/L (< 60)
--- NOTE | 2016-08-11 08:47 | General Progress Note ---
Assessment/Plan Assessment/Plan ASSESSMENT: 1. Leukocytosis Likely 2/2 underlying sepsis vs reactive. Has improved 2. Small bowel obstruction. status post 3rd exploratory laparotomy; s/p resection gangrene 3. Anemia 2/2 chronic disease, does not require iron, potential slow bleed but unlikely 4. Sepsis, likely contributing to leukocytosis 5. Abdominal pain due to small bowel obstruction 6. Thrombocytopenia - which has improved RECOMMENDATIONS: 1. Monitor counts 2. Does not need require iron 3. Follow up on Surgery, GI, ID recs 5. Transfuse to goal hgb >7 (hold transfusions today) 6. DVT ppx lovenox 7. GI ppx ppi 8. DW staff Thank you, Andrew Mendez MD Subjective Constitutional: Reports: no symptoms HEENT: Reports: no symptoms Cardiovascular: Reports: no symptoms Respiratory: Reports: no symptoms Gastrointestinal/Abdominal: Reports: poor fluid intake Genitourinary: Reports: no symptoms 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: Reports: no symptoms Endocrine: Reports: no symptoms Hematologic/Lymphatic: Reports: anemia Allergies: Coded Allergies: No Known Allergies (Unverified , 07/26/16) Subjective no bleeding reported, no hematochezia or hematemesis noted Objective Last 24 Hour Vital Signs Date Time Temp Pulse Resp B/P Pulse Ox O2 Delivery O2 Flow Rate FiO2 08/11/16 04:00 98.1 75 21 159/91 96 Room Air 08/11/16 00:28 98.4 71 21 149/92 96 Room Air 08/10/16 21:43 76 155/89 08/10/16 20:14 97.7 76 19 155/89 99 Room Air 08/10/16 19:00 76 16 Room Air 08/10/16 16:00 98.1 73 18 151/95 98 Room Air 08/10/16 12:00 98.1 66 20 141/87 99 Room Air Intake and Output 08/10/16 08/11/16 19:00 07:00 Intake Total 1668.0 ml 267.5 ml Output Total 1480 ml 2338 ml Balance 188.0 ml -2070.5 ml Intake Oral 600 ml 240 ml IV Total 1068.0 ml 27.5 ml Output Urine Total 1475 ml 2325 ml Drainage Total 5 ml 13 ml # Bowel Movements 1 Laboratory Tests 08/10/16 18:00: White Blood Count 11.7H, Red Blood Count 2.80L, Hemoglobin 8.3L, Hematocrit 25.5L, Mean Corpuscular Volume 91, Mean Corpuscular Hemoglobin 29.7, Mean Corpuscular Hemoglobin Concent 32.6, Red Cell Distribution Width 13.3, Platelet Count 274, Mean Platelet Volume 6.4L, Neutrophils (%) (Auto) 80.0H, Lymphocytes (%) (Auto) 7.4L, Monocytes (%) (Auto) 8.0, Eosinophils (%) (Auto) 3.1H, Basophils (%) (Auto) 1.5 08/11/16 04:30: White Blood Count 10.4, Red Blood Count 2.77L, Hemoglobin 8.3L, Hematocrit 25.0L , Mean Corpuscular Volume 90, Mean Corpuscular Hemoglobin 30.1, Mean Corpuscular Hemoglobin Concent 33.3, Red Cell Distribution Width 13.1, Platelet Count 292, Mean Platelet Volume 7.1, Neutrophils (%) (Auto) 78.5H, Lymphocytes ( %) (Auto) 8.5L, Monocytes (%) (Auto) 8.2, Eosinophils (%) (Auto) 3.6H, Basophils (%) (Auto) 1.2, Sodium Level 139, Potassium Level 4.1, Chloride Level 99, Carbon Dioxide Level 26, Anion Gap 14, Blood Urea Nitrogen 31H, Creatinine 2.7H, Estimat Glomerular Filtration Rate 23.8, Glucose Level 181H, Uric Acid 2.4L, Calcium Level 8.1L, Phosphorus Level 3.6, Magnesium Level 1.8, Total Bilirubin 1.1, Direct Bilirubin 0.6H, Gamma Glutamyl Transpeptidase 275H, Aspartate Amino Transf (AST/SGOT) 28, Alanine Aminotransferase (ALT/SGPT) 41, Alkaline Phosphatase 173H, C-Reactive Protein, Quantitative 3.0H, Pro-B-Type Natriuretic Peptide 1093H, Total Protein 6.8, Albumin 2.8L, Globulin 4.0, Albumin/Globulin Ratio 0.7L, Amylase Level 153H, Lipase 228H General Appearance: no apparent distress EENT: TMs normal Neck: supple Cardiovascular: normal rate Respiratory/Chest: normal breath sounds Abdomen: normal bowel sounds Extremities: non-tender Edema: 1+ Leg (L), 1+ Leg (R) Edema: mild edema Neurologic: alert Skin: warm/dry Andrew Mendez 27, 2017 08:47
[2016-08-11] MEDS: Fluconazole 200mg/100ml (Pre-Mix) IV SCH (09:47)
[2016-08-11] MEDS: Tamsulosin 0.4mg cap ORAL SCH ×2 (09:48→18:43)
[2016-08-11] MEDS: Metoprolol 50mg tab ORAL SCH ×2 (09:48→22:05)
[2016-08-11] MEDS: Pantoprazole Inj IVP SCH (09:49)
--- NOTE | 2016-08-11 09:52 | General Progress Note ---
Assessment/Plan Assessment/Plan (1) Small bowel obstruction (2) Intractable abdominal pain (3) Gangrene of the small bowel (4) S/p Exploratory Laparotomy resection of the small bowel with primary anastomosis Pt will be continued on Dilaudid. Pt was d/w Dr. Aguirre and he concurred. Subjective Date patient seen: Aug 11, 2016 Time patient seen: 08:15 Allergies: Coded Allergies: No Known Allergies (Unverified , 07/26/16) Subjective Constitutional: Reports: weakness, Denies: chills, diaphoresis, fever, malaise HEENT: Denies: blurred vision, double vision, ear discharge, ear pain, eye pain , mouth pain, mouth swelling, nose congestion, nose pain, tearing, throat pain, throat swelling Cardiovascular: Denies: chest pain, edema, irregular heart rate, lightheadedness, palpitations, syncope Respiratory: Denies: SOB at rest, SOB with exertion, cough, orthopnea, sputum, stridor, wheezing Gastrointestinal/Abdominal: Reports: abdomen distended, abdominal pain Denies: black stools, blood in stool, constipated, diarrhea, difficulty swallowing, poor appetite, poor fluid intake, rectal bleeding, tarry stools, vomiting Genitourinary: Denies: burning, discharge, flank pain, frequency, hematuria, incontinence, pain, urgency 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: Reports: weakness, Denies: anxiety, depressed, emotional problems, headache, numbness, paresthesia, pre-existing deficit, seizure, tingling, tremors Endocrine: Denies: excessive sweating, flushing, increased hunger, increased thirst, increased urine, intolerance to cold, intolerance to heat, unexplained weight gain, unexplained weight loss Hematologic/Lymphatic: Denies: anemia, easy bleeding, easy bruising Subjective Pts is sitting up in chair, son in law at bedside. He continues to c/o pain in the abdominal area and is using the Dilaudid as needed. Objective Last 24 Hour Vital Signs Date Time Temp Pulse Resp B/P Pulse Ox O2 Delivery O2 Flow Rate FiO2 08/11/16 04:00 98.1 75 21 159/91 96 Room Air 08/11/16 00:28 98.4 71 21 149/92 96 Room Air 08/10/16 21:43 76 155/89 08/10/16 20:14 97.7 76 19 155/89 99 Room Air 08/10/16 19:00 76 16 Room Air 08/10/16 16:00 98.1 73 18 151/95 98 Room Air 08/10/16 12:00 98.1 66 20 141/87 99 Room Air Intake and Output 08/10/16 08/11/16 19:00 07:00 Intake Total 1668.0 ml 267.5 ml Output Total 1480 ml 2338 ml Balance 188.0 ml -2070.5 ml Intake Oral 600 ml 240 ml IV Total 1068.0 ml 27.5 ml Output Urine Total 1475 ml 2325 ml Drainage Total 5 ml 13 ml # Bowel Movements 1 Laboratory Tests 08/10/16 18:00: White Blood Count 11.7H, Red Blood Count 2.80L, Hemoglobin 8.3L, Hematocrit 25.5L, Mean Corpuscular Volume 91, Mean Corpuscular Hemoglobin 29.7, Mean Corpuscular Hemoglobin Concent 32.6, Red Cell Distribution Width 13.3, Platelet Count 274, Mean Platelet Volume 6.4L, Neutrophils (%) (Auto) 80.0H, Lymphocytes (%) (Auto) 7.4L, Monocytes (%) (Auto) 8.0, Eosinophils (%) (Auto) 3.1H, Basophils (%) (Auto) 1.5 08/11/16 04:30: White Blood Count 10.4, Red Blood Count 2.77L, Hemoglobin 8.3L, Hematocrit 25.0L , Mean Corpuscular Volume 90, Mean Corpuscular Hemoglobin 30.1, Mean Corpuscular Hemoglobin Concent 33.3, Red Cell Distribution Width 13.1, Platelet Count 292, Mean Platelet Volume 7.1, Neutrophils (%) (Auto) 78.5H, Lymphocytes ( %) (Auto) 8.5L, Monocytes (%) (Auto) 8.2, Eosinophils (%) (Auto) 3.6H, Basophils (%) (Auto) 1.2, Sodium Level 139, Potassium Level 4.1, Chloride Level 99, Carbon Dioxide Level 26, Anion Gap 14, Blood Urea Nitrogen 31H, Creatinine 2.7H, Estimat Glomerular Filtration Rate 23.8, Glucose Level 181H, Uric Acid 2.4L, Calcium Level 8.1L, Phosphorus Level 3.6, Magnesium Level 1.8, Total Bilirubin 1.1, Direct Bilirubin 0.6H, Gamma Glutamyl Transpeptidase 275H, Aspartate Amino Transf (AST/SGOT) 28, Alanine Aminotransferase (ALT/SGPT) 41, Alkaline Phosphatase 173H, C-Reactive Protein, Quantitative 3.0H, Pro-B-Type Natriuretic Peptide 1093H, Total Protein 6.8, Albumin 2.8L, Globulin 4.0, Albumin/Globulin Ratio 0.7L, Amylase Level 153H, Lipase 228H Objective General Appearance: alert EENT: PERRL/EOMI, NG tube seen Neck: non-tender, supple Cardiovascular: normal rate, regular rhythm Respiratory/Chest: lungs clear Abdomen: other - tenderness to palpation bandages applied Extremities: normal inspection Neurologic: alert, responsive Skin: warm/dry SHA BOSE. P.Shaun Aug 11, 2016 09:52
[2016-08-11] MEDS: Enoxaparin 30mg Inj SUBQ SCH (09:59)
[2016-08-11] MEDS ORDERED: Hydromorphone 0.5mg/0.5ml inj IVP PRN (10:30)
[2016-08-11] MEDS: HYDROmorphone 1mg/ml Carpuject IVP PRN ×2 (11:02→22:08)
--- NOTE | 2016-08-11 12:41 | Pulmonology Progress Note ---
Assessment/Plan Problems: (1) SBO (small bowel obstruction) (2) MIGNON (acute kidney injury) (3) Ileus (4) Enteritis (5) Non-ST elevation (NSTEMI) myocardial infarction Assessment/Plan improving on Diflucan, Linezolid, zosyn wbc decreasing, normal now continue antibiotics check electrolytes advance diet dvt prophylaxis pt/ot Subjective ROS Limited/Unobtainable: No Interval Events: improving Constitutional: Reports: no symptoms HEENT: Repors: no symptoms Respiratory: Reports: no symptoms Allergies: Coded Allergies: No Known Allergies (Unverified , 07/26/16) Objective Last 24 Hour Vital Signs Date Time Temp Pulse Resp B/P Pulse Ox O2 Delivery O2 Flow Rate FiO2 08/11/16 12:00 97.0 68 19 149/96 99 Room Air 08/11/16 09:48 75 159/91 08/11/16 08:00 98.2 74 19 146/88 99 Room Air 08/11/16 04:00 98.1 75 21 159/91 96 Room Air 08/11/16 00:28 98.4 71 21 149/92 96 Room Air 08/10/16 21:43 76 155/89 08/10/16 20:14 97.7 76 19 155/89 99 Room Air 08/10/16 19:00 76 16 Room Air 08/10/16 16:00 98.1 73 18 151/95 98 Room Air Intake and Output 08/10/16 08/11/16 19:00 07:00 Intake Total 1668.0 ml 267.5 ml Output Total 1480 ml 2338 ml Balance 188.0 ml -2070.5 ml Intake Oral 600 ml 240 ml IV Total 1068.0 ml 27.5 ml Output Urine Total 1475 ml 2325 ml Drainage Total 5 ml 13 ml # Bowel Movements 1 General Appearance: WD/WN HEENT: normocephalic, atraumatic Respiratory/Chest: chest wall non-tender, lungs clear Cardiovascular: normal peripheral pulses, normal rate Abdomen: normal bowel sounds, soft, non tender Extremities: no cyanosis, no clubbing Skin: no lesions Microbiology Date/Time Source Procedure Growth Status 08/09/16 08:30 Stool Clostridium difficile Toxin Assay - Final Complete Laboratory Tests 08/10/16 18:00: White Blood Count 11.7H, Red Blood Count 2.80L, Hemoglobin 8.3L, Hematocrit 25.5L, Mean Corpuscular Volume 91, Mean Corpuscular Hemoglobin 29.7, Mean Corpuscular Hemoglobin Concent 32.6, Red Cell Distribution Width 13.3, Platelet Count 274, Mean Platelet Volume 6.4L, Neutrophils (%) (Auto) 80.0H, Lymphocytes (%) (Auto) 7.4L, Monocytes (%) (Auto) 8.0, Eosinophils (%) (Auto) 3.1H, Basophils (%) (Auto) 1.5 08/11/16 04:30: White Blood Count 10.4, Red Blood Count 2.77L, Hemoglobin 8.3L, Hematocrit 25.0L , Mean Corpuscular Volume 90, Mean Corpuscular Hemoglobin 30.1, Mean Corpuscular Hemoglobin Concent 33.3, Red Cell Distribution Width 13.1, Platelet Count 292, Mean Platelet Volume 7.1, Neutrophils (%) (Auto) 78.5H, Lymphocytes ( %) (Auto) 8.5L, Monocytes (%) (Auto) 8.2, Eosinophils (%) (Auto) 3.6H, Basophils (%) (Auto) 1.2, Sodium Level 139, Potassium Level 4.1, Chloride Level 99, Carbon Dioxide Level 26, Anion Gap 14, Blood Urea Nitrogen 31H, Creatinine 2.7H, Estimat Glomerular Filtration Rate 23.8, Glucose Level 181H, Uric Acid 2.4L, Calcium Level 8.1L, Phosphorus Level 3.6, Magnesium Level 1.8, Total Bilirubin 1.1, Direct Bilirubin 0.6H, Gamma Glutamyl Transpeptidase 275H, Aspartate Amino Transf (AST/SGOT) 28, Alanine Aminotransferase (ALT/SGPT) 41, Alkaline Phosphatase 173H, C-Reactive Protein, Quantitative 3.0H, Pro-B-Type Natriuretic Peptide 1093H, Total Protein 6.8, Albumin 2.8L, Globulin 4.0, Albumin/Globulin Ratio 0.7L, Amylase Level 153H, Lipase 228H Current Medications Medications (Trade) Dose Ordered Sig/Arti Route PRN Reason Start Time Stop Time Status Last Admin Dose Admin Acetaminophen (Tylenol) 650 mg Q4H PRN RECTAL FEVER>100.5 08/03/16 19:00 09/02/16 18:59 Dextrose (D10w) 1,000 ml @ 0 mls/hr Q24H PRN IV PN interrupted or unavailable 08/03/16 21:00 09/02/16 20:59 Dextrose (Dextrose 50%) STAT PRN IV Hypoglycemia 08/03/16 19:00 09/02/16 18:59 Enoxaparin Sodium (Lovenox) 30 mg DAILY SUBQ 08/04/16 09:00 09/03/16 08:59 08/11/16 09:59 Fat Emulsion Intravenous 240 ml/Amino Acids/ Electrolytes/ Dextrose 2,232 ml @ 93 mls/hr Q24H IV 08/04/16 21:00 09/03/16 20:59 08/10/16 21:46 Fluconazole/ Sodium Chloride (Diflucan 200mg/ 100ml Premix) 100 ml @ 100 mls/hr Q24H IV 08/07/16 09:00 08/14/16 08:59 08/11/16 09:47 Hydromorphone HCl (Dilaudid) 0.5 mg Q4H PRN IVP Mild Pain (Pain Scale 1-3) 08/11/16 10:30 08/18/16 10:29 Hydromorphone HCl (Dilaudid) 1 mg Q3H PRN IVP pain score 4-6 08/11/16 10:30 08/18/16 10:29 08/11/16 11:02 Hydromorphone HCl (Dilaudid) 2 mg Q3H PRN IVP pain score 7-10 08/11/16 10:30 08/18/16 10:29 Insulin Aspart (NovoLOG) No Dose Q6HR SUBQ 08/04/16 00:00 09/03/16 00:00 08/11/16 11:51 Linezolid 300 ml @ 300 mls/hr Q12HR@0600,1800 IVPB 08/09/16 18:00 08/16/16 17:59 08/11/16 05:31 Metoprolol Tartrate (Lopressor) 50 mg Q12HR ORAL 08/08/16 21:00 09/07/16 20:59 08/11/16 09:48 Mupirocin (Bactroban Oint) 1 applic Q8H PRN TOPIC dressing change 08/07/16 19:15 08/12/16 19:14 Ondansetron HCl (Zofran) 4 mg Q6H PRN IVP Nausea & Vomiting 08/03/16 19:10 09/02/16 19:09 Pantoprazole (Protonix) 40 mg DAILY IVP 08/04/16 09:00 09/03/16 08:59 08/11/16 09:49 Piperacillin Sod/ Tazobactam Sod/ Dextrose (Zosyn/D5W) 110 ml @ 27.5 mls/hr EVERY 8 HOURS IVPB 08/10/16 14:00 08/17/16 13:59 08/11/16 05:32 Simethicone 80 mg 80 mg QIDPRN PRN NG GAS PAIN 08/03/16 19:00 09/02/16 18:59 08/09/16 15:59 Tamsulosin HCl 0.4 mg 0.4 mg BID ORAL 08/08/16 18:00 09/07/16 17:59 08/11/16 09:48 MAIKEL ESPINOSA Aug 11, 2016 12:41
--- NOTE | 2016-08-11 13:01 | General Surgery Progress Note ---
General Surgery-Progress Note Subjective Procedure Performed Exploratory Laparotomy and resection of anastomosis with anstomosis of small bowel to colon Symptoms: BM Objective Last 24 Hour Vital Signs Date Time Temp Pulse Resp B/P Pulse Ox O2 Delivery O2 Flow Rate FiO2 08/11/16 12:00 97.0 68 19 149/96 99 Room Air 08/11/16 09:48 75 159/91 08/11/16 08:00 98.2 74 19 146/88 99 Room Air 08/11/16 04:00 98.1 75 21 159/91 96 Room Air 08/11/16 00:28 98.4 71 21 149/92 96 Room Air 08/10/16 21:43 76 155/89 08/10/16 20:14 97.7 76 19 155/89 99 Room Air 08/10/16 19:00 76 16 Room Air 08/10/16 16:00 98.1 73 18 151/95 98 Room Air I&O Intake and Output 08/10/16 08/11/16 19:00 07:00 Intake Total 1668.0 ml 267.5 ml Output Total 1480 ml 2338 ml Balance 188.0 ml -2070.5 ml Intake Oral 600 ml 240 ml IV Total 1068.0 ml 27.5 ml Output Urine Total 1475 ml 2325 ml Drainage Total 5 ml 13 ml # Bowel Movements 1 Wound: clean, intact Drains: curtis Respiratory: clear Abdomen: soft, flat, non-tender, present bowel sounds Extremities: no tenderness Laboratory Tests Test 08/10/16 18:00 08/11/16 04:30 White Blood Count 11.7 K/UL (4.8-10.8) H 10.4 K/UL (4.8-10.8) Red Blood Count 2.80 M/UL (4.70-6.10) L 2.77 M/UL (4.70-6.10) L Hemoglobin 8.3 G/DL (14.2-18.0) L 8.3 G/DL (14.2-18.0) L Hematocrit 25.5 % (42.0-52.0) L 25.0 % (42.0-52.0) L Mean Corpuscular Volume 91 FL (80-99) 90 FL (80-99) Mean Corpuscular Hemoglobin 29.7 PG (27.0-31.0) 30.1 PG (27.0-31.0) Mean Corpuscular Hemoglobin Concent 32.6 G/DL (32.0-36.0) 33.3 G/DL (32.0-36.0) Red Cell Distribution Width 13.3 % (11.6-14.8) 13.1 % (11.6-14.8) Platelet Count 274 K/UL (150-450) 292 K/UL (150-450) Mean Platelet Volume 6.4 FL (6.5-10.1) L 7.1 FL (6.5-10.1) Neutrophils (%) (Auto) 80.0 % (45.0-75.0) H 78.5 % (45.0-75.0) H Lymphocytes (%) (Auto) 7.4 % (20.0-45.0) L 8.5 % (20.0-45.0) L Monocytes (%) (Auto) 8.0 % (1.0-10.0) 8.2 % (1.0-10.0) Eosinophils (%) (Auto) 3.1 % (0.0-3.0) H 3.6 % (0.0-3.0) H Basophils (%) (Auto) 1.5 % (0.0-2.0) 1.2 % (0.0-2.0) Sodium Level 139 mEQ/L (135-145) Potassium Level 4.1 mEQ/L (3.4-4.9) Chloride Level 99 mEQ/L (98-107) Carbon Dioxide Level 26 mEQ/L (20-30) Anion Gap 14 (5-15) Blood Urea Nitrogen 31 mg/dL (7-23) H Creatinine 2.7 mg/dL (0.7-1.2) H Estimat Glomerular Filtration Rate 23.8 mL/min (>60) Glucose Level 181 mg/dL (74-106) H Uric Acid 2.4 mg/dL (3.0-7.5) L Calcium Level 8.1 mg/dL (8.6-10.2) L Phosphorus Level 3.6 mg/dL (2.5-4.8) Magnesium Level 1.8 mg/dL (1.7-2.5) Total Bilirubin 1.1 mg/dL (0.0-1.2) Direct Bilirubin 0.6 mg/dL (0.1-0.3) H Gamma Glutamyl Transpeptidase 275 U/L (8-61) H Aspartate Amino Transf (AST/SGOT) 28 U/L (5-40) Alanine Aminotransferase (ALT/SGPT) 41 U/L (3-41) Alkaline Phosphatase 173 U/L (40-129) H C-Reactive Protein, Quantitative 3.0 mg/dL (< 0.5) H Pro-B-Type Natriuretic Peptide 1093 pg/mL (0-125) H Total Protein 6.8 g/dL (6.6-8.7) Albumin 2.8 g/dL (3.5-5.2) L Globulin 4.0 g/dL Albumin/Globulin Ratio 0.7 (1.0-2.7) L Amylase Level 153 U/L (10-110) H Lipase 228 U/L (< 60) H Assessment Post-op Diagnosis anastomosis leakage Plan Additional Comments continue as before , one drain was removed EDWIN NOGUEIRA Aug 11, 2016 13:01
--- NOTE | 2016-08-11 13:45 | General Progress Note ---
Assessment/Plan Status: stable Status Narrative Cr almost unchanged Assessment/Plan status: Septic Shock leading to acute renal failure- Cr peaked 4.8 now down to 2.6 Abdominal Surgery 07/26/16 then again 05/27 and revision 08/02 Plan; Cr 2.7 increase flomax- increase lopressor on TPN post op care- Antibiotics- Protonix IV monitor renal parameters- per GI / Surgeon Favor transfusion Subjective ROS Limited/Unobtainable: No Constitutional: Reports: malaise Allergies: Coded Allergies: No Known Allergies (Unverified , 07/26/16) Objective Last 24 Hour Vital Signs Date Time Temp Pulse Resp B/P Pulse Ox O2 Delivery O2 Flow Rate FiO2 08/11/16 12:00 97.0 68 19 149/96 99 Room Air 08/11/16 09:48 75 159/91 08/11/16 08:00 98.2 74 19 146/88 99 Room Air 08/11/16 04:00 98.1 75 21 159/91 96 Room Air 08/11/16 00:28 98.4 71 21 149/92 96 Room Air 08/10/16 21:43 76 155/89 08/10/16 20:14 97.7 76 19 155/89 99 Room Air 08/10/16 19:00 76 16 Room Air 08/10/16 16:00 98.1 73 18 151/95 98 Room Air Intake and Output 08/10/16 08/11/16 19:00 07:00 Intake Total 1668.0 ml 267.5 ml Output Total 1480 ml 2338 ml Balance 188.0 ml -2070.5 ml Intake Oral 600 ml 240 ml IV Total 1068.0 ml 27.5 ml Output Urine Total 1475 ml 2325 ml Drainage Total 5 ml 13 ml # Bowel Movements 1 Laboratory Tests 08/10/16 18:00: White Blood Count 11.7H, Red Blood Count 2.80L, Hemoglobin 8.3L, Hematocrit 25.5L, Mean Corpuscular Volume 91, Mean Corpuscular Hemoglobin 29.7, Mean Corpuscular Hemoglobin Concent 32.6, Red Cell Distribution Width 13.3, Platelet Count 274, Mean Platelet Volume 6.4L, Neutrophils (%) (Auto) 80.0H, Lymphocytes (%) (Auto) 7.4L, Monocytes (%) (Auto) 8.0, Eosinophils (%) (Auto) 3.1H, Basophils (%) (Auto) 1.5 08/11/16 04:30: White Blood Count 10.4, Red Blood Count 2.77L, Hemoglobin 8.3L, Hematocrit 25.0L , Mean Corpuscular Volume 90, Mean Corpuscular Hemoglobin 30.1, Mean Corpuscular Hemoglobin Concent 33.3, Red Cell Distribution Width 13.1, Platelet Count 292, Mean Platelet Volume 7.1, Neutrophils (%) (Auto) 78.5H, Lymphocytes ( %) (Auto) 8.5L, Monocytes (%) (Auto) 8.2, Eosinophils (%) (Auto) 3.6H, Basophils (%) (Auto) 1.2, Sodium Level 139, Potassium Level 4.1, Chloride Level 99, Carbon Dioxide Level 26, Anion Gap 14, Blood Urea Nitrogen 31H, Creatinine 2.7H, Estimat Glomerular Filtration Rate 23.8, Glucose Level 181H, Uric Acid 2.4L, Calcium Level 8.1L, Phosphorus Level 3.6, Magnesium Level 1.8, Total Bilirubin 1.1, Direct Bilirubin 0.6H, Gamma Glutamyl Transpeptidase 275H, Aspartate Amino Transf (AST/SGOT) 28, Alanine Aminotransferase (ALT/SGPT) 41, Alkaline Phosphatase 173H, C-Reactive Protein, Quantitative 3.0H, Pro-B-Type Natriuretic Peptide 1093H, Total Protein 6.8, Albumin 2.8L, Globulin 4.0, Albumin/Globulin Ratio 0.7L, Amylase Level 153H, Lipase 228H General Appearance: no apparent distress Abdomen: distended Objective no other changes in PE REBECCA SCHULTE Aug 11, 2016 13:45
--- NOTE | 2016-08-11 14:05 | General Progress Note ---
Assessment/Plan Problem List: (1) Ileus ICD Codes: K56.7 - Ileus, unspecified SNOMED: 409692878 (2) Sepsis ICD Codes: A41.9 - Sepsis, unspecified organism SNOMED: 29197008 (3) Abdominal pain ICD Codes: R10.9 - Unspecified abdominal pain SNOMED: 65577107 (4) SBO (small bowel obstruction) ICD Codes: K56.69 - Other intestinal obstruction SNOMED: 996359576 (5) Abdominal gas pain ICD Codes: R14.1 - Gas pain SNOMED: 49766039 (6) Enteritis ICD Codes: K52.9 - Noninfective gastroenteritis and colitis, unspecified SNOMED: 27309608 Assessment/Plan re anastamosis sepsis abx per id afebrile clinically improving s/.p repair of sbo and bowel gangrene Subjective Gastrointestinal/Abdominal: Reports: abdominal pain Allergies: Coded Allergies: No Known Allergies (Unverified , 07/26/16) Objective Last 24 Hour Vital Signs Date Time Temp Pulse Resp B/P Pulse Ox O2 Delivery O2 Flow Rate FiO2 08/11/16 12:00 97.0 68 19 149/96 99 Room Air 08/11/16 09:48 75 159/91 08/11/16 08:00 98.2 74 19 146/88 99 Room Air 08/11/16 04:00 98.1 75 21 159/91 96 Room Air 08/11/16 00:28 98.4 71 21 149/92 96 Room Air 08/10/16 21:43 76 155/89 08/10/16 20:14 97.7 76 19 155/89 99 Room Air 08/10/16 19:00 76 16 Room Air 08/10/16 16:00 98.1 73 18 151/95 98 Room Air Intake and Output 08/10/16 08/11/16 19:00 07:00 Intake Total 1668.0 ml 267.5 ml Output Total 1480 ml 2338 ml Balance 188.0 ml -2070.5 ml Intake Oral 600 ml 240 ml IV Total 1068.0 ml 27.5 ml Output Urine Total 1475 ml 2325 ml Drainage Total 5 ml 13 ml # Bowel Movements 1 Laboratory Tests 08/10/16 18:00: White Blood Count 11.7H, Red Blood Count 2.80L, Hemoglobin 8.3L, Hematocrit 25.5L, Mean Corpuscular Volume 91, Mean Corpuscular Hemoglobin 29.7, Mean Corpuscular Hemoglobin Concent 32.6, Red Cell Distribution Width 13.3, Platelet Count 274, Mean Platelet Volume 6.4L, Neutrophils (%) (Auto) 80.0H, Lymphocytes (%) (Auto) 7.4L, Monocytes (%) (Auto) 8.0, Eosinophils (%) (Auto) 3.1H, Basophils (%) (Auto) 1.5 08/11/16 04:30: White Blood Count 10.4, Red Blood Count 2.77L, Hemoglobin 8.3L, Hematocrit 25.0L , Mean Corpuscular Volume 90, Mean Corpuscular Hemoglobin 30.1, Mean Corpuscular Hemoglobin Concent 33.3, Red Cell Distribution Width 13.1, Platelet Count 292, Mean Platelet Volume 7.1, Neutrophils (%) (Auto) 78.5H, Lymphocytes ( %) (Auto) 8.5L, Monocytes (%) (Auto) 8.2, Eosinophils (%) (Auto) 3.6H, Basophils (%) (Auto) 1.2, Sodium Level 139, Potassium Level 4.1, Chloride Level 99, Carbon Dioxide Level 26, Anion Gap 14, Blood Urea Nitrogen 31H, Creatinine 2.7H, Estimat Glomerular Filtration Rate 23.8, Glucose Level 181H, Uric Acid 2.4L, Calcium Level 8.1L, Phosphorus Level 3.6, Magnesium Level 1.8, Total Bilirubin 1.1, Direct Bilirubin 0.6H, Gamma Glutamyl Transpeptidase 275H, Aspartate Amino Transf (AST/SGOT) 28, Alanine Aminotransferase (ALT/SGPT) 41, Alkaline Phosphatase 173H, C-Reactive Protein, Quantitative 3.0H, Pro-B-Type Natriuretic Peptide 1093H, Total Protein 6.8, Albumin 2.8L, Globulin 4.0, Albumin/Globulin Ratio 0.7L, Amylase Level 153H, Lipase 228H Abdomen: tender Teo Love MD Aug 11, 2016 14:05
[2016-08-11] MEDS ORDERED: Fat Emulsion Iv 20% 240 ML in Tpn 1,992 ML IV SCH ×2 (14:30→21:00)
--- NOTE | 2016-08-11 18:24 | Cardiac Electrophysiology PN ---
Assessment/Plan Assessment/Plan 1. Elevated troponin due to demand ischemia/renal failure. ECG non- ischemic. Echo NL EF.Continue Lopressor 25 bid.No chest pain. 2. S/P Septic shock due to small bowel obstruction and gangrene. Off pressors.On iv fluid and antibiotics. WBC down to 10.4 today. 3. HTN. Continue Lopressor 25 bid. Avoid ACEI or ARB for renal failure 4. Small bowel obstruction status post laparotomy and small bowel resection. S/ P 3rd surgery on 08/02/16. Follow up Dr [place]. 5. Respiratory failure. Extubated 6. Renal failure, creatinine 2.7 today DW son Subjective Subjective No chest pain or SOB.Had BM yesterday and today.Son at bedside. Objective Last 24 Hour Vital Signs Date Time Temp Pulse Resp B/P Pulse Ox O2 Delivery O2 Flow Rate FiO2 08/11/16 16:00 99.0 95 18 145/91 99 Room Air 08/11/16 12:00 97.0 68 19 149/96 99 Room Air 08/11/16 09:48 75 159/91 08/11/16 08:00 98.2 74 19 146/88 99 Room Air 08/11/16 04:00 98.1 75 21 159/91 96 Room Air 08/11/16 00:28 98.4 71 21 149/92 96 Room Air 08/10/16 21:43 76 155/89 08/10/16 20:14 97.7 76 19 155/89 99 Room Air 08/10/16 19:00 76 16 Room Air Intake and Output 08/10/16 08/11/16 19:00 07:00 Intake Total 1668.0 ml 267.5 ml Output Total 1480 ml 2338 ml Balance 188.0 ml -2070.5 ml Intake Oral 600 ml 240 ml IV Total 1068.0 ml 27.5 ml Output Urine Total 1475 ml 2325 ml Drainage Total 5 ml 13 ml # Bowel Movements 1 Laboratory Tests Test 08/11/16 04:30 White Blood Count 10.4 K/UL (4.8-10.8) Red Blood Count 2.77 M/UL (4.70-6.10) L Hemoglobin 8.3 G/DL (14.2-18.0) L Hematocrit 25.0 % (42.0-52.0) L Mean Corpuscular Volume 90 FL (80-99) Mean Corpuscular Hemoglobin 30.1 PG (27.0-31.0) Mean Corpuscular Hemoglobin Concent 33.3 G/DL (32.0-36.0) Red Cell Distribution Width 13.1 % (11.6-14.8) Platelet Count 292 K/UL (150-450) Mean Platelet Volume 7.1 FL (6.5-10.1) Neutrophils (%) (Auto) 78.5 % (45.0-75.0) H Lymphocytes (%) (Auto) 8.5 % (20.0-45.0) L Monocytes (%) (Auto) 8.2 % (1.0-10.0) Eosinophils (%) (Auto) 3.6 % (0.0-3.0) H Basophils (%) (Auto) 1.2 % (0.0-2.0) Sodium Level 139 mEQ/L (135-145) Potassium Level 4.1 mEQ/L (3.4-4.9) Chloride Level 99 mEQ/L (98-107) Carbon Dioxide Level 26 mEQ/L (20-30) Anion Gap 14 (5-15) Blood Urea Nitrogen 31 mg/dL (7-23) H Creatinine 2.7 mg/dL (0.7-1.2) H Estimat Glomerular Filtration Rate 23.8 mL/min (>60) Glucose Level 181 mg/dL (74-106) H Uric Acid 2.4 mg/dL (3.0-7.5) L Calcium Level 8.1 mg/dL (8.6-10.2) L Phosphorus Level 3.6 mg/dL (2.5-4.8) Magnesium Level 1.8 mg/dL (1.7-2.5) Total Bilirubin 1.1 mg/dL (0.0-1.2) Direct Bilirubin 0.6 mg/dL (0.1-0.3) H Gamma Glutamyl Transpeptidase 275 U/L (8-61) H Aspartate Amino Transf (AST/SGOT) 28 U/L (5-40) Alanine Aminotransferase (ALT/SGPT) 41 U/L (3-41) Alkaline Phosphatase 173 U/L (40-129) H C-Reactive Protein, Quantitative 3.0 mg/dL (< 0.5) H Pro-B-Type Natriuretic Peptide 1093 pg/mL (0-125) H Total Protein 6.8 g/dL (6.6-8.7) Albumin 2.8 g/dL (3.5-5.2) L Globulin 4.0 g/dL Albumin/Globulin Ratio 0.7 (1.0-2.7) L Amylase Level 153 U/L (10-110) H Lipase 228 U/L (< 60) H Microbiology Date/Time Source Procedure Growth Status 08/09/16 08:30 Stool Clostridium difficile Toxin Assay - Final Complete Objective HEAD AND NECK: No JVD. LUNGS: Clear CARDIOVASCULAR: Nl S1 and S2 with no gallop or murmur. ABDOMEN: Post median laparotomy. EXTREMITIES: No pitting edema. HONEY DUKE Aug 11, 2016 18:24
--- NOTE | 2016-08-11 19:26 | Infectious Diseases Prog Note ---
Assessment/Plan Problems: (1) Septic shock Assessment & Plan: improving , S/P four EXP LAP, due to anastomosis leak , S/ P revision x4 , repeated blood culture so far is negative , UA is negative for infection and CXR showed atelactasis , will continue current antibiotics regimen , and monitor WBC. stool for C diff is negative , abdominal fluids culture showed no growth. (2) SBO (small bowel obstruction) Assessment & Plan: S/P EX LAP X 4 , has ileus post OP, now with persistent abdominal pain, continue IVF, and pain management , general surgery is following (3) Abdominal pain Assessment & Plan: improving, continue pain management, surgery is following (4) MIGNON (acute kidney injury) Assessment & Plan: improving, due to sepsis and hypotension, continue IVF, titrate to keep SBP >100, renal is following (5) Ileus Assessment & Plan: improving, due to repeated EXP LAP, continue IVF, encourage walking , surgery is following Subjective Gastrointestinal/Abdominal: Reports: bloating, diarrhea Allergies: Coded Allergies: No Known Allergies (Unverified , 07/26/16) All Systems: reviewed and negative except above Subjective he had four surgeries with re-anastomosis of small bowl to colon, doing ok, no bowel movement today , no fever or chills, no cough or SOB. Objective Vital Signs Last 24 Hour Vital Signs Date Time Temp Pulse Resp B/P Pulse Ox O2 Delivery O2 Flow Rate FiO2 08/11/16 16:00 99.0 95 18 145/91 99 Room Air 08/11/16 12:00 97.0 68 19 149/96 99 Room Air 08/11/16 09:48 75 159/91 08/11/16 08:00 98.2 74 19 146/88 99 Room Air 08/11/16 04:00 98.1 75 21 159/91 96 Room Air 08/11/16 00:28 98.4 71 21 149/92 96 Room Air 08/10/16 21:43 76 155/89 08/10/16 20:14 97.7 76 19 155/89 99 Room Air General Appearance: WD/WN, no acute distress HEENT: normocephalic, atraumatic, anicteric, mucous membranes moist, PERRL Respiratory/Chest: chest wall non-tender, lungs clear, normal breath sounds, no respiratory distress, no accessory muscle use Cardiovascular: normal peripheral pulses, normal rate, regular rhythm, no gallop/murmur, no JVD Abdomen: normal bowel sounds, no organomegaly, no mass, hyperactive bowel sounds, distended, tender Extremities: no cyanosis, no clubbing Skin: no rash, no lesions Microbiology Date/Time Source Procedure Growth Status 08/09/16 08:30 Stool Clostridium difficile Toxin Assay - Final Complete Laboratory Tests Test 08/11/16 04:30 White Blood Count 10.4 K/UL (4.8-10.8) Red Blood Count 2.77 M/UL (4.70-6.10) L Hemoglobin 8.3 G/DL (14.2-18.0) L Hematocrit 25.0 % (42.0-52.0) L Mean Corpuscular Volume 90 FL (80-99) Mean Corpuscular Hemoglobin 30.1 PG (27.0-31.0) Mean Corpuscular Hemoglobin Concent 33.3 G/DL (32.0-36.0) Red Cell Distribution Width 13.1 % (11.6-14.8) Platelet Count 292 K/UL (150-450) Mean Platelet Volume 7.1 FL (6.5-10.1) Neutrophils (%) (Auto) 78.5 % (45.0-75.0) H Lymphocytes (%) (Auto) 8.5 % (20.0-45.0) L Monocytes (%) (Auto) 8.2 % (1.0-10.0) Eosinophils (%) (Auto) 3.6 % (0.0-3.0) H Basophils (%) (Auto) 1.2 % (0.0-2.0) Sodium Level 139 mEQ/L (135-145) Potassium Level 4.1 mEQ/L (3.4-4.9) Chloride Level 99 mEQ/L (98-107) Carbon Dioxide Level 26 mEQ/L (20-30) Anion Gap 14 (5-15) Blood Urea Nitrogen 31 mg/dL (7-23) H Creatinine 2.7 mg/dL (0.7-1.2) H Estimat Glomerular Filtration Rate 23.8 mL/min (>60) Glucose Level 181 mg/dL (74-106) H Uric Acid 2.4 mg/dL (3.0-7.5) L Calcium Level 8.1 mg/dL (8.6-10.2) L Phosphorus Level 3.6 mg/dL (2.5-4.8) Magnesium Level 1.8 mg/dL (1.7-2.5) Total Bilirubin 1.1 mg/dL (0.0-1.2) Direct Bilirubin 0.6 mg/dL (0.1-0.3) H Gamma Glutamyl Transpeptidase 275 U/L (8-61) H Aspartate Amino Transf (AST/SGOT) 28 U/L (5-40) Alanine Aminotransferase (ALT/SGPT) 41 U/L (3-41) Alkaline Phosphatase 173 U/L (40-129) H C-Reactive Protein, Quantitative 3.0 mg/dL (< 0.5) H Pro-B-Type Natriuretic Peptide 1093 pg/mL (0-125) H Total Protein 6.8 g/dL (6.6-8.7) Albumin 2.8 g/dL (3.5-5.2) L Globulin 4.0 g/dL Albumin/Globulin Ratio 0.7 (1.0-2.7) L Amylase Level 153 U/L (10-110) H Lipase 228 U/L (< 60) H Current Medications Medications (Trade) Dose Ordered Sig/Arti Route PRN Reason Start Time Stop Time Status Last Admin Dose Admin Acetaminophen (Tylenol) 650 mg Q4H PRN RECTAL FEVER>100.5 08/03/16 19:00 09/02/16 18:59 Dextrose (D10w) 1,000 ml @ 0 mls/hr Q24H PRN IV PN interrupted or unavailable 08/03/16 21:00 09/02/16 20:59 Dextrose (Dextrose 50%) STAT PRN IV Hypoglycemia 08/03/16 19:00 09/02/16 18:59 Enoxaparin Sodium (Lovenox) 30 mg DAILY SUBQ 08/04/16 09:00 09/03/16 08:59 08/11/16 09:59 Fat Emulsion Intravenous 240 ml/Amino Acids/ Electrolytes/ Dextrose 2,232 ml @ 50 mls/hr Q24H IV 08/11/16 21:00 09/10/16 20:59 Fat Emulsion Intravenous/Amino Acids/ Electrolytes/ Dextrose (Intralipids/Tpn) 2,232 ml @ 50 mls/hr Q24H IV 08/11/16 14:30 08/11/16 20:59 08/11/16 14:30 Fluconazole/ Sodium Chloride (Diflucan 200mg/ 100ml Premix) 100 ml @ 100 mls/hr Q24H IV 08/07/16 09:00 08/14/16 08:59 08/11/16 09:47 Hydromorphone HCl (Dilaudid) 1 mg Q3H PRN IVP pain score 4-6 08/11/16 10:30 08/18/16 10:29 08/11/16 11:02 Hydromorphone HCl (Dilaudid) 2 mg Q3H PRN IVP pain score 7-10 08/11/16 10:30 08/18/16 10:29 Hydromorphone HCl 0.5 mg 0.5 mg Q4H PRN IVP Mild Pain (Pain Scale 1-3) 08/11/16 10:30 08/18/16 10:29 Insulin Aspart (NovoLOG) No Dose Q6HR SUBQ 08/04/16 00:00 09/03/16 00:00 08/11/16 18:44 Linezolid 300 ml @ 300 mls/hr Q12HR@0600,1800 IVPB 08/09/16 18:00 08/16/16 17:59 08/11/16 18:42 Metoprolol Tartrate (Lopressor) 50 mg Q12HR ORAL 08/08/16 21:00 09/07/16 20:59 08/11/16 09:48 Mupirocin (Bactroban Oint) 1 applic Q8H PRN TOPIC dressing change 08/07/16 19:15 08/12/16 19:14 Ondansetron HCl (Zofran) 4 mg Q6H PRN IVP Nausea & Vomiting 08/03/16 19:10 09/02/16 19:09 Pantoprazole (Protonix) 40 mg DAILY IVP 08/04/16 09:00 09/03/16 08:59 08/11/16 09:49 Piperacillin Sod/ Tazobactam Sod/ Dextrose (Zosyn/D5W) 110 ml @ 27.5 mls/hr EVERY 8 HOURS IVPB 08/10/16 14:00 08/17/16 13:59 08/11/16 14:00 Simethicone 80 mg 80 mg QIDPRN PRN NG GAS PAIN 08/03/16 19:00 09/02/16 18:59 08/09/16 15:59 Tamsulosin HCl 0.4 mg 0.4 mg BID ORAL 08/08/16 18:00 09/07/16 17:59 08/11/16 09:48 Piyush Harris M.D. Aug 11, 2016 19:26
--- NOTE | 2016-08-11 21:57 | General Progress Note ---
Assessment/Plan Assessment/Plan Assessment - SBO / gangrene - resected - septic shock - recovered - ATN - improving - abnormal LFT - ? shocked liver, improved - s/p ex lap for anastomotic leak - Leukocytosis - improving - anemia, due to multiple surgeries and blood draws - mild elevated amylase/lipase, likely due to surgery Recommendations po diet transfuse PRN TPN abx PPI follow labs and exam surgical f/u OOB Subjective Allergies: Coded Allergies: No Known Allergies (Unverified , 07/26/16) Subjective patient seen earlier today tolerating PO (+) BM, loose no Melena or BRBPR Objective Last 24 Hour Vital Signs Date Time Temp Pulse Resp B/P Pulse Ox O2 Delivery O2 Flow Rate FiO2 08/11/16 20:00 98.2 82 18 163/95 99 Room Air 08/11/16 16:00 99.0 95 18 145/91 99 Room Air 08/11/16 12:00 97.0 68 19 149/96 99 Room Air 08/11/16 09:48 75 159/91 08/11/16 08:00 98.2 74 19 146/88 99 Room Air 08/11/16 04:00 98.1 75 21 159/91 96 Room Air 08/11/16 00:28 98.4 71 21 149/92 96 Room Air Intake and Output 08/10/16 08/11/16 19:00 07:00 Intake Total 1668.0 ml 267.5 ml Output Total 1480 ml 2338 ml Balance 188.0 ml -2070.5 ml Intake Oral 600 ml 240 ml IV Total 1068.0 ml 27.5 ml Output Urine Total 1475 ml 2325 ml Drainage Total 5 ml 13 ml # Bowel Movements 1 Laboratory Tests 08/11/16 04:30: White Blood Count 10.4, Red Blood Count 2.77L, Hemoglobin 8.3L, Hematocrit 25.0L , Mean Corpuscular Volume 90, Mean Corpuscular Hemoglobin 30.1, Mean Corpuscular Hemoglobin Concent 33.3, Red Cell Distribution Width 13.1, Platelet Count 292, Mean Platelet Volume 7.1, Neutrophils (%) (Auto) 78.5H, Lymphocytes ( %) (Auto) 8.5L, Monocytes (%) (Auto) 8.2, Eosinophils (%) (Auto) 3.6H, Basophils (%) (Auto) 1.2, Sodium Level 139, Potassium Level 4.1, Chloride Level 99, Carbon Dioxide Level 26, Anion Gap 14, Blood Urea Nitrogen 31H, Creatinine 2.7H, Estimat Glomerular Filtration Rate 23.8, Glucose Level 181H, Uric Acid 2.4L, Calcium Level 8.1L, Phosphorus Level 3.6, Magnesium Level 1.8, Total Bilirubin 1.1, Direct Bilirubin 0.6H, Gamma Glutamyl Transpeptidase 275H, Aspartate Amino Transf (AST/SGOT) 28, Alanine Aminotransferase (ALT/SGPT) 41, Alkaline Phosphatase 173H, C-Reactive Protein, Quantitative 3.0H, Pro-B-Type Natriuretic Peptide 1093H, Total Protein 6.8, Albumin 2.8L, Globulin 4.0, Albumin/Globulin Ratio 0.7L, Amylase Level 153H, Lipase 228H Objective WDWN man NCAT supple CTA RR abd less distended, (+)large abd wound, dressing dry, (+) [place] trace edema ALVAREZ MARTINEZ Aug 11, 2016 21:57
[2016-08-12] MEDS: NovoLOG Insulin Flexpen SUBQ SCH ×5 (00:31→23:39)
[2016-08-12 04:00] VITALS: BP 147/87
[2016-08-12] MEDS: Piperacillin/Tazobactam 3.375 GM in D5W 110 ML IVPB SCH ×3 (06:03→22:00)
[2016-08-12 07:29] LABS: BASOPHILS % (AUTO) 1.6 % (0.0-2.0); EOSINOPHILS % (AUTO) 2.5 % (0.0-3.0); LYMPHOCYTES % (AUTO) 6.3 % (20.0-45.0); MEAN CORPUSCULAR HEMOGLOBIN 29.7 PG (27.0-31.0); MEAN CORPUSCULAR HGB CONC 32.9 G/DL (32.0-36.0); MEAN CORPUSCULAR VOLUME 90 FL (80-99); MEAN PLATELET VOLUME 7.4 FL (6.5-10.1); MONOCYTES % (AUTO) 9.6 % (1.0-10.0); PLATELET COUNT 307 K/UL (150-450); RED BLOOD COUNT 2.82 M/UL (4.70-6.10); RED CELL DISTRIBUTION WIDTH 13.4 % (11.6-14.8); WHITE BLOOD COUNT 11.7 K/UL (4.8-10.8)
[2016-08-12 07:31] LABS: CALCIUM 8.4 mg/dL (8.6-10.2); CREATININE 2.6 mg/dL (0.7-1.2); GLOMERULAR FILTRATION RATE 24.9 mL/min (>60); POTASSIUM 4.3 mEQ/L (3.4-4.9)
[2016-08-12 08:00] VITALS: BP 159/95
[2016-08-12] MEDS: Tamsulosin 0.4mg cap ORAL SCH ×2 (09:45→18:30)
[2016-08-12] MEDS: Fluconazole 200mg/100ml (Pre-Mix) IV SCH (09:45)
[2016-08-12] MEDS: Enoxaparin 30mg Inj SUBQ SCH (10:02)
[2016-08-12] MEDS: Pantoprazole Inj IVP SCH (10:04)
[2016-08-12] MEDS: Metoprolol 50mg tab ORAL SCH ×2 (10:06→21:00)
--- NOTE | 2016-08-12 10:10 | General Progress Note ---
Assessment/Plan Status: stable - from renal stand, unchanged Assessment/Plan status: Septic Shock leading to acute renal failure- Cr peaked 4.8 now down to 2.6 Abdominal Surgery 07/26/16 then again 05/27 and revision 08/02 Plan; remains on TPN on flomax- on lopressor on TPN post op care- Antibiotics- Protonix IV monitor renal parameters- per GI / Surgeon Favor transfusion as needed Subjective ROS Limited/Unobtainable: No Constitutional: Reports: malaise Gastrointestinal/Abdominal: Reports: abdomen distended Allergies: Coded Allergies: No Known Allergies (Unverified , 07/26/16) Objective Last 24 Hour Vital Signs Date Time Temp Pulse Resp B/P Pulse Ox O2 Delivery O2 Flow Rate FiO2 08/12/16 08:00 98.1 75 20 159/95 96 Room Air 08/12/16 04:00 97.7 71 19 147/87 96 Room Air 08/11/16 23:44 98.2 84 18 150/92 97 Room Air 08/11/16 22:05 82 163/95 08/11/16 20:00 98.2 82 18 163/95 99 Room Air 08/11/16 16:00 99.0 95 18 145/91 99 Room Air 08/11/16 12:00 97.0 68 19 149/96 99 Room Air Intake and Output 08/11/16 08/12/16 19:00 07:00 Intake Total 1304 ml 660.0 ml Output Total 3 ml 351 ml Balance 1301 ml 309.0 ml Intake Oral 150 ml 150 ml IV Total 1154 ml 510.0 ml Output Urine Total 150 ml Stool Total 200 ml Drainage Total 3 ml 1 ml # Voids 3 4 # Bowel Movements 1 Laboratory Tests 08/12/16 06:30: White Blood Count 11.7H, Red Blood Count 2.82L, Hemoglobin 8.4L, Hematocrit 25.5L, Mean Corpuscular Volume 90, Mean Corpuscular Hemoglobin 29.7, Mean Corpuscular Hemoglobin Concent 32.9, Red Cell Distribution Width 13.4, Platelet Count 307, Mean Platelet Volume 7.4, Neutrophils (%) (Auto) 80.0H, Lymphocytes ( %) (Auto) 6.3L, Monocytes (%) (Auto) 9.6, Eosinophils (%) (Auto) 2.5, Basophils (%) (Auto) 1.6, Sodium Level 137, Potassium Level 4.3, Chloride Level 98, Carbon Dioxide Level 25, Anion Gap 14, Blood Urea Nitrogen 29H, Creatinine 2.6H , Estimat Glomerular Filtration Rate 24.9, Glucose Level 204H, Calcium Level 8.4L General Appearance: no apparent distress Cardiovascular: regular rhythm Respiratory/Chest: decreased breath sounds Abdomen: distended Objective no other changes in PE REBECCA SCHULTE Aug 12, 2016 10:10
--- NOTE | 2016-08-12 10:53 | General Progress Note ---
Assessment/Plan Assessment/Plan ASSESSMENT: 1. Leukocytosis Likely 2/2 underlying sepsis vs reactive. Has improved 2. Small bowel obstruction. status post 3rd exploratory laparotomy; s/p resection gangrene 3. Anemia 2/2 chronic disease, does not require iron, potential slow bleed but unlikely 4. Sepsis, likely contributing to leukocytosis 5. Abdominal pain due to small bowel obstruction 6. Thrombocytopenia - which has improved RECOMMENDATIONS: 1. Monitor counts 2. Does not need require iron 3. Follow up on surgery, GI, ID recs 5. Transfuse to goal hgb >7 (hold transfusions today) 6. DVT ppx lovenox 7. GI ppx ppi 8. staff Thank you, Estelita Mendez MD Subjective Constitutional: Reports: no symptoms HEENT: Reports: no symptoms Cardiovascular: Reports: no symptoms Respiratory: Reports: no symptoms Gastrointestinal/Abdominal: Reports: poor appetite Genitourinary: Reports: no symptoms 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: Reports: no symptoms Endocrine: Reports: no symptoms Hematologic/Lymphatic: Reports: anemia Allergies: Coded Allergies: No Known Allergies (Unverified , 07/26/16) Subjective no bleeding, with some abdominal bloating Objective Last 24 Hour Vital Signs Date Time Temp Pulse Resp B/P Pulse Ox O2 Delivery O2 Flow Rate FiO2 08/12/16 10:06 78 130/98 08/12/16 08:00 98.1 75 20 159/95 96 Room Air 08/12/16 04:00 97.7 71 19 147/87 96 Room Air 08/11/16 23:44 98.2 84 18 150/92 97 Room Air 08/11/16 22:05 82 163/95 08/11/16 20:00 98.2 82 18 163/95 99 Room Air 08/11/16 16:00 99.0 95 18 145/91 99 Room Air 08/11/16 12:00 97.0 68 19 149/96 99 Room Air Intake and Output 08/11/16 08/12/16 19:00 07:00 Intake Total 1304 ml 660.0 ml Output Total 3 ml 351 ml Balance 1301 ml 309.0 ml Intake Oral 150 ml 150 ml IV Total 1154 ml 510.0 ml Output Urine Total 150 ml Stool Total 200 ml Drainage Total 3 ml 1 ml # Voids 3 4 # Bowel Movements 1 Laboratory Tests 08/12/16 06:30: White Blood Count 11.7H, Red Blood Count 2.82L, Hemoglobin 8.4L, Hematocrit 25.5L, Mean Corpuscular Volume 90, Mean Corpuscular Hemoglobin 29.7, Mean Corpuscular Hemoglobin Concent 32.9, Red Cell Distribution Width 13.4, Platelet Count 307, Mean Platelet Volume 7.4, Neutrophils (%) (Auto) 80.0H, Lymphocytes ( %) (Auto) 6.3L, Monocytes (%) (Auto) 9.6, Eosinophils (%) (Auto) 2.5, Basophils (%) (Auto) 1.6, Sodium Level 137, Potassium Level 4.3, Chloride Level 98, Carbon Dioxide Level 25, Anion Gap 14, Blood Urea Nitrogen 29H, Creatinine 2.6H , Estimat Glomerular Filtration Rate 24.9, Glucose Level 204H, Calcium Level 8.4L General Appearance: no apparent distress EENT: TMs normal Neck: supple Cardiovascular: regular rhythm Respiratory/Chest: normal breath sounds Abdomen: soft Extremities: non-tender Edema: 1+ Leg (L), 1+ Leg (R) Edema: mild edema Neurologic: no motor/sensory deficits Skin: warm/dry ESTELITA MENDEZ Aug 12, 2016 10:53
--- NOTE | 2016-08-12 11:30 | General Progress Note ---
Assessment/Plan Problem List: (1) Ileus ICD Codes: K56.7 - Ileus, unspecified SNOMED: 269784908 (2) Sepsis ICD Codes: A41.9 - Sepsis, unspecified organism SNOMED: 24578677 (3) Abdominal pain ICD Codes: R10.9 - Unspecified abdominal pain SNOMED: 57545716 (4) SBO (small bowel obstruction) ICD Codes: K56.69 - Other intestinal obstruction SNOMED: 660553315 (5) Abdominal gas pain ICD Codes: R14.1 - Gas pain SNOMED: 18405208 (6) Enteritis ICD Codes: K52.9 - Noninfective gastroenteritis and colitis, unspecified SNOMED: 98914643 Status: progressing Assessment/Plan re anastamosis abdominal pain is improving abx per id afebrile s/.p repair of sbo and bowel gangrene Subjective Gastrointestinal/Abdominal: Reports: abdominal pain Allergies: Coded Allergies: No Known Allergies (Unverified , 07/26/16) Objective Last 24 Hour Vital Signs Date Time Temp Pulse Resp B/P Pulse Ox O2 Delivery O2 Flow Rate FiO2 08/12/16 10:06 78 130/98 08/12/16 08:00 98.1 75 20 159/95 96 Room Air 08/12/16 04:00 97.7 71 19 147/87 96 Room Air 08/11/16 23:44 98.2 84 18 150/92 97 Room Air 08/11/16 22:05 82 163/95 08/11/16 20:00 98.2 82 18 163/95 99 Room Air 08/11/16 16:00 99.0 95 18 145/91 99 Room Air 08/11/16 12:00 97.0 68 19 149/96 99 Room Air Intake and Output 08/11/16 08/12/16 19:00 07:00 Intake Total 1304 ml 660.0 ml Output Total 3 ml 351 ml Balance 1301 ml 309.0 ml Intake Oral 150 ml 150 ml IV Total 1154 ml 510.0 ml Output Urine Total 150 ml Stool Total 200 ml Drainage Total 3 ml 1 ml # Voids 3 4 # Bowel Movements 1 Laboratory Tests 08/12/16 06:30: White Blood Count 11.7H, Red Blood Count 2.82L, Hemoglobin 8.4L, Hematocrit 25.5L, Mean Corpuscular Volume 90, Mean Corpuscular Hemoglobin 29.7, Mean Corpuscular Hemoglobin Concent 32.9, Red Cell Distribution Width 13.4, Platelet Count 307, Mean Platelet Volume 7.4, Neutrophils (%) (Auto) 80.0H, Lymphocytes ( %) (Auto) 6.3L, Monocytes (%) (Auto) 9.6, Eosinophils (%) (Auto) 2.5, Basophils (%) (Auto) 1.6, Sodium Level 137, Potassium Level 4.3, Chloride Level 98, Carbon Dioxide Level 25, Anion Gap 14, Blood Urea Nitrogen 29H, Creatinine 2.6H , Estimat Glomerular Filtration Rate 24.9, Glucose Level 204H, Calcium Level 8.4L Neck: supple Cardiovascular: normal rate Respiratory/Chest: lungs clear Abdomen: soft Teo Love MD Aug 12, 2016 11:30
[2016-08-12 12:00] VITALS: BP 153/99
[2016-08-12] MEDS ORDERED: traMADol 50mg tab ORAL PRN (12:15)
--- NOTE | 2016-08-12 12:28 | Pulmonology Progress Note ---
Assessment/Plan Problems: (1) SBO (small bowel obstruction) (2) MIGNON (acute kidney injury) (3) Ileus (4) Enteritis (5) Non-ST elevation (NSTEMI) myocardial infarction Assessment/Plan improving, had a large BM on Diflucan, Linezolid, zosyn wbc decreasing, slightly high today continue antibiotics check electrolytes advance diet dvt prophylaxis pt/ot Subjective ROS Limited/Unobtainable: No Constitutional: Reports: no symptoms HEENT: Repors: no symptoms Respiratory: Reports: no symptoms Cardiovascular: Reports: no symptoms Allergies: Coded Allergies: No Known Allergies (Unverified , 07/26/16) Objective Last 24 Hour Vital Signs Date Time Temp Pulse Resp B/P Pulse Ox O2 Delivery O2 Flow Rate FiO2 08/12/16 10:06 78 130/98 08/12/16 08:00 98.1 75 20 159/95 96 Room Air 08/12/16 04:00 97.7 71 19 147/87 96 Room Air 08/11/16 23:44 98.2 84 18 150/92 97 Room Air 08/11/16 22:05 82 163/95 08/11/16 20:00 98.2 82 18 163/95 99 Room Air 08/11/16 16:00 99.0 95 18 145/91 99 Room Air Intake and Output 08/11/16 08/12/16 19:00 07:00 Intake Total 1304 ml 660.0 ml Output Total 3 ml 351 ml Balance 1301 ml 309.0 ml Intake Oral 150 ml 150 ml IV Total 1154 ml 510.0 ml Output Urine Total 150 ml Stool Total 200 ml Drainage Total 3 ml 1 ml # Voids 3 4 # Bowel Movements 1 General Appearance: WD/WN HEENT: normocephalic Respiratory/Chest: chest wall non-tender, lungs clear Cardiovascular: normal peripheral pulses, normal rate Abdomen: normal bowel sounds, soft, non tender Genitourinary: normal external genitalia Laboratory Tests 08/12/16 06:30: White Blood Count 11.7H, Red Blood Count 2.82L, Hemoglobin 8.4L, Hematocrit 25.5L, Mean Corpuscular Volume 90, Mean Corpuscular Hemoglobin 29.7, Mean Corpuscular Hemoglobin Concent 32.9, Red Cell Distribution Width 13.4, Platelet Count 307, Mean Platelet Volume 7.4, Neutrophils (%) (Auto) 80.0H, Lymphocytes ( %) (Auto) 6.3L, Monocytes (%) (Auto) 9.6, Eosinophils (%) (Auto) 2.5, Basophils (%) (Auto) 1.6, Sodium Level 137, Potassium Level 4.3, Chloride Level 98, Carbon Dioxide Level 25, Anion Gap 14, Blood Urea Nitrogen 29H, Creatinine 2.6H , Estimat Glomerular Filtration Rate 24.9, Glucose Level 204H, Calcium Level 8.4L Current Medications Medications (Trade) Dose Ordered Sig/Arti Route PRN Reason Start Time Stop Time Status Last Admin Dose Admin Acetaminophen (Tylenol) 650 mg Q4H PRN RECTAL FEVER>100.5 08/03/16 19:00 09/02/16 18:59 Dextrose (D10w) 1,000 ml @ 0 mls/hr Q24H PRN IV PN interrupted or unavailable 08/03/16 21:00 09/02/16 20:59 Dextrose (Dextrose 50%) STAT PRN IV Hypoglycemia 08/03/16 19:00 09/02/16 18:59 Enoxaparin Sodium (Lovenox) 30 mg DAILY SUBQ 08/04/16 09:00 09/03/16 08:59 08/12/16 10:02 Fat Emulsion Intravenous 240 ml/Amino Acids/ Electrolytes/ Dextrose 2,232 ml @ 50 mls/hr Q24H IV 08/11/16 21:00 08/12/16 20:59 08/11/16 22:07 Fat Emulsion Intravenous/Amino Acids/ Electrolytes/ Dextrose (Intralipids/Tpn) 1,200 ml @ 50 mls/hr Q24H IV 08/12/16 21:00 09/11/16 20:59 Fluconazole/ Sodium Chloride (Diflucan 200mg/ 100ml Premix) 100 ml @ 100 mls/hr Q24H IV 08/07/16 09:00 08/14/16 08:59 08/11/16 09:47 Insulin Aspart (NovoLOG) No Dose Q6HR SUBQ 08/04/16 00:00 09/03/16 00:00 08/12/16 12:14 Linezolid 300 ml @ 300 mls/hr Q12HR@0600,1800 IVPB 08/09/16 18:00 08/16/16 17:59 08/12/16 04:55 Metoprolol Tartrate (Lopressor) 50 mg Q12HR ORAL 08/08/16 21:00 09/07/16 20:59 08/12/16 10:06 Mupirocin (Bactroban Oint) 1 applic Q8H PRN TOPIC dressing change 08/07/16 19:15 08/12/16 19:14 Ondansetron HCl (Zofran) 4 mg Q6H PRN IVP Nausea & Vomiting 08/03/16 19:10 09/02/16 19:09 Pantoprazole (Protonix) 40 mg DAILY IVP 08/04/16 09:00 09/03/16 08:59 08/12/16 10:04 Piperacillin Sod/ Tazobactam Sod 3.375 gm/Dextrose 110 ml @ 27.5 mls/hr EVERY 8 HOURS IVPB 08/10/16 14:00 08/17/16 13:59 08/12/16 06:03 Simethicone 80 mg 80 mg QIDPRN PRN NG GAS PAIN 08/03/16 19:00 09/02/16 18:59 08/09/16 15:59 Tamsulosin HCl 0.4 mg 0.4 mg BID ORAL 08/08/16 18:00 09/07/16 17:59 08/12/16 09:45 Tramadol HCl (Ultram) 50 mg Q4H PRN ORAL For Pain 08/12/16 12:15 08/19/16 12:14 MAIKEL ESPINOSA Aug 12, 2016 12:28
[2016-08-12] MEDS ORDERED: Tubing IV Secondary IV ONE (13:44)
[2016-08-12] MEDS ORDERED: NS 550ML IV ONE (13:44)
[2016-08-12] MEDS ORDERED: D5 1/2NS 1000ml IV ONE (13:44)
[2016-08-12] MEDS ORDERED: NS 275ml ONE (13:44)
[2016-08-12 16:00] VITALS: BP 153/93
--- NOTE | 2016-08-12 16:26 | Infectious Diseases Prog Note ---
Assessment/Plan Problems: (1) Septic shock Assessment & Plan: improving , S/P four EXP LAP, due to anastomosis leak , S/ P revision x4 , repeated blood culture so far is negative , UA is negative for infection and CXR showed atelactasis , will continue current antibiotics regimen , and monitor WBC. stool for C diff is negative , abdominal fluids culture showed no growth. (2) SBO (small bowel obstruction) Assessment & Plan: S/P EX LAP X 4 ,due to anastomosis leak , has ileus post OP , now with persistent abdominal pain, continue IVF, and pain management , general surgery is following (3) Abdominal pain Assessment & Plan: improving, surgery is following, encourage walking (4) MIGNON (acute kidney injury) Assessment & Plan: improving, due to sepsis and hypotension, continue IVF, titrate to keep SBP >100, renal is following (5) Ileus Assessment & Plan: improving, due to repeated EXP LAP, continue IVF, encourage walking , surgery is following Subjective Gastrointestinal/Abdominal: Reports: bloating, other - pressure Allergies: Coded Allergies: No Known Allergies (Unverified , 07/26/16) Subjective had one bowel movement today , no fever or chills, no cough or SOB.on TPN Objective Vital Signs Last 24 Hour Vital Signs Date Time Temp Pulse Resp B/P Pulse Ox O2 Delivery O2 Flow Rate FiO2 08/12/16 12:00 98.1 71 20 153/99 98 Room Air 08/12/16 10:06 78 130/98 08/12/16 08:00 98.1 75 20 159/95 96 Room Air 08/12/16 04:00 97.7 71 19 147/87 96 Room Air 08/11/16 23:44 98.2 84 18 150/92 97 Room Air 08/11/16 22:05 82 163/95 08/11/16 20:00 98.2 82 18 163/95 99 Room Air General Appearance: WD/WN, no acute distress HEENT: normocephalic, atraumatic, anicteric, mucous membranes moist Respiratory/Chest: chest wall non-tender, lungs clear, normal breath sounds, no respiratory distress, no accessory muscle use Cardiovascular: normal peripheral pulses, normal rate, regular rhythm, no gallop/murmur, no JVD Abdomen: no organomegaly, no mass, hypoactive bowel sounds, distended, tender Extremities: no cyanosis Skin: no rash, no lesions Laboratory Tests Test 08/12/16 06:30 White Blood Count 11.7 K/UL (4.8-10.8) H Red Blood Count 2.82 M/UL (4.70-6.10) L Hemoglobin 8.4 G/DL (14.2-18.0) L Hematocrit 25.5 % (42.0-52.0) L Mean Corpuscular Volume 90 FL (80-99) Mean Corpuscular Hemoglobin 29.7 PG (27.0-31.0) Mean Corpuscular Hemoglobin Concent 32.9 G/DL (32.0-36.0) Red Cell Distribution Width 13.4 % (11.6-14.8) Platelet Count 307 K/UL (150-450) Mean Platelet Volume 7.4 FL (6.5-10.1) Neutrophils (%) (Auto) 80.0 % (45.0-75.0) H Lymphocytes (%) (Auto) 6.3 % (20.0-45.0) L Monocytes (%) (Auto) 9.6 % (1.0-10.0) Eosinophils (%) (Auto) 2.5 % (0.0-3.0) Basophils (%) (Auto) 1.6 % (0.0-2.0) Sodium Level 137 mEQ/L (135-145) Potassium Level 4.3 mEQ/L (3.4-4.9) Chloride Level 98 mEQ/L (98-107) Carbon Dioxide Level 25 mEQ/L (20-30) Anion Gap 14 (5-15) Blood Urea Nitrogen 29 mg/dL (7-23) H Creatinine 2.6 mg/dL (0.7-1.2) H Estimat Glomerular Filtration Rate 24.9 mL/min (>60) Glucose Level 204 mg/dL (74-106) H Calcium Level 8.4 mg/dL (8.6-10.2) L Current Medications Medications (Trade) Dose Ordered Sig/Arti Route PRN Reason Start Time Stop Time Status Last Admin Dose Admin Acetaminophen (Tylenol) 650 mg Q4H PRN RECTAL FEVER>100.5 08/03/16 19:00 09/02/16 18:59 Dextrose (D10w) 1,000 ml @ 0 mls/hr Q24H PRN IV PN interrupted or unavailable 08/03/16 21:00 09/02/16 20:59 Dextrose (Dextrose 50%) STAT PRN IV Hypoglycemia 08/03/16 19:00 09/02/16 18:59 Enoxaparin Sodium (Lovenox) 30 mg DAILY SUBQ 08/04/16 09:00 09/03/16 08:59 08/12/16 10:02 Fat Emulsion Intravenous 240 ml/Amino Acids/ Electrolytes/ Dextrose 2,232 ml @ 50 mls/hr Q24H IV 08/11/16 21:00 08/12/16 20:59 08/11/16 22:07 Fat Emulsion Intravenous/Amino Acids/ Electrolytes/ Dextrose (Intralipids/Tpn) 1,200 ml @ 50 mls/hr Q24H IV 08/12/16 21:00 09/11/16 20:59 Fluconazole/ Sodium Chloride (Diflucan 200mg/ 100ml Premix) 100 ml @ 100 mls/hr Q24H IV 08/07/16 09:00 08/14/16 08:59 08/11/16 09:47 Insulin Aspart (NovoLOG) No Dose Q6HR SUBQ 08/04/16 00:00 09/03/16 00:00 08/12/16 12:14 Linezolid 300 ml @ 300 mls/hr Q12HR@0600,1800 IVPB 08/09/16 18:00 08/16/16 17:59 08/12/16 04:55 Metoprolol Tartrate (Lopressor) 50 mg Q12HR ORAL 08/08/16 21:00 09/07/16 20:59 08/12/16 10:06 Mupirocin (Bactroban Oint) 1 applic Q8H PRN TOPIC dressing change 08/07/16 19:15 08/12/16 19:14 Ondansetron HCl (Zofran) 4 mg Q6H PRN IVP Nausea & Vomiting 08/03/16 19:10 09/02/16 19:09 Pantoprazole (Protonix) 40 mg DAILY IVP 08/04/16 09:00 09/03/16 08:59 08/12/16 10:04 Piperacillin Sod/ Tazobactam Sod 3.375 gm/Dextrose 110 ml @ 27.5 mls/hr EVERY 8 HOURS IVPB 08/10/16 14:00 08/17/16 13:59 08/12/16 06:03 Simethicone 80 mg 80 mg QIDPRN PRN NG GAS PAIN 08/03/16 19:00 09/02/16 18:59 08/09/16 15:59 Tamsulosin HCl 0.4 mg 0.4 mg BID ORAL 08/08/16 18:00 09/07/16 17:59 08/12/16 09:45 Tramadol HCl (Ultram) 50 mg Q4H PRN ORAL For Pain 08/12/16 12:15 08/19/16 12:14 Piyush Harris M.D. Aug 12, 2016 16:26
--- NOTE | 2016-08-12 18:05 | General Progress Note ---
Assessment/Plan Assessment/Plan Assessment - SBO / gangrene - resected - septic shock - recovered - ATN - improving - abnormal LFT - ? shocked liver, improved - s/p ex lap for anastomotic leak - Leukocytosis - improving - anemia, due to multiple surgeries and blood draws - mild elevated amylase/lipase, likely due to surgery - will consider MRI Recommendations po diet transfuse PRN TPN abx PPI follow labs and exam will consider MRI Sunday surgical f/u OOB Subjective Allergies: Coded Allergies: No Known Allergies (Unverified , 07/26/16) Subjective patient seen earlier today tolerating PO (+) BM no Melena or BRBPR WBC slightly higher today Objective Last 24 Hour Vital Signs Date Time Temp Pulse Resp B/P Pulse Ox O2 Delivery O2 Flow Rate FiO2 08/12/16 16:00 98.4 77 20 153/93 100 Room Air 08/12/16 12:00 98.1 71 20 153/99 98 Room Air 08/12/16 10:06 78 130/98 08/12/16 08:00 98.1 75 20 159/95 96 Room Air 08/12/16 04:00 97.7 71 19 147/87 96 Room Air 08/11/16 23:44 98.2 84 18 150/92 97 Room Air 08/11/16 22:05 82 163/95 08/11/16 20:00 98.2 82 18 163/95 99 Room Air Intake and Output 08/11/16 08/12/16 19:00 07:00 Intake Total 1304 ml 660.0 ml Output Total 3 ml 351 ml Balance 1301 ml 309.0 ml Intake Oral 150 ml 150 ml IV Total 1154 ml 510.0 ml Output Urine Total 150 ml Stool Total 200 ml Drainage Total 3 ml 1 ml # Voids 3 4 # Bowel Movements 1 Laboratory Tests 08/12/16 06:30: White Blood Count 11.7H, Red Blood Count 2.82L, Hemoglobin 8.4L, Hematocrit 25.5L, Mean Corpuscular Volume 90, Mean Corpuscular Hemoglobin 29.7, Mean Corpuscular Hemoglobin Concent 32.9, Red Cell Distribution Width 13.4, Platelet Count 307, Mean Platelet Volume 7.4, Neutrophils (%) (Auto) 80.0H, Lymphocytes ( %) (Auto) 6.3L, Monocytes (%) (Auto) 9.6, Eosinophils (%) (Auto) 2.5, Basophils (%) (Auto) 1.6, Sodium Level 137, Potassium Level 4.3, Chloride Level 98, Carbon Dioxide Level 25, Anion Gap 14, Blood Urea Nitrogen 29H, Creatinine 2.6H , Estimat Glomerular Filtration Rate 24.9, Glucose Level 204H, Calcium Level 8.4L Objective WDWN man NCAT supple CTA RR abd less distended, (+)large abd wound, dressing dry, (+) [place] trace edema ALVAREZ MARTINEZ Aug 12, 2016 18:05
[2016-08-12 20:00] VITALS: BP 159/96
[2016-08-12] MEDS: TPN IV SCH (21:00)
[2016-08-12] MEDS: FAT EMULSION 20% IV SCH (21:00)
--- NOTE | 2016-08-12 21:57 | Cardiac Electrophysiology PN ---
Assessment/Plan Assessment/Plan 1. Elevated troponin due to demand ischemia and renal failure. ECG non ischemic and Echo NL EF.No chest pain.On Lopressor. 2. S/P Septic shock due to small bowel obstruction and gangrene. Off pressors.On iv fluid and antibiotics. WBC down to 10.4 . 3. HTN. Continue Lopressor 25 bid. Avoid ACEI or ARB for renal failure 4. Small bowel obstruction status post laparotomy and small bowel resection. S/ P 3rd surgery on 08/02/16. Follow up Dr Murrieta. 5. Respiratory failure. Extubated 6. Renal failure, creatinine 2.7 DW son Subjective Subjective No chest pain or SOB.Had BM today again.Son at bedside. Objective Last 24 Hour Vital Signs Date Time Temp Pulse Resp B/P Pulse Ox O2 Delivery O2 Flow Rate FiO2 08/12/16 20:00 98.1 80 16 159/96 96 Room Air 08/12/16 16:00 98.4 77 20 153/93 100 Room Air 08/12/16 12:00 98.1 71 20 153/99 98 Room Air 08/12/16 10:06 78 130/98 08/12/16 08:00 98.1 75 20 159/95 96 Room Air 08/12/16 04:00 97.7 71 19 147/87 96 Room Air 08/11/16 23:44 98.2 84 18 150/92 97 Room Air 08/11/16 22:05 82 163/95 Intake and Output 08/11/16 08/12/16 19:00 07:00 Intake Total 1304 ml 660.0 ml Output Total 3 ml 351 ml Balance 1301 ml 309.0 ml Intake Oral 150 ml 150 ml IV Total 1154 ml 510.0 ml Output Urine Total 150 ml Stool Total 200 ml Drainage Total 3 ml 1 ml # Voids 3 4 # Bowel Movements 1 Laboratory Tests Test 08/12/16 06:30 White Blood Count 11.7 K/UL (4.8-10.8) H Red Blood Count 2.82 M/UL (4.70-6.10) L Hemoglobin 8.4 G/DL (14.2-18.0) L Hematocrit 25.5 % (42.0-52.0) L Mean Corpuscular Volume 90 FL (80-99) Mean Corpuscular Hemoglobin 29.7 PG (27.0-31.0) Mean Corpuscular Hemoglobin Concent 32.9 G/DL (32.0-36.0) Red Cell Distribution Width 13.4 % (11.6-14.8) Platelet Count 307 K/UL (150-450) Mean Platelet Volume 7.4 FL (6.5-10.1) Neutrophils (%) (Auto) 80.0 % (45.0-75.0) H Lymphocytes (%) (Auto) 6.3 % (20.0-45.0) L Monocytes (%) (Auto) 9.6 % (1.0-10.0) Eosinophils (%) (Auto) 2.5 % (0.0-3.0) Basophils (%) (Auto) 1.6 % (0.0-2.0) Sodium Level 137 mEQ/L (135-145) Potassium Level 4.3 mEQ/L (3.4-4.9) Chloride Level 98 mEQ/L (98-107) Carbon Dioxide Level 25 mEQ/L (20-30) Anion Gap 14 (5-15) Blood Urea Nitrogen 29 mg/dL (7-23) H Creatinine 2.6 mg/dL (0.7-1.2) H Estimat Glomerular Filtration Rate 24.9 mL/min (>60) Glucose Level 204 mg/dL (74-106) H Calcium Level 8.4 mg/dL (8.6-10.2) L Objective HEAD AND NECK: No JVD. LUNGS: Clear CARDIOVASCULAR: Nl S1 and S2 with no gallop or murmur. ABDOMEN: Post median laparotomy. EXTREMITIES: No pitting edema. HONEY DUKE Aug 12, 2016 21:57
[2016-08-13 04:00] VITALS: BP 167/94
[2016-08-13] MEDS: Piperacillin/Tazobactam 3.375 GM in D5W 110 ML IVPB SCH ×3 (06:26→20:50)
[2016-08-13] MEDS: NovoLOG Insulin Flexpen SUBQ SCH ×3 (06:28→18:42)
[2016-08-13 07:14] LABS: BASOPHILS % (AUTO) 1.6 % (0.0-2.0); EOSINOPHILS % (AUTO) 2.9 % (0.0-3.0); LYMPHOCYTES % (AUTO) 10.3 % (20.0-45.0); MEAN CORPUSCULAR HEMOGLOBIN 30.8 PG (27.0-31.0); MEAN CORPUSCULAR HGB CONC 34.2 G/DL (32.0-36.0); MEAN CORPUSCULAR VOLUME 90 FL (80-99); MEAN PLATELET VOLUME 7.1 FL (6.5-10.1); MONOCYTES % (AUTO) 8.1 % (1.0-10.0); NEUTROPHILS % (AUTO) 77.1 % (45.0-75.0); PLATELET COUNT 305 K/UL (150-450); RED BLOOD COUNT 2.81 M/UL (4.70-6.10); WHITE BLOOD COUNT 11.5 K/UL (4.8-10.8)
[2016-08-13 07:43] LABS: ALBUMIN/GLOBULIN RATIO 0.7 (1.0-2.7); CALCIUM 8.3 mg/dL (8.6-10.2); CHOLESTEROL/HDL RATIO 7.1 (3.3-4.4); CREATININE 2.5 mg/dL (0.7-1.2); MAGNESIUM 1.8 mg/dL (1.7-2.5); PHOSPHORUS 3.7 mg/dL (2.5-4.8); POTASSIUM 4.2 mEQ/L (3.4-4.9); TOTAL PROTEIN 6.9 g/dL (6.6-8.7); URIC ACID 2.8 mg/dL (3.0-7.5)
[2016-08-13 07:45] LABS: AMYLASE 186 U/L (10-110); LIPASE 279 U/L (< 60)
[2016-08-13 08:01] LABS: BILIRUBIN,DIRECT 0.6 mg/dL (0.1-0.3)
[2016-08-13 08:15] VITALS: BP 155/95
[2016-08-13] MEDS: Tamsulosin 0.4mg cap ORAL SCH ×2 (08:36→18:41)
[2016-08-13] MEDS: Metoprolol 50mg tab ORAL SCH ×2 (08:37→20:50)
[2016-08-13] MEDS: Enoxaparin 30mg Inj SUBQ SCH (08:40)
[2016-08-13] MEDS: Fluconazole 200mg/100ml (Pre-Mix) IV SCH (09:30)
[2016-08-13] MEDS: Pantoprazole Inj IVP SCH (10:05)
--- NOTE | 2016-08-13 11:27 | General Progress Note ---
Assessment/Plan Assessment/Plan ASSESSMENT: 1. Leukocytosis Likely 2/2 underlying sepsis vs reactive. Has improved 2. Small bowel obstruction. status post 3rd exploratory laparotomy; s/p resection gangrene 3. Anemia 2/2 chronic disease, does not require iron, potential slow bleed but unlikely 4. Sepsis, likely contributing to leukocytosis 5. Abdominal pain due to small bowel obstruction 6. Thrombocytopenia - which has improved RECOMMENDATIONS: 1. Monitor counts 2. Does not need require iron 3. Follow up on surgery, GI, ID recs 5. Transfuse to goal hgb >7 6. DVT ppx lovenox 7. GI ppx ppi 8. DW staff Thank you, Estelita Mendez MD Subjective Constitutional: Reports: no symptoms HEENT: Reports: no symptoms Cardiovascular: Reports: no symptoms Respiratory: Reports: no symptoms Gastrointestinal/Abdominal: Reports: poor appetite Genitourinary: Reports: no symptoms 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: Reports: no symptoms Endocrine: Reports: no symptoms Hematologic/Lymphatic: Reports: anemia Allergies: Coded Allergies: No Known Allergies (Unverified , 07/26/16) Subjective no bleeding, abdominal bloating better Objective Last 24 Hour Vital Signs Date Time Temp Pulse Resp B/P Pulse Ox O2 Delivery O2 Flow Rate FiO2 08/13/16 08:37 77 140/68 08/13/16 08:15 97.0 73 19 155/95 99 Room Air 08/13/16 04:00 97.9 70 19 167/94 98 Room Air 08/12/16 21:00 80 159/96 08/12/16 20:00 98.1 80 16 159/96 96 Room Air 08/12/16 16:00 98.4 77 20 153/93 100 Room Air 08/12/16 12:00 98.1 71 20 153/99 98 Room Air Intake and Output 08/12/16 08/13/16 19:00 07:00 Intake Total 480 ml 1492.5 ml Output Total 3 ml 10 ml Balance 477 ml 1482.5 ml Intake Oral 480 ml 200 ml IV Total 1292.5 ml Drainage Total 3 ml 10 ml # Voids 1 3 # Bowel Movements 1 Laboratory Tests 08/13/16 06:15: White Blood Count 11.5H, Red Blood Count 2.81L, Hemoglobin 8.6L, Hematocrit 25.3L, Mean Corpuscular Volume 90, Mean Corpuscular Hemoglobin 30.8, Mean Corpuscular Hemoglobin Concent 34.2, Red Cell Distribution Width 13.0, Platelet Count 305, Mean Platelet Volume 7.1, Neutrophils (%) (Auto) 77.1H, Lymphocytes ( %) (Auto) 10.3L, Monocytes (%) (Auto) 8.1, Eosinophils (%) (Auto) 2.9, Basophils (%) (Auto) 1.6, Sodium Level 136, Potassium Level 4.2, Chloride Level 97L, Carbon Dioxide Level 21, Anion Gap 18H, Blood Urea Nitrogen 28H, Creatinine 2.5H, Estimat Glomerular Filtration Rate 26.0, Glucose Level 199H, Uric Acid 2.8L, Calcium Level 8.3L, Phosphorus Level 3.7, Magnesium Level 1.8, Total Bilirubin 1.2, Direct Bilirubin 0.6H, Gamma Glutamyl Transpeptidase 323H, Aspartate Amino Transf (AST/SGOT) 56H, Alanine Aminotransferase (ALT/SGPT) 61H, Alkaline Phosphatase 200H, C-Reactive Protein, Quantitative 2.0H, Total Protein 6.9, Albumin 3.0L, Globulin 3.9, Albumin/Globulin Ratio 0.7L, Triglycerides Level 152H, Cholesterol Level 141, LDL Cholesterol 91, HDL Cholesterol 20, Cholesterol/HDL Ratio 7.1H, Amylase Level 186H, Lipase 279H General Appearance: no apparent distress EENT: normal ENT inspection Neck: normal alignment Cardiovascular: normal rate Respiratory/Chest: normal breath sounds Abdomen: soft Extremities: non-tender Edema: 1+ Leg (L), 1+ Leg (R) Edema: mild edema Neurologic: no motor/sensory deficits ESTELITA MENDEZ Aug 13, 2016 11:27
--- NOTE | 2016-08-13 11:47 | General Progress Note ---
Assessment/Plan Assessment/Plan (1) Small bowel obstruction (2) Intractable abdominal pain (3) Gangrene of the small bowel (4) S/p Exploratory Laparotomy resection of the small bowel with primary anastomosis Pt will be continued on Tramadol as needed. Pt was d/w Dr. Aguirre and he concurred. Subjective Date patient seen: Aug 13, 2016 Time patient seen: 11:15 - am Allergies: Coded Allergies: No Known Allergies (Unverified , 07/26/16) Subjective Constitutional: Reports: weakness, Denies: chills, diaphoresis, fever, malaise HEENT: Denies: blurred vision, double vision, ear discharge, ear pain, eye pain , mouth pain, mouth swelling, nose congestion, nose pain, tearing, throat pain, throat swelling Cardiovascular: Denies: chest pain, edema, irregular heart rate, lightheadedness, palpitations, syncope Respiratory: Denies: SOB at rest, SOB with exertion, cough, orthopnea, sputum, stridor, wheezing Gastrointestinal/Abdominal: Reports: abdomen distended, abdominal pain Denies: black stools, blood in stool, constipated, diarrhea, difficulty swallowing, poor appetite, poor fluid intake, rectal bleeding, tarry stools, vomiting Genitourinary: Denies: burning, discharge, flank pain, frequency, hematuria, incontinence, pain, urgency 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: Reports: weakness, Denies: anxiety, depressed, emotional problems, headache, numbness, paresthesia, pre-existing deficit, seizure, tingling, tremors Endocrine: Denies: excessive sweating, flushing, increased hunger, increased thirst, increased urine, intolerance to cold, intolerance to heat, unexplained weight gain, unexplained weight loss Hematologic/Lymphatic: Denies: anemia, easy bleeding, easy bruising Subjective Pts is sitting up in chair, daughter at bedside. Pts daughter explains that with all the medication and the Dilaudid as needed pt was having confusion. The Dilaudid was d/cd and he was started on Tramadol as needed which he has not asked for as of yet. I d/w daughter and pt about pain medications and they understand. Objective Last 24 Hour Vital Signs Date Time Temp Pulse Resp B/P Pulse Ox O2 Delivery O2 Flow Rate FiO2 08/13/16 08:37 77 140/68 08/13/16 08:15 97.0 73 19 155/95 99 Room Air 1/29/17 04:00 97.9 70 19 167/94 98 Room Air 08/12/16 21:00 80 159/96 08/12/16 20:00 98.1 80 16 159/96 96 Room Air 08/12/16 16:00 98.4 77 20 153/93 100 Room Air 08/12/16 12:00 98.1 71 20 153/99 98 Room Air Intake and Output 08/12/16 08/13/16 19:00 07:00 Intake Total 480 ml 1492.5 ml Output Total 3 ml 10 ml Balance 477 ml 1482.5 ml Intake Oral 480 ml 200 ml IV Total 1292.5 ml Drainage Total 3 ml 10 ml # Voids 1 3 # Bowel Movements 1 Laboratory Tests 08/13/16 06:15: White Blood Count 11.5H, Red Blood Count 2.81L, Hemoglobin 8.6L, Hematocrit 25.3L, Mean Corpuscular Volume 90, Mean Corpuscular Hemoglobin 30.8, Mean Corpuscular Hemoglobin Concent 34.2, Red Cell Distribution Width 13.0, Platelet Count 305, Mean Platelet Volume 7.1, Neutrophils (%) (Auto) 77.1H, Lymphocytes ( %) (Auto) 10.3L, Monocytes (%) (Auto) 8.1, Eosinophils (%) (Auto) 2.9, Basophils (%) (Auto) 1.6, Sodium Level 136, Potassium Level 4.2, Chloride Level 97L, Carbon Dioxide Level 21, Anion Gap 18H, Blood Urea Nitrogen 28H, Creatinine 2.5H, Estimat Glomerular Filtration Rate 26.0, Glucose Level 199H, Uric Acid 2.8L, Calcium Level 8.3L, Phosphorus Level 3.7, Magnesium Level 1.8, Total Bilirubin 1.2, Direct Bilirubin 0.6H, Gamma Glutamyl Transpeptidase 323H, Aspartate Amino Transf (AST/SGOT) 56H, Alanine Aminotransferase (ALT/SGPT) 61H, Alkaline Phosphatase 200H, C-Reactive Protein, Quantitative 2.0H, Total Protein 6.9, Albumin 3.0L, Globulin 3.9, Albumin/Globulin Ratio 0.7L, Triglycerides Level 152H, Cholesterol Level 141, LDL Cholesterol 91, HDL Cholesterol 20, Cholesterol/HDL Ratio 7.1H, Amylase Level 186H, Lipase 279H Objective General Appearance: alert EENT: PERRL/EOMI Neck: non-tender, supple Cardiovascular: normal rate, regular rhythm Respiratory/Chest: lungs clear Abdomen: other - tenderness to palpation bandages applied Extremities: normal inspection Neurologic: alert, responsive Skin: warm/dry SHA BOSE Aug 13, 2016 11:47
--- NOTE | 2016-08-13 11:49 | General Progress Note ---
Assessment/Plan Problem List: (1) Ileus ICD Codes: K56.7 - Ileus, unspecified SNOMED: 200789265 (2) Sepsis ICD Codes: A41.9 - Sepsis, unspecified organism SNOMED: 07829273 (3) Abdominal pain ICD Codes: R10.9 - Unspecified abdominal pain SNOMED: 50192139 (4) SBO (small bowel obstruction) ICD Codes: K56.69 - Other intestinal obstruction SNOMED: 435402369 (5) Abdominal gas pain ICD Codes: R14.1 - Gas pain SNOMED: 82450594 (6) Enteritis ICD Codes: K52.9 - Noninfective gastroenteritis and colitis, unspecified SNOMED: 02380752 Status: progressing Assessment/Plan re anastamosis abdominal pain is improving abx per id afebrile s/.p repair of sbo and bowel gangrene diet started by surgeon dc diluadid by surgeon needs t ambulate weak and deblitated Subjective Gastrointestinal/Abdominal: Reports: abdominal pain Allergies: Coded Allergies: No Known Allergies (Unverified , 07/26/16) Objective Last 24 Hour Vital Signs Date Time Temp Pulse Resp B/P Pulse Ox O2 Delivery O2 Flow Rate FiO2 08/13/16 08:37 77 140/68 08/13/16 08:15 97.0 73 19 155/95 99 Room Air 08/13/16 04:00 97.9 70 19 167/94 98 Room Air 08/12/16 21:00 80 159/96 08/12/16 20:00 98.1 80 16 159/96 96 Room Air 08/12/16 16:00 98.4 77 20 153/93 100 Room Air 08/12/16 12:00 98.1 71 20 153/99 98 Room Air Intake and Output 08/12/16 08/13/16 19:00 07:00 Intake Total 480 ml 1492.5 ml Output Total 3 ml 10 ml Balance 477 ml 1482.5 ml Intake Oral 480 ml 200 ml IV Total 1292.5 ml Drainage Total 3 ml 10 ml # Voids 1 3 # Bowel Movements 1 Laboratory Tests 08/13/16 06:15: White Blood Count 11.5H, Red Blood Count 2.81L, Hemoglobin 8.6L, Hematocrit 25.3L, Mean Corpuscular Volume 90, Mean Corpuscular Hemoglobin 30.8, Mean Corpuscular Hemoglobin Concent 34.2, Red Cell Distribution Width 13.0, Platelet Count 305, Mean Platelet Volume 7.1, Neutrophils (%) (Auto) 77.1H, Lymphocytes ( %) (Auto) 10.3L, Monocytes (%) (Auto) 8.1, Eosinophils (%) (Auto) 2.9, Basophils (%) (Auto) 1.6, Sodium Level 136, Potassium Level 4.2, Chloride Level 97L, Carbon Dioxide Level 21, Anion Gap 18H, Blood Urea Nitrogen 28H, Creatinine 2.5H, Estimat Glomerular Filtration Rate 26.0, Glucose Level 199H, Uric Acid 2.8L, Calcium Level 8.3L, Phosphorus Level 3.7, Magnesium Level 1.8, Total Bilirubin 1.2, Direct Bilirubin 0.6H, Gamma Glutamyl Transpeptidase 323H, Aspartate Amino Transf (AST/SGOT) 56H, Alanine Aminotransferase (ALT/SGPT) 61H, Alkaline Phosphatase 200H, C-Reactive Protein, Quantitative 2.0H, Total Protein 6.9, Albumin 3.0L, Globulin 3.9, Albumin/Globulin Ratio 0.7L, Triglycerides Level 152H, Cholesterol Level 141, LDL Cholesterol 91, HDL Cholesterol 20, Cholesterol/HDL Ratio 7.1H, Amylase Level 186H, Lipase 279H EENT: PERRL/EOMI Neck: supple Cardiovascular: normal rate Respiratory/Chest: lungs clear Abdomen: soft Teo Love MD Aug 13, 2016 11:49
[2016-08-13 12:27] VITALS: BP 152/94
--- NOTE | 2016-08-13 12:55 | Pulmonology Progress Note ---
Assessment/Plan Problems: (1) SBO (small bowel obstruction) (2) MIGNON (acute kidney injury) (3) Ileus (4) Enteritis (5) Non-ST elevation (NSTEMI) myocardial infarction Assessment/Plan improving, had a large BM on Diflucan, Linezolid, zosyn wbc decreasing, s lcontinue antibiotics check electrolytes advance diet dvt prophylaxis pt/ot dc planning Subjective ROS Limited/Unobtainable: No Constitutional: Reports: no symptoms HEENT: Repors: no symptoms Allergies: Coded Allergies: No Known Allergies (Unverified , 07/26/16) Objective Last 24 Hour Vital Signs Date Time Temp Pulse Resp B/P Pulse Ox O2 Delivery O2 Flow Rate FiO2 08/13/16 12:27 98.2 67 19 152/94 98 Room Air 08/13/16 08:37 77 140/68 08/13/16 08:15 97.0 73 19 155/95 99 Room Air 08/13/16 04:00 97.9 70 19 167/94 98 Room Air 08/12/16 21:00 80 159/96 08/12/16 20:00 98.1 80 16 159/96 96 Room Air 08/12/16 16:00 98.4 77 20 153/93 100 Room Air Intake and Output 08/12/16 08/13/16 19:00 07:00 Intake Total 480 ml 1492.5 ml Output Total 3 ml 10 ml Balance 477 ml 1482.5 ml Intake Oral 480 ml 200 ml IV Total 1292.5 ml Drainage Total 3 ml 10 ml # Voids 1 3 # Bowel Movements 1 General Appearance: WD/WN HEENT: normocephalic, atraumatic Respiratory/Chest: chest wall non-tender, lungs clear Cardiovascular: normal peripheral pulses, normal rate Abdomen: normal bowel sounds, soft, non tender Extremities: no cyanosis Skin: no rash, no ulcers Laboratory Tests 08/13/16 06:15: White Blood Count 11.5H, Red Blood Count 2.81L, Hemoglobin 8.6L, Hematocrit 25.3L, Mean Corpuscular Volume 90, Mean Corpuscular Hemoglobin 30.8, Mean Corpuscular Hemoglobin Concent 34.2, Red Cell Distribution Width 13.0, Platelet Count 305, Mean Platelet Volume 7.1, Neutrophils (%) (Auto) 77.1H, Lymphocytes ( %) (Auto) 10.3L, Monocytes (%) (Auto) 8.1, Eosinophils (%) (Auto) 2.9, Basophils (%) (Auto) 1.6, Sodium Level 136, Potassium Level 4.2, Chloride Level 97L, Carbon Dioxide Level 21, Anion Gap 18H, Blood Urea Nitrogen 28H, Creatinine 2.5H, Estimat Glomerular Filtration Rate 26.0, Glucose Level 199H, Uric Acid 2.8L, Calcium Level 8.3L, Phosphorus Level 3.7, Magnesium Level 1.8, Total Bilirubin 1.2, Direct Bilirubin 0.6H, Gamma Glutamyl Transpeptidase 323H, Aspartate Amino Transf (AST/SGOT) 56H, Alanine Aminotransferase (ALT/SGPT) 61H, Alkaline Phosphatase 200H, C-Reactive Protein, Quantitative 2.0H, Total Protein 6.9, Albumin 3.0L, Globulin 3.9, Albumin/Globulin Ratio 0.7L, Triglycerides Level 152H, Cholesterol Level 141, LDL Cholesterol 91, HDL Cholesterol 20, Cholesterol/HDL Ratio 7.1H, Amylase Level 186H, Lipase 279H Current Medications Medications (Trade) Dose Ordered Sig/Arti Route PRN Reason Start Time Stop Time Status Last Admin Dose Admin Acetaminophen (Tylenol) 650 mg Q4H PRN RECTAL FEVER>100.5 08/03/16 19:00 09/02/16 18:59 Dextrose (D10w) 1,000 ml @ 0 mls/hr Q24H PRN IV PN interrupted or unavailable 08/03/16 21:00 09/02/16 20:59 Dextrose (Dextrose 50%) STAT PRN IV Hypoglycemia 08/03/16 19:00 09/02/16 18:59 Enoxaparin Sodium (Lovenox) 30 mg DAILY SUBQ 08/04/16 09:00 09/03/16 08:59 08/13/16 08:40 Fat Emulsion Intravenous/Amino Acids/ Electrolytes/ Dextrose (Intralipids/Tpn) 1,200 ml @ 50 mls/hr Q24H IV 08/12/16 21:00 09/11/16 20:59 08/12/16 21:00 Fluconazole/ Sodium Chloride (Diflucan 200mg/ 100ml Premix) 100 ml @ 100 mls/hr Q24H IV 08/07/16 09:00 08/14/16 08:59 08/13/16 09:30 Insulin Aspart (NovoLOG) No Dose Q6HR SUBQ 08/04/16 00:00 09/03/16 00:00 08/13/16 12:22 Linezolid 300 ml @ 300 mls/hr Q12HR@0600,1800 IVPB 08/09/16 18:00 08/16/16 17:59 08/13/16 05:03 Metoprolol Tartrate (Lopressor) 50 mg Q12HR ORAL 08/08/16 21:00 09/07/16 20:59 08/13/16 08:37 Ondansetron HCl (Zofran) 4 mg Q6H PRN IVP Nausea & Vomiting 08/03/16 19:10 09/02/16 19:09 Pantoprazole (Protonix) 40 mg DAILY IVP 08/04/16 09:00 09/03/16 08:59 08/13/16 10:05 Piperacillin Sod/ Tazobactam Sod 3.375 gm/Dextrose 110 ml @ 27.5 mls/hr EVERY 8 HOURS IVPB 08/10/16 14:00 08/17/16 13:59 08/13/16 06:26 Simethicone 80 mg 80 mg QIDPRN PRN NG GAS PAIN 08/03/16 19:00 09/02/16 18:59 08/09/16 15:59 Tamsulosin HCl 0.4 mg 0.4 mg BID ORAL 08/08/16 18:00 09/07/16 17:59 08/13/16 08:36 Tramadol HCl (Ultram) 50 mg Q4H PRN ORAL For Pain 08/12/16 12:15 08/19/16 12:14 MAIKEL ESPINOSA Aug 13, 2016 12:55
--- NOTE | 2016-08-13 13:03 | General Progress Note ---
Assessment/Plan Status: stable Status Narrative Cr lowering Assessment/Plan status: Septic Shock leading to acute renal failure- Cr peaked 4.8 now down to 2.6 Abdominal Surgery 07/26/16 then again 05/27 and revision 08/02 Plan; remains on TPN on flomax- on lopressor on TPN post op care- Antibiotics- Protonix IV monitor renal parameters- per GI / Surgeon Favor transfusion as needed Subjective ROS Limited/Unobtainable: No Constitutional: Reports: malaise Allergies: Coded Allergies: No Known Allergies (Unverified , 07/26/16) Objective Last 24 Hour Vital Signs Date Time Temp Pulse Resp B/P Pulse Ox O2 Delivery O2 Flow Rate FiO2 08/13/16 12:27 98.2 67 19 152/94 98 Room Air 08/13/16 08:37 77 140/68 08/13/16 08:15 97.0 73 19 155/95 99 Room Air 08/13/16 04:00 97.9 70 19 167/94 98 Room Air 08/12/16 21:00 80 159/96 08/12/16 20:00 98.1 80 16 159/96 96 Room Air 08/12/16 16:00 98.4 77 20 153/93 100 Room Air Intake and Output 08/12/16 08/13/16 19:00 07:00 Intake Total 480 ml 1492.5 ml Output Total 3 ml 10 ml Balance 477 ml 1482.5 ml Intake Oral 480 ml 200 ml IV Total 1292.5 ml Drainage Total 3 ml 10 ml # Voids 1 3 # Bowel Movements 1 Laboratory Tests 08/13/16 06:15: White Blood Count 11.5H, Red Blood Count 2.81L, Hemoglobin 8.6L, Hematocrit 25.3L, Mean Corpuscular Volume 90, Mean Corpuscular Hemoglobin 30.8, Mean Corpuscular Hemoglobin Concent 34.2, Red Cell Distribution Width 13.0, Platelet Count 305, Mean Platelet Volume 7.1, Neutrophils (%) (Auto) 77.1H, Lymphocytes ( %) (Auto) 10.3L, Monocytes (%) (Auto) 8.1, Eosinophils (%) (Auto) 2.9, Basophils (%) (Auto) 1.6, Sodium Level 136, Potassium Level 4.2, Chloride Level 97L, Carbon Dioxide Level 21, Anion Gap 18H, Blood Urea Nitrogen 28H, Creatinine 2.5H, Estimat Glomerular Filtration Rate 26.0, Glucose Level 199H, Uric Acid 2.8L, Calcium Level 8.3L, Phosphorus Level 3.7, Magnesium Level 1.8, Total Bilirubin 1.2, Direct Bilirubin 0.6H, Gamma Glutamyl Transpeptidase 323H, Aspartate Amino Transf (AST/SGOT) 56H, Alanine Aminotransferase (ALT/SGPT) 61H, Alkaline Phosphatase 200H, C-Reactive Protein, Quantitative 2.0H, Total Protein 6.9, Albumin 3.0L, Globulin 3.9, Albumin/Globulin Ratio 0.7L, Triglycerides Level 152H, Cholesterol Level 141, LDL Cholesterol 91, HDL Cholesterol 20, Cholesterol/HDL Ratio 7.1H, Amylase Level 186H, Lipase 279H General Appearance: no apparent distress Objective no other changes in PE REBECCA SCHULTE Aug 13, 2016 13:02
--- NOTE | 2016-08-13 14:49 | General Surgery Progress Note ---
General Surgery-Progress Note Subjective Procedure Performed Exploratory Laparotomy and resection of anastomosis with anstomosis of small bowel to colon Symptoms: improved, tolerating diet, BM Objective Last 24 Hour Vital Signs Date Time Temp Pulse Resp B/P Pulse Ox O2 Delivery O2 Flow Rate FiO2 08/13/16 12:27 98.2 67 19 152/94 98 Room Air 08/13/16 08:37 77 140/68 08/13/16 08:15 97.0 73 19 155/95 99 Room Air 08/13/16 04:00 97.9 70 19 167/94 98 Room Air 08/12/16 21:00 80 159/96 08/12/16 20:00 98.1 80 16 159/96 96 Room Air 08/12/16 16:00 98.4 77 20 153/93 100 Room Air I&O Intake and Output 08/12/16 08/13/16 19:00 07:00 Intake Total 480 ml 1492.5 ml Output Total 3 ml 10 ml Balance 477 ml 1482.5 ml Intake Oral 480 ml 200 ml IV Total 1292.5 ml Drainage Total 3 ml 10 ml # Voids 1 3 # Bowel Movements 1 Wound: clean, intact Drains: curtis Respiratory: clear Abdomen: soft, flat, non-tender, present bowel sounds Extremities: no tenderness Laboratory Tests Test 08/13/16 06:15 White Blood Count 11.5 K/UL (4.8-10.8) H Red Blood Count 2.81 M/UL (4.70-6.10) L Hemoglobin 8.6 G/DL (14.2-18.0) L Hematocrit 25.3 % (42.0-52.0) L Mean Corpuscular Volume 90 FL (80-99) Mean Corpuscular Hemoglobin 30.8 PG (27.0-31.0) Mean Corpuscular Hemoglobin Concent 34.2 G/DL (32.0-36.0) Red Cell Distribution Width 13.0 % (11.6-14.8) Platelet Count 305 K/UL (150-450) Mean Platelet Volume 7.1 FL (6.5-10.1) Neutrophils (%) (Auto) 77.1 % (45.0-75.0) H Lymphocytes (%) (Auto) 10.3 % (20.0-45.0) L Monocytes (%) (Auto) 8.1 % (1.0-10.0) Eosinophils (%) (Auto) 2.9 % (0.0-3.0) Basophils (%) (Auto) 1.6 % (0.0-2.0) Sodium Level 136 mEQ/L (135-145) Potassium Level 4.2 mEQ/L (3.4-4.9) Chloride Level 97 mEQ/L (98-107) L Carbon Dioxide Level 21 mEQ/L (20-30) Anion Gap 18 (5-15) H Blood Urea Nitrogen 28 mg/dL (7-23) H Creatinine 2.5 mg/dL (0.7-1.2) H Estimat Glomerular Filtration Rate 26.0 mL/min (>60) Glucose Level 199 mg/dL (74-106) H Uric Acid 2.8 mg/dL (3.0-7.5) L Calcium Level 8.3 mg/dL (8.6-10.2) L Phosphorus Level 3.7 mg/dL (2.5-4.8) Magnesium Level 1.8 mg/dL (1.7-2.5) Total Bilirubin 1.2 mg/dL (0.0-1.2) Direct Bilirubin 0.6 mg/dL (0.1-0.3) H Gamma Glutamyl Transpeptidase 323 U/L (8-61) H Aspartate Amino Transf (AST/SGOT) 56 U/L (5-40) H Alanine Aminotransferase (ALT/SGPT) 61 U/L (3-41) H Alkaline Phosphatase 200 U/L (40-129) H C-Reactive Protein, Quantitative 2.0 mg/dL (< 0.5) H Total Protein 6.9 g/dL (6.6-8.7) Albumin 3.0 g/dL (3.5-5.2) L Globulin 3.9 g/dL Albumin/Globulin Ratio 0.7 (1.0-2.7) L Triglycerides Level 152 mg/dL (< 150) H Cholesterol Level 141 mg/dL (< 200) LDL Cholesterol 91 mg/dL (60-99) HDL Cholesterol 20 mg/dL (> 60) Cholesterol/HDL Ratio 7.1 (3.3-4.4) H Amylase Level 186 U/L (10-110) H Lipase 279 U/L (< 60) H Assessment Post-op Diagnosis anastomosis leakage Plan Additional Comments continue as before EDWIN NOGUEIRA Aug 13, 2016 14:49
[2016-08-13 16:01] VITALS: BP 150/98
--- NOTE | 2016-08-13 16:49 | General Progress Note ---
Assessment/Plan Assessment/Plan Assessment - SBO / gangrene - resected - septic shock - recovered - ATN - improving - abnormal LFT - ? shocked liver, improved - s/p ex lap for anastomotic leak - Leukocytosis - improving - anemia, due to multiple surgeries and blood draws - mild elevated amylase/lipase, likely due to surgery - will consider MRI Recommendations po diet transfuse PRN TPN abx PPI follow labs and exam MRI abd in am surgical f/u OOB Subjective Allergies: Coded Allergies: No Known Allergies (Unverified , 07/26/16) Subjective patient seen earlier today tolerating PO (+) BM no Melena or BRBPR amylase lipase and LFT elevated Objective Last 24 Hour Vital Signs Date Time Temp Pulse Resp B/P Pulse Ox O2 Delivery O2 Flow Rate FiO2 08/13/16 16:01 97.5 70 19 150/98 99 Room Air 08/13/16 12:27 98.2 67 19 152/94 98 Room Air 08/13/16 08:37 77 140/68 08/13/16 08:15 97.0 73 19 155/95 99 Room Air 08/13/16 04:00 97.9 70 19 167/94 98 Room Air 08/12/16 21:00 80 159/96 08/12/16 20:00 98.1 80 16 159/96 96 Room Air Intake and Output 08/12/16 08/13/16 19:00 07:00 Intake Total 480 ml 1492.5 ml Output Total 3 ml 10 ml Balance 477 ml 1482.5 ml Intake Oral 480 ml 200 ml IV Total 1292.5 ml Drainage Total 3 ml 10 ml # Voids 1 3 # Bowel Movements 1 Laboratory Tests 08/13/16 06:15: White Blood Count 11.5H, Red Blood Count 2.81L, Hemoglobin 8.6L, Hematocrit 25.3L, Mean Corpuscular Volume 90, Mean Corpuscular Hemoglobin 30.8, Mean Corpuscular Hemoglobin Concent 34.2, Red Cell Distribution Width 13.0, Platelet Count 305, Mean Platelet Volume 7.1, Neutrophils (%) (Auto) 77.1H, Lymphocytes ( %) (Auto) 10.3L, Monocytes (%) (Auto) 8.1, Eosinophils (%) (Auto) 2.9, Basophils (%) (Auto) 1.6, Sodium Level 136, Potassium Level 4.2, Chloride Level 97L, Carbon Dioxide Level 21, Anion Gap 18H, Blood Urea Nitrogen 28H, Creatinine 2.5H, Estimat Glomerular Filtration Rate 26.0, Glucose Level 199H, Uric Acid 2.8L, Calcium Level 8.3L, Phosphorus Level 3.7, Magnesium Level 1.8, Total Bilirubin 1.2, Direct Bilirubin 0.6H, Gamma Glutamyl Transpeptidase 323H, Aspartate Amino Transf (AST/SGOT) 56H, Alanine Aminotransferase (ALT/SGPT) 61H, Alkaline Phosphatase 200H, C-Reactive Protein, Quantitative 2.0H, Total Protein 6.9, Albumin 3.0L, Globulin 3.9, Albumin/Globulin Ratio 0.7L, Triglycerides Level 152H, Cholesterol Level 141, LDL Cholesterol 91, HDL Cholesterol 20, Cholesterol/HDL Ratio 7.1H, Amylase Level 186H, Lipase 279H Objective WDWN man NCAT supple CTA RR abd less distended, (+)large abd wound, dressing dry, (+) [place] trace edema ALVAREZ MARTINEZ Aug 13, 2016 16:49
[2016-08-13 20:23] VITALS: BP 155/99
[2016-08-13] MEDS: TPN IV SCH (22:08)
[2016-08-13] MEDS: FAT EMULSION 20% IV SCH (22:08)
[2016-08-14] VITALS (9 sets, daily range): BP systolic 145–166; BP diastolic 92–101
[2016-08-14] MEDS: NovoLOG Insulin Flexpen SUBQ SCH ×4 (00:26→18:22)
[2016-08-14] MEDS: Piperacillin/Tazobactam 3.375 GM in D5W 110 ML IVPB SCH ×4 (05:05→21:48)
[2016-08-14 05:27] LABS: MEAN CORPUSCULAR HEMOGLOBIN 29.7 PG (27.0-31.0); MEAN CORPUSCULAR HGB CONC 32.8 G/DL (32.0-36.0); MEAN CORPUSCULAR VOLUME 91 FL (80-99); MEAN PLATELET VOLUME 7.3 FL (6.5-10.1); PLATELET COUNT 296 K/UL (150-450); RED BLOOD COUNT 2.68 M/UL (4.70-6.10); RED CELL DISTRIBUTION WIDTH 13.5 % (11.6-14.8)
[2016-08-14 05:54] LABS: AMYLASE 202 U/L (10-110); LIPASE 259 U/L (< 60)
[2016-08-14 05:55] LABS: ALBUMIN/GLOBULIN RATIO 0.7 (1.0-2.7); CALCIUM 8.1 mg/dL (8.6-10.2); CREATININE 2.5 mg/dL (0.7-1.2); CRP QUANT 1.3 mg/dL (< 0.5); POTASSIUM 4.1 mEQ/L (3.4-4.9); TOTAL PROTEIN 6.6 g/dL (6.6-8.7)
[2016-08-14 08:22] LABS: BAND NEUTROPHILS % (MANUAL) 0 % (0-8); BASOPHILS % (MANUAL) 0 % (0-2); EOSINOPHILS % (MANUAL) 5 % (0-3); LYMPHOCYTES % (MANUAL) 13 % (20-45); NEUTROPHILS % (MANUAL) 72 % (45-75); PLATELET ESTIMATE ADEQUATE; PLATELET MORPHOLOGY NORMAL; TOTAL CELLS COUNTED 100
[2016-08-14 08:23] LABS: HYPOCHROMASIA 1+
[2016-08-14] MEDS: Tamsulosin 0.4mg cap ORAL SCH ×2 (09:49→18:21)
[2016-08-14] MEDS: Metoprolol 50mg tab ORAL SCH ×2 (09:49→21:48)
[2016-08-14] MEDS: Pantoprazole Inj IVP SCH (09:50)
[2016-08-14] MEDS: Enoxaparin 30mg Inj SUBQ SCH (09:55)
--- NOTE | 2016-08-14 11:35 | General Progress Note ---
Assessment/Plan Problem List: (1) Ileus ICD Codes: K56.7 - Ileus, unspecified SNOMED: 973559402 (2) Sepsis ICD Codes: A41.9 - Sepsis, unspecified organism SNOMED: 09945204 (3) Abdominal pain ICD Codes: R10.9 - Unspecified abdominal pain SNOMED: 15405115 (4) SBO (small bowel obstruction) ICD Codes: K56.69 - Other intestinal obstruction SNOMED: 576292021 (5) Abdominal gas pain ICD Codes: R14.1 - Gas pain SNOMED: 69802303 (6) Enteritis ICD Codes: K52.9 - Noninfective gastroenteritis and colitis, unspecified SNOMED: 94570358 Status: progressing Assessment/Plan re anastamosis abdominal pain is improving needs snf placement afebrile clinically improving weak and deblitated Subjective Constitutional: Reports: no symptoms Gastrointestinal/Abdominal: Reports: abdominal pain Allergies: Coded Allergies: No Known Allergies (Unverified , 07/26/16) Objective Last 24 Hour Vital Signs Date Time Temp Pulse Resp B/P Pulse Ox O2 Delivery O2 Flow Rate FiO2 08/14/16 10:35 97.0 66 19 146/96 100 Room Air 08/14/16 10:20 97.7 71 18 155/101 100 Room Air 08/14/16 09:49 74 159/96 08/14/16 08:04 98.4 74 20 159/96 99 Room Air 08/14/16 04:00 96.8 80 20 156/96 99 Room Air 08/14/16 00:00 98.2 69 18 147/96 99 Room Air 08/13/16 20:50 77 155/99 08/13/16 20:23 98.2 77 18 155/99 100 Room Air 08/13/16 16:01 97.5 70 19 150/98 99 Room Air 08/13/16 12:27 98.2 67 19 152/94 98 Room Air Intake and Output 08/13/16 08/14/16 19:00 07:00 Intake Total 480 ml 1590.0 ml Output Total 440 ml 900 ml Balance 40 ml 690.0 ml Intake Oral 480 ml 480 ml IV Total 1110.0 ml Output Urine Total 440 ml 900 ml # Voids 3 1 # Bowel Movements 2 Laboratory Tests 08/14/16 04:30: White Blood Count 12.0H, Red Blood Count 2.68L, Hemoglobin 7.9L, Hematocrit 24.2L, Mean Corpuscular Volume 91, Mean Corpuscular Hemoglobin 29.7, Mean Corpuscular Hemoglobin Concent 32.8, Red Cell Distribution Width 13.5, Platelet Count 296, Mean Platelet Volume 7.3, Neutrophils (%) (Auto) , Lymphocytes (%) ( Auto) , Monocytes (%) (Auto) , Eosinophils (%) (Auto) , Basophils (%) (Auto) , Differential Total Cells Counted 100, Neutrophils % (Manual) 72, Lymphocytes % ( Manual) 13L, Monocytes % (Manual) 10, Eosinophils % (Manual) 5H, Basophils % ( Manual) 0, Band Neutrophils 0, Platelet Estimate Adequate, Platelet Morphology Normal, Hypochromasia 1+, Sodium Level 137, Potassium Level 4.1, Chloride Level 98, Carbon Dioxide Level 23, Anion Gap 16H, Blood Urea Nitrogen 26H, Creatinine 2.5H, Estimat Glomerular Filtration Rate 26.0, Glucose Level 163H, Calcium Level 8.1L, Total Bilirubin 1.0, Aspartate Amino Transf (AST/SGOT) 44H, Alanine Aminotransferase (ALT/SGPT) 59H, Alkaline Phosphatase 190H, C-Reactive Protein, Quantitative 1.3H, Total Protein 6.6, Albumin 2.9L, Globulin 3.7, Albumin/ Globulin Ratio 0.7L, Amylase Level 202H, Lipase 259H EENT: TMs normal Neck: supple Cardiovascular: normal rate Abdomen: tender Teo Love MD Aug 14, 2016 11:35
--- NOTE | 2016-08-14 11:40 | Diagnostic Imaging Report ---
Indication: Abnormal liver function tests. Prior CT demonstrating small bowel obstruction Technique: Coronal and axial single shot fast spin-echo breath-hold, axial T2 FRFSE, 2-D thick slab MRCP, AXIAL 2-D FIESTA fat saturated, axial 3-D dual echo breath-hold, water weighted axial LAVA FLEX, revealed 3-D MRCP images were obtained of the abdomen. MIP reconstructions were generated of the bile ducts Comparison: CT scan dated 08/05/2016 Findings: Somewhat unusual appearance to the gallbladder, with what appears be an area of constriction in the mid fundus, and irregular appearance of the distal fundus. Filling defects within these areas could represent small gallstones or redundant mucosal folds is. Normal caliber bile ducts. No filling defects demonstrated. Normal- appearing pancreatic duct. Previously reported pleural fluid and ascites fluid are no longer evident. No focal liver lesions are evident. The pancreas, spleen, adrenals, kidneys are grossly unremarkable. Previously reported nasogastric tube is not currently evident. High T2 signal along the abdominal midline likely reflects recent surgery Impression: Somewhat unusual appearance to the gallbladder, of uncertain significance. Apparent filling defects in the areas of fraction likely reflect redundant mucosal folds, but small gallstones cannot be ruled out. Consider ultrasound for further evaluation Normal-appearing bile ducts. No evidence of choledocholithiasis No other significant abnormality.
--- NOTE | 2016-08-14 11:55 | General Progress Note ---
Assessment/Plan Assessment/Plan Assessment - SBO / gangrene - resected - septic shock - recovered - ATN - improving - abnormal LFT - ? shocked liver, improved - s/p ex lap for anastomotic leak - Leukocytosis - improving - anemia, due to multiple surgeries and blood draws - mild elevated amylase/lipase, likely due to surgery - normal Pancreas on MRI Recommendations po diet transfuse PRN TPN abx PPI follow labs and exam surgical f/u OOB Subjective Allergies: Coded Allergies: No Known Allergies (Unverified , 07/26/16) Subjective patient seen earlier today tolerating PO (+) BM getting RBC transfusion MRI done - no pancreas abnormalities Objective Last 24 Hour Vital Signs Date Time Temp Pulse Resp B/P Pulse Ox O2 Delivery O2 Flow Rate FiO2 08/14/16 10:35 97.0 66 19 146/96 100 Room Air 08/14/16 10:20 97.7 71 18 155/101 100 Room Air 08/14/16 09:49 74 159/96 08/14/16 08:04 98.4 74 20 159/96 99 Room Air 08/14/16 04:00 96.8 80 20 156/96 99 Room Air 08/14/16 00:00 98.2 69 18 147/96 99 Room Air 08/13/16 20:50 77 155/99 08/13/16 20:23 98.2 77 18 155/99 100 Room Air 08/13/16 16:01 97.5 70 19 150/98 99 Room Air 08/13/16 12:27 98.2 67 19 152/94 98 Room Air Intake and Output 08/13/16 08/14/16 19:00 07:00 Intake Total 480 ml 1590.0 ml Output Total 440 ml 900 ml Balance 40 ml 690.0 ml Intake Oral 480 ml 480 ml IV Total 1110.0 ml Output Urine Total 440 ml 900 ml # Voids 3 1 # Bowel Movements 2 Laboratory Tests 08/14/16 04:30: White Blood Count 12.0H, Red Blood Count 2.68L, Hemoglobin 7.9L, Hematocrit 24.2L, Mean Corpuscular Volume 91, Mean Corpuscular Hemoglobin 29.7, Mean Corpuscular Hemoglobin Concent 32.8, Red Cell Distribution Width 13.5, Platelet Count 296, Mean Platelet Volume 7.3, Neutrophils (%) (Auto) , Lymphocytes (%) ( Auto) , Monocytes (%) (Auto) , Eosinophils (%) (Auto) , Basophils (%) (Auto) , Differential Total Cells Counted 100, Neutrophils % (Manual) 72, Lymphocytes % ( Manual) 13L, Monocytes % (Manual) 10, Eosinophils % (Manual) 5H, Basophils % ( Manual) 0, Band Neutrophils 0, Platelet Estimate Adequate, Platelet Morphology Normal, Hypochromasia 1+, Sodium Level 137, Potassium Level 4.1, Chloride Level 98, Carbon Dioxide Level 23, Anion Gap 16H, Blood Urea Nitrogen 26H, Creatinine 2.5H, Estimat Glomerular Filtration Rate 26.0, Glucose Level 163H, Calcium Level 8.1L, Total Bilirubin 1.0, Aspartate Amino Transf (AST/SGOT) 44H, Alanine Aminotransferase (ALT/SGPT) 59H, Alkaline Phosphatase 190H, C-Reactive Protein, Quantitative 1.3H, Total Protein 6.6, Albumin 2.9L, Globulin 3.7, Albumin/ Globulin Ratio 0.7L, Amylase Level 202H, Lipase 259H Objective WDWN man NCAT supple CTA RR abd less distended, (+)large abd wound trace edema ALVAREZ MARTINEZ Aug 14, 2016 11:55
[2016-08-14] MEDS ORDERED: Neosporin Oint 15gm TOPIC PRN (13:15)
--- NOTE | 2016-08-14 13:15 | General Surgery Progress Note ---
General Surgery-Progress Note Subjective Procedure Performed Exploratory Laparotomy and resection of anastomosis with anstomosis of small bowel to colon Symptoms: BM Objective Last 24 Hour Vital Signs Date Time Temp Pulse Resp B/P Pulse Ox O2 Delivery O2 Flow Rate FiO2 08/14/16 11:52 96.8 73 21 145/101 100 Room Air 08/14/16 10:35 97.0 66 19 146/96 100 Room Air 08/14/16 10:20 97.7 71 18 155/101 100 Room Air 08/14/16 09:49 74 159/96 08/14/16 08:04 98.4 74 20 159/96 99 Room Air 08/14/16 04:00 96.8 80 20 156/96 99 Room Air 08/14/16 00:00 98.2 69 18 147/96 99 Room Air 08/13/16 20:50 77 155/99 08/13/16 20:23 98.2 77 18 155/99 100 Room Air 08/13/16 16:01 97.5 70 19 150/98 99 Room Air I&O Intake and Output 08/13/16 08/14/16 19:00 07:00 Intake Total 480 ml 1590.0 ml Output Total 440 ml 900 ml Balance 40 ml 690.0 ml Intake Oral 480 ml 480 ml IV Total 1110.0 ml Output Urine Total 440 ml 900 ml # Voids 3 1 # Bowel Movements 2 Wound: clean, intact Respiratory: clear Abdomen: soft, flat, non-tender, present bowel sounds Extremities: no tenderness Laboratory Tests Test 08/14/16 04:30 White Blood Count 12.0 K/UL (4.8-10.8) H Red Blood Count 2.68 M/UL (4.70-6.10) L Hemoglobin 7.9 G/DL (14.2-18.0) L Hematocrit 24.2 % (42.0-52.0) L Mean Corpuscular Volume 91 FL (80-99) Mean Corpuscular Hemoglobin 29.7 PG (27.0-31.0) Mean Corpuscular Hemoglobin Concent 32.8 G/DL (32.0-36.0) Red Cell Distribution Width 13.5 % (11.6-14.8) Platelet Count 296 K/UL (150-450) Mean Platelet Volume 7.3 FL (6.5-10.1) Neutrophils (%) (Auto) % (45.0-75.0) Lymphocytes (%) (Auto) % (20.0-45.0) Monocytes (%) (Auto) % (1.0-10.0) Eosinophils (%) (Auto) % (0.0-3.0) Basophils (%) (Auto) % (0.0-2.0) Differential Total Cells Counted 100 Neutrophils % (Manual) 72 % (45-75) Lymphocytes % (Manual) 13 % (20-45) L Monocytes % (Manual) 10 % (1-10) Eosinophils % (Manual) 5 % (0-3) H Basophils % (Manual) 0 % (0-2) Band Neutrophils 0 % (0-8) Platelet Estimate Adequate Platelet Morphology Normal Hypochromasia 1+ Sodium Level 137 mEQ/L (135-145) Potassium Level 4.1 mEQ/L (3.4-4.9) Chloride Level 98 mEQ/L (98-107) Carbon Dioxide Level 23 mEQ/L (20-30) Anion Gap 16 (5-15) H Blood Urea Nitrogen 26 mg/dL (7-23) H Creatinine 2.5 mg/dL (0.7-1.2) H Estimat Glomerular Filtration Rate 26.0 mL/min (>60) Glucose Level 163 mg/dL (74-106) H Calcium Level 8.1 mg/dL (8.6-10.2) L Total Bilirubin 1.0 mg/dL (0.0-1.2) Aspartate Amino Transf (AST/SGOT) 44 U/L (5-40) H Alanine Aminotransferase (ALT/SGPT) 59 U/L (3-41) H Alkaline Phosphatase 190 U/L (40-129) H C-Reactive Protein, Quantitative 1.3 mg/dL (< 0.5) H Total Protein 6.6 g/dL (6.6-8.7) Albumin 2.9 g/dL (3.5-5.2) L Globulin 3.7 g/dL Albumin/Globulin Ratio 0.7 (1.0-2.7) L Amylase Level 202 U/L (10-110) H Lipase 259 U/L (< 60) H Assessment Post-op Diagnosis anastomosis leakage Plan Additional Comments cristy & drain was removed EDWIN NOGUEIRA Aug 14, 2016 13:15
--- NOTE | 2016-08-14 13:38 | General Progress Note ---
Assessment/Plan Status: stable Assessment/Plan status: Septic Shock leading to acute renal failure- Cr peaked 4.8 now down to 2.6 Abdominal Surgery 07/26/16 then again 05/27 and revision 08/02 Plan; remains on TPN on flomax- on lopressor on TPN post op care- Antibiotics- Protonix IV monitor renal parameters- per GI / Surgeon Favor transfusion as needed Subjective ROS Limited/Unobtainable: No Constitutional: Reports: malaise Allergies: Coded Allergies: No Known Allergies (Unverified , 07/26/16) Objective Last 24 Hour Vital Signs Date Time Temp Pulse Resp B/P Pulse Ox O2 Delivery O2 Flow Rate FiO2 08/14/16 13:25 97.0 74 20 155/92 100 Room Air 08/14/16 11:52 96.8 73 21 145/101 100 Room Air 08/14/16 10:35 97.0 66 19 146/96 100 Room Air 08/14/16 10:20 97.7 71 18 155/101 100 Room Air 08/14/16 09:49 74 159/96 08/14/16 08:04 98.4 74 20 159/96 99 Room Air 08/14/16 04:00 96.8 80 20 156/96 99 Room Air 08/14/16 00:00 98.2 69 18 147/96 99 Room Air 08/13/16 20:50 77 155/99 08/13/16 20:23 98.2 77 18 155/99 100 Room Air 08/13/16 16:01 97.5 70 19 150/98 99 Room Air Intake and Output 08/13/16 08/14/16 19:00 07:00 Intake Total 480 ml 1590.0 ml Output Total 440 ml 900 ml Balance 40 ml 690.0 ml Intake Oral 480 ml 480 ml IV Total 1110.0 ml Output Urine Total 440 ml 900 ml # Voids 3 1 # Bowel Movements 2 Laboratory Tests 08/14/16 04:30: White Blood Count 12.0H, Red Blood Count 2.68L, Hemoglobin 7.9L, Hematocrit 24.2L, Mean Corpuscular Volume 91, Mean Corpuscular Hemoglobin 29.7, Mean Corpuscular Hemoglobin Concent 32.8, Red Cell Distribution Width 13.5, Platelet Count 296, Mean Platelet Volume 7.3, Neutrophils (%) (Auto) , Lymphocytes (%) ( Auto) , Monocytes (%) (Auto) , Eosinophils (%) (Auto) , Basophils (%) (Auto) , Differential Total Cells Counted 100, Neutrophils % (Manual) 72, Lymphocytes % ( Manual) 13L, Monocytes % (Manual) 10, Eosinophils % (Manual) 5H, Basophils % ( Manual) 0, Band Neutrophils 0, Platelet Estimate Adequate, Platelet Morphology Normal, Hypochromasia 1+, Sodium Level 137, Potassium Level 4.1, Chloride Level 98, Carbon Dioxide Level 23, Anion Gap 16H, Blood Urea Nitrogen 26H, Creatinine 2.5H, Estimat Glomerular Filtration Rate 26.0, Glucose Level 163H, Calcium Level 8.1L, Total Bilirubin 1.0, Aspartate Amino Transf (AST/SGOT) 44H, Alanine Aminotransferase (ALT/SGPT) 59H, Alkaline Phosphatase 190H, C-Reactive Protein, Quantitative 1.3H, Total Protein 6.6, Albumin 2.9L, Globulin 3.7, Albumin/ Globulin Ratio 0.7L, Amylase Level 202H, Lipase 259H General Appearance: no apparent distress Cardiovascular: regular rhythm Respiratory/Chest: decreased breath sounds Abdomen: distended Objective no other changes in PE REBECCA SCHULTE Aug 14, 2016 13:38
[2016-08-14] MEDS: Fluconazole 200mg/100ml (Pre-Mix) IV SCH (13:41)
[2016-08-14] MEDS: Simethicone 80mg tab NG PRN (16:29)
--- NOTE | 2016-08-14 17:32 | Infectious Diseases Prog Note ---
Assessment/Plan Problems: (1) Septic shock Assessment & Plan: improving , S/P 3 EXP LAP, due to anastomosis leak , S/P revision , improving on zyvox, zosyn and fluconazol, repeated blood culture is negative , UA is negative for infection and CXR showed atelactasis , will continue current antibiotics regimen for now until WBC is normal , and monitor WBC off antibiotics . stool for C diff is negative , abdominal fluids culture showed no growth. (2) SBO (small bowel obstruction) Assessment & Plan: S/P EXP LAP X 3 ,due to anastomosis leak , has ileus post OP, now with persistent abdominal pain, started on TPN, tolerated liquid diet, general surgery is following (3) Abdominal pain Assessment & Plan: improving, surgery is following, encourage walking (4) MIGNON (acute kidney injury) Assessment & Plan: improving, due to sepsis and hypotension, continue IVF, titrate to keep SBP >100, renal is following (5) Ileus Assessment & Plan: improving, due to repeated EXP LAP, continue IVF, encourage walking , surgery is following Subjective Gastrointestinal/Abdominal: Reports: bloating, other - abdominal pain with pressure Musculoskeletal: Reports: pain Allergies: Coded Allergies: No Known Allergies (Unverified , 07/26/16) Subjective had no bowel movement today , no fever or chills, no cough or SOB.stables and drainage were removed, on TPN Objective Vital Signs Last 24 Hour Vital Signs Date Time Temp Pulse Resp B/P Pulse Ox O2 Delivery O2 Flow Rate FiO2 08/14/16 16:15 98.2 79 20 166/97 99 Room Air 08/14/16 15:58 98.2 79 20 99 Room Air 08/14/16 13:25 97.0 74 20 155/92 100 Room Air 08/14/16 11:52 96.8 73 21 145/101 100 Room Air 08/14/16 10:35 97.0 66 19 146/96 100 Room Air 08/14/16 10:20 97.7 71 18 155/101 100 Room Air 08/14/16 09:49 74 159/96 08/14/16 08:04 98.4 74 20 159/96 99 Room Air 08/14/16 04:00 96.8 80 20 156/96 99 Room Air 08/14/16 00:00 98.2 69 18 147/96 99 Room Air 08/13/16 20:50 77 155/99 08/13/16 20:23 98.2 77 18 155/99 100 Room Air General Appearance: WD/WN, no acute distress HEENT: normocephalic, atraumatic, anicteric, mucous membranes moist Respiratory/Chest: chest wall non-tender, lungs clear, normal breath sounds, no respiratory distress, no accessory muscle use Cardiovascular: normal peripheral pulses, normal rate, regular rhythm, no gallop/murmur, no JVD Abdomen: no organomegaly, no mass, hypoactive bowel sounds, distended, tender, other - midline surgical wound, intact with no draiange, right side two wounds due to previous surgical drainage Extremities: no cyanosis, no clubbing Laboratory Tests Test 08/14/16 04:30 White Blood Count 12.0 K/UL (4.8-10.8) H Red Blood Count 2.68 M/UL (4.70-6.10) L Hemoglobin 7.9 G/DL (14.2-18.0) L Hematocrit 24.2 % (42.0-52.0) L Mean Corpuscular Volume 91 FL (80-99) Mean Corpuscular Hemoglobin 29.7 PG (27.0-31.0) Mean Corpuscular Hemoglobin Concent 32.8 G/DL (32.0-36.0) Red Cell Distribution Width 13.5 % (11.6-14.8) Platelet Count 296 K/UL (150-450) Mean Platelet Volume 7.3 FL (6.5-10.1) Neutrophils (%) (Auto) % (45.0-75.0) Lymphocytes (%) (Auto) % (20.0-45.0) Monocytes (%) (Auto) % (1.0-10.0) Eosinophils (%) (Auto) % (0.0-3.0) Basophils (%) (Auto) % (0.0-2.0) Differential Total Cells Counted 100 Neutrophils % (Manual) 72 % (45-75) Lymphocytes % (Manual) 13 % (20-45) L Monocytes % (Manual) 10 % (1-10) Eosinophils % (Manual) 5 % (0-3) H Basophils % (Manual) 0 % (0-2) Band Neutrophils 0 % (0-8) Platelet Estimate Adequate Platelet Morphology Normal Hypochromasia 1+ Sodium Level 137 mEQ/L (135-145) Potassium Level 4.1 mEQ/L (3.4-4.9) Chloride Level 98 mEQ/L (98-107) Carbon Dioxide Level 23 mEQ/L (20-30) Anion Gap 16 (5-15) H Blood Urea Nitrogen 26 mg/dL (7-23) H Creatinine 2.5 mg/dL (0.7-1.2) H Estimat Glomerular Filtration Rate 26.0 mL/min (>60) Glucose Level 163 mg/dL (74-106) H Calcium Level 8.1 mg/dL (8.6-10.2) L Total Bilirubin 1.0 mg/dL (0.0-1.2) Aspartate Amino Transf (AST/SGOT) 44 U/L (5-40) H Alanine Aminotransferase (ALT/SGPT) 59 U/L (3-41) H Alkaline Phosphatase 190 U/L (40-129) H C-Reactive Protein, Quantitative 1.3 mg/dL (< 0.5) H Total Protein 6.6 g/dL (6.6-8.7) Albumin 2.9 g/dL (3.5-5.2) L Globulin 3.7 g/dL Albumin/Globulin Ratio 0.7 (1.0-2.7) L Amylase Level 202 U/L (10-110) H Lipase 259 U/L (< 60) H Current Medications Medications (Trade) Dose Ordered Sig/Arti Route PRN Reason Start Time Stop Time Status Last Admin Dose Admin Acetaminophen (Tylenol) 650 mg Q4H PRN RECTAL FEVER>100.5 08/03/16 19:00 09/02/16 18:59 Dextrose (D10w) 1,000 ml @ 0 mls/hr Q24H PRN IV PN interrupted or unavailable 08/03/16 21:00 09/02/16 20:59 Dextrose (Dextrose 50%) STAT PRN IV Hypoglycemia 08/03/16 19:00 09/02/16 18:59 Enoxaparin Sodium (Lovenox) 30 mg DAILY SUBQ 08/04/16 09:00 09/03/16 08:59 08/14/16 09:55 Fat Emulsion Intravenous/Amino Acids/ Electrolytes/ Dextrose (Intralipids/Tpn) 1,200 ml @ 50 mls/hr Q24H IV 08/12/16 21:00 09/11/16 20:59 08/13/16 22:08 Fluconazole/ Sodium Chloride (Diflucan 200mg/ 100ml Premix) 100 ml @ 100 mls/hr Q24H IV 08/14/16 12:00 08/21/16 11:59 08/14/16 13:41 Insulin Aspart (NovoLOG) No Dose Q6HR SUBQ 08/04/16 00:00 09/03/16 00:00 08/14/16 11:31 Linezolid 300 ml @ 300 mls/hr Q12HR@0600,1800 IVPB 08/09/16 18:00 08/16/16 17:59 08/14/16 05:12 Metoprolol Tartrate (Lopressor) 50 mg Q12HR ORAL 08/08/16 21:00 09/07/16 20:59 08/14/16 09:49 Neomycin/ Polymyxin/ Bacitracin (Neosporin Oint 15gm) 1 applic BIDPRN PRN TOPIC apply areas where JPs removed 08/14/16 13:15 09/13/16 13:14 08/14/16 14:32 Ondansetron HCl (Zofran) 4 mg Q6H PRN IVP Nausea & Vomiting 08/03/16 19:10 09/02/16 19:09 Pantoprazole (Protonix) 40 mg DAILY IVP 08/04/16 09:00 09/03/16 08:59 08/14/16 09:50 Piperacillin Sod/ Tazobactam Sod 3.375 gm/Dextrose 110 ml @ 27.5 mls/hr EVERY 8 HOURS IVPB 08/10/16 14:00 08/17/16 13:59 08/14/16 13:42 Simethicone (Mylicon) 80 mg QIDPRN PRN NG GAS PAIN 08/03/16 19:00 09/02/16 18:59 08/14/16 16:29 Tamsulosin HCl 0.4 mg 0.4 mg BID ORAL 08/08/16 18:00 09/07/16 17:59 08/14/16 09:49 Tramadol HCl 50 mg 50 mg Q4H PRN ORAL For Pain 08/12/16 12:15 08/19/16 12:14 Piyush Harris M.D. Aug 14, 2016 17:32
--- NOTE | 2016-08-14 19:07 | General Progress Note ---
Assessment/Plan Assessment/Plan ASSESSMENT: 1. Leukocytosis Likely 2/2 underlying sepsis vs reactive. Has improved 2. Small bowel obstruction. status post 3rd exploratory laparotomy; s/p resection gangrene 3. Anemia 2/2 chronic disease, does not require iron, potential slow bleed but unlikely 4. Sepsis, likely contributing to leukocytosis 5. Abdominal pain due to small bowel obstruction 6. Thrombocytopenia - has improved RECOMMENDATIONS: 1. Monitor counts 2. Does not need require iron 3. Follow up on surgery, GI, ID recs 5. Transfuse to goal hgb >7 6. DVT ppx lovenox 7. GI ppx ppi 8. DW staff Thank you, Andrew Mendez MD Subjective Constitutional: Reports: no symptoms HEENT: Reports: no symptoms Cardiovascular: Reports: no symptoms Respiratory: Reports: no symptoms Gastrointestinal/Abdominal: Reports: poor appetite Genitourinary: Reports: no symptoms 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: Reports: no symptoms Endocrine: Reports: no symptoms Hematologic/Lymphatic: Reports: anemia Allergies: Coded Allergies: No Known Allergies (Unverified , 07/26/16) Subjective no bleeding reported, no hematochezia or hematemesis Objective Last 24 Hour Vital Signs Date Time Temp Pulse Resp B/P Pulse Ox O2 Delivery O2 Flow Rate FiO2 08/14/16 18:52 79 166/97 08/14/16 16:15 98.2 79 20 166/97 99 Room Air 08/14/16 15:58 98.2 79 20 99 Room Air 08/14/16 13:25 97.0 74 20 155/92 100 Room Air 08/14/16 11:52 96.8 73 21 145/101 100 Room Air 08/14/16 10:35 97.0 66 19 146/96 100 Room Air 08/14/16 10:20 97.7 71 18 155/101 100 Room Air 08/14/16 09:49 74 159/96 08/14/16 08:04 98.4 74 20 159/96 99 Room Air 08/14/16 04:00 96.8 80 20 156/96 99 Room Air 08/14/16 00:00 98.2 69 18 147/96 99 Room Air 08/13/16 20:50 77 155/99 08/13/16 20:23 98.2 77 18 155/99 100 Room Air Intake and Output 08/13/16 08/14/16 19:00 07:00 Intake Total 480 ml 1590.0 ml Output Total 440 ml 900 ml Balance 40 ml 690.0 ml Intake Oral 480 ml 480 ml IV Total 1110.0 ml Output Urine Total 440 ml 900 ml # Voids 3 1 # Bowel Movements 2 Laboratory Tests 08/14/16 04:30: White Blood Count 12.0H, Red Blood Count 2.68L, Hemoglobin 7.9L, Hematocrit 24.2L, Mean Corpuscular Volume 91, Mean Corpuscular Hemoglobin 29.7, Mean Corpuscular Hemoglobin Concent 32.8, Red Cell Distribution Width 13.5, Platelet Count 296, Mean Platelet Volume 7.3, Neutrophils (%) (Auto) , Lymphocytes (%) ( Auto) , Monocytes (%) (Auto) , Eosinophils (%) (Auto) , Basophils (%) (Auto) , Differential Total Cells Counted 100, Neutrophils % (Manual) 72, Lymphocytes % ( Manual) 13L, Monocytes % (Manual) 10, Eosinophils % (Manual) 5H, Basophils % ( Manual) 0, Band Neutrophils 0, Platelet Estimate Adequate, Platelet Morphology Normal, Hypochromasia 1+, Sodium Level 137, Potassium Level 4.1, Chloride Level 98, Carbon Dioxide Level 23, Anion Gap 16H, Blood Urea Nitrogen 26H, Creatinine 2.5H, Estimat Glomerular Filtration Rate 26.0, Glucose Level 163H, Calcium Level 8.1L, Total Bilirubin 1.0, Aspartate Amino Transf (AST/SGOT) 44H, Alanine Aminotransferase (ALT/SGPT) 59H, Alkaline Phosphatase 190H, C-Reactive Protein, Quantitative 1.3H, Total Protein 6.6, Albumin 2.9L, Globulin 3.7, Albumin/ Globulin Ratio 0.7L, Amylase Level 202H, Lipase 259H General Appearance: no apparent distress EENT: pharynx normal Neck: normal alignment Cardiovascular: no gallop/murmur Respiratory/Chest: normal breath sounds Abdomen: non tender Extremities: non-tender Edema: 1+ Leg (L), 1+ Leg (R) Neurologic: alert Skin: warm/dry Andrew Mendez Aug 14, 2016 19:07
--- NOTE | 2016-08-14 19:22 | General Progress Note ---
Assessment/Plan Assessment/Plan (1) Small bowel obstruction (2) Intractable abdominal pain (3) Gangrene of the small bowel (4) S/p Exploratory Laparotomy resection of the small bowel with primary anastomosis Pt will be continued on Tramadol as needed. Pt was d/w Dr. Aguirre and he concurred. Subjective Date patient seen: Aug 14, 2016 Time patient seen: 07:00 - am Allergies: Coded Allergies: No Known Allergies (Unverified , 07/26/16) Subjective Constitutional: Reports: weakness, Denies: chills, diaphoresis, fever, malaise HEENT: Denies: blurred vision, double vision, ear discharge, ear pain, eye pain , mouth pain, mouth swelling, nose congestion, nose pain, tearing, throat pain, throat swelling Cardiovascular: Denies: chest pain, edema, irregular heart rate, lightheadedness, palpitations, syncope Respiratory: Denies: SOB at rest, SOB with exertion, cough, orthopnea, sputum, stridor, wheezing Gastrointestinal/Abdominal: Reports: abdominal pain Denies: black stools, blood in stool, constipated, diarrhea, difficulty swallowing, poor appetite, poor fluid intake, rectal bleeding, tarry stools, vomiting Genitourinary: Denies: burning, discharge, flank pain, frequency, hematuria, incontinence, pain, urgency 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: Reports: weakness, Denies: anxiety, depressed, emotional problems, headache, numbness, paresthesia, pre-existing deficit, seizure, tingling, tremors Endocrine: Denies: excessive sweating, flushing, increased hunger, increased thirst, increased urine, intolerance to cold, intolerance to heat, unexplained weight gain, unexplained weight loss Hematologic/Lymphatic: Denies: anemia, easy bleeding, easy bruising Subjective Pts is lying in bed, daughter at bedside. Pain is tolerable 3/10 at this time. Objective Last 24 Hour Vital Signs Date Time Temp Pulse Resp B/P Pulse Ox O2 Delivery O2 Flow Rate FiO2 08/14/16 18:52 79 166/97 08/14/16 16:15 98.2 79 20 166/97 99 Room Air 08/14/16 15:58 98.2 79 20 99 Room Air 08/14/16 13:25 97.0 74 20 155/92 100 Room Air 08/14/16 11:52 96.8 73 21 145/101 100 Room Air 08/14/16 10:35 97.0 66 19 146/96 100 Room Air 08/14/16 10:20 97.7 71 18 155/101 100 Room Air 08/14/16 09:49 74 159/96 08/14/16 08:04 98.4 74 20 159/96 99 Room Air 08/14/16 04:00 96.8 80 20 156/96 99 Room Air 08/14/16 00:00 98.2 69 18 147/96 99 Room Air 08/13/16 20:50 77 155/99 08/13/16 20:23 98.2 77 18 155/99 100 Room Air Intake and Output 08/13/16 08/14/16 19:00 07:00 Intake Total 480 ml 1590.0 ml Output Total 440 ml 900 ml Balance 40 ml 690.0 ml Intake Oral 480 ml 480 ml IV Total 1110.0 ml Output Urine Total 440 ml 900 ml # Voids 3 1 # Bowel Movements 2 Laboratory Tests 08/14/16 04:30: White Blood Count 12.0H, Red Blood Count 2.68L, Hemoglobin 7.9L, Hematocrit 24.2L, Mean Corpuscular Volume 91, Mean Corpuscular Hemoglobin 29.7, Mean Corpuscular Hemoglobin Concent 32.8, Red Cell Distribution Width 13.5, Platelet Count 296, Mean Platelet Volume 7.3, Neutrophils (%) (Auto) , Lymphocytes (%) ( Auto) , Monocytes (%) (Auto) , Eosinophils (%) (Auto) , Basophils (%) (Auto) , Differential Total Cells Counted 100, Neutrophils % (Manual) 72, Lymphocytes % ( Manual) 13L, Monocytes % (Manual) 10, Eosinophils % (Manual) 5H, Basophils % ( Manual) 0, Band Neutrophils 0, Platelet Estimate Adequate, Platelet Morphology Normal, Hypochromasia 1+, Sodium Level 137, Potassium Level 4.1, Chloride Level 98, Carbon Dioxide Level 23, Anion Gap 16H, Blood Urea Nitrogen 26H, Creatinine 2.5H, Estimat Glomerular Filtration Rate 26.0, Glucose Level 163H, Calcium Level 8.1L, Total Bilirubin 1.0, Aspartate Amino Transf (AST/SGOT) 44H, Alanine Aminotransferase (ALT/SGPT) 59H, Alkaline Phosphatase 190H, C-Reactive Protein, Quantitative 1.3H, Total Protein 6.6, Albumin 2.9L, Globulin 3.7, Albumin/ Globulin Ratio 0.7L, Amylase Level 202H, Lipase 259H Objective General Appearance: alert EENT: PERRL/EOMI Neck: non-tender, supple Cardiovascular: normal rate, regular rhythm Respiratory/Chest: lungs clear Abdomen: other - tenderness to palpation Extremities: normal inspection Neurologic: alert, responsive Skin: warm/dry SHA BOSE Aug 14, 2016 19:22
--- NOTE | 2016-08-14 20:06 | Cardiac Electrophysiology PN ---
Assessment/Plan Assessment/Plan 1. Elevated troponin due to demand ischemia and renal failure.No chest pain. ECG non ischemic and Echo NL EF.On Lopressor. 2. S/P Septic shock due to small bowel obstruction and gangrene. Off pressors.On iv fluid and antibiotics. WBC 12. 3. HTN. Increased Lopressor to 50 bid and Norvasc 5 mg added. Avoid ACEI or ARB for renal failure 4. Small bowel obstruction status post laparotomy and small bowel resection. S/ P 3rd surgery on 08/02/16. 5. Respiratory failure. 6. Renal failure, creatinine 2.5 DW RN Subjective Subjective No chest pain or SOB.Now on Regular diet. Had HTN earlier.Still on TPN. JPs removed today. Objective Last 24 Hour Vital Signs Date Time Temp Pulse Resp B/P Pulse Ox O2 Delivery O2 Flow Rate FiO2 08/14/16 18:52 79 166/97 08/14/16 16:15 98.2 79 20 166/97 99 Room Air 08/14/16 15:58 98.2 79 20 99 Room Air 08/14/16 13:25 97.0 74 20 155/92 100 Room Air 08/14/16 11:52 96.8 73 21 145/101 100 Room Air 08/14/16 10:35 97.0 66 19 146/96 100 Room Air 08/14/16 10:20 97.7 71 18 155/101 100 Room Air 08/14/16 09:49 74 159/96 08/14/16 08:04 98.4 74 20 159/96 99 Room Air 08/14/16 04:00 96.8 80 20 156/96 99 Room Air 08/14/16 00:00 98.2 69 18 147/96 99 Room Air 08/13/16 20:50 77 155/99 08/13/16 20:23 98.2 77 18 155/99 100 Room Air Intake and Output 08/13/16 08/14/16 19:00 07:00 Intake Total 480 ml 1590.0 ml Output Total 440 ml 900 ml Balance 40 ml 690.0 ml Intake Oral 480 ml 480 ml IV Total 1110.0 ml Output Urine Total 440 ml 900 ml # Voids 3 1 # Bowel Movements 2 Laboratory Tests Test 08/14/16 04:30 White Blood Count 12.0 K/UL (4.8-10.8) H Red Blood Count 2.68 M/UL (4.70-6.10) L Hemoglobin 7.9 G/DL (14.2-18.0) L Hematocrit 24.2 % (42.0-52.0) L Mean Corpuscular Volume 91 FL (80-99) Mean Corpuscular Hemoglobin 29.7 PG (27.0-31.0) Mean Corpuscular Hemoglobin Concent 32.8 G/DL (32.0-36.0) Red Cell Distribution Width 13.5 % (11.6-14.8) Platelet Count 296 K/UL (150-450) Mean Platelet Volume 7.3 FL (6.5-10.1) Neutrophils (%) (Auto) % (45.0-75.0) Lymphocytes (%) (Auto) % (20.0-45.0) Monocytes (%) (Auto) % (1.0-10.0) Eosinophils (%) (Auto) % (0.0-3.0) Basophils (%) (Auto) % (0.0-2.0) Differential Total Cells Counted 100 Neutrophils % (Manual) 72 % (45-75) Lymphocytes % (Manual) 13 % (20-45) L Monocytes % (Manual) 10 % (1-10) Eosinophils % (Manual) 5 % (0-3) H Basophils % (Manual) 0 % (0-2) Band Neutrophils 0 % (0-8) Platelet Estimate Adequate Platelet Morphology Normal Hypochromasia 1+ Sodium Level 137 mEQ/L (135-145) Potassium Level 4.1 mEQ/L (3.4-4.9) Chloride Level 98 mEQ/L (98-107) Carbon Dioxide Level 23 mEQ/L (20-30) Anion Gap 16 (5-15) H Blood Urea Nitrogen 26 mg/dL (7-23) H Creatinine 2.5 mg/dL (0.7-1.2) H Estimat Glomerular Filtration Rate 26.0 mL/min (>60) Glucose Level 163 mg/dL (74-106) H Calcium Level 8.1 mg/dL (8.6-10.2) L Total Bilirubin 1.0 mg/dL (0.0-1.2) Aspartate Amino Transf (AST/SGOT) 44 U/L (5-40) H Alanine Aminotransferase (ALT/SGPT) 59 U/L (3-41) H Alkaline Phosphatase 190 U/L (40-129) H C-Reactive Protein, Quantitative 1.3 mg/dL (< 0.5) H Total Protein 6.6 g/dL (6.6-8.7) Albumin 2.9 g/dL (3.5-5.2) L Globulin 3.7 g/dL Albumin/Globulin Ratio 0.7 (1.0-2.7) L Amylase Level 202 U/L (10-110) H Lipase 259 U/L (< 60) H Objective HEAD AND NECK: No JVD. LUNGS: Clear CARDIOVASCULAR: Nl S1 and S2 with no gallop or murmur. ABDOMEN: Post median laparotomy. Drains removed. EXTREMITIES: No pitting edema. HONEY DUKE Aug 14, 2016 20:06
[2016-08-14] MEDS ORDERED: TPN IV SCH (21:00)
[2016-08-14] MEDS ORDERED: FAT EMULSION 20% IV SCH (21:00)
--- NOTE | 2016-08-14 22:50 | Pulmonology Progress Note ---
Assessment/Plan Problems: (1) SBO (small bowel obstruction) (2) MIGNON (acute kidney injury) (3) Ileus (4) Enteritis (5) Non-ST elevation (NSTEMI) myocardial infarction Assessment/Plan improving, had a large BM on Diflucan, Linezolid, zosyn wbc decreasing, s lcontinue antibiotics check electrolytes advance diet dvt prophylaxis pt/ot dc planning Subjective ROS Limited/Unobtainable: No Constitutional: Reports: no symptoms Allergies: Coded Allergies: No Known Allergies (Unverified , 07/26/16) All Systems: reviewed and negative except above Objective Last 24 Hour Vital Signs Date Time Temp Pulse Resp B/P Pulse Ox O2 Delivery O2 Flow Rate FiO2 08/14/16 21:48 77 156/96 08/14/16 20:00 98.1 77 19 156/96 98 Room Air 08/14/16 18:52 79 166/97 08/14/16 16:15 98.2 79 20 166/97 99 Room Air 08/14/16 15:58 98.2 79 20 99 Room Air 08/14/16 13:25 97.0 74 20 155/92 100 Room Air 08/14/16 11:52 96.8 73 21 145/101 100 Room Air 08/14/16 10:35 97.0 66 19 146/96 100 Room Air 08/14/16 10:20 97.7 71 18 155/101 100 Room Air 08/14/16 09:49 74 159/96 08/14/16 08:04 98.4 74 20 159/96 99 Room Air 08/14/16 04:00 96.8 80 20 156/96 99 Room Air 08/14/16 00:00 98.2 69 18 147/96 99 Room Air Intake and Output 08/13/16 08/14/16 19:00 07:00 Intake Total 480 ml 1590.0 ml Output Total 440 ml 900 ml Balance 40 ml 690.0 ml Intake Oral 480 ml 480 ml IV Total 1110.0 ml Output Urine Total 440 ml 900 ml # Voids 3 1 # Bowel Movements 2 General Appearance: WD/WN HEENT: normocephalic Respiratory/Chest: chest wall non-tender Cardiovascular: normal peripheral pulses Abdomen: soft, non tender Extremities: no clubbing Skin: no ulcers 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: no motor/sensory deficits Laboratory Tests 08/14/16 04:30: White Blood Count 12.0H, Red Blood Count 2.68L, Hemoglobin 7.9L, Hematocrit 24.2L, Mean Corpuscular Volume 91, Mean Corpuscular Hemoglobin 29.7, Mean Corpuscular Hemoglobin Concent 32.8, Red Cell Distribution Width 13.5, Platelet Count 296, Mean Platelet Volume 7.3, Neutrophils (%) (Auto) , Lymphocytes (%) ( Auto) , Monocytes (%) (Auto) , Eosinophils (%) (Auto) , Basophils (%) (Auto) , Differential Total Cells Counted 100, Neutrophils % (Manual) 72, Lymphocytes % ( Manual) 13L, Monocytes % (Manual) 10, Eosinophils % (Manual) 5H, Basophils % ( Manual) 0, Band Neutrophils 0, Platelet Estimate Adequate, Platelet Morphology Normal, Hypochromasia 1+, Sodium Level 137, Potassium Level 4.1, Chloride Level 98, Carbon Dioxide Level 23, Anion Gap 16H, Blood Urea Nitrogen 26H, Creatinine 2.5H, Estimat Glomerular Filtration Rate 26.0, Glucose Level 163H, Calcium Level 8.1L, Total Bilirubin 1.0, Aspartate Amino Transf (AST/SGOT) 44H, Alanine Aminotransferase (ALT/SGPT) 59H, Alkaline Phosphatase 190H, C-Reactive Protein, Quantitative 1.3H, Total Protein 6.6, Albumin 2.9L, Globulin 3.7, Albumin/ Globulin Ratio 0.7L, Amylase Level 202H, Lipase 259H Current Medications Medications (Trade) Dose Ordered Sig/Arti Route PRN Reason Start Time Stop Time Status Last Admin Dose Admin Acetaminophen (Tylenol) 650 mg Q4H PRN RECTAL FEVER>100.5 08/03/16 19:00 09/02/16 18:59 Amlodipine Besylate (Norvasc) 5 mg DAILY ORAL 08/15/16 09:00 09/14/16 08:59 Dextrose (D10w) 1,000 ml @ 0 mls/hr Q24H PRN IV PN interrupted or unavailable 08/03/16 21:00 09/02/16 20:59 Dextrose (Dextrose 50%) STAT PRN IV Hypoglycemia 08/03/16 19:00 09/02/16 18:59 Enoxaparin Sodium (Lovenox) 30 mg DAILY SUBQ 08/04/16 09:00 09/03/16 08:59 08/14/16 09:55 Fat Emulsion Intravenous/Amino Acids/ Electrolytes/ Dextrose (Intralipids/Tpn) 1,200 ml @ 50 mls/hr Q24H IV 08/14/16 21:00 09/13/16 20:59 08/14/16 21:48 Fluconazole/ Sodium Chloride (Diflucan 200mg/ 100ml Premix) 100 ml @ 100 mls/hr Q24H IV 08/14/16 12:00 08/21/16 11:59 08/14/16 13:41 Insulin Aspart (NovoLOG) No Dose Q6HR SUBQ 08/04/16 00:00 09/03/16 00:00 08/14/16 18:22 Linezolid 300 ml @ 300 mls/hr Q12HR@0600,1800 IVPB 08/09/16 18:00 08/16/16 17:59 08/14/16 18:21 Metoprolol Tartrate (Lopressor) 50 mg Q12HR ORAL 08/08/16 21:00 09/07/16 20:59 08/14/16 21:48 Neomycin/ Polymyxin/ Bacitracin 1 applic 1 applic BIDPRN PRN TOPIC apply areas where JPs removed 08/14/16 13:15 09/13/16 13:14 08/14/16 14:32 Ondansetron HCl (Zofran) 4 mg Q6H PRN IVP Nausea & Vomiting 08/03/16 19:10 09/02/16 19:09 Pantoprazole (Protonix) 40 mg DAILY IVP 08/04/16 09:00 09/03/16 08:59 08/14/16 09:50 Piperacillin Sod/ Tazobactam Sod/ Dextrose (Zosyn/D5W) 110 ml @ 27.5 mls/hr EVERY 8 HOURS IVPB 08/10/16 14:00 08/17/16 13:59 08/14/16 21:48 Simethicone (Mylicon) 80 mg QIDPRN PRN NG GAS PAIN 08/03/16 19:00 09/02/16 18:59 08/14/16 16:29 Tamsulosin HCl 0.4 mg 0.4 mg BID ORAL 08/08/16 18:00 09/07/16 17:59 08/14/16 18:21 Tramadol HCl 50 mg 50 mg Q4H PRN ORAL For Pain 08/12/16 12:15 08/19/16 12:14 MAIKEL ESPINOSA Aug 14, 2016 22:50
[2016-08-15] VITALS: BP 149/98
[2016-08-15] MEDS: NovoLOG Insulin Flexpen SUBQ SCH ×5 (00:21→23:46)
[2016-08-15 04:00] VITALS: BP 150/91
[2016-08-15] MEDS: Piperacillin/Tazobactam 3.375 GM in D5W 110 ML IVPB SCH ×3 (06:00→22:01)
[2016-08-15 07:15] LABS: BASOPHILS % (AUTO) 1.8 % (0.0-2.0); EOSINOPHILS % (AUTO) 2.8 % (0.0-3.0); LYMPHOCYTES % (AUTO) 8.4 % (20.0-45.0); MEAN CORPUSCULAR HEMOGLOBIN 30.7 PG (27.0-31.0); MEAN CORPUSCULAR HGB CONC 34.1 G/DL (32.0-36.0); MEAN CORPUSCULAR VOLUME 90 FL (80-99); MEAN PLATELET VOLUME 7.2 FL (6.5-10.1); MONOCYTES % (AUTO) 8.9 % (1.0-10.0); NEUTROPHILS % (AUTO) 78.1 % (45.0-75.0); PLATELET COUNT 269 K/UL (150-450); RED BLOOD COUNT 2.81 M/UL (4.70-6.10); RED CELL DISTRIBUTION WIDTH 13.3 % (11.6-14.8); WHITE BLOOD COUNT 11.5 K/UL (4.8-10.8)
[2016-08-15 07:49] LABS: CALCIUM 8.2 mg/dL (8.6-10.2); CREATININE 2.3 mg/dL (0.7-1.2); GLOMERULAR FILTRATION RATE 28.7 mL/min (>60)
[2016-08-15 08:00] VITALS: BP 146/99
[2016-08-15] MEDS: Tamsulosin 0.4mg cap ORAL SCH ×2 (08:09→17:34)
[2016-08-15] MEDS: Pantoprazole Inj IVP SCH (08:10)
[2016-08-15] MEDS: Metoprolol 50mg tab ORAL SCH ×2 (08:10→22:01)
[2016-08-15] MEDS: Enoxaparin 30mg Inj SUBQ SCH (08:15)
--- NOTE | 2016-08-15 08:25 | General Progress Note ---
Assessment/Plan Assessment/Plan (1) Small bowel obstruction (2) Intractable abdominal pain (3) Gangrene of the small bowel (4) S/p Exploratory Laparotomy resection of the small bowel with primary anastomosis Pt will be continued on Tramadol as needed. Pt was d/w Dr. Aguirre and he concurred. Subjective Date patient seen: Aug 15, 2016 Time patient seen: 08:00 - am Allergies: Coded Allergies: No Known Allergies (Unverified , 07/26/16) Subjective Constitutional: Reports: weakness, Denies: chills, diaphoresis, fever, malaise HEENT: Denies: blurred vision, double vision, ear discharge, ear pain, eye pain , mouth pain, mouth swelling, nose congestion, nose pain, tearing, throat pain, throat swelling Cardiovascular: Denies: chest pain, edema, irregular heart rate, lightheadedness, palpitations, syncope Respiratory: Denies: SOB at rest, SOB with exertion, cough, orthopnea, sputum, stridor, wheezing Gastrointestinal/Abdominal: Reports:abdominal pain Denies: black stools, blood in stool, constipated, diarrhea, difficulty swallowing, poor appetite, poor fluid intake, rectal bleeding, tarry stools, vomiting Genitourinary: Denies: burning, discharge, flank pain, frequency, hematuria, incontinence, pain, urgency 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: Reports: weakness, Denies: anxiety, depressed, emotional problems, headache, numbness, paresthesia, pre-existing deficit, seizure, tingling, tremors Endocrine: Denies: excessive sweating, flushing, increased hunger, increased thirst, increased urine, intolerance to cold, intolerance to heat, unexplained weight gain, unexplained weight loss Hematologic/Lymphatic: Denies: anemia, easy bleeding, easy bruising Subjective Pts is lying in bed, His pain has been stable and at a mild level worse with movement and touch. Objective Last 24 Hour Vital Signs Date Time Temp Pulse Resp B/P Pulse Ox O2 Delivery O2 Flow Rate FiO2 08/15/16 08:10 82 149/92 08/15/16 08:09 82 149/92 08/15/16 04:00 98.2 79 18 150/91 99 Room Air 08/15/16 00:00 98.1 77 18 149/98 98 Room Air 08/14/16 21:48 77 156/96 08/14/16 20:00 98.1 77 19 156/96 98 Room Air 08/14/16 18:52 79 166/97 08/14/16 16:15 98.2 79 20 166/97 99 Room Air 08/14/16 15:58 98.2 79 20 99 Room Air 08/14/16 13:25 97.0 74 20 155/92 100 Room Air 08/14/16 11:52 96.8 73 21 145/101 100 Room Air 08/14/16 10:35 97.0 66 19 146/96 100 Room Air 08/14/16 10:20 97.7 71 18 155/101 100 Room Air 08/14/16 09:49 74 159/96 Intake and Output 08/14/16 08/15/16 19:00 07:00 Intake Total 720 ml 1430 ml Output Total 480 ml 2500 ml Balance 240 ml -1070 ml Intake Oral 120 ml 480 ml IV Total 600 ml 950 ml Output Urine Total 480 ml 500 ml Stool Total 2000 ml # Voids 2 1 # Bowel Movements 2 Laboratory Tests 08/15/16 06:00: White Blood Count 11.5H, Red Blood Count 2.81L, Hemoglobin 8.6L, Hematocrit 25.3L, Mean Corpuscular Volume 90, Mean Corpuscular Hemoglobin 30.7, Mean Corpuscular Hemoglobin Concent 34.1, Red Cell Distribution Width 13.3, Platelet Count 269, Mean Platelet Volume 7.2, Neutrophils (%) (Auto) 78.1H, Lymphocytes ( %) (Auto) 8.4L, Monocytes (%) (Auto) 8.9, Eosinophils (%) (Auto) 2.8, Basophils (%) (Auto) 1.8, Sodium Level 138, Potassium Level 4.0, Chloride Level 101, Carbon Dioxide Level 22, Anion Gap 15, Blood Urea Nitrogen 25H, Creatinine 2.3H , Estimat Glomerular Filtration Rate 28.7, Glucose Level 170H, Calcium Level 8.2L, C-Reactive Protein, Quantitative [Pending] Objective General Appearance: alert EENT: PERRL/EOMI Neck: non-tender, supple Cardiovascular: normal rate, regular rhythm Respiratory/Chest: lungs clear Abdomen: other - tenderness to palpation Extremities: normal inspection Neurologic: alert, responsive Skin: warm/dry SHA BOSE N. P.Shaun Aug 15, 2016 08:25
--- NOTE | 2016-08-15 09:48 | Cardiac Electrophysiology PN ---
Assessment/Plan Assessment/Plan 1. Elevated troponin due to demand ischemia and renal failure.No chest pain. ECG non ischemic and Echo NL EF.Continue Lopressor. 2. S/P Septic shock due to small bowel obstruction and gangrene. Off pressors.On iv fluid and antibiotics. WBC 11.5. 3. HTN. Better with Lopressor 50 bid and Norvasc 5 mg. Avoid ACEI or ARB for renal failure 4. Small bowel obstruction status post laparotomy and small bowel resection. S/ P 3rd surgery on 08/02/16. 5. Respiratory failure. 6. Renal failure, creatinine 2.3 today DW RN Subjective Subjective No chest pain or SOB .Still on TPN. JPs removed yesterday. at bedside. Objective Last 24 Hour Vital Signs Date Time Temp Pulse Resp B/P Pulse Ox O2 Delivery O2 Flow Rate FiO2 08/15/16 08:10 82 149/92 08/15/16 08:09 82 149/92 08/15/16 08:00 97.9 76 18 146/99 99 Room Air 08/15/16 04:00 98.2 79 18 150/91 99 Room Air 08/15/16 00:00 98.1 77 18 149/98 98 Room Air 08/14/16 21:48 77 156/96 08/14/16 20:00 98.1 77 19 156/96 98 Room Air 08/14/16 18:52 79 166/97 08/14/16 16:15 98.2 79 20 166/97 99 Room Air 08/14/16 15:58 98.2 79 20 99 Room Air 08/14/16 13:25 97.0 74 20 155/92 100 Room Air 08/14/16 11:52 96.8 73 21 145/101 100 Room Air 08/14/16 10:35 97.0 66 19 146/96 100 Room Air 08/14/16 10:20 97.7 71 18 155/101 100 Room Air 08/14/16 09:49 74 159/96 Intake and Output 08/14/16 08/15/16 19:00 07:00 Intake Total 720 ml 1430 ml Output Total 480 ml 2500 ml Balance 240 ml -1070 ml Intake Oral 120 ml 480 ml IV Total 600 ml 950 ml Output Urine Total 480 ml 500 ml Stool Total 2000 ml # Voids 2 1 # Bowel Movements 2 Laboratory Tests Test 08/15/16 06:00 White Blood Count 11.5 K/UL (4.8-10.8) H Red Blood Count 2.81 M/UL (4.70-6.10) L Hemoglobin 8.6 G/DL (14.2-18.0) L Hematocrit 25.3 % (42.0-52.0) L Mean Corpuscular Volume 90 FL (80-99) Mean Corpuscular Hemoglobin 30.7 PG (27.0-31.0) Mean Corpuscular Hemoglobin Concent 34.1 G/DL (32.0-36.0) Red Cell Distribution Width 13.3 % (11.6-14.8) Platelet Count 269 K/UL (150-450) Mean Platelet Volume 7.2 FL (6.5-10.1) Neutrophils (%) (Auto) 78.1 % (45.0-75.0) H Lymphocytes (%) (Auto) 8.4 % (20.0-45.0) L Monocytes (%) (Auto) 8.9 % (1.0-10.0) Eosinophils (%) (Auto) 2.8 % (0.0-3.0) Basophils (%) (Auto) 1.8 % (0.0-2.0) Sodium Level 138 mEQ/L (135-145) Potassium Level 4.0 mEQ/L (3.4-4.9) Chloride Level 101 mEQ/L (98-107) Carbon Dioxide Level 22 mEQ/L (20-30) Anion Gap 15 (5-15) Blood Urea Nitrogen 25 mg/dL (7-23) H Creatinine 2.3 mg/dL (0.7-1.2) H Estimat Glomerular Filtration Rate 28.7 mL/min (>60) Glucose Level 170 mg/dL (74-106) H Calcium Level 8.2 mg/dL (8.6-10.2) L C-Reactive Protein, Quantitative Pending Objective HEAD AND NECK: No JVD. LUNGS: Clear CARDIOVASCULAR: Nl S1 and S2 with no gallop or murmur. ABDOMEN: Post median laparotomy.Ventura and Drains removed. EXTREMITIES: No pitting edema. HONEY DUKE Aug 15, 2016 09:48
[2016-08-15] MEDS ORDERED: NORVASC5 MG ORAL (10:46)
[2016-08-15] MEDS ORDERED: TYLENOL325 MG ORAL (10:46)
[2016-08-15] MEDS ORDERED: DEXTROSE 50%-WA50 M1 IV (10:47)
[2016-08-15] MEDS ORDERED: LOVENOX10 MG SUBQ (10:48)
[2016-08-15] MEDS ORDERED: INTRALIPID250 ML IV (10:50)
[2016-08-15] MEDS ORDERED: LINEZOLID-600 MG/300 IV (10:52)
[2016-08-15] MEDS ORDERED: NOVOLOG100 UNIT/3 SUBQ (10:52)
[2016-08-15] MEDS ORDERED: METOPROLOL SUCC50 MG ORAL (10:53)
[2016-08-15] MEDS ORDERED: ZOFRAN 4 MG4 MG/2 ML IV (10:53)
[2016-08-15] MEDS ORDERED: TAMSULOSIN HCL0.4 MG ORAL (10:54)
[2016-08-15] MEDS ORDERED: SIMETHICONE80 MG ORAL (10:54)
[2016-08-15] MEDS ORDERED: PROTONIX IV40 MG IV (10:54)
[2016-08-15] MEDS ORDERED: ZOSYN 3.373.375 GM/1 IVPB (10:54)
[2016-08-15] MEDS ORDERED: TRAMADOL HCL50 MG ORAL (10:55)
[2016-08-15] MEDS ORDERED: FLUCONAZOL200 MG/100 IV (10:56)
[2016-08-15] MEDS: Fluconazole 200mg/100ml (Pre-Mix) IV SCH (11:27)
[2016-08-15 11:59] VITALS: BP 143/96
--- NOTE | 2016-08-15 12:49 | General Progress Note ---
Assessment/Plan Problem List: (1) Ileus ICD Codes: K56.7 - Ileus, unspecified SNOMED: 749334140 (2) Sepsis ICD Codes: A41.9 - Sepsis, unspecified organism SNOMED: 96866903 (3) Abdominal pain ICD Codes: R10.9 - Unspecified abdominal pain SNOMED: 29202099 (4) SBO (small bowel obstruction) ICD Codes: K56.69 - Other intestinal obstruction SNOMED: 970566289 (5) Abdominal gas pain ICD Codes: R14.1 - Gas pain SNOMED: 50730260 (6) Enteritis ICD Codes: K52.9 - Noninfective gastroenteritis and colitis, unspecified SNOMED: 92851906 Status: progressing Assessment/Plan tpn afebrile vitlas stable poor appetite s/p bowel gangrene repair needs snf debliitated needs pt/ot Subjective HEENT: Reports: no symptoms Cardiovascular: Reports: no symptoms Gastrointestinal/Abdominal: Reports: abdominal pain Allergies: Coded Allergies: No Known Allergies (Unverified , 07/26/16) Objective Last 24 Hour Vital Signs Date Time Temp Pulse Resp B/P Pulse Ox O2 Delivery O2 Flow Rate FiO2 08/15/16 11:59 97.3 76 18 143/96 99 Room Air 08/15/16 08:10 82 149/92 08/15/16 08:09 82 149/92 08/15/16 08:00 97.9 76 18 146/99 99 Room Air 08/15/16 04:00 98.2 79 18 150/91 99 Room Air 08/15/16 00:00 98.1 77 18 149/98 98 Room Air 08/14/16 21:48 77 156/96 08/14/16 20:00 98.1 77 19 156/96 98 Room Air 08/14/16 18:52 79 166/97 08/14/16 16:15 98.2 79 20 166/97 99 Room Air 08/14/16 15:58 98.2 79 20 99 Room Air 08/14/16 13:25 97.0 74 20 155/92 100 Room Air Intake and Output 08/14/16 08/15/16 19:00 07:00 Intake Total 720 ml 1430 ml Output Total 480 ml 2500 ml Balance 240 ml -1070 ml Intake Oral 120 ml 480 ml IV Total 600 ml 950 ml Output Urine Total 480 ml 500 ml Stool Total 2000 ml # Voids 2 1 # Bowel Movements 2 Laboratory Tests 08/15/16 06:00: White Blood Count 11.5H, Red Blood Count 2.81L, Hemoglobin 8.6L, Hematocrit 25.3L, Mean Corpuscular Volume 90, Mean Corpuscular Hemoglobin 30.7, Mean Corpuscular Hemoglobin Concent 34.1, Red Cell Distribution Width 13.3, Platelet Count 269, Mean Platelet Volume 7.2, Neutrophils (%) (Auto) 78.1H, Lymphocytes ( %) (Auto) 8.4L, Monocytes (%) (Auto) 8.9, Eosinophils (%) (Auto) 2.8, Basophils (%) (Auto) 1.8, Sodium Level 138, Potassium Level 4.0, Chloride Level 101, Carbon Dioxide Level 22, Anion Gap 15, Blood Urea Nitrogen 25H, Creatinine 2.3H , Estimat Glomerular Filtration Rate 28.7, Glucose Level 170H, Calcium Level 8.2L, C-Reactive Protein, Quantitative [Pending] EENT: PERRL/EOMI Neck: supple Cardiovascular: normal rate Respiratory/Chest: lungs clear Abdomen: soft Teo Love MD Aug 15, 2016 12:49
--- NOTE | 2016-08-15 13:35 | General Progress Note ---
Assessment/Plan Status: stable Status Narrative Cr declining- Hgb 8.6 Assessment/Plan status: Septic Shock leading to acute renal failure- Cr peaked 4.8 now down to 2.6 Abdominal Surgery 07/26/16 then again 05/27 and revision 08/02 Plan; remains on TPN on flomax- on lopressor on TPN post op care- Antibiotics- Protonix IV monitor renal parameters- per GI / Surgeon Favor transfusion as needed Subjective ROS Limited/Unobtainable: No Allergies: Coded Allergies: No Known Allergies (Unverified , 07/26/16) Objective Last 24 Hour Vital Signs Date Time Temp Pulse Resp B/P Pulse Ox O2 Delivery O2 Flow Rate FiO2 08/15/16 11:59 97.3 76 18 143/96 99 Room Air 08/15/16 08:10 82 149/92 08/15/16 08:09 82 149/92 08/15/16 08:00 97.9 76 18 146/99 99 Room Air 08/15/16 04:00 98.2 79 18 150/91 99 Room Air 08/15/16 00:00 98.1 77 18 149/98 98 Room Air 08/14/16 21:48 77 156/96 08/14/16 20:00 98.1 77 19 156/96 98 Room Air 08/14/16 18:52 79 166/97 08/14/16 16:15 98.2 79 20 166/97 99 Room Air 08/14/16 15:58 98.2 79 20 99 Room Air Intake and Output 08/14/16 08/15/16 19:00 07:00 Intake Total 720 ml 1480 ml Output Total 480 ml 2500 ml Balance 240 ml -1020 ml Intake Oral 120 ml 480 ml IV Total 600 ml 1000 ml Output Urine Total 480 ml 500 ml Stool Total 2000 ml # Voids 2 1 # Bowel Movements 2 Laboratory Tests 08/15/16 06:00: White Blood Count 11.5H, Red Blood Count 2.81L, Hemoglobin 8.6L, Hematocrit 25.3L, Mean Corpuscular Volume 90, Mean Corpuscular Hemoglobin 30.7, Mean Corpuscular Hemoglobin Concent 34.1, Red Cell Distribution Width 13.3, Platelet Count 269, Mean Platelet Volume 7.2, Neutrophils (%) (Auto) 78.1H, Lymphocytes ( %) (Auto) 8.4L, Monocytes (%) (Auto) 8.9, Eosinophils (%) (Auto) 2.8, Basophils (%) (Auto) 1.8, Sodium Level 138, Potassium Level 4.0, Chloride Level 101, Carbon Dioxide Level 22, Anion Gap 15, Blood Urea Nitrogen 25H, Creatinine 2.3H , Estimat Glomerular Filtration Rate 28.7, Glucose Level 170H, Calcium Level 8.2L, C-Reactive Protein, Quantitative [Pending] General Appearance: no apparent distress Objective no other changes in PE REBECCA SCHULTE Aug 15, 2016 13:35
[2016-08-15] MEDS ORDERED: FAT EMULSION 20% IV SCH ×2 (14:00→21:00)
[2016-08-15] MEDS ORDERED: TPN IV SCH ×2 (14:00→21:00)
--- NOTE | 2016-08-15 14:30 | General Surgery Progress Note ---
General Surgery-Progress Note Subjective Procedure Performed Exploratory Laparotomy and resection of anastomosis with anstomosis of small bowel to colon Symptoms: improved, BM Objective Last 24 Hour Vital Signs Date Time Temp Pulse Resp B/P Pulse Ox O2 Delivery O2 Flow Rate FiO2 08/15/16 11:59 97.3 76 18 143/96 99 Room Air 08/15/16 08:10 82 149/92 08/15/16 08:09 82 149/92 08/15/16 08:00 97.9 76 18 146/99 99 Room Air 08/15/16 04:00 98.2 79 18 150/91 99 Room Air 08/15/16 00:00 98.1 77 18 149/98 98 Room Air 08/14/16 21:48 77 156/96 08/14/16 20:00 98.1 77 19 156/96 98 Room Air 08/14/16 18:52 79 166/97 08/14/16 16:15 98.2 79 20 166/97 99 Room Air 08/14/16 15:58 98.2 79 20 99 Room Air I&O Intake and Output 08/14/16 08/15/16 19:00 07:00 Intake Total 720 ml 1480 ml Output Total 480 ml 2500 ml Balance 240 ml -1020 ml Intake Oral 120 ml 480 ml IV Total 600 ml 1000 ml Output Urine Total 480 ml 500 ml Stool Total 2000 ml # Voids 2 1 # Bowel Movements 2 Wound: clean, intact Drains: none Respiratory: clear Abdomen: soft, flat, non-tender, present bowel sounds Extremities: no tenderness Laboratory Tests Test 08/15/16 06:00 White Blood Count 11.5 K/UL (4.8-10.8) H Red Blood Count 2.81 M/UL (4.70-6.10) L Hemoglobin 8.6 G/DL (14.2-18.0) L Hematocrit 25.3 % (42.0-52.0) L Mean Corpuscular Volume 90 FL (80-99) Mean Corpuscular Hemoglobin 30.7 PG (27.0-31.0) Mean Corpuscular Hemoglobin Concent 34.1 G/DL (32.0-36.0) Red Cell Distribution Width 13.3 % (11.6-14.8) Platelet Count 269 K/UL (150-450) Mean Platelet Volume 7.2 FL (6.5-10.1) Neutrophils (%) (Auto) 78.1 % (45.0-75.0) H Lymphocytes (%) (Auto) 8.4 % (20.0-45.0) L Monocytes (%) (Auto) 8.9 % (1.0-10.0) Eosinophils (%) (Auto) 2.8 % (0.0-3.0) Basophils (%) (Auto) 1.8 % (0.0-2.0) Sodium Level 138 mEQ/L (135-145) Potassium Level 4.0 mEQ/L (3.4-4.9) Chloride Level 101 mEQ/L (98-107) Carbon Dioxide Level 22 mEQ/L (20-30) Anion Gap 15 (5-15) Blood Urea Nitrogen 25 mg/dL (7-23) H Creatinine 2.3 mg/dL (0.7-1.2) H Estimat Glomerular Filtration Rate 28.7 mL/min (>60) Glucose Level 170 mg/dL (74-106) H Calcium Level 8.2 mg/dL (8.6-10.2) L C-Reactive Protein, Quantitative Pending Assessment Post-op Diagnosis anastomosis leakage Plan Additional Comments Per PCP EDWIN NOGUEIRA Aug 15, 2016 14:30
[2016-08-15 15:53] VITALS: BP 142/88
--- NOTE | 2016-08-15 15:56 | Infectious Diseases Prog Note ---
Assessment/Plan Problems: (1) Septic shock Assessment & Plan: improving , S/P 3 EXP LAP, due to anastomosis leak , S/P revision , improving on zyvox, zosyn and fluconazol, repeated blood culture is negative , UA is negative for infection and CXR showed atelactasis , will continue current antibiotics regimen for now , and monitor WBC. stool for C diff is negative , abdominal fluids culture showed no growth. (2) SBO (small bowel obstruction) Assessment & Plan: S/P EXP LAP X 3 due to anastomosis leak , has ileus post OP, now with persistent abdominal pain, started on TPN, tolerated liquid diet, general surgery is following (3) Abdominal pain Assessment & Plan: improving, surgery is following, encourage walking (4) MIGNON (acute kidney injury) Assessment & Plan: improving, due to sepsis and hypotension, continue IVF, titrate to keep SBP >100, renal is following (5) Ileus Assessment & Plan: improving, due to repeated EXP LAP, continue IVF, encourage walking , surgery is following Subjective Allergies: Coded Allergies: No Known Allergies (Unverified , 07/26/16) Subjective had one bowel movement today , tolerated diet well, no fever or chills, no cough or SOB.stables and drainage were removed. Objective Vital Signs Last 24 Hour Vital Signs Date Time Temp Pulse Resp B/P Pulse Ox O2 Delivery O2 Flow Rate FiO2 08/15/16 11:59 97.3 76 18 143/96 99 Room Air 08/15/16 08:10 82 149/92 08/15/16 08:09 82 149/92 08/15/16 08:00 97.9 76 18 146/99 99 Room Air 08/15/16 04:00 98.2 79 18 150/91 99 Room Air 08/15/16 00:00 98.1 77 18 149/98 98 Room Air 08/14/16 21:48 77 156/96 08/14/16 20:00 98.1 77 19 156/96 98 Room Air 08/14/16 18:52 79 166/97 08/14/16 16:15 98.2 79 20 166/97 99 Room Air 08/14/16 15:58 98.2 79 20 99 Room Air General Appearance: WD/WN, no acute distress HEENT: normocephalic, atraumatic, anicteric, mucous membranes moist Respiratory/Chest: chest wall non-tender, lungs clear, normal breath sounds, no respiratory distress, no accessory muscle use Cardiovascular: normal peripheral pulses, normal rate, regular rhythm, no gallop/murmur, no JVD Abdomen: normal bowel sounds, soft, non tender, no organomegaly, non distended , no mass Extremities: no cyanosis, no clubbing Skin: no rash, no lesions, no ulcers Laboratory Tests Test 08/15/16 06:00 White Blood Count 11.5 K/UL (4.8-10.8) H Red Blood Count 2.81 M/UL (4.70-6.10) L Hemoglobin 8.6 G/DL (14.2-18.0) L Hematocrit 25.3 % (42.0-52.0) L Mean Corpuscular Volume 90 FL (80-99) Mean Corpuscular Hemoglobin 30.7 PG (27.0-31.0) Mean Corpuscular Hemoglobin Concent 34.1 G/DL (32.0-36.0) Red Cell Distribution Width 13.3 % (11.6-14.8) Platelet Count 269 K/UL (150-450) Mean Platelet Volume 7.2 FL (6.5-10.1) Neutrophils (%) (Auto) 78.1 % (45.0-75.0) H Lymphocytes (%) (Auto) 8.4 % (20.0-45.0) L Monocytes (%) (Auto) 8.9 % (1.0-10.0) Eosinophils (%) (Auto) 2.8 % (0.0-3.0) Basophils (%) (Auto) 1.8 % (0.0-2.0) Sodium Level 138 mEQ/L (135-145) Potassium Level 4.0 mEQ/L (3.4-4.9) Chloride Level 101 mEQ/L (98-107) Carbon Dioxide Level 22 mEQ/L (20-30) Anion Gap 15 (5-15) Blood Urea Nitrogen 25 mg/dL (7-23) H Creatinine 2.3 mg/dL (0.7-1.2) H Estimat Glomerular Filtration Rate 28.7 mL/min (>60) Glucose Level 170 mg/dL (74-106) H Calcium Level 8.2 mg/dL (8.6-10.2) L C-Reactive Protein, Quantitative Pending Current Medications Medications (Trade) Dose Ordered Sig/Arti Route PRN Reason Start Time Stop Time Status Last Admin Dose Admin Acetaminophen (Tylenol) 650 mg Q4H PRN RECTAL FEVER>100.5 08/03/16 19:00 09/02/16 18:59 Amlodipine Besylate 5 mg 5 mg DAILY ORAL 08/15/16 09:00 09/14/16 08:59 08/15/16 08:09 Dextrose (D10w) 1,000 ml @ 0 mls/hr Q24H PRN IV PN interrupted or unavailable 08/03/16 21:00 09/02/16 20:59 Dextrose (Dextrose 50%) STAT PRN IV Hypoglycemia 08/03/16 19:00 09/02/16 18:59 Dextrose/Sodium Chloride (D10ns) 1,000 ml @ 30 mls/hr Q24H IV 08/15/16 15:45 09/14/16 15:44 UNV Enoxaparin Sodium (Lovenox) 30 mg DAILY SUBQ 08/04/16 09:00 09/03/16 08:59 08/15/16 08:15 Fat Emulsion Intravenous 130 ml/Amino Acids/ Electrolytes/ Dextrose 1,200 ml @ 20 mls/hr Q24H IV 08/16/16 14:00 09/15/16 13:59 UNV Fluconazole/ Sodium Chloride (Diflucan 200mg/ 100ml Premix) 100 ml @ 100 mls/hr Q24H IV 08/14/16 12:00 08/21/16 11:59 08/15/16 11:27 Insulin Aspart (NovoLOG) No Dose Q6HR SUBQ 08/04/16 00:00 09/03/16 00:00 08/15/16 11:34 Linezolid 300 ml @ 300 mls/hr Q12HR@0600,1800 IVPB 08/09/16 18:00 08/16/16 17:59 08/15/16 04:53 Metoprolol Tartrate (Lopressor) 50 mg Q12HR ORAL 08/08/16 21:00 09/07/16 20:59 08/15/16 08:10 Neomycin/ Polymyxin/ Bacitracin (Neosporin Oint 15gm) 1 applic BIDPRN PRN TOPIC apply areas where JPs removed 08/14/16 13:15 09/13/16 13:14 08/14/16 14:32 Ondansetron HCl (Zofran) 4 mg Q6H PRN IVP Nausea & Vomiting 08/03/16 19:10 09/02/16 19:09 Pantoprazole (Protonix) 40 mg DAILY IVP 08/04/16 09:00 09/03/16 08:59 08/15/16 08:10 Piperacillin Sod/ Tazobactam Sod/ Dextrose (Zosyn/D5W) 110 ml @ 27.5 mls/hr EVERY 8 HOURS IVPB 08/10/16 14:00 08/17/16 13:59 08/15/16 13:08 Simethicone (Mylicon) 80 mg QIDPRN PRN NG GAS PAIN 08/03/16 19:00 09/02/16 18:59 08/14/16 16:29 Tamsulosin HCl 0.4 mg 0.4 mg BID ORAL 08/08/16 18:00 09/07/16 17:59 08/15/16 08:09 Tramadol HCl 50 mg 50 mg Q4H PRN ORAL For Pain 08/12/16 12:15 08/19/16 12:14 Piyush Harris M.D. Aug 15, 2016 15:56
[2016-08-15] MEDS ORDERED: Dextrose 10%/0.9% SOD CHL 1,000 ML IV SCH (17:00)
[2016-08-15] MEDS: Dextrose 10%/0.9% SOD CHL 1,000 ML IV SCH (17:35)
[2016-08-15 20:20] VITALS: BP 148/92
--- NOTE | 2016-08-15 20:48 | General Progress Note ---
Assessment/Plan Assessment/Plan Assessment - SBO / gangrene - resected - septic shock - recovered - ATN - improving - abnormal LFT - ? shocked liver, improved - s/p ex lap for anastomotic leak - Leukocytosis - improving - anemia, due to multiple surgeries and blood draws - mild elevated amylase/lipase, likely due to surgery - normal Pancreas on MRI Recommendations po diet transfuse PRN TPN abx PPI follow labs and exam surgical f/u OOB Subjective Allergies: Coded Allergies: No Known Allergies (Unverified , 07/26/16) Subjective patient seen earlier today tolerating PO (+) BM MRI done - no pancreas abnormalities Objective Last 24 Hour Vital Signs Date Time Temp Pulse Resp B/P Pulse Ox O2 Delivery O2 Flow Rate FiO2 08/15/16 20:20 97.9 85 19 148/92 98 Room Air 08/15/16 15:53 97.3 77 19 142/88 100 Room Air 08/15/16 11:59 97.3 76 18 143/96 99 Room Air 08/15/16 08:10 82 149/92 08/15/16 08:09 82 149/92 08/15/16 08:00 97.9 76 18 146/99 99 Room Air 08/15/16 04:00 98.2 79 18 150/91 99 Room Air 08/15/16 00:00 98.1 77 18 149/98 98 Room Air 08/14/16 21:48 77 156/96 Intake and Output 08/14/16 08/15/16 19:00 07:00 Intake Total 720 ml 1480 ml Output Total 480 ml 2500 ml Balance 240 ml -1020 ml Intake Oral 120 ml 480 ml IV Total 600 ml 1000 ml Output Urine Total 480 ml 500 ml Stool Total 2000 ml # Voids 2 1 # Bowel Movements 2 Laboratory Tests 08/15/16 06:00: White Blood Count 11.5H, Red Blood Count 2.81L, Hemoglobin 8.6L, Hematocrit 25.3L, Mean Corpuscular Volume 90, Mean Corpuscular Hemoglobin 30.7, Mean Corpuscular Hemoglobin Concent 34.1, Red Cell Distribution Width 13.3, Platelet Count 269, Mean Platelet Volume 7.2, Neutrophils (%) (Auto) 78.1H, Lymphocytes ( %) (Auto) 8.4L, Monocytes (%) (Auto) 8.9, Eosinophils (%) (Auto) 2.8, Basophils (%) (Auto) 1.8, Sodium Level 138, Potassium Level 4.0, Chloride Level 101, Carbon Dioxide Level 22, Anion Gap 15, Blood Urea Nitrogen 25H, Creatinine 2.3H , Estimat Glomerular Filtration Rate 28.7, Glucose Level 170H, Calcium Level 8.2L, C-Reactive Protein, Quantitative [Pending] Objective WDWN man NCAT supple CTA RR abd less distended, (+)large abd wound trace edema ALVAREZ MARTINEZ Aug 15, 2016 20:48
--- NOTE | 2016-08-15 21:25 | General Progress Note ---
Assessment/Plan Assessment/Plan ASSESSMENT: 1. Leukocytosis Likely 2/2 underlying sepsis vs reactive. Has improved 2. Small bowel obstruction. status post 3rd exploratory laparotomy; s/p resection gangrene 3. Anemia 2/2 chronic disease, does not require iron, potential slow bleed but unlikely 4. Sepsis, likely contributing to leukocytosis 5. Abdominal pain due to sbo 6. Thrombocytopenia - has improved RECOMMENDATIONS: 1. Monitor counts 2. Does not need require iron 3. Follow up on surgery, GI, ID recs 5. Transfuse to goal hgb >7 6. DVT ppx lovenox 7. GI ppx ppi 8. DW staff Thank you, Andrew Mendez MD Subjective Constitutional: Reports: no symptoms HEENT: Reports: no symptoms Cardiovascular: Reports: no symptoms Respiratory: Reports: no symptoms Gastrointestinal/Abdominal: Reports: no symptoms Genitourinary: Reports: no symptoms 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: Reports: no symptoms Endocrine: Reports: no symptoms Hematologic/Lymphatic: Reports: anemia Allergies: Coded Allergies: No Known Allergies (Unverified , 07/26/16) Subjective no bleeding, no hematochezia or hematemesis reported Objective Last 24 Hour Vital Signs Date Time Temp Pulse Resp B/P Pulse Ox O2 Delivery O2 Flow Rate FiO2 08/15/16 20:20 97.9 85 19 148/92 98 Room Air 08/15/16 15:53 97.3 77 19 142/88 100 Room Air 08/15/16 11:59 97.3 76 18 143/96 99 Room Air 08/15/16 08:10 82 149/92 08/15/16 08:09 82 149/92 08/15/16 08:00 97.9 76 18 146/99 99 Room Air 08/15/16 04:00 98.2 79 18 150/91 99 Room Air 08/15/16 00:00 98.1 77 18 149/98 98 Room Air 08/14/16 21:48 77 156/96 Intake and Output 08/14/16 08/15/16 19:00 07:00 Intake Total 720 ml 1480 ml Output Total 480 ml 2500 ml Balance 240 ml -1020 ml Intake Oral 120 ml 480 ml IV Total 600 ml 1000 ml Output Urine Total 480 ml 500 ml Stool Total 2000 ml # Voids 2 1 # Bowel Movements 2 Laboratory Tests 08/15/16 06:00: White Blood Count 11.5H, Red Blood Count 2.81L, Hemoglobin 8.6L, Hematocrit 25.3L, Mean Corpuscular Volume 90, Mean Corpuscular Hemoglobin 30.7, Mean Corpuscular Hemoglobin Concent 34.1, Red Cell Distribution Width 13.3, Platelet Count 269, Mean Platelet Volume 7.2, Neutrophils (%) (Auto) 78.1H, Lymphocytes ( %) (Auto) 8.4L, Monocytes (%) (Auto) 8.9, Eosinophils (%) (Auto) 2.8, Basophils (%) (Auto) 1.8, Sodium Level 138, Potassium Level 4.0, Chloride Level 101, Carbon Dioxide Level 22, Anion Gap 15, Blood Urea Nitrogen 25H, Creatinine 2.3H , Estimat Glomerular Filtration Rate 28.7, Glucose Level 170H, Calcium Level 8.2L, C-Reactive Protein, Quantitative [Pending] General Appearance: no apparent distress EENT: TMs normal Neck: supple Cardiovascular: regular rhythm Respiratory/Chest: normal breath sounds Abdomen: non tender Extremities: non-tender Edema: 1+ Leg (L), 1+ Leg (R) Edema: mild edema Neurologic: alert Skin: warm/dry Andrew Mendez Aug 15, 2016 21:25
--- NOTE | 2016-08-15 23:28 | Pulmonology Progress Note ---
Assessment/Plan Problems: (1) SBO (small bowel obstruction) (2) MIGNON (acute kidney injury) (3) Ileus (4) Enteritis (5) Non-ST elevation (NSTEMI) myocardial infarction Assessment/Plan improving, had a large BM on Diflucan, Linezolid, zosyn wbc decreasing, s lcontinue antibiotics check electrolytes advance diet dvt prophylaxis pt/ot dc planning Subjective Gastrointestinal/Abdominal: Reports: bloating, nausea, vomiting Allergies: Coded Allergies: No Known Allergies (Unverified , 07/26/16) Objective Last 24 Hour Vital Signs Date Time Temp Pulse Resp B/P Pulse Ox O2 Delivery O2 Flow Rate FiO2 08/15/16 22:01 83 145/91 08/15/16 20:20 97.9 85 19 148/92 98 Room Air 08/15/16 15:53 97.3 77 19 142/88 100 Room Air 08/15/16 11:59 97.3 76 18 143/96 99 Room Air 08/15/16 08:10 82 149/92 08/15/16 08:09 82 149/92 08/15/16 08:00 97.9 76 18 146/99 99 Room Air 08/15/16 04:00 98.2 79 18 150/91 99 Room Air 08/15/16 00:00 98.1 77 18 149/98 98 Room Air Intake and Output 08/14/16 08/15/16 19:00 07:00 Intake Total 720 ml 1480 ml Output Total 480 ml 2500 ml Balance 240 ml -1020 ml Intake Oral 120 ml 480 ml IV Total 600 ml 1000 ml Output Urine Total 480 ml 500 ml Stool Total 2000 ml # Voids 2 1 # Bowel Movements 2 General Appearance: no acute distress HEENT: normocephalic, atraumatic, PERRL Respiratory/Chest: chest wall non-tender, decreased breath sounds, accessory muscle use Cardiovascular: normal peripheral pulses, normal rate, regular rhythm, no JVD Abdomen: hyperactive bowel sounds, distended, guarding, tender, mass Genitourinary: normal external genitalia Extremities: no cyanosis Skin: no rash, no lesions 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: cloth layer II-XII grossly normal, no motor/sensory deficits Laboratory Tests 08/15/16 06:00: White Blood Count 11.5H, Red Blood Count 2.81L, Hemoglobin 8.6L, Hematocrit 25.3L, Mean Corpuscular Volume 90, Mean Corpuscular Hemoglobin 30.7, Mean Corpuscular Hemoglobin Concent 34.1, Red Cell Distribution Width 13.3, Platelet Count 269, Mean Platelet Volume 7.2, Neutrophils (%) (Auto) 78.1H, Lymphocytes ( %) (Auto) 8.4L, Monocytes (%) (Auto) 8.9, Eosinophils (%) (Auto) 2.8, Basophils (%) (Auto) 1.8, Sodium Level 138, Potassium Level 4.0, Chloride Level 101, Carbon Dioxide Level 22, Anion Gap 15, Blood Urea Nitrogen 25H, Creatinine 2.3H , Estimat Glomerular Filtration Rate 28.7, Glucose Level 170H, Calcium Level 8.2L, C-Reactive Protein, Quantitative [Pending] Current Medications Medications (Trade) Dose Ordered Sig/Arti Route PRN Reason Start Time Stop Time Status Last Admin Dose Admin Acetaminophen (Tylenol) 650 mg Q4H PRN RECTAL FEVER>100.5 08/03/16 19:00 09/02/16 18:59 Amlodipine Besylate 5 mg 5 mg DAILY ORAL 08/15/16 09:00 09/14/16 08:59 08/15/16 08:09 Dextrose (D10w) 1,000 ml @ 0 mls/hr Q24H PRN IV PN interrupted or unavailable 08/03/16 21:00 09/02/16 20:59 Dextrose (Dextrose 50%) STAT PRN IV Hypoglycemia 08/03/16 19:00 09/02/16 18:59 Dextrose/Sodium Chloride (D10ns) 1,000 ml @ 30 mls/hr Q24H IV 08/15/16 17:00 09/14/16 16:59 08/15/16 17:35 Enoxaparin Sodium (Lovenox) 30 mg DAILY SUBQ 08/04/16 09:00 09/03/16 08:59 08/15/16 08:15 Fluconazole/ Sodium Chloride (Diflucan 200mg/ 100ml Premix) 100 ml @ 100 mls/hr Q24H IV 08/14/16 12:00 08/21/16 11:59 08/15/16 11:27 Insulin Aspart (NovoLOG) No Dose Q6HR SUBQ 08/04/16 00:00 09/03/16 00:00 08/15/16 17:35 Linezolid 300 ml @ 300 mls/hr Q12HR@0600,1800 IVPB 08/09/16 18:00 08/16/16 17:59 08/15/16 17:34 Metoprolol Tartrate (Lopressor) 50 mg Q12HR ORAL 08/08/16 21:00 09/07/16 20:59 08/15/16 22:01 Neomycin/ Polymyxin/ Bacitracin (Neosporin Oint 15gm) 1 applic BIDPRN PRN TOPIC apply areas where JPs removed 08/14/16 13:15 09/13/16 13:14 08/14/16 14:32 Ondansetron HCl (Zofran) 4 mg Q6H PRN IVP Nausea & Vomiting 08/03/16 19:10 09/02/16 19:09 Pantoprazole (Protonix) 40 mg DAILY IVP 08/04/16 09:00 09/03/16 08:59 08/15/16 08:10 Piperacillin Sod/ Tazobactam Sod/ Dextrose (Zosyn/D5W) 110 ml @ 27.5 mls/hr EVERY 8 HOURS IVPB 08/10/16 14:00 08/17/16 13:59 08/15/16 22:01 Simethicone (Mylicon) 80 mg QIDPRN PRN NG GAS PAIN 08/03/16 19:00 09/02/16 18:59 08/14/16 16:29 Tamsulosin HCl 0.4 mg 0.4 mg BID ORAL 08/08/16 18:00 09/07/16 17:59 08/15/16 17:34 Tramadol HCl 50 mg 50 mg Q4H PRN ORAL For Pain 08/12/16 12:15 08/19/16 12:14 08/15/16 17:34 MAIKEL ESPINOSA Aug 15, 2016 23:28
[2016-08-16 00:23] VITALS: BP 147/97
[2016-08-16 04:00] VITALS: BP 151/89
[2016-08-16] MEDS: Piperacillin/Tazobactam 3.375 GM in D5W 110 ML IVPB SCH ×2 (05:01→13:08)
[2016-08-16] MEDS: NovoLOG Insulin Flexpen SUBQ SCH (06:00)
--- NOTE | 2016-08-16 07:59 | General Progress Note ---
Assessment/Plan Assessment/Plan Assessment - SBO / gangrene - resected - septic shock - recovered - ATN - improving - abnormal LFT - ? shocked liver, improved - s/p ex lap for anastomotic leak - Leukocytosis - improved - anemia, due to multiple surgeries and blood draws - mild elevated amylase/lipase, likely due to surgery - normal Pancreas on MRI Recommendations po diet transfuse PRN TPN - wean off abx PPI follow labs and exam surgical f/u OOB Subjective Allergies: Coded Allergies: No Known Allergies (Unverified , 07/26/16) Subjective patient seen earlier today No new complaints tolerating PO Objective Last 24 Hour Vital Signs Date Time Temp Pulse Resp B/P Pulse Ox O2 Delivery O2 Flow Rate FiO2 08/16/16 04:00 97.0 75 20 151/89 97 Room Air 08/16/16 00:23 97.0 71 20 147/97 96 Room Air 08/15/16 22:01 83 145/91 08/15/16 20:20 97.9 85 19 148/92 98 Room Air 08/15/16 15:53 97.3 77 19 142/88 100 Room Air 08/15/16 11:59 97.3 76 18 143/96 99 Room Air 08/15/16 08:10 82 149/92 08/15/16 08:09 82 149/92 08/15/16 08:00 97.9 76 18 146/99 99 Room Air Intake and Output 08/15/16 08/16/16 19:00 07:00 Intake Total 990 ml 387.5 ml Balance 990 ml 387.5 ml Intake Oral 360 ml 240 ml IV Total 630 ml 147.5 ml # Voids 3 4 # Bowel Movements 1 Objective WDWN man NCAT supple CTA RR abd flat, (+) midline wound trace edema ALVAREZ MARTINEZ Aug 16, 2016 07:59
[2016-08-16 08:09] VITALS: BP 149/96
[2016-08-16] MEDS: Tamsulosin 0.4mg cap ORAL SCH ×2 (08:32→17:47)
[2016-08-16] MEDS: Metoprolol 50mg tab ORAL SCH ×2 (08:33→21:39)
[2016-08-16] MEDS: Pantoprazole Inj IVP SCH (08:33)
[2016-08-16] MEDS: Enoxaparin 30mg Inj SUBQ SCH (08:35)
--- NOTE | 2016-08-16 08:55 | General Progress Note ---
Assessment/Plan Assessment/Plan (1) Small bowel obstruction (2) Intractable abdominal pain (3) Gangrene of the small bowel (4) S/p Exploratory Laparotomy resection of the small bowel with primary anastomosis Pt will be continued on Tramadol as needed. Pt was d/w Dr. Aguirre and he concurred. Subjective Date patient seen: Aug 16, 2016 Time patient seen: 08:00 - am Allergies: Coded Allergies: No Known Allergies (Unverified , 07/26/16) Subjective Constitutional: Reports: weakness, Denies: chills, diaphoresis, fever, malaise HEENT: Denies: blurred vision, double vision, ear discharge, ear pain, eye pain , mouth pain, mouth swelling, nose congestion, nose pain, tearing, throat pain, throat swelling Cardiovascular: Denies: chest pain, edema, irregular heart rate, lightheadedness, palpitations, syncope Respiratory: Denies: SOB at rest, SOB with exertion, cough, orthopnea, sputum, stridor, wheezing Gastrointestinal/Abdominal: Reports: abdominal pain Denies: black stools, blood in stool, constipated, diarrhea, difficulty swallowing, poor appetite, poor fluid intake, rectal bleeding, tarry stools, vomiting Genitourinary: Denies: burning, discharge, flank pain, frequency, hematuria, incontinence, pain, urgency 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: Reports: weakness, Denies: anxiety, depressed, emotional problems, headache, numbness, paresthesia, pre-existing deficit, seizure, tingling, tremors Endocrine: Denies: excessive sweating, flushing, increased hunger, increased thirst, increased urine, intolerance to cold, intolerance to heat, unexplained weight gain, unexplained weight loss Hematologic/Lymphatic: Denies: anemia, easy bleeding, easy bruising Subjective Pts is lying in bed, at bedside. Pt is comfortable in bed at this time and pain is at a mild level. Objective Last 24 Hour Vital Signs Date Time Temp Pulse Resp B/P Pulse Ox O2 Delivery O2 Flow Rate FiO2 08/16/16 08:33 76 149/96 08/16/16 08:33 76 149/96 08/16/16 08:09 97.5 76 20 149/96 99 Room Air 08/16/16 04:00 97.0 75 20 151/89 97 Room Air 08/16/16 00:23 97.0 71 20 147/97 96 Room Air 08/15/16 22:01 83 145/91 08/15/16 20:20 97.9 85 19 148/92 98 Room Air 08/15/16 15:53 97.3 77 19 142/88 100 Room Air 08/15/16 11:59 97.3 76 18 143/96 99 Room Air Intake and Output 08/15/16 08/16/16 19:00 07:00 Intake Total 990 ml 387.5 ml Balance 990 ml 387.5 ml Intake Oral 360 ml 240 ml IV Total 630 ml 147.5 ml # Voids 3 4 # Bowel Movements 1 Objective General Appearance: alert EENT: PERRL/EOMI Neck: non-tender, supple Cardiovascular: normal rate, regular rhythm Respiratory/Chest: lungs clear Abdomen: other - tenderness to palpation Extremities: normal inspection Neurologic: alert, responsive Skin: warm/dry SHA BOSE Aug 16, 2016 08:55
[2016-08-16] MEDS: Fluconazole 200mg/100ml (Pre-Mix) IV SCH (11:25)
[2016-08-16 11:27] VITALS: BP 147/95
--- NOTE | 2016-08-16 11:49 | General Progress Note ---
Assessment/Plan Problem List: (1) Ileus ICD Codes: K56.7 - Ileus, unspecified SNOMED: 191700211 (2) Sepsis ICD Codes: A41.9 - Sepsis, unspecified organism SNOMED: 86772851 (3) Abdominal pain ICD Codes: R10.9 - Unspecified abdominal pain SNOMED: 27426619 (4) SBO (small bowel obstruction) ICD Codes: K56.69 - Other intestinal obstruction SNOMED: 820173978 (5) Abdominal gas pain ICD Codes: R14.1 - Gas pain SNOMED: 01270434 (6) Enteritis ICD Codes: K52.9 - Noninfective gastroenteritis and colitis, unspecified SNOMED: 90077563 Status: progressing Assessment/Plan tpn afebrile vitlas stable poor appetite s/p bowel gangrene repair needs snf debliitated needs pt/ot i spoke w daughter and stressed the fact that he needs snf before going home on iv abx deblitated poor po intake malnurished daughter agreed to snf Subjective ROS Limited/Unobtainable: Yes Constitutional: Reports: no symptoms Gastrointestinal/Abdominal: Reports: abdominal pain Allergies: Coded Allergies: No Known Allergies (Unverified , 07/26/16) Objective Last 24 Hour Vital Signs Date Time Temp Pulse Resp B/P Pulse Ox O2 Delivery O2 Flow Rate FiO2 08/16/16 11:27 97.6 75 20 147/95 99 Room Air 08/16/16 08:33 76 149/96 08/16/16 08:33 76 149/96 08/16/16 08:09 97.5 76 20 149/96 99 Room Air 08/16/16 04:00 97.0 75 20 151/89 97 Room Air 08/16/16 00:23 97.0 71 20 147/97 96 Room Air 08/15/16 22:01 83 145/91 08/15/16 20:20 97.9 85 19 148/92 98 Room Air 08/15/16 15:53 97.3 77 19 142/88 100 Room Air 08/15/16 11:59 97.3 76 18 143/96 99 Room Air Intake and Output 08/15/16 08/16/16 19:00 07:00 Intake Total 990 ml 417.5 ml Balance 990 ml 417.5 ml Intake Oral 360 ml 240 ml IV Total 630 ml 177.5 ml # Voids 3 4 # Bowel Movements 1 EENT: PERRL/EOMI Neck: supple Cardiovascular: normal rate Respiratory/Chest: lungs clear Abdomen: soft Teo Love MD Aug 16, 2016 11:49
--- NOTE | 2016-08-16 11:53 | General Progress Note ---
Assessment/Plan Assessment/Plan ASSESSMENT: 1. Leukocytosis Likely 2/2 underlying sepsis vs reactive. Has improved 2. Small bowel obstruction. status post 3rd exploratory laparotomy; s/p resection gangrene 3. Anemia 2/2 chronic disease, does not require iron, potential slow bleed but unlikely 4. Sepsis, likely contributing to leukocytosis 5. Abdominal pain due to sbo 6. Thrombocytopenia - has slowly improved RECOMMENDATIONS: 1. Monitor counts 2. Does not need require iron 3. Follow up on surgery, GI, ID recs 5. Transfuse to goal hgb >7 6. DVT ppx lovenox 7. GI ppx ppi 8. DW staff Thank you, Andrew Mendez MD Subjective Constitutional: Reports: no symptoms HEENT: Reports: no symptoms Cardiovascular: Reports: no symptoms Respiratory: Reports: no symptoms Gastrointestinal/Abdominal: Reports: poor appetite Genitourinary: Reports: no symptoms 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: Reports: anxiety Endocrine: Reports: no symptoms Hematologic/Lymphatic: Reports: anemia Allergies: Coded Allergies: No Known Allergies (Unverified , 07/26/16) Subjective no bleeding, no hematochezia or hematemesis was reported Objective Last 24 Hour Vital Signs Date Time Temp Pulse Resp B/P Pulse Ox O2 Delivery O2 Flow Rate FiO2 08/16/16 11:27 97.6 75 20 147/95 99 Room Air 08/16/16 08:33 76 149/96 08/16/16 08:33 76 149/96 08/16/16 08:09 97.5 76 20 149/96 99 Room Air 08/16/16 04:00 97.0 75 20 151/89 97 Room Air 08/16/16 00:23 97.0 71 20 147/97 96 Room Air 08/15/16 22:01 83 145/91 08/15/16 20:20 97.9 85 19 148/92 98 Room Air 08/15/16 15:53 97.3 77 19 142/88 100 Room Air 08/15/16 11:59 97.3 76 18 143/96 99 Room Air Intake and Output 08/15/16 08/16/16 19:00 07:00 Intake Total 990 ml 417.5 ml Balance 990 ml 417.5 ml Intake Oral 360 ml 240 ml IV Total 630 ml 177.5 ml # Voids 3 4 # Bowel Movements 1 General Appearance: no apparent distress EENT: TMs normal Neck: supple Cardiovascular: regular rhythm Respiratory/Chest: lungs clear Abdomen: soft Extremities: non-tender Edema: 1+ Leg (L), 1+ Leg (R) Edema: mild edema Neurologic: no motor/sensory deficits Skin: warm/dry Andrew Mendez Aug 16, 2016 11:53
--- NOTE | 2016-08-16 13:29 | General Progress Note ---
Assessment/Plan Status: unchanged Assessment/Plan status: Septic Shock leading to acute renal failure- Cr peaked 4.8 now down to 2.6 Abdominal Surgery 07/26/16 then again 05/27 and revision 08/02 Plan; off TPN No labs today on flomax- on lopressor post op care- Antibiotics- Protonix monitor renal parameters- per GI / Surgeon Favor transfusion as needed Subjective ROS Limited/Unobtainable: No Constitutional: Reports: malaise Allergies: Coded Allergies: No Known Allergies (Unverified , 07/26/16) Objective Last 24 Hour Vital Signs Date Time Temp Pulse Resp B/P Pulse Ox O2 Delivery O2 Flow Rate FiO2 08/16/16 11:27 97.6 75 20 147/95 99 Room Air 08/16/16 08:33 76 149/96 08/16/16 08:33 76 149/96 08/16/16 08:09 97.5 76 20 149/96 99 Room Air 08/16/16 04:00 97.0 75 20 151/89 97 Room Air 08/16/16 00:23 97.0 71 20 147/97 96 Room Air 08/15/16 22:01 83 145/91 08/15/16 20:20 97.9 85 19 148/92 98 Room Air 08/15/16 15:53 97.3 77 19 142/88 100 Room Air Intake and Output 08/15/16 08/16/16 19:00 07:00 Intake Total 990 ml 417.5 ml Balance 990 ml 417.5 ml Intake Oral 360 ml 240 ml IV Total 630 ml 177.5 ml # Voids 3 4 # Bowel Movements 1 General Appearance: no apparent distress Respiratory/Chest: decreased breath sounds Abdomen: soft Objective no other changes in PE REBECCA SCHULTE Aug 16, 2016 13:29
[2016-08-16] MEDS ORDERED: FAT EMULSION 20% IV SCH ×2 (14:00→21:00)
[2016-08-16] MEDS ORDERED: TPN IV SCH ×2 (14:00→21:00)
[2016-08-16 14:44] LABS: CRP QUANT 1.1 mg/dL (< 0.5)
[2016-08-16 15:48] VITALS: BP 150/91
--- NOTE | 2016-08-16 16:12 | Infectious Diseases Prog Note ---
Assessment/Plan Problems: (1) Septic shock Assessment & Plan: improving , S/P 3 EXP LAP, due to anastomosis leak , S/P revision , improving on zyvox, zosyn and fluconazol, repeated blood culture is negative , UA is negative for infection and CXR showed atelectasis , will stop current antibiotics regimen for now , and monitor WBC of antibiotics . stool for C diff is negative , abdominal fluids culture showed no growth. (2) SBO (small bowel obstruction) Assessment & Plan: S/P EXP LAP X 3 ,due to anastomosis leak , has ileus post OP, on TPN, tolerated liquid diet, general surgery is following (3) Abdominal pain Assessment & Plan: improving, surgery is following, encourage walking (4) MIGNON (acute kidney injury) Assessment & Plan: improving, due to sepsis and hypotension, continue IVF, titrate to keep SBP >100, renal is following (5) Ileus Assessment & Plan: improving, due to repeated EXP LAP, continue IVF, encourage walking , surgery is following Subjective Constitutional: Reports: no symptoms HEENT: Reports: no symptoms Respiratory: Reports: no symptoms Breasts: Reports: no symptoms Cardiovascular: Reports: no symptoms Gastrointestinal/Abdominal: Reports: bloating, other - pressure Genitourinary: Reports: no symptoms Neurologic: Reports: no symptoms Psychiatric: Reports: no symptoms Skin: Reports: no symptoms Endocrine: Reports: no symptoms Allergies: Coded Allergies: No Known Allergies (Unverified , 07/26/16) Subjective had one bowel movement today , tolerated diet well, no fever or chills, no cough or SOB.stables and drainage were removed. Objective Vital Signs Last 24 Hour Vital Signs Date Time Temp Pulse Resp B/P Pulse Ox O2 Delivery O2 Flow Rate FiO2 08/16/16 15:48 97.0 73 20 150/91 98 Room Air 08/16/16 11:27 97.6 75 20 147/95 99 Room Air 08/16/16 08:33 76 149/96 08/16/16 08:33 76 149/96 08/16/16 08:09 97.5 76 20 149/96 99 Room Air 08/16/16 04:00 97.0 75 20 151/89 97 Room Air 08/16/16 00:23 97.0 71 20 147/97 96 Room Air 08/15/16 22:01 83 145/91 08/15/16 20:20 97.9 85 19 148/92 98 Room Air General Appearance: WD/WN, no acute distress HEENT: normocephalic, atraumatic, anicteric Respiratory/Chest: chest wall non-tender, lungs clear, normal breath sounds, no respiratory distress, no accessory muscle use Cardiovascular: normal peripheral pulses, normal rate, regular rhythm, no gallop/murmur Abdomen: normal bowel sounds, soft, non tender, no organomegaly, non distended , no mass, other - surgical scar, with intact wound , no drainage Extremities: no cyanosis, no clubbing Skin: no rash, no lesions, no ulcers Current Medications Medications (Trade) Dose Ordered Sig/Arti Route PRN Reason Start Time Stop Time Status Last Admin Dose Admin Acetaminophen (Tylenol) 650 mg Q4H PRN RECTAL FEVER>100.5 08/03/16 19:00 09/02/16 18:59 Amlodipine Besylate 5 mg 5 mg DAILY ORAL 08/15/16 09:00 09/14/16 08:59 08/16/16 08:33 Dextrose (D10w) 1,000 ml @ 0 mls/hr Q24H PRN IV PN interrupted or unavailable 08/03/16 21:00 09/02/16 20:59 Dextrose (Dextrose 50%) STAT PRN IV Hypoglycemia 08/03/16 19:00 09/02/16 18:59 Dextrose/Sodium Chloride (D10ns) 1,000 ml @ 30 mls/hr Q24H IV 08/15/16 17:00 09/14/16 16:59 08/15/16 17:35 Enoxaparin Sodium (Lovenox) 30 mg DAILY SUBQ 08/04/16 09:00 09/03/16 08:59 08/16/16 08:35 Fluconazole/ Sodium Chloride (Diflucan 200mg/ 100ml Premix) 100 ml @ 100 mls/hr Q24H IV 08/14/16 12:00 08/21/16 11:59 08/16/16 11:25 Linezolid 300 ml @ 300 mls/hr Q12HR@0600,1800 IVPB 08/09/16 18:00 08/16/16 17:59 08/16/16 05:01 Metoprolol Tartrate (Lopressor) 50 mg Q12HR ORAL 08/08/16 21:00 09/07/16 20:59 08/16/16 08:33 Neomycin/ Polymyxin/ Bacitracin (Neosporin Oint 15gm) 1 applic BIDPRN PRN TOPIC apply areas where JPs removed 08/14/16 13:15 09/13/16 13:14 08/14/16 14:32 Ondansetron HCl (Zofran) 4 mg Q6H PRN IVP Nausea & Vomiting 08/03/16 19:10 09/02/16 19:09 Pantoprazole (Protonix) 40 mg DAILY ORAL 08/16/16 13:45 09/15/16 13:44 08/16/16 13:50 Piperacillin Sod/ Tazobactam Sod/ Dextrose (Zosyn/D5W) 110 ml @ 27.5 mls/hr EVERY 8 HOURS IVPB 08/10/16 14:00 08/16/16 23:59 08/16/16 13:08 Simethicone (Mylicon) 80 mg QIDPRN PRN NG GAS PAIN 08/03/16 19:00 09/02/16 18:59 08/14/16 16:29 Tamsulosin HCl 0.4 mg 0.4 mg BID ORAL 08/08/16 18:00 09/07/16 17:59 08/16/16 08:32 Tramadol HCl 50 mg 50 mg Q4H PRN ORAL For Pain 08/12/16 12:15 08/19/16 12:14 08/15/16 17:34 Piyush Harris M.D. Aug 16, 2016 16:12
[2016-08-16] MEDS: Dextrose 10%/0.9% SOD CHL 1,000 ML IV SCH (17:47)
[2016-08-16 20:00] VITALS: BP 151/96
--- NOTE | 2016-08-16 22:03 | Pulmonology Progress Note ---
Assessment/Plan Problems: (1) SBO (small bowel obstruction) (2) MIGNON (acute kidney injury) (3) Ileus (4) Enteritis (5) Non-ST elevation (NSTEMI) myocardial infarction Assessment/Plan improving, had a large BM on Diflucan, Linezolid, zosyn wbc decreasing, s lcontinue antibiotics check electrolytes advance diet dvt prophylaxis pt/ot dc planning Subjective ROS Limited/Unobtainable: No Gastrointestinal/Abdominal: Reports: bloating, nausea, vomiting Allergies: Coded Allergies: No Known Allergies (Unverified , 07/26/16) Objective Last 24 Hour Vital Signs Date Time Temp Pulse Resp B/P Pulse Ox O2 Delivery O2 Flow Rate FiO2 08/16/16 21:39 79 151/96 08/16/16 20:00 97.9 79 18 151/96 100 Room Air 08/16/16 15:48 97.0 73 20 150/91 98 Room Air 08/16/16 11:27 97.6 75 20 147/95 99 Room Air 08/16/16 08:33 76 149/96 08/16/16 08:33 76 149/96 08/16/16 08:09 97.5 76 20 149/96 99 Room Air 08/16/16 04:00 97.0 75 20 151/89 97 Room Air 08/16/16 00:23 97.0 71 20 147/97 96 Room Air Intake and Output 08/15/16 08/16/16 19:00 07:00 Intake Total 990 ml 417.5 ml Balance 990 ml 417.5 ml Intake Oral 360 ml 240 ml IV Total 630 ml 177.5 ml # Voids 3 4 # Bowel Movements 1 General Appearance: no acute distress HEENT: normocephalic, atraumatic, PERRL Respiratory/Chest: chest wall non-tender, normal breath sounds, no respiratory distress Cardiovascular: normal peripheral pulses, regularly irregular, no JVD Abdomen: hyperactive bowel sounds, distended, guarding, tender, rebound tenderness Genitourinary: normal external genitalia Extremities: no cyanosis 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: international specialist II-XII grossly normal, no motor/sensory deficits Current Medications Medications (Trade) Dose Ordered Sig/Arti Route PRN Reason Start Time Stop Time Status Last Admin Dose Admin Acetaminophen (Tylenol) 650 mg Q4H PRN RECTAL FEVER>100.5 08/03/16 19:00 09/02/16 18:59 Amlodipine Besylate 5 mg 5 mg DAILY ORAL 08/15/16 09:00 09/14/16 08:59 08/16/16 08:33 Dextrose (D10w) 1,000 ml @ 0 mls/hr Q24H PRN IV PN interrupted or unavailable 08/03/16 21:00 09/02/16 20:59 Dextrose (Dextrose 50%) STAT PRN IV Hypoglycemia 08/03/16 19:00 09/02/16 18:59 Dextrose/Sodium Chloride (D10ns) 1,000 ml @ 30 mls/hr Q24H IV 08/15/16 17:00 09/14/16 16:59 08/16/16 17:47 Enoxaparin Sodium (Lovenox) 30 mg DAILY SUBQ 08/04/16 09:00 09/03/16 08:59 08/16/16 08:35 Metoprolol Tartrate (Lopressor) 50 mg Q12HR ORAL 08/08/16 21:00 09/07/16 20:59 08/16/16 21:39 Neomycin/ Polymyxin/ Bacitracin (Neosporin Oint 15gm) 1 applic BIDPRN PRN TOPIC apply areas where JPs removed 08/14/16 13:15 09/13/16 13:14 08/14/16 14:32 Ondansetron HCl (Zofran) 4 mg Q6H PRN IVP Nausea & Vomiting 08/03/16 19:10 09/02/16 19:09 Pantoprazole (Protonix) 40 mg DAILY ORAL 08/16/16 13:45 09/15/16 13:44 08/16/16 13:50 Simethicone (Mylicon) 80 mg QIDPRN PRN NG GAS PAIN 08/03/16 19:00 09/02/16 18:59 08/14/16 16:29 Tamsulosin HCl (Flomax) 0.4 mg BID ORAL 08/08/16 18:00 09/07/16 17:59 08/16/16 17:47 Tramadol HCl (Ultram) 50 mg Q4H PRN ORAL For Pain 08/12/16 12:15 08/19/16 12:14 08/15/16 17:34 MAIKEL ESPINSOA Aug 16, 2016 22:03
--- NOTE | 2016-08-16 22:55 | Cardiac Electrophysiology PN ---
Assessment/Plan Assessment/Plan 1. Troponin leak due to demand ischemia and renal failure.No chest pain. ECG and Echo.Continue Lopressor. 2. S/P Septic shock due to small bowel obstruction and gangrene. Off pressors.On iv fluid and antibiotics. WBC 11.5. 3. HTN.On Lopressor 50 bid and Norvasc 5 mg. Avoid ACEI or ARB for renal failure 4. Small bowel obstruction status post laparotomy and small bowel resection. S/ P 3rd surgery on 08/02/16. 5. Respiratory failure. 6. Renal failure, creatinine 2.3 DW RN Subjective Subjective No chest pain or SOB .Trying to have solid food with at bedside. Objective Last 24 Hour Vital Signs Date Time Temp Pulse Resp B/P Pulse Ox O2 Delivery O2 Flow Rate FiO2 08/16/16 21:39 79 151/96 08/16/16 20:00 97.9 79 18 151/96 100 Room Air 08/16/16 15:48 97.0 73 20 150/91 98 Room Air 08/16/16 11:27 97.6 75 20 147/95 99 Room Air 08/16/16 08:33 76 149/96 08/16/16 08:33 76 149/96 08/16/16 08:09 97.5 76 20 149/96 99 Room Air 08/16/16 04:00 97.0 75 20 151/89 97 Room Air 08/16/16 00:23 97.0 71 20 147/97 96 Room Air Intake and Output 08/15/16 08/16/16 19:00 07:00 Intake Total 990 ml 417.5 ml Balance 990 ml 417.5 ml Intake Oral 360 ml 240 ml IV Total 630 ml 177.5 ml # Voids 3 4 # Bowel Movements 1 Objective HEAD AND NECK: No JVD. LUNGS: Clear CARDIOVASCULAR: Nl S1 and S2 with no gallop or murmur. ABDOMEN: Post median laparotomy.Tasia and Drains removed. EXTREMITIES: No pitting edema. HONEY DUKE Aug 16, 2016 22:55
[2016-08-17 00:49] VITALS: BP 147/98
[2016-08-17 04:00] VITALS: BP 155/95
[2016-08-17 06:05] LABS: BASOPHILS % (AUTO) 3.5 % (0.0-2.0); EOSINOPHILS % (AUTO) 5.4 % (0.0-3.0); LYMPHOCYTES % (AUTO) 12.6 % (20.0-45.0); MEAN CORPUSCULAR HEMOGLOBIN 30.2 PG (27.0-31.0); MEAN CORPUSCULAR HGB CONC 33.4 G/DL (32.0-36.0); MEAN CORPUSCULAR VOLUME 90 FL (80-99); MEAN PLATELET VOLUME 7.3 FL (6.5-10.1); MONOCYTES % (AUTO) 11.2 % (1.0-10.0); NEUTROPHILS % (AUTO) 67.3 % (45.0-75.0); PLATELET COUNT 263 K/UL (150-450); RED CELL DISTRIBUTION WIDTH 13.3 % (11.6-14.8)
[2016-08-17 06:54] LABS: ALBUMIN/GLOBULIN RATIO 0.7 (1.0-2.7); CALCIUM 8.6 mg/dL (8.6-10.2); CHOLESTEROL/HDL RATIO 7.5 (3.3-4.4); CREATININE 2.2 mg/dL (0.7-1.2); CRP QUANT 0.8 mg/dL (< 0.5); GLOMERULAR FILTRATION RATE 30.2 mL/min (>60); MAGNESIUM 1.6 mg/dL (1.7-2.5); PHOSPHORUS 3.5 mg/dL (2.5-4.8); POTASSIUM 3.8 mEQ/L (3.4-4.9); TOTAL PROTEIN 6.8 g/dL (6.6-8.7); URIC ACID 3.3 mg/dL (3.0-7.5)
[2016-08-17 08:08] VITALS: BP 148/97
[2016-08-17] MEDS: Metoprolol 50mg tab ORAL SCH (09:39)
[2016-08-17] MEDS: Tamsulosin 0.4mg cap ORAL SCH ×2 (09:39→18:44)
[2016-08-17] MEDS: Enoxaparin 30mg Inj SUBQ SCH (09:43)
--- NOTE | 2016-08-17 09:47 | General Progress Note ---
Assessment/Plan Assessment/Plan (1) Small bowel obstruction (2) Intractable abdominal pain (3) Gangrene of the small bowel (4) S/p Exploratory Laparotomy resection of the small bowel with primary anastomosis Pt will be continued on Tramadol as needed. Pt was d/w Dr. Aguirre and he concurred. Subjective Date patient seen: Aug 17, 2016 Time patient seen: 07:00 - am Allergies: Coded Allergies: No Known Allergies (Unverified , 07/26/16) Subjective Constitutional: Reports: weakness, Denies: chills, diaphoresis, fever, malaise HEENT: Denies: blurred vision, double vision, ear discharge, ear pain, eye pain , mouth pain, mouth swelling, nose congestion, nose pain, tearing, throat pain, throat swelling Cardiovascular: Denies: chest pain, edema, irregular heart rate, lightheadedness, palpitations, syncope Respiratory: Denies: SOB at rest, SOB with exertion, cough, orthopnea, sputum, stridor, wheezing Gastrointestinal/Abdominal: Reports: abdominal pain Denies: black stools, blood in stool, constipated, diarrhea, difficulty swallowing, poor appetite, poor fluid intake, rectal bleeding, tarry stools, vomiting Genitourinary: Denies: burning, discharge, flank pain, frequency, hematuria, incontinence, pain, urgency 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: Reports: weakness, Denies: anxiety, depressed, emotional problems, headache, numbness, paresthesia, pre-existing deficit, seizure, tingling, tremors Endocrine: Denies: excessive sweating, flushing, increased hunger, increased thirst, increased urine, intolerance to cold, intolerance to heat, unexplained weight gain, unexplained weight loss Hematologic/Lymphatic: Denies: anemia, easy bleeding, easy bruising Subjective Pts is lying in bed, son in law at bedside. Pain is a 4/10 at this time using the Tramadol as needed. Objective Last 24 Hour Vital Signs Date Time Temp Pulse Resp B/P Pulse Ox O2 Delivery O2 Flow Rate FiO2 08/17/16 09:40 84 148/97 08/17/16 09:39 84 148/97 08/17/16 08:08 98.0 84 20 148/97 99 Room Air 08/17/16 04:00 97.9 77 20 155/95 98 Room Air 08/17/16 00:49 97.9 73 20 147/98 99 Room Air 08/16/16 21:39 79 151/96 08/16/16 20:00 97.9 79 18 151/96 100 Room Air 08/16/16 15:48 97.0 73 20 150/91 98 Room Air 08/16/16 11:27 97.6 75 20 147/95 99 Room Air Intake and Output 08/16/16 08/17/16 19:00 07:00 Intake Total 810 ml 460 ml Balance 810 ml 460 ml Intake Oral 600 ml 220 ml IV Total 210 ml 240 ml # Voids 2 3 Laboratory Tests 08/17/16 05:30: White Blood Count 8.0, Red Blood Count 2.70L, Hemoglobin 8.2L, Hematocrit 24.4L , Mean Corpuscular Volume 90, Mean Corpuscular Hemoglobin 30.2, Mean Corpuscular Hemoglobin Concent 33.4, Red Cell Distribution Width 13.3, Platelet Count 263, Mean Platelet Volume 7.3, Neutrophils (%) (Auto) 67.3, Lymphocytes (% ) (Auto) 12.6L, Monocytes (%) (Auto) 11.2H, Eosinophils (%) (Auto) 5.4H, Basophils (%) (Auto) 3.5H, Sodium Level 137, Potassium Level 3.8, Chloride Level 99, Carbon Dioxide Level 22, Anion Gap 16H, Blood Urea Nitrogen 21, Creatinine 2.2H, Estimat Glomerular Filtration Rate 30.2, Glucose Level 131H, Uric Acid 3.3, Calcium Level 8.6, Phosphorus Level 3.5, Magnesium Level 1.6L, Total Bilirubin 0.9, Aspartate Amino Transf (AST/SGOT) 66H, Alanine Aminotransferase (ALT/SGPT) 97H, Alkaline Phosphatase 204H, C-Reactive Protein, Quantitative 0.8H, Pro-B-Type Natriuretic Peptide 275H, Total Protein 6.8, Albumin 3.0L, Globulin 3.8, Albumin/Globulin Ratio 0.7L, Triglycerides Level 173H, Cholesterol Level 158, LDL Cholesterol 102H, HDL Cholesterol 21, Cholesterol/HDL Ratio 7.5H Objective General Appearance: alert EENT: PERRL/EOMI Neck: non-tender, supple Cardiovascular: normal rate, regular rhythm Respiratory/Chest: lungs clear Abdomen: other - tenderness to palpation Extremities: normal inspection Neurologic: alert, responsive Skin: warm/dry ZEDNER,SHA N. P.A. Aug 17, 2016 09:47
[2016-08-17 11:41] VITALS: BP 149/97
--- NOTE | 2016-08-17 13:34 | General Progress Note ---
Assessment/Plan Status: stable Status Narrative CR 2.2 Assessment/Plan status: Septic Shock leading to acute renal failure- Cr peaked 4.8 now down to 2.6 Abdominal Surgery 07/26/16 then again 05/27 and revision 08/02 Plan; off TPN No labs today on flomax- on lopressor post op care- Antibiotics- Protonix monitor renal parameters- per GI / Surgeon Favor transfusion as needed Subjective ROS Limited/Unobtainable: No Allergies: Coded Allergies: No Known Allergies (Unverified , 07/26/16) Objective Last 24 Hour Vital Signs Date Time Temp Pulse Resp B/P Pulse Ox O2 Delivery O2 Flow Rate FiO2 08/17/16 11:41 98.2 70 20 149/97 99 Room Air 08/17/16 09:40 84 148/97 08/17/16 09:39 84 148/97 08/17/16 08:08 98.0 84 20 148/97 99 Room Air 08/17/16 04:00 97.9 77 20 155/95 98 Room Air 08/17/16 00:49 97.9 73 20 147/98 99 Room Air 08/16/16 21:39 79 151/96 08/16/16 20:00 97.9 79 18 151/96 100 Room Air 08/16/16 15:48 97.0 73 20 150/91 98 Room Air Intake and Output 08/16/16 08/17/16 19:00 07:00 Intake Total 810 ml 460 ml Balance 810 ml 460 ml Intake Oral 600 ml 220 ml IV Total 210 ml 240 ml # Voids 2 3 Laboratory Tests 08/17/16 05:30: White Blood Count 8.0, Red Blood Count 2.70L, Hemoglobin 8.2L, Hematocrit 24.4L , Mean Corpuscular Volume 90, Mean Corpuscular Hemoglobin 30.2, Mean Corpuscular Hemoglobin Concent 33.4, Red Cell Distribution Width 13.3, Platelet Count 263, Mean Platelet Volume 7.3, Neutrophils (%) (Auto) 67.3, Lymphocytes (% ) (Auto) 12.6L, Monocytes (%) (Auto) 11.2H, Eosinophils (%) (Auto) 5.4H, Basophils (%) (Auto) 3.5H, Sodium Level 137, Potassium Level 3.8, Chloride Level 99, Carbon Dioxide Level 22, Anion Gap 16H, Blood Urea Nitrogen 21, Creatinine 2.2H, Estimat Glomerular Filtration Rate 30.2, Glucose Level 131H, Uric Acid 3.3, Calcium Level 8.6, Phosphorus Level 3.5, Magnesium Level 1.6L, Total Bilirubin 0.9, Aspartate Amino Transf (AST/SGOT) 66H, Alanine Aminotransferase (ALT/SGPT) 97H, Alkaline Phosphatase 204H, C-Reactive Protein, Quantitative 0.8H, Pro-B-Type Natriuretic Peptide 275H, Total Protein 6.8, Albumin 3.0L, Globulin 3.8, Albumin/Globulin Ratio 0.7L, Triglycerides Level 173H, Cholesterol Level 158, LDL Cholesterol 102H, HDL Cholesterol 21, Cholesterol/HDL Ratio 7.5H General Appearance: no apparent distress Objective no other changes in PE REBECCA SCHULTE Aug 17, 2016 13:34
[2016-08-17 16:00] VITALS: BP 146/96
--- NOTE | 2016-08-17 16:46 | General Progress Note ---
Assessment/Plan Problem List: (1) Ileus ICD Codes: K56.7 - Ileus, unspecified SNOMED: 089663342 (2) Sepsis ICD Codes: A41.9 - Sepsis, unspecified organism SNOMED: 69271553 (3) Abdominal pain ICD Codes: R10.9 - Unspecified abdominal pain SNOMED: 91107173 (4) SBO (small bowel obstruction) ICD Codes: K56.69 - Other intestinal obstruction SNOMED: 041975413 (5) Abdominal gas pain ICD Codes: R14.1 - Gas pain SNOMED: 83955848 (6) Enteritis ICD Codes: K52.9 - Noninfective gastroenteritis and colitis, unspecified SNOMED: 46800975 Status: progressing Assessment/Plan family insists on dc today so i gave following dc order dc home w hh per family request if ok w dr nicole and dr zee and dr colon given his anemia family and patient declined marcela eval as well as snf they only want home Subjective Gastrointestinal/Abdominal: Reports: abdominal pain Allergies: Coded Allergies: No Known Allergies (Unverified , 07/26/16) Objective Last 24 Hour Vital Signs Date Time Temp Pulse Resp B/P Pulse Ox O2 Delivery O2 Flow Rate FiO2 08/17/16 16:00 97.9 79 22 146/96 98 Room Air 08/17/16 11:41 98.2 70 20 149/97 99 Room Air 08/17/16 09:40 84 148/97 08/17/16 09:39 84 148/97 08/17/16 08:08 98.0 84 20 148/97 99 Room Air 08/17/16 04:00 97.9 77 20 155/95 98 Room Air 08/17/16 00:49 97.9 73 20 147/98 99 Room Air 08/16/16 21:39 79 151/96 08/16/16 20:00 97.9 79 18 151/96 100 Room Air Intake and Output 08/16/16 08/17/16 19:00 07:00 Intake Total 810 ml 490 ml Balance 810 ml 490 ml Intake Oral 600 ml 220 ml IV Total 210 ml 270 ml # Voids 2 3 Laboratory Tests 08/17/16 05:30: White Blood Count 8.0, Red Blood Count 2.70L, Hemoglobin 8.2L, Hematocrit 24.4L , Mean Corpuscular Volume 90, Mean Corpuscular Hemoglobin 30.2, Mean Corpuscular Hemoglobin Concent 33.4, Red Cell Distribution Width 13.3, Platelet Count 263, Mean Platelet Volume 7.3, Neutrophils (%) (Auto) 67.3, Lymphocytes (% ) (Auto) 12.6L, Monocytes (%) (Auto) 11.2H, Eosinophils (%) (Auto) 5.4H, Basophils (%) (Auto) 3.5H, Sodium Level 137, Potassium Level 3.8, Chloride Level 99, Carbon Dioxide Level 22, Anion Gap 16H, Blood Urea Nitrogen 21, Creatinine 2.2H, Estimat Glomerular Filtration Rate 30.2, Glucose Level 131H, Uric Acid 3.3, Calcium Level 8.6, Phosphorus Level 3.5, Magnesium Level 1.6L, Total Bilirubin 0.9, Aspartate Amino Transf (AST/SGOT) 66H, Alanine Aminotransferase (ALT/SGPT) 97H, Alkaline Phosphatase 204H, C-Reactive Protein, Quantitative 0.8H, Pro-B-Type Natriuretic Peptide 275H, Total Protein 6.8, Albumin 3.0L, Globulin 3.8, Albumin/Globulin Ratio 0.7L, Triglycerides Level 173H, Cholesterol Level 158, LDL Cholesterol 102H, HDL Cholesterol 21, Cholesterol/HDL Ratio 7.5H Teo Love MD Aug 17, 2016 16:46
[2016-08-17] MEDS: Dextrose 10%/0.9% SOD CHL 1,000 ML IV SCH (17:00)
--- NOTE | 2016-08-17 17:06 | Cardiac Electrophysiology PN ---
Assessment/Plan Assessment/Plan 1. Troponin leak due to demand ischemia and renal failure.No chest pain. ECG and Echo were normal.Continue Lopressor. 2. S/P Septic shock due to small bowel obstruction and gangrene. Off pressors.On iv fluid and antibiotics. WBC 11.5. 3. HTN.On Lopressor 50 bid and Norvasc 5 mg. 4. Small bowel obstruction status post laparotomy and small bowel resection. S/ P 3rd surgery on 08/02/16. 5. Respiratory failure. 6. Renal failure, creatinine 2.2 today DW RN Subjective Subjective No chest pain or SOB .Getting ready to be discharged. Son in law at bedside. Objective Last 24 Hour Vital Signs Date Time Temp Pulse Resp B/P Pulse Ox O2 Delivery O2 Flow Rate FiO2 08/17/16 16:00 97.9 79 22 146/96 98 Room Air 08/17/16 11:41 98.2 70 20 149/97 99 Room Air 08/17/16 09:40 84 148/97 08/17/16 09:39 84 148/97 08/17/16 08:08 98.0 84 20 148/97 99 Room Air 08/17/16 04:00 97.9 77 20 155/95 98 Room Air 08/17/16 00:49 97.9 73 20 147/98 99 Room Air 08/16/16 21:39 79 151/96 08/16/16 20:00 97.9 79 18 151/96 100 Room Air Intake and Output 08/16/16 08/17/16 19:00 07:00 Intake Total 810 ml 490 ml Balance 810 ml 490 ml Intake Oral 600 ml 220 ml IV Total 210 ml 270 ml # Voids 2 3 Laboratory Tests Test 08/17/16 05:30 White Blood Count 8.0 K/UL (4.8-10.8) Red Blood Count 2.70 M/UL (4.70-6.10) L Hemoglobin 8.2 G/DL (14.2-18.0) L Hematocrit 24.4 % (42.0-52.0) L Mean Corpuscular Volume 90 FL (80-99) Mean Corpuscular Hemoglobin 30.2 PG (27.0-31.0) Mean Corpuscular Hemoglobin Concent 33.4 G/DL (32.0-36.0) Red Cell Distribution Width 13.3 % (11.6-14.8) Platelet Count 263 K/UL (150-450) Mean Platelet Volume 7.3 FL (6.5-10.1) Neutrophils (%) (Auto) 67.3 % (45.0-75.0) Lymphocytes (%) (Auto) 12.6 % (20.0-45.0) L Monocytes (%) (Auto) 11.2 % (1.0-10.0) H Eosinophils (%) (Auto) 5.4 % (0.0-3.0) H Basophils (%) (Auto) 3.5 % (0.0-2.0) H Sodium Level 137 mEQ/L (135-145) Potassium Level 3.8 mEQ/L (3.4-4.9) Chloride Level 99 mEQ/L (98-107) Carbon Dioxide Level 22 mEQ/L (20-30) Anion Gap 16 (5-15) H Blood Urea Nitrogen 21 mg/dL (7-23) Creatinine 2.2 mg/dL (0.7-1.2) H Estimat Glomerular Filtration Rate 30.2 mL/min (>60) Glucose Level 131 mg/dL (74-106) H Uric Acid 3.3 mg/dL (3.0-7.5) Calcium Level 8.6 mg/dL (8.6-10.2) Phosphorus Level 3.5 mg/dL (2.5-4.8) Magnesium Level 1.6 mg/dL (1.7-2.5) L Total Bilirubin 0.9 mg/dL (0.0-1.2) Aspartate Amino Transf (AST/SGOT) 66 U/L (5-40) H Alanine Aminotransferase (ALT/SGPT) 97 U/L (3-41) H Alkaline Phosphatase 204 U/L (40-129) H C-Reactive Protein, Quantitative 0.8 mg/dL (< 0.5) H Pro-B-Type Natriuretic Peptide 275 pg/mL (0-125) H Total Protein 6.8 g/dL (6.6-8.7) Albumin 3.0 g/dL (3.5-5.2) L Globulin 3.8 g/dL Albumin/Globulin Ratio 0.7 (1.0-2.7) L Triglycerides Level 173 mg/dL (< 150) H Cholesterol Level 158 mg/dL (< 200) LDL Cholesterol 102 mg/dL (60-99) H HDL Cholesterol 21 mg/dL (> 60) Cholesterol/HDL Ratio 7.5 (3.3-4.4) H Objective HEAD AND NECK: No JVD. LUNGS: Clear CARDIOVASCULAR: Nl S1 and S2 with no gallop or murmur. ABDOMEN: Post median laparotomy.Tasia and Drains removed. EXTREMITIES: No pitting edema. HONEY DUKE Aug 17, 2016 17:06
--- NOTE | 2016-08-17 19:08 | Infectious Diseases Prog Note ---
Assessment/Plan Problems: (1) Septic shock Assessment & Plan: resolved , S/P three EXP LAP, due to anastomosis leak , S/ P revision , received long course of zyvox, zosyn and fluconazol, repeated blood culture remained negative , UA didn't show any evidence of infection , CXR showed atelectasis, he is doing well off antibiotics so far, recommend to monitor WBC off antibiotics for couple of days, but patient refused to stay any longer, discussed with son in law who was also interested to take him home, and said they have someone in the medical field to monitor him at home. I explained the risk and benefits to them and they understood . (2) SBO (small bowel obstruction) Assessment & Plan: S/P EXP LAP X 3 ,due to anastomosis leak , has ileus post OP but resolved , tolerated diet well , general surgery is following (3) Abdominal pain Assessment & Plan: improving, surgery is following, encourage walking (4) MIGNON (acute kidney injury) Assessment & Plan: improving, due to sepsis and hypotension, renal is following (5) Ileus Assessment & Plan: improving, due to repeated EXP LAP, encourage walking , avoid pain meds , surgery is following Subjective Constitutional: Denies: anorexia, chills, drenching sweats, fatigue, fever, no symptoms, other HEENT: Denies: congestion, coryza, dysphagia, hearing change, no symptoms, other, visual change Respiratory: Denies: dry cough, no symptoms, other, productive cough, shortness of breath Breasts: Denies: discharge, no symptoms, other, swelling, tenderness Cardiovascular: Denies: chest pain, dyspnea on exertion, no symptoms, other, palpitations Gastrointestinal/Abdominal: Denies: bloating, blood in stool, constipation, diarrhea, nausea, no symptoms, other, vomiting Genitourinary: Denies: dysuria, frequency, hematuria, no symptoms, nocturia, other Neurologic: Denies: confusion, headache, no symptoms, numbness, other, weakness Psychiatric: Denies: anxiety, depression, no symptoms, other Endocrine: Denies: feels cold, feels warm, no symptoms, other Hematologic: Denies: bleeding, no symptoms, other, swollen lymph nodes Musculoskeletal: Denies: no symptoms, other, pain, stiffness, swelling Allergies: Coded Allergies: No Known Allergies (Unverified , 07/26/16) Subjective he was doing well, tolerated diet well, and had bowel movement t, denied any fever or chills, no cough or SOB. surgical wound looks clean and intact with no skin erythema Objective Vital Signs Last 24 Hour Vital Signs Date Time Temp Pulse Resp B/P Pulse Ox O2 Delivery O2 Flow Rate FiO2 08/17/16 16:00 97.9 79 22 146/96 98 Room Air 08/17/16 11:41 98.2 70 20 149/97 99 Room Air 08/17/16 09:40 84 148/97 08/17/16 09:39 84 148/97 08/17/16 08:08 98.0 84 20 148/97 99 Room Air 08/17/16 04:00 97.9 77 20 155/95 98 Room Air 08/17/16 00:49 97.9 73 20 147/98 99 Room Air 08/16/16 21:39 79 151/96 08/16/16 20:00 97.9 79 18 151/96 100 Room Air General Appearance: WD/WN, no acute distress HEENT: normocephalic, atraumatic, anicteric, mucous membranes moist, PERRL Respiratory/Chest: chest wall non-tender, lungs clear, normal breath sounds, no respiratory distress, no accessory muscle use Cardiovascular: normal peripheral pulses, normal rate, regular rhythm, no gallop/murmur, no JVD Abdomen: normal bowel sounds, soft, non tender, no organomegaly, non distended , no mass, no scars, other - midline surgical wound well healed, clean and dry. Extremities: no cyanosis, no clubbing Skin: no rash, no lesions, no ulcers Laboratory Tests Test 08/17/16 05:30 White Blood Count 8.0 K/UL (4.8-10.8) Red Blood Count 2.70 M/UL (4.70-6.10) L Hemoglobin 8.2 G/DL (14.2-18.0) L Hematocrit 24.4 % (42.0-52.0) L Mean Corpuscular Volume 90 FL (80-99) Mean Corpuscular Hemoglobin 30.2 PG (27.0-31.0) Mean Corpuscular Hemoglobin Concent 33.4 G/DL (32.0-36.0) Red Cell Distribution Width 13.3 % (11.6-14.8) Platelet Count 263 K/UL (150-450) Mean Platelet Volume 7.3 FL (6.5-10.1) Neutrophils (%) (Auto) 67.3 % (45.0-75.0) Lymphocytes (%) (Auto) 12.6 % (20.0-45.0) L Monocytes (%) (Auto) 11.2 % (1.0-10.0) H Eosinophils (%) (Auto) 5.4 % (0.0-3.0) H Basophils (%) (Auto) 3.5 % (0.0-2.0) H Sodium Level 137 mEQ/L (135-145) Potassium Level 3.8 mEQ/L (3.4-4.9) Chloride Level 99 mEQ/L (98-107) Carbon Dioxide Level 22 mEQ/L (20-30) Anion Gap 16 (5-15) H Blood Urea Nitrogen 21 mg/dL (7-23) Creatinine 2.2 mg/dL (0.7-1.2) H Estimat Glomerular Filtration Rate 30.2 mL/min (>60) Glucose Level 131 mg/dL (74-106) H Uric Acid 3.3 mg/dL (3.0-7.5) Calcium Level 8.6 mg/dL (8.6-10.2) Phosphorus Level 3.5 mg/dL (2.5-4.8) Magnesium Level 1.6 mg/dL (1.7-2.5) L Total Bilirubin 0.9 mg/dL (0.0-1.2) Aspartate Amino Transf (AST/SGOT) 66 U/L (5-40) H Alanine Aminotransferase (ALT/SGPT) 97 U/L (3-41) H Alkaline Phosphatase 204 U/L (40-129) H C-Reactive Protein, Quantitative 0.8 mg/dL (< 0.5) H Pro-B-Type Natriuretic Peptide 275 pg/mL (0-125) H Total Protein 6.8 g/dL (6.6-8.7) Albumin 3.0 g/dL (3.5-5.2) L Globulin 3.8 g/dL Albumin/Globulin Ratio 0.7 (1.0-2.7) L Triglycerides Level 173 mg/dL (< 150) H Cholesterol Level 158 mg/dL (< 200) LDL Cholesterol 102 mg/dL (60-99) H HDL Cholesterol 21 mg/dL (> 60) Cholesterol/HDL Ratio 7.5 (3.3-4.4) H Current Medications Medications (Trade) Dose Ordered Sig/Arti Route PRN Reason Start Time Stop Time Status Last Admin Dose Admin Acetaminophen (Tylenol) 650 mg Q4H PRN RECTAL FEVER>100.5 08/03/16 19:00 09/02/16 18:59 Amlodipine Besylate 5 mg 5 mg DAILY ORAL 08/15/16 09:00 09/14/16 08:59 08/17/16 09:40 Dextrose (D10w) 1,000 ml @ 0 mls/hr Q24H PRN IV PN interrupted or unavailable 08/03/16 21:00 09/02/16 20:59 Dextrose (Dextrose 50%) STAT PRN IV Hypoglycemia 08/03/16 19:00 09/02/16 18:59 Dextrose/Sodium Chloride (D10ns) 1,000 ml @ 30 mls/hr Q24H IV 08/15/16 17:00 09/14/16 16:59 08/16/16 17:47 Enoxaparin Sodium (Lovenox) 30 mg Q12HR SUBQ 08/17/16 21:00 09/16/16 20:59 Metoprolol Tartrate (Lopressor) 50 mg Q12HR ORAL 08/08/16 21:00 09/07/16 20:59 08/17/16 09:39 Neomycin/ Polymyxin/ Bacitracin (Neosporin Oint 15gm) 1 applic BIDPRN PRN TOPIC apply areas where JPs removed 08/14/16 13:15 09/13/16 13:14 08/14/16 14:32 Ondansetron HCl (Zofran) 4 mg Q6H PRN IVP Nausea & Vomiting 08/03/16 19:10 09/02/16 19:09 Pantoprazole (Protonix) 40 mg DAILY ORAL 08/16/16 13:45 09/15/16 13:44 08/17/16 09:40 Simethicone (Mylicon) 80 mg QIDPRN PRN NG GAS PAIN 08/03/16 19:00 09/02/16 18:59 08/14/16 16:29 Tamsulosin HCl (Flomax) 0.4 mg BID ORAL 08/08/16 18:00 09/07/16 17:59 08/17/16 18:44 Tramadol HCl (Ultram) 50 mg Q4H PRN ORAL For Pain 08/12/16 12:15 08/19/16 12:14 08/15/16 17:34 Piyush Harris M.D. Aug 17, 2016 19:08
--- NOTE | 2016-08-17 20:53 | General Progress Note ---
Assessment/Plan Assessment/Plan ASSESSMENT: 1. Leukocytosis likely 2/2 underlying sepsis vs reactive. Has improved overall 2. Small bowel obstruction. status post 3rd exploratory laparotomy; s/p resection gangrene 3. Anemia 2/2 chronic disease, does not require iron, potential slow bleed but unlikely 4. Sepsis, likely contributing to leukocytosis 5. Abdominal pain due to sbo 6. Thrombocytopenia - has slowly improved RECOMMENDATIONS: 1. Monitor counts 2. Does not require iron 3. Follow up on surgery, GI, ID recs 5. Transfuse to goal hgb >7 6. DVT ppx lovenox 7. GI ppx ppi 8. DW staff Thank you, Andrew Mendez MD Subjective Constitutional: Reports: no symptoms HEENT: Reports: no symptoms Cardiovascular: Reports: no symptoms Respiratory: Reports: no symptoms Gastrointestinal/Abdominal: Reports: poor appetite Genitourinary: Reports: no symptoms 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: Reports: no symptoms Endocrine: Reports: no symptoms Hematologic/Lymphatic: Reports: anemia Allergies: Coded Allergies: No Known Allergies (Unverified , 07/26/16) Subjective no bleeding, no hematochezia or hematemesis was reported, potentially to be discharged today Objective Last 24 Hour Vital Signs Date Time Temp Pulse Resp B/P Pulse Ox O2 Delivery O2 Flow Rate FiO2 08/17/16 16:00 97.9 79 22 146/96 98 Room Air 08/17/16 11:41 98.2 70 20 149/97 99 Room Air 08/17/16 09:40 84 148/97 08/17/16 09:39 84 148/97 08/17/16 08:08 98.0 84 20 148/97 99 Room Air 08/17/16 04:00 97.9 77 20 155/95 98 Room Air 08/17/16 00:49 97.9 73 20 147/98 99 Room Air 08/16/16 21:39 79 151/96 Intake and Output 08/16/16 08/17/16 19:00 07:00 Intake Total 810 ml 490 ml Balance 810 ml 490 ml Intake Oral 600 ml 220 ml IV Total 210 ml 270 ml # Voids 2 3 Laboratory Tests 08/17/16 05:30: White Blood Count 8.0, Red Blood Count 2.70L, Hemoglobin 8.2L, Hematocrit 24.4L , Mean Corpuscular Volume 90, Mean Corpuscular Hemoglobin 30.2, Mean Corpuscular Hemoglobin Concent 33.4, Red Cell Distribution Width 13.3, Platelet Count 263, Mean Platelet Volume 7.3, Neutrophils (%) (Auto) 67.3, Lymphocytes (% ) (Auto) 12.6L, Monocytes (%) (Auto) 11.2H, Eosinophils (%) (Auto) 5.4H, Basophils (%) (Auto) 3.5H, Sodium Level 137, Potassium Level 3.8, Chloride Level 99, Carbon Dioxide Level 22, Anion Gap 16H, Blood Urea Nitrogen 21, Creatinine 2.2H, Estimat Glomerular Filtration Rate 30.2, Glucose Level 131H, Uric Acid 3.3, Calcium Level 8.6, Phosphorus Level 3.5, Magnesium Level 1.6L, Total Bilirubin 0.9, Aspartate Amino Transf (AST/SGOT) 66H, Alanine Aminotransferase (ALT/SGPT) 97H, Alkaline Phosphatase 204H, C-Reactive Protein, Quantitative 0.8H, Pro-B-Type Natriuretic Peptide 275H, Total Protein 6.8, Albumin 3.0L, Globulin 3.8, Albumin/Globulin Ratio 0.7L, Triglycerides Level 173H, Cholesterol Level 158, LDL Cholesterol 102H, HDL Cholesterol 21, Cholesterol/HDL Ratio 7.5H General Appearance: no apparent distress EENT: TMs normal Neck: supple Cardiovascular: normal rate Respiratory/Chest: lungs clear Abdomen: soft Extremities: non-tender Edema: 1+ Leg (L), 1+ Leg (R) Neurologic: alert Skin: warm/dry Andrew Mendez Aug 17, 2016 20:53
[2016-08-17] MEDS ORDERED: Enoxaparin 30mg Inj SUBQ SCH (21:00)
--- NOTE | 2016-08-17 22:18 | General Progress Note ---
Assessment/Plan Assessment/Plan Assessment - SBO / gangrene - resected - septic shock - recovered - ATN - improving - abnormal LFT - s/p ex lap for anastomotic leak - Leukocytosis - improved - anemia, due to multiple surgeries and blood draws - mild elevated amylase/lipase, likely due to surgery - normal Pancreas on MRI Recommendations po diet transfuse PRN TPN - wean off abx PPI follow labs and exam surgical f/u OOB Subjective Allergies: Coded Allergies: No Known Allergies (Unverified , 07/26/16) Subjective patient seen earlier today No new complaints tolerating PO very weak Objective Last 24 Hour Vital Signs Date Time Temp Pulse Resp B/P Pulse Ox O2 Delivery O2 Flow Rate FiO2 08/17/16 16:00 97.9 79 22 146/96 98 Room Air 08/17/16 11:41 98.2 70 20 149/97 99 Room Air 08/17/16 09:40 84 148/97 08/17/16 09:39 84 148/97 08/17/16 08:08 98.0 84 20 148/97 99 Room Air 08/17/16 04:00 97.9 77 20 155/95 98 Room Air 08/17/16 00:49 97.9 73 20 147/98 99 Room Air Intake and Output 08/16/16 08/17/16 19:00 07:00 Intake Total 810 ml 490 ml Balance 810 ml 490 ml Intake Oral 600 ml 220 ml IV Total 210 ml 270 ml # Voids 2 3 Laboratory Tests 08/17/16 05:30: White Blood Count 8.0, Red Blood Count 2.70L, Hemoglobin 8.2L, Hematocrit 24.4L , Mean Corpuscular Volume 90, Mean Corpuscular Hemoglobin 30.2, Mean Corpuscular Hemoglobin Concent 33.4, Red Cell Distribution Width 13.3, Platelet Count 263, Mean Platelet Volume 7.3, Neutrophils (%) (Auto) 67.3, Lymphocytes (% ) (Auto) 12.6L, Monocytes (%) (Auto) 11.2H, Eosinophils (%) (Auto) 5.4H, Basophils (%) (Auto) 3.5H, Sodium Level 137, Potassium Level 3.8, Chloride Level 99, Carbon Dioxide Level 22, Anion Gap 16H, Blood Urea Nitrogen 21, Creatinine 2.2H, Estimat Glomerular Filtration Rate 30.2, Glucose Level 131H, Uric Acid 3.3, Calcium Level 8.6, Phosphorus Level 3.5, Magnesium Level 1.6L, Total Bilirubin 0.9, Aspartate Amino Transf (AST/SGOT) 66H, Alanine Aminotransferase (ALT/SGPT) 97H, Alkaline Phosphatase 204H, C-Reactive Protein, Quantitative 0.8H, Pro-B-Type Natriuretic Peptide 275H, Total Protein 6.8, Albumin 3.0L, Globulin 3.8, Albumin/Globulin Ratio 0.7L, Triglycerides Level 173H, Cholesterol Level 158, LDL Cholesterol 102H, HDL Cholesterol 21, Cholesterol/HDL Ratio 7.5H Objective WDWN man NCAT supple CTA RR abd flat, (+) midline wound trace edema ALVAREZ MARTINEZ Aug 17, 2016 22:18
--- NOTE | 2016-08-18 07:38 | Discharge Summary ---
DATE OF ADMISSION: 07/26/2016 DATE OF DISCHARGE: 08/17/2016 ADMITTING DIAGNOSIS: Small bowel obstruction. DISCHARGE DIAGNOSIS: Small bowel obstruction. OPERATION: 1. Exploratory laparotomy and release of volvulus of the small bowel, that was 07/26/2016. 2. exploratory laparotomy and small bowel dissection,on 07/27/2016. 3. Exploratory laparotomy and bowel resection on 08/02/2016. COMPLICATIONS: Anastomosis leak, resolved. REASON FOR ADMISSION: This is a 65-year-old [place] male who presented to the emergency room on 07/26/2016 complaining of abdominal pain since the day before the admission in the afternoon. The pain was located mainly at the periumbilical and was crampy. this pain was associated with nausea and vomiting. He claims that after the onset of the pain, he had a bowel movement. It should be noted that the patient has had appendectomy 20 years ago. PHYSICAL EXAMINATION: ABDOMEN: On admission showed the abdomen to be mildly distended, but soft. He had mild tenderness at the lower abdomen, but there was no rebound tenderness or guarding. CBC showed a WBC of 13,600 and the CAT scan of the abdomen was interpreted as small bowel obstruction. HOSPITAL COURSE: The patient was admitted to the hospital and was placed on conservative treatment. I had a long discussion with the radiologist, who felt that there was the possibility of internal hernia or maybe even volvulus of the small bowel and so the decision was made for exploratory laparotomy. This procedure was performed the same day on 07/26/2016, during which it was noticed that the patient had volvulus of the small bowel at the proximal part of the small bowel. The volvulus was released. The color of the small bowel, which was very cyanotic improved. It was pink, had peristalsis and so the procedure was terminated. The next day after this surgery, which was on 07/27/2016, the patient developed oliguria and finally it was noticed that the patient had septic shock. His blood pressure was low about systolic of 80 to 100 and his WBC was raised at 16,000. Physical examination showed acute abdomen, so he was immediately taken to the operating room and exploratory laparotomy was performed during which it was noticed that the patient had a gangrene of the small bowel, basically the distal half of the small bowel. It should be noted that during the first surgery, he had volvulus of the proximal part of the small bowel, but during the second surgery, he had the gangrene of the distal half, which was completely different from the area of the initial surgery. resection of the small bowel was performed and small bowel was anastomosed to the cecum and extensive lysis of the adhesion was performed and all the organs were placed in the appropriate area. Postoperative course was uneventful and the patient was progressing very nicely, but he was having a large amount of drainage from the drain. The WBC, which was returning to normal, after four or five days started climbing . He was complaining of abdominal pain and finally he was started on a clear liquid diet, but he was having pain, so a CAT scan with by mouth contrast was performed, which showed a leakage from the anastomosis. So again, the decision was made for another surgery on 08/02/2016. It should be noted that the patient had small leakage and it seemed to be contained, but considering the poor circulation of his bowels and his condition, it was decided that it is safer not to perform a conservative treatment and he was scheduled for another exploratory laparotomy. During this surgery, it was noticed that the bowels were very nice and pink, but he had small opening at the tip of the anastomosis and it seems that the cristy misfired. It seemed that the staple at this area has failed and the pathology later showed that there was necrosis in this area, which caused that leakage. Again, resection of the anastomosis was performed and the small bowel was anastomosed to the ascending colon, as the patient had spillage of the feces under the mesentery, which was cleaned up as much as possible. Postoperative course was uneventful and gradually the WBC returned to normal. Finally, the patient started having bowel movement, but despite of the bowel movement, he was kept NPO for six days, after which, he was started on clear liquid diet and gradually advanced to regular diet. At the time of this dictation, the patient is afebrile, tolerating regular diet. He is having loose bowel movements, and his abdomen is soft, flat, and nontender. The incision has healed very well without any signs of infection. The drains have been removed and the cristy have been removed. Dr. Love decided to transfer the patient to a usp, but the patient and the family insisted to go home and I did not see any reason to keep the patient anymore. Everything seems to be normal and his creatinine after the second surgery was about 4 and is very slowly returning to normal. Again, he is afebrile, tolerating regular diet with loose bowel movement. His physical examination is normal. WBC is normal. So, at this time, he will be discharged to home, to be followed in my office in two weeks. DISCHARGE MEDICATIONS: Previous medicine for hypertension, and antibiotic per Infectious Disease specialist. CONDITION: Condition of the patient at the time of discharge improved and follow up in two weeks. The patient has been instructed to follow up with the GI specialist especially for his gastrointestinal symptoms. The patient had been instructed about his diet, activities, showering, and medication. Wisam Murrieta M.D. DR: SANTIAGO JOB#: [id number] CC: DIANA
--- NOTE | 2016-08-19 06:27 | Discharge Summary 2 SIG ---
DATE OF ADMISSION: 07/26/2016 DATE OF DISCHARGE: 08/17/2016 This is an addendum to the discharge summary by Dr. Murrieta. FINAL DIAGNOSES: 1. Septic shock. 2. Small bowel obstruction status post exploratory laparotomy x3. 3. Acute kidney injury. 4. Postop ileus. 5. Acute tubular necrosis. 6. Abnormal liver transaminases. 7. Acute anemia due to multiple surgeries and blood draw. 8. Mildly elevated amylase/lipase likely due to surgery. Normal pancreas on MRI. 9. Troponin leak due to demand ischemia and renal failure. 10. Hypertension. 11. Enteritis. 12. Gangrene of the small bowel. 13. Anemia of chronic disease. 14. Thrombocytopenia. Teo Love M.D. I have been assigned to dictate discharge summary on this account and I was not involved in the patient's management. Abigail Devine N.P. DR: MARNIE JOB#: [id number] CC:
== END 2016-08-17 19:00 | disposition home health service (06) | DRG 853 ==
LOC: EDBD 00:45 → EMR 01:08 → 4E 02:23 → EDBEDREQ 03:46 → ICU 07-27 12:48 → 2W 07-29 11:34 → 3E 08-01 03:55 → ICU 08-03 00:09 → 3E 08-03 19:12
PROC: 0DN80ZZ Release Small Intestine, Open Approach (ICD-10-PCS; principal; 2016-07-26 19:30)
PROC: 0DNW0ZZ Release Peritoneum, Open Approach (ICD-10-PCS; 2016-07-27)
PROC: 0DT80ZZ Resection of Small Intestine, Open Approach (ICD-10-PCS; 2016-07-27)
PROC: 0DQN0ZZ Repair Sigmoid Colon, Open Approach (ICD-10-PCS; 2016-08-02)
PROC: 0DT80ZZ Resection of Small Intestine, Open Approach (ICD-10-PCS; 2016-08-02)
DX: A41.9 Sepsis, unspecified organism (principal); K56.2 Volvulus; K55.029 Acute infarction of small intestine, extent unspecified; I21.4 Non-ST elevation (NSTEMI) myocardial infarction; R65.21 Severe sepsis with septic shock; N17.0 Acute kidney failure with tubular necrosis; E11.22 Type 2 diabetes mellitus with diabetic chronic kidney disease; D69.6 Thrombocytopenia, unspecified; K56.7 Ileus, unspecified; K91.89 Other postprocedural complications and disorders of digestive system; K91.71 Accidental puncture and laceration of a digestive system organ or structure during a digestive system procedure; I12.9 Hypertensive chronic kidney disease with stage 1 through stage 4 chronic kidney disease, or unspecified chronic kidney disease; N18.9 Chronic kidney disease, unspecified; E86.0 Dehydration; J45.909 Unspecified asthma, uncomplicated; N40.0 Benign prostatic hyperplasia without lower urinary tract symptoms; R00.0 Tachycardia, unspecified; D64.9 Anemia, unspecified; K66.0 Peritoneal adhesions (postprocedural) (postinfection); K52.9 Noninfective gastroenteritis and colitis, unspecified
CPT/HCPCS: 36415; 36600; 71010; 74000; 74176; 74177; 74181; 76775; 80048; 80053; 80061; 81001; 81003; 82150; 82248; 82436; 82533; 82550; 82553; 82565; 82728; 82803; 82962; 82977; 83036; 83540; 83550; 83605; 83690; 83735; 83880; 83930; 83935; 84100; 84133; 84300; 84439; 84443; 84481; 84484; 84520; 84550; 85007; 85025; 85044; 85060; 85610; 85730; 86140; 86850; 86900; 86901; 86920; 87040; 87045; 87070; 87075; 87205; 87493; 89050; 93005; 93306; 94002; 94003; 94150; 94664; 94760; J1815; J2250; J2405; J2710; J2765; J8499; S0077

== ENCOUNTER 2016-08-21 11:13 | Inpatient (IN) | payer MEDICARE, MEDICAID ==
[~2016-08-21] VITALS: Ht 167.6 cm; Wt 72.6 kg
[~2016-08-21 11:13] MED LIST: DEXTROSE 50%-WA50 M1 IV; FLUCONAZOL200 MG/100 IV; INTRALIPID250 ML IV; LINEZOLID-600 MG/300 IV; LOVENOX10 MG SUBQ; METOPROLOL SUCC50 MG ORAL; NKM; NORVASC5 MG ORAL; NOVOLOG100 UNIT/3 SUBQ; PROTONIX IV40 MG IV; SIMETHICONE80 MG ORAL; TAMSULOSIN HCL0.4 MG ORAL; TRAMADOL HCL50 MG ORAL; TYLENOL325 MG ORAL; ZOFRAN 4 MG4 MG/2 ML IV; ZOSYN 3.373.375 GM/1 IVPB
--- NOTE | 2016-08-21 11:41 | Emergency Room Report ---
History of Present Illness General Chief Complaint: Abdominal Pain Source: Patient, Family Member, Medical Record Present Illness HPI 65 YOM Walk-in patient with watery diarrhea, abd pain for a few days s/p discharge 2/2 after exLap for SBO and anastmasosi resection. Son-in-law states family tried PO feeding patient recently, symptoms started after that. Patient states pain is "all over" abdomen, cant localize it. Denies constipation, urinary complaints, fever/chills, nausea/vomiting. Patient states only DC with tramadol, no HTN meds which he hasnt taken. Denies pain is worse with eating. Pain slightly better leaning forward. Allergies: Coded Allergies: No Known Allergies (Unverified , 07/26/16) Patient History Past Medical History: HTN Past Surgical History: other - exlap, SBO Pertinent Family History: none Social History: Denies: alcohol use, drug use, smoking Immunizations: UTD Reviewed Nursing Documentation: PMH: Agreed, PSxH: Agreed Nursing Documentation-PMH Past Medical History: No History, Except For Hx Cardiac Problems: No Hx Cancer: No Hx Gastrointestinal Problems: Yes - Appendicitis; SBO Hx Neurological Problems: No Review of Systems All Other Systems: negative except mentioned in HPI Physical Exam Vital Signs Date Time Temp Pulse Resp B/P Pulse Ox O2 Delivery O2 Flow Rate FiO2 08/21/16 11:31 98.4 104 18 153/88 98 Room Air Sp02 EP Interpretation: reviewed, normal General Appearance: normal inspection, alert, GCS 15, non-toxic, mild distress , Chronically Ill Head: normocephalic, atraumatic Eyes: bilateral eye EOMI, bilateral eye PERRL ENT: normal ENT inspection, hearing grossly normal, normal voice Neck: normal inspection, full range of motion, supple, no bony tend Respiratory: normal inspection, lungs clear, normal breath sounds, no respiratory distress, no retraction, no wheezing Cardiovascular #1: regular rate, rhythm, no edema Gastrointestinal: soft, non-distended, no guarding, no hernia, no pulsatile mass, no rebound, other - Multiple scars: Midline central exLap scar with well healing tissue; steri-strips in place. Non-tender at site, no erythema or sign of infection. No palablpe hematoma or seroma under inicion site. Bilateral healing wounds from drainage pipes; non-tender and no sign of assoc infection. Mild ttp to right LQ. No rebound, guarding or peritoneal signs. Genitourinary: no CVA tenderness Musculoskeletal: normal inspection, back normal, normal range of motion, Juarez' s Sign negative Neurologic: normal inspection, alert, oriented x3, responsive, studio designer III-XII nml as tested, motor strength/tone normal, speech normal Psychiatric: normal inspection, judgement/insight normal, mood/affect normal Skin: normal inspection, normal color, no rash Lymphatic: normal inspection Medical Decision Making Diagnostic Impression: Primary Impression: Abdominal pain Qualified Codes: R10.9 - Unspecified abdominal pain Additional Impression: Watery diarrhea ER Course 65 YO M with watery diarrhea, abd pain s/p multiple recent abd surgeries. VSS. Afebrile. Mild focal ttp RLQ DDx ileus, SBO, infection, Cdiff PLAN: Labs, lactate, UA, troponin, ECG, IVF hydration, reassess EKG Diagnostic Results Rate: tachycardiac Rhythm: NSR ST Segments: no acute changes ASA given to the pt in ED: No Rhythm Strip Diag. Results EP Interpretation: yes Rate: 104 Rhythm: NSR, no PVC's, no ectopy Reevaluation Time: 12:39 Last Vital Signs Date Time Temp Pulse Resp B/P Pulse Ox O2 Delivery O2 Flow Rate FiO2 08/21/16 11:31 98.4 104 18 153/88 98 Room Air Status: improved Reevaluation Impression labs: Leuks 16k. SerumCr elevation is at baseline. Lipase also elevated, but was seen on previous admission admission (MRI did not show pancreatitis). Lactate normal. Troponin 0. CXR: No PNA. UA negative for infection A: Leukocytosis is new since DC. No obvious source. Will do CTAP as well send CDIFF assay Empiric Vanc/Zosyn, and tylneol given for sepsis 2L IVF bolus given as well Endorsed to Dr Rai for admission at 1242pm for tele Disposition: ADMITTED INPATIENT Condition: Serious Referrals: REBECCA RAI (PCP) KATY BULLARD M.D. Aug 21, 2016 11:41
[2016-08-21] MEDS ORDERED: Tubing IV Cassette IV ONE ×2 (11:50→12:24)
[2016-08-21 11:51] LABS: BASOPHILS % (AUTO) 1.5 % (0.0-2.0); EOSINOPHILS % (AUTO) 2.9 % (0.0-3.0); LYMPHOCYTES % (AUTO) 7.7 % (20.0-45.0); MEAN CORPUSCULAR HEMOGLOBIN 29.8 PG (27.0-31.0); MEAN CORPUSCULAR HGB CONC 32.9 G/DL (32.0-36.0); MEAN CORPUSCULAR VOLUME 91 FL (80-99); MEAN PLATELET VOLUME 6.4 FL (6.5-10.1); MONOCYTES % (AUTO) 7.7 % (1.0-10.0); NEUTROPHILS % (AUTO) 80.3 % (45.0-75.0); PLATELET COUNT 414 K/UL (150-450); RED BLOOD COUNT 3.51 M/UL (4.70-6.10); RED CELL DISTRIBUTION WIDTH 14.7 % (11.6-14.8); WHITE BLOOD COUNT 16.2 K/UL (4.8-10.8)
[2016-08-21 12:00] VITALS: BP 159/98
[2016-08-21 12:02] LABS: ALBUMIN/GLOBULIN RATIO 0.8 (1.0-2.7); CALCIUM 8.8 mg/dL (8.6-10.2); CREATININE 2.1 mg/dL (0.7-1.2); GLOMERULAR FILTRATION RATE 31.9 mL/min (>60); POTASSIUM 3.6 mEQ/L (3.4-4.9); TOTAL PROTEIN 8.3 g/dL (6.6-8.7)
[2016-08-21 12:03] LABS: TROPONIN I < 0.30 ng/mL (<=0.30)
[2016-08-21] MEDS ORDERED: Vancomycin 1.5 GM in D5W 325 ML IVPB STA (12:05)
[2016-08-21] MEDS ORDERED: Piperacillin/Tazobactam 3.375 GM in NS 110 ML IVPB ONE (12:15)
[2016-08-21] MEDS ORDERED: Zosyn 3.375gm inj ONE (12:24)
[2016-08-21] MEDS ORDERED: NS 110 ML ONE (12:24)
[2016-08-21] MEDS ORDERED: Vancomycin 1.5gm/D5W 300ml 300 ML IVPB ONE (12:25)
[2016-08-21 12:30] LABS: APPEARANCE,URINE CLEAR; KETONES,URINE NEGATIVE (NEGATIVE); LEUKOCYTE ESTERASE ,URINE NEGATIVE (NEGATIVE); NITRITE,URINE NEGATIVE (NEGATIVE); PH,URINE 5 (4.5-8.0); PROTEIN,URINE 1+ (NEGATIVE); UROBILINOGEN,URINE NORMAL MG/DL (0.0-1.0)
[2016-08-21 12:31] LABS: BACTERIA,URINE FEW /HPF; MUCUS,URINE FEW /LPF (NONE/OCC); SQUAMOUS EPITHELIAL CELL,UR OCCASIONAL /LPF (NONE/OCC); WBC,URINE 0-2 /HPF (0 - 0)
[2016-08-21] MEDS ORDERED: Gastrograffin 30ml ORAL STA (12:37)
--- NOTE | 2016-08-21 12:46 | History & Physical ---
History and Physical History & Physicial abdominal pain fever 101 diarrhea leukocytosis h/o HTN h/o Septic Shock leading to acute renal failure- Cr peaked 4.8 now down to 2.2 Abdominal Surgery 07/26/16 then again 05/27 and revision 08/02 Plan; NPO- Stool C Diff PO Vanco IV Flagyl IV Protonix ID eval Pain meds- BP meds # [id number] REBECCA SCHULTE Aug 21, 2016 12:46
[2016-08-21] MEDS: Vancomycin oral 125mg/2.5ml ORAL SCH ×3 (13:00→21:07)
[2016-08-21] MEDS ORDERED: Metoprolol 25mg tab ORAL ONE (13:00)
[2016-08-21 13:16] VITALS: BP 146/92
[2016-08-21] MEDS ORDERED: Vancomycin 1.5gm/D5W 300ml 300 ML IVPB SCH (13:45)
[2016-08-21] MEDS: D5NS 1,000 ML IV SCH ×2 (13:58→17:28)
[2016-08-21 14:00] VITALS: BP 142/93
[2016-08-21] MEDS ORDERED: NKM (14:33)
--- NOTE | 2016-08-21 15:54 | Diagnostic Imaging Report ---
Indication: Abdominal pain, history of watery diarrhea Technique: Spiral acquisitions obtained through the abdomen and pelvis. Patient given oral contrast. No IV contrast utilized, per referring physician request.. Multiplanar reconstructions were generated. Total dose length product 62 mGycm. CTDIvol(s) 12 mGy Comparison: 08/05/2016 Findings: Contrast is seen throughout the entirety of the colon. Again demonstrated is an anastomotic staple line involving the ascending colon and extending into the right lower quadrant mesenteric fat. Adjacent to the staple line, a few small gas bubbles are seen in within the mesenteric root. These gas bubbles were not evident previously, although a few small bubbles of extraluminal gas were evident in the right paracolic gutter and anterior peritoneal space on the prior study. No evidence of contrast extravasation is demonstrated. No discrete fluid collections appear to be associated with the gas bubbles. Adjacent to the gas and the medial extent of the anastomotic staple line, there is a small area of nonspecific soft tissue attenuation which measures approximately 2 x 1.5 cm. Previously demonstrated surgical drains in this area have been removed. There is again demonstrated extensive infiltration of the fat of the mesenteric root, presumably inflammatory changes related to the recent surgery. This appears to decreased slightly since the prior study Previously demonstrated skin cristy have been removed has resolved. No definite focal fluid collections to suggest abscess are evident, although evaluation for such is limited in the absence of IV contrast. No small bowel distention or small bowel wall thickening is evident. There is apparent mild wall thickening of the gastric fundus which is probably artifact of under distention. Previously demonstrated nasogastric tube has been removed. The duodenum is unremarkable. There is suggestion of slight wall thickening of the distal esophagus. The lack of IV contrast limits assessment of solid organs. The liver, gallbladder, bile ducts, pancreas, spleen, are unremarkable. Again demonstrated is a 2 mm calculus in the lower pole of the right kidney. Again demonstrated are multiple pole left renal calyceal calculi, largest measuring approximately 6 mm diameter. No hydronephrosis. Previously demonstrated Canales catheter has been removed. The bladder demonstrates equivocal mild wall thickening. Previously demonstrated bladder air is no longer evident. The prostate is somewhat prominent, contains calcifications and slightly heterogeneous attenuation. Previously demonstrated subcutaneous edema is largely resolved. The included lung bases demonstrate some posterior dependent atelectatic changes on the right. The bones are unremarkable. Impression: Postsurgical changes, as described Gas bubbles in the mesenteric root medial to the cecum. There are no discrete fluid collections and no contrast extravasation, so this is likely to be residual soft tissue gas related to recent surgery and surgical drain removal. However, while the prior exam showed extraluminal gas elsewhere in the abdomen, it showed only minimal (less than the current amount) gas in this area, so the possibility of low-grade leakage at the anastomosis most be considered. Consider further followup imaging as indication No evidence of small bowel obstruction. Equivocal slight wall thickening of the distal esophagus, mild esophagitis not excludable. Interim resolution of previously demonstrated ascites fluid and subcutaneous edema Interim nasogastric tube and Canales catheter removal Equivocal mild wall thickening of the bladder, probably artifact of under distention Mild prostatomegaly Nonobstructing bilateral lower pole renal calculi Minimal right basilar pulmonary atelectatic changes Clinical findings phoned to Dr. Singleton in the emergency room at the time of interpretation The CT scann -- er at [facility] is accredited by the [employer] and the scans are performed using protocols designed to limit radiation exposure to as low as reasonably achievable to attain images of sufficient resolution adequate for diagnostic evaluation.
[2016-08-21 15:55] VITALS: BP 145/92
[2016-08-21] MEDS ORDERED: metroNIDAZOLE 500mg 100 ML IVPB SCH (16:00)
--- NOTE | 2016-08-21 16:43 | Infectious Diseases Prog Note ---
Assessment/Plan Problems: (1) Sepsis Assessment & Plan: anastomosis leak VS C diff colitis, agree on oral vancomycin with iv flagyl for now , will send stool for culture and C diff toxin , blood culture, continue hydration , avoid PPI. (2) Watery diarrhea Assessment & Plan: short bowel syndrome VS C diff colitis, will send stool for C diff and culture, continue oral vancomycin with iv flagyl for possible sever C diff colitis (3) Leak of anastomosis between gastrointestinal structures Assessment & Plan: low grade as per CT which was done with oral contrast, general surgery is following (4) MIGNON (acute kidney injury) Assessment & Plan: continue fluids , monitor urine output and renal function test, avoid nephrotoxic meds , renal is following Subjective Allergies: Coded Allergies: No Known Allergies (Unverified , 07/26/16) Objective Vital Signs Last 24 Hour Vital Signs Date Time Temp Pulse Resp B/P Pulse Ox O2 Delivery O2 Flow Rate FiO2 08/21/16 15:55 98.1 95 19 145/92 100 Room Air 08/21/16 14:00 98.1 90 18 142/93 100 Room Air 08/21/16 13:16 92 19 146/92 100 Room Air 08/21/16 12:00 101.0 101 20 159/98 100 Room Air 08/21/16 11:31 98.4 104 18 153/88 98 Room Air Height (Feet): 5 Height (Inches): 6.00 Weight (Pounds): 160 Laboratory Tests Test 08/21/16 11:30 08/21/16 12:00 White Blood Count 16.2 K/UL (4.8-10.8) H Red Blood Count 3.51 M/UL (4.70-6.10) L Hemoglobin 10.4 G/DL (14.2-18.0) L Hematocrit 31.8 % (42.0-52.0) L Mean Corpuscular Volume 91 FL (80-99) Mean Corpuscular Hemoglobin 29.8 PG (27.0-31.0) Mean Corpuscular Hemoglobin Concent 32.9 G/DL (32.0-36.0) Red Cell Distribution Width 14.7 % (11.6-14.8) Platelet Count 414 K/UL (150-450) Mean Platelet Volume 6.4 FL (6.5-10.1) L Neutrophils (%) (Auto) 80.3 % (45.0-75.0) H Lymphocytes (%) (Auto) 7.7 % (20.0-45.0) L Monocytes (%) (Auto) 7.7 % (1.0-10.0) Eosinophils (%) (Auto) 2.9 % (0.0-3.0) Basophils (%) (Auto) 1.5 % (0.0-2.0) Sodium Level 134 mEQ/L (135-145) L Potassium Level 3.6 mEQ/L (3.4-4.9) Chloride Level 93 mEQ/L (98-107) L Carbon Dioxide Level 23 mEQ/L (20-30) Anion Gap 18 (5-15) H Blood Urea Nitrogen 16 mg/dL (7-23) Creatinine 2.1 mg/dL (0.7-1.2) H Estimat Glomerular Filtration Rate 31.9 mL/min (>60) Glucose Level 131 mg/dL (74-106) H Lactic Acid Level 1.10 mmol/L (0.66-2.22) Calcium Level 8.8 mg/dL (8.6-10.2) Total Bilirubin 1.0 mg/dL (0.0-1.2) Aspartate Amino Transf (AST/SGOT) 38 U/L (5-40) Alanine Aminotransferase (ALT/SGPT) 93 U/L (3-41) H Alkaline Phosphatase 232 U/L (40-129) H Troponin I < 0.30 ng/mL (<=0.30) Total Protein 8.3 g/dL (6.6-8.7) Albumin 3.7 g/dL (3.5-5.2) Globulin 4.6 g/dL Albumin/Globulin Ratio 0.8 (1.0-2.7) L Lipase 177 U/L (< 60) H Urine Color Yellow Urine Appearance Clear Urine pH 5 (4.5-8.0) Urine Specific [place] 1.015 (1.005-1.035) Urine Protein 1+ (NEGATIVE) H Urine Glucose (UA) Negative (NEGATIVE) Urine Ketones Negative (NEGATIVE) Urine Occult Blood 1+ (NEGATIVE) H Urine Nitrite Negative (NEGATIVE) Urine Bilirubin Negative (NEGATIVE) Urine Urobilinogen Normal MG/DL (0.0-1.0) Urine Leukocyte Esterase Negative (NEGATIVE) Urine RBC 2-4 /HPF (0 - 0) H Urine WBC 0-2 /HPF (0 - 0) Urine Squamous Epithelial Cells Occasional /LPF Urine Bacteria Few /HPF (NONE) Urine Mucus Few /LPF (NONE/OCC) H Current Medications Medications (Trade) Dose Ordered Sig/Arti Route PRN Reason Start Time Stop Time Status Last Admin Dose Admin Amlodipine Besylate (Norvasc) 5 mg DAILY ORAL 08/22/16 09:00 09/21/16 08:59 Dextrose/Sodium Chloride (D5ns) 1,000 ml @ 75 mls/hr [id number] IV 08/21/16 13:00 09/20/16 12:59 08/21/16 13:58 Hydromorphone HCl (Dilaudid) 0.5 mg Q4H PRN IVP For Pain 08/21/16 12:45 08/28/16 12:44 Metoprolol Tartrate (Lopressor) 25 mg Q12HR ORAL 08/21/16 21:00 09/20/16 20:59 Metronidazole (Flagyl) 100 ml @ 100 mls/hr Q8HR IVPB 08/21/16 16:00 08/28/16 15:59 Tamsulosin HCl (Flomax) 0.4 mg BEDTIME ORAL 08/21/16 21:00 09/20/16 20:59 Vancomycin HCl 125 mg 125 mg FOUR TIMES A DAY ORAL 08/21/16 13:00 08/28/16 12:59 Piyush Harris M.D. Aug 21, 2016 16:43
[2016-08-21 17:00] VITALS: BP 157/100
[2016-08-21] MEDS: Hydromorphone 0.5mg/0.5ml inj IVP PRN (19:03)
[2016-08-21] MEDS: metroNIDAZOLE 500mg 100 ML IVPB SCH (19:34)
[2016-08-21 20:00] VITALS: BP 161/102
[2016-08-21] MEDS ORDERED: Tamsulosin 0.4mg cap ORAL SCH (21:00)
[2016-08-21] MEDS ORDERED: Pantoprazole Inj IVP SCH (21:00)
[2016-08-21] MEDS: Metoprolol 25mg tab ORAL SCH (21:08)
--- NOTE | 2016-08-21 21:39 | Consultation ---
DATE OF CONSULTATION: INFECTIOUS DISEASES CONSULTATION REQUESTING PHYSICIAN: Johnny Rai M.D. REASON FOR CONSULTATION: Sepsis, leukocytosis, colitis, recommendation for antibiotics therapy. HISTORY OF PRESENT ILLNESS: The patient is a 65-year-old male, well known to me from his previous admission who had ischemic bowel and underwent three exploratory laparotomy for ischemic bowel with obstruction and anastomosis leak which he had two resections for. The patient was treated with antibiotics during hospitalization stay until 08/17/2016 when he was discharged home based on family request since he was not eating much in the hospital. The patient returned today on 08/21/2016 with worsening abdominal pain, fever, diarrhea with six to seven watery bowel movements per day. No appetite. Progressive abdominal pain. No nausea or vomiting. No blood in the stool. No fever or chills. No headache or blurry vision. The patient had poor appetite as per family. In the emergency room, the patient was found to have leukocytosis. CT scan of the abdomen and pelvis was done, did not show any abscess or fluid collection but possible low-grade anastomosis leak so the patient was admitted to the hospital and I was asked by his primary provider for antibiotics recommendations and further management. REVIEW OF SYSTEMS: A 14-point of system reviewed were all negative apart from the one I mentioned above in my history and physical. 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 PAST SURGICAL HISTORY: The patient underwent three exploratory laparotomy for ischemic bowel with anastomosis leak. MEDICATIONS: The patient was given oral vancomycin and IV Flagyl by the admitting provider. He received one dose of IV vancomycin and Zosyn in the emergency room. ALLERGIES: He has no drug allergies. SOCIAL HISTORY: He lives with , son-in-law and daughter. Denied using any drugs, tobacco, or alcohol. FAMILY HISTORY: Noncontributory. PHYSICAL EXAMINATION: VITAL SIGNS: Temperature 98.1, pulse 90, respirations 18, blood pressure 122/93, and O2 saturation 100% on room air. GENERAL: A middle-aged male in bed, pale, alert and oriented, not in distress. HEENT: Normocephalic and atraumatic. Pupils both reactive to light equally. No exudate. Pale sclarea. Dry oral mucosa. NECK: Supple. No lymphadenopathy. CARDIOVASCULAR: Regular rate and rhythm. No murmur. LUNGS: Clear bilaterally. Diminished breathing sounds at the bases. No wheezing or rhonchi. ABDOMEN: Soft. Mildly tender in the lower quadrants. Midline surgical wounds. Dry, healed well, intact with no dehiscence. Rest of previous surgical wound on the site seems to be dry out and scabbed. No drainage or pus. No organomegaly. No rebound. EXTREMITIES: No edema or cyanosis. LABORATORY AND DIAGNOSTIC DATA: CBC showed white count of 16.2, hemoglobin of 10.4, and platelet count 414,000. BUN of 16, creatinine of 2.1, glucose 131. ALT of 93. Urinalysis was negative for infection, showed few mucus. IMAGING: CT scan of abdomen and pelvis with oral contrast only showed postsurgical changes, gas bubbles in the mesenteric loop, possible low-grade leakage at the anastomosis, no evidence of small bowel obstruction, slight wall thickening of the distal esophagus and esophagitis not excluded, resolution of previously demonstrated ascites, gallbladder thickening, nonobstructing bilateral lower pole renal calculi, minimal right basilar pulmonary atelectasis. ASSESSMENT AND PLAN:: 1. Sepsis. Differential include anastomosis leak versus C. difficile colitis. The patient's CT scan did not show any evidence of abscess. Agree on current antibiotics treatment with oral vancomycin and IV flagyl for possible severe C. difficile colitis since he received long antibiotics treatment. We will send stool for culture and C. difficile toxin. Blood culture also was sent. Continue hydration. Avoid PPI for now until C. difficile is ruled out. 2. Watery diarrhea, suspect C. difficile infection versus short bowel syndrome. We will send stool for C. difficile and culture. Continue oral vancomycin with IV Flagyl, possible severe C. difficile colitis. Continue hydration. Avoid antacid until C. difficile is ruled out. 3. Possible leakage of the anastomosis between gastrointestinal structures evident on CT scan which was done in emergency room. Surgery is aware and they are following. 4. Acute on chronic renal failure. Continue hydration. Monitor urine output and renal function tests. Avoid nephrotoxic medications. Nephrology is following. Piyush Harris M.D. DR: Mariella JOB#: [id number] CC: DIANA
[2016-08-22 00:32] VITALS: BP 148/94
[2016-08-22] MEDS: metroNIDAZOLE 500mg 100 ML IVPB SCH ×4 (04:03→22:49)
[2016-08-22 04:05] VITALS: BP 153/95
[2016-08-22] MEDS: Hydromorphone 0.5mg/0.5ml inj IVP PRN (04:32)
[2016-08-22 07:48] LABS: BASOPHILS % (AUTO) 1.5 % (0.0-2.0); EOSINOPHILS % (AUTO) 3.4 % (0.0-3.0); MEAN CORPUSCULAR HEMOGLOBIN 30.1 PG (27.0-31.0); MEAN CORPUSCULAR VOLUME 91 FL (80-99); MEAN PLATELET VOLUME 6.7 FL (6.5-10.1); MONOCYTES % (AUTO) 7.6 % (1.0-10.0); NEUTROPHILS % (AUTO) 81.6 % (45.0-75.0); PLATELET COUNT 333 K/UL (150-450); RED BLOOD COUNT 2.93 M/UL (4.70-6.10); RED CELL DISTRIBUTION WIDTH 14.3 % (11.6-14.8); WHITE BLOOD COUNT 15.4 K/UL (4.8-10.8)
[2016-08-22 08:04] VITALS: BP 146/91
[2016-08-22 08:12] LABS: ALANINE AMINOTRANSFERASE 69 U/L (3-41); ALBUMIN/GLOBULIN RATIO 0.8 (1.0-2.7); ANION GAP 18 (5-15); ASPARTATE AMINO TRANSFERASE 32 U/L (5-40); CALCIUM 8.4 mg/dL (8.6-10.2); CARBON DIOXIDE 22 mEQ/L (20-30); CHLORIDE 97 mEQ/L (98-107); CREATININE 1.9 mg/dL (0.7-1.2); CRP QUANT 9.4 mg/dL (< 0.5); GLOMERULAR FILTRATION RATE 35.8 mL/min (>60); HEMOLYSIS 0; MAGNESIUM 1.5 mg/dL (1.7-2.5); PHOSPHORUS 3.3 mg/dL (2.5-4.8); POTASSIUM 3.5 mEQ/L (3.4-4.9); SODIUM 137 mEQ/L (135-145); TOTAL PROTEIN 6.6 g/dL (6.6-8.7); TROPONIN I < 0.30 ng/mL (<=0.30); URIC ACID 4.4 mg/dL (3.0-7.5)
[2016-08-22 08:16] LABS: HEMOGLOBIN A1C 5.1 % (< 6.0)
[2016-08-22] MEDS: Metoprolol 25mg tab ORAL SCH ×2 (08:48→21:28)
[2016-08-22] MEDS: D5NS 1,000 ML IV SCH (08:48)
--- NOTE | 2016-08-22 09:09 | Diagnostic Imaging Report ---
Indication: Chest pain Technique: One view of the chest Comparison: 08/04/2016 Findings: No acute infiltrates, effusions, or congestion. Tortuous calcified aorta. Normal heart size. Upper mediastinum unremarkable. Interim removal of previous demonstrated jugular central venous catheter Impression: No acute process.
[2016-08-22 11:28] VITALS: BP 138/87
[2016-08-22] MEDS ORDERED: Tamsulosin 0.4mg cap ORAL ONE (11:30)
[2016-08-22 12:01] LABS: HEMOLYSIS 1; IRON 14 ug/dL (59-158); TOTAL IRON BINDING CAPACITY 178 ug/dL (250-400)
[2016-08-22 12:11] LABS: FERRITIN 875 ng/mL (10-230)
--- NOTE | 2016-08-22 12:40 | General Progress Note ---
Assessment/Plan Status: stable Status Narrative Cr lower Assessment/Plan - Resolving acute renal failure - Sepsis - Watery diarrhea C diff negative - Suspected Leak of anastomosis between gastrointestinal structures - Anemia - HTN Plan: Antibiotics per ID DC Vanco Flagyl start PO Marinol YVONNE control PT OT incentive spirometery Mag supplement Subjective ROS Limited/Unobtainable: No Constitutional: Reports: malaise, other - comfortable, weakness Gastrointestinal/Abdominal: Reports: diarrhea Allergies: Coded Allergies: No Known Allergies (Unverified , 07/26/16) Objective Last 24 Hour Vital Signs Date Time Temp Pulse Resp B/P Pulse Ox O2 Delivery O2 Flow Rate FiO2 08/22/16 11:28 96.6 74 20 138/87 100 Room Air 08/22/16 08:48 86 146/91 08/22/16 08:48 86 146/91 08/22/16 08:04 98.2 86 20 146/91 99 Room Air 08/22/16 08:00 87 08/22/16 04:05 98.4 86 20 153/95 98 Room Air 08/22/16 04:00 80 08/22/16 00:32 98.6 85 20 148/94 96 Room Air 08/22/16 00:00 81 08/21/16 21:08 101 161/102 08/21/16 20:00 103 08/21/16 20:00 97.8 101 20 161/102 99 Room Air 08/21/16 17:00 97.7 92 20 157/100 100 Room Air 08/21/16 16:40 92 08/21/16 16:04 98.1 95 19 145/92 100 Room Air 08/21/16 15:55 98.1 95 19 145/92 100 Room Air 08/21/16 14:00 98.1 90 18 142/93 100 Room Air 08/21/16 13:16 92 19 146/92 100 Room Air Intake and Output 08/21/16 08/22/16 19:00 07:00 Intake Total 1185 ml 987 ml Output Total 450 ml Balance 1185 ml 537 ml Intake IV Total 1185 ml 987 ml Output Urine Total 450 ml # Voids 1 5 # Bowel Movements 1 Laboratory Tests 08/22/16 07:05: White Blood Count 15.4H, Red Blood Count 2.93L, Hemoglobin 8.8L, Hematocrit 26.8L, Mean Corpuscular Volume 91, Mean Corpuscular Hemoglobin 30.1, Mean Corpuscular Hemoglobin Concent 33.0, Red Cell Distribution Width 14.3, Platelet Count 333, Mean Platelet Volume 6.7, Neutrophils (%) (Auto) 81.6H, Lymphocytes ( %) (Auto) 6.0L, Monocytes (%) (Auto) 7.6, Eosinophils (%) (Auto) 3.4H, Basophils (%) (Auto) 1.5, Sodium Level 137, Potassium Level 3.5, Chloride Level 97L, Carbon Dioxide Level 22, Anion Gap 18H, Blood Urea Nitrogen 13, Creatinine 1.9H, Estimat Glomerular Filtration Rate 35.8, Glucose Level 127H, Hemoglobin A1c 5.1, Uric Acid 4.4, Calcium Level 8.4L, Phosphorus Level 3.3, Magnesium Level 1.5L, Iron Level 14L, Total Iron Binding Capacity 178L, Percent Iron Saturation 8L, Unsaturated Iron Binding 164, Ferritin 875H, Total Bilirubin 0.9 , Gamma Glutamyl Transpeptidase 170H, Aspartate Amino Transf (AST/SGOT) 32, Alanine Aminotransferase (ALT/SGPT) 69H, Alkaline Phosphatase 180H, Total Creatine Kinase 22L, Troponin I < 0.30, C-Reactive Protein, Quantitative 9.4H, Pro-B-Type Natriuretic Peptide 447H, Total Protein 6.6, Albumin 3.0L, Globulin 3.6, Albumin/Globulin Ratio 0.8L, Vitamin B12 Level 555, Folate [Pending] Height (Feet): 5 Height (Inches): 6.00 Weight (Pounds): 160 General Appearance: lethargic Cardiovascular: regular rhythm Respiratory/Chest: decreased breath sounds Abdomen: soft, distended Pelvis: other - scars clean Objective no edema REBECCA SCHULTE Aug 22, 2016 12:40
[2016-08-22] MEDS: Ampicillin/Sulbactam Sod 3 GM in NS 110 ML IVPB SCH ×2 (13:13→21:28)
[2016-08-22] MEDS ORDERED: Iron Sucrose 200 MG in NS 110 ML IVPB ONE (14:00)
[2016-08-22] MEDS ORDERED: Dronabinol 2.5mg Cap ORAL ONE (14:00)
[2016-08-22 16:00] VITALS: BP 140/96
--- NOTE | 2016-08-22 16:18 | Consultation ---
DATE OF CONSULTATION: 08/22/2016 CONSULTING PHYSICIAN: Wisam Murrieta M.D. REASON FOR CONSULTATION: Leukocytosis and abnormal CT scan. HISTORY OF PRESENT ILLNESS: This is a 65-year-old [place] male, who presented to the emergency room on 07/26/2016 for small bowel obstruction. On the same day, the patient underwent exploratory laparotomy with volvulus of the proximal part of the small bowel, which was released. The patient developed a gangrene of the distal small bowel and on 07/27/2016, he underwent bowel resection and ileocecostomy, but he developed an anastomosis leakage and about a week later, he underwent another exploratory laparotomy and excision of the anastomosis and ileocolostomy was performed. After the third surgery, the patient did very well and was discharged home about two to three days ago, but at home apparently, he had diarrhea and occasional abdominal pain, and it seems that he has been dehydrated. He was brought back to the emergency room. A CT scan had been performed, which has shown an air bubble at the base of the mesentery. I have been asked for a consultation at this time. He denies any pain. He states that occasionally, he has discomfort. The son-in-law stated that he did not have any fever at home, but in the emergency room, he had a temperature of 101 and that he has been having watery diarrhea. The son-in-law feels that he has been eating more than when he was in the hospital, but not enough. PAST MEDICAL HISTORY: He denies allergies, asthma, diabetes, cardiac, or renal diseases. He has a history of hypertension. PAST SURGICAL HISTORY: Appendectomy and exploratory laparotomy x3. MEDICATIONS: At home, he was on tramadol. SOCIAL HISTORY: The patient is a 65-year-old [place] male, who is and father of two children. He is retired. He denies smoking, but drinks occasionally. REVIEW OF SYSTEMS: He complains of weakness and diarrhea. PHYSICAL EXAMINATION: GENERAL: The patient appeared to be a well-developed, well-nourished, 65-year-old, oriental male, seems tired. HEENT: Head is normocephalic and atraumatic. Eyes, pupils are equal, round, and reactive to light. Mouth is clear. NECK: There is no palpable thyromegaly or adenopathy. CHEST: Clear to auscultation and percussion. HEART: There is no gallop or murmur. S1 and S2 are within normal limits. ABDOMEN: Soft and flat. There is no palpable organomegaly, and bowel sounds are audible. He has a scar of the midline incision from epigastrium to pubis. Abdomen is soft and nontender. The bowel sounds are present. GENITALIA: Normal. EXTREMITIES: Within normal limits. LABORATORY DATA: CBC on admission has shown a WBC of 15,000 with a left shift. The CRP is about 9. Chemistry is almost within normal limits except for the creatinine, which is about 1.8, which is the improvement from before. The patient has had a CT scan yesterday. I had a long discussion with Dr. Almaraz in the Radiology. The CT scan is within normal limits except that there is some inflammation of the midabdomen, which is less than before and there is a bubble of air at the base of the mesentery. That is the area that he had a drain before and that is the area, which had major soilage with the feces, but the radiologist did not see any leakage of the contrast. He stated that the chances of having a small gas leakage is very remote, but anyway to make sure about the anastomosis, it was decided to obtain a Gastrografin enema. DIAGNOSIS: Status post bowel resection. PLAN: I have taken the liberty of ordering a Gastrografin enema. At this time, he requires IV antibiotics. He can be on his regular diet. Wisam Murrieta M.D. DR: SUNDAY JOB#: [id number] CC:
--- NOTE | 2016-08-22 16:46 | Infectious Diseases Prog Note ---
Assessment/Plan Problems: (1) Sepsis Assessment & Plan: anastomosis leak VS colitis, will start unasyn and fluconazol, continue iv flagyl and stop oral vancomycin , stool for culture is pending, and C diff toxin is negative , blood culture is pending too , continue hydration . (2) Watery diarrhea Assessment & Plan: short bowel syndrome VS colitis, stool for C diff is negative, and culture is pending , will stop oral vancomycin , and continue with iv flagyl for colitis (3) Leak of anastomosis between gastrointestinal structures Assessment & Plan: low grade as per CT which was done with oral contrast, had barium enema today, general surgery is following (4) MIGNON (acute kidney injury) Assessment & Plan: continue fluids , monitor urine output and renal function test, avoid nephrotoxic meds , renal is following Subjective Constitutional: Reports: anorexia Gastrointestinal/Abdominal: Reports: bloating, diarrhea Allergies: Coded Allergies: No Known Allergies (Unverified , 07/26/16) All Systems: reviewed and negative except above Subjective feels a little better today Objective Vital Signs Last 24 Hour Vital Signs Date Time Temp Pulse Resp B/P Pulse Ox O2 Delivery O2 Flow Rate FiO2 08/22/16 16:00 97.3 81 20 140/96 99 Room Air 08/22/16 12:00 75 08/22/16 11:28 96.6 74 20 138/87 100 Room Air 08/22/16 08:48 86 146/91 08/22/16 08:48 86 146/91 08/22/16 08:04 98.2 86 20 146/91 99 Room Air 08/22/16 08:00 87 08/22/16 04:05 98.4 86 20 153/95 98 Room Air 08/22/16 04:00 80 08/22/16 00:32 98.6 85 20 148/94 96 Room Air 08/22/16 00:00 81 08/21/16 21:08 101 161/102 08/21/16 20:00 103 08/21/16 20:00 97.8 101 20 161/102 99 Room Air 08/21/16 17:00 97.7 92 20 157/100 100 Room Air Height (Feet): 5 Height (Inches): 6.00 Weight (Pounds): 160 General Appearance: WD/WN, no acute distress HEENT: normocephalic, atraumatic, anicteric, mucous membranes moist Respiratory/Chest: chest wall non-tender, lungs clear, normal breath sounds, no respiratory distress, no accessory muscle use Cardiovascular: normal peripheral pulses, normal rate, regular rhythm Abdomen: normal bowel sounds, no organomegaly, non distended, no mass, hypoactive bowel sounds, distended, tender Extremities: no cyanosis, no clubbing Skin: no rash, no lesions, no ulcers Microbiology Date/Time Source Procedure Growth Status 08/22/16 00:00 Stool Clostridium difficile Toxin Assay - Final Complete Laboratory Tests Test 08/22/16 07:05 White Blood Count 15.4 K/UL (4.8-10.8) H Red Blood Count 2.93 M/UL (4.70-6.10) L Hemoglobin 8.8 G/DL (14.2-18.0) L Hematocrit 26.8 % (42.0-52.0) L Mean Corpuscular Volume 91 FL (80-99) Mean Corpuscular Hemoglobin 30.1 PG (27.0-31.0) Mean Corpuscular Hemoglobin Concent 33.0 G/DL (32.0-36.0) Red Cell Distribution Width 14.3 % (11.6-14.8) Platelet Count 333 K/UL (150-450) Mean Platelet Volume 6.7 FL (6.5-10.1) Neutrophils (%) (Auto) 81.6 % (45.0-75.0) H Lymphocytes (%) (Auto) 6.0 % (20.0-45.0) L Monocytes (%) (Auto) 7.6 % (1.0-10.0) Eosinophils (%) (Auto) 3.4 % (0.0-3.0) H Basophils (%) (Auto) 1.5 % (0.0-2.0) Sodium Level 137 mEQ/L (135-145) Potassium Level 3.5 mEQ/L (3.4-4.9) Chloride Level 97 mEQ/L (98-107) L Carbon Dioxide Level 22 mEQ/L (20-30) Anion Gap 18 (5-15) H Blood Urea Nitrogen 13 mg/dL (7-23) Creatinine 1.9 mg/dL (0.7-1.2) H Estimat Glomerular Filtration Rate 35.8 mL/min (>60) Glucose Level 127 mg/dL (74-106) H Hemoglobin A1c 5.1 % (< 6.0) Uric Acid 4.4 mg/dL (3.0-7.5) Calcium Level 8.4 mg/dL (8.6-10.2) L Phosphorus Level 3.3 mg/dL (2.5-4.8) Magnesium Level 1.5 mg/dL (1.7-2.5) L Iron Level 14 ug/dL (59-158) L Total Iron Binding Capacity 178 ug/dL (250-400) L Percent Iron Saturation 8 % (15-50) L Unsaturated Iron Binding 164 ug/dL (112-346) Ferritin 875 ng/mL (10-230) H Total Bilirubin 0.9 mg/dL (0.0-1.2) Gamma Glutamyl Transpeptidase 170 U/L (8-61) H Aspartate Amino Transf (AST/SGOT) 32 U/L (5-40) Alanine Aminotransferase (ALT/SGPT) 69 U/L (3-41) H Alkaline Phosphatase 180 U/L (40-129) H Total Creatine Kinase 22 U/L (38-174) L Troponin I < 0.30 ng/mL (<=0.30) C-Reactive Protein, Quantitative 9.4 mg/dL (< 0.5) H Pro-B-Type Natriuretic Peptide 447 pg/mL (0-125) H Total Protein 6.6 g/dL (6.6-8.7) Albumin 3.0 g/dL (3.5-5.2) L Globulin 3.6 g/dL Albumin/Globulin Ratio 0.8 (1.0-2.7) L Vitamin B12 Level 555 pg/mL (211-946) Folate Pending Current Medications Medications (Trade) Dose Ordered Sig/Arti Route PRN Reason Start Time Stop Time Status Last Admin Dose Admin Amlodipine Besylate (Norvasc) 10 mg DAILY ORAL 08/23/16 09:00 09/22/16 08:59 Ampicillin Sodium/ Sulbactam Sodium 3 gm/Sodium Chloride 110 ml @ 220 mls/hr Q8H IVPB 08/22/16 13:00 08/29/16 12:59 08/22/16 13:13 Dextrose/Sodium Chloride (D5ns) 1,000 ml @ 75 mls/hr [id number] IV 08/21/16 13:00 09/20/16 12:59 08/22/16 08:48 Dronabinol (Marinol) 2.5 mg BID ORAL 08/22/16 21:00 09/21/16 20:59 Epoetin [place] 5000 units 5,000 units SUBQ 08/23/16 21:00 09/22/16 20:59 Fluconazole/ Sodium Chloride (Diflucan 400mg/ 200ml Premix) 200 ml @ 100 mls/hr Q24H IV 08/22/16 10:00 08/29/16 09:59 08/22/16 09:28 Hydromorphone HCl 0.5 mg 0.5 mg Q4H PRN IVP For Pain 08/21/16 12:45 08/28/16 12:44 08/22/16 04:32 Metoprolol Tartrate (Lopressor) 25 mg Q12HR ORAL 08/21/16 21:00 09/20/16 20:59 08/22/16 08:48 Metronidazole (Flagyl) 100 ml @ 100 mls/hr Q8HR IVPB 08/22/16 16:00 08/29/16 15:59 08/22/16 16:32 Tamsulosin HCl (Flomax) 0.4 mg BID ORAL 08/22/16 18:00 09/21/16 17:59 Piyush Harris M.D. Aug 22, 2016 16:46
--- NOTE | 2016-08-22 16:50 | Diagnostic Imaging Report ---
Indication: Abdominal pain, possible anastomotic leak status post surgical ileocolostomy Technique: Under fluoroscopic guidance, water-soluble contrast enema performed. Spot and overhead films were obtained Comparison: Reference made to CT abdomen pelvis 08/21/2016 Findings: Core Inspector film demonstrates a small amount retained contrast in the colon from the prior CT. Bowel gas pattern is unremarkable. A small amount of retained renal contrast is also evident Contrast easily traverse the entirety of the colon, was seen to flow across the ileocolic anastomosis into the terminal ileum. The staple line was readily visualized fluoroscopically, and no contrast was seen to leak at proximal anastomosis or in the region of the staple line or elsewhere. Postevacuation film demonstrates the attain of the colonic contents, and no evidence of extraluminal contrast No gross evidence of diverticulosis or diverticulitis, stricture, or fixed polypoid abnormality. Note, however, that the exam was not tailored for definitive exclusion of such. Impression: Water-soluble contrast enema at, demonstrating no evidence of contrast leak from ileocolic anastomosis
[2016-08-22] MEDS: Tamsulosin 0.4mg cap ORAL SCH (18:45)
[2016-08-22 20:00] VITALS: BP 148/92
--- NOTE | 2016-08-22 20:08 | History and Physical Report ---
DATE OF ADMISSION: 08/21/2016 HISTORY OF PRESENT ILLNESS: The patient is a 65-year-old male, who was recently discharged from [facility]. At that time, the patient was under the care of primary physician Dr. Love. The patient left on 08/17/2016 and yesterday the daughter called me that the patient's blood pressure is high and the patient is having frequent diarrhea and is feeling weak so the patient came in to the emergency room. After initial evaluation, the patient was found to have leukocytosis, dehydration and possible intra-abdominal process. The patient was admitted for further management. PAST MEDICAL HISTORY: The patient has a history of hypertension. During the recent hospitalization here at [facility], the patient developed acute renal failure but that recovered. The patient also went through three laparotomy surgeries for small bowel obstruction and leakage of anastomosis by Dr. Murrieta. MEDICATIONS: When the patient came into emergency room was not on any medication as apparently the family stated that no prescription was given to them. PHYSICAL EXAMINATION: GENERAL: The patient was lethargic, pale, tachycardic, and breathing fast. VITAL SIGNS: Blood pressure 149/96, heart rate 95 to 100, and pulse oximetry was okay. HEENT: Head normocephalic. Sclerae are not icteric. NECK: Supple. LUNGS: Decreased breath sound over the bases. HEART: Tachycardic. ABDOMEN: Scars of the recent surgeries were all cleaned. A right lower lobe quadrant was somewhat tender to touch. Bowel sounds however present. LABORATORY RESULTS: White blood cells 16.2, hemoglobin 10.4, creatinine 2.1, potassium 3.6, alkaline phosphatase 232, and albumin 3.7. Urinalysis was essentially negative. IMPRESSION: This is a 65-year-old, [place] male is being admitted with fever, abdominal pain, diarrhea, and leukocytosis with history of hypertension and history of resolving acute renal failure with three abdominal surgeries on 08/01, 07/27, and 07/23. Impression intra-abdominal pathology process infection rule out C. difficile colitis. PLAN: For now the stool will be sent for C. difficile. We will be starting on p.o. vancomycin, and IV Flagyl and IV Protonix. ID evaluation is called. The patient is due for abdominal CT. Pain management and BP medications will be given. According to how the patient's condition evolves, we will make the proper changes in our future management. Johnny Rai M.D. DR: PRAFUL JOB#: [id number] CC:
[2016-08-22] MEDS: Dronabinol 2.5mg Cap ORAL SCH (21:28)
[2016-08-23 00:09] VITALS: BP 141/90
[2016-08-23 04:05] VITALS: BP 123/75
[2016-08-23] MEDS: D5NS 1,000 ML IV SCH ×2 (04:30→18:30)
[2016-08-23] MEDS: Hydromorphone 0.5mg/0.5ml inj IVP PRN ×2 (04:41→16:50)
[2016-08-23] MEDS: Ampicillin/Sulbactam Sod 3 GM in NS 110 ML IVPB SCH ×3 (04:43→21:31)
[2016-08-23] MEDS: metroNIDAZOLE 500mg 100 ML IVPB SCH ×3 (05:56→22:30)
[2016-08-23 07:11] LABS: BASOPHILS % (AUTO) 1.3 % (0.0-2.0); EOSINOPHILS % (AUTO) 3.7 % (0.0-3.0); LYMPHOCYTES % (AUTO) 8.5 % (20.0-45.0); MEAN CORPUSCULAR HEMOGLOBIN 31.6 PG (27.0-31.0); MEAN CORPUSCULAR HGB CONC 34.8 G/DL (32.0-36.0); MEAN CORPUSCULAR VOLUME 91 FL (80-99); MEAN PLATELET VOLUME 7.3 FL (6.5-10.1); MONOCYTES % (AUTO) 8.6 % (1.0-10.0); NEUTROPHILS % (AUTO) 77.9 % (45.0-75.0); PLATELET COUNT 281 K/UL (150-450); RED BLOOD COUNT 2.59 M/UL (4.70-6.10); WHITE BLOOD COUNT 13.2 K/UL (4.8-10.8)
[2016-08-23 07:38] LABS: ALBUMIN/GLOBULIN RATIO 0.7 (1.0-2.7); CREATININE 1.7 mg/dL (0.7-1.2); GLOMERULAR FILTRATION RATE 40.7 mL/min (>60); MAGNESIUM 1.8 mg/dL (1.7-2.5); PHOSPHORUS 2.7 mg/dL (2.5-4.8); POTASSIUM 3.3 mEQ/L (3.4-4.9); TOTAL PROTEIN 6.3 g/dL (6.6-8.7); URIC ACID 4.3 mg/dL (3.0-7.5)
[2016-08-23 08:00] VITALS: BP 137/81
[2016-08-23] MEDS: Dronabinol 2.5mg Cap ORAL SCH ×2 (09:34→18:29)
[2016-08-23] MEDS: Metoprolol 25mg tab ORAL SCH ×2 (09:34→21:30)
[2016-08-23] MEDS: Tamsulosin 0.4mg cap ORAL SCH ×2 (09:34→18:29)
--- NOTE | 2016-08-23 10:03 | General Progress Note ---
Assessment/Plan Status: stable Status Narrative Cr lower Assessment/Plan - Resolving acute renal failure - Sepsis - Watery diarrhea C diff negative - Suspected Leak of anastomosis between gastrointestinal structures - Anemia - HTN Plan: Antibiotics per ID DC Vanco on Flagyl, Unasyn, Fluconozol start PO Marinol BP control PT OT incentive spirometery Mag supplement as needed GI advise requested Subjective ROS Limited/Unobtainable: No Constitutional: Reports: malaise, other - complains of low apetite and weakness - Had one BM yesterday, weakness Gastrointestinal/Abdominal: Reports: abdominal pain, other - bloated lower quadrants Allergies: Coded Allergies: No Known Allergies (Unverified , 07/26/16) Objective Last 24 Hour Vital Signs Date Time Temp Pulse Resp B/P Pulse Ox O2 Delivery O2 Flow Rate FiO2 08/23/16 09:34 79 137/81 08/23/16 09:34 79 137/81 08/23/16 08:00 97.3 79 18 137/81 98 Room Air 80 08/23/16 04:05 98.7 80 20 123/75 97 Room Air 08/23/16 04:00 76 08/23/16 00:09 98.2 77 21 141/90 99 Room Air 08/23/16 00:00 71 08/22/16 21:28 81 148/92 08/22/16 20:00 81 08/22/16 20:00 97.5 85 19 148/92 100 Room Air 08/22/16 16:00 97.3 81 20 140/96 99 Room Air 08/22/16 16:00 85 08/22/16 12:00 75 08/22/16 11:28 96.6 74 20 138/87 100 Room Air Intake and Output 08/22/16 08/23/16 19:00 07:00 Intake Total 1107 ml 1234 ml Output Total 200 ml Balance 907 ml 1234 ml Intake IV Total 1107 ml 1234 ml Output Urine Total 200 ml # Voids 1 2 # Bowel Movements 2 Laboratory Tests 08/23/16 05:30: White Blood Count 13.2H, Red Blood Count 2.59L, Hemoglobin 8.2L, Hematocrit 23.5L, Mean Corpuscular Volume 91, Mean Corpuscular Hemoglobin 31.6H, Mean Corpuscular Hemoglobin Concent 34.8, Red Cell Distribution Width 14.0, Platelet Count 281, Mean Platelet Volume 7.3, Neutrophils (%) (Auto) 77.9H, Lymphocytes ( %) (Auto) 8.5L, Monocytes (%) (Auto) 8.6, Eosinophils (%) (Auto) 3.7H, Basophils (%) (Auto) 1.3, Sodium Level 138, Potassium Level 3.3L, Chloride Level 100, Carbon Dioxide Level 21, Anion Gap 17H, Blood Urea Nitrogen 10, Creatinine 1.7H, Estimat Glomerular Filtration Rate 40.7, Glucose Level 122H, Uric Acid 4.3, Calcium Level 8.0L, Phosphorus Level 2.7, Magnesium Level 1.8, Total Bilirubin 0.7, Aspartate Amino Transf (AST/SGOT) 22, Alanine Aminotransferase (ALT/SGPT) 47H, Alkaline Phosphatase 167H, C-Reactive Protein, Quantitative 8.0H, Total Protein 6.3L, Albumin 2.6L, Globulin 3.7, Albumin/ Globulin Ratio 0.7L Height (Feet): 5 Height (Inches): 6.00 Weight (Pounds): 160 General Appearance: mild distress, other Cardiovascular: normal rate Respiratory/Chest: lungs clear, decreased breath sounds Abdomen: soft, other - lower Quads mild tender , BS + Objective no edema REBECCA SCHULTE Aug 23, 2016 10:03
[2016-08-23 12:00] VITALS: BP 130/82
[2016-08-23 16:00] VITALS: BP 126/78
--- NOTE | 2016-08-23 17:13 | Infectious Diseases Prog Note ---
Assessment/Plan Problems: (1) Sepsis Assessment & Plan: anastomosis leak VS colitis, continue unasyn , fluconazol, snd iv flagyl empirically to cover for possible mesenteric phlegmon ,since his barium enema didn't show leakage . stool for culture is pending, and C diff toxin is negative , blood culture is pending too , continue hydration . (2) Watery diarrhea Assessment & Plan: improving, short bowel syndrome VS colitis, stool for C diff is negative, and culture is pending , continue with iv unasyn and flagyl for colitis (3) Leak of anastomosis between gastrointestinal structures Assessment & Plan: low grade as per CT which was done with oral contrast, had barium enema today, general surgery is following (4) MIGNON (acute kidney injury) Assessment & Plan: due to dehydration, improving, continue hydration , monitor urine output and renal function test, avoid nephrotoxic meds , renal is following Subjective Constitutional: Reports: anorexia Gastrointestinal/Abdominal: Reports: bloating, other - abdominal pain 11/22 Allergies: Coded Allergies: No Known Allergies (Unverified , 07/26/16) All Systems: reviewed and negative except above Subjective feels a little better today Objective Vital Signs Last 24 Hour Vital Signs Date Time Temp Pulse Resp B/P Pulse Ox O2 Delivery O2 Flow Rate FiO2 08/23/16 16:00 97.7 78 20 126/78 99 Room Air 08/23/16 15:16 97.0 08/23/16 12:00 97.0 80 130/82 Room Air 83 08/23/16 11:25 97.3 08/23/16 09:34 79 137/81 08/23/16 09:34 79 137/81 08/23/16 08:00 97.3 79 18 137/81 98 Room Air 80 08/23/16 07:49 77 08/23/16 04:05 98.7 80 20 123/75 97 Room Air 08/23/16 04:00 76 08/23/16 00:09 98.2 77 21 141/90 99 Room Air 08/23/16 00:00 71 08/22/16 21:28 81 148/92 08/22/16 20:00 81 08/22/16 20:00 97.5 85 19 148/92 100 Room Air Height (Feet): 5 Height (Inches): 6.00 Weight (Pounds): 160 General Appearance: WD/WN, no acute distress HEENT: normocephalic, atraumatic, anicteric, mucous membranes moist Respiratory/Chest: chest wall non-tender, lungs clear, normal breath sounds, no respiratory distress, no accessory muscle use Cardiovascular: normal peripheral pulses, normal rate, regular rhythm Abdomen: normal bowel sounds, no organomegaly, non distended, no mass, hyperactive bowel sounds, tender Extremities: no cyanosis, no clubbing Skin: no rash, no lesions Microbiology Date/Time Source Procedure Growth Status 08/21/16 11:40 Blood Not Otherwise Specified Blood Culture - Preliminary NO GROWTH AFTER 24 HOURS Resulted 08/21/16 11:30 Blood Not Otherwise Specified Blood Culture - Preliminary NO GROWTH AFTER 24 HOURS Resulted 08/21/16 12:00 Nasal Nares MRSA Culture - Final NO METHICILLIN RESISTANT STAPH AUREUS... Complete 08/22/16 00:00 Stool Clostridium difficile Toxin Assay - Final Complete 08/21/16 12:00 Rectum VRE Culture - Final NO VANCOMYCIN RESISTANT ENTEROCOCCUS ... Complete Laboratory Tests Test 08/23/16 05:30 White Blood Count 13.2 K/UL (4.8-10.8) H Red Blood Count 2.59 M/UL (4.70-6.10) L Hemoglobin 8.2 G/DL (14.2-18.0) L Hematocrit 23.5 % (42.0-52.0) L Mean Corpuscular Volume 91 FL (80-99) Mean Corpuscular Hemoglobin 31.6 PG (27.0-31.0) H Mean Corpuscular Hemoglobin Concent 34.8 G/DL (32.0-36.0) Red Cell Distribution Width 14.0 % (11.6-14.8) Platelet Count 281 K/UL (150-450) Mean Platelet Volume 7.3 FL (6.5-10.1) Neutrophils (%) (Auto) 77.9 % (45.0-75.0) H Lymphocytes (%) (Auto) 8.5 % (20.0-45.0) L Monocytes (%) (Auto) 8.6 % (1.0-10.0) Eosinophils (%) (Auto) 3.7 % (0.0-3.0) H Basophils (%) (Auto) 1.3 % (0.0-2.0) Sodium Level 138 mEQ/L (135-145) Potassium Level 3.3 mEQ/L (3.4-4.9) L Chloride Level 100 mEQ/L (98-107) Carbon Dioxide Level 21 mEQ/L (20-30) Anion Gap 17 (5-15) H Blood Urea Nitrogen 10 mg/dL (7-23) Creatinine 1.7 mg/dL (0.7-1.2) H Estimat Glomerular Filtration Rate 40.7 mL/min (>60) Glucose Level 122 mg/dL (74-106) H Uric Acid 4.3 mg/dL (3.0-7.5) Calcium Level 8.0 mg/dL (8.6-10.2) L Phosphorus Level 2.7 mg/dL (2.5-4.8) Magnesium Level 1.8 mg/dL (1.7-2.5) Total Bilirubin 0.7 mg/dL (0.0-1.2) Aspartate Amino Transf (AST/SGOT) 22 U/L (5-40) Alanine Aminotransferase (ALT/SGPT) 47 U/L (3-41) H Alkaline Phosphatase 167 U/L (40-129) H C-Reactive Protein, Quantitative 8.0 mg/dL (< 0.5) H Total Protein 6.3 g/dL (6.6-8.7) L Albumin 2.6 g/dL (3.5-5.2) L Globulin 3.7 g/dL Albumin/Globulin Ratio 0.7 (1.0-2.7) L Current Medications Medications (Trade) Dose Ordered Sig/Arti Route PRN Reason Start Time Stop Time Status Last Admin Dose Admin Acetaminophen (Tylenol) 650 mg Q4H PRN ORAL Mild Pain (Pain Scale 1-3) 08/23/16 09:30 09/22/16 09:29 08/23/16 14:17 Amlodipine Besylate (Norvasc) 10 mg DAILY ORAL 08/23/16 09:00 09/22/16 08:59 08/23/16 09:34 Ampicillin Sodium/ Sulbactam Sodium 3 gm/Sodium Chloride 110 ml @ 220 mls/hr Q8H IVPB 08/22/16 13:00 08/29/16 12:59 08/23/16 12:40 Dextrose/Sodium Chloride (D5ns) 1,000 ml @ 75 mls/hr [id number] IV 08/21/16 13:00 09/20/16 12:59 08/23/16 04:30 Dronabinol (Marinol) 2.5 mg BID ORAL 08/22/16 21:00 09/21/16 20:59 08/23/16 09:34 Epoetin [place] 5000 units 5,000 units SUBQ 08/23/16 21:00 09/22/16 20:59 Fluconazole/ Sodium Chloride (Diflucan 400mg/ 200ml Premix) 200 ml @ 100 mls/hr Q24H IV 08/22/16 10:00 08/29/16 09:59 08/23/16 09:33 Hydromorphone HCl (Dilaudid) 0.5 mg Q4H PRN IVP Severe Pain (Pain Scale 7-10) 08/23/16 09:42 08/28/16 12:44 08/23/16 16:50 Metoprolol Tartrate 25 mg 25 mg Q12HR ORAL 08/21/16 21:00 09/20/16 20:59 08/23/16 09:34 Metronidazole (Flagyl) 100 ml @ 100 mls/hr Q8HR IVPB 08/22/16 16:00 08/29/16 15:59 08/23/16 14:00 Tamsulosin HCl (Flomax) 0.4 mg BID ORAL 08/22/16 18:00 09/21/16 17:59 08/23/16 09:34 Piyush Harris M.D. Aug 23, 2016 17:13
--- NOTE | 2016-08-23 17:59 | General Surgery Progress Note ---
General Surgery-Progress Note Subjective Symptoms: pain absent, BM Objective Last 24 Hour Vital Signs Date Time Temp Pulse Resp B/P Pulse Ox O2 Delivery O2 Flow Rate FiO2 08/23/16 16:00 97.7 78 20 126/78 99 Room Air 08/23/16 15:16 97.0 08/23/16 12:00 97.0 80 130/82 Room Air 83 08/23/16 11:25 97.3 08/23/16 09:34 79 137/81 08/23/16 09:34 79 137/81 08/23/16 08:00 97.3 79 18 137/81 98 Room Air 80 08/23/16 07:49 77 08/23/16 04:05 98.7 80 20 123/75 97 Room Air 08/23/16 04:00 76 08/23/16 00:09 98.2 77 21 141/90 99 Room Air 08/23/16 00:00 71 08/22/16 21:28 81 148/92 08/22/16 20:00 81 08/22/16 20:00 97.5 85 19 148/92 100 Room Air I&O Intake and Output 08/22/16 08/23/16 19:00 07:00 Intake Total 1107 ml 1234 ml Output Total 200 ml Balance 907 ml 1234 ml IV Total 1107 ml 1234 ml Output Urine Total 200 ml # Voids 1 2 # Bowel Movements 2 Wound: clean, intact Respiratory: clear Abdomen: soft, flat, non-tender, present bowel sounds Extremities: no tenderness Laboratory Tests Test 08/23/16 05:30 White Blood Count 13.2 K/UL (4.8-10.8) H Red Blood Count 2.59 M/UL (4.70-6.10) L Hemoglobin 8.2 G/DL (14.2-18.0) L Hematocrit 23.5 % (42.0-52.0) L Mean Corpuscular Volume 91 FL (80-99) Mean Corpuscular Hemoglobin 31.6 PG (27.0-31.0) H Mean Corpuscular Hemoglobin Concent 34.8 G/DL (32.0-36.0) Red Cell Distribution Width 14.0 % (11.6-14.8) Platelet Count 281 K/UL (150-450) Mean Platelet Volume 7.3 FL (6.5-10.1) Neutrophils (%) (Auto) 77.9 % (45.0-75.0) H Lymphocytes (%) (Auto) 8.5 % (20.0-45.0) L Monocytes (%) (Auto) 8.6 % (1.0-10.0) Eosinophils (%) (Auto) 3.7 % (0.0-3.0) H Basophils (%) (Auto) 1.3 % (0.0-2.0) Sodium Level 138 mEQ/L (135-145) Potassium Level 3.3 mEQ/L (3.4-4.9) L Chloride Level 100 mEQ/L (98-107) Carbon Dioxide Level 21 mEQ/L (20-30) Anion Gap 17 (5-15) H Blood Urea Nitrogen 10 mg/dL (7-23) Creatinine 1.7 mg/dL (0.7-1.2) H Estimat Glomerular Filtration Rate 40.7 mL/min (>60) Glucose Level 122 mg/dL (74-106) H Uric Acid 4.3 mg/dL (3.0-7.5) Calcium Level 8.0 mg/dL (8.6-10.2) L Phosphorus Level 2.7 mg/dL (2.5-4.8) Magnesium Level 1.8 mg/dL (1.7-2.5) Total Bilirubin 0.7 mg/dL (0.0-1.2) Aspartate Amino Transf (AST/SGOT) 22 U/L (5-40) Alanine Aminotransferase (ALT/SGPT) 47 U/L (3-41) H Alkaline Phosphatase 167 U/L (40-129) H C-Reactive Protein, Quantitative 8.0 mg/dL (< 0.5) H Total Protein 6.3 g/dL (6.6-8.7) L Albumin 2.6 g/dL (3.5-5.2) L Globulin 3.7 g/dL Albumin/Globulin Ratio 0.7 (1.0-2.7) L Assessment Additional Comments intra abdominal phlegmon Plan Additional Comments continue IV Antibiotics EDWIN NOGUEIRA Aug 23, 2016 17:59
[2016-08-23 20:00] VITALS: BP 116/79
--- NOTE | 2016-08-23 21:00 | General Progress Note ---
Assessment/Plan Assessment/Plan GI consult Dictated Agree with abx - suggest full 14 day course suspect abx associated diarrhea Will consider repeat CT in 10 days Push po probiotics will follow Thank you Erlin Jennings MD Subjective Allergies: Coded Allergies: No Known Allergies (Unverified , 07/26/16) Objective Last 24 Hour Vital Signs Date Time Temp Pulse Resp B/P Pulse Ox O2 Delivery O2 Flow Rate FiO2 08/23/16 16:00 72 08/23/16 16:00 97.7 78 20 126/78 99 Room Air 08/23/16 15:16 97.0 08/23/16 12:00 97.0 80 130/82 Room Air 83 08/23/16 11:25 97.3 08/23/16 09:34 79 137/81 08/23/16 09:34 79 137/81 08/23/16 08:00 97.3 79 18 137/81 98 Room Air 80 08/23/16 07:49 77 08/23/16 04:05 98.7 80 20 123/75 97 Room Air 08/23/16 04:00 76 08/23/16 00:09 98.2 77 21 141/90 99 Room Air 08/23/16 00:00 71 08/22/16 21:28 81 148/92 Intake and Output 08/22/16 08/23/16 19:00 07:00 Intake Total 1107 ml 1234 ml Output Total 200 ml Balance 907 ml 1234 ml IV Total 1107 ml 1234 ml Output Urine Total 200 ml # Voids 1 2 # Bowel Movements 2 Laboratory Tests 08/23/16 05:30: White Blood Count 13.2H, Red Blood Count 2.59L, Hemoglobin 8.2L, Hematocrit 23.5L, Mean Corpuscular Volume 91, Mean Corpuscular Hemoglobin 31.6H, Mean Corpuscular Hemoglobin Concent 34.8, Red Cell Distribution Width 14.0, Platelet Count 281, Mean Platelet Volume 7.3, Neutrophils (%) (Auto) 77.9H, Lymphocytes ( %) (Auto) 8.5L, Monocytes (%) (Auto) 8.6, Eosinophils (%) (Auto) 3.7H, Basophils (%) (Auto) 1.3, Sodium Level 138, Potassium Level 3.3L, Chloride Level 100, Carbon Dioxide Level 21, Anion Gap 17H, Blood Urea Nitrogen 10, Creatinine 1.7H, Estimat Glomerular Filtration Rate 40.7, Glucose Level 122H, Uric Acid 4.3, Calcium Level 8.0L, Phosphorus Level 2.7, Magnesium Level 1.8, Total Bilirubin 0.7, Aspartate Amino Transf (AST/SGOT) 22, Alanine Aminotransferase (ALT/SGPT) 47H, Alkaline Phosphatase 167H, C-Reactive Protein, Quantitative 8.0H, Total Protein 6.3L, Albumin 2.6L, Globulin 3.7, Albumin/ Globulin Ratio 0.7L Height (Feet): 5 Height (Inches): 6.00 Weight (Pounds): 160 NATALIOERLIN REED Aug 23, 2016 21:00
[2016-08-23] MEDS: Epogen (for non ESRD use) SUBQ SCH (21:31)
[2016-08-24] VITALS (7 sets, daily range): BP systolic 116–147; BP diastolic 74–89
[2016-08-24] MEDS: Ampicillin/Sulbactam Sod 3 GM in NS 110 ML IVPB SCH ×2 (05:01→20:50)
[2016-08-24] MEDS: metroNIDAZOLE 500mg 100 ML IVPB SCH ×2 (05:57→21:58)
[2016-08-24 08:21] LABS: MEAN CORPUSCULAR HEMOGLOBIN 30.5 PG (27.0-31.0); MEAN CORPUSCULAR HGB CONC 33.7 G/DL (32.0-36.0); MEAN CORPUSCULAR VOLUME 90 FL (80-99); MEAN PLATELET VOLUME 6.7 FL (6.5-10.1); PLATELET COUNT 309 K/UL (150-450); RED BLOOD COUNT 2.54 M/UL (4.70-6.10); RED CELL DISTRIBUTION WIDTH 14.1 % (11.6-14.8); WHITE BLOOD COUNT 9.3 K/UL (4.8-10.8)
[2016-08-24 08:40] LABS: ALBUMIN/GLOBULIN RATIO 0.7 (1.0-2.7); CALCIUM 7.6 mg/dL (8.6-10.2); CREATININE 1.6 mg/dL (0.7-1.2); CRP QUANT 6.1 mg/dL (< 0.5); GLOMERULAR FILTRATION RATE 43.6 mL/min (>60); MAGNESIUM 1.4 mg/dL (1.7-2.5); PHOSPHORUS 2.7 mg/dL (2.5-4.8); POTASSIUM 3.2 mEQ/L (3.4-4.9); TOTAL PROTEIN 6.3 g/dL (6.6-8.7)
[2016-08-24] MEDS: D5NS 1,000 ML IV SCH ×2 (09:00→20:51)
[2016-08-24] MEDS: Lactobacillus-GG tablet ORAL SCH ×3 (09:00→17:39)
[2016-08-24] MEDS: Metoprolol 25mg tab ORAL SCH ×2 (09:01→21:59)
[2016-08-24] MEDS: Dronabinol 2.5mg Cap ORAL SCH ×3 (09:01→17:40)
[2016-08-24] MEDS: Tamsulosin 0.4mg cap ORAL SCH ×2 (09:01→17:39)
[2016-08-24 09:49] LABS: BAND NEUTROPHILS % (MANUAL) 0 % (0-8); BASOPHILS % (MANUAL) 0 % (0-2); EOSINOPHILS % (MANUAL) 2 % (0-3); HYPOCHROMASIA 1+; LYMPHOCYTES % (MANUAL) 6 % (20-45); NEUTROPHILS % (MANUAL) 86 % (45-75); PLATELET ESTIMATE ADEQUATE; PLATELET MORPHOLOGY NORMAL; TOTAL CELLS COUNTED 100
--- NOTE | 2016-08-24 09:51 | General Progress Note ---
Assessment/Plan Assessment/Plan Assessment - abd pain - phlegmon/bubbles - s/p multiple abd surgeries - anemia - weakness - anorexia Recommendations - RBC transfusion - Push po - Abx - Elevate HOB Subjective Allergies: Coded Allergies: No Known Allergies (Unverified , 07/26/16) Subjective Better sitting in chair less pain Objective Last 24 Hour Vital Signs Date Time Temp Pulse Resp B/P Pulse Ox O2 Delivery O2 Flow Rate FiO2 08/24/16 09:01 77 146/89 08/24/16 09:01 77 146/89 08/24/16 08:00 98.1 77 146/89 Room Air 72 08/24/16 04:04 98.3 79 20 147/84 96 Room Air 08/24/16 04:00 73 08/24/16 00:22 97.8 82 18 134/74 95 Room Air 08/24/16 00:00 71 08/23/16 21:30 82 116/79 08/23/16 20:00 97.9 82 18 116/79 98 Room Air 08/23/16 20:00 76 08/23/16 16:00 72 08/23/16 16:00 97.7 78 20 126/78 99 Room Air 08/23/16 15:16 97.0 08/23/16 12:00 97.0 80 130/82 Room Air 83 08/23/16 11:25 97.3 Intake and Output 08/23/16 08/24/16 19:00 07:00 Intake Total 2133 ml 1108 ml Output Total 460 ml 650 ml Balance 1673 ml 458 ml Intake Oral 640 ml IV Total 1493 ml 1108 ml Output Urine Total 460 ml 650 ml # Voids 2 3 # Bowel Movements 1 Laboratory Tests 08/24/16 07:40: White Blood Count 9.3, Red Blood Count 2.54L, Hemoglobin 7.7L, Hematocrit 22.9L , Mean Corpuscular Volume 90, Mean Corpuscular Hemoglobin 30.5, Mean Corpuscular Hemoglobin Concent 33.7, Red Cell Distribution Width 14.1, Platelet Count 309, Mean Platelet Volume 6.7, Neutrophils (%) (Auto) , Lymphocytes (%) ( Auto) , Monocytes (%) (Auto) , Eosinophils (%) (Auto) , Basophils (%) (Auto) , Neutrophils % (Manual) [Pending], Lymphocytes % (Manual) [Pending], Platelet Estimate [Pending], Platelet Morphology [Pending], Sodium Level 139, Potassium Level 3.2L, Chloride Level 101, Carbon Dioxide Level 23, Anion Gap 15, Blood Urea Nitrogen 8, Creatinine 1.6H, Estimat Glomerular Filtration Rate 43.6, Glucose Level 132H, Calcium Level 7.6L, Phosphorus Level 2.7, Magnesium Level 1.4L, Total Bilirubin 0.6, Aspartate Amino Transf (AST/SGOT) 13, Alanine Aminotransferase (ALT/SGPT) 32, Alkaline Phosphatase 148H, C-Reactive Protein, Quantitative 6.1H, Total Protein 6.3L, Albumin 2.7L, Globulin 3.6, Albumin/ Globulin Ratio 0.7L Height (Feet): 5 Height (Inches): 6.00 Weight (Pounds): 160 Objective WDWN NCAT supple CTA RRR abd soft NT ND No edema non focal ALVAREZ MARTINEZ Aug 24, 2016 09:51
--- NOTE | 2016-08-24 10:12 | General Progress Note ---
Assessment/Plan Status: stable Status Narrative Cr lower Hgb lower Assessment/Plan - Resolving acute renal failure - Sepsis - Watery diarrhea C diff negative - Suspected Leak of anastomosis between gastrointestinal structures - Anemia - HTN Plan: Mag Suuplement- Transfusion-- Antibiotics per ID Off oral Vanco on Flagyl, Unasyn, Fluconozol On PO Marinol, will increase the dose BP control PT OT incentive spirometery GI advise requested, appreciated Subjective ROS Limited/Unobtainable: No Constitutional: Reports: malaise, other - overall feel stronger, weakness Allergies: Coded Allergies: No Known Allergies (Unverified , 07/26/16) Objective Last 24 Hour Vital Signs Date Time Temp Pulse Resp B/P Pulse Ox O2 Delivery O2 Flow Rate FiO2 08/24/16 09:01 77 146/89 08/24/16 09:01 77 146/89 08/24/16 08:00 98.1 77 146/89 Room Air 72 08/24/16 04:04 98.3 79 20 147/84 96 Room Air 08/24/16 04:00 73 08/24/16 00:22 97.8 82 18 134/74 95 Room Air 08/24/16 00:00 71 08/23/16 21:30 82 116/79 08/23/16 20:00 97.9 82 18 116/79 98 Room Air 08/23/16 20:00 76 08/23/16 16:00 72 08/23/16 16:00 97.7 78 20 126/78 99 Room Air 08/23/16 15:16 97.0 08/23/16 12:00 97.0 80 130/82 Room Air 83 08/23/16 11:25 97.3 Intake and Output 08/23/16 08/24/16 19:00 07:00 Intake Total 2133 ml 1108 ml Output Total 460 ml 650 ml Balance 1673 ml 458 ml Intake Oral 640 ml IV Total 1493 ml 1108 ml Output Urine Total 460 ml 650 ml # Voids 2 3 # Bowel Movements 1 Laboratory Tests 08/24/16 07:40: White Blood Count 9.3, Red Blood Count 2.54L, Hemoglobin 7.7L, Hematocrit 22.9L , Mean Corpuscular Volume 90, Mean Corpuscular Hemoglobin 30.5, Mean Corpuscular Hemoglobin Concent 33.7, Red Cell Distribution Width 14.1, Platelet Count 309, Mean Platelet Volume 6.7, Neutrophils (%) (Auto) , Lymphocytes (%) ( Auto) , Monocytes (%) (Auto) , Eosinophils (%) (Auto) , Basophils (%) (Auto) , Differential Total Cells Counted 100, Neutrophils % (Manual) 86H, Lymphocytes % (Manual) 6L, Monocytes % (Manual) 6, Eosinophils % (Manual) 2, Basophils % ( Manual) 0, Band Neutrophils 0, Platelet Estimate Adequate, Platelet Morphology Normal, Hypochromasia 1+, Sodium Level 139, Potassium Level 3.2L, Chloride Level 101, Carbon Dioxide Level 23, Anion Gap 15, Blood Urea Nitrogen 8, Creatinine 1.6H, Estimat Glomerular Filtration Rate 43.6, Glucose Level 132H, Calcium Level 7.6L, Phosphorus Level 2.7, Magnesium Level 1.4L, Total Bilirubin 0.6, Aspartate Amino Transf (AST/SGOT) 13, Alanine Aminotransferase (ALT/SGPT) 32, Alkaline Phosphatase 148H, C-Reactive Protein, Quantitative 6.1H, Total Protein 6.3L, Albumin 2.7L, Globulin 3.6, Albumin/Globulin Ratio 0.7L Height (Feet): 5 Height (Inches): 6.00 Weight (Pounds): 160 General Appearance: no apparent distress Cardiovascular: regular rhythm Respiratory/Chest: lungs clear Abdomen: soft, distended - mild LQ distension Objective other PE not changed- no edema REBECCA SCHULTE Aug 24, 2016 10:12
--- NOTE | 2016-08-24 14:36 | General Surgery Progress Note ---
General Surgery-Progress Note Subjective Symptoms: improved, pain absent, BM Objective Last 24 Hour Vital Signs Date Time Temp Pulse Resp B/P Pulse Ox O2 Delivery O2 Flow Rate FiO2 08/24/16 12:55 98.4 73 118/78 08/24/16 12:40 98.2 70 116/78 08/24/16 09:01 77 146/89 08/24/16 09:01 77 146/89 08/24/16 08:00 98.1 77 146/89 Room Air 72 08/24/16 07:42 75 08/24/16 04:04 98.3 79 20 147/84 96 Room Air 08/24/16 04:00 73 08/24/16 00:22 97.8 82 18 134/74 95 Room Air 08/24/16 00:00 71 08/23/16 21:30 82 116/79 08/23/16 20:00 97.9 82 18 116/79 98 Room Air 08/23/16 20:00 76 08/23/16 16:00 72 08/23/16 16:00 97.7 78 20 126/78 99 Room Air 08/23/16 15:16 97.0 I&O Intake and Output 08/23/16 08/24/16 19:00 07:00 Intake Total 2133 ml 1108 ml Output Total 460 ml 650 ml Balance 1673 ml 458 ml Intake Oral 640 ml IV Total 1493 ml 1108 ml Output Urine Total 460 ml 650 ml # Voids 2 3 # Bowel Movements 1 Respiratory: clear Abdomen: soft, non-tender, present bowel sounds Extremities: no tenderness Laboratory Tests Test 08/24/16 07:40 White Blood Count 9.3 K/UL (4.8-10.8) Red Blood Count 2.54 M/UL (4.70-6.10) L Hemoglobin 7.7 G/DL (14.2-18.0) L Hematocrit 22.9 % (42.0-52.0) L Mean Corpuscular Volume 90 FL (80-99) Mean Corpuscular Hemoglobin 30.5 PG (27.0-31.0) Mean Corpuscular Hemoglobin Concent 33.7 G/DL (32.0-36.0) Red Cell Distribution Width 14.1 % (11.6-14.8) Platelet Count 309 K/UL (150-450) Mean Platelet Volume 6.7 FL (6.5-10.1) Neutrophils (%) (Auto) % (45.0-75.0) Lymphocytes (%) (Auto) % (20.0-45.0) Monocytes (%) (Auto) % (1.0-10.0) Eosinophils (%) (Auto) % (0.0-3.0) Basophils (%) (Auto) % (0.0-2.0) Differential Total Cells Counted 100 Neutrophils % (Manual) 86 % (45-75) H Lymphocytes % (Manual) 6 % (20-45) L Monocytes % (Manual) 6 % (1-10) Eosinophils % (Manual) 2 % (0-3) Basophils % (Manual) 0 % (0-2) Band Neutrophils 0 % (0-8) Platelet Estimate Adequate Platelet Morphology Normal Hypochromasia 1+ Sodium Level 139 mEQ/L (135-145) Potassium Level 3.2 mEQ/L (3.4-4.9) L Chloride Level 101 mEQ/L (98-107) Carbon Dioxide Level 23 mEQ/L (20-30) Anion Gap 15 (5-15) Blood Urea Nitrogen 8 mg/dL (7-23) Creatinine 1.6 mg/dL (0.7-1.2) H Estimat Glomerular Filtration Rate 43.6 mL/min (>60) Glucose Level 132 mg/dL (74-106) H Calcium Level 7.6 mg/dL (8.6-10.2) L Phosphorus Level 2.7 mg/dL (2.5-4.8) Magnesium Level 1.4 mg/dL (1.7-2.5) L Total Bilirubin 0.6 mg/dL (0.0-1.2) Aspartate Amino Transf (AST/SGOT) 13 U/L (5-40) Alanine Aminotransferase (ALT/SGPT) 32 U/L (3-41) Alkaline Phosphatase 148 U/L (40-129) H C-Reactive Protein, Quantitative 6.1 mg/dL (< 0.5) H Total Protein 6.3 g/dL (6.6-8.7) L Albumin 2.7 g/dL (3.5-5.2) L Globulin 3.6 g/dL Albumin/Globulin Ratio 0.7 (1.0-2.7) L Assessment Additional Comments intra abdominal phlegmon Plan Additional Comments continue IV Antibiotics EDWIN NOGUEIRA Aug 24, 2016 14:36
[2016-08-24] MEDS ORDERED: NS 275ml ONE (15:45)
[2016-08-24] MEDS ORDERED: D5NS 1000ml IV ONE (15:45)
[2016-08-24] MEDS ORDERED: Tubing IV Secondary IV ONE (15:45)
--- NOTE | 2016-08-24 16:44 | Infectious Diseases Prog Note ---
Assessment/Plan Problems: (1) Sepsis Assessment & Plan: anastomosis leak VS colitis, continue unasyn , fluconazol, snd iv flagyl empirically to cover for possible mesenteric phlegmon ,since his barium enema didn't show leakage . stool for culture is pending, and C diff toxin is negative , blood culture is pending too , continue hydration . (2) Watery diarrhea Assessment & Plan: improving, short bowel syndrome VS colitis, stool for C diff is negative, and culture is pending , continue with iv unasyn and flagyl for colitis (3) Leak of anastomosis between gastrointestinal structures Assessment & Plan: low grade as per CT which was done with oral contrast, had barium enema today, general surgery is following (4) MIGNON (acute kidney injury) Assessment & Plan: due to dehydration, improving, continue hydration , monitor urine output and renal function test, avoid nephrotoxic meds , renal is following Subjective Gastrointestinal/Abdominal: Reports: bloating, other - pain Allergies: Coded Allergies: No Known Allergies (Unverified , 07/26/16) All Systems: reviewed and negative except above Subjective feels a little better today Objective Vital Signs Last 24 Hour Vital Signs Date Time Temp Pulse Resp B/P Pulse Ox O2 Delivery O2 Flow Rate FiO2 08/24/16 12:55 98.4 73 118/78 08/24/16 12:40 98.2 70 116/78 08/24/16 09:01 77 146/89 08/24/16 09:01 77 146/89 08/24/16 08:00 98.1 77 146/89 Room Air 72 08/24/16 07:42 75 08/24/16 04:04 98.3 79 20 147/84 96 Room Air 08/24/16 04:00 73 08/24/16 00:22 97.8 82 18 134/74 95 Room Air 08/24/16 00:00 71 08/23/16 21:30 82 116/79 08/23/16 20:00 97.9 82 18 116/79 98 Room Air 08/23/16 20:00 76 Height (Feet): 5 Height (Inches): 6.00 Weight (Pounds): 160 General Appearance: WD/WN, no acute distress HEENT: normocephalic, atraumatic, anicteric, mucous membranes moist Respiratory/Chest: chest wall non-tender, lungs clear, normal breath sounds, no respiratory distress, no accessory muscle use Cardiovascular: normal peripheral pulses, normal rate, regular rhythm, no gallop/murmur Abdomen: normal bowel sounds, no organomegaly, no mass, distended, tender Extremities: no cyanosis, no clubbing Skin: no rash, no lesions, no ulcers Microbiology Date/Time Source Procedure Growth Status 08/22/16 00:00 Stool Clostridium difficile Toxin Assay - Final Complete Laboratory Tests Test 08/24/16 07:40 White Blood Count 9.3 K/UL (4.8-10.8) Red Blood Count 2.54 M/UL (4.70-6.10) L Hemoglobin 7.7 G/DL (14.2-18.0) L Hematocrit 22.9 % (42.0-52.0) L Mean Corpuscular Volume 90 FL (80-99) Mean Corpuscular Hemoglobin 30.5 PG (27.0-31.0) Mean Corpuscular Hemoglobin Concent 33.7 G/DL (32.0-36.0) Red Cell Distribution Width 14.1 % (11.6-14.8) Platelet Count 309 K/UL (150-450) Mean Platelet Volume 6.7 FL (6.5-10.1) Neutrophils (%) (Auto) % (45.0-75.0) Lymphocytes (%) (Auto) % (20.0-45.0) Monocytes (%) (Auto) % (1.0-10.0) Eosinophils (%) (Auto) % (0.0-3.0) Basophils (%) (Auto) % (0.0-2.0) Differential Total Cells Counted 100 Neutrophils % (Manual) 86 % (45-75) H Lymphocytes % (Manual) 6 % (20-45) L Monocytes % (Manual) 6 % (1-10) Eosinophils % (Manual) 2 % (0-3) Basophils % (Manual) 0 % (0-2) Band Neutrophils 0 % (0-8) Platelet Estimate Adequate Platelet Morphology Normal Hypochromasia 1+ Sodium Level 139 mEQ/L (135-145) Potassium Level 3.2 mEQ/L (3.4-4.9) L Chloride Level 101 mEQ/L (98-107) Carbon Dioxide Level 23 mEQ/L (20-30) Anion Gap 15 (5-15) Blood Urea Nitrogen 8 mg/dL (7-23) Creatinine 1.6 mg/dL (0.7-1.2) H Estimat Glomerular Filtration Rate 43.6 mL/min (>60) Glucose Level 132 mg/dL (74-106) H Calcium Level 7.6 mg/dL (8.6-10.2) L Phosphorus Level 2.7 mg/dL (2.5-4.8) Magnesium Level 1.4 mg/dL (1.7-2.5) L Total Bilirubin 0.6 mg/dL (0.0-1.2) Aspartate Amino Transf (AST/SGOT) 13 U/L (5-40) Alanine Aminotransferase (ALT/SGPT) 32 U/L (3-41) Alkaline Phosphatase 148 U/L (40-129) H C-Reactive Protein, Quantitative 6.1 mg/dL (< 0.5) H Total Protein 6.3 g/dL (6.6-8.7) L Albumin 2.7 g/dL (3.5-5.2) L Globulin 3.6 g/dL Albumin/Globulin Ratio 0.7 (1.0-2.7) L Current Medications Medications (Trade) Dose Ordered Sig/Arti Route PRN Reason Start Time Stop Time Status Last Admin Dose Admin Acetaminophen (Tylenol) 650 mg Q4H PRN ORAL Mild Pain (Pain Scale 1-3) 08/23/16 09:30 09/22/16 09:29 08/23/16 14:17 Amlodipine Besylate (Norvasc) 10 mg DAILY ORAL 08/23/16 09:00 09/22/16 08:59 08/24/16 09:01 Ampicillin Sodium/ Sulbactam Sodium 3 gm/Sodium Chloride 110 ml @ 220 mls/hr Q8H IVPB 08/22/16 13:00 08/29/16 12:59 08/24/16 05:01 Dextrose/Sodium Chloride (D5ns) 1,000 ml @ 75 mls/hr [id number] IV 08/21/16 13:00 09/20/16 12:59 08/24/16 09:00 Dronabinol (Marinol) 2.5 mg TID ORAL 08/24/16 13:00 09/23/16 12:59 08/24/16 13:07 Epoetin [place] 5000 units 5,000 units SUN-SUN-SUN SUBQ 08/23/16 21:00 09/22/16 20:59 08/23/16 21:31 Fluconazole/ Sodium Chloride (Diflucan 400mg/ 200ml Premix) 200 ml @ 100 mls/hr Q24H IV 08/22/16 10:00 08/29/16 09:59 08/24/16 09:55 Hydromorphone HCl (Dilaudid) 0.5 mg Q4H PRN IVP Severe Pain (Pain Scale 7-10) 08/23/16 09:42 08/28/16 12:44 08/23/16 16:50 Lactobacillus Acidophilus (Culturelle) 1 tab THREE TIMES A DAY ORAL 08/24/16 09:00 09/23/16 08:59 08/24/16 13:07 Metoprolol Tartrate 25 mg 25 mg Q12HR ORAL 08/21/16 21:00 09/20/16 20:59 08/24/16 09:01 Metronidazole (Flagyl) 100 ml @ 100 mls/hr Q8HR IVPB 08/22/16 16:00 08/29/16 15:59 08/24/16 05:57 Tamsulosin HCl (Flomax) 0.4 mg BID ORAL 08/22/16 18:00 09/21/16 17:59 08/24/16 09:01 Piyush Harris M.D. Aug 24, 2016 16:44
[2016-08-24] MEDS ORDERED: Ampicillin/Sulbactam Sod 3 GM in NS 110 ML IVPB ONE (20:30)
[2016-08-25] VITALS: BP 143/75
[2016-08-25 04:00] VITALS: BP 123/74
[2016-08-25] MEDS: Ampicillin/Sulbactam Sod 3 GM in NS 110 ML IVPB SCH ×3 (05:02→21:56)
[2016-08-25] MEDS: metroNIDAZOLE 500mg 100 ML IVPB SCH ×3 (05:57→23:45)
[2016-08-25 07:06] LABS: EOSINOPHILS % (AUTO) 5.7 % (0.0-3.0); LYMPHOCYTES % (AUTO) 14.7 % (20.0-45.0); MEAN CORPUSCULAR HEMOGLOBIN 29.7 PG (27.0-31.0); MEAN CORPUSCULAR HGB CONC 33.4 G/DL (32.0-36.0); MEAN CORPUSCULAR VOLUME 89 FL (80-99); MEAN PLATELET VOLUME 6.8 FL (6.5-10.1); NEUTROPHILS % (AUTO) 69.6 % (45.0-75.0); PLATELET COUNT 350 K/UL (150-450); RED BLOOD COUNT 3.56 M/UL (4.70-6.10); RED CELL DISTRIBUTION WIDTH 14.1 % (11.6-14.8); WHITE BLOOD COUNT 9.8 K/UL (4.8-10.8)
[2016-08-25 07:43] LABS: ALBUMIN/GLOBULIN RATIO 0.6 (1.0-2.7); CREATININE 1.6 mg/dL (0.7-1.2); CRP QUANT 3.9 mg/dL (< 0.5); GLOMERULAR FILTRATION RATE 43.6 mL/min (>60); MAGNESIUM 2.3 mg/dL (1.7-2.5); PHOSPHORUS 2.4 mg/dL (2.5-4.8); POTASSIUM 3.1 mEQ/L (3.4-4.9); TOTAL PROTEIN 6.8 g/dL (6.6-8.7)
[2016-08-25 08:00] VITALS: BP 135/79
[2016-08-25] MEDS: Tamsulosin 0.4mg cap ORAL SCH ×2 (08:21→17:31)
[2016-08-25] MEDS: Metoprolol 25mg tab ORAL SCH ×2 (08:21→21:56)
[2016-08-25] MEDS: Dronabinol 2.5mg Cap ORAL SCH ×3 (08:21→17:31)
[2016-08-25] MEDS: Lactobacillus-GG tablet ORAL SCH ×3 (08:22→17:31)
[2016-08-25] MEDS: D5NS 1,000 ML IV SCH (09:46)
[2016-08-25 12:00] VITALS: BP 131/80
[2016-08-25] MEDS ORDERED: Potassium Phosphate 30 MM in NS 275 ML IV ONE (12:00)
--- NOTE | 2016-08-25 14:30 | General Progress Note ---
Assessment/Plan Status: stable Assessment/Plan - Resolving acute renal failure - Sepsis - Watery diarrhea C diff negative - Suspected Leak of anastomosis between gastrointestinal structures - Anemia - HTN Plan: Mag Phos supplement as needed Transfusion--done- Antibiotics per ID Off oral Vanco on Flagyl, Unasyn, Fluconozol On PO Marinol, will increase the dose BP control PT OT incentive spirometery GI advise requested, appreciated DC planning- Will discuss with ID Subjective ROS Limited/Unobtainable: No Constitutional: Reports: malaise Allergies: Coded Allergies: No Known Allergies (Unverified , 07/26/16) Objective Last 24 Hour Vital Signs Date Time Temp Pulse Resp B/P Pulse Ox O2 Delivery O2 Flow Rate FiO2 08/25/16 12:00 66 08/25/16 12:00 97.2 70 17 131/80 98 Room Air 68 08/25/16 08:22 67 135/79 08/25/16 08:21 67 135/79 08/25/16 08:00 70 08/25/16 08:00 97.2 67 17 135/79 98 Room Air 68 08/25/16 04:00 97.2 70 20 123/74 99 Room Air 08/25/16 04:00 63 08/25/16 00:00 97.7 68 20 143/75 98 Room Air 08/25/16 00:00 70 08/24/16 21:59 78 135/85 08/24/16 20:00 96.3 78 20 135/85 98 Room Air 08/24/16 20:00 84 08/24/16 16:00 78 08/24/16 16:00 98.1 77 144/89 Intake and Output 08/24/16 08/25/16 19:00 07:00 Intake Total 835 ml 1871 ml Output Total 700 ml Balance 835 ml 1171 ml Intake Oral 460 ml 500 ml IV Total 375 ml 1371 ml Output Urine Total 700 ml # Voids 2 3 Laboratory Tests 08/25/16 05:00: White Blood Count 9.8, Red Blood Count 3.56L, Hemoglobin 10.6#L, Hematocrit 31.7 #L, Mean Corpuscular Volume 89, Mean Corpuscular Hemoglobin 29.7, Mean Corpuscular Hemoglobin Concent 33.4, Red Cell Distribution Width 14.1, Platelet Count 350, Mean Platelet Volume 6.8, Neutrophils (%) (Auto) 69.6, Lymphocytes (% ) (Auto) 14.7L, Monocytes (%) (Auto) 8.0, Eosinophils (%) (Auto) 5.7H, Basophils (%) (Auto) 2.0, Sodium Level 139, Potassium Level 3.1L, Chloride Level 99, Carbon Dioxide Level 22, Anion Gap 18H, Blood Urea Nitrogen 6L, Creatinine 1.6H, Estimat Glomerular Filtration Rate 43.6, Glucose Level 120H, Calcium Level 8.0L, Phosphorus Level 2.4L, Magnesium Level 2.3, Total Bilirubin 0.6, Aspartate Amino Transf (AST/SGOT) 15, Alanine Aminotransferase (ALT/SGPT) 26, Alkaline Phosphatase 153H, C-Reactive Protein, Quantitative 3.9H, Total Protein 6.8, Albumin 2.7L, Globulin 4.1, Albumin/Globulin Ratio 0.6L Height (Feet): 5 Height (Inches): 6.00 Weight (Pounds): 160 General Appearance: no apparent distress, lethargic, other - more active- apetite better- Objective other PE not changed- no edema REBECCA SCHULTE Aug 25, 2016 14:30
[2016-08-25] MEDS ORDERED: D5NS 1,000 ML IV SCH (15:45)
[2016-08-25 16:00] VITALS: BP 136/85
--- NOTE | 2016-08-25 16:41 | Infectious Diseases Prog Note ---
Assessment/Plan Problems: (1) Sepsis Assessment & Plan: improving, suspect anastomosis leak VS colitis, on unasyn , fluconazol, and iv flagyl empirically to cover for possible mesenteric phlegmon. barium enema didn't show leakage . stool for culture is negative , and C diff toxin is negative , blood culture is negative . may D/C home on oral antibiotics with Augmentin, flegyl and fluconazole for three weeks , with follow up with general surgery (2) Watery diarrhea Assessment & Plan: improving, short bowel syndrome VS colitis, stool for C diff is negative, and culture is negative , improving iv unasyn and flagyl for colitis (3) Leak of anastomosis between gastrointestinal structures Assessment & Plan: low grade as per CT which was done with oral contrast, had barium enema which was negative for leakage , general surgery is following (4) MIGNON (acute kidney injury) Assessment & Plan: due to dehydration, improving, continue hydration , monitor urine output and renal function test, avoid nephrotoxic meds , renal is following Subjective Gastrointestinal/Abdominal: Reports: bloating, other - pain Allergies: Coded Allergies: No Known Allergies (Unverified , 07/26/16) Subjective feels much better today, tolerated oral diet Objective Vital Signs Last 24 Hour Vital Signs Date Time Temp Pulse Resp B/P Pulse Ox O2 Delivery O2 Flow Rate FiO2 08/25/16 12:00 66 08/25/16 12:00 97.2 70 17 131/80 98 Room Air 68 08/25/16 08:22 67 135/79 08/25/16 08:21 67 135/79 08/25/16 08:00 70 08/25/16 08:00 97.2 67 17 135/79 98 Room Air 68 08/25/16 04:00 97.2 70 20 123/74 99 Room Air 08/25/16 04:00 63 08/25/16 00:00 97.7 68 20 143/75 98 Room Air 08/25/16 00:00 70 08/24/16 21:59 78 135/85 08/24/16 20:00 96.3 78 20 135/85 98 Room Air 08/24/16 20:00 84 Height (Feet): 5 Height (Inches): 6.00 Weight (Pounds): 160 General Appearance: WD/WN, no acute distress HEENT: normocephalic, atraumatic, anicteric, mucous membranes moist, PERRL Respiratory/Chest: chest wall non-tender, lungs clear, normal breath sounds, no respiratory distress, no accessory muscle use Cardiovascular: normal peripheral pulses, normal rate, regular rhythm Abdomen: normal bowel sounds, no mass, distended Extremities: no cyanosis, no clubbing Skin: no rash, no lesions Laboratory Tests Test 08/25/16 05:00 White Blood Count 9.8 K/UL (4.8-10.8) Red Blood Count 3.56 M/UL (4.70-6.10) L Hemoglobin 10.6 G/DL (14.2-18.0) #L Hematocrit 31.7 % (42.0-52.0) #L Mean Corpuscular Volume 89 FL (80-99) Mean Corpuscular Hemoglobin 29.7 PG (27.0-31.0) Mean Corpuscular Hemoglobin Concent 33.4 G/DL (32.0-36.0) Red Cell Distribution Width 14.1 % (11.6-14.8) Platelet Count 350 K/UL (150-450) Mean Platelet Volume 6.8 FL (6.5-10.1) Neutrophils (%) (Auto) 69.6 % (45.0-75.0) Lymphocytes (%) (Auto) 14.7 % (20.0-45.0) L Monocytes (%) (Auto) 8.0 % (1.0-10.0) Eosinophils (%) (Auto) 5.7 % (0.0-3.0) H Basophils (%) (Auto) 2.0 % (0.0-2.0) Sodium Level 139 mEQ/L (135-145) Potassium Level 3.1 mEQ/L (3.4-4.9) L Chloride Level 99 mEQ/L (98-107) Carbon Dioxide Level 22 mEQ/L (20-30) Anion Gap 18 (5-15) H Blood Urea Nitrogen 6 mg/dL (7-23) L Creatinine 1.6 mg/dL (0.7-1.2) H Estimat Glomerular Filtration Rate 43.6 mL/min (>60) Glucose Level 120 mg/dL (74-106) H Calcium Level 8.0 mg/dL (8.6-10.2) L Phosphorus Level 2.4 mg/dL (2.5-4.8) L Magnesium Level 2.3 mg/dL (1.7-2.5) Total Bilirubin 0.6 mg/dL (0.0-1.2) Aspartate Amino Transf (AST/SGOT) 15 U/L (5-40) Alanine Aminotransferase (ALT/SGPT) 26 U/L (3-41) Alkaline Phosphatase 153 U/L (40-129) H C-Reactive Protein, Quantitative 3.9 mg/dL (< 0.5) H Total Protein 6.8 g/dL (6.6-8.7) Albumin 2.7 g/dL (3.5-5.2) L Globulin 4.1 g/dL Albumin/Globulin Ratio 0.6 (1.0-2.7) L Current Medications Medications (Trade) Dose Ordered Sig/Arti Route PRN Reason Start Time Stop Time Status Last Admin Dose Admin Acetaminophen (Tylenol) 650 mg Q4H PRN ORAL Mild Pain (Pain Scale 1-3) 08/23/16 09:30 09/22/16 09:29 08/24/16 23:34 Amlodipine Besylate (Norvasc) 10 mg DAILY ORAL 08/23/16 09:00 09/22/16 08:59 08/25/16 08:22 Ampicillin Sodium/ Sulbactam Sodium 3 gm/Sodium Chloride 110 ml @ 220 mls/hr Q8H IVPB 08/25/16 05:00 09/01/16 04:59 08/25/16 12:47 Dextrose/Sodium Chloride (D5ns) 1,000 ml @ 50 mls/hr Q20H IV 08/25/16 15:45 09/24/16 15:44 08/25/16 16:04 Dronabinol 2.5 mg 2.5 mg TID ORAL 08/24/16 13:00 09/23/16 12:59 08/25/16 12:47 Epoetin [place] (Procrit (for non ESRD use)) 5,000 units SUN-SUN-SUN SUBQ 08/23/16 21:00 09/22/16 20:59 08/23/16 21:31 Fluconazole/ Sodium Chloride (Diflucan 400mg/ 200ml Premix) 200 ml @ 100 mls/hr Q24H IV 08/22/16 10:00 08/29/16 09:59 08/25/16 09:44 Hydromorphone HCl (Dilaudid) 0.5 mg Q4H PRN IVP Severe Pain (Pain Scale 7-10) 08/23/16 09:42 08/28/16 12:44 08/23/16 16:50 Lactobacillus Acidophilus (Culturelle) 1 tab THREE TIMES A DAY ORAL 08/24/16 09:00 09/23/16 08:59 08/25/16 12:47 Metoprolol Tartrate 25 mg 25 mg Q12HR ORAL 08/21/16 21:00 09/20/16 20:59 08/25/16 08:21 Metronidazole 100 ml @ 100 mls/hr Q8HR IVPB 08/24/16 22:00 08/31/16 21:59 08/25/16 13:25 Potassium Phosphate 30 mm/ Sodium Chloride 285 ml @ 47.5 mls/hr ONCE ONCE IV 08/25/16 12:00 08/25/16 17:59 08/25/16 12:00 Tamsulosin HCl (Flomax) 0.4 mg BID ORAL 08/22/16 18:00 09/21/16 17:59 08/25/16 08:21 Piyush Harris M.D. Aug 25, 2016 16:41
[2016-08-25 20:00] VITALS: BP 132/87
[2016-08-25] MEDS: Epogen (for non ESRD use) SUBQ SCH (21:56)
--- NOTE | 2016-08-25 23:02 | General Progress Note ---
Assessment/Plan Assessment/Plan Assessment - abd pain - improving with abx - Leukocytosis - resolved with abx - phlegmon/bubbles - responding to Rx, can consider repeat CT late next week - s/p multiple abd surgeries - now slow recovery - anemia - weakness - needs rehab - anorexia - needs encouragement Recommendations - Push po - Abx x 2 weeks - consider re-imaging prior to completion of abx - OOB/PT - Elevate HOB Subjective Allergies: Coded Allergies: No Known Allergies (Unverified , 07/26/16) Subjective Better sitting in bed DTR at bedside less pain Objective Last 24 Hour Vital Signs Date Time Temp Pulse Resp B/P Pulse Ox O2 Delivery O2 Flow Rate FiO2 08/25/16 21:56 75 132/87 08/25/16 20:00 98.0 75 20 132/87 98 Room Air 08/25/16 16:00 97.8 74 21 136/85 98 Room Air 08/25/16 12:00 66 08/25/16 12:00 97.2 70 17 131/80 98 Room Air 68 08/25/16 08:22 67 135/79 08/25/16 08:21 67 135/79 08/25/16 08:00 70 08/25/16 08:00 97.2 67 17 135/79 98 Room Air 68 08/25/16 04:00 97.2 70 20 123/74 99 Room Air 08/25/16 04:00 63 08/25/16 00:00 97.7 68 20 143/75 98 Room Air 08/25/16 00:00 70 Intake and Output 08/24/16 08/25/16 19:00 07:00 Intake Total 835 ml 1871 ml Output Total 700 ml Balance 835 ml 1171 ml Intake Oral 460 ml 500 ml IV Total 375 ml 1371 ml Output Urine Total 700 ml # Voids 2 3 Laboratory Tests 08/25/16 05:00: White Blood Count 9.8, Red Blood Count 3.56L, Hemoglobin 10.6#L, Hematocrit 31.7 #L, Mean Corpuscular Volume 89, Mean Corpuscular Hemoglobin 29.7, Mean Corpuscular Hemoglobin Concent 33.4, Red Cell Distribution Width 14.1, Platelet Count 350, Mean Platelet Volume 6.8, Neutrophils (%) (Auto) 69.6, Lymphocytes (% ) (Auto) 14.7L, Monocytes (%) (Auto) 8.0, Eosinophils (%) (Auto) 5.7H, Basophils (%) (Auto) 2.0, Sodium Level 139, Potassium Level 3.1L, Chloride Level 99, Carbon Dioxide Level 22, Anion Gap 18H, Blood Urea Nitrogen 6L, Creatinine 1.6H, Estimat Glomerular Filtration Rate 43.6, Glucose Level 120H, Calcium Level 8.0L, Phosphorus Level 2.4L, Magnesium Level 2.3, Total Bilirubin 0.6, Aspartate Amino Transf (AST/SGOT) 15, Alanine Aminotransferase (ALT/SGPT) 26, Alkaline Phosphatase 153H, C-Reactive Protein, Quantitative 3.9H, Total Protein 6.8, Albumin 2.7L, Globulin 4.1, Albumin/Globulin Ratio 0.6L Height (Feet): 5 Height (Inches): 6.00 Weight (Pounds): 160 Objective WDWN NCAT supple CTA RRR abd soft ND, minimal pelvic TTP No edema non focal ALVAREZ MARTINEZ Aug 25, 2016 23:02
[2016-08-26] VITALS: BP 137/91
[2016-08-26 04:00] VITALS: BP 132/79
[2016-08-26] MEDS: Ampicillin/Sulbactam Sod 3 GM in NS 110 ML IVPB SCH ×3 (05:09→23:38)
[2016-08-26] MEDS: metroNIDAZOLE 500mg 100 ML IVPB SCH ×4 (06:12→23:37)
[2016-08-26 07:27] LABS: BASOPHILS % (AUTO) 1.6 % (0.0-2.0); EOSINOPHILS % (AUTO) 4.8 % (0.0-3.0); LYMPHOCYTES % (AUTO) 11.5 % (20.0-45.0); MEAN CORPUSCULAR HEMOGLOBIN 29.5 PG (27.0-31.0); MEAN CORPUSCULAR HGB CONC 33.2 G/DL (32.0-36.0); MEAN CORPUSCULAR VOLUME 89 FL (80-99); MEAN PLATELET VOLUME 6.4 FL (6.5-10.1); MONOCYTES % (AUTO) 8.9 % (1.0-10.0); NEUTROPHILS % (AUTO) 73.2 % (45.0-75.0); PLATELET COUNT 351 K/UL (150-450); RED BLOOD COUNT 3.54 M/UL (4.70-6.10); RED CELL DISTRIBUTION WIDTH 14.1 % (11.6-14.8); WHITE BLOOD COUNT 10.5 K/UL (4.8-10.8)
[2016-08-26 07:54] LABS: ALBUMIN/GLOBULIN RATIO 0.6 (1.0-2.7); CREATININE 1.6 mg/dL (0.7-1.2); CRP QUANT 2.1 mg/dL (< 0.5); GLOMERULAR FILTRATION RATE 43.6 mL/min (>60); MAGNESIUM 1.6 mg/dL (1.7-2.5); PHOSPHORUS 3.6 mg/dL (2.5-4.8); POTASSIUM 3.2 mEQ/L (3.4-4.9); TOTAL PROTEIN 6.5 g/dL (6.6-8.7)
[2016-08-26 07:59] VITALS: BP 139/83
--- NOTE | 2016-08-26 08:32 | General Progress Note ---
Assessment/Plan Status: stable Assessment/Plan - Resolving acute renal failure - Sepsis - Watery diarrhea C diff negative - Suspected Leak of anastomosis between gastrointestinal structures - Anemia - HTN Plan: DC IV Fluid- Mag Phos supplement as needed Transfusion--done- Antibiotics per ID on Flagyl, Unasyn, Fluconozol On PO Marinol, will increase the dose BP control PT OT incentive spirometery GI advise requested, appreciated DC planning- Will discuss with ID Subjective ROS Limited/Unobtainable: No Constitutional: Reports: malaise, other - stronger Allergies: Coded Allergies: No Known Allergies (Unverified , 07/26/16) Objective Last 24 Hour Vital Signs Date Time Temp Pulse Resp B/P Pulse Ox O2 Delivery O2 Flow Rate FiO2 08/26/16 07:59 97.5 68 20 139/83 100 Room Air 08/26/16 04:00 97.9 68 20 132/79 94 Nasal Cannula 2.0 08/26/16 04:00 70 08/26/16 00:00 97.3 83 18 137/91 99 Room Air 08/26/16 00:00 72 08/25/16 21:56 75 132/87 08/25/16 20:00 74 08/25/16 20:00 98.0 75 20 132/87 98 Room Air 08/25/16 16:00 97.8 74 21 136/85 98 Room Air 08/25/16 12:00 66 08/25/16 12:00 97.2 70 17 131/80 98 Room Air 68 08/25/16 08:22 67 135/79 08/25/16 08:21 67 135/79 Intake and Output 08/25/16 08/26/16 19:00 07:00 Intake Total 1644.5 ml 1290 ml Balance 1644.5 ml 1290 ml Intake Oral 460 ml 370 ml IV Total 1184.5 ml 920 ml # Voids 2 3 # Bowel Movements 1 Laboratory Tests 08/26/16 05:55: White Blood Count 10.5, Red Blood Count 3.54L, Hemoglobin 10.4L, Hematocrit 31.5L, Mean Corpuscular Volume 89, Mean Corpuscular Hemoglobin 29.5, Mean Corpuscular Hemoglobin Concent 33.2, Red Cell Distribution Width 14.1, Platelet Count 351, Mean Platelet Volume 6.4L, Neutrophils (%) (Auto) 73.2, Lymphocytes ( %) (Auto) 11.5L, Monocytes (%) (Auto) 8.9, Eosinophils (%) (Auto) 4.8H, Basophils (%) (Auto) 1.6, Sodium Level 139, Potassium Level 3.2L, Chloride Level 99, Carbon Dioxide Level 22, Anion Gap 18H, Blood Urea Nitrogen 5L, Creatinine 1.6H, Estimat Glomerular Filtration Rate 43.6, Glucose Level 112H, Calcium Level 8.0L, Phosphorus Level 3.6, Magnesium Level 1.6L, Total Bilirubin 0.5, Aspartate Amino Transf (AST/SGOT) 23, Alanine Aminotransferase (ALT/SGPT) 21, Alkaline Phosphatase 159H, C-Reactive Protein, Quantitative 2.1H, Pro-B- Type Natriuretic Peptide 620H, Total Protein 6.5L, Albumin 2.6L, Globulin 3.9, Albumin/Globulin Ratio 0.6L Height (Feet): 5 Height (Inches): 6.00 Weight (Pounds): 160 General Appearance: no apparent distress Cardiovascular: regular rhythm Respiratory/Chest: lungs clear Abdomen: soft Objective other PE not changed- no edema REBECCA SCHULTE Aug 26, 2016 08:32
[2016-08-26] MEDS: Dronabinol 2.5mg Cap ORAL SCH ×3 (09:04→21:39)
[2016-08-26] MEDS: Metoprolol 25mg tab ORAL SCH ×2 (09:04→21:39)
[2016-08-26] MEDS: Lactobacillus-GG tablet ORAL SCH ×3 (09:05→18:20)
[2016-08-26] MEDS: Tamsulosin 0.4mg cap ORAL SCH ×2 (09:05→18:21)
[2016-08-26] MEDS: Hydromorphone 0.5mg/0.5ml inj IVP PRN (10:24)
[2016-08-26 11:15] LABS: OTHERS PATHOLOGIST COMMENT
[2016-08-26 11:19] VITALS: BP 121/76
[2016-08-26] MEDS ORDERED: D5NS 1,000 ML IV SCH (15:00)
--- NOTE | 2016-08-26 15:29 | Infectious Diseases Prog Note ---
Assessment/Plan Problems: (1) Sepsis Assessment & Plan: improving, suspect anastomosis leak VS colitis, on unasyn , fluconazol, and iv flagyl empirically to cover for possible mesenteric phlegmon. barium enema didn't show leakage . stool for culture is negative , and C diff toxin is negative , blood culture is negative . may D/C home on oral antibiotics with Augmentin, flegyl and fluconazole for two weeks , with follow up with general surgery (2) Watery diarrhea Assessment & Plan: improving, short bowel syndrome VS colitis, stool for C diff is negative, and culture is negative , on iv unasyn and flagyl for colitis (3) Leak of anastomosis between gastrointestinal structures Assessment & Plan: low grade as per CT which was done with oral contrast, had barium enema which was negative for leakage , general surgery is following (4) MIGNON (acute kidney injury) Assessment & Plan: due to dehydration, improving, continue hydration , monitor urine output and renal function test, avoid nephrotoxic meds , renal is following Subjective Gastrointestinal/Abdominal: Reports: bloating Allergies: Coded Allergies: No Known Allergies (Unverified , 07/26/16) All Systems: reviewed and negative except above Subjective feels much better today, tolerated oral diet well, has more energy . Objective Vital Signs Last 24 Hour Vital Signs Date Time Temp Pulse Resp B/P Pulse Ox O2 Delivery O2 Flow Rate FiO2 08/26/16 11:19 97.7 64 20 121/76 100 Room Air 08/26/16 10:54 97.7 08/26/16 09:05 68 139/83 08/26/16 09:04 68 139/83 08/26/16 08:00 75 08/26/16 07:59 97.5 68 20 139/83 100 Room Air 08/26/16 04:00 97.9 68 20 132/79 94 Nasal Cannula 2.0 08/26/16 04:00 70 08/26/16 00:00 97.3 83 18 137/91 99 Room Air 08/26/16 00:00 72 08/25/16 21:56 75 132/87 08/25/16 20:00 74 08/25/16 20:00 98.0 75 20 132/87 98 Room Air 08/25/16 16:00 97.8 74 21 136/85 98 Room Air Height (Feet): 5 Height (Inches): 6.00 Weight (Pounds): 160 General Appearance: WD/WN, no acute distress HEENT: normocephalic, atraumatic, anicteric, mucous membranes moist Respiratory/Chest: chest wall non-tender, lungs clear, normal breath sounds, no respiratory distress, no accessory muscle use Cardiovascular: normal peripheral pulses, normal rate, regular rhythm, no gallop/murmur Abdomen: normal bowel sounds, no organomegaly, non distended, no mass, hypoactive bowel sounds, tender Extremities: no cyanosis, no clubbing Skin: no rash, no lesions, no ulcers Laboratory Tests Test 08/26/16 05:55 White Blood Count 10.5 K/UL (4.8-10.8) Red Blood Count 3.54 M/UL (4.70-6.10) L Hemoglobin 10.4 G/DL (14.2-18.0) L Hematocrit 31.5 % (42.0-52.0) L Mean Corpuscular Volume 89 FL (80-99) Mean Corpuscular Hemoglobin 29.5 PG (27.0-31.0) Mean Corpuscular Hemoglobin Concent 33.2 G/DL (32.0-36.0) Red Cell Distribution Width 14.1 % (11.6-14.8) Platelet Count 351 K/UL (150-450) Mean Platelet Volume 6.4 FL (6.5-10.1) L Neutrophils (%) (Auto) 73.2 % (45.0-75.0) Lymphocytes (%) (Auto) 11.5 % (20.0-45.0) L Monocytes (%) (Auto) 8.9 % (1.0-10.0) Eosinophils (%) (Auto) 4.8 % (0.0-3.0) H Basophils (%) (Auto) 1.6 % (0.0-2.0) Sodium Level 139 mEQ/L (135-145) Potassium Level 3.2 mEQ/L (3.4-4.9) L Chloride Level 99 mEQ/L (98-107) Carbon Dioxide Level 22 mEQ/L (20-30) Anion Gap 18 (5-15) H Blood Urea Nitrogen 5 mg/dL (7-23) L Creatinine 1.6 mg/dL (0.7-1.2) H Estimat Glomerular Filtration Rate 43.6 mL/min (>60) Glucose Level 112 mg/dL (74-106) H Calcium Level 8.0 mg/dL (8.6-10.2) L Phosphorus Level 3.6 mg/dL (2.5-4.8) Magnesium Level 1.6 mg/dL (1.7-2.5) L Total Bilirubin 0.5 mg/dL (0.0-1.2) Aspartate Amino Transf (AST/SGOT) 23 U/L (5-40) Alanine Aminotransferase (ALT/SGPT) 21 U/L (3-41) Alkaline Phosphatase 159 U/L (40-129) H C-Reactive Protein, Quantitative 2.1 mg/dL (< 0.5) H Pro-B-Type Natriuretic Peptide 620 pg/mL (0-125) H Total Protein 6.5 g/dL (6.6-8.7) L Albumin 2.6 g/dL (3.5-5.2) L Globulin 3.9 g/dL Albumin/Globulin Ratio 0.6 (1.0-2.7) L Current Medications Medications (Trade) Dose Ordered Sig/Arti Route PRN Reason Start Time Stop Time Status Last Admin Dose Admin Acetaminophen (Tylenol) 650 mg Q4H PRN ORAL Mild Pain (Pain Scale 1-3) 08/26/16 17:30 09/25/16 17:29 Amlodipine Besylate (Norvasc) 10 mg DAILY ORAL 08/27/16 09:00 09/26/16 08:59 Ampicillin Sodium/ Sulbactam Sodium 3 gm/Sodium Chloride 110 ml @ 220 mls/hr Q8H IVPB 08/26/16 21:00 09/01/16 04:59 Dronabinol (Marinol) 5 mg TID ORAL 08/26/16 18:00 09/25/16 17:59 Epoetin [place] (Procrit (for non ESRD use)) 5,000 units SUN-WED-SUN SUBQ 08/28/16 21:00 09/27/16 20:59 Fluconazole/ Sodium Chloride 200 ml @ 100 mls/hr Q24H IV 08/27/16 10:00 08/29/16 09:59 Hydromorphone HCl (Dilaudid) 0.5 mg Q4H PRN IVP Severe Pain (Pain Scale 7-10) 08/26/16 17:45 09/02/16 17:44 Lactobacillus Acidophilus (Culturelle) 1 tab THREE TIMES A DAY ORAL 08/26/16 18:00 09/25/16 17:59 Metoprolol Tartrate (Lopressor) 25 mg Q12HR ORAL 08/26/16 21:00 09/25/16 20:59 Metronidazole (Flagyl) 100 ml @ 100 mls/hr Q8HR IVPB 08/26/16 14:00 08/31/16 21:59 08/26/16 14:17 Potassium Chloride (K-Dur) 40 meq TWICE A DAY ORAL 08/26/16 18:00 09/25/16 17:59 Tamsulosin HCl (Flomax) 0.4 mg BID ORAL 08/26/16 18:00 09/25/16 17:59 Piyush Harris M.D. Aug 26, 2016 15:29
[2016-08-26 16:27] VITALS: BP 132/86
[2016-08-26] MEDS ORDERED: Tubing Blood Filter IV ONE (17:01)
[2016-08-26] MEDS ORDERED: NS 275ml ONE ×2 (17:01→17:07)
[2016-08-26] MEDS ORDERED: Tubing IV Secondary IV ONE (17:07)
[2016-08-26] MEDS ORDERED: Hydromorphone 0.5mg/0.5ml inj IVP PRN (17:45)
[2016-08-26] MEDS ORDERED: Dronabinol 2.5mg Cap ORAL SCH (18:00)
--- NOTE | 2016-08-26 20:17 | General Progress Note ---
Assessment/Plan Assessment/Plan Assessment - abd pain - improving with abx - Leukocytosis - resolved with abx - phlegmon/bubbles - responding to Rx, can consider repeat CT late next week - s/p multiple abd surgeries - now slow recovery - anemia - weakness - needs rehab - anorexia - needs encouragement Recommendations - Push po - Abx x 2 weeks - consider re-imaging prior to completion of abx - OOB/PT - Elevate HOB Subjective Allergies: Coded Allergies: No Known Allergies (Unverified , 07/26/16) Subjective Better sitting in bed DTR at bedside less pain Objective Last 24 Hour Vital Signs Date Time Temp Pulse Resp B/P Pulse Ox O2 Delivery O2 Flow Rate FiO2 08/26/16 16:27 97.5 69 19 132/86 97 Room Air 08/26/16 11:19 97.7 64 20 121/76 100 Room Air 08/26/16 10:54 97.7 08/26/16 09:05 68 139/83 08/26/16 09:04 68 139/83 08/26/16 08:00 75 08/26/16 07:59 97.5 68 20 139/83 100 Room Air 08/26/16 04:00 97.9 68 20 132/79 94 Nasal Cannula 2.0 08/26/16 04:00 70 08/26/16 00:00 97.3 83 18 137/91 99 Room Air 08/26/16 00:00 72 08/25/16 21:56 75 132/87 Intake and Output 08/25/16 08/26/16 19:00 07:00 Intake Total 1644.5 ml 1290 ml Balance 1644.5 ml 1290 ml Intake Oral 460 ml 370 ml IV Total 1184.5 ml 920 ml # Voids 2 3 # Bowel Movements 1 Laboratory Tests 08/26/16 05:55: White Blood Count 10.5, Red Blood Count 3.54L, Hemoglobin 10.4L, Hematocrit 31.5L, Mean Corpuscular Volume 89, Mean Corpuscular Hemoglobin 29.5, Mean Corpuscular Hemoglobin Concent 33.2, Red Cell Distribution Width 14.1, Platelet Count 351, Mean Platelet Volume 6.4L, Neutrophils (%) (Auto) 73.2, Lymphocytes ( %) (Auto) 11.5L, Monocytes (%) (Auto) 8.9, Eosinophils (%) (Auto) 4.8H, Basophils (%) (Auto) 1.6, Sodium Level 139, Potassium Level 3.2L, Chloride Level 99, Carbon Dioxide Level 22, Anion Gap 18H, Blood Urea Nitrogen 5L, Creatinine 1.6H, Estimat Glomerular Filtration Rate 43.6, Glucose Level 112H, Calcium Level 8.0L, Phosphorus Level 3.6, Magnesium Level 1.6L, Total Bilirubin 0.5, Aspartate Amino Transf (AST/SGOT) 23, Alanine Aminotransferase (ALT/SGPT) 21, Alkaline Phosphatase 159H, C-Reactive Protein, Quantitative 2.1H, Pro-B- Type Natriuretic Peptide 620H, Total Protein 6.5L, Albumin 2.6L, Globulin 3.9, Albumin/Globulin Ratio 0.6L Height (Feet): 5 Height (Inches): 6.00 Weight (Pounds): 160 Objective WDWN NCAT supple CTA RRR abd soft ND, minimal pelvic TTP No edema non focal ALVAREZ MARTINEZ Aug 26, 2016 20:17
[2016-08-26 20:21] VITALS: BP 133/81
[2016-08-27 00:54] VITALS: BP 135/86
[2016-08-27 04:00] VITALS: BP 124/82
[2016-08-27] MEDS: Ampicillin/Sulbactam Sod 3 GM in NS 110 ML IVPB SCH ×3 (04:48→21:18)
[2016-08-27] MEDS: metroNIDAZOLE 500mg 100 ML IVPB SCH (05:38)
[2016-08-27 08:00] VITALS: BP 120/83
[2016-08-27] MEDS: Lactobacillus-GG tablet ORAL SCH ×3 (08:49→16:40)
[2016-08-27] MEDS: Tamsulosin 0.4mg cap ORAL SCH ×2 (08:49→16:40)
[2016-08-27] MEDS: Dronabinol 2.5mg Cap ORAL SCH ×3 (08:49→16:41)
[2016-08-27] MEDS: Metoprolol 25mg tab ORAL SCH ×2 (08:50→21:18)
--- NOTE | 2016-08-27 10:18 | General Surgery Progress Note ---
General Surgery-Progress Note Subjective Symptoms: BM Objective Last 24 Hour Vital Signs Date Time Temp Pulse Resp B/P Pulse Ox O2 Delivery O2 Flow Rate FiO2 08/27/16 08:50 77 120/83 08/27/16 08:50 77 120/83 08/27/16 04:00 98.1 69 19 124/82 97 Room Air 08/27/16 00:54 97.7 79 20 135/86 97 Room Air 08/26/16 21:39 79 133/81 08/26/16 20:21 97.9 79 18 133/81 99 Room Air 08/26/16 16:27 97.5 69 19 132/86 97 Room Air 08/26/16 11:19 97.7 64 20 121/76 100 Room Air 08/26/16 10:54 97.7 I&O Intake and Output 08/26/16 08/27/16 19:00 07:00 Intake Total 850 ml 240 ml Output Total 300 ml Balance 550 ml 240 ml Intake Oral 250 ml 240 ml IV Total 600 ml Output Urine Total 300 ml # Voids 2 # Bowel Movements 2 Respiratory: clear Abdomen: soft, flat, non-tender, present bowel sounds Extremities: no tenderness Assessment Additional Comments intra abdominal phlegmon Plan Additional Comments continue IV Antibiotics EDWIN NOGUEIRA Aug 27, 2016 10:17
--- NOTE | 2016-08-27 11:44 | General Progress Note ---
Assessment/Plan Status: stable Assessment/Plan - Resolving acute renal failure - Sepsis - Watery diarrhea C diff negative - Suspected Leak of anastomosis between gastrointestinal structures - Anemia - HTN Plan: No labs today Mag Phos supplement as needed Had Transfusion Antibiotics per ID on Flagyl, Unasyn, Fluconozol Marinol, working well BP control PT OT incentive spirometery GI advise requested, appreciated DC planning-in am- on oral antibiotics Will discuss with ID Subjective ROS Limited/Unobtainable: No Constitutional: Reports: malaise, other - good apetite- Had BM Allergies: Coded Allergies: No Known Allergies (Unverified , 07/26/16) Objective Last 24 Hour Vital Signs Date Time Temp Pulse Resp B/P Pulse Ox O2 Delivery O2 Flow Rate FiO2 08/27/16 08:50 77 120/83 08/27/16 08:50 77 120/83 08/27/16 04:00 98.1 69 19 124/82 97 Room Air 08/27/16 00:54 97.7 79 20 135/86 97 Room Air 08/26/16 21:39 79 133/81 08/26/16 20:21 97.9 79 18 133/81 99 Room Air 08/26/16 16:27 97.5 69 19 132/86 97 Room Air Intake and Output 08/26/16 08/27/16 19:00 07:00 Intake Total 850 ml 240 ml Output Total 300 ml Balance 550 ml 240 ml Intake Oral 250 ml 240 ml IV Total 600 ml Output Urine Total 300 ml # Voids 2 # Bowel Movements 2 Height (Feet): 5 Height (Inches): 6.00 Weight (Pounds): 160 General Appearance: no apparent distress Cardiovascular: normal rate Respiratory/Chest: lungs clear Abdomen: soft Objective other PE not changed- no edema REBECCA SCHULTE Aug 27, 2016 11:44
[2016-08-27 12:00] VITALS: BP 136/91
[2016-08-27] MEDS: metroNIDAZOLE 500mg tab ORAL SCH ×2 (14:13→21:19)
--- NOTE | 2016-08-27 15:45 | General Progress Note ---
Assessment/Plan Assessment/Plan Assessment - abd pain - improving with abx - Leukocytosis - resolved with abx - phlegmon/bubbles - responding to Rx, will check CT in am prior to d/c planning - s/p multiple abd surgeries - now slow recovery - anemia - weakness - needs rehab - anorexia - needs encouragement Recommendations - Push po - Abx x 2 weeks - [address] in am - OOB/PT - Elevate HOB Subjective Allergies: Coded Allergies: No Known Allergies (Unverified , 07/26/16) Subjective c/o weakness c/o some abd pain, RLQ worried about going home Objective Last 24 Hour Vital Signs Date Time Temp Pulse Resp B/P Pulse Ox O2 Delivery O2 Flow Rate FiO2 08/27/16 12:00 98.2 65 18 136/91 99 Room Air 08/27/16 08:50 77 120/83 08/27/16 08:50 77 120/83 08/27/16 08:00 97.2 77 18 120/83 98 Room Air 08/27/16 04:00 98.1 69 19 124/82 97 Room Air 08/27/16 00:54 97.7 79 20 135/86 97 Room Air 08/26/16 21:39 79 133/81 08/26/16 20:21 97.9 79 18 133/81 99 Room Air 08/26/16 16:27 97.5 69 19 132/86 97 Room Air Intake and Output 08/26/16 08/27/16 19:00 07:00 Intake Total 850 ml 240 ml Output Total 300 ml Balance 550 ml 240 ml Intake Oral 250 ml 240 ml IV Total 600 ml Output Urine Total 300 ml # Voids 2 # Bowel Movements 2 Height (Feet): 5 Height (Inches): 6.00 Weight (Pounds): 160 Objective WDWN NCAT supple CTA RRR abd soft ND, mild RLQ fullness and TTP No edema non focal ALVAREZ MARTINEZ Aug 27, 2016 15:45
[2016-08-27 15:50] VITALS: BP 131/84
[2016-08-27] MEDS ORDERED: Tubing IV Secondary IV ONE (17:39)
[2016-08-27] MEDS ORDERED: NS 275ml ONE (17:39)
[2016-08-27 20:00] VITALS: BP 133/87
[2016-08-28] VITALS: BP 111/77
[2016-08-28 04:00] VITALS: BP 138/83
[2016-08-28] MEDS: Ampicillin/Sulbactam Sod 3 GM in NS 110 ML IVPB SCH ×3 (05:21→20:16)
[2016-08-28] MEDS: metroNIDAZOLE 500mg tab ORAL SCH (05:22)
[2016-08-28 08:00] VITALS: BP 128/86
[2016-08-28 08:56] LABS: BASOPHILS % (AUTO) 1.2 % (0.0-2.0); EOSINOPHILS % (AUTO) 2.4 % (0.0-3.0); LYMPHOCYTES % (AUTO) 13.8 % (20.0-45.0); MEAN CORPUSCULAR HEMOGLOBIN 29.9 PG (27.0-31.0); MEAN CORPUSCULAR HGB CONC 33.6 G/DL (32.0-36.0); MEAN CORPUSCULAR VOLUME 89 FL (80-99); MEAN PLATELET VOLUME 5.9 FL (6.5-10.1); MONOCYTES % (AUTO) 6.1 % (1.0-10.0); NEUTROPHILS % (AUTO) 76.4 % (45.0-75.0); PLATELET COUNT 425 K/UL (150-450); RED BLOOD COUNT 4.05 M/UL (4.70-6.10); RED CELL DISTRIBUTION WIDTH 14.6 % (11.6-14.8)
[2016-08-28] MEDS ORDERED: Fluconazole 100mg tab ORAL SCH (09:00)
[2016-08-28] MEDS: Metoprolol 25mg tab ORAL SCH ×2 (09:00→20:11)
[2016-08-28 09:34] LABS: ALBUMIN/GLOBULIN RATIO 0.7 (1.0-2.7); CALCIUM 8.7 mg/dL (8.6-10.2); CREATININE 1.7 mg/dL (0.7-1.2); CRP QUANT 1.2 mg/dL (< 0.5); GLOMERULAR FILTRATION RATE 40.7 mL/min (>60); MAGNESIUM 1.6 mg/dL (1.7-2.5); PHOSPHORUS 3.1 mg/dL (2.5-4.8); POTASSIUM 4.2 mEQ/L (3.4-4.9); TOTAL PROTEIN 7.7 g/dL (6.6-8.7); URIC ACID 4.7 mg/dL (3.0-7.5)
[2016-08-28] MEDS: Tamsulosin 0.4mg cap ORAL SCH ×2 (11:33→17:04)
[2016-08-28] MEDS: Dronabinol 2.5mg Cap ORAL SCH ×3 (11:33→17:04)
[2016-08-28] MEDS: Lactobacillus-GG tablet ORAL SCH ×3 (11:33→17:04)
[2016-08-28 11:54] VITALS: BP 138/91
--- NOTE | 2016-08-28 12:09 | General Progress Note ---
Assessment/Plan Status: not improved Status Narrative WBCs higher More tender RLQ Assessment/Plan - Resolving acute renal failure - Sepsis - Watery diarrhea C diff negative - Suspected Leak of anastomosis between gastrointestinal structures - Anemia - HTN Plan: CT abd today Mag Phos supplement as needed Had Transfusion Antibiotics per ID on Flagyl, Unasyn, Fluconozol Marinol, working well BP control PT OT incentive spirometery Cancel DC pending the workup Subjective ROS Limited/Unobtainable: No Constitutional: Reports: malaise, weakness Gastrointestinal/Abdominal: Reports: abdominal pain Allergies: Coded Allergies: No Known Allergies (Unverified , 07/26/16) Objective Last 24 Hour Vital Signs Date Time Temp Pulse Resp B/P Pulse Ox O2 Delivery O2 Flow Rate FiO2 08/28/16 11:54 96.8 84 20 138/91 98 Room Air 08/28/16 09:00 72 128/86 08/28/16 09:00 72 128/86 08/28/16 08:00 99.0 72 19 128/86 98 Room Air 08/28/16 04:00 97.7 71 18 138/83 98 Room Air 08/28/16 00:00 98.2 75 16 111/77 97 Room Air 08/27/16 22:40 98.1 08/27/16 21:18 70 133/87 08/27/16 20:00 98.1 70 19 133/87 98 Room Air 08/27/16 15:50 97.7 66 18 131/84 99 Room Air Intake and Output 08/27/16 08/28/16 19:00 07:00 Intake Total 430 ml 530 ml Output Total 300 ml Balance 130 ml 530 ml Intake Oral 120 ml 420 ml IV Total 310 ml 110 ml Output Urine Total 300 ml # Voids 5 3 # Bowel Movements 1 Laboratory Tests 08/28/16 08:45: White Blood Count 13.0H, Red Blood Count 4.05L, Hemoglobin 12.1L, Hematocrit 36.1L, Mean Corpuscular Volume 89, Mean Corpuscular Hemoglobin 29.9, Mean Corpuscular Hemoglobin Concent 33.6, Red Cell Distribution Width 14.6, Platelet Count 425, Mean Platelet Volume 5.9L, Neutrophils (%) (Auto) 76.4H, Lymphocytes (%) (Auto) 13.8L, Monocytes (%) (Auto) 6.1, Eosinophils (%) (Auto) 2.4, Basophils (%) (Auto) 1.2, Sodium Level 137, Potassium Level 4.2, Chloride Level 98, Carbon Dioxide Level 22, Anion Gap 17H, Blood Urea Nitrogen 9, Creatinine 1.7H, Estimat Glomerular Filtration Rate 40.7, Glucose Level 106, Uric Acid 4.7 , Calcium Level 8.7, Phosphorus Level 3.1, Magnesium Level 1.6L, Total Bilirubin 0.6, Aspartate Amino Transf (AST/SGOT) 27, Alanine Aminotransferase ( ALT/SGPT) 24, Alkaline Phosphatase 164H, C-Reactive Protein, Quantitative 1.2H, Total Protein 7.7, Albumin 3.3L, Globulin 4.4, Albumin/Globulin Ratio 0.7L Height (Feet): 5 Height (Inches): 6.00 Weight (Pounds): 160 General Appearance: mild distress, other - anxious Respiratory/Chest: decreased breath sounds Abdomen: distended, tender - lright lower Quadrant Objective other PE not changed- no edema REBECCA SCHULTE Aug 28, 2016 12:09
[2016-08-28] MEDS: metroNIDAZOLE 500mg 100 ML IVPB SCH ×2 (14:14→21:11)
--- NOTE | 2016-08-28 14:15 | Diagnostic Imaging Report ---
Indication: Abdominal pain Technique: Spiral acquisitions obtained through the abdomen and pelvis. Patient given oral contrast. No IV contrast utilized, per referring physician request.. Multiplanar reconstructions were generated. Total dose length product 609 mGycm. CTDIvol(s) 11 mGy Comparison: 08/21/2016 Findings: Again demonstrated is evidence of prior anastomotic surgery of the cecum. Again demonstrated are inflammatory changes of the adjacent mesenteric root. The amount of inflammatory infiltration is minimally decreased from the prior study. Previously demonstrated gas bubbles are no longer evident. There is no evidence of extravasated contrast and there is good contrast opacification of the bowel. The proximal sigmoid passes through the area of postsurgical inflammatory change, appears somewhat thickwalled, although this area is nondistended and the wall thickening could be an artifact of under distention. The proximal sigmoid and distal descending colon also demonstrates suggestion of slight wall thickening, although this likewise is in areas of under distention, and the well distended segments of colon do not demonstrate significant wall thickening. A few small bowel loops are mildly dilated. However, contrast is seen all the way through the large and small bowel, indicating absence of obstructive pathology. A few small bowel loops also appear to demonstrates some wall thickening. In the area of postsurgical inflammation, no new fluid collections are evident. No free intraperitoneal fluid is demonstrated. No free intraperitoneal air. Again demonstrated is suggestion of gastric wall thickening mostly in the dependent portions, likely artifact of under distention. However, as previously apparent wall thickening in the region of the gastric antrum is noted, circumferential. Lack of IV contrast limits assessment of the solid organs. The liver, gallbladder, bile ducts, pancreas, spleen, are unremarkable. Again demonstrated are bilateral intrarenal calculi. No evidence of hydronephrosis or hydroureter area the bladder is unremarkable. The prostate is mildly enlarged with a calcification. The included lung bases are clear. The bones are unremarkable. Impression: Right lower quadrant postsurgical changes, as described. Postsurgical inflammatory changes appear similar to or perhaps minimally improved as compared to prior study of 7 days earlier. Previously demonstrated gas bubbles in the adjacent mesenteric root are no longer evident. There is no evidence of contrast extravasation or abscess formation to suggest leakage at the anastomotic site No evidence of small bowel obstruction Areas of apparent colonic and small bowel wall thickening. Suspect that these are all just artifact of under distention, but enteritis/colitis not completely excludable Apparent gastric wall thickening. Again, likely artifact of under distention but gastritis or peptic ulcer disease, particularly in the antrum Bilateral nonobstructive intrarenal calculi incidentally noted, also previously described Prostatomegaly, also previously described Findings discussed by phone with Dr. Jennings at the time of interpretation The CT scanner at [facility] is accredited by the [employer] and the scans are performed using protocols designed to limit radiation exposure to as low as reasonably achievable to attain images of sufficient resolution adequate for diagnostic evaluation.
[2016-08-28 16:03] VITALS: BP 135/88
--- NOTE | 2016-08-28 16:22 | Infectious Diseases Prog Note ---
Assessment/Plan Problems: (1) Sepsis Assessment & Plan: improving, with repeated CT abdomen today didn't show any leakage at the anastomosis site, continue unasyn , fluconazol, and iv flagyl empirically to cover for possible mesenteric phlegmon. barium enema didn't show leakage . stool for culture is negative , and C diff toxin is negative , blood culture is negative . may D/C home on oral antibiotics with Augmentin, flegyl and fluconazole for two more weeks , with follow up with general surgery (2) Watery diarrhea Assessment & Plan: improving, suspect short bowel syndrome VS colitis, stool for C diff is negative, and culture is negative , on iv unasyn and flagyl for colitis, improving (3) Leak of anastomosis between gastrointestinal structures Assessment & Plan: no evidence of leakage on repeated CT scan today , had barium enema which was negative for leakage , recommend follow up with general surgery (4) MIGNON (acute kidney injury) Assessment & Plan: improving, due to sepsis and dehydration,monitor urine output and renal function test, avoid nephrotoxic meds , renal is following (5) Abdominal pain Assessment & Plan: chronic due to multiple surgeries, continue pain management and follow up with general surgery Subjective Gastrointestinal/Abdominal: Reports: bloating, diarrhea, other - pressure Allergies: Coded Allergies: No Known Allergies (Unverified , 07/26/16) Subjective still have some lower abdomen pressure, like cramps , but tolerated oral diet well, and had BM . Objective Vital Signs Last 24 Hour Vital Signs Date Time Temp Pulse Resp B/P Pulse Ox O2 Delivery O2 Flow Rate FiO2 08/28/16 16:03 97.9 80 20 135/88 99 Room Air 08/28/16 11:54 96.8 84 20 138/91 98 Room Air 08/28/16 09:00 72 128/86 08/28/16 09:00 72 128/86 08/28/16 08:00 99.0 72 19 128/86 98 Room Air 08/28/16 04:00 97.7 71 18 138/83 98 Room Air 08/28/16 00:00 98.2 75 16 111/77 97 Room Air 08/27/16 22:40 98.1 08/27/16 21:18 70 133/87 08/27/16 20:00 98.1 70 19 133/87 98 Room Air Height (Feet): 5 Height (Inches): 6.00 Weight (Pounds): 160 General Appearance: WD/WN, no acute distress HEENT: normocephalic, atraumatic, anicteric, mucous membranes moist Respiratory/Chest: chest wall non-tender, lungs clear, normal breath sounds, no respiratory distress, no accessory muscle use Cardiovascular: normal peripheral pulses, normal rate, regular rhythm, no gallop/murmur, no JVD Abdomen: no organomegaly, non distended, no mass, hypoactive bowel sounds, distended, tender Extremities: no cyanosis, no clubbing Skin: no rash, no lesions, no ulcers Laboratory Tests Test 08/28/16 08:45 White Blood Count 13.0 K/UL (4.8-10.8) H Red Blood Count 4.05 M/UL (4.70-6.10) L Hemoglobin 12.1 G/DL (14.2-18.0) L Hematocrit 36.1 % (42.0-52.0) L Mean Corpuscular Volume 89 FL (80-99) Mean Corpuscular Hemoglobin 29.9 PG (27.0-31.0) Mean Corpuscular Hemoglobin Concent 33.6 G/DL (32.0-36.0) Red Cell Distribution Width 14.6 % (11.6-14.8) Platelet Count 425 K/UL (150-450) Mean Platelet Volume 5.9 FL (6.5-10.1) L Neutrophils (%) (Auto) 76.4 % (45.0-75.0) H Lymphocytes (%) (Auto) 13.8 % (20.0-45.0) L Monocytes (%) (Auto) 6.1 % (1.0-10.0) Eosinophils (%) (Auto) 2.4 % (0.0-3.0) Basophils (%) (Auto) 1.2 % (0.0-2.0) Sodium Level 137 mEQ/L (135-145) Potassium Level 4.2 mEQ/L (3.4-4.9) Chloride Level 98 mEQ/L (98-107) Carbon Dioxide Level 22 mEQ/L (20-30) Anion Gap 17 (5-15) H Blood Urea Nitrogen 9 mg/dL (7-23) Creatinine 1.7 mg/dL (0.7-1.2) H Estimat Glomerular Filtration Rate 40.7 mL/min (>60) Glucose Level 106 mg/dL (74-106) Uric Acid 4.7 mg/dL (3.0-7.5) Calcium Level 8.7 mg/dL (8.6-10.2) Phosphorus Level 3.1 mg/dL (2.5-4.8) Magnesium Level 1.6 mg/dL (1.7-2.5) L Total Bilirubin 0.6 mg/dL (0.0-1.2) Aspartate Amino Transf (AST/SGOT) 27 U/L (5-40) Alanine Aminotransferase (ALT/SGPT) 24 U/L (3-41) Alkaline Phosphatase 164 U/L (40-129) H C-Reactive Protein, Quantitative 1.2 mg/dL (< 0.5) H Total Protein 7.7 g/dL (6.6-8.7) Albumin 3.3 g/dL (3.5-5.2) L Globulin 4.4 g/dL Albumin/Globulin Ratio 0.7 (1.0-2.7) L Current Medications Medications (Trade) Dose Ordered Sig/Arti Route PRN Reason Start Time Stop Time Status Last Admin Dose Admin Acetaminophen (Tylenol) 650 mg Q4H PRN ORAL Mild Pain (Pain Scale 1-3) 08/26/16 17:30 09/25/16 17:29 08/27/16 21:36 Amlodipine Besylate (Norvasc) 10 mg DAILY ORAL 08/27/16 09:00 09/26/16 08:59 08/27/16 08:50 Ampicillin Sodium/ Sulbactam Sodium/ Sodium Chloride (Unasyn/Sodium Chloride) 110 ml @ 220 mls/hr Q8H IVPB 08/26/16 21:00 09/01/16 04:59 08/28/16 12:28 Dronabinol 5 mg 5 mg TID ORAL 08/26/16 21:30 09/25/16 21:29 08/28/16 12:28 Epoetin [place] (Procrit (for non ESRD use)) 5,000 units SUN-SUN-SUN SUBQ 08/28/16 21:00 09/27/16 20:59 Fluconazole/ Sodium Chloride 100 ml @ 100 mls/hr Q24H IV 08/28/16 15:00 09/04/16 14:59 08/28/16 14:14 Hydromorphone HCl (Dilaudid) 0.5 mg Q4H PRN IVP Severe Pain (Pain Scale 7-10) 08/26/16 17:45 09/02/16 17:44 Lactobacillus Acidophilus (Culturelle) 1 tab THREE TIMES A DAY ORAL 08/26/16 18:00 09/25/16 17:59 08/28/16 12:28 Metoprolol Tartrate (Lopressor) 25 mg Q12HR ORAL 08/26/16 21:00 09/25/16 20:59 08/27/16 21:18 Metronidazole (Flagyl) 100 ml @ 100 mls/hr Q8HR IVPB 08/28/16 14:00 09/04/16 13:59 08/28/16 14:14 Ondansetron HCl (Zofran) 4 mg Q8H PRN IVP Nausea & Vomiting 08/26/16 19:15 09/25/16 19:14 Potassium Chloride (K-Dur) 40 meq TWICE A DAY ORAL 08/26/16 18:00 09/25/16 17:59 08/28/16 11:33 Tamsulosin HCl (Flomax) 0.4 mg BID ORAL 08/26/16 18:00 09/25/16 17:59 08/28/16 11:33 Piyush Harris M.D. Aug 28, 2016 16:21
[2016-08-28] MEDS: Epogen (for non ESRD use) SUBQ SCH (17:43)
[2016-08-28 20:20] VITALS: BP 143/90
--- NOTE | 2016-08-28 22:45 | General Progress Note ---
Assessment/Plan Assessment/Plan Assessment - abd pain - improved - Leukocytosis - concerning WBC rise noted - CT negative for abscess. Noted patchy thickened colon- ? under distention - s/p multiple abd surgeries - now slow recovery - anemia - weakness - needs rehab - anorexia - needs encouragement Recommendations - Push po - Abx - re check WBC in am - OOB/PT - Elevate HOB Subjective Allergies: Coded Allergies: No Known Allergies (Unverified , 07/26/16) Subjective c/o weakness c/o some abd pain, RLQ d/w , radiology, PMD Objective Last 24 Hour Vital Signs Date Time Temp Pulse Resp B/P Pulse Ox O2 Delivery O2 Flow Rate FiO2 08/28/16 20:20 98.4 83 19 143/90 95 Room Air 08/28/16 20:11 83 143/90 08/28/16 16:03 97.9 80 20 135/88 99 Room Air 08/28/16 11:54 96.8 84 20 138/91 98 Room Air 08/28/16 09:00 72 128/86 08/28/16 09:00 72 128/86 08/28/16 08:00 99.0 72 19 128/86 98 Room Air 08/28/16 04:00 97.7 71 18 138/83 98 Room Air 08/28/16 00:00 98.2 75 16 111/77 97 Room Air 08/27/16 22:40 98.1 Intake and Output 08/27/16 08/28/16 19:00 07:00 Intake Total 430 ml 530 ml Output Total 300 ml Balance 130 ml 530 ml Intake Oral 120 ml 420 ml IV Total 310 ml 110 ml Output Urine Total 300 ml # Voids 5 3 # Bowel Movements 1 Laboratory Tests 08/28/16 08:45: White Blood Count 13.0H, Red Blood Count 4.05L, Hemoglobin 12.1L, Hematocrit 36.1L, Mean Corpuscular Volume 89, Mean Corpuscular Hemoglobin 29.9, Mean Corpuscular Hemoglobin Concent 33.6, Red Cell Distribution Width 14.6, Platelet Count 425, Mean Platelet Volume 5.9L, Neutrophils (%) (Auto) 76.4H, Lymphocytes (%) (Auto) 13.8L, Monocytes (%) (Auto) 6.1, Eosinophils (%) (Auto) 2.4, Basophils (%) (Auto) 1.2, Sodium Level 137, Potassium Level 4.2, Chloride Level 98, Carbon Dioxide Level 22, Anion Gap 17H, Blood Urea Nitrogen 9, Creatinine 1.7H, Estimat Glomerular Filtration Rate 40.7, Glucose Level 106, Uric Acid 4.7 , Calcium Level 8.7, Phosphorus Level 3.1, Magnesium Level 1.6L, Total Bilirubin 0.6, Aspartate Amino Transf (AST/SGOT) 27, Alanine Aminotransferase ( ALT/SGPT) 24, Alkaline Phosphatase 164H, C-Reactive Protein, Quantitative 1.2H, Total Protein 7.7, Albumin 3.3L, Globulin 4.4, Albumin/Globulin Ratio 0.7L Height (Feet): 5 Height (Inches): 6.00 Weight (Pounds): 160 Objective WDWN NCAT supple CTA RRR abd soft ND, mild RLQ fullness and TTP No edema non focal ALVAREZ MARTINEZ Aug 28, 2016 22:45
[2016-08-29] VITALS: BP 134/91
[2016-08-29 04:00] VITALS: BP 134/93
[2016-08-29] MEDS: metroNIDAZOLE 500mg 100 ML IVPB SCH ×3 (05:25→21:43)
[2016-08-29] MEDS: Ampicillin/Sulbactam Sod 3 GM in NS 110 ML IVPB SCH ×3 (05:25→20:19)
[2016-08-29 07:00] LABS: BASOPHILS % (AUTO) 1.1 % (0.0-2.0); EOSINOPHILS % (AUTO) 3.2 % (0.0-3.0); LYMPHOCYTES % (AUTO) 14.6 % (20.0-45.0); MEAN CORPUSCULAR HEMOGLOBIN 29.8 PG (27.0-31.0); MEAN CORPUSCULAR HGB CONC 32.4 G/DL (32.0-36.0); MEAN CORPUSCULAR VOLUME 92 FL (80-99); MEAN PLATELET VOLUME 5.8 FL (6.5-10.1); MONOCYTES % (AUTO) 7.6 % (1.0-10.0); NEUTROPHILS % (AUTO) 73.6 % (45.0-75.0); PLATELET COUNT 385 K/UL (150-450); RED BLOOD COUNT 3.79 M/UL (4.70-6.10); RED CELL DISTRIBUTION WIDTH 14.7 % (11.6-14.8); WHITE BLOOD COUNT 11.9 K/UL (4.8-10.8)
[2016-08-29 07:13] LABS: ALBUMIN/GLOBULIN RATIO 0.6 (1.0-2.7); CALCIUM 8.5 mg/dL (8.6-10.2); CREATININE 1.6 mg/dL (0.7-1.2); CRP QUANT 1.1 mg/dL (< 0.5); GLOMERULAR FILTRATION RATE 43.6 mL/min (>60); MAGNESIUM 1.6 mg/dL (1.7-2.5); PHOSPHORUS 3.2 mg/dL (2.5-4.8); POTASSIUM 4.4 mEQ/L (3.4-4.9); TOTAL PROTEIN 7.4 g/dL (6.6-8.7); URIC ACID 4.8 mg/dL (3.0-7.5)
[2016-08-29] MEDS: Tamsulosin 0.4mg cap ORAL SCH ×2 (08:02→17:08)
[2016-08-29] MEDS: Metoprolol 25mg tab ORAL SCH ×2 (08:03→20:17)
[2016-08-29] MEDS: Lactobacillus-GG tablet ORAL SCH ×3 (08:03→17:07)
[2016-08-29] MEDS: Dronabinol 2.5mg Cap ORAL SCH ×3 (08:03→17:08)
[2016-08-29 08:35] VITALS: BP 143/96
[2016-08-29 11:49] VITALS: BP 123/78
--- NOTE | 2016-08-29 14:44 | Cardiology Report ---
APPROVED REPORT EKG Measurement Heart [id number] Sinus tachycardia Otherwise normal ECG
--- NOTE | 2016-08-29 14:56 | General Surgery Progress Note ---
General Surgery-Progress Note Subjective Symptoms: BM Objective Last 24 Hour Vital Signs Date Time Temp Pulse Resp B/P Pulse Ox O2 Delivery O2 Flow Rate FiO2 08/29/16 11:49 98.1 69 15 123/78 99 Room Air 08/29/16 08:35 98.2 76 14 143/96 98 Room Air 08/29/16 08:03 78 136/88 08/29/16 08:03 78 136/88 08/29/16 04:00 98.1 78 20 134/93 99 08/29/16 00:00 98.1 76 19 134/91 98 08/28/16 20:20 98.4 83 19 143/90 95 Room Air 08/28/16 20:11 83 143/90 08/28/16 16:03 97.9 80 20 135/88 99 Room Air I&O Intake and Output 08/28/16 08/29/16 19:00 07:00 Intake Total 200 ml 630 ml Balance 200 ml 630 ml Intake Oral 420 ml IV Total 200 ml 210 ml # Voids 2 3 Respiratory: clear Abdomen: soft, flat, non-tender, present bowel sounds Extremities: no tenderness Laboratory Tests Test 08/29/16 05:30 White Blood Count 11.9 K/UL (4.8-10.8) H Red Blood Count 3.79 M/UL (4.70-6.10) L Hemoglobin 11.3 G/DL (14.2-18.0) L Hematocrit 34.9 % (42.0-52.0) L Mean Corpuscular Volume 92 FL (80-99) Mean Corpuscular Hemoglobin 29.8 PG (27.0-31.0) Mean Corpuscular Hemoglobin Concent 32.4 G/DL (32.0-36.0) Red Cell Distribution Width 14.7 % (11.6-14.8) Platelet Count 385 K/UL (150-450) Mean Platelet Volume 5.8 FL (6.5-10.1) L Neutrophils (%) (Auto) 73.6 % (45.0-75.0) Lymphocytes (%) (Auto) 14.6 % (20.0-45.0) L Monocytes (%) (Auto) 7.6 % (1.0-10.0) Eosinophils (%) (Auto) 3.2 % (0.0-3.0) H Basophils (%) (Auto) 1.1 % (0.0-2.0) Sodium Level 138 mEQ/L (135-145) Potassium Level 4.4 mEQ/L (3.4-4.9) Chloride Level 100 mEQ/L (98-107) Carbon Dioxide Level 22 mEQ/L (20-30) Anion Gap 16 (5-15) H Blood Urea Nitrogen 10 mg/dL (7-23) Creatinine 1.6 mg/dL (0.7-1.2) H Estimat Glomerular Filtration Rate 43.6 mL/min (>60) Glucose Level 108 mg/dL (74-106) H Uric Acid 4.8 mg/dL (3.0-7.5) Calcium Level 8.5 mg/dL (8.6-10.2) L Phosphorus Level 3.2 mg/dL (2.5-4.8) Magnesium Level 1.6 mg/dL (1.7-2.5) L Total Bilirubin 0.5 mg/dL (0.0-1.2) Gamma Glutamyl Transpeptidase 146 U/L (8-61) H Aspartate Amino Transf (AST/SGOT) 19 U/L (5-40) Alanine Aminotransferase (ALT/SGPT) 20 U/L (3-41) Alkaline Phosphatase 141 U/L (40-129) H C-Reactive Protein, Quantitative 1.1 mg/dL (< 0.5) H Pro-B-Type Natriuretic Peptide 200 pg/mL (0-125) H Total Protein 7.4 g/dL (6.6-8.7) Albumin 3.0 g/dL (3.5-5.2) L Globulin 4.4 g/dL Albumin/Globulin Ratio 0.6 (1.0-2.7) L Assessment Additional Comments Intra abdominal Phlegmon Plan Additional Comments Continue antibiotics EDWIN NOGUEIRA Aug 29, 2016 14:56
--- NOTE | 2016-08-29 15:16 | General Progress Note ---
Assessment/Plan Status: stable Status Narrative CT results favorable Assessment/Plan - Resolving acute renal failure (ATN) - Sepsis, Resolving peritonitis - Watery diarrhea C diff negative - Suspected Leak of anastomosis between gastrointestinal structures - Anemia - HTN Plan: CT abd results noted Mag Phos supplement as needed Had Transfusion Antibiotics per ID on Flagyl, Unasyn, Fluconozol Marinol, working well BP control PT OT incentive spirometery DC to ECF in am - will talk to family Subjective ROS Limited/Unobtainable: No Constitutional: Reports: malaise Allergies: Coded Allergies: No Known Allergies (Unverified , 07/26/16) Objective Last 24 Hour Vital Signs Date Time Temp Pulse Resp B/P Pulse Ox O2 Delivery O2 Flow Rate FiO2 08/29/16 11:49 98.1 69 15 123/78 99 Room Air 08/29/16 08:35 98.2 76 14 143/96 98 Room Air 08/29/16 08:03 78 136/88 08/29/16 08:03 78 136/88 08/29/16 04:00 98.1 78 20 134/93 99 08/29/16 00:00 98.1 76 19 134/91 98 08/28/16 20:20 98.4 83 19 143/90 95 Room Air 08/28/16 20:11 83 143/90 08/28/16 16:03 97.9 80 20 135/88 99 Room Air Intake and Output 08/28/16 08/29/16 19:00 07:00 Intake Total 200 ml 630 ml Balance 200 ml 630 ml Intake Oral 420 ml IV Total 200 ml 210 ml # Voids 2 3 Laboratory Tests 08/29/16 05:30: White Blood Count 11.9H, Red Blood Count 3.79L, Hemoglobin 11.3L, Hematocrit 34.9L, Mean Corpuscular Volume 92, Mean Corpuscular Hemoglobin 29.8, Mean Corpuscular Hemoglobin Concent 32.4, Red Cell Distribution Width 14.7, Platelet Count 385, Mean Platelet Volume 5.8L, Neutrophils (%) (Auto) 73.6, Lymphocytes ( %) (Auto) 14.6L, Monocytes (%) (Auto) 7.6, Eosinophils (%) (Auto) 3.2H, Basophils (%) (Auto) 1.1, Sodium Level 138, Potassium Level 4.4, Chloride Level 100, Carbon Dioxide Level 22, Anion Gap 16H, Blood Urea Nitrogen 10, Creatinine 1.6H, Estimat Glomerular Filtration Rate 43.6, Glucose Level 108H, Uric Acid 4.8 , Calcium Level 8.5L, Phosphorus Level 3.2, Magnesium Level 1.6L, Total Bilirubin 0.5, Gamma Glutamyl Transpeptidase 146H, Aspartate Amino Transf (AST/ SGOT) 19, Alanine Aminotransferase (ALT/SGPT) 20, Alkaline Phosphatase 141H, C- Reactive Protein, Quantitative 1.1H, Pro-B-Type Natriuretic Peptide 200H, Total Protein 7.4, Albumin 3.0L, Globulin 4.4, Albumin/Globulin Ratio 0.6L Height (Feet): 5 Height (Inches): 6.00 Weight (Pounds): 160 General Appearance: no apparent distress, lethargic Cardiovascular: regular rhythm Respiratory/Chest: decreased breath sounds Abdomen: soft, distended Objective other PE not changed- no edema REBECCA SCHULTE Aug 29, 2016 15:16
--- NOTE | 2016-08-29 15:50 | General Progress Note ---
Assessment/Plan Assessment/Plan Assessment - abd pain - improved - Leukocytosis - concerning WBC rise noted, now lower - CT negative for abscess. Noted patchy thickened colon- ? under distention - s/p multiple abd surgeries - now slow recovery - anemia - weakness - needs rehab - anorexia - needs encouragement - loose BM, r/o C diff Recommendations - Push po - Abx - re check WBC in am - check C diff - OOB/PT - Elevate HOB Subjective Allergies: Coded Allergies: No Known Allergies (Unverified , 07/26/16) Subjective less pain no new complaints d/w pt re CT and labs some loose BM Objective Last 24 Hour Vital Signs Date Time Temp Pulse Resp B/P Pulse Ox O2 Delivery O2 Flow Rate FiO2 08/29/16 11:49 98.1 69 15 123/78 99 Room Air 08/29/16 08:35 98.2 76 14 143/96 98 Room Air 08/29/16 08:03 78 136/88 08/29/16 08:03 78 136/88 08/29/16 04:00 98.1 78 20 134/93 99 08/29/16 00:00 98.1 76 19 134/91 98 08/28/16 20:20 98.4 83 19 143/90 95 Room Air 08/28/16 20:11 83 143/90 08/28/16 16:03 97.9 80 20 135/88 99 Room Air Intake and Output 08/28/16 08/29/16 19:00 07:00 Intake Total 200 ml 630 ml Balance 200 ml 630 ml Intake Oral 420 ml IV Total 200 ml 210 ml # Voids 2 3 Laboratory Tests 08/29/16 05:30: White Blood Count 11.9H, Red Blood Count 3.79L, Hemoglobin 11.3L, Hematocrit 34.9L, Mean Corpuscular Volume 92, Mean Corpuscular Hemoglobin 29.8, Mean Corpuscular Hemoglobin Concent 32.4, Red Cell Distribution Width 14.7, Platelet Count 385, Mean Platelet Volume 5.8L, Neutrophils (%) (Auto) 73.6, Lymphocytes ( %) (Auto) 14.6L, Monocytes (%) (Auto) 7.6, Eosinophils (%) (Auto) 3.2H, Basophils (%) (Auto) 1.1, Sodium Level 138, Potassium Level 4.4, Chloride Level 100, Carbon Dioxide Level 22, Anion Gap 16H, Blood Urea Nitrogen 10, Creatinine 1.6H, Estimat Glomerular Filtration Rate 43.6, Glucose Level 108H, Uric Acid 4.8 , Calcium Level 8.5L, Phosphorus Level 3.2, Magnesium Level 1.6L, Total Bilirubin 0.5, Gamma Glutamyl Transpeptidase 146H, Aspartate Amino Transf (AST/ SGOT) 19, Alanine Aminotransferase (ALT/SGPT) 20, Alkaline Phosphatase 141H, C- Reactive Protein, Quantitative 1.1H, Pro-B-Type Natriuretic Peptide 200H, Total Protein 7.4, Albumin 3.0L, Globulin 4.4, Albumin/Globulin Ratio 0.6L Height (Feet): 5 Height (Inches): 6.00 Weight (Pounds): 160 Objective WDWN NCAT supple CTA RRR abd soft ND, mild RLQ fullness and TTP No edema non focal ALVAREZ MARTINEZ Aug 29, 2016 15:50
[2016-08-29 15:55] VITALS: BP 132/88
[2016-08-29 20:14] VITALS: BP 125/84
--- NOTE | 2016-08-29 22:17 | Infectious Diseases Prog Note ---
Assessment/Plan Problems: (1) Sepsis Assessment & Plan: improving, with repeated CT abdomen didn't show any leakage at the anastomosis site, continue unasyn , fluconazol, and iv flagyl empirically to cover for possible mesenteric phlegmon. stool culture is negative , and C diff toxin is negative , blood culture is negative . recommend to continue current antibiotics for two more weeks , with follow up with general surgery (2) Watery diarrhea Assessment & Plan: improving, suspect short bowel syndrome VS colitis, stool for C diff is negative, and culture is negative , on iv unasyn and flagyl for colitis, improving (3) Leak of anastomosis between gastrointestinal structures Assessment & Plan: no evidence of leakage on repeated CT scan , had barium enema which was negative for leakage , recommend follow up with general surgery (4) MIGNON (acute kidney injury) Assessment & Plan: improving, due to sepsis and dehydration,monitor urine output and renal function test, avoid nephrotoxic meds , renal is following (5) Abdominal pain Assessment & Plan: chronic due to multiple surgeries, continue pain management and follow up with general surgery Subjective Constitutional: Reports: anorexia Gastrointestinal/Abdominal: Reports: bloating, diarrhea, other - abdomina pain Allergies: Coded Allergies: No Known Allergies (Unverified , 07/26/16) All Systems: reviewed and negative except above Subjective he has less abdominal pressure, and cramps , tolerated oral diet well, and had BM , non bloody . Objective Vital Signs Last 24 Hour Vital Signs Date Time Temp Pulse Resp B/P Pulse Ox O2 Delivery O2 Flow Rate FiO2 08/29/16 20:17 78 125/84 08/29/16 20:14 98.2 78 18 125/84 99 Room Air 08/29/16 15:55 97.7 76 19 132/88 97 Room Air 08/29/16 11:49 98.1 69 15 123/78 99 Room Air 08/29/16 08:35 98.2 76 14 143/96 98 Room Air 08/29/16 08:03 78 136/88 08/29/16 08:03 78 136/88 08/29/16 04:00 98.1 78 20 134/93 99 08/29/16 00:00 98.1 76 19 134/91 98 Height (Feet): 5 Height (Inches): 6.00 Weight (Pounds): 160 General Appearance: WD/WN, no acute distress HEENT: normocephalic, atraumatic, anicteric, mucous membranes moist, PERRL Respiratory/Chest: chest wall non-tender, lungs clear, normal breath sounds, no respiratory distress, no accessory muscle use Cardiovascular: normal peripheral pulses, normal rate, regular rhythm, no gallop/murmur, no JVD Abdomen: normal bowel sounds, soft, non tender, no organomegaly, non distended , no mass, no scars Extremities: no cyanosis, no clubbing Skin: no rash, no lesions, no ulcers Laboratory Tests Test 08/29/16 05:30 White Blood Count 11.9 K/UL (4.8-10.8) H Red Blood Count 3.79 M/UL (4.70-6.10) L Hemoglobin 11.3 G/DL (14.2-18.0) L Hematocrit 34.9 % (42.0-52.0) L Mean Corpuscular Volume 92 FL (80-99) Mean Corpuscular Hemoglobin 29.8 PG (27.0-31.0) Mean Corpuscular Hemoglobin Concent 32.4 G/DL (32.0-36.0) Red Cell Distribution Width 14.7 % (11.6-14.8) Platelet Count 385 K/UL (150-450) Mean Platelet Volume 5.8 FL (6.5-10.1) L Neutrophils (%) (Auto) 73.6 % (45.0-75.0) Lymphocytes (%) (Auto) 14.6 % (20.0-45.0) L Monocytes (%) (Auto) 7.6 % (1.0-10.0) Eosinophils (%) (Auto) 3.2 % (0.0-3.0) H Basophils (%) (Auto) 1.1 % (0.0-2.0) Sodium Level 138 mEQ/L (135-145) Potassium Level 4.4 mEQ/L (3.4-4.9) Chloride Level 100 mEQ/L (98-107) Carbon Dioxide Level 22 mEQ/L (20-30) Anion Gap 16 (5-15) H Blood Urea Nitrogen 10 mg/dL (7-23) Creatinine 1.6 mg/dL (0.7-1.2) H Estimat Glomerular Filtration Rate 43.6 mL/min (>60) Glucose Level 108 mg/dL (74-106) H Uric Acid 4.8 mg/dL (3.0-7.5) Calcium Level 8.5 mg/dL (8.6-10.2) L Phosphorus Level 3.2 mg/dL (2.5-4.8) Magnesium Level 1.6 mg/dL (1.7-2.5) L Total Bilirubin 0.5 mg/dL (0.0-1.2) Gamma Glutamyl Transpeptidase 146 U/L (8-61) H Aspartate Amino Transf (AST/SGOT) 19 U/L (5-40) Alanine Aminotransferase (ALT/SGPT) 20 U/L (3-41) Alkaline Phosphatase 141 U/L (40-129) H C-Reactive Protein, Quantitative 1.1 mg/dL (< 0.5) H Pro-B-Type Natriuretic Peptide 200 pg/mL (0-125) H Total Protein 7.4 g/dL (6.6-8.7) Albumin 3.0 g/dL (3.5-5.2) L Globulin 4.4 g/dL Albumin/Globulin Ratio 0.6 (1.0-2.7) L Current Medications Medications (Trade) Dose Ordered Sig/Arti Route PRN Reason Start Time Stop Time Status Last Admin Dose Admin Acetaminophen (Tylenol) 650 mg Q4H PRN ORAL Mild Pain (Pain Scale 1-3) 08/26/16 17:30 09/25/16 17:29 08/27/16 21:36 Amlodipine Besylate (Norvasc) 10 mg DAILY ORAL 08/27/16 09:00 09/26/16 08:59 08/29/16 08:03 Ampicillin Sodium/ Sulbactam Sodium/ Sodium Chloride (Unasyn/Sodium Chloride) 110 ml @ 220 mls/hr Q8H IVPB 08/26/16 21:00 09/01/16 04:59 08/29/16 20:19 Dronabinol 5 mg 5 mg TID ORAL 08/26/16 21:30 09/25/16 21:29 08/29/16 17:08 Epoetin [place] (Procrit (for non ESRD use)) 5,000 units SUN-SUN-SUN SUBQ 08/28/16 21:00 09/27/16 20:59 Fluconazole/ Sodium Chloride 100 ml @ 100 mls/hr Q24H IV 08/28/16 15:00 09/04/16 14:59 08/29/16 13:32 Hydromorphone HCl (Dilaudid) 0.5 mg Q4H PRN IVP Severe Pain (Pain Scale 7-10) 08/26/16 17:45 09/02/16 17:44 Lactobacillus Acidophilus (Culturelle) 1 tab THREE TIMES A DAY ORAL 08/26/16 18:00 09/25/16 17:59 08/29/16 17:07 Metoprolol Tartrate (Lopressor) 25 mg Q12HR ORAL 08/26/16 21:00 09/25/16 20:59 08/29/16 20:17 Metronidazole (Flagyl) 100 ml @ 100 mls/hr Q8HR IVPB 08/28/16 14:00 09/04/16 13:59 08/29/16 21:43 Ondansetron HCl (Zofran) 4 mg Q8H PRN IVP Nausea & Vomiting 08/26/16 19:15 09/25/16 19:14 Potassium Chloride (KCl 10% 40mEq Oral solution) 40 meq TWICE A DAY ORAL 08/30/16 18:30 09/29/16 18:29 Tamsulosin HCl (Flomax) 0.4 mg BID ORAL 08/26/16 18:00 09/25/16 17:59 08/29/16 17:08 Piyush Harris M.D. Aug 29, 2016 22:17
[2016-08-30] VITALS: BP 129/84
[2016-08-30 04:00] VITALS: BP 138/82
[2016-08-30] MEDS: Ampicillin/Sulbactam Sod 3 GM in NS 110 ML IVPB SCH ×3 (05:00→20:07)
[2016-08-30] MEDS: metroNIDAZOLE 500mg 100 ML IVPB SCH ×3 (05:40→21:02)
[2016-08-30 07:05] LABS: BASOPHILS % (AUTO) 1.1 % (0.0-2.0); LYMPHOCYTES % (AUTO) 16.6 % (20.0-45.0); MEAN CORPUSCULAR HEMOGLOBIN 29.5 PG (27.0-31.0); MEAN CORPUSCULAR VOLUME 92 FL (80-99); MEAN PLATELET VOLUME 5.6 FL (6.5-10.1); MONOCYTES % (AUTO) 7.8 % (1.0-10.0); NEUTROPHILS % (AUTO) 70.6 % (45.0-75.0); PLATELET COUNT 385 K/UL (150-450); RED CELL DISTRIBUTION WIDTH 14.7 % (11.6-14.8); WHITE BLOOD COUNT 10.1 K/UL (4.8-10.8)
[2016-08-30 07:43] LABS: ALBUMIN/GLOBULIN RATIO 0.6 (1.0-2.7); CALCIUM 8.5 mg/dL (8.6-10.2); CREATININE 1.7 mg/dL (0.7-1.2); CRP QUANT 0.7 mg/dL (< 0.5); GLOMERULAR FILTRATION RATE 40.7 mL/min (>60); MAGNESIUM 1.5 mg/dL (1.7-2.5); PHOSPHORUS 3.3 mg/dL (2.5-4.8); POTASSIUM 4.4 mEQ/L (3.4-4.9); TOTAL PROTEIN 7.6 g/dL (6.6-8.7)
[2016-08-30 07:49] VITALS: BP 134/90
[2016-08-30] MEDS: Tamsulosin 0.4mg cap ORAL SCH ×2 (08:12→17:48)
[2016-08-30] MEDS: Lactobacillus-GG tablet ORAL SCH ×3 (08:12→17:48)
[2016-08-30] MEDS: Metoprolol 25mg tab ORAL SCH ×2 (08:12→20:06)
[2016-08-30] MEDS: Dronabinol 2.5mg Cap ORAL SCH ×3 (08:12→17:49)
[2016-08-30 11:49] VITALS: BP 120/81
[2016-08-30] MEDS: Neosporin Oph Soln 5ml Btl RIGHT EYE SCH ×3 (12:44→23:49)
--- NOTE | 2016-08-30 12:56 | General Progress Note ---
Assessment/Plan Status: stable Status Narrative DC to SNF - Family appealing Assessment/Plan - Resolving acute renal failure (ATN) - Sepsis, Resolving peritonitis - Watery diarrhea C diff negative - Suspected Leak of anastomosis between gastrointestinal structures - Anemia - HTN Plan: CT abd results noted Mag Phos supplement as needed Had Transfusion Antibiotics per ID on Flagyl, Unasyn, Fluconozol Marinol, working well BP control PT OT incentive spirometery DC to ECF in am - will talk to family Subjective ROS Limited/Unobtainable: No Constitutional: Reports: malaise Allergies: Coded Allergies: No Known Allergies (Unverified , 07/26/16) Objective Last 24 Hour Vital Signs Date Time Temp Pulse Resp B/P Pulse Ox O2 Delivery O2 Flow Rate FiO2 08/30/16 11:49 98.1 72 19 120/81 98 Room Air 08/30/16 08:12 93 134/90 08/30/16 08:12 93 134/90 08/30/16 07:49 97.8 93 21 134/90 98 Room Air 08/30/16 04:00 97.8 72 19 138/82 98 Room Air 08/30/16 00:00 97.5 74 18 129/84 99 Room Air 08/29/16 20:17 78 125/84 08/29/16 20:14 98.2 78 18 125/84 99 Room Air 08/29/16 15:55 97.7 76 19 132/88 97 Room Air Intake and Output 08/29/16 08/30/16 19:00 07:00 Intake Total 350 ml 650 ml Output Total 200 ml Balance 150 ml 650 ml Intake Oral 250 ml 440 ml IV Total 100 ml 210 ml Output Urine Total 200 ml # Voids 2 4 # Bowel Movements 1 Current Medications Medications (Trade) Dose Ordered Sig/Arti Route PRN Reason Start Time Stop Time Status Last Admin Dose Admin Acetaminophen (Tylenol) 650 mg Q4H PRN ORAL Mild Pain (Pain Scale 1-3) 08/26/16 17:30 09/25/16 17:29 08/27/16 21:36 Amlodipine Besylate (Norvasc) 10 mg DAILY ORAL 08/27/16 09:00 09/26/16 08:59 08/30/16 08:12 Ampicillin Sodium/ Sulbactam Sodium/ Sodium Chloride (Unasyn/Sodium Chloride) 110 ml @ 220 mls/hr Q8H IVPB 08/26/16 21:00 09/01/16 04:59 08/30/16 12:45 Dronabinol 5 mg 5 mg TID ORAL 08/26/16 21:30 09/25/16 21:29 08/30/16 12:45 Epoetin [place] (Procrit (for non ESRD use)) 5,000 units SUN-SUN-SUN SUBQ 08/28/16 21:00 09/27/16 20:59 Fluconazole/ Sodium Chloride 100 ml @ 100 mls/hr Q24H IV 08/28/16 15:00 09/04/16 14:59 08/29/16 13:32 Hydromorphone HCl (Dilaudid) 0.5 mg Q4H PRN IVP Severe Pain (Pain Scale 7-10) 08/26/16 17:45 09/02/16 17:44 Lactobacillus Acidophilus (Culturelle) 1 tab THREE TIMES A DAY ORAL 08/26/16 18:00 09/25/16 17:59 08/30/16 12:45 Metoprolol Tartrate (Lopressor) 25 mg Q12HR ORAL 08/26/16 21:00 09/25/16 20:59 08/30/16 08:12 Metronidazole (Flagyl) 100 ml @ 100 mls/hr Q8HR IVPB 08/28/16 14:00 09/04/16 13:59 08/30/16 05:40 Neomycin/ Polymyxin/ Gramicidin (Neosporin Op Soln) 1 drop Q6HR RIGHT EYE 08/30/16 12:00 09/06/16 11:59 08/30/16 12:44 Ondansetron HCl (Zofran) 4 mg Q8H PRN IVP Nausea & Vomiting 08/26/16 19:15 09/25/16 19:14 Potassium Chloride (KCl 10% 40mEq Oral solution) 40 meq TWICE A DAY ORAL 08/30/16 18:30 09/29/16 18:29 Tamsulosin HCl (Flomax) 0.4 mg BID ORAL 08/26/16 18:00 09/25/16 17:59 08/30/16 08:12 Laboratory Tests 08/30/16 05:40: White Blood Count 10.1, Red Blood Count 3.90L, Hemoglobin 11.5L, Hematocrit 36.0L, Mean Corpuscular Volume 92, Mean Corpuscular Hemoglobin 29.5, Mean Corpuscular Hemoglobin Concent 32.0, Red Cell Distribution Width 14.7, Platelet Count 385, Mean Platelet Volume 5.6L, Neutrophils (%) (Auto) 70.6, Lymphocytes ( %) (Auto) 16.6L, Monocytes (%) (Auto) 7.8, Eosinophils (%) (Auto) 4.0H, Basophils (%) (Auto) 1.1, Sodium Level 136, Potassium Level 4.4, Chloride Level 98, Carbon Dioxide Level 22, Anion Gap 16H, Blood Urea Nitrogen 11, Creatinine 1.7H, Estimat Glomerular Filtration Rate 40.7, Glucose Level 135H, Calcium Level 8.5L, Phosphorus Level 3.3, Magnesium Level 1.5L, Total Bilirubin 0.5, Aspartate Amino Transf (AST/SGOT) 18, Alanine Aminotransferase (ALT/SGPT) 17, Alkaline Phosphatase 134H, C-Reactive Protein, Quantitative 0.7H, Total Protein 7.6, Albumin 3.0L, Globulin 4.6, Albumin/Globulin Ratio 0.6L Height (Feet): 5 Height (Inches): 6.00 Weight (Pounds): 160 General Appearance: no apparent distress, lethargic Cardiovascular: normal rate Respiratory/Chest: lungs clear Abdomen: soft Objective other PE not changed- no edema REBECCA SCHULTE Aug 30, 2016 12:56
[2016-08-30] MEDS ORDERED: NORVASC10 MG ORAL (13:02)
[2016-08-30] MEDS ORDERED: FLAGYL500 MG ORAL (13:02)
[2016-08-30] MEDS ORDERED: FLOMAX0.4 MG ORAL (13:02)
[2016-08-30] MEDS ORDERED: FLUCONAZOLE100 MG ORAL (13:02)
[2016-08-30] MEDS ORDERED: LOPRESSOR25 M1 ORAL (13:02)
[2016-08-30] MEDS ORDERED: UNASYN 3 GM VIAL3 GM IJ (13:02)
[2016-08-30] MEDS ORDERED: CULTURELLE1 EACH ORAL (13:02)
[2016-08-30] MEDS ORDERED: MARINOL2.5 MG ORAL (13:02)
--- NOTE | 2016-08-30 13:04 | Discharge Instructions ---
Discharge Instructions Discharge Instructions Follow up with: with PMD Services at Discharge: physical therapy Diet: regular, other - regular Activity: as tolerated, other - PT OT For Surgical Patients May shower: Yes For Congestive Heart Failure Reminder Report to your physician any weight gain of 5 pounds or more in one week. REBECCA SCHULTE Aug 30, 2016 13:04
[2016-08-30 16:00] VITALS: BP 130/83
--- NOTE | 2016-08-30 16:49 | General Surgery Progress Note ---
General Surgery-Progress Note Subjective Symptoms: BM Objective Last 24 Hour Vital Signs Date Time Temp Pulse Resp B/P Pulse Ox O2 Delivery O2 Flow Rate FiO2 08/30/16 16:00 97.9 80 18 130/83 98 Room Air 08/30/16 11:49 98.1 72 19 120/81 98 Room Air 08/30/16 08:12 93 134/90 08/30/16 08:12 93 134/90 08/30/16 07:49 97.8 93 21 134/90 98 Room Air 08/30/16 04:00 97.8 72 19 138/82 98 Room Air 08/30/16 00:00 97.5 74 18 129/84 99 Room Air 08/29/16 20:17 78 125/84 08/29/16 20:14 98.2 78 18 125/84 99 Room Air I&O Intake and Output 08/29/16 08/30/16 19:00 07:00 Intake Total 350 ml 650 ml Output Total 200 ml Balance 150 ml 650 ml Intake Oral 250 ml 440 ml IV Total 100 ml 210 ml Output Urine Total 200 ml # Voids 2 4 # Bowel Movements 1 Respiratory: clear Abdomen: soft, flat, non-tender, present bowel sounds Extremities: no tenderness Laboratory Tests Test 08/30/16 05:40 White Blood Count 10.1 K/UL (4.8-10.8) Red Blood Count 3.90 M/UL (4.70-6.10) L Hemoglobin 11.5 G/DL (14.2-18.0) L Hematocrit 36.0 % (42.0-52.0) L Mean Corpuscular Volume 92 FL (80-99) Mean Corpuscular Hemoglobin 29.5 PG (27.0-31.0) Mean Corpuscular Hemoglobin Concent 32.0 G/DL (32.0-36.0) Red Cell Distribution Width 14.7 % (11.6-14.8) Platelet Count 385 K/UL (150-450) Mean Platelet Volume 5.6 FL (6.5-10.1) L Neutrophils (%) (Auto) 70.6 % (45.0-75.0) Lymphocytes (%) (Auto) 16.6 % (20.0-45.0) L Monocytes (%) (Auto) 7.8 % (1.0-10.0) Eosinophils (%) (Auto) 4.0 % (0.0-3.0) H Basophils (%) (Auto) 1.1 % (0.0-2.0) Sodium Level 136 mEQ/L (135-145) Potassium Level 4.4 mEQ/L (3.4-4.9) Chloride Level 98 mEQ/L (98-107) Carbon Dioxide Level 22 mEQ/L (20-30) Anion Gap 16 (5-15) H Blood Urea Nitrogen 11 mg/dL (7-23) Creatinine 1.7 mg/dL (0.7-1.2) H Estimat Glomerular Filtration Rate 40.7 mL/min (>60) Glucose Level 135 mg/dL (74-106) H Calcium Level 8.5 mg/dL (8.6-10.2) L Phosphorus Level 3.3 mg/dL (2.5-4.8) Magnesium Level 1.5 mg/dL (1.7-2.5) L Total Bilirubin 0.5 mg/dL (0.0-1.2) Aspartate Amino Transf (AST/SGOT) 18 U/L (5-40) Alanine Aminotransferase (ALT/SGPT) 17 U/L (3-41) Alkaline Phosphatase 134 U/L (40-129) H C-Reactive Protein, Quantitative 0.7 mg/dL (< 0.5) H Total Protein 7.6 g/dL (6.6-8.7) Albumin 3.0 g/dL (3.5-5.2) L Globulin 4.6 g/dL Albumin/Globulin Ratio 0.6 (1.0-2.7) L Assessment Additional Comments S/P Intra abdominal phlegmon Plan Additional Comments Continue as before EDWIN NOGUEIRA Aug 30, 2016 16:49
--- NOTE | 2016-08-30 17:13 | Infectious Diseases Prog Note ---
Assessment/Plan Problems: (1) Sepsis Assessment & Plan: improving, with repeated CT abdomen didn't show any leakage at the anastomosis site, continue unasyn , fluconazol, and iv flagyl empirically to cover for possible mesenteric phlegmon. stool culture is negative , and repeated C diff toxin is negative , blood culture is negative . recommend to continue current antibiotics for two more weeks , with follow up with general surgery (2) Watery diarrhea Assessment & Plan: improving, suspect short bowel syndrome VS colitis, stool for C diff is negative, and culture is negative , on iv unasyn and flagyl for colitis (3) Leak of anastomosis between gastrointestinal structures Assessment & Plan: no evidence of leakage on repeated CT scan , had barium enema which was negative for leakage , recommend follow up with general surgery (4) MIGNON (acute kidney injury) Assessment & Plan: improving, due to sepsis and dehydration,monitor urine output and renal function test, avoid nephrotoxic meds , renal is following (5) Abdominal pain Assessment & Plan: chronic due to multiple surgeries, continue pain management and follow up with general surgery Subjective Gastrointestinal/Abdominal: Reports: other - cramps, pressure Allergies: Coded Allergies: No Known Allergies (Unverified , 07/26/16) Subjective he has mild cramps , tolerated oral diet well, and had BM , non bloody . Objective Vital Signs Last 24 Hour Vital Signs Date Time Temp Pulse Resp B/P Pulse Ox O2 Delivery O2 Flow Rate FiO2 08/30/16 16:00 97.9 80 18 130/83 98 Room Air 08/30/16 11:49 98.1 72 19 120/81 98 Room Air 08/30/16 08:12 93 134/90 08/30/16 08:12 93 134/90 08/30/16 07:49 97.8 93 21 134/90 98 Room Air 08/30/16 04:00 97.8 72 19 138/82 98 Room Air 08/30/16 00:00 97.5 74 18 129/84 99 Room Air 08/29/16 20:17 78 125/84 08/29/16 20:14 98.2 78 18 125/84 99 Room Air Height (Feet): 5 Height (Inches): 6.00 Weight (Pounds): 160 General Appearance: WD/WN, no acute distress HEENT: normocephalic, atraumatic, anicteric, mucous membranes moist Respiratory/Chest: chest wall non-tender, lungs clear, normal breath sounds, no respiratory distress, no accessory muscle use Cardiovascular: normal peripheral pulses, normal rate, regular rhythm, no gallop/murmur Abdomen: normal bowel sounds, no organomegaly, non distended, no mass, tender Extremities: no cyanosis, no clubbing Skin: no rash, no lesions Microbiology Date/Time Source Procedure Growth Status 08/30/16 06:30 Stool Clostridium difficile Toxin Assay - Final Complete Laboratory Tests Test 08/30/16 05:40 White Blood Count 10.1 K/UL (4.8-10.8) Red Blood Count 3.90 M/UL (4.70-6.10) L Hemoglobin 11.5 G/DL (14.2-18.0) L Hematocrit 36.0 % (42.0-52.0) L Mean Corpuscular Volume 92 FL (80-99) Mean Corpuscular Hemoglobin 29.5 PG (27.0-31.0) Mean Corpuscular Hemoglobin Concent 32.0 G/DL (32.0-36.0) Red Cell Distribution Width 14.7 % (11.6-14.8) Platelet Count 385 K/UL (150-450) Mean Platelet Volume 5.6 FL (6.5-10.1) L Neutrophils (%) (Auto) 70.6 % (45.0-75.0) Lymphocytes (%) (Auto) 16.6 % (20.0-45.0) L Monocytes (%) (Auto) 7.8 % (1.0-10.0) Eosinophils (%) (Auto) 4.0 % (0.0-3.0) H Basophils (%) (Auto) 1.1 % (0.0-2.0) Sodium Level 136 mEQ/L (135-145) Potassium Level 4.4 mEQ/L (3.4-4.9) Chloride Level 98 mEQ/L (98-107) Carbon Dioxide Level 22 mEQ/L (20-30) Anion Gap 16 (5-15) H Blood Urea Nitrogen 11 mg/dL (7-23) Creatinine 1.7 mg/dL (0.7-1.2) H Estimat Glomerular Filtration Rate 40.7 mL/min (>60) Glucose Level 135 mg/dL (74-106) H Calcium Level 8.5 mg/dL (8.6-10.2) L Phosphorus Level 3.3 mg/dL (2.5-4.8) Magnesium Level 1.5 mg/dL (1.7-2.5) L Total Bilirubin 0.5 mg/dL (0.0-1.2) Aspartate Amino Transf (AST/SGOT) 18 U/L (5-40) Alanine Aminotransferase (ALT/SGPT) 17 U/L (3-41) Alkaline Phosphatase 134 U/L (40-129) H C-Reactive Protein, Quantitative 0.7 mg/dL (< 0.5) H Total Protein 7.6 g/dL (6.6-8.7) Albumin 3.0 g/dL (3.5-5.2) L Globulin 4.6 g/dL Albumin/Globulin Ratio 0.6 (1.0-2.7) L Current Medications Medications (Trade) Dose Ordered Sig/Arti Route PRN Reason Start Time Stop Time Status Last Admin Dose Admin Acetaminophen (Tylenol) 650 mg Q4H PRN ORAL Mild Pain (Pain Scale 1-3) 08/26/16 17:30 09/25/16 17:29 08/27/16 21:36 Amlodipine Besylate (Norvasc) 10 mg DAILY ORAL 08/27/16 09:00 09/26/16 08:59 08/30/16 08:12 Ampicillin Sodium/ Sulbactam Sodium/ Sodium Chloride (Unasyn/Sodium Chloride) 110 ml @ 220 mls/hr Q8H IVPB 08/26/16 21:00 09/01/16 04:59 08/30/16 12:45 Dronabinol 5 mg 5 mg TID ORAL 08/26/16 21:30 09/25/16 21:29 08/30/16 12:45 Epoetin [place] (Procrit (for non ESRD use)) 5,000 units SUN-SUN-SUN SUBQ 08/28/16 21:00 09/27/16 20:59 Fluconazole/ Sodium Chloride 100 ml @ 100 mls/hr Q24H IV 08/28/16 15:00 09/04/16 14:59 08/30/16 13:56 Hydromorphone HCl (Dilaudid) 0.5 mg Q4H PRN IVP Severe Pain (Pain Scale 7-10) 08/26/16 17:45 09/02/16 17:44 Lactobacillus Acidophilus (Culturelle) 1 tab THREE TIMES A DAY ORAL 08/26/16 18:00 09/25/16 17:59 08/30/16 12:45 Metoprolol Tartrate (Lopressor) 25 mg Q12HR ORAL 08/26/16 21:00 09/25/16 20:59 08/30/16 08:12 Metronidazole (Flagyl) 100 ml @ 100 mls/hr Q8HR IVPB 08/28/16 14:00 09/04/16 13:59 08/30/16 13:55 Neomycin/ Polymyxin/ Gramicidin (Neosporin Op Soln) 1 drop Q6HR RIGHT EYE 08/30/16 12:00 09/06/16 11:59 08/30/16 12:44 Ondansetron HCl (Zofran) 4 mg Q8H PRN IVP Nausea & Vomiting 08/26/16 19:15 09/25/16 19:14 Potassium Chloride (KCl 10% 40mEq Oral solution) 40 meq TWICE A DAY ORAL 08/30/16 18:30 09/29/16 18:29 Tamsulosin HCl (Flomax) 0.4 mg BID ORAL 08/26/16 18:00 09/25/16 17:59 08/30/16 08:12 Piyush Harris M.D. Aug 30, 2016 17:13
[2016-08-30] MEDS: KCl 10% 40mEq/30ml liquid ORAL SCH (17:49)
[2016-08-30 20:00] VITALS: BP 132/86
[2016-08-30] MEDS: Epogen (for non ESRD use) SUBQ SCH (20:07)
--- NOTE | 2016-08-30 23:12 | General Progress Note ---
Assessment/Plan Assessment/Plan Assessment - abd pain - improved - Leukocytosis - now lower - CT negative for abscess. - s/p multiple abd surgeries - now slow recovery - anemia - weakness - needs rehab - anorexia - needs encouragement - loose BM Recommendations - Push po - Abx - OOB/PT - Elevate HOB - d/c planning per PMD Subjective Allergies: Coded Allergies: No Known Allergies (Unverified , 07/26/16) Subjective c/o weakness d/w pt re labs looking forward to d/c Objective Last 24 Hour Vital Signs Date Time Temp Pulse Resp B/P Pulse Ox O2 Delivery O2 Flow Rate FiO2 08/30/16 20:06 83 132/86 08/30/16 20:00 97.7 83 18 132/86 98 Room Air 08/30/16 16:00 97.9 80 18 130/83 98 Room Air 08/30/16 11:49 98.1 72 19 120/81 98 Room Air 08/30/16 08:12 93 134/90 08/30/16 08:12 93 134/90 08/30/16 07:49 97.8 93 21 134/90 98 Room Air 08/30/16 04:00 97.8 72 19 138/82 98 Room Air 08/30/16 00:00 97.5 74 18 129/84 99 Room Air Intake and Output 08/29/16 08/30/16 19:00 07:00 Intake Total 350 ml 650 ml Output Total 200 ml Balance 150 ml 650 ml Intake Oral 250 ml 440 ml IV Total 100 ml 210 ml Output Urine Total 200 ml # Voids 2 4 # Bowel Movements 1 Laboratory Tests 08/30/16 05:40: White Blood Count 10.1, Red Blood Count 3.90L, Hemoglobin 11.5L, Hematocrit 36.0L, Mean Corpuscular Volume 92, Mean Corpuscular Hemoglobin 29.5, Mean Corpuscular Hemoglobin Concent 32.0, Red Cell Distribution Width 14.7, Platelet Count 385, Mean Platelet Volume 5.6L, Neutrophils (%) (Auto) 70.6, Lymphocytes ( %) (Auto) 16.6L, Monocytes (%) (Auto) 7.8, Eosinophils (%) (Auto) 4.0H, Basophils (%) (Auto) 1.1, Sodium Level 136, Potassium Level 4.4, Chloride Level 98, Carbon Dioxide Level 22, Anion Gap 16H, Blood Urea Nitrogen 11, Creatinine 1.7H, Estimat Glomerular Filtration Rate 40.7, Glucose Level 135H, Calcium Level 8.5L, Phosphorus Level 3.3, Magnesium Level 1.5L, Total Bilirubin 0.5, Aspartate Amino Transf (AST/SGOT) 18, Alanine Aminotransferase (ALT/SGPT) 17, Alkaline Phosphatase 134H, C-Reactive Protein, Quantitative 0.7H, Total Protein 7.6, Albumin 3.0L, Globulin 4.6, Albumin/Globulin Ratio 0.6L Height (Feet): 5 Height (Inches): 6.00 Weight (Pounds): 160 Objective WDWN NCAT supple CTA RRR abd soft ND, mild RLQ fullness and TTP No edema non focal ALVAREZ MARTINEZ Aug 30, 2016 23:12
[2016-08-31] VITALS: BP 131/87
[2016-08-31 04:00] VITALS: BP 144/92
[2016-08-31] MEDS: metroNIDAZOLE 500mg 100 ML IVPB SCH ×3 (04:53→21:28)
[2016-08-31] MEDS: Neosporin Oph Soln 5ml Btl RIGHT EYE SCH ×3 (04:54→18:13)
[2016-08-31] MEDS: Ampicillin/Sulbactam Sod 3 GM in NS 110 ML IVPB SCH ×3 (04:54→21:27)
[2016-08-31 06:31] LABS: BASOPHILS % (AUTO) 1.1 % (0.0-2.0); EOSINOPHILS % (AUTO) 3.1 % (0.0-3.0); LYMPHOCYTES % (AUTO) 17.8 % (20.0-45.0); MEAN CORPUSCULAR HEMOGLOBIN 30.7 PG (27.0-31.0); MEAN CORPUSCULAR HGB CONC 33.1 G/DL (32.0-36.0); MEAN CORPUSCULAR VOLUME 93 FL (80-99); MEAN PLATELET VOLUME 5.7 FL (6.5-10.1); PLATELET COUNT 389 K/UL (150-450); RED BLOOD COUNT 4.01 M/UL (4.70-6.10); RED CELL DISTRIBUTION WIDTH 14.7 % (11.6-14.8); WHITE BLOOD COUNT 10.1 K/UL (4.8-10.8)
[2016-08-31 08:00] VITALS: BP 135/92
[2016-08-31] MEDS: KCl 10% 40mEq/30ml liquid ORAL SCH ×2 (08:45→18:13)
[2016-08-31] MEDS: Dronabinol 2.5mg Cap ORAL SCH ×3 (08:45→18:12)
[2016-08-31] MEDS: Tamsulosin 0.4mg cap ORAL SCH ×2 (08:45→18:12)
[2016-08-31] MEDS: Metoprolol 25mg tab ORAL SCH ×2 (08:46→21:32)
[2016-08-31] MEDS: Lactobacillus-GG tablet ORAL SCH ×3 (08:46→18:12)
--- NOTE | 2016-08-31 10:23 | General Progress Note ---
Assessment/Plan Assessment/Plan Assessment - abd pain - improved - Leukocytosis - now lower - CT negative for abscess. - s/p multiple abd surgeries - now slow recovery - anemia - weakness - needs rehab - anorexia - needs encouragement - loose BM Recommendations - Push po - Abx - OOB/PT - Elevate HOB - d/c planning per PMD Subjective Allergies: Coded Allergies: No Known Allergies (Unverified , 07/26/16) Subjective c/o weakness d/w pt re labs walking few steps Objective Last 24 Hour Vital Signs Date Time Temp Pulse Resp B/P Pulse Ox O2 Delivery O2 Flow Rate FiO2 08/31/16 09:52 97.5 08/31/16 08:46 82 135/92 08/31/16 08:46 82 135/92 08/31/16 08:00 97.5 82 20 135/92 98 Room Air 08/31/16 04:00 97.9 82 18 144/92 98 Room Air 08/31/16 00:00 98.2 77 18 131/87 99 Room Air 08/30/16 20:06 83 132/86 08/30/16 20:00 97.7 83 18 132/86 98 Room Air 08/30/16 16:00 97.9 80 18 130/83 98 Room Air 08/30/16 11:49 98.1 72 19 120/81 98 Room Air Intake and Output 08/30/16 08/31/16 19:00 07:00 Intake Total 720 ml 570 ml Balance 720 ml 570 ml Intake Oral 720 ml 360 ml IV Total 210 ml # Voids 2 6 Laboratory Tests 08/31/16 05:45: White Blood Count 10.1, Red Blood Count 4.01L, Hemoglobin 12.3L, Hematocrit 37.1L, Mean Corpuscular Volume 93, Mean Corpuscular Hemoglobin 30.7, Mean Corpuscular Hemoglobin Concent 33.1, Red Cell Distribution Width 14.7, Platelet Count 389, Mean Platelet Volume 5.7L, Neutrophils (%) (Auto) 72.0, Lymphocytes ( %) (Auto) 17.8L, Monocytes (%) (Auto) 6.0, Eosinophils (%) (Auto) 3.1H, Basophils (%) (Auto) 1.1, C-Reactive Protein, Quantitative 0.5 Height (Feet): 5 Height (Inches): 6.00 Weight (Pounds): 160 Objective WDWN NCAT supple CTA RRR abd soft ND, mild RLQ fullness and TTP No edema non focal ALVAREZ MARTINEZ Aug 31, 2016 10:23
[2016-08-31 11:46] VITALS: BP 124/85
--- NOTE | 2016-08-31 11:54 | General Progress Note ---
Assessment/Plan Status: stable Status Narrative depressed- awaiting Medicare appeal Assessment/Plan - Resolving acute renal failure (ATN) - Sepsis, Resolving peritonitis - Watery diarrhea C diff negative - Suspected Leak of anastomosis between gastrointestinal structures - Anemia - HTN Plan: start Lexapro CT abd results noted Mag Phos supplement as needed Had Transfusion Antibiotics per ID on Flagyl, Unasyn, Fluconozol Marinol, working well BP control PT OT incentive spirometery DC to ECF in am - will talk to family Subjective ROS Limited/Unobtainable: No Constitutional: Reports: malaise, weakness Gastrointestinal/Abdominal: Reports: other - bloated Allergies: Coded Allergies: No Known Allergies (Unverified , 07/26/16) Objective Last 24 Hour Vital Signs Date Time Temp Pulse Resp B/P Pulse Ox O2 Delivery O2 Flow Rate FiO2 08/31/16 09:52 97.5 08/31/16 08:46 82 135/92 08/31/16 08:46 82 135/92 08/31/16 08:00 97.5 82 20 135/92 98 Room Air 08/31/16 04:00 97.9 82 18 144/92 98 Room Air 08/31/16 00:00 98.2 77 18 131/87 99 Room Air 08/30/16 20:06 83 132/86 08/30/16 20:00 97.7 83 18 132/86 98 Room Air 08/30/16 16:00 97.9 80 18 130/83 98 Room Air Intake and Output 08/30/16 08/31/16 19:00 07:00 Intake Total 720 ml 570 ml Balance 720 ml 570 ml Intake Oral 720 ml 360 ml IV Total 210 ml # Voids 2 6 Current Medications Medications (Trade) Dose Ordered Sig/Arti Route PRN Reason Start Time Stop Time Status Last Admin Dose Admin Acetaminophen (Tylenol) 650 mg Q4H PRN ORAL Mild Pain (Pain Scale 1-3) 08/26/16 17:30 09/25/16 17:29 08/27/16 21:36 Amlodipine Besylate (Norvasc) 10 mg DAILY ORAL 08/27/16 09:00 09/26/16 08:59 08/31/16 08:46 Ampicillin Sodium/ Sulbactam Sodium/ Sodium Chloride (Unasyn/Sodium Chloride) 110 ml @ 220 mls/hr Q8H IVPB 08/26/16 21:00 09/01/16 04:59 08/31/16 04:54 Dronabinol 5 mg 5 mg TID ORAL 08/26/16 21:30 09/25/16 21:29 08/31/16 08:45 Epoetin [place] (Procrit (for non ESRD use)) 5,000 units SUN-SUN-SUN SUBQ 08/28/16 21:00 09/27/16 20:59 08/30/16 20:07 Fluconazole/ Sodium Chloride 100 ml @ 100 mls/hr Q24H IV 08/28/16 15:00 09/04/16 14:59 08/30/16 13:56 Hydromorphone HCl (Dilaudid) 0.5 mg Q4H PRN IVP Severe Pain (Pain Scale 7-10) 08/26/16 17:45 09/02/16 17:44 08/31/16 09:22 Lactobacillus Acidophilus (Culturelle) 1 tab THREE TIMES A DAY ORAL 08/26/16 18:00 09/25/16 17:59 08/31/16 08:46 Metoprolol Tartrate (Lopressor) 25 mg Q12HR ORAL 08/26/16 21:00 09/25/16 20:59 08/31/16 08:46 Metronidazole (Flagyl) 100 ml @ 100 mls/hr Q8HR IVPB 08/28/16 14:00 09/04/16 13:59 08/31/16 04:53 Neomycin/ Polymyxin/ Gramicidin (Neosporin Op Soln) 1 drop Q6HR RIGHT EYE 08/30/16 12:00 09/06/16 11:59 08/31/16 04:54 Ondansetron HCl (Zofran) 4 mg Q8H PRN IVP Nausea & Vomiting 08/26/16 19:15 09/25/16 19:14 Potassium Chloride (KCl 10% 40mEq Oral solution) 40 meq TWICE A DAY ORAL 08/30/16 18:30 09/29/16 18:29 08/31/16 08:45 Tamsulosin HCl (Flomax) 0.4 mg BID ORAL 08/26/16 18:00 09/25/16 17:59 08/31/16 08:45 Laboratory Tests 08/31/16 05:45: White Blood Count 10.1, Red Blood Count 4.01L, Hemoglobin 12.3L, Hematocrit 37.1L, Mean Corpuscular Volume 93, Mean Corpuscular Hemoglobin 30.7, Mean Corpuscular Hemoglobin Concent 33.1, Red Cell Distribution Width 14.7, Platelet Count 389, Mean Platelet Volume 5.7L, Neutrophils (%) (Auto) 72.0, Lymphocytes ( %) (Auto) 17.8L, Monocytes (%) (Auto) 6.0, Eosinophils (%) (Auto) 3.1H, Basophils (%) (Auto) 1.1, C-Reactive Protein, Quantitative 0.5 Height (Feet): 5 Height (Inches): 6.00 Weight (Pounds): 160 General Appearance: lethargic Abdomen: soft Objective other PE not changed- no edema REBECCA SCHULTE Aug 31, 2016 11:54
[2016-08-31 16:00] VITALS: BP 110/79
--- NOTE | 2016-08-31 17:28 | Infectious Diseases Prog Note ---
Assessment/Plan Problems: (1) Sepsis Assessment & Plan: resolved , with repeated CT abdomen didn't show any leakage at the anastomosis site, continue unasyn , fluconazol, and iv flagyl empirically to cover for possible mesenteric phlegmon. stool culture is negative , and repeated C diff toxin is negative , blood culture is negative . recommend to continue current antibiotics for two more weeks , with follow up with general surgery (2) Watery diarrhea Assessment & Plan: improving, suspect short bowel syndrome , stool for C diff is negative twice , and culture is negative , on iv unasyn and flagyl for colitis and possible mesenteric phlegmon, will treat for additional two weeks (3) Leak of anastomosis between gastrointestinal structures Assessment & Plan: S/P three EXP LAP, now with no evidence of leakage on repeated CT scan , and had barium enema which was negative for leakage , uspect slow recover due to multiple surgeries, encourage ambulation, and follow up with general surgery (4) MIGNON (acute kidney injury) Assessment & Plan: improving, due to sepsis and dehydration,monitor urine output and renal function test, avoid nephrotoxic meds , renal is following (5) Abdominal pain Assessment & Plan: chronic due to multiple surgeries, continue pain management and follow up with general surgery Subjective Gastrointestinal/Abdominal: Reports: other - abdominal cramps on/off Allergies: Coded Allergies: No Known Allergies (Unverified , 07/26/16) All Systems: reviewed and negative except above Subjective he has mild cramps , tolerated oral diet well, and had BM , no vomiting, not ambulating well. Objective Vital Signs Last 24 Hour Vital Signs Date Time Temp Pulse Resp B/P Pulse Ox O2 Delivery O2 Flow Rate FiO2 08/31/16 16:00 97.3 83 18 110/79 96 Room Air 08/31/16 11:46 97.9 69 20 124/85 98 Room Air 08/31/16 09:52 97.5 08/31/16 08:46 82 135/92 08/31/16 08:46 82 135/92 08/31/16 08:00 97.5 82 20 135/92 98 Room Air 08/31/16 04:00 97.9 82 18 144/92 98 Room Air 08/31/16 00:00 98.2 77 18 131/87 99 Room Air 08/30/16 20:06 83 132/86 08/30/16 20:00 97.7 83 18 132/86 98 Room Air Height (Feet): 5 Height (Inches): 6.00 Weight (Pounds): 160 General Appearance: WD/WN, no acute distress HEENT: normocephalic, atraumatic, anicteric, mucous membranes moist, PERRL, EOMI, pharynx normal Respiratory/Chest: chest wall non-tender, lungs clear, normal breath sounds, no respiratory distress, no accessory muscle use Cardiovascular: normal peripheral pulses, normal rate, regular rhythm, no gallop/murmur Abdomen: normal bowel sounds, soft, non tender, no organomegaly, non distended , no mass, hypoactive bowel sounds Extremities: no cyanosis, no clubbing Skin: no rash, no lesions Microbiology Date/Time Source Procedure Growth Status 08/30/16 06:30 Stool Clostridium difficile Toxin Assay - Final Complete Laboratory Tests Test 08/31/16 05:45 White Blood Count 10.1 K/UL (4.8-10.8) Red Blood Count 4.01 M/UL (4.70-6.10) L Hemoglobin 12.3 G/DL (14.2-18.0) L Hematocrit 37.1 % (42.0-52.0) L Mean Corpuscular Volume 93 FL (80-99) Mean Corpuscular Hemoglobin 30.7 PG (27.0-31.0) Mean Corpuscular Hemoglobin Concent 33.1 G/DL (32.0-36.0) Red Cell Distribution Width 14.7 % (11.6-14.8) Platelet Count 389 K/UL (150-450) Mean Platelet Volume 5.7 FL (6.5-10.1) L Neutrophils (%) (Auto) 72.0 % (45.0-75.0) Lymphocytes (%) (Auto) 17.8 % (20.0-45.0) L Monocytes (%) (Auto) 6.0 % (1.0-10.0) Eosinophils (%) (Auto) 3.1 % (0.0-3.0) H Basophils (%) (Auto) 1.1 % (0.0-2.0) C-Reactive Protein, Quantitative 0.5 mg/dL (< 0.5) Current Medications Medications (Trade) Dose Ordered Sig/Arti Route PRN Reason Start Time Stop Time Status Last Admin Dose Admin Acetaminophen (Tylenol) 650 mg Q4H PRN ORAL Mild Pain (Pain Scale 1-3) 08/26/16 17:30 09/25/16 17:29 08/27/16 21:36 Amlodipine Besylate (Norvasc) 10 mg DAILY ORAL 08/27/16 09:00 09/26/16 08:59 08/31/16 08:46 Ampicillin Sodium/ Sulbactam Sodium/ Sodium Chloride (Unasyn/Sodium Chloride) 110 ml @ 220 mls/hr Q8H IVPB 08/26/16 21:00 09/01/16 04:59 08/31/16 12:08 Dronabinol 5 mg 5 mg TID ORAL 08/26/16 21:30 09/25/16 21:29 08/31/16 12:08 Epoetin [place] (Procrit (for non ESRD use)) 5,000 units SUN-SUN-SUN SUBQ 08/28/16 21:00 09/27/16 20:59 08/30/16 20:07 Escitalopram Oxalate (Lexapro) 10 mg DAILY ORAL 08/31/16 12:30 09/30/16 12:29 08/31/16 12:08 Fluconazole/ Sodium Chloride 100 ml @ 100 mls/hr Q24H IV 08/28/16 15:00 09/04/16 14:59 08/31/16 13:34 Hydromorphone HCl (Dilaudid) 0.5 mg Q4H PRN IVP Severe Pain (Pain Scale 7-10) 08/26/16 17:45 09/02/16 17:44 08/31/16 09:22 Lactobacillus Acidophilus (Culturelle) 1 tab THREE TIMES A DAY ORAL 08/26/16 18:00 09/25/16 17:59 08/31/16 12:08 Metoprolol Tartrate (Lopressor) 25 mg Q12HR ORAL 08/26/16 21:00 09/25/16 20:59 08/31/16 08:46 Metronidazole (Flagyl) 100 ml @ 100 mls/hr Q8HR IVPB 08/28/16 14:00 09/04/16 13:59 08/31/16 13:34 Neomycin/ Polymyxin/ Gramicidin (Neosporin Op Soln) 1 drop Q6HR RIGHT EYE 08/30/16 12:00 09/06/16 11:59 08/31/16 12:08 Ondansetron HCl (Zofran) 4 mg Q8H PRN IVP Nausea & Vomiting 08/26/16 19:15 09/25/16 19:14 Potassium Chloride (KCl 10% 40mEq Oral solution) 40 meq TWICE A DAY ORAL 08/30/16 18:30 09/29/16 18:29 08/31/16 08:45 Tamsulosin HCl (Flomax) 0.4 mg BID ORAL 08/26/16 18:00 09/25/16 17:59 08/31/16 08:45 Piyush Harris M.D. Aug 31, 2016 17:28
[2016-08-31 20:00] VITALS: BP 130/80
[2016-09-01] VITALS: BP 132/87
[2016-09-01 04:00] VITALS: BP 134/90
[2016-09-01] MEDS: metroNIDAZOLE 500mg 100 ML IVPB SCH ×2 (05:25→14:07)
[2016-09-01] MEDS: Neosporin Oph Soln 5ml Btl RIGHT EYE SCH ×3 (05:25→12:41)
[2016-09-01 08:00] VITALS: BP 144/93
[2016-09-01] MEDS: Metoprolol 25mg tab ORAL SCH (09:28)
[2016-09-01] MEDS: Tamsulosin 0.4mg cap ORAL SCH (09:28)
[2016-09-01] MEDS: KCl 10% 40mEq/30ml liquid ORAL SCH (09:28)
[2016-09-01] MEDS: Dronabinol 2.5mg Cap ORAL SCH ×2 (09:29→14:04)
[2016-09-01] MEDS: Lactobacillus-GG tablet ORAL SCH ×2 (09:34→14:04)
--- NOTE | 2016-09-01 11:37 | General Progress Note ---
Assessment/Plan Status: stable Status Narrative Medicare appeal denied Assessment/Plan - Resolving acute renal failure (ATN) - Sepsis, Resolving peritonitis - Watery diarrhea C diff negative - Suspected Leak of anastomosis between gastrointestinal structures - Anemia - HTN Plan: DC ECF today- 2 week of antibiotics OnLexapro CT abd results noted Had Transfusion on Flagyl, Unasyn, Fluconozol Marinol, working well BP control incentive spirometery discussed with Mumtaz , son in law Subjective ROS Limited/Unobtainable: No Constitutional: Reports: malaise Allergies: Coded Allergies: No Known Allergies (Unverified , 07/26/16) Objective Last 24 Hour Vital Signs Date Time Temp Pulse Resp B/P Pulse Ox O2 Delivery O2 Flow Rate FiO2 09/01/16 09:28 80 144/93 09/01/16 09:28 80 144/93 09/01/16 08:00 97.9 80 21 144/93 98 Room Air 09/01/16 04:00 97.3 86 18 134/90 99 Room Air 09/01/16 00:00 98.6 75 18 132/87 98 Room Air 08/31/16 21:32 80 130/80 08/31/16 20:00 98.1 80 18 130/80 94 Room Air 08/31/16 16:00 97.3 83 18 110/79 96 Room Air 08/31/16 11:46 97.9 69 20 124/85 98 Room Air Intake and Output 08/31/16 09/01/16 19:00 07:00 Intake Total 260 ml 480 ml Balance 260 ml 480 ml Intake Oral 260 ml 480 ml # Voids 3 5 Current Medications Medications (Trade) Dose Ordered Sig/Arti Route PRN Reason Start Time Stop Time Status Last Admin Dose Admin Acetaminophen (Tylenol) 650 mg Q4H PRN ORAL Mild Pain (Pain Scale 1-3) 08/26/16 17:30 09/25/16 17:29 08/27/16 21:36 Amlodipine Besylate (Norvasc) 10 mg DAILY ORAL 08/27/16 09:00 09/26/16 08:59 09/01/16 09:28 Dronabinol 5 mg 5 mg TID ORAL 08/26/16 21:30 09/25/16 21:29 09/01/16 09:29 Epoetin [place] (Procrit (for non ESRD use)) 5,000 units MON-WED-SUN SUBQ 08/28/16 21:00 09/27/16 20:59 08/30/16 20:07 Escitalopram Oxalate (Lexapro) 10 mg DAILY ORAL 08/31/16 12:30 09/30/16 12:29 09/01/16 09:29 Fluconazole/ Sodium Chloride 100 ml @ 100 mls/hr Q24H IV 08/28/16 15:00 09/04/16 14:59 08/31/16 13:34 Hydromorphone HCl (Dilaudid) 0.5 mg Q4H PRN IVP Severe Pain (Pain Scale 7-10) 08/26/16 17:45 09/02/16 17:44 08/31/16 09:22 Lactobacillus Acidophilus (Culturelle) 1 tab THREE TIMES A DAY ORAL 08/26/16 18:00 09/25/16 17:59 09/01/16 09:34 Metoprolol Tartrate (Lopressor) 25 mg Q12HR ORAL 08/26/16 21:00 09/25/16 20:59 09/01/16 09:28 Metronidazole (Flagyl) 100 ml @ 100 mls/hr Q8HR IVPB 08/28/16 14:00 09/04/16 13:59 09/01/16 05:25 Neomycin/ Polymyxin/ Gramicidin (Neosporin Op Soln) 1 drop Q6HR RIGHT EYE 08/30/16 12:00 09/06/16 11:59 09/01/16 05:25 Ondansetron HCl (Zofran) 4 mg Q8H PRN IVP Nausea & Vomiting 08/26/16 19:15 09/25/16 19:14 Potassium Chloride (KCl 10% 40mEq Oral solution) 40 meq TWICE A DAY ORAL 08/30/16 18:30 09/29/16 18:29 09/01/16 09:28 Tamsulosin HCl (Flomax) 0.4 mg BID ORAL 08/26/16 18:00 09/25/16 17:59 09/01/16 09:28 Height (Feet): 5 Height (Inches): 6.00 Weight (Pounds): 160 General Appearance: no apparent distress Cardiovascular: normal rate Respiratory/Chest: lungs clear Abdomen: soft Objective other PE not changed- no edema FOULADIAN,REBECCA Sep 01, 2016 11:37
[2016-09-01 11:52] VITALS: BP 147/95
[2016-09-01] MEDS ORDERED: NS 550ML IV ONE (14:28)
--- NOTE | 2016-09-01 15:58 | General Progress Note ---
Assessment/Plan Assessment/Plan Assessment - abd pain - improved - Leukocytosis - now lower - CT negative for abscess. - s/p multiple abd surgeries - now slow recovery - anemia - weakness - needs rehab - anorexia - needs encouragement - loose BM Recommendations - Push po - Abx - OOB/PT - Elevate HOB - d/c planning per PMD Subjective Allergies: Coded Allergies: No Known Allergies (Unverified , 07/26/16) Subjective c/o weakness appetite better walking few steps for d/c today Objective Last 24 Hour Vital Signs Date Time Temp Pulse Resp B/P Pulse Ox O2 Delivery O2 Flow Rate FiO2 09/01/16 11:52 96.6 77 21 147/95 97 Room Air 09/01/16 09:28 80 144/93 09/01/16 09:28 80 144/93 09/01/16 08:00 97.9 80 21 144/93 98 Room Air 09/01/16 04:00 97.3 86 18 134/90 99 Room Air 09/01/16 00:00 98.6 75 18 132/87 98 Room Air 08/31/16 21:32 80 130/80 08/31/16 20:00 98.1 80 18 130/80 94 Room Air 08/31/16 16:00 97.3 83 18 110/79 96 Room Air Intake and Output 08/31/16 09/01/16 19:00 07:00 Intake Total 260 ml 480 ml Balance 260 ml 480 ml Intake Oral 260 ml 480 ml # Voids 3 5 Height (Feet): 5 Height (Inches): 6.00 Weight (Pounds): 160 Objective WDWN NCAT supple CTA RRR abd soft ND, mild RLQ fullness and TTP No edema non focal ALVAREZ MARTINEZ Sep 01, 2016 15:58
--- NOTE | 2016-09-05 08:29 | Discharge Summary ---
Discharge Summary Hospital Course Date of Admission Aug 21, 2016 at 12:30 Date of Discharge Sep 01, 2016 at 14:29 Admitting Diagnosis SEPSIS HPI Jayme Forman is a 65 year old male who was admitted on Aug 21, 2016 at 12:30 for Sepsis Hospital Course dc summary dictated #[id number] Discharge Medications New Medications: Ampicillin Sodium/Sulbactam Na (Unasyn 3 Gm Vial) 3 Gm Vial 3 GM IJ Q8HR for 14 Days, VIAL Fluconazole (Fluconazole) 100 Mg Tablet 100 MG ORAL DAILY, #14 TAB 0 Refills Metronidazole* (Flagyl*) 500 Mg Tablet 500 MG ORAL EVERY 8 HOURS for 14 Days, TAB Amlodipine Besylate (Norvasc) 10 Mg Tablet 10 MG ORAL DAILY for 30 Days, TAB Dronabinol* (Marinol*) 2.5 Mg Capsule 5 MG ORAL TID for 30 Days, CAP Lactobacillus Rhamnosus Gg* (Culturelle*) 1 Each Capsule 1 TAB ORAL THREE TIMES A DAY for 30 Days, CAP Metoprolol Tartrate (Metoprolol Tartrate) 25 Mg Tablet 25 MG ORAL Q12HR for 30 Days, TAB Tamsulosin HCl (Flomax) 0.4 Mg Cap.er.24h 0.4 MG ORAL BID for 30 Days, CAP Continued Medications: Acetaminophen (Tylenol) 325 Mg Tablet 650 MG ORAL Q6H PRN for Prn Headache/Temp > 101, #30 TAB 0 Refills Discharge Discharge Disposition Patient was discharged to [facility] (04) Discharge Diagnoses: Discharge Instructions Discharge Instructions Follow up with: with PMD Services Upon Discharge: physical therapy Activity: as tolerated, other - PT OT Special Instructions I have been assigned to complete a D/C Summary on this account. I was not involved in the patient management For Surgical Patients May shower: Yes Tess Javed NP ([facility]) Sep 05, 2016 08:29
--- NOTE | 2016-09-05 09:38 | Discharge Summary 2 SIG ---
DATE OF ADMISSION: 08/21/2016 DATE OF DISCHARGE: 09/01/2016 REASON FOR ADMISSION: 65-year-old male with recent admission to [facility] for small bowel obstruction and anastomosis, status post exploratory laparotomy, was discharged on 08/17/2016, presented this time with elevated blood pressure, watery diarrhea, and generalized weakness. In the emergency room, CT of the abdomen and pelvis revealed possible intra-abdominal process. The patient presented with leukocytosis of 16.2, no fever, but evidence of dehydration with creatinine of 2.1. Urinalysis was negative for infection. Chest x-ray revealed no pneumonia. Lipase was elevated. Lactate normal. Troponin negative. C. difficile assay was ordered from the emergency room. The patient started on empiric vancomycin and Zosyn. The patient was given two liters of IV boluses and was admitted to the hospital for further management. ADMITTING DIAGNOSES; possible sepsis leukocytosis watery diarrhea possible intra-abdominal infection rule out C. difficile colitis resolving acute renal failure history of hypertension. HOSPITAL STAY: The patient admitted. The patient started on IV fluids and IV antibiotics. ID followed. Stool C. difficile was done twice and both times was negative. Blood culture were negative. Surgery consult was requested. The patient recently had three abdominal surgeries and there was a question of suspected leakage of anastomosis. Surgeon seen the patient, ordered Gastrografin enema to check for possible anastomosis leak. . Gastrografin enema did not show any evidence of leakage. GI followed the patient. GI recommended push oral fluids. GI prophylaxis provided. Stool culture was negative. Patient was able to tolerate diet, no nausea or vomiting. Diarrhea subsided. Renal parameters were closely monitored. Renal parameters improving. Creatinine down to 1.7. Recommended to avoid nephrotoxic in the future. Pain issues were addressed and managed. Leukocytosis subsequently resolved. The patient was anemic and required transfusion of two units of red blood cells. Prior to discharge, hemoglobin and hematocrit were stable. Blood pressure was controlled with current regimen of calcium channel karina and beta-karina and was stable. Due to anorexia, Marinol was added to medication regimen. DVT and GI prophylaxis provided. ID recommended two more weeks of Unasyn and Flagyl in the nursing home facility. The patient was working with the physical therapists, per physical therapy recommendations need extensive rehabilitation, since not ambulating well. Family agreed to short-term nursing placement. DISCHARGE DIAGNOSES: 1. Sepsis. 2. Peritonitis, resolving. 3. Watery diarrhea, (stool Clostridium difficile negative x2) 4. Possible short bowel syndrome. 5. Abdominal pain. 6. Anemia, status post blood transfusion. 7. Hypertension. 8. History of acute renal failure, resolving. 9. Anorexia. DISCHARGE MEDICATIONS: See medication reconciliation list. The patient need two more weeks of IV antibiotic as per ID recommendation. DISCHARGE INSTRUCTIONS: The patient discharged for short-term to nursing home facility for IV antibiotics and physical therapy. Follow up with medical doctor at the facility. Johnny Rai M.D. I have been assigned to dictate discharge summary on this account and I was not involved in the patient's management. Tess Javed ([facility]) N.PClara DR: Gloria JOB#: [id number] CC: DIANA
--- NOTE | 2016-09-15 09:10 | Consultation ---
DATE OF CONSULTATION: 08/23/2016 GASTROENTEROLOGY CONSULTATION CONSULTING PHYSICIAN: Erlin Jennings M.D. REFERRING PHYSICIAN: Johnny Rai M.D. CHIEF COMPLAINT: I was asked to see this patient by Dr. Johnny Rai for evaluation of abdominal issues. HISTORY OF PRESENT ILLNESS: The patient is a pleasant 65-year-old [place] man who has had a recent complicated hospitalization, who comes in with diarrhea. The patient had an ischemic bowel and underwent three separate exploratory laparotomies. There were issues related to his abdominal process including ischemic bowel obstruction and anastomotic leaks. He had two resections and had a prolonged hospital course requiring TPN and significant functional decline. Eventually, he was discharged home with family, and the family noticed at home he had gradually worsening abdominal pain with fever and diarrhea, and therefore, he was brought back to the hospital. His appetite remained poor and he remained very weak. The patient was found to have leukocytosis. A CT scan of the abdomen and pelvis showed right lower quadrant collection of small air bubbles, which was not noted on previous CT scan. This corresponded to roughly the patient's area of abdominal tenderness, and therefore, the patient was admitted for evaluation and treatment. He was placed on intravenous antibiotics, and his white count has progressively declined. He feels better and he states his pain is less, although still has some degree of pain. His appetite remains poor and he requires much encouragement. He remains weak. A barium enema was done to rule out any anastomosis leak and the enema contrast crossed the anastomosis with no evidence of leak. PAST MEDICAL HISTORY: History of ischemic bowel with obstruction and complicated postoperative course as described above and outlined in detail in progress notes from recent hospitalization. History of hypertension, history of renal failure resolution. FAMILY HISTORY: Noncontributory. SOCIAL HISTORY: The patient lives with his and he has a very supportive daughter and son-in-law who are frequently in the hospital at bedside. He does nor smoke or drink alcohol. REVIEW OF SYSTEMS: Otherwise negative. PHYSICAL EXAMINATION: GENERAL: A pleasant man, seen in his room, in no distress HEENT: Normocephalic and atraumatic. Sclerae are anicteric. Oropharynx clear. NECK: Supple. CHEST: Clear to auscultation. CARDIOVASCULAR: Regular rate. ABDOMEN: Soft with healed surgical scars. There was some mild degree of right greater than left lower quadrant abdomen tenderness to palpation without guarding or rebound. EXTREMITIES: No edema. LABORATORY DATA: Laboratory data was noted. IMAGING: CT scan was noted. ASSESSMENT: This patient has some air bubbles seen in the right lower quadrant near the anastomosis, which is apparently new on this CT scan compared to previous CT scan. This corresponds to where he has pain and tenderness and also it is consistent with his leukocytosis, and therefore, this is presumably a phlegmon or abscess in evolution. The area is roughly where the pains where and therefore this may be a remaining pocket of fluid that became infected once the drain was removed. In any case, there appears to be no anastomotic leak and responding to current antibiotic treatment, and therefore, the antibiotic treatment should be continued. Given the appearance of his CT scan in his recent hospitalization, I would continue with antibiotic treatment and I would give him a full 14-day course of broad-spectrum antibiotics as directed by the Infectious Disease corporate learning consultant. The patient would likely benefit from a repeat CT scan in about 10 days to document resolution of the current CT findings. Since there is no leak, he can be given his oral diet and we should encourage him to eat since he has become weak and anorexic. I would also place him on probiotics given his recent diarrhea. The diarrhea appears to likely be antibiotic associated since he is Clostridium difficile negative. I doubt if he has short bowel syndrome, nevertheless, this will be determined based on his future response to meals. At this time, however, he only appears to have one or two bowel movements a day in the hospital. RECOMMENDATIONS: Per above discussion and per orders written in the chart. Thank you for asking me to participate in the care this patient. Erlin Jennings M.D. DR: MELINA JOB#: [id number] CC:
== END 2016-09-01 14:29 | DRG 871 ==
LOC: EMR 11:30 → 2E 12:30 → EDBEDREQ 12:37 → 3E 08-26 13:55
DX: A41.9 Sepsis, unspecified organism (principal); N17.0 Acute kidney failure with tubular necrosis; K65.1 Peritoneal abscess; K91.2 Postsurgical malabsorption, not elsewhere classified; K91.89 Other postprocedural complications and disorders of digestive system; D64.9 Anemia, unspecified; I12.9 Hypertensive chronic kidney disease with stage 1 through stage 4 chronic kidney disease, or unspecified chronic kidney disease; N18.9 Chronic kidney disease, unspecified; R65.20 Severe sepsis without septic shock; R63.0 Anorexia; Z68.25 Body mass index [BMI] 25.0-25.9, adult
CPT/HCPCS: 36415; 71010; 74176; 74270; 80053; 81003; 82550; 82607; 82728; 82746; 82977; 83036; 83540; 83550; 83605; 83690; 83735; 83880; 84100; 84484; 84550; 85007; 85025; 86140; 86850; 86900; 86901; 86920; 87040; 87081; 87493; 93005; J8499